=== PATIENT | female | born 1935 | race Caucasian/White ===

== ENCOUNTER 2016-07-17 13:40 | Outpatient (RCR) | payer MEDICARE, BC ==
--- OUTSIDE RECORDS SUMMARY | 2016-05-28 14:05 | XMS REPORT | Continuity of Care Document ---
Author Author [facility] Organization [facility] Address Unknown Phone Unavailable Support Name Relationship Address Phone HIRAL WOLF MD Caregiver [facility] [address] [place] [address] JENNIFER PITTMAN FACP CCDS FACC Caregiver [address] [place] [address] DIXON HAMILTON Next Of Kin [address] [place] [address] Insurance Providers Payer Name Policy Number Subscriber Name Relationship [employer] Medicare [id number] Christa Hyatt 20 Self / Same As Patient Blue Cross [facility] Supp [id number] Christa Hyatt Self / Same As Patient Advance Directives Directive Response Recorded Date/Time Advance Directives Yes 06/01/14 7:29am Health Care Power of Front Office Help Y giulia-Dixon 06/01/14 7:29am Organ Donor No 06/01/14 7:29am Resuscitation Status Full Code 06/01/14 7:29am Problems No known problems or medical conditions. Medications Medication Dose Route Sig Days/Qty Instructions Order Date Discontinued Date Status Atenolol 100 Mg PO EVENING take 2 (50mg) tabs at hs 12/08/08 Active Atenolol 12/08/08 07/26/09 Discontinued Triamterene/HCTZ 1 Cap PO DAILY 12/08/08 Active Citalopram Hydrobromide 20 Mg PO DAILY NAME BRAND ONLY 12/08/08 Discontinued Fenofibrate 145 Mg PO DAILY 12/08/08 Active Ezetimibe 10 Mg PO DAILY EVERY AM 12/08/08 Active Aspirin 81 Mg PO DAILY 12/08/08 Active Diazepam (Valium) 5 Mg PO THREE TIMES A DAY PRN 12/08/08 Active Oxycodone Hcl/Acetaminophen 1 - 2 Tab PO EVERY 4HRS PRN 40 Qty PAIN CONTROL 12/08/08 Active Calcium Carbonate/Vitamin D3 500 Mg PO DAILY 12/08/08 08/13/12 Discontinued Multivitamins 1 Cap PO DAILY 12/08/08 08/13/12 Discontinued Atenolol 50 Mg PO DAILY 07/26/09 Active Metformin HCl (Glucophage) 500 Mg PO TWICE A DAY 06/29/10 Active Nitrofurantoin Macrocrystals 1 Cap PO TWICE A DAY Clcr <60 mL/minute: Contraindicated 05/28/11 09/27/11 Discontinued Citalopram Hydrobromide 20 Mg PO DAILY 01/22/12 Active Omeprazole 20 Mg PO DAILY 08/04/12 Active Nitrofurantoin Macrocrystals 1 Each PO BEDTIME 08/05/12 08/22/12 Discontinued Acetaminophen 650 Mg PO EVERY 6 HOURS PRN 08/22/12 06/01/14 Discontinued Multivitamins W-Minerals 1 Each PO DAILY 08/22/12 02/11/14 Discontinued Senna 2 Ea PO TWICE A DAY PRN 08/22/12 02/11/14 Discontinued Trospium Chloride 20 Mg PO EVERY 12 HOURS GIVE 1 HOUR BEFORE MEAL OR ON EMPTY STOMACH 08/22/12 02/12/14 Discontinued Nitrofurantoin Macrocrystals 100 Mg PO TWICE A DAY 08/22/12 Discontinued Trimethoprim 100 Mg PO BEDTIME 02/12/14 06/01/14 Discontinued [Urelle] 1 Tab PO FOUR TIMES DAILY 02/12/14 06/01/14 Discontinued Ascorbic Acid 1,000 Mg PO TWICE A DAY 06/01/14 Active Social History Social History Problem Response Recorded Date/Time Alcohol Use Denies Use 08/15/2012 10:30am Recreational Drug Use No 08/15/2012 10:30am Recent Foreign Travel No 08/15/2012 10:30am Recent Infectious Disease Exposure No 08/15/2012 10:30am Hospitalization with Isolation Denies 08/22/2012 8:28pm Sexually Transmitted Disease No 08/15/2012 10:30am HIV/AIDS No 08/15/2012 10:30am Smoking Status Former Smoker 06/01/2014 7:29am Query Response Start Date Stop Date Smoking Status Former Smoker 06/01/1966 Hospital Discharge Instructions No hospital discharge instructions. Plan of Care No plan of care. Functional Status No functional status results. Allergies, Adverse Reactions, Alerts Allergen Type Severity Reaction Status Last Updated IV Dye, Iodine Containing Contrast Allergy Mild Active 12/03/08 Penicillins ([id number]) Allergy Mild Active 12/03/08 Cephalosporins ([id number]) Allergy Mild Active 12/03/08 Shellfish *RETIRED-12/14/11 Allergy Mild Active 12/03/08 lisinopril ([id number]) Allergy Mild Active 12/03/08 Nifedipine Allergy Mild Active 12/03/08 morphine Allergy Mild Active 12/03/08 Codeine Allergy Mild Active 12/03/08 propoxyphene ([id number]) Allergy Unknown Active 12/08/08 acetaminophen Allergy Unknown Active 12/08/08 glucagon ([id number]) Allergy Mild Active 12/03/08 furosemide ([id number]) Allergy Unknown Active 12/08/08 Sulindac Allergy Unknown Active 12/08/08 sulfamethoxazole ([id number]) Allergy Mild Active 12/03/08 Clarithromycin Allergy Mild Active 12/03/08 metoprolol ([id number]) Allergy Mild Active 12/03/08 paroxetine ([id number]) Allergy Mild Active 12/03/08 diltiazem ([id number]) Allergy Mild Active 12/03/08 sertraline ([id number]) Allergy Severe CANNOT BREATHE Active 12/08/08 Meperidine Allergy Unknown Active 12/08/08 atorvastatin ([id number]) Allergy Mild Active 12/03/08 latex Allergy Unknown Active 12/08/08 LIPATOR Allergy Unknown Active 12/08/08 TAPE Allergy Unknown CAN USE PAPER TAPE Active 12/08/08 Immunizations Name Given Type Date of Pneumonia Vaccine 01/22/09 Historical Date of Influenza Vaccine 02/08/14 Historical Hepatitis A No Historical Hepatitis B No Historical Tetanus Booster (TDap) More than 5yrs Historical Vital Signs Acute Vital Signs Vital Response Date/Time Temperature (Fahrenheit) 96.9 degrees F (97.6 - 99.5) Temperature (Calculated Celsius) 36.45956 degrees C (36.4 - 37.5) Temperature Source Tympanic Pulse Rate (adult) 64 bpm (60 - 90) Respiratory Rate 18 bpm (12 - 24) O2 Sat by Pulse Oximetry 91 % (88 - 100) Blood Pressure 128/73 mm Hg Height (Feet) 5 feet Height (Inches) 3.00 inches Height (Calculated Centimeters) 160.442847 cm Weight (Pounds) 202 pounds Weight (Calculated Grams) 63005.660 gm Weight (Calculated Kilograms) 91.881778 kilograms Calculated BMI 35.78 Results Laboratory Results Test Name Result Units Flags Reference Collection Date/Time Result Date/ Time Comments White Blood Count 8.4 10^3/uL 4.3-11.0 05/04/2014 12:20pm 05/04/2014 12 :29pm Red Blood Count 4.77 10^6/uL 4.35-5.85 05/04/2014 12:20pm 05/04/2014 12 :29pm Hemoglobin 14.1 G/DL 11.5-16.0 05/04/2014 12:20pm 05/04/2014 12:29pm Hematocrit 44 % 35-52 05/04/2014 12:20pm 05/04/2014 12:29pm Mean Corpuscular Volume 93 FL 80-99 05/04/2014 12:20pm 05/04/2014 12: 29pm Mean Corpuscular Hemoglobin 30 PG 25-34 05/04/2014 12:20pm 05/04/2014 12:29pm Mean Corpuscular Hemoglobin Concent 32 G/DL 32-36 05/04/2014 12:20pm 12:29pm Red Cell Distribution Width 14.0 % 10.0-14.5 05/04/2014 12:20pm 2014 12:29pm Platelet Count 281 10^3/uL 130-400 05/04/2014 12:20pm 05/04/2014 12: 29pm Mean Platelet Volume 10.1 FL 7.4-10.4 05/04/2014 12:20pm 05/04/2014 12: 29pm Sodium Level 140 MMOL/L 135-145 05/04/2014 12:20pm 05/04/2014 1:00pm Potassium Level 4.6 MMOL/L 3.6-5.0 05/04/2014 12:20pm 05/04/2014 1: 00pm Chloride Level 102 MMOL/L 98-107 05/04/2014 12:20pm 05/04/2014 1:00pm Carbon Dioxide Level 27 MMOL/L 21-32 05/04/2014 12:20pm 05/04/2014 1: 00pm Blood Urea Nitrogen 28 MG/DL H 7-18 05/04/2014 12:20pm 05/04/2014 1:00pm Creatinine 0.94 MG/DL 0.60-1.30 05/04/2014 12:20pm 05/04/2014 1:00pm BUN/Creatinine Ratio 30 05/04/2014 12:20pm 05/04/2014 1:00pm Estimat Glomerular Filtration Rate 58 05/04/2014 12:20pm 2014 1:00pm GFR INTERPRETIVE DATA UNITS FOR ESTIMATED GFR (eGFR): mL/min/1.73 M2 REFERENCE RANGE FOR ESTIMATED GFR (eGFR) eGFR NORMAL eGFR >60 MODERATELY DECREASED eGFR 30-59 SEVERLY DECREASED eGFR 15-29 KIDNEY FAILURE <15 (OR DIALYSIS) Glucose Level 120 MG/DL H 70-105 05/04/2014 12:20pm 05/04/2014 1:00pm Calcium Level 10.1 MG/DL 8.5-10.1 05/04/2014 12:20pm 05/04/2014 1:00pm White Blood Count 6.7 10^3/uL 4.3-11.0 06/01/2014 7:50am 06/01/2014 7: 55am Red Blood Count 4.42 10^6/uL 4.35-5.85 06/01/2014 7:50am 06/01/2014 7: 55am Hemoglobin 13.1 G/DL 11.5-16.0 06/01/2014 7:50am 06/01/2014 7:55am Hematocrit 41 % 35-52 06/01/2014 7:50am 06/01/2014 7:55am Mean Corpuscular Volume 93 FL 80-99 06/01/2014 7:50am 06/01/2014 7: 55am Mean Corpuscular Hemoglobin 30 PG 25-34 06/01/2014 7:50am 06/01/2014 7: 55am Mean Corpuscular Hemoglobin Concent 32 G/DL 32-36 06/01/2014 7:50am 05/2014 7:55am Red Cell Distribution Width 14.2 % 10.0-14.5 06/01/2014 7:50am 2014 7:55am Platelet Count 250 10^3/uL 130-400 06/01/2014 7:50am 06/01/2014 7:55am Mean Platelet Volume 10.1 FL 7.4-10.4 06/01/2014 7:50am 06/01/2014 7: 55am Neutrophils (%) (Auto) 69 % 42-75 06/01/2014 7:50am 06/01/2014 7:55am Lymphocytes (%) (Auto) 16 % 12-44 06/01/2014 7:50am 06/01/2014 7:55am Monocytes (%) (Auto) 9 % 0-12 06/01/2014 7:50am 06/01/2014 7:55am Eosinophils (%) (Auto) 6 % 0-10 06/01/2014 7:50am 06/01/2014 7:55am Basophils (%) (Auto) 1 % 0-10 06/01/2014 7:50am 06/01/2014 7:55am Neutrophils # (Auto) 4.6 X 10^3 1.8-7.8 06/01/2014 7:50am 06/01/2014 7: 55am Lymphocytes # (Auto) 1.1 X 10^3 1.0-4.0 06/01/2014 7:50am 06/01/2014 7: 55am Monocytes # (Auto) 0.6 X 10^3 0.0-1.0 06/01/2014 7:50am 06/01/2014 7: 55am Eosinophils # (Auto) 0.4 10^3/uL H 0.0-0.3 06/01/2014 7:50am 06/01/2014 7 :55am Basophils # (Auto) 0.1 10^3/uL 0.0-0.1 06/01/2014 7:50am 06/01/2014 7: 55am Prothrombin Time 12.7 SEC 12.2-14.7 06/01/2014 7:50am 06/01/2014 8: 05am INR Comment 1.0 0.8-1.4 06/01/2014 7:50am 06/01/2014 8:05am INTERPRETIVE DATA SUGGESTED THERAPEUTIC RANGE FOR INR'S: VENOUS THROMBOSIS, PULMONARY EMBOLISM, OR PREVENTION OF SYSTEMIC EMBOLISM (EG. IN ATRIAL FIBRILLATION): 2.0 - 3.0 MECHANICAL PROSTHETIC HEART VALVES: 2.5 - 3.5* *NOTE: INR'S UP TO 4.5 MAY BE NECESSARY IN SELECTED GROUPS OF HIGH RISK PATIENTS. [employer] CONSENSUS CONFERENCE ON ANTITHROMBOTIC THERAPY (2000). Activated Partial Thromboplast Time 32 SEC 24-35 06/01/2014 7:50am 05/2014 8:05am Sodium Level 140 MMOL/L 135-145 06/01/2014 7:50am 06/01/2014 8:22am Potassium Level 4.2 MMOL/L 3.6-5.0 06/01/2014 7:50am 06/01/2014 8:22am Chloride Level 104 MMOL/L 98-107 06/01/2014 7:50am 06/01/2014 8:22am Carbon Dioxide Level 25 MMOL/L 21-32 06/01/2014 7:50am 06/01/2014 8: 22am Blood Urea Nitrogen 25 MG/DL H 7-18 06/01/2014 7:50am 06/01/2014 8:22am Creatinine 1.00 MG/DL 0.60-1.30 06/01/2014 7:50am 06/01/2014 8:22am BUN/Creatinine Ratio 25 06/01/2014 7:50am 06/01/2014 8:22am Estimat Glomerular Filtration Rate 54 06/01/2014 7:50am 06/01/2014 8:22am GFR INTERPRETIVE DATA UNITS FOR ESTIMATED GFR (eGFR): mL/min/1.73 M2 REFERENCE RANGE FOR ESTIMATED GFR (eGFR) eGFR NORMAL eGFR >60 MODERATELY DECREASED eGFR 30-59 SEVERLY DECREASED eGFR 15-29 KIDNEY FAILURE <15 (OR DIALYSIS) Glucose Level 107 MG/DL H 70-105 06/01/2014 7:50am 06/01/2014 8:22am Calcium Level 10.1 MG/DL 8.5-10.1 06/01/2014 7:50am 06/01/2014 8:22am Total Bilirubin 0.4 MG/DL 0.1-1.0 06/01/2014 7:50am 06/01/2014 8:22am Alkaline Phosphatase 42 U/L 40-136 06/01/2014 7:50am 06/01/2014 8:22am Aspartate Amino Transf (AST/SGOT) 17 U/L 5-34 06/01/2014 7:50am 2014 8:22am Alanine Aminotransferase (ALT/SGPT) 13 U/L 0-55 06/01/2014 7:50am 06/01 8:22am Total Protein 6.8 G/DL 6.4-8.2 06/01/2014 7:50am 06/01/2014 8:22am Albumin 3.8 G/DL 3.2-4.5 06/01/2014 7:50am 06/01/2014 8:22am Triglycerides Level 175 MG/DL H <150 06/01/2014 7:50am 06/01/2014 8:22am Cholesterol Level 215 MG/DL H < 200 06/01/2014 7:50am 06/01/2014 8:22am HDL Cholesterol 49 MG/DL 40-60 06/01/2014 7:50am 06/01/2014 8:22am LDL Cholesterol Direct 140 MG/DL H 1-129 06/01/2014 7:50am 06/01/2014 8: 22am VLDL Cholesterol 35 MG/DL 5-40 06/01/2014 7:50am 06/01/2014 8:22am Procedures Procedure Status Date Provider(s) Color Doppler echocardiography completed 05/13/14 JENNIFER PITTMAN MD [facility] CCDS Tracing only of electrocardiogram completed 06/01/14 JENNIFER PITTMAN MD [facility] FAC CCDS Encounters Encounter Location Date/Time Departed [facility] Day [facility] 06/01/14 7:11am Registered Clinic [facility] 05/18/14 7:18am Registered Clinic [facility] 05/13/14 8:50am Registered Clinic [facility] 05/11/14 8:45am Registered Clinic [facility] 05/11/14 7:52am Registered Clinic [facility] 05/04/14 12:06pm
[~2016-07-17 13:40] MED LIST: AC325T PO; ASCO100083 PO; ASP81TEC PO; ATEN-156 PO; ATEN100T88; ATEN50TA PO; CALC1TAB29 PO; CTLP20T PO; DEXL60CA PO; DIAZ5TAB3 PO; EZET10TA5 PO; FENO145T2 PO; METH1TAB PO; METO-351 PO; MTF500T PO; MULT-608 PO; MULT1TAB12 PO; NITR-33 PO; NITR-65 PO; NITR100C3 PO; NYST15CR TP; OMEP-10 PO; OMEP20TA33 PO; OXYC-12 PO; OXYC-197 PO; SENN1TAB76 PO; TERBIN250T PO; TRIA1CAP PO; TRIM100T7 PO; TROSP20C PO; URELLE PO
== END 2016-07-30 14:29 | disposition home or self-care (01) ==
PROVIDERS: ATTEND Family Medicine
DX: R26.9 Unspecified abnormalities of gait and mobility (principal); Z91.81 History of falling; R53.1 Weakness

== ENCOUNTER → 2016-07-19 | Outpatient (CLI) | payer MEDICARE, BC ==
[~2016-07-19] MED LIST changes: +CATHETER FLUSH 10 ML SYR IV PRN; +IOHEXOL 350 MG/ML 100 ML (OMNIPAQUE 350) VIAL IV ONE; +NS 100 ML (IVPB) BAG IV ONE
[2016-07-19 07:20] LABS: CREATININE SERUM 0.96 MG/DL (0.60-1.30)
--- NOTE | 2016-07-19 10:11 | Diagnostic Imaging Report ---
PROCEDURE: CT abdomen and pelvis with and without contrast. TECHNIQUE: Precontrast acquisitions were acquired through the abdomen and pelvis. Multiple contiguous axial images were obtained through the abdomen and pelvis after the administration of intravenous contrast. INDICATION: Chronic cystitis. 100 mL of Omnipaque 350 is administered intravenously. FINDINGS: The unenhanced phase demonstrates no definite urinary tract stones. Portions of the bladder and distal aspect of the ureter on both sides are obscured by beam hardening artifacts from bilateral hip replacement. The kidneys have symmetric enhancement and contrast excretion. No hydronephrosis. Multiple cysts are seen in the kidneys up to 2.5 cm exophytic from the lower pole of the left kidney. The lung bases demonstrate minimal atelectasis. The liver, the spleen, the pancreas, and the adrenal glands appear unremarkable. Cholecystectomy clips are seen. There are additional surgical clips around the liver and stomach. There is also evidence of mesh repair of right subcostal ventral hernia. Also near the anterior abdominal wall at the level of the umbilicus, there is a 2.6 x 1.3 cm hyperdense lobulated lesion possibly related to a mesh or calcified hematoma. There is suggestion of prior hysterectomy. There is diverticulosis. No diverticulitis. There is moderate amount of fecal material in the colon. No bowel obstruction. No significant free fluid or fluid collection in the abdomen or pelvis. The abdominal aorta is normal in caliber. No para-aortic significantly enlarged lymph node is seen. The osseous structures demonstrate advanced degenerative changes in the lower lumbar spine and SI joints. Bilateral hip replacement is seen. IMPRESSION: 1. Diverticulosis. No diverticulitis. 2. Portions of the urinary bladder and distal ureters are obscured by artifacts from bilateral hip replacements. No definitive urinary tract stone is seen. No hydronephrosis. Dictated by: Dictated on workstation # [id number]
== END ==
LOC: RAD 06:52
PROVIDERS: ATTEND Urology
DX: N30.21 Other chronic cystitis with hematuria (principal)
CPT/HCPCS: 36415; 74178; 82565; 84520

== ENCOUNTER → 2016-11-06 | Outpatient (CLI) | payer MEDICARE ==
[~2016-11-06] MED LIST changes: -IOHEXOL 350 MG/ML 100 ML (OMNIPAQUE 350) VIAL IV ONE; -NS 100 ML (IVPB) BAG IV ONE; +REGADENOSON 0.4 MG/5 ML SYR (LEXISCAN) IV ONE
[2016-11-06 13:35] VITALS: BP 156/76
[2016-11-06 13:39] VITALS: BP 150/61
[2016-11-06 13:42] VITALS: BP 164/62
--- NOTE | 2016-11-07 07:12 | STRESS TEST ---
DATE OF SERVICE: 11/06/2016 PROCEDURE: Resting and post regadenoson technetium-99M tetrofosmin SPECT CT imaging. ORDERING PHYSICIAN: Hannah Swift MD PRIMARY CARE PHYSICIAN: Dr. Bhakta. CLINICAL DIAGNOSIS: Chest discomfort. Baseline images were carried out after injection of 10.18 mCi of technetium-99M tetrofosmin. This was followed by 0.4 mg regadenoson and 29.2 mCi of technetium-99M tetrofosmin for stress imaging. The electrocardiogram showed sinus rhythm at baseline and it did not change significantly with the regadenoson infusion. She had mild chest discomfort following regadenoson infusion, which resolved in a few minutes. Review of images at rest and following stress does not indicate any significant perfusion defects consistent with any significant myocardial ischemia or infarction. Gated images show normal global left ventricular systolic function with normal regional wall motion. Left ventricular ejection fraction is calculated to be 83%. Left ventricular end diastolic volume is 25 mL. TID is absent (1). CONCLUSIONS: 1. No evidence of any significant myocardial ischemia or infarction on this study. 2. Normal regional wall motion. 3. Normal to hyperdynamic left ventricular systolic function with a calculated ejection fraction of 83%. Job ID: [id number] DocumentID: [id number] Dictated Date: 11/06/2016 15:33:59 Public Services Librarian Date: 11/07/2016 04:48:43 Dictated By: HANNAH SWIFT MD, MA, FACP, FACC,
== END ==
LOC: CARD 12:23
PROVIDERS: ATTEND Internal Medicine Cardiovascular Disease
DX: I25.10 Atherosclerotic heart disease of native coronary artery without angina pectoris (principal); I65.23 Occlusion and stenosis of bilateral carotid arteries; E11.9 Type 2 diabetes mellitus without complications; R07.89 Other chest pain; R06.09 Other forms of dyspnea
CPT/HCPCS: 78452; 93017

== ENCOUNTER → 2016-11-16 | Outpatient (CLI) | payer MEDICARE ==
[~2016-11-16] MED LIST changes: -CATHETER FLUSH 10 ML SYR IV PRN; +CYCL5TAB PO; +NITR100C10; -REGADENOSON 0.4 MG/5 ML SYR (LEXISCAN) IV ONE; +TRAM-42 PO
== END ==
LOC: CARD 13:17
PROVIDERS: ATTEND Internal Medicine Cardiovascular Disease
DX: I25.10 Atherosclerotic heart disease of native coronary artery without angina pectoris (principal); I65.23 Occlusion and stenosis of bilateral carotid arteries; E11.9 Type 2 diabetes mellitus without complications; R07.89 Other chest pain; R06.09 Other forms of dyspnea
CPT/HCPCS: 93306

== ENCOUNTER → 2016-12-11 | Outpatient (CLI) | payer MEDICARE ==
[~2016-12-11] MED LIST changes: -CYCL5TAB PO; -NITR100C10; -TRAM-42 PO
== END ==
LOC: RAD 12:43
PROVIDERS: ATTEND Obstetrics & Gynecology
DX: Z12.31 Encounter for screening mammogram for malignant neoplasm of breast (principal)
CPT/HCPCS: 77067

== ENCOUNTER 2017-02-27 18:48 | Emergency (ER) | payer MEDICARE ==
[~2017-02-27] VITALS: Ht 160 cm; Wt 83.9 kg
[2017-02-27] MEDS ORDERED: NITR100C10 (18:54)
[2017-02-27] MEDS ORDERED: TETANUS,DIPTH,PERTUSS P/F (BOOSTRIX) 0.5 ML VIAL IM ONE (19:00)
--- NOTE | 2017-02-27 19:11 | ED Fall/Injury ---
General Chief Complaint: Trauma-Non Activation Stated Complaint: FALL Nursing Triage Note: fall Source: patient, EMS History of Present Illness Time seen by provider: 18:48 Initial Comments PT ARRIVES VIA EMS -NO IMMOBILIZATION PT STATES SHE WAS IN THE KITCHEN AND TRIPPED ON A RUG AND FELL FORWARD, ENDING UP IN THE LIVING ROOM. HITTING FACE AND CHEST AND KNEES ON THE FLOOR NO LOSS OF CONSCIOUSNESS C/O PAIN TO FACE, MOUTH, TEETH C/O PAIN TO MID CHEST C/O BILATERAL KNEES NO VISION CHANGES NO PARESTHESIAS OR MOTOR DEFICITS NO NECK OR BACK PAIN NO DIZZINESS NO NAUSEA/VOMITING NO HEADACHE Location Injury Occurred: home PCP: DR. WOLF Allergies and Home Medications Allergies Coded Allergies: sertraline (Verified Allergy, Severe, CANNOT BREATHE, 12/08/08) Cephalosporins (Unverified Allergy, Mild, 12/03/08) Iodinated Contrast Media - IV Dye (Unverified Allergy, Mild, 12/03/08) Penicillins (Unverified Allergy, Mild, 12/03/08) Shellfish (Unverified Allergy, Mild, 12/03/08) atorvastatin (Unverified Allergy, Mild, 12/03/08) clarithromycin (Unverified Allergy, Mild, 12/03/08) codeine (Unverified Allergy, Mild, PT HAS RECEIVED HYDROMORPHONE IN THE PAST, 02/07/16) diltiazem (Unverified Allergy, Mild, 12/03/08) glucagon (Unverified Allergy, Mild, 12/03/08) lisinopril (Unverified Allergy, Mild, 12/03/08) metoprolol (Unverified Allergy, Mild, 12/03/08) morphine (Unverified Allergy, Mild, PT HAS RECEIVED HYDROMORPHONE IN THE PAST, 02/07/16) nifedipine (Unverified Allergy, Mild, 12/03/08) paroxetine (Unverified Allergy, Mild, 12/03/08) sulfamethoxazole (Unverified Allergy, Mild, 12/03/08) acetaminophen (Verified Allergy, Unknown, 12/08/08) furosemide (Unverified Allergy, Unknown, 12/08/08) latex (Verified Allergy, Unknown, 12/08/08) meperidine (Verified Allergy, Unknown, PATIENT HAS RECEIVED FENTANYL IN THE PAST, 02/07/16) propoxyphene (Verified Allergy, Unknown, 12/08/08) sulindac (Verified Allergy, Unknown, 12/08/08) Uncoded Allergies: TAPE (Allergy, Unknown, CAN USE PAPER TAPE, 12/08/08) Home Medications Aspirin 81 Mg Tabec, 81 MG PO DAILY, (Reported) Citalopram Hydrobromide 20 Mg Tablet, 20 MG PO BID, (Reported) Cyclobenzaprine HCl 5 Mg Tablet, 5 MG PO Q8H, #15 Prescribed by: ROSA FLORES on 02/27/173 Diazepam 5 Mg Tablet, 5 MG PO TID PRN, (Reported) PANIC ATTACKS/ANXIETY DISORDER Ezetimibe 10 Mg Tablet, 10 MG PO DAILY, (Reported) EVERY AM Fenofibrate,Micronized 145 Mg Tablet, 145 MG PO DAILY, (Reported) NAME BRAND ONLY Metformin Hcl 500 Mg Tablet, 500 MG PO BID, (Reported) Methenamine Hippurate 1 Gm Tablet, 1 GM PO BID, (Reported) Metoprolol Succinate 25 Mg Tab.er.24h, 25 MG PO BID, (Reported) Nitrofurantoin Monohyd/M-Cryst 100 Mg Capsule, 100 MG PO BID, (Reported) started 01/30/16 for 10 days Nitrofurantoin Monohyd/M-Cryst 100 Mg Capsule, (Reported) Omeprazole Magnesium 20 Mg Tablet.dr, 20 MG PO BID, (Reported) Tramadol HCl 50 Mg Tablet, 50 MG PO Q4H, #20 Prescribed by: ROSA FLORES on 02/27/172142 Triamterene/Hctz 1 Each Capsule, 1 CAP PO DAILY, (Reported) NAME BRAND ONLY Constitutional: no symptoms reported Eyes: No Symptoms Reported Ears, Nose, Mouth, Throat: see HPI Respiratory: no symptoms reported Cardiovascular: see HPI, chest pain Gastrointestinal: other (LOWER ABDOMINAL PAIN FROM UTI) Genitourinary: dysuria, pain, other (DX WITH UTI YESTERDAY AT DR. WOLF'S OFFICE. ON MACROBID. HAS CHRONIC UTI'S AND SEES SPECIALIST IN [place] FOR THEM) Musculoskeletal: see HPI, other (BILATERAL KNEES AND CHEST ) Skin: other (LACERATION ABOVE RIGHT UPPER LIP) Psychiatric/Neurological: No Symptoms Reported, Denies Headache, Denies Numbness, Denies Paresthesia, Denies Tingling, Denies Weakness Past Mlhhfhd-Tulamx-Sahafh Hx Patient Social History Alcohol Use: Denies Use Recreational Drug Use: No Smoking Status: Former Smoker Former Smoker, Quit: Jan 30, 1966 2nd Hand Smoke Exposure: No Recent Foreign Travel: No Contact w/Someone Who Travel: No Recent Infectious Disease Expo: No Recent Hopitalizations: No Immunizations Up To Date Tetanus Booster (TDap): More than 5yrs PED Vaccines UTD: No Date of Pneumonia Vaccine: Jan 22, 2009 Date of Influenza Vaccine: Feb 01, 2016 Seasonal Allergies Seasonal Allergies: Yes Surgeries History of Surgeries: Yes (BILATERAL KNEE REPLACEMENTS; BILATERAL HIP REPLACEMENTS) Surgeries: Gallbladder, Joint Replacement, Orthopedic Respiratory History of Respiratory Disorde: No Cardiovascular History of Cardiac Disorders: Yes Cardiac Disorders: Heart Murmur, Hypertension, Valvular Heart Disease Neurological History of Neurological Disord: Yes Neurological Disorders: Concussion, Headaches /Migraines 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 System : No Hx 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 Disorders: Yes Sexually Transmitted Disease: No HIV/AIDS: No Female 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 Disorders: 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 Genitourinary History of Genitourinary Disor: Yes Genitourinary Disorders: UTI-Chronic Gastrointestinal History of Gastrointestinal Di: Yes Gastrointestinal Disorders: Gastroesophageal Reflux, Ulcer Musculoskeletal History of Musculoskeletal Dis: Yes Musculoskeletal Disorders: Arthritis, Chronic Back Pain Endocrine History of Endocrine Disorders: Yes Endocrine Disorders: Diabetes, Non-Insulin dep HEENT History of HEENT Disorders: No Loss of Vision: Bilateral Hearing Impairment: Denies Cancer History of Cancer: No Cancer: Skin Psychosocial History of Psychiatric Problem: Yes Behavioral Health Disorders: Anxiety, PTSD, Depression Integumentary History of Skin or Integumenta: No Blood Transfusions History of Blood Disorders: No Adverse Reaction to a Blood Tr: No Family Medical History Significant Family History: Heart Disease, Cancer, Diabetes Family Medial History: Arthritis G8 BROTHER G8 SISTER Cardiovascular disease 19 MOTHER Completed stroke G8 BROTHER G8 SISTER Congenital disease Dementia G8 SISTER Diabetes mellitus G8 BROTHER Hypertension 19 FATHER 19 MOTHER G8 BROTHER G8 SISTER Respiratory disorder G8 SISTER Physical Exam Vital Signs Vital Sign - Last 12Hours 02/27/17 18:55 Temp 98.9 Pulse 75 Resp 16 B/P (MAP) 177/78 Pulse Ox 97 O2 Delivery Room Air Capillary Refill : Less Than 3 Seconds General Appearance: WD/WN, no apparent distress, other (WEARING VERY LARGE AMOUNTS OF JEWELRY--MULTIPLE NECKLACES, EARRINGS, BRACELETS, RINGS, ANKLE BRACELET) HEENT: PERRL/EOMI, other (LACERATION ABOVE RIGHT UPPER LIP. RIGHT UPPPER LIP WITH MODERATE SWELLING; TEETH SORE TO PERCUSSION BUT NOT LOOSE AND NO OBVIOUS DENTAL INJURY. HAS BRUISING TO BONY PROTRUBERANCE TO RIGHT UPPER GUM. HAS SYMMETRICAL BONY PROTRUBERANCE ON THE LEFT, BUT NO INJURY NOTED TO THAT SIDE. NO THROUGH AND THROUGH LIP LACERATION) Neck: non-tender Cardiovascular: regular rate, rhythm, systolic murmur (2/6) Respiratory: normal breath sounds, no respiratory distress, no accessory muscle use, other (MODERATE MID CHEST TENDERNESS) Peripheral Pulses: 1+ Dorsalis Pedis (R), 1+ Left Dors-Pedis (L), 1+ Radial Pulses (R), 1+ Radial Pulses (L) Gastrointestinal: normal bowel sounds, non tender, soft Back: no CVA tenderness Extremities: no calf tenderness, normal capillary refill, pedal edema (1-2+ EDEMA VS BODY HABITUS; BILATERAL KNEE TENDERNESS, NO SWELLING. MINOR ABRASION TO RIGHT KNEE. FULL ROM OF BOTH KNEES. 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, no motor/sensory deficits, alert, normal mood/affect, oriented x 3 Skin: normal color, warm/dry, other (LACERATION NOTED ABOVE) [place] Coma Score Best Eye Response: (4) Open Spontaneously Best Verbal Response: (5) Oriented Best Motor Response: (6) Obeys Commands Tootie Total: 15 Laceration Repair : Other Wound Location ABOVE RIGHT UPPER LIP Wound Length (cm): 1.5 Wound's Depth, Shape: flap (C-SHAPED) Wound Explored: clean Betadine Prep?: No (BETASEPT AND SALINE) Progress/Results/Core Measures Results/Orders Lab Results Laboratory Tests Test 02/27/17 19:10 02/27/17 20:20 Range/Units White Blood Count 7.6 4.3-11.0 10^3/uL Red Blood Count 4.19 L 4.35-5.85 10^6/uL Hemoglobin 12.3 11.5-16.0 G/DL Hematocrit 38 35-52 % Mean Corpuscular Volume 91 80-99 FL Mean Corpuscular Hemoglobin 29 25-34 PG Mean Corpuscular Hemoglobin Concent 33 32-36 G/DL Red Cell Distribution Width 14.6 H 10.0-14.5 % Platelet Count 258 130-400 10^3/uL Mean Platelet Volume 9.9 7.4-10.4 FL Neutrophils (%) (Auto) 71 42-75 % Lymphocytes (%) (Auto) 14 12-44 % Monocytes (%) (Auto) 10 0-12 % Eosinophils (%) (Auto) 4 0-10 % Basophils (%) (Auto) 1 0-10 % Neutrophils # (Auto) 5.4 1.8-7.8 X 10^3 Lymphocytes # (Auto) 1.1 1.0-4.0 X 10^3 Monocytes # (Auto) 0.8 0.0-1.0 X 10^3 Eosinophils # (Auto) 0.3 0.0-0.3 10^3/uL Basophils # (Auto) 0.0 0.0-0.1 10^3/uL Sodium Level 139 135-145 MMOL/L Potassium Level 4.3 3.6-5.0 MMOL/L Chloride Level 103 98-107 MMOL/L Carbon Dioxide Level 24 21-32 MMOL/L Anion Gap 12 5-14 MMOL/L Blood Urea Nitrogen 21 H 7-18 MG/DL Creatinine 0.91 0.60-1.30 MG/DL Estimat Glomerular Filtration Rate 60 BUN/Creatinine Ratio 23 Glucose Level 145 H 70-105 MG/DL Calcium Level 10.0 8.5-10.1 MG/DL Total Bilirubin 0.3 0.1-1.0 MG/DL Aspartate Amino Transf (AST/SGOT) 18 5-34 U/L Alanine Aminotransferase (ALT/SGPT) 14 0-55 U/L Alkaline Phosphatase 54 40-136 U/L Troponin I < 0.30 <0.30 NG/ML Total Protein 7.4 6.4-8.2 GM/DL Albumin 3.7 3.2-4.5 GM/DL Prothrombin Time 13.1 12.2-14.7 SEC INR Comment 1.0 0.8-1.4 Activated Partial Thromboplast Time 27 24-35 SEC My Orders Orders - ROSA FLORES DO Dipht,Jonathan(Acell),Tet Adult (Boostrix (02/27/17 19:00) Saline Lock/Iv-Start (02/27/17 18:59) Ekg Tracing (02/27/17 18:59) Monitor-Rhythm Ecg Trace Only (02/27/17 18:59) Ct Head/Face/Cervical Wo (02/27/17 18:59) Ct Thoracic/Lumbar Spine Wo (02/27/17 18:59) Cbc With Automated Diff (02/27/17 18:59) Comprehensive Metabolic Panel (02/27/17 18:59) Protime With Inr (02/27/17 18:59) Partial Thromboplastin Time (02/27/17 18:59) Troponin I (02/27/17 18:59) Chest 1 View, Ap/Pa Only (02/27/17 18:59) Knee, Left, 3 Views (02/27/17 18:59) Knee, Right, 3 Views (02/27/17 18:59) Pelvis (02/27/17 18:59) Cervical Collar (02/27/17 19:06) Ct Chest Wo (02/27/17 18:59) Medications Given in ED Current Medications Medications Dose Ordered Sig/Gilberto Route Start Time Stop Time Status Last Admin Dose Admin Diphtheria/ Tetanus/Acell Pertussis 0.5 ml ONCE ONCE IM 02/27/17 19:00 02/27/17 19:02 DC 02/27/17 19:16 0.5 ML Vital Signs/I&O Vital Sign - Last 12Hours 02/27/17 02/27/17 18:55 21:52 Temp 98.9 98.1 Pulse 75 71 Resp 16 16 B/P (MAP) 177/78 Pulse Ox 97 98 O2 Delivery Room Air Room Air Blood Pressure Mean: 111 Progress Note : Progress Note PT PLACED IN CERVICAL COLLAR ON ARRIVAL AND JEWELRY REMOVED AND GIVEN TO GRAND DAUGHTER ECG Initial ECG Impression Time: 19:11 Initial ECG Rate: 69 Initial ECG Impression: Normal Initial ECG Comparisson: No Previous ECG Available Diagnostic Imaging Comments CXR--NO ACUTE PROCESS, PER RADIOLOGIST REPORT @ 2047 PELVIS XRAY--NO ACUTE PROCESS, PENDING RADIOLOGIST REVIEW--NO REPORT AT TIME OF DISMISSAL LEFT KNEE XRAYS--NO ACUTE PROCESS, PER RADIOLOGIST REPORT @ 2047 RIGHT KNEE XRAYS--NO ACUTE PROCESS, PENDING RADIOLOGIST REVIEW--NO REPORT AT TIME OF DISMISSAL CT THORACIC AND LUMBAR SPINE--DEGENERATIVE CHANGES, NO ACUTE PROCESS, PER RADIOLOGIST REPORT @ 2047 CT HEAD/MAXILLOFACIALS / CERVICAL SPINE--NO ACUTE PROCESS, PER RADIOLOGIST REPORT @ 2137 CT CHEST--NO ACUTE PROCESS, ASVD, THYROMEGALY, PER RADIOLOGIST REPORT @ 2105 Reviewed: Reviewed by Me Departure Impression Impression: Primary Impression: Status post fall Additional Impressions: Facial contusion Facial laceration Cervical strain BILATERAL KNEE CONTUSIONS Chest wall contusion Kgldqyjlod-zrpvirstr-zyvcxxp (DPT) vaccination administered at current visit Minor head injury without loss of consciousness Disposition: HOME, SELF-CARE Condition: Stable Departure-Patient Inst. Referrals: HIRAL WOLF MD (PCP/Family) Primary Care Physician Patient Instructions: CHEST CONTUSION, Cervical Muscle Strain (DC), Contusion ( DC), Diphtheria and Tetanus Toxoids, and Acellular Pertussis Vaccine, Laceration Repair With Glue (DC), Minor Head Injury (DC) Add. Discharge Instructions: ICE TO SORE AREAS AT 20 MINUTE INTERVALS LEAVE SKIN GLUE ALONE--WILL FALL OFF ON IT'S OWN IN A FEW DAYS FOLLOW UP WITH DR. WOLF IN 1 WEEK IF NO BETTER All discharge instructions reviewed with patient and/or family. Voiced understanding. Scripts Tramadol HCl (Ultram) 50 Mg Tablet 50 MG PO Q4H, #20 TAB Prov: ROSA FLORES DO 02/27/17 Cyclobenzaprine HCl (Cyclobenzaprine HCl) 5 Mg Tablet 5 MG PO Q8H for Muscle Cramps, #15 TAB Prov: ROSA FLORES DO 02/27/17 ROSA FLORES DO Feb 27, 2017 19:11
[2017-02-27 19:19] LABS: BASOPHILS % (AUTO) 1 % (0-10); EOSINOPHILS # (AUTO) 0.3 10^3/uL (0.0-0.3); EOSINOPHILS % (AUTO) 4 % (0-10); LYMPHOCYTES # (AUTO) 1.1 X 10^3 (1.0-4.0); LYMPHOCYTES % (AUTO) 14 % (12-44); MEAN CORPUSCULAR HEMOGLOBIN 29 PG (25-34); MEAN CORPUSCULAR HGB CONC 33 G/DL (32-36); MEAN CORPUSCULAR VOLUME 91 FL (80-99); MEAN PLATELET VOLUME 9.9 FL (7.4-10.4); MONOCYTES # (AUTO) 0.8 X 10^3 (0.0-1.0); MONOCYTES % (AUTO) 10 % (0-12); NEUTROPHILS # (AUTO) 5.4 X 10^3 (1.8-7.8); NEUTROPHILS % (AUTO) 71 % (42-75); PLATELET COUNT 258 10^3/uL (130-400); RED BLOOD COUNT 4.19 10^6/uL (4.35-5.85); RED CELL DISTRIBUTION WIDTH 14.6 % (10.0-14.5); WHITE BLOOD COUNT 7.6 10^3/uL (4.3-11.0)
[2017-02-27 19:41] LABS: ALANINE AMINOTRANSFERASE 14 U/L (0-55); ALBUMIN 3.7 GM/DL (3.2-4.5); ANION GAP 12 MMOL/L (5-14); ASPARTATE AMINO TRANSFERASE 18 U/L (5-34); BILIRUBIN,TOTAL 0.3 MG/DL (0.1-1.0); BLOOD UREA NITROGEN 21 MG/DL (7-18); BUN/CREATININE RATIO 23; CARBON DIOXIDE 24 MMOL/L (21-32); CHLORIDE 103 MMOL/L (98-107); CREATININE SERUM 0.91 MG/DL (0.60-1.30); GFR ESTIMATED 60; GLUCOSE 145 MG/DL (70-105); POTASSIUM 4.3 MMOL/L (3.6-5.0); SODIUM 139 MMOL/L (135-145); TOTAL PROTEIN 7.4 GM/DL (6.4-8.2)
[2017-02-27 19:47] LABS: TROPONIN I < 0.30 NG/ML (<0.30)
--- NOTE | 2017-02-27 20:19 | Diagnostic Imaging Report ---
INDICATION: Chest injury from a fall Portable chest 8:22 PM Heart and mediastinum are normal. Lungs are clear. There are no effusions or pneumothoraces. IMPRESSION: Negative chest Dictated by: Dictated on workstation # [id number]
--- NOTE | 2017-02-27 20:20 | Diagnostic Imaging Report ---
INDICATION: Left knee injury from a fall. EXAMINATION: Three views of the left knee were obtained. FINDINGS: Postop changes from joint arthroplasty. The prosthesis appears to be well seated. Alignment is normal. There is no evidence of loosening or fracture. IMPRESSION: Unremarkable postoperative left knee. Dictated by: Dictated on workstation # [id number]
[2017-02-27 20:40] LABS: PROTHROMBIN TIME PATIENT 13.1 SEC (12.2-14.7)
--- NOTE | 2017-02-27 20:46 | Diagnostic Imaging Report ---
INDICATION: Fall. Trauma. COMPARISON: None TECHNIQUE: Routine noncontrast CT of the thoracic and lumbar spine was performed. Coronal and sagittal reformats were also performed and reviewed. FINDINGS: CT thoracic spine: Static alignment of the thoracic spine is maintained. There is no significant anteroretrolisthesis. There is no evidence of jumped facets. Vertebral body heights are maintained. There is no evidence of acute fracture. No bony fragments are seen within the spinal canal. There are multilevel degenerative changes consisting of intervertebral disc height loss with anterior and posterior disc osteophyte complex formations and multilevel facet arthropathy. Included portions of the lungs are obscured secondary to motion artifact, but show no gross acute abnormalities. Note is also made of calcified aortic and coronary atherosclerosis. CT lumbar spine: Static alignment of the lumbar spine is maintained as well. There is no significant anteroretrolisthesis. There is no evidence of jumped facets. Vertebral body heights are maintained. There is no evidence of acute fracture. No bony fragments are seen within the spinal canal. There are moderate multilevel degenerative changes consisting of intervertebral disc height loss with anterior and posterior disc osteophyte complex formations, as well as multilevel facet arthropathy. Pre-and paravertebral soft tissue structures are unremarkable. Moderate calcified aortic and arterial atherosclerosis is noted. IMPRESSION: 1. No CT evidence of acute fracture or dislocation of the thoracic or lumbar spine. Dictated by: Dictated on workstation # [id number]
--- NOTE | 2017-02-27 21:01 | Diagnostic Imaging Report ---
PROCEDURE: CT chest without contrast. TECHNIQUE: Multiple contiguous axial images were obtained through the chest without the use of intravenous contrast. INDICATION: Fall. Chest pain. Shoulder pain. COMPARISON: None FINDINGS: The cardiomediastinal structures show mild cardiomegaly. There is advanced calcified aortic and coronary atherosclerosis. There is no large pericardial effusion. Single borderline prominent AP window lymph node measures 8 mm in shortest axis dimension. Otherwise, no abnormal mediastinal, hilar, nor axillary adenopathy is seen on either side. Note is made of thyromegaly. Lung windows show mild bibasilar dependent atelectasis. There is no effusion or pneumothorax on either side. No pulmonary parenchymal masses are identified. Bony structures show no acute abnormalities. Included portions of the upper abdomen are unremarkable as well. IMPRESSION: 1. No acute cardiopulmonary process. 2. Advanced diffuse calcified aortic and coronary atherosclerosis. 3. Thyromegaly. Dictated by: Dictated on workstation # [id number]
--- NOTE | 2017-02-27 21:25 | Diagnostic Imaging Report ---
PROCEDURE: CT head, face, and cervical spine without contrast. TECHNIQUE: Multiple contiguous axial images were obtained through the head, neck, and facial bones without the use of intravenous contrast. Sagittal and coronal reformations through the cervical spine and facial bones were also performed. INDICATION: Fall. Trauma to the face. COMPARISON: 11/18/2014 FINDINGS: CT head: The ventricles and cortical sulci are diffusely prominent, compatible with age-related volume loss. There are confluent areas of abnormal, low attenuation in the periventricular white matter. This is consistent with chronic small vessel ischemic changes. There is no midline shift or mass-effect. No acute intra-axial hemorrhage is seen. There are no abnormal areas of increased or decreased density to suggest acute hemorrhage or edema. No extra-axial masses or collections are present. The bony calvarium is intact. CT facial bones: There is no CT evidence of acute fracture or dislocation of the facial bones. The zygomatic arches are intact, bilaterally. Medial and lateral pterygoid plates are intact as well. There is no fracture or dislocation of the mandible. There is no fracture of the alveolar ridge of the maxilla. Paranasal sinuses show minimal mucosal thickening of the bilateral maxillary sinuses. No abnormal air-fluid levels are seen. There is no fracture of the paranasal sinuses. Nasal bones are intact, bilaterally. There is moderate leftward deviation of the anterior nasal bony septum. This, however, is felt to be on a congenital or developmental basis. Otherwise, the bony nasal septum is intact as well. There is no orbital fracture. The globes are symmetric. Periorbital soft tissue structures are unremarkable. CT cervical spine: Static alignment of the cervical spine is maintained. There is no significant anteroretrolisthesis. There is no evidence of jumped facets. Vertebral body heights are maintained. There is no evidence of acute fracture. No bony fragments are seen within the spinal canal. There are advanced multilevel degenerative changes consisting of intervertebral disc height loss with large anterior and posterior disc osteophyte complex formations. These changes appear greatest at the C4-C5 through C6-C7 levels. Evaluation of the surrounding soft tissue structures demonstrates thyromegaly, left greater than right. Note is made of calcified carotid atherosclerosis. IMPRESSION: 1. No acute intracranial abnormality. No CT evidence of mass, acute infarct or intracranial hemorrhage. 2. Chronic small vessel ischemic changes in deep white matter. 3. No CT evidence of acute fracture or dislocation of the facial bones. 4. No CT evidence of acute fracture or dislocation of the cervical spine. 5. Advanced degenerative changes of the cervical spine. 6. Thyromegaly. Correlation with dedicated thyroid sonogram is recommended and could be performed on a nonemergent basis. Dictated by: Dictated on workstation # [id number]
[2017-02-27] MEDS ORDERED: TRAM-42 PO (21:43)
[2017-02-27] MEDS ORDERED: CYCL5TAB PO (21:43)
[2017-02-27 21:52] VITALS: BP 162/99
--- NOTE | 2017-02-28 00:33 | Diagnostic Imaging Report ---
INDICATION: Fall. COMPARISON: None FINDINGS: Single frontal radiographic view of the pelvis was obtained and demonstrates postsurgical changes of previous bilateral total hip replacements. Femoral and acetabular components appear well-seated on this single frontal view. Components also appear well aligned on this single view. No acute osseous abnormalities of the pelvis are identified. There is no evidence of acute fracture. SI joints and pubic symphysis are within normal limits. No unexpected radiopaque foreign bodies are seen. IMPRESSION: 1. No radiographic evidence of acute fracture or dislocation of the pelvis. 2. Postsurgical changes of previous bilateral hip replacements. Dictated by: Dictated on workstation # [id number]
--- NOTE | 2017-02-28 06:56 | Diagnostic Imaging Report ---
INDICATION: Right knee injury from a fall 3 views of the right knee show postop changes from joint arthroplasty. There is no fracture or dislocation. IMPRESSION: Postop changes right knee. No evidence of fracture or loosening of the prosthesis. Dictated by: Dictated on workstation # [id number]
== END 2017-02-27 21:51 | disposition home or self-care (01) ==
LOC: EDUNIT# 18:48 → ER 18:49
DX: S09.90XA Unspecified injury of head, initial encounter (principal); S01.511A Laceration without foreign body of lip, initial encounter; S13.4XXA Sprain of ligaments of cervical spine, initial encounter; S80.01XA Contusion of right knee, initial encounter; S20.219A Contusion of unspecified front wall of thorax, initial encounter; G43.909 Migraine, unspecified, not intractable, without status migrainosus; K21.9 Gastro-esophageal reflux disease without esophagitis; I10 Essential (primary) hypertension; M19.90 Unspecified osteoarthritis, unspecified site; E11.9 Type 2 diabetes mellitus without complications; F41.9 Anxiety disorder, unspecified; F32.9 Major depressive disorder, single episode, unspecified; F43.10 Post-traumatic stress disorder, unspecified; Z82.49 Family history of ischemic heart disease and other diseases of the circulatory system; Z23 Encounter for immunization; Z87.440 Personal history of urinary (tract) infections; Z87.19 Personal history of other diseases of the digestive system; Z79.82 Long term (current) use of aspirin; Z79.84 Long term (current) use of oral hypoglycemic drugs; Z87.891 Personal history of nicotine dependence; Z96.653 Presence of artificial knee joint, bilateral; Z96.643 Presence of artificial hip joint, bilateral; W01.198A Fall on same level from slipping, tripping and stumbling with subsequent striking against other object, initial encounter; Y92.000 Kitchen of unspecified non-institutional (private) residence as the place of occurrence of the external cause
CPT/HCPCS: 12011; 36415; 70450; 70486; 71010; 71250; 72125; 72128; 72131; 72170; 73562; 80053; 84484; 85025; 85610; 85730; 90715; 93005; 93041

== ENCOUNTER → 2017-03-14 | Outpatient (CLI) | payer MEDICARE ==
[~2017-03-14] VITALS: Ht 160 cm; Wt 83.9 kg
[~2017-03-14] MED LIST changes: +ASPI-999 PO; +CITA40TA19 PO; +CYCL5TAB PO; +MECL-106 PO; +NF-SOLIF5T PO; +NITR100C10; +TRAM-42 PO
== END ==
LOC: PREOP 05:50
PROVIDERS: ATTEND Surgery
DX: Z01.818 Encounter for other preprocedural examination (principal); R13.10 Dysphagia, unspecified

== ENCOUNTER → 2017-03-15 | Outpatient (CLI) | payer MEDICARE ==
--- NOTE | 2017-03-15 10:01 | Diagnostic Imaging Report ---
PROCEDURE: US Thyroid. TECHNIQUE: Multiple real-time grayscale images were obtained of the thyroid in various projections. INDICATION: Intermittent hoarseness and fatigue. FINDINGS: The right thyroid lobe is 4.7 x 2.1 x 2 cm. The left lobe is 5.2 x 2.5 x 2.2 cm. There are multiple thyroid nodules seen up to 2.1 x 1.2 x 1.4 cm in the inferior aspect of the right lobe and up to 2.3 x 1.2 x 2.2 cm in the upper aspect of the left lobe. Smaller other nodules in the inferior aspect of left lobe are seen. IMPRESSION: Multiple bilateral thyroid nodules, likely related to goiter. Dictated by: Dictated on workstation # [id number]
== END ==
LOC: RAD 07:48
PROVIDERS: ATTEND Surgery
DX: E04.2 Nontoxic multinodular goiter (principal); R53.83 Other fatigue; R49.0 Dysphonia
CPT/HCPCS: 76536

== ENCOUNTER → 2017-03-28 | Outpatient (CLI) | payer MEDICARE ==
[~2017-03-28] VITALS: Ht 160 cm; Wt 83.9 kg
[~2017-03-28] MED LIST changes: +LIDOCAINE 1% INJ 50 ML (XYLOCAINE) VIAL ONE
[2017-03-28 12:40] VITALS: BP 122/71
[2017-03-28 13:11] VITALS: BP 121/70
[2017-03-28] MEDS: LIDOCAINE 1% INJ 50 ML (XYLOCAINE) VIAL IJ ONE (13:12)
--- NOTE | 2017-03-28 16:51 | Diagnostic Imaging Report ---
EXAMINATION: US-guided core biopsy-thyroid. INDICATION: Right thyroid nodule. Current history and physical and other medical records are reviewed prior to the procedure. CONSENT: Informed consent was obtained from the patient. The risks, benefits, potential complications and alternatives were reviewed and all questions answered to the patient's satisfaction. The patient's vital signs, cardiac rhythm, and pulse oximetry with observed throughout the procedure by qualified nursing personnel. Sedation/medications: none. FINDINGS: Right thyroid nodule. PROCEDURE: After maximal sterile barrier technique preparation and draping, 1% lidocaine was utilized for local anesthesia. With the patient in supine position, and via anterior approach, a 19-gauge guide needle is introduced into the right thyroid nodule under live ultrasound guidance. After confirming adequate positioning with saved ultrasound images, multiple 20 gauge core biopsy specimens were obtained. The patient tolerated the procedure well with no immediate complications. IMPRESSION: Successful US-guided core biopsy of right thyroid nodule. Dictated by: Dictated on workstation # [id number]
--- NOTE | 2017-03-28 16:56 | Diagnostic Imaging Report ---
EXAMINATION: US-guided core biopsy-thyroid. INDICATION: Left thyroid nodule. Current history and physical and other medical records are reviewed prior to the procedure. CONSENT: Informed consent was obtained from the patient. The risks, benefits, potential complications and alternatives were reviewed and all questions answered to the patient's satisfaction. The patient's vital signs, cardiac rhythm, and pulse oximetry with observed throughout the procedure by qualified nursing personnel. Sedation/medications: none. FINDINGS: Left thyroid nodule. PROCEDURE: After maximal sterile barrier technique preparation and draping, 1% lidocaine was utilized for local anesthesia. With the patient in supine position, and via anterior approach, a 19-gauge guide needle is introduced into the left thyroid nodule under live ultrasound guidance. After confirming adequate positioning with saved ultrasound images, multiple 20 gauge core biopsy specimens were obtained. The patient tolerated the procedure well with no immediate complications. IMPRESSION: Successful US-guided core biopsy of left thyroid nodule. Dictated by: Dictated on workstation # [id number]
== END ==
LOC: RAD 12:26
PROVIDERS: ATTEND Surgery
DX: E04.1 Nontoxic single thyroid nodule (principal)
CPT/HCPCS: 76942

== ENCOUNTER 2017-04-09 05:39 | Outpatient (CLI) | payer MEDICARE ==
[~2017-04-09] VITALS: Ht 156.2 cm; Wt 83.9 kg
[~2017-04-09 05:39] MED LIST changes: -LIDOCAINE 1% INJ 50 ML (XYLOCAINE) VIAL ONE
[2017-04-09] MEDS ORDERED: ASCO-262 PO (15:00)
[2017-04-09] MEDS ORDERED: METF500T4 PO (15:00)
[2017-04-09] MEDS ORDERED: CALC-901 PO (15:00)
[2017-04-09] MEDS ORDERED: METO-333 PO (15:13)
[2017-04-09] MEDS ORDERED: METH1TAB21 PO (15:13)
[2017-04-09] MEDS ORDERED: OMEP20CA12 PO (15:13)
== END 2017-04-09 15:14 ==
LOC: PREOP 05:39
PROVIDERS: ATTEND Surgery
DX: Z01.818 Encounter for other preprocedural examination (principal); E04.1 Nontoxic single thyroid nodule

== ENCOUNTER 2017-04-12 08:42 | Day surgery (SDC) | payer MEDICARE ==
[~2017-04-12] VITALS: Ht 156.2 cm; Wt 83.9 kg
[2017-04-12] VITALS (13 sets, daily range): BP systolic 129–175; BP diastolic 50–95
[~2017-04-12 08:42] MED LIST changes: +ASCO-262 PO; +CALC-901 PO; +METF500T4 PO; +METH1TAB21 PO; +METO-333 PO; +OMEP20CA12 PO
[2017-04-12] MEDS ORDERED: VANCOMYCIN INJECTION 1,000 MG in NS (IVPB) 250 ML IV ONE (09:00)
[2017-04-12 09:13] LABS: BASOPHILS # (AUTO) 0.1 10^3/uL (0.0-0.1); BASOPHILS % (AUTO) 1 % (0-10); EOSINOPHILS # (AUTO) 0.4 10^3/uL (0.0-0.3); EOSINOPHILS % (AUTO) 5 % (0-10); HEMATOCRIT 40 % (35-52); LYMPHOCYTES % (AUTO) 11 % (12-44); MEAN CORPUSCULAR HEMOGLOBIN 30 PG (25-34); MEAN CORPUSCULAR HGB CONC 32 G/DL (32-36); MEAN CORPUSCULAR VOLUME 93 FL (80-99); MEAN PLATELET VOLUME 9.8 FL (7.4-10.4); MONOCYTES # (AUTO) 0.7 X 10^3 (0.0-1.0); MONOCYTES % (AUTO) 8 % (0-12); NEUTROPHILS # (AUTO) 6.3 X 10^3 (1.8-7.8); NEUTROPHILS % (AUTO) 75 % (42-75); PLATELET COUNT 295 10^3/uL (130-400); RED BLOOD COUNT 4.35 10^6/uL (4.35-5.85); RED CELL DISTRIBUTION WIDTH 14.6 % (10.0-14.5); WHITE BLOOD COUNT 8.4 10^3/uL (4.3-11.0)
[2017-04-12] MEDS ORDERED: LACTATED RINGERS 1,000 ML IV PRN (09:22)
[2017-04-12] MEDS ORDERED: MIDAZOLAM 2 MG/2 ML (VERSED) VIAL IV ONE (09:30)
[2017-04-12 09:33] LABS: CALCIUM 10.5 MG/DL (8.5-10.1); CREATININE SERUM 1.26 MG/DL (0.60-1.30); POTASSIUM 4.2 MMOL/L (3.6-5.0)
--- NOTE | 2017-04-12 10:16 | Progress Note-Pre Operative ---
Pre-Operative Progress Note H&P Reviewed The H&P was reviewed, patient examined and no changes noted. Date Seen by Provider: Apr 03, 2017 Time Seen by Provider: 14:20 Date H&P Reviewed: Apr 12, 2017 Time H&P Reviewed: 10:16 Pre-Operative Diagnosis: Multinodular goiter ARNEL ALANIS MD Apr 12, 2017 10:16 am
[2017-04-12] MEDS ORDERED: THROMBIN SPRAY KIT 5,000 UNIT VIAL ONE (10:25)
[2017-04-12] MEDS ORDERED: BUP/EPI 0.5% 1:200,000 (MARCAINE) 10ML VIAL IJ ONE (10:25)
[2017-04-12] MEDS ORDERED: BUPIVACAINE 0.25% 30 ML (SENSORCAINE) VIAL ONE (10:26)
[2017-04-12] MEDS ORDERED: fentaNYL INJECTION 100 MCG/2 ML AMP ONE (10:30)
[2017-04-12] MEDS ORDERED: LIDOCAINE PF 2% 5 ML (XYLOCAINE) VIAL ONE (10:30)
[2017-04-12] MEDS ORDERED: proPOfol 200 MG/20 ML (DIPRIVAN) VIAL IV ONE (10:30)
[2017-04-12] MEDS ORDERED: SEVOFLURANE (ULTANE) 15 ML INHAL SOLN ONE ×9 (10:30→13:34)
[2017-04-12] MEDS ORDERED: MIDAZOLAM 2 MG/2 ML (VERSED) VIAL ONE (10:31)
[2017-04-12] MEDS ORDERED: SUCCINYLCHOLINE INJ 100 MG/5 ML SYR ONE (10:31)
[2017-04-12] MEDS ORDERED: fentaNYL INJECTION 100 MCG/2 ML AMP IVP PRN (10:45)
[2017-04-12] MEDS ORDERED: ONDANSETRON 4 MG/2 ML (SDV) Z0FRAN IVP PRN ×2 (10:45→13:30)
--- NOTE | 2017-04-12 13:26 | Operative Report ---
Operative Report Date of Procedure/Surgery Apr 12, 2017 Surgeon (s) ARNEL ALANIS MD Geology Teacher (s): Moshe Eddy (Med Student) Post-Operative Diagnosis Same Procedure Performed Total thyroidectomy Intraoperative nerve monitoring Description of Procedure Anesthesia Type: General Estimated blood loss (mL): 100 mL Specimen(s) collected/removed both lobes of thyroid Description of the Procedure Indication for procedure: This lady presented with a symptomatica, large multinodular goiter. Needle biopsy was indicative of follicular changes. She was offered total thyroidectomy in anticipation of symptom relief. Intraoperative monitoring of the recurrent laryngeal nerve was also scheduled. With regard to the operative procedure, expected recovery, complications of postoperative hematoma, hypocalcemia etc. were discussed with her. informed consent was obtained. Description of the procedure: She was placed supine on the operative table and general anesthesia induced using an endotracheal tube. Due to allergic to penicillins and cephalosporins, a gram of vancomycin was administered intravenously as prophylaxis against wound infection sequential compression devices were placed around her legs, to minimize the risk of venous thrombosis. Her neck and upper chest were prepared and draped in the usual manner. Pre- emptive analgesia was established using 0.5 percent Marcaine. A 4.5 cm transverse incision was made along the skin crease of the neck and platysma incised transversely. Flaps were raised superiorly to the level of the thyroid cartilage and inferiorly to the sternal notch. I began the dissection on the left side. The lobe was retracted medially, displaying a distinct middle thyroid vein. It was controlled using the Harmonic scalpel. Superior thyroid artery was then controlled between 0 silk sutures, reinforced with and ligated clip. Both parathyroid glands were identified and preserved, along with their blood supply. Branches of the inferior thyroid artery were controlled using likely clips. Recurrent laryngeal nerve was identified by visual inspection and no stimulation technique, being protected throughout. The isthmus was then divided using Harmonic scalpel and the left lobe sent separately for histologic examination. A similar dissection was performed on the right side. Both parathyroids were preserved, along with their blood supply. Recurrent laryngeal nerve was found in its conventional position and protected by constant visual inspection and intermittent nerve stimulation technique. We had the DRIVER MEDIC conduct Valsalva maneuver, looking for any venous bleeding. There wasn't any. Gelfoam, soaked in thrombin solution was placed along the tracheo- esophageal, to optimize hemostasis. Neck was then flexed, in preparation for closure. Cervical fascia was approximated using 3-0 Vicryl and platysma using the same material. Skin was closed using 4-0 Vicryl, in a subcuticular fashion. She tolerated the procedure well, was extubated in the operating room and taken to the recovery room in a stable condition. Findings of the Procedure Se op report Allergies and Home Medications Allergies Coded Allergies: sertraline (Verified Allergy, Severe, CANNOT BREATHE, 03/14/17) Cephalosporins (Unverified Allergy, Mild, 03/14/17) Iodinated Contrast- Oral and IV Dye (Unverified Allergy, Mild, 03/14/17) Penicillins (Unverified Allergy, Mild, 03/14/17) Shellfish (Unverified Allergy, Mild, 03/14/17) atorvastatin (Unverified Allergy, Mild, 03/14/17) clarithromycin (Unverified Allergy, Mild, 03/14/17) codeine (Unverified Allergy, Mild, PT HAS RECEIVED HYDROMORPHONE IN THE PAST, 03/14/17) diltiazem (Unverified Allergy, Mild, 03/14/17) glucagon (Unverified Allergy, Mild, 03/14/17) lisinopril (Unverified Allergy, Mild, 03/14/17) metoprolol (Unverified Allergy, Mild, 03/14/17) morphine (Unverified Allergy, Mild, PT HAS RECEIVED HYDROMORPHONE IN THE PAST, 03/14/17) nifedipine (Unverified Allergy, Mild, 03/14/17) paroxetine (Unverified Allergy, Mild, 03/14/17) sulfamethoxazole (Unverified Allergy, Mild, 03/14/17) acetaminophen (Verified Allergy, Unknown, 03/14/17) furosemide (Unverified Allergy, Unknown, 03/14/17) latex (Verified Allergy, Unknown, 03/14/17) meperidine (Verified Allergy, Unknown, PATIENT HAS RECEIVED FENTANYL IN THE PAST, 03/14/17) propoxyphene (Verified Allergy, Unknown, 03/14/17) sulindac (Verified Allergy, Unknown, 03/14/17) Uncoded Allergies: TAPE (Allergy, Unknown, CAN USE PAPER TAPE, 12/08/08) Home Medications Ascorbate Calcium 500 Mg Tablet, 500 MG PO BID, (Reported) Aspirin 81 Mg Tab.chew, 81 MG PO DAILY, (Reported) Calcium Carbonate/Vitamin D3 1 Each Tablet, 2 TAB PO Q8H, (Reported) Citalopram Hydrobromide 40 Mg Tablet, 20 MG PO BID, (Reported) TAKE 1/2 OF 40MG TAB Ezetimibe 10 Mg Tablet, 10 MG PO DAILY, (Reported) Fenofibrate Nanocrystallized 145 Mg Tablet, 145 MG PO DAILY, (Reported) Metformin HCl 500 Mg Tablet, 500 MG PO BID, (Reported) Methenamine Hippurate 1 Gm Tablet, 1 GM PO BID, (Reported) Metoprolol Tartrate 25 Mg Tablet, 25 MG PO BID, (Reported) Omeprazole 20 Mg Capsule.dr, 20 MG PO BID, (Reported) Triamterene/Hydrochlorothiazid 1 Each Capsule, 1 EACH PO DAILY, (Reported) ARNEL ALANIS MD Apr 12, 2017 1:26 pm
[2017-04-12] MEDS ORDERED: TRAM50TA2 PO (13:27)
[2017-04-12] MEDS ORDERED: LEVO100T7 PO (13:28)
--- NOTE | 2017-04-12 13:29 | Discharge Inst-Simple/Standard ---
Discharge Inst-Standard Discharge Medications New, Converted or Re-Newed RX: RX on Chart Patient Instructions/Follow Up Plan of Care/Instructions/FU: Dressings off in a.m. Follow-up in 4 weeks Activity as Tolerated: Yes Discharge Diet: ADA Diet ARNEL ALANIS MD Apr 12, 2017 1:29 pm
[2017-04-12] MEDS ORDERED: PATIENT MAY USE OWN MEDS, ALL MC SCH (15:15)
[2017-04-12] MEDS ORDERED: PANTOPRAZOLE 20 MG TABLET (PROTONIX) PO SCH (16:00)
[2017-04-12] MEDS: fentaNYL INJECTION 100 MCG/2 ML AMP IVP PRN ×3 (16:36→20:57)
[2017-04-12] MEDS: LACTATED RINGERS 1,000 ML IV SCH ×2 (18:53→23:37)
[2017-04-12] MEDS: meTOprolol TARTRATE 25 MG (LOPRESSOR) TABLET PO SCH (20:57)
[2017-04-12] MEDS: eZETimibe 10 MG (ZETIA) TABLET PO SCH (20:58)
[2017-04-13] VITALS: BP 156/67
[2017-04-13] MEDS: fentaNYL INJECTION 100 MCG/2 ML AMP IVP PRN ×3 (00:31→12:50)
[2017-04-13 04:00] VITALS: BP 131/62
[2017-04-13] MEDS: LACTATED RINGERS 1,000 ML IV SCH ×2 (04:55→16:52)
[2017-04-13] MEDS ORDERED: LEVOTHYROXINE 100 MCG (LEVOTHROID) TAB PO NR (06:00)
[2017-04-13 06:04] LABS: CALCIUM 8.6 MG/DL (8.5-10.1); CREATININE SERUM 0.9 MG/DL (0.60-1.30); POTASSIUM 4.1 MMOL/L (3.6-5.0)
[2017-04-13] MEDS: OMEPRAZOLE 20 MG (PriLOSEC) CAP NON-FORMULARY PO SCH ×2 (07:00→16:50)
[2017-04-13 08:20] VITALS: BP 145/63
[2017-04-13] MEDS: meTOprolol TARTRATE 25 MG (LOPRESSOR) TABLET PO SCH ×2 (09:02→20:25)
[2017-04-13] MEDS: FENOFIBRATE 145 MG PO SCH (09:02)
--- NOTE | 2017-04-13 12:07 | Progress Note-Standard ---
Standard Progress Note Progress Notes/Assess & Plan Date Seen by Provider: Apr 13, 2017 Time Seen by Provider: 10:55 Progress/Assessment & Plan uneventful postoperative night. Vital signs stable. Calcium within normal limits. Slight huskiness of voice, poor appetite.Apprehensive about eating. Would benefit from another day of hospitalization. Final Diagnosis multinodular goiter ARNEL ALANIS MD Apr 13, 2017 12:07 pm
[2017-04-13 12:40] VITALS: BP 143/63
[2017-04-13 16:00] VITALS: BP 179/88
[2017-04-13 20:00] VITALS: BP 139/64
[2017-04-13] MEDS: eZETimibe 10 MG (ZETIA) TABLET PO SCH (20:25)
[2017-04-13] MEDS: oxyCODONE/APAP 5/325MG (PERCOCET 5) TABLET PO PRN (21:21)
[2017-04-14] VITALS: BP 129/60
[2017-04-14 04:15] VITALS: BP 144/64
[2017-04-14] MEDS: OMEPRAZOLE 20 MG (PriLOSEC) CAP NON-FORMULARY PO SCH (06:26)
[2017-04-14] MEDS: LACTATED RINGERS 1,000 ML IV SCH (06:54)
[2017-04-14 08:30] VITALS: BP 158/72
[2017-04-14] MEDS: meTOprolol TARTRATE 25 MG (LOPRESSOR) TABLET PO SCH (09:16)
[2017-04-14] MEDS: FENOFIBRATE 145 MG PO SCH (09:16)
[2017-04-14] MEDS: oxyCODONE/APAP 5/325MG (PERCOCET 5) TABLET PO PRN ×2 (09:17→13:53)
[2017-04-14] MEDS ORDERED: OXYC-197 PO (10:44)
--- NOTE | 2017-04-14 11:28 | Progress Note-Standard ---
Standard Progress Note Progress Notes/Assess & Plan Date Seen by Provider: Apr 14, 2017 Time Seen by Provider: 10:30 Progress/Assessment & Plan uneventful postoperative night. Vital signs stable. Calcium within normal limits. Slight huskiness of voice, poor appetite.Apprehensive about eating. Would benefit from another day of hospitalization. huskiness of voice resolved. Tolerating diet and could be discharged home. Final Diagnosis multinodular goiter, postoperative status. ARNEL ALANIS MD Apr 14, 2017 11:28 am
[2017-04-14] MEDS ORDERED: LEVOTHYROXINE 100 MCG (LEVOTHROID) TAB ONE (13:42)
[2017-04-14] MEDS ORDERED: LEVOTHYROXINE 100 MCG (LEVOTHROID) TAB PO NR (13:44)
[2017-04-14 15:09] VITALS: BP 144/64
[2017-04-14 16:13] VITALS: BP 144/64
== END 2017-04-14 16:16 | disposition home or self-care (01) ==
LOC: SDC 08:42 → ICU 14:30 → 4TH 19:45 → SDC 04-14 16:16
PROVIDERS: ATTEND Surgery
DX: E04.2 Nontoxic multinodular goiter (principal); E11.9 Type 2 diabetes mellitus without complications; I25.10 Atherosclerotic heart disease of native coronary artery without angina pectoris; I10 Essential (primary) hypertension; E78.5 Hyperlipidemia, unspecified; I73.9 Peripheral vascular disease, unspecified; E66.9 Obesity, unspecified; Z68.34 Body mass index [BMI] 34.0-34.9, adult; Z79.84 Long term (current) use of oral hypoglycemic drugs; Z79.82 Long term (current) use of aspirin; Z79.899 Other long term (current) drug therapy
CPT/HCPCS: 36415; 80048; 82962; 84550; 85025; 85652; 87081

== ENCOUNTER 2017-07-17 11:45 | Outpatient (CLI) | payer MEDICARE ==
[~2017-07-17] VITALS: Ht 156.2 cm; Wt 83.9 kg
[~2017-07-17 11:45] MED LIST changes: +LEVO100T7 PO; +LEVO112T55 PO; -METF500T4 PO; +METF500T5 PO; +TRAM50TA2 PO
[2017-07-22] MEDS ORDERED: NITR100C PO (11:49)
== END 2017-07-17 12:23 ==
LOC: PREOP 11:45
PROVIDERS: ATTEND Surgery
DX: Z01.818 Encounter for other preprocedural examination (principal); K25.9 Gastric ulcer, unspecified as acute or chronic, without hemorrhage or perforation

== ENCOUNTER → 2017-10-09 | Outpatient (CLI) | payer MEDICARE, OTHER ==
[~2017-10-09] MED LIST changes: +NITR100C PO
--- NOTE | 2017-10-09 11:21 | Diagnostic Imaging Report ---
PROCEDURE: MR imaging of the brain without contrast. TECHNIQUE: Multiplanar, multisequence MR imaging of the brain was performed without contrast. INDICATION: Memory loss. COMPARISON: Correlation is made with prior MRI of the brain from 05/19/2013. FINDINGS: No diffusion restriction is identified to suggest acute ischemia. Normal expected flow-voids within the carotid siphons are seen. Periventricular and subcortical white matter changes are again noted, similar to prior exam and most consistent with chronic microvascular ischemia. There is some frontal lobe atrophy bilaterally, similar to prior study. Ventricular size is stable. No midline shift is identified. No acute intra-axial or extra-axial hemorrhage is detected. Corpus callosum is unremarkable. The sella and parasellar structures are unremarkable. IMPRESSION: Stable chronic changes when compared with prior MRI from 05/19/2013. There are changes of chronic microvascular ischemia and frontal lobe atrophy. No acute intracranial process is detected. Dictated by: Dictated on workstation # [id number]
== END ==
LOC: RAD 09:25
PROVIDERS: ATTEND Family Medicine
DX: G31.9 Degenerative disease of nervous system, unspecified (principal); I67.82 Cerebral ischemia
CPT/HCPCS: 70551

== ENCOUNTER → 2017-11-08 | Outpatient (CLI) | payer MEDICARE, OTHER ==
[2017-11-08 17:44] LABS: BASOPHILS # (AUTO) 0.1 10^3/uL (0.0-0.1); BASOPHILS % (AUTO) 1 % (0-10); EOSINOPHILS # (AUTO) 0.2 10^3/uL (0.0-0.3); EOSINOPHILS % (AUTO) 3 % (0-10); HEMATOCRIT 41 % (35-52); HEMOGLOBIN 12.9 G/DL (11.5-16.0); LYMPHOCYTES # (AUTO) 1.1 X 10^3 (1.0-4.0); LYMPHOCYTES % (AUTO) 14 % (12-44); MEAN CORPUSCULAR HEMOGLOBIN 30 PG (25-34); MEAN CORPUSCULAR HGB CONC 32 G/DL (32-36); MEAN CORPUSCULAR VOLUME 93 FL (80-99); MEAN PLATELET VOLUME 9.7 FL (7.4-10.4); MONOCYTES # (AUTO) 0.6 X 10^3 (0.0-1.0); MONOCYTES % (AUTO) 8 % (0-12); NEUTROPHILS # (AUTO) 5.7 X 10^3 (1.8-7.8); NEUTROPHILS % (AUTO) 74 % (42-75); PLATELET COUNT 316 10^3/uL (130-400); RED BLOOD COUNT 4.37 10^6/uL (4.35-5.85); RED CELL DISTRIBUTION WIDTH 14.3 % (10.0-14.5); WHITE BLOOD COUNT 7.7 10^3/uL (4.3-11.0)
[2017-11-08 18:01] LABS: ALBUMIN 4.1 GM/DL (3.2-4.5); BILIRUBIN,TOTAL 0.4 MG/DL (0.1-1.0); CALCIUM 9.9 MG/DL (8.5-10.1); CREATININE SERUM 1.48 MG/DL (0.60-1.30); POTASSIUM 4.3 MMOL/L (3.6-5.0); TOTAL PROTEIN 7.7 GM/DL (6.4-8.2)
--- NOTE | 2017-11-08 18:35 | Diagnostic Imaging Report ---
INDICATION: Fall with right shoulder pain. AP, oblique and transscapular views of the right shoulder are obtained. COMPARISON: Comparison is made to study of 02/27/2017. FINDINGS: There has been increasing marginal spurring about the acromioclavicular and glenohumeral joints however no fracture is identified. There is no evidence of dislocation. No abnormal lytic or sclerotic focus is identified. IMPRESSION: Worsening degenerative change and spurring about the right shoulder girdle without acute osseous abnormality detected. Dictated by: Dictated on workstation # [id number]
== END ==
LOC: LAB 17:16
PROVIDERS: ATTEND Nurse Practitioner Family
DX: E55.9 Vitamin D deficiency, unspecified (principal); R30.0 Dysuria; R53.83 Other fatigue; M25.511 Pain in right shoulder
CPT/HCPCS: 36415; 73030; 80053; 82306; 85025; 87077; 87088; 87186

== ENCOUNTER → 2017-12-14 | Outpatient (CLI) | payer MEDICARE, OTHER ==
[~2017-12-14] MED LIST changes: +METF-397 PO; -METF500T5 PO; -OXYC-197 PO; +OXYC1TAB87 PO
--- NOTE | 2017-12-14 14:26 | Diagnostic Imaging Report ---
PROCEDURE: MRI right joint upper extremity without contrast. TECHNIQUE: Multiplanar, multisequence MR imaging of the right shoulder was performed without contrast. COMPARISON: Right shoulder radiographs of 11/08/2017 INDICATION: Right shoulder pain. FINDINGS: Rotator cuff: There is an oblique tear in the anterior aspect of the supraspinatus which has both a bursal surface component posteriorly and articular surface component anteriorly which therefore would make a full-thickness. However, there is no substantial retraction due to the obliquity of the tear. This area of tearing is associated with a globular focus of mineralization within the tendon indicative of calcific tendinitis. Low-grade partial-thickness interstitial tearing of the infraspinatus. The subscapularis and teres minor remain intact. No muscle atrophy. Glenoid labrum: By non-arthrogram imaging, the glenoid labrum appears intact. No para-labral cyst. Long head of biceps: Long head of biceps is normally positioned within the bicipital groove. The intracapsular segment is intact. Bones and cartilage: Humeral head is normal in morphology without fracture or focal osseous lesion. No glenohumeral chondromalacia. Moderate hypertrophic degenerative change of the acromioclavicular joint. Soft tissues: No glenohumeral joint effusion. No MRI findings to suggest adhesive capsulitis. Small amount of fluid is present in the subacromial and subdeltoid bursa indicative of bursitis. IMPRESSION: 1. Full-thickness tear in the anterior aspect of the supraspinatus without tendon retraction. This is associated with mineralized osseous within the tendon indicative of calcific tendinitis. 2. Low-grade partial-thickness interstitial tear of the infraspinatus. 3. No rotator cuff muscle atrophy. 4. Long head of biceps is intact. Dictated by: Dictated on workstation # [id number]
== END ==
LOC: RAD 08:34
PROVIDERS: ATTEND Orthopaedic Surgery
DX: M75.111 Incomplete rotator cuff tear or rupture of right shoulder, not specified as traumatic (principal)
CPT/HCPCS: 73221

== ENCOUNTER → 2018-01-09 | Outpatient (CLI) | payer MEDICARE, OTHER ==
--- NOTE | 2018-01-09 17:55 | Diagnostic Imaging Report ---
Digital mammogram bilateral screening with 3-D tomosynthesis. This study was compared to the prior exams of 12/11/2016, 10/28/2015, and 10/26/2014. At this time, there are no complaints regarding the breast itself. The patient did fall and has pain along the right chest. The current study was also evaluated with a Computer Aided Detection (CAD) system. FINDINGS: There are scattered fibroglandular densities in both breasts which could obscure a lesion. Overall, there does not appear to have been any significant change when compared to the prior exam. No primary or secondary sign of malignancy is noted. 3D tomographic images fail to show any sign of malignancy. IMPRESSION: There is no radiographic evidence for malignancy. ACR BI-RADS Category 1: Negative. Result letter will be mailed to the patient. Note: At least 10% of breast cancer is not imaged by mammography. Dictated by: Dictated on workstation # [id number]
== END ==
LOC: RAD 13:35
PROVIDERS: ATTEND Obstetrics & Gynecology
DX: Z12.31 Encounter for screening mammogram for malignant neoplasm of breast (principal)
CPT/HCPCS: 77067

== ENCOUNTER → 2018-01-13 | Outpatient (CLI) | payer MEDICARE, OTHER ==
--- NOTE | 2018-01-13 12:13 | Diagnostic Imaging Report ---
PROCEDURE: US Renal Bilateral. TECHNIQUE: Multiple Real-time grayscale images were obtained over the kidneys in various projections bilaterally. INDICATION: Chronic kidney disease, stage III. FINDINGS: The right kidney measures 10.7 x 6.0 x 4.3 cm and the left 10.7 x 6.7 x 5.4 cm. There is a cyst in the lower pole of the left kidney of approximately 4 cm in diameter. No calculus or hydronephrosis is seen. No solid renal mass is detected. There does appear to be some cortical thinning bilaterally. The bladder is mostly decompressed but no significant abnormality is detected. IMPRESSION: Cortical thinning bilaterally with a 4 cm left renal cyst. No other significant abnormality is detected. Dictated by: Dictated on workstation # [id number]
== END ==
LOC: RAD 08:54
PROVIDERS: ATTEND Internal Medicine Nephrology
DX: N18.3 Chronic kidney disease, stage 3 (moderate) (principal); N28.1 Cyst of kidney, acquired
CPT/HCPCS: 76770

== ENCOUNTER → 2018-02-21 | Outpatient (CLI) | payer MEDICARE, OTHER | LOC: LAB 14:01 | PROVIDERS: ATTEND Nurse Practitioner Family | DX: N39.0 Urinary tract infection, site not specified (principal) | CPT/HCPCS: 87077; 87088; 87186 ==

== ENCOUNTER 2018-05-14 11:50 | Outpatient (CLI) | payer MEDICARE, OTHER ==
[~2018-05-14] VITALS: Ht 156.2 cm; Wt 84.4 kg
[2018-05-14 12:00] VITALS: BP 124/67
[2018-05-14] MEDS ORDERED: NITR25CA4 PO (12:23)
[2018-05-14] MEDS ORDERED: LEVO125T6 PO (12:23)
[2018-05-14] MEDS ORDERED: CEFU500T63 PO (12:23)
[2018-05-14] MEDS ORDERED: LOSA50TA63 PO (12:23)
[2018-05-14] MEDS ORDERED: MAGN250T13 PO (12:23)
[2018-05-14] MEDS ORDERED: CHOL100045 PO (12:23)
[2018-05-14] MEDS ORDERED: BACI1TAB3 PO (12:47)
== END 2018-05-14 12:45 | disposition home or self-care (01) ==
LOC: PREOP 11:50
PROVIDERS: ATTEND Orthopaedic Surgery
DX: Z01.818 Encounter for other preprocedural examination (principal)
CPT/HCPCS: 87081

== ENCOUNTER 2018-05-21 09:08 | Day surgery (SDC) | payer MEDICARE, OTHER ==
--- NOTE | 2018-05-12 08:43 | HISTORY AND PHYSICAL ---
DATE OF SERVICE: ADMISSION HISTORY AND PHYSICAL DATE OF ADMISSION: 05/21/2018. This will be for an outpatient surgery admission and date service will be on 05/21/2018 for right rotator cuff repair. HISTORY OF PRESENT ILLNESS: The patient is an 82-year-old right hand dominant female, who complains of right shoulder pain and weakness. She underwent an MRI, which revealed a full thickness rotator cuff tear. She has been treated with home exercise program as well as injections with only temporary relief of her symptoms and due to continued functional disability, the patient has elected to proceed with surgical intervention. REVIEW OF SYSTEMS: No chest pain and no shortness of breath. No dysuria. PAST MEDICAL HISTORY: Back pain, diabetes mellitus, fatigue, reflux, hypertension, osteoarthritis, dysuria, hypothyroidism, anxiety disorder and depression. PAST SURGICAL HISTORY: Carpal tunnel, cataract, knee arthroscopy, total hip arthroplasty, bilateral total knee arthroplasty, tonsillectomy, cholecystectomy, skin cancer excision, herniorrhaphy, hysterectomy and laparoscopic Doug. SOCIAL HISTORY: The patient smokes one pack of cigarettes a week. Denies alcohol use. FAMILY HISTORY: Significant for hyperlipidemia, depression and ischemic heart disease. PRIMARY CARE PROVIDER: Dr. Bhakta. MEDICATIONS: Aspirin, metformin, Celexa, Zetia, hiprex, Lasix, metoprolol, levothyroxine, vitamin D, diazepam, omeprazole, biotin, Percocet, Valium and amlodipine. ALLERGIES: PENICILLIN, CEPHALOSPORINS, IV DYE, GLUCAGON, LOPRESSOR, PRINIVIL, , CARDIZEM, CLINORIL, BIAXIN, CODEINE, MORPHINE, LASIX, LIPITOR, PAXIL, ZOLOFT, DEMEROL TAPE, BENZOCAINE, LATEX AND SHELLFISH. PHYSICAL EXAMINATION: GENERAL: The patient is a well-developed, well-nourished, in no acute distress. HEENT: Normocephalic and atraumatic. Pupils are equal, round and reactive to light. Oropharynx is clear. NECK: Supple. No lymphadenopathy. LUNGS: Clear to auscultation bilaterally. HEART: Regular rate and rhythm. ABDOMEN: Soft, nontender and nondistended. EXTREMITIES: Right shoulder demonstrates active forward elevation of 170 degrees, external rotation of 70 degrees, internal rotation to mid lumbar spine. She has weakness and pain with resisted abduction and external rotation. She has a positive drop arm. IMPRESSION: Right rotator cuff tear. PLAN: Right shoulder arthroscopy with acromioplasty and open rotator cuff repair. The risks, benefits, options, ramifications and recovery have been discussed at length with the patient. She understands and wishes to proceed. Job ID: [id number] DocumentID: [id number] Dictated Date: 05/12/2018 08:09:43 Senior Geotechnical Engineer Date: 05/12/2018 08:42:46 Dictated By: CHANEL COTTO MD
[~2018-05-21] VITALS: Ht 156.2 cm; Wt 84.4 kg
[~2018-05-21 09:08] MED LIST changes: +BACI1TAB3 PO; +CEFU500T63 PO; +CHOL100045 PO; +LEVO125T6 PO; +LOSA50TA63 PO; +MAGN250T13 PO; +NITR25CA4 PO
[2018-05-21] MEDS ORDERED: BUPIVACAINE 0.25% 30 ML (SENSORCAINE) VIAL ONE (09:13)
[2018-05-21] MEDS ORDERED: CLINDAMYCIN 600 MG/50 ML IVPB 50 ML IV ONE ×2 (09:27→09:45)
[2018-05-21] MEDS ORDERED: FAMOTIDINE 20MG/2ML IV (PEPCID) ONE (09:27)
[2018-05-21 09:30] VITALS: BP 170/58
[2018-05-21] MEDS ORDERED: oxyCODONE/APAP 5/325MG (PERCOCET 5) TABLET PO PRN (09:30)
[2018-05-21] MEDS ORDERED: FAMOTIDINE 20MG/2ML IV (PEPCID) IV ONE (09:30)
[2018-05-21] MEDS ORDERED: LACTATED RINGERS 1,000 ML IV PRN (09:37)
[2018-05-21] MEDS ORDERED: ROPIVACAINE 5MG/ML 30ML VIAL ONE (09:43)
[2018-05-21] MEDS ORDERED: fentaNYL INJECTION 100 MCG/2 ML AMP ONE (09:43)
[2018-05-21] MEDS ORDERED: MIDAZOLAM 2 MG/2 ML (VERSED) VIAL ONE (09:43)
--- NOTE | 2018-05-21 10:40 | Progress Note-Pre Operative ---
Pre-Operative Progress Note H&P Reviewed The H&P was reviewed, patient examined and no changes noted. Date Seen by Provider: May 21, 2018 Time Seen by Provider: 10:39 Date H&P Reviewed: May 21, 2018 Time H&P Reviewed: 10:39 Pre-Operative Diagnosis: right SLAP and rotator cuff tears CHANEL COTTO MD May 21, 2018 10:40
--- NOTE | 2018-05-21 10:41 | Progress Note-Post Operative ---
Post-Operative Progess Note Surgeon (s)/Musical Engineer (s) Surgeon CHANEL COTTO MD Musical Engineer: Tyson Louis Pre-Operative Diagnosis right SLAP and rotator cuff tears Post-Operative Diagnosis right rotator cuff tear Procedure & Operative Findings Date of Procedure 05/21/18 Procedure Performed/Findings right shoulder arthroscopic acromioplasty and open rotator cuff repair Anesthesia Type GETA plus interscalene Estimated Blood Loss Estimated blood loss (mL): minimal Specimens/Packing Specimens Removed none Packing: none CHANEL COTTO MD May 21, 2018 10:41
[2018-05-21] MEDS ORDERED: LIDOCAINE PF 2% 5 ML (XYLOCAINE) VIAL ONE (11:17)
[2018-05-21] MEDS ORDERED: ONDANSETRON 4 MG/2 ML (SDV) Z0FRAN ONE (11:17)
[2018-05-21] MEDS ORDERED: proPOfol 200 MG/20 ML (DIPRIVAN) VIAL IV ONE (11:17)
[2018-05-21] MEDS ORDERED: SEVOFLURANE (ULTANE) 15 ML INHAL SOLN ONE ×5 (11:17→11:56)
[2018-05-21] MEDS ORDERED: ROCURONIUM 10 MG/ML 5 ML SYRINGE IV ONE (11:17)
[2018-05-21] MEDS ORDERED: DEXAMETHASONE 10 MG/ML (DECADRON) 1 ML VIAL ONE (11:17)
[2018-05-21] MEDS ORDERED: GLYCOPYRROLATE 0.2 MG/ML (ROBINUL) 2 ML VIAL ONE ×2 (11:19→11:26)
[2018-05-21] MEDS ORDERED: NEOSTIGMINE 1 MG/ML 5 ML SYRINGE ONE ×2 (11:26)
[2018-05-21] MEDS ORDERED: ONDANSETRON 4 MG/2 ML (SDV) Z0FRAN IVP PRN (12:00)
[2018-05-21] MEDS ORDERED: fentaNYL INJECTION 100 MCG/2 ML AMP IVP ONE (12:00)
[2018-05-21] MEDS ORDERED: OXYC-471 PO (12:27)
[2018-05-21 12:45] VITALS: BP 145/63
[2018-05-21 13:15] VITALS: BP 152/66
[2018-05-21 13:45] VITALS: BP 146/65
[2018-05-21 13:55] VITALS: BP 146/65
--- NOTE | 2018-05-21 14:54 | OPERATIVE REPORT ---
DATE OF SERVICE: 05/21/2018 PREOPERATIVE DIAGNOSIS: Right rotator cuff tear. POSTOPERATIVE DIAGNOSIS: Right rotator cuff tear. PROCEDURES: 1. Right shoulder arthroscopic acromioplasty. 2. Right shoulder open rotator cuff repair. SURGEON: Tacos Cotto MD. SENIOR CORE JAVA DEVELOPER: Tyson Louis, who assisted throughout the procedure and aided with positioning and retraction and closed the incisions. ANESTHESIA: General endotracheal plus interscalene nerve block. ESTIMATED BLOOD LOSS: Minimal. DRAINS: None. COMPLICATIONS: None. POSTOPERATIVE PLAN: Sling and passive range of motion for 4 weeks. The patient was transferred to the recovery room awake and stable condition. STATEMENT OF MEDICAL NECESSITY: The patient is an 82-year-old right hand dominant female with right shoulder pain and weakness. An MRI revealed a small full-thickness supraspinatus tear. She was treated with home exercise program as well as injections, but had continued functional instability and because of this, we elected to proceed with surgical intervention. Examination under anesthesia revealed forward elevation of 170 degrees, external rotation of 90 degrees and internal rotation of 70 degrees. ARTHROSCOPIC FINDINGS: The biceps anchor was intact. There was no labral pathology noted. No significant glenoid or humeral head articular wear. The supraspinatus demonstrated a 1 x 1 cm full thickness tear with no significant retraction. The subacromial space demonstrated moderate bursitis with sloping of the anterior and lateral acromion. PROCEDURE: After risks and benefits of the procedure were discussed and questions were answered, an informed consent was signed and placed on chart, the operative site was confirmed and prepped and initialed by the surgeon. The patient was transferred to the operating room and after adequate levels of regional plus general endotracheal anesthetic were obtained, a timeout was called confirming the operative site. The right shoulder and upper extremity prepped and draped in the usual sterile fashion. Shoulder was injected with 20 mL of fluid and a standard posterior portal was placed. A diagnostic arthroscopy was carefully carried out with the above findings noted. A spinal needle was inserted in the interval between the biceps, subscapularis and the glenoid and the labrum was carefully probed. The scope was then redirected into the subacromial space and a lateral portal was created. A bursectomy was performed and the acromion was planed to a flat type 1 acromion. The lateral portal was then extended. The deltoid was split in line with its fibers leaving it attached to the acromion for later reapproximation. The rotator cuff edge was freshened sharply and a single corkscrew anchor was placed. A modified Cj - Rodney repair was obtained with excellent repair obtained. No undue tension was noted with the arm at the side. The wound was copiously irrigated. The deltoid was repaired in a [id number] fashion using a #2 FiberWire. The wound was further irrigated. A 2-0 Vicryl was used to reapproximate the subcutaneous tissue and the skin was closed with 4-0 nylon running alternating horizontal mattress fashion. The portal sites were closed with 4-0 nylon in a simple interrupted fashion. The portal sites were infiltrated with plain Marcaine. A soft dressing was applied and sling and the patient was transported to the recovery room awake and in stable condition. Job ID: [id number] DocumentID: [id number] Dictated Date: 05/21/2018 11:39:54 Line Out Man Date: 05/21/2018 14:53:42 Dictated By: TACOS COTTO MD
== END 2018-05-21 14:05 | disposition home or self-care (01) ==
LOC: SDC 09:08
PROVIDERS: ATTEND Orthopaedic Surgery
DX: M75.101 Unspecified rotator cuff tear or rupture of right shoulder, not specified as traumatic (principal); E11.9 Type 2 diabetes mellitus without complications; K21.9 Gastro-esophageal reflux disease without esophagitis; I10 Essential (primary) hypertension; M19.91 Primary osteoarthritis, unspecified site; E03.9 Hypothyroidism, unspecified; F41.9 Anxiety disorder, unspecified; F32.9 Major depressive disorder, single episode, unspecified; F17.210 Nicotine dependence, cigarettes, uncomplicated; Z79.82 Long term (current) use of aspirin; Z79.4 Long term (current) use of insulin; Z79.899 Other long term (current) drug therapy; Z88.0 Allergy status to penicillin; Z88.1 Allergy status to other antibiotic agents; Z88.8 Allergy status to other drugs, medicaments and biological substances; F43.10 Post-traumatic stress disorder, unspecified; M06.9 Rheumatoid arthritis, unspecified; Z96.653 Presence of artificial knee joint, bilateral; Z96.643 Presence of artificial hip joint, bilateral
CPT/HCPCS: 82962

== ENCOUNTER → 2018-07-11 | Outpatient (CLI) | payer MEDICARE, OTHER ==
[~2018-07-11] MED LIST changes: +OXYC-471 PO
== END ==
LOC: CARD 09:02
PROVIDERS: ATTEND Internal Medicine Cardiovascular Disease
DX: R07.9 Chest pain, unspecified (principal); R47.81 Slurred speech; I77.9 Disorder of arteries and arterioles, unspecified; I25.10 Atherosclerotic heart disease of native coronary artery without angina pectoris; I10 Essential (primary) hypertension; I73.9 Peripheral vascular disease, unspecified; E78.5 Hyperlipidemia, unspecified
CPT/HCPCS: 93225; 93226

== ENCOUNTER 2018-08-19 12:50 | Outpatient (RCR) | payer MEDICARE, OTHER | END 2018-08-21 | disposition home or self-care (01) | PROVIDERS: ATTEND Orthopaedic Surgery | DX: Z47.89 Encounter for other orthopedic aftercare (principal); M25.511 Pain in right shoulder; I10 Essential (primary) hypertension; E11.9 Type 2 diabetes mellitus without complications; M06.9 Rheumatoid arthritis, unspecified; F32.9 Major depressive disorder, single episode, unspecified; M81.0 Age-related osteoporosis without current pathological fracture ==

== ENCOUNTER 2018-09-12 18:15 | Emergency (ER) | payer MEDICARE, OTHER ==
[~2018-09-12] VITALS: Ht 160 cm; Wt 83.9 kg
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
--- NOTE | 2018-09-12 18:54 | NUR ---
pt informed of anticipated wait times for labs/radiology
[2018-09-12] MEDS ORDERED: NS IV 1000 ML 1,000 ML IV ONE (18:55)
[2018-09-12] MEDS ORDERED: ONDANSETRON 4 MG/2 ML (SDV) Z0FRAN IVP ONE (19:00)
[2018-09-12 19:07] LABS: BILIRUBIN,URINE NEGATIVE (NEGATIVE); COLOR,URINE YELLOW; GLUCOSE, URINE (UA) NEGATIVE (NEGATIVE); KETONES,URINE NEGATIVE (NEGATIVE); LEUKOCYTE ESTERASE ,URINE 3+ (NEGATIVE); NITRITE,URINE POSITIVE (NEGATIVE); PH,URINE 5 (5-9); PROTEIN,URINE 1+ (NEGATIVE); UROBILINOGEN,URINE NORMAL (NORMAL)
[2018-09-12 19:09] LABS: BASOPHILS % (AUTO) 1 % (0-10); EOSINOPHILS # (AUTO) 0.3 10^3/uL (0.0-0.3); EOSINOPHILS % (AUTO) 3 % (0-10); HEMATOCRIT 38 % (35-52); HEMOGLOBIN 11.8 G/DL (11.5-16.0); LYMPHOCYTES # (AUTO) 1.3 X 10^3 (1.0-4.0); LYMPHOCYTES % (AUTO) 16 % (12-44); MEAN CORPUSCULAR HEMOGLOBIN 30 PG (25-34); MEAN CORPUSCULAR HGB CONC 31 G/DL (32-36); MEAN CORPUSCULAR VOLUME 96 FL (80-99); MEAN PLATELET VOLUME 9.9 FL (7.4-10.4); MONOCYTES # (AUTO) 0.6 X 10^3 (0.0-1.0); MONOCYTES % (AUTO) 8 % (0-12); NEUTROPHILS # (AUTO) 5.5 X 10^3 (1.8-7.8); NEUTROPHILS % (AUTO) 72 % (42-75); PLATELET COUNT 292 10^3/uL (130-400); RED CELL DISTRIBUTION WIDTH 14.4 % (10.0-14.5); WHITE BLOOD COUNT 7.7 10^3/uL (4.3-11.0)
[2018-09-12 19:18] LABS: CLARITY,URINE CLOUDY
[2018-09-12 19:19] LABS: BACTERIA,URINE LARGE /HPF; WBC,URINE 50-100 /HPF
[2018-09-12 19:24] LABS: CALCIUM 9.1 MG/DL (8.5-10.1); CREATININE SERUM 1.2 MG/DL (0.60-1.30); MAGNESIUM 1.3 MG/DL (1.8-2.4); POTASSIUM 4.1 MMOL/L (3.6-5.0)
[2018-09-12 19:25] LABS: ALBUMIN 3.8 GM/DL (3.2-4.5); BILIRUBIN,TOTAL 0.3 MG/DL (0.1-1.0); TOTAL PROTEIN 6.9 GM/DL (6.4-8.2)
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
[2018-09-12] MEDS ORDERED: NITR-65 PO (19:49)
[2018-09-12] MEDS ORDERED: ONDA4TAB11 PO (19:49)
[2018-09-12 19:58] VITALS: BP 148/64
[2018-09-12] MEDS ORDERED: MAGNESIUM OXIDE (MAG-OX)400 MG TAB PO ONE (20:00)
== END 2018-09-12 20:00 | disposition home or self-care (01) ==
LOC: EDUNIT# 18:15 → ER 18:17
DX: K52.9 Noninfective gastroenteritis and colitis, unspecified (principal); N39.0 Urinary tract infection, site not specified; E83.42 Hypomagnesemia; I10 Essential (primary) hypertension; G43.909 Migraine, unspecified, not intractable, without status migrainosus; K21.9 Gastro-esophageal reflux disease without esophagitis; E03.9 Hypothyroidism, unspecified; E11.9 Type 2 diabetes mellitus without complications; F41.9 Anxiety disorder, unspecified; F32.9 Major depressive disorder, single episode, unspecified; F43.10 Post-traumatic stress disorder, unspecified; Z87.19 Personal history of other diseases of the digestive system; Z87.440 Personal history of urinary (tract) infections; Z88.0 Allergy status to penicillin; Z88.2 Allergy status to sulfonamides; Z82.49 Family history of ischemic heart disease and other diseases of the circulatory system; Z88.5 Allergy status to narcotic agent; Z88.6 Allergy status to analgesic agent; Z88.1 Allergy status to other antibiotic agents; Z91.048 Other nonmedicinal substance allergy status; Z91.041 Radiographic dye allergy status; Z79.82 Long term (current) use of aspirin; Z79.84 Long term (current) use of oral hypoglycemic drugs; Z87.891 Personal history of nicotine dependence; Z96.653 Presence of artificial knee joint, bilateral; Z96.643 Presence of artificial hip joint, bilateral; Z85.828 Personal history of other malignant neoplasm of skin; Z98.890 Other specified postprocedural states; Z90.710 Acquired absence of both cervix and uterus; Z90.89 Acquired absence of other organs
CPT/HCPCS: 36415; 71046; 71250; 74176; 80053; 81000; 82150; 83690; 83735; 85025; 87077; 87088; 87186

== ENCOUNTER 2018-10-17 15:00 | Inpatient (IN) | payer MEDICARE, OTHER ==
[~2018-10-17] VITALS: Ht 160 cm; Wt 84.1 kg
[~2018-10-17 15:00] MED LIST changes: +ONDA4TAB11 PO
[2018-10-17 15:38] LABS: BILIRUBIN,URINE NEGATIVE (NEGATIVE); CLARITY,URINE SLIGHTLY CLOUDY; COLOR,URINE YELLOW; GLUCOSE, URINE (UA) NEGATIVE (NEGATIVE); KETONES,URINE NEGATIVE (NEGATIVE); LEUKOCYTE ESTERASE ,URINE 3+ (NEGATIVE); NITRITE,URINE POSITIVE (NEGATIVE); PH,URINE 5 (5-9); PROTEIN,URINE 2+ (NEGATIVE); UROBILINOGEN,URINE NORMAL (NORMAL)
--- NOTE | 2018-10-17 15:45 | ED GU-Female ---
General Chief Complaint: - Urinary Stated Complaint: DX WITH UTI/TOLD TO COME TO ER Nursing Triage Note: Pt sent to ED by Dr. Bhakta. Pt has an antibiotic resistant UTI. Pt c/o nausea, headache, and bilateral kidney pain. Pt reports symptoms began approximately one month ago. Pt reports taking cipro for 13 days. Nursing Sepsis Screen: No Definite Risk Source: patient Exam Limitations: no limitations History of Present Illness Date Seen by Provider: Oct 17, 2018 Time Seen by Provider: 15:42 Initial Comments To ER by private vehicle with reports of UTI. Patient was diagnosed with UTI, culture results done by [facility] on 10/14/18 shows Escherichia coli ESBL positive greater than 100,000 colonies per milliliter. She's been on Cipro for 2 weeks without improvement. Sensitivities showed ertapenem only. She was referred to the hospital to be admitted for IV antibiotics. She follows with Dr. Jasen Johnson from [facility] for renal disease, she is not on dialysis. She does report some flank pain bilaterally, headache, nausea. She also reports about one week of slurred speech off and on and headache. Timing/Duration: constant Severity/Quality: moderate Location: suprapubic Radiation: generalized flank Activities at Onset: none Prior Genitourinary Problems: none Associated Symptoms: dysuria Allergies and Home Medications Allergies Coded Allergies: sertraline (Verified Allergy, Severe, CANNOT BREATHE, 03/14/17) Cephalosporins (Unverified Allergy, Mild, 03/14/17) Iodinated Contrast- Oral and IV Dye (Unverified Allergy, Mild, 03/14/17) Penicillins (Unverified Allergy, Mild, 03/14/17) Shellfish (Unverified Allergy, Mild, 03/14/17) atorvastatin (Unverified Allergy, Mild, 03/14/17) clarithromycin (Unverified Allergy, Mild, 03/14/17) codeine (Unverified Allergy, Mild, PT HAS RECEIVED HYDROMORPHONE IN THE PAST, 03/14/17) diltiazem (Unverified Allergy, Mild, 03/14/17) glucagon (Unverified Allergy, Mild, 03/14/17) lisinopril (Unverified Allergy, Mild, 03/14/17) morphine (Unverified Allergy, Mild, PT HAS RECEIVED HYDROMORPHONE IN THE PAST, 03/14/17) nifedipine (Unverified Allergy, Mild, 03/14/17) paroxetine (Unverified Allergy, Mild, 03/14/17) sulfamethoxazole (Unverified Allergy, Mild, 03/14/17) acetaminophen (Verified Allergy, Unknown, 03/14/17) benzocaine (Verified Allergy, Unknown, methemoglobinemia, 05/14/18) furosemide (Unverified Allergy, Unknown, 03/14/17) latex (Verified Allergy, Unknown, 03/14/17) meperidine (Verified Allergy, Unknown, PATIENT HAS RECEIVED FENTANYL IN THE PAST, 03/14/17) propoxyphene (Verified Allergy, Unknown, 03/14/17) sulindac (Verified Allergy, Unknown, 03/14/17) tramadol (Verified Allergy, Unknown, 04/12/17) Uncoded Allergies: TAPE (Allergy, Unknown, CAN USE PAPER TAPE, 12/08/08) Home Medications Aspirin 81 Mg Tab.chew, 81 MG PO DAILY, (Reported) Bacillus Coagulans 1 Each Tab.chew, 1 EACH PO DAILY, (Reported) Cholecalciferol (Vitamin D3) 1,000 Unit Tablet, 1,000 UNIT PO DAILY, (Reported) Citalopram Hydrobromide 40 Mg Tablet, 20 MG PO BID, (Reported) TAKE 1/2 OF 40MG TAB Ezetimibe 10 Mg Tablet, 10 MG PO DAILY, (Reported) Fenofibrate Nanocrystallized 145 Mg Tablet, 145 MG PO DAILY, (Reported) Levothyroxine Sodium 125 Mcg Tablet, 125 MCG PO DAILY, (Reported) Magnesium Oxide 250 Mg Tablet, 250 MG PO BID, (Reported) Metformin HCl 500 Mg Tablet, 500 MG PO BID, (Reported) Metoprolol Tartrate 25 Mg Tablet, 37.5 MG PO BID, (Reported) take 1 1/2 of 25mg tab Nitrofurantoin Monohyd/M-Cryst 100 Mg Capsule, 100 MG PO BID Prescribed by: ROSA FLORES on 09/12/181948 Omeprazole 20 Mg Capsule.dr, 20 MG PO DAILY, (Reported) Ondansetron 4 Mg Tab.rapdis, 4 MG PO Q4H Prescribed by: ROSA FLORES on 09/12/181948 Oxycodone HCl/Acetaminophen 1 Each Tablet, 1 EACH PO Q4H PRN for PAIN-MODERATE Prescribed by: FAYE WILLIAM on 05/21/18 1227 Triamterene/Hydrochlorothiazid 1 Each Capsule, 1 EACH PO DAILY, (Reported) Patient Home Medication List Home Medication List Reviewed: Yes Review of Systems Review of Systems Constitutional: see HPI; No chills, No fever EENTM: see HPI Respiratory: no symptoms reported; No cough, No dyspnea on exertion Cardiovascular: no symptoms reported Genitourinary: no symptoms reported Musculoskeletal: no symptoms reported Skin: no symptoms reported Psychiatric/Neurological: No Symptoms Reported Endocrine: No Symptoms Reported Hematologic/Lymphatic: No Symptoms Reported Past [id number] Hx Patient Social History Alcohol Use: Past History Recreational Drug Use: No Smoking Status: Former Smoker Type Used: Cigarettes Former Smoker, Quit: Jan 30, 1966 2nd Hand Smoke Exposure: No Recent Foreign Travel: No Contact w/Someone Who Travel: No Recent Infectious Disease Expo: No Recent Hopitalizations: No Immunizations Up To Date Tetanus Booster (TDap): More than 5yrs PED Vaccines UTD: No Date of Pneumonia Vaccine: Jan 22, 2009 Date of Influenza Vaccine: Jan 31, 2018 Seasonal Allergies Seasonal Allergies: Yes Past Medical History Surgeries: Yes Bladder Surgery, Gallbladder, Hysterectomy, Joint Replacement, Oophorectomy, Orthopedic, Thyroidectomy, Tonsillectomy Respiratory: No Currently Using CPAP: No Currently Using BIPAP: No Cardiac: Yes ("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) Heart Murmur, Hypertension, Valvular Heart Disease Neurological: Yes Concussion, Headaches /Migraines 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 Disorders: No Female 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 Disorders: Denies 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, 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 Sexually Transmitted Disease: No HIV/AIDS: No Genitourinary: Yes UTI-Chronic Gastrointestinal: Yes Gastroesophageal Reflux, Diverticulosis, Hiatal Hernia, Ulcer Musculoskeletal: Yes Arthritis, Chronic Back Pain Endocrine: Yes (THYROID NODULES-S/P THYROIDECTOMY) Hypothyroidsim, Diabetes, Non-Insulin dep HEENT: No Loss of Vision: Bilateral Hearing Impairment: Denies Cancer: Yes Skin Did You Recieve Any Treatments: Yes What Type of Treatment Did You: Surgical Intervention Psychosocial: Yes Anxiety, PTSD, Depression Integumentary: Yes (SKIN CANCERS) Blood Disorders: No Adverse Reaction/Blood Tranf: No Family Medical History Arthritis G8 BROTHER G8 SISTER Cardiovascular disease 19 MOTHER Completed stroke G8 BROTHER G8 SISTER Congenital disease Dementia G8 SISTER Diabetes mellitus G8 BROTHER Hypertension 19 FATHER 19 MOTHER G8 BROTHER G8 SISTER Respiratory disorder G8 SISTER Heart Disease, Cancer, Diabetes Physical Exam Vital Signs Vital Signs - First Documented 10/17/18 15:18 Temp 97.5 Pulse 67 Resp 14 B/P (MAP) 174/78 (110) Pulse Ox 98 O2 Delivery Room Air Capillary Refill : Less Than 3 Seconds Height, Weight, BMI Height: 5'3.00" Weight: 182lbs. 0.0oz. 82.148019we; 34.6 BMI Method:Stated General Appearance: WD/WN, no apparent distress HEENT: PERRL/EOMI, normal ENT inspection Neck: non-tender, full range of motion Respiratory: no respiratory distress, no accessory muscle use Gastrointestinal: normal bowel sounds, non tender, soft Back: CVA tenderness (R), CVA tenderness (L) Extremities: normal range of motion, non-tender Neurologic/Psychiatric: alert, normal mood/affect, oriented x 3, other (by a history of slurred speech per her own account, there is none currently. She moves all extremities) Skin: normal color, warm/dry Focused Exam Lactate Level 10/17/18 16:11: Lactic Acid Level 1.66 Lactic Acid Level Laboratory Tests Test 10/17/18 16:11 Lactic Acid Level 1.66 MMOL/L (0.50-2.00) Progress/Results/Core Measures Suspected Sepsis Recent Fever Within 48 Hours: No Infection Criteria Present: None New/Unexplained Altered Menta: No Sepsis Screen: No Definite Risk SIRS Temperature:97.5 Pulse: 67 Respiratory Rate: 14 Laboratory Tests 10/17/18 15:57: White Blood Count 8.2 Blood Pressure 174 /78 Mean: 110 10/17/18 16:11: Lactic Acid Level 1.66 Laboratory Tests 10/17/18 15:57: Creatinine 1.72H, Platelet Count 330, Total Bilirubin 0.4 Results/Orders Lab Results Laboratory Tests Test 10/17/18 15:20 10/17/18 15:57 10/17/18 16:11 Range/Units Urine Color YELLOW Urine Clarity SLIGHTLY CLOUDY Urine pH 5 5-9 Urine Specific [place] 1.020 1.016-1.022 Urine Protein 2+ H NEGATIVE Urine Glucose (UA) NEGATIVE NEGATIVE Urine Ketones NEGATIVE NEGATIVE Urine Nitrite POSITIVE H NEGATIVE Urine Bilirubin NEGATIVE NEGATIVE Urine Urobilinogen NORMAL NORMAL MG/DL Urine Leukocyte Esterase 3+ H NEGATIVE Urine RBC (Auto) NEGATIVE NEGATIVE Urine RBC NONE /HPF Urine WBC 50-100 H /HPF Urine Squamous Epithelial Cells 10-25 H /HPF Urine Crystals NONE /LPF Urine Bacteria LARGE H /HPF Urine Casts NONE /LPF Urine Mucus NEGATIVE /LPF Urine Culture Indicated YES White Blood Count 8.2 4.3-11.0 10^3/uL Red Blood Count 4.46 4.35-5.85 10^6/uL Hemoglobin 12.9 11.5-16.0 G/DL Hematocrit 41 35-52 % Mean Corpuscular Volume 93 80-99 FL Mean Corpuscular Hemoglobin 29 25-34 PG Mean Corpuscular Hemoglobin Concent 31 L 32-36 G/DL Red Cell Distribution Width 14.7 H 10.0-14.5 % Platelet Count 330 130-400 10^3/uL Mean Platelet Volume 9.6 7.4-10.4 FL Neutrophils (%) (Auto) 80 H 42-75 % Lymphocytes (%) (Auto) 8 L 12-44 % Monocytes (%) (Auto) 8 0-12 % Eosinophils (%) (Auto) 4 0-10 % Basophils (%) (Auto) 1 0-10 % Neutrophils # (Auto) 6.6 1.8-7.8 X 10^3 Lymphocytes # (Auto) 0.7 L 1.0-4.0 X 10^3 Monocytes # (Auto) 0.7 0.0-1.0 X 10^3 Eosinophils # (Auto) 0.3 0.0-0.3 10^3/uL Basophils # (Auto) 0.0 0.0-0.1 10^3/uL Sodium Level 140 135-145 MMOL/L Potassium Level 3.8 3.6-5.0 MMOL/L Chloride Level 106 98-107 MMOL/L Carbon Dioxide Level 24 21-32 MMOL/L Anion Gap 10 5-14 MMOL/L Blood Urea Nitrogen 34 H 7-18 MG/DL Creatinine 1.72 H 0.60-1.30 MG/DL Estimat Glomerular Filtration Rate 29 BUN/Creatinine Ratio 20 Glucose Level 125 H 70-105 MG/DL Calcium Level 9.5 8.5-10.1 MG/DL Corrected Calcium 9.4 8.5-10.1 MG/DL Total Bilirubin 0.4 0.1-1.0 MG/DL Aspartate Amino Transf (AST/SGOT) 22 5-34 U/L Alanine Aminotransferase (ALT/SGPT) 14 0-55 U/L Alkaline Phosphatase 51 40-136 U/L Total Protein 7.7 6.4-8.2 GM/DL Albumin 4.1 3.2-4.5 GM/DL Lactic Acid Level 1.66 0.50-2.00 MMOL/L My Orders Orders - SHAQUILLE NORRIS CLEANING ATTENDANT Cbc With Automated Diff (10/17/18 15:08) Comprehensive Metabolic Panel (10/17/18 15:08) Ua Culture If Indicated (10/17/18 15:08) Ed Iv/Invasive Line Start (10/17/18 15:08) Blood Culture (10/17/18 15:08) Lactic Acid Analyzer (10/17/18 15:08) Urine Culture (10/17/18 15:20) Ct Head Wo (10/17/18 15:49) Ertapenem (Non-Formulary) (Invanz (Non-F (10/17/18 16:00) Medications Given in ED Current Medications Medications Dose Ordered Sig/Gilberto Route Start Time Stop Time Status Last Admin Dose Admin Ertapenem 1000 mg/ Sodium Chloride 50 ml @ 100 mls/hr ONCE ONCE IV 10/17/18 16:00 10/17/18 16:29 DC 10/17/18 16:48 100 MLS/HR Vital Signs/I&O 10/17/18 15:18 Temp 97.5 Pulse 67 Resp 14 B/P (MAP) 174/78 (110) Pulse Ox 98 O2 Delivery Room Air Capillary Refill : Less Than 3 Seconds Blood Pressure Mean: 110 Departure Communication (Admissions) Time/Spoke to Admitting Phy: 16:[address] Campos, we will admit the patient on ertapenem. Impression Primary Impression: Drug (multiple) resistant infection Additional Impression: UTI (urinary tract infection) Qualified Codes: N30.00 - Acute cystitis without hematuria Disposition: ADMITTED INPATIENT Condition: Stable Admissions Decision to Admit Reason: Admit from ER (General) Decision to Admit/Date: Oct 17, 2018 Time/Decision to Admit Time: 16:36 Departure-Patient Inst. Referrals: HIRAL BHAKTA MD (PCP/Family) Primary Care Physician SHAQUILLE NORRIS APRN Oct 17, 2018 15:45
[2018-10-17 15:46] LABS: BACTERIA,URINE LARGE /HPF; WBC,URINE 50-100 /HPF
[2018-10-17] MEDS ORDERED: ERTAPENEM (NON-FORMULARY) 1,000 MG in NS (IVPB) 50 ML IV ONE (16:00)
[2018-10-17 16:03] LABS: BASOPHILS % (AUTO) 1 % (0-10); EOSINOPHILS # (AUTO) 0.3 10^3/uL (0.0-0.3); EOSINOPHILS % (AUTO) 4 % (0-10); HEMATOCRIT 41 % (35-52); HEMOGLOBIN 12.9 G/DL (11.5-16.0); LYMPHOCYTES # (AUTO) 0.7 X 10^3 (1.0-4.0); LYMPHOCYTES % (AUTO) 8 % (12-44); MEAN CORPUSCULAR HEMOGLOBIN 29 PG (25-34); MEAN CORPUSCULAR HGB CONC 31 G/DL (32-36); MEAN CORPUSCULAR VOLUME 93 FL (80-99); MEAN PLATELET VOLUME 9.6 FL (7.4-10.4); MONOCYTES # (AUTO) 0.7 X 10^3 (0.0-1.0); MONOCYTES % (AUTO) 8 % (0-12); NEUTROPHILS # (AUTO) 6.6 X 10^3 (1.8-7.8); NEUTROPHILS % (AUTO) 80 % (42-75); PLATELET COUNT 330 10^3/uL (130-400); RED CELL DISTRIBUTION WIDTH 14.7 % (10.0-14.5); WHITE BLOOD COUNT 8.2 10^3/uL (4.3-11.0)
[2018-10-17 16:25] LABS: ALBUMIN 4.1 GM/DL (3.2-4.5); BILIRUBIN,TOTAL 0.4 MG/DL (0.1-1.0); CALCIUM 9.5 MG/DL (8.5-10.1); CREATININE SERUM 1.72 MG/DL (0.60-1.30); POTASSIUM 3.8 MMOL/L (3.6-5.0); TOTAL PROTEIN 7.7 GM/DL (6.4-8.2)
--- NOTE | 2018-10-17 16:50 | Diagnostic Imaging Report ---
PROCEDURE: CT head without contrast. TECHNIQUE: Multiple contiguous axial images were obtained through the brain without the use of intravenous contrast. Auto Exposure Controls were utilized during the CT exam to meet ALARA standards for radiation dose reduction. INDICATION: Headaches. COMPARISON: None. FINDINGS: No intracranial hemorrhage, mass effect, hydrocephalus, or extra-axial fluid collections. No CT evidence of a territorial infarction. The paranasal sinuses and mastoids are clear. Osseous structures are intact. IMPRESSION: No acute intracranial CT findings. Dictated by: Dictated on workstation # [id number]
--- NOTE | 2018-10-17 17:18 | NUR ---
REPORT GIVEN TO HAYLEY ON 4TH FLOOR
--- NOTE | 2018-10-17 17:25 | NUR ---
JOHN AHN admitted to room 407-1, with an admitting diagnosis of UTI, on 10/17/18 from ER via WHEELCHAIR, accompanied by STAFF AND DAUGHTER.JOHN AHN introduced to surroundings, call light, bed controls, phone, TV, temperature control, lights, meal times, smoking policy, visitor policy, side rail policy, bathrooms and showers. Patient Rights given to patient in the handbook. JOHN AHN verbalizes understanding that [facility] is not responsible for the loss or damage to any personal effects or valuables that are kept in the patients posession during their hospitalization. JOHN AHN verbalizes understanding of Interdisciplinary Patient Education. Patient and/or family were informed about the Rapid Response Team and its purpose.
[2018-10-17 17:32] VITALS: BP 183/79
[2018-10-17] MEDS ORDERED: HYDR100T27 PO (18:10)
[2018-10-17] MEDS ORDERED: KETO15CR2 TP (18:10)
[2018-10-17] MEDS ORDERED: MEMA5TAB16 PO (18:10)
[2018-10-17] MEDS ORDERED: GLIP5TAB13 PO (18:10)
[2018-10-17] MEDS ORDERED: DIAZ5TAB3 PO (18:10)
[2018-10-17] MEDS ORDERED: ONDANSETRON 4 MG/2 ML (SDV) Z0FRAN IV PRN (18:45)
[2018-10-17] MEDS: LACTATED RINGERS 1,000 ML IV SCH (18:55)
[2018-10-17] MEDS ORDERED: CATHETER FLUSH 10 ML SYR IV PRN (19:00)
[2018-10-17 20:30] VITALS: BP 138/64
[2018-10-17] MEDS ORDERED: ONDANSETRON 4 MG (ZOFRAN) ORAL DISSOLVE TAB PO SCH (20:30)
[2018-10-17] MEDS ORDERED: oxyCODONE/APAP 5/325MG (PERCOCET 5) TABLET PO PRN (20:30)
--- OUTSIDE RECORDS SUMMARY | 2018-10-17 21:07 | XMS REPORT | Continuity of Care Document ---
Author Organization Unknown Address Unknown Allergies Active Description Code Type Severity Reaction Onset Reported/Identified Relationship to Patient Clinical Status Yes codeine [id number] Drug Allergy Mild N/A 12/03/2008 Yes Iodinated Contrast Media - IV Dye [id number] Drug Allergy Mild N/A 12/03/2008 Yes Iodinated Contrast Media - Oral and [id number] Drug Allergy Mild N/A 12/03/2008 Yes morphine [id number] Drug Allergy Mild N/A 12/03/2008 Yes LIPATOR LIPATOR Unknown N/A 12/08/2008 Yes meperidine [id number] Drug Allergy Unknown N/A 12/08/2008 Yes TAPE TAPE Unknown CAN USE PAPER T 12/08/2008 Yes sertraline [id number] Drug Allergy Severe CANNOT BREATHE 03/14/2017 Yes atorvastatin [id number] Drug Allergy Mild N/A 03/14/2017 Yes Cephalosporins [id number] Drug Allergy Mild N/A 03/14/2017 Yes clarithromycin [id number] Drug Allergy Mild N/A 03/14/2017 Yes codeine [id number] Drug Allergy Mild PT HAS RECEIVED 03/14/2017 Yes diltiazem [id number] Drug Allergy Mild N/A 03/14/2017 Yes glucagon [id number] Drug Allergy Mild N/A 03/14/2017 Yes Iodinated Contrast- Oral and IV Dye [id number] Drug Allergy Mild N/A 03/14/2017 Yes lisinopril [id number] Drug Allergy Mild N/A 03/14/2017 Yes metoprolol [id number] Drug Allergy Mild N/A 03/14/2017 Yes morphine [id number] Drug Allergy Mild PT HAS RECEIVED 03/14/2017 Yes nifedipine [id number] Drug Allergy Mild N/A 03/14/2017 Yes paroxetine [id number] Drug Allergy Mild N/A 03/14/2017 Yes Penicillins [id number] Drug Allergy Mild N/A 03/14/2017 Yes Shellfish [id number] Drug Allergy Mild N/A 03/14/2017 Yes sulfamethoxazole [id number] Drug Allergy Mild N/A 03/14/2017 Yes acetaminophen [id number] Drug Allergy Unknown N/A 03/14/2017 Yes furosemide [id number] Drug Allergy Unknown N/A 03/14/2017 Yes latex [id number] Drug Allergy Unknown N/A 03/14/2017 Yes meperidine [id number] Drug Allergy Unknown PATIENT HAS REC 03/14/2017 Yes propoxyphene [id number] Drug Allergy Unknown N/A 03/14/2017 Yes sulindac [id number] Drug Allergy Unknown N/A 03/14/2017 Yes tramadol [id number] Drug Allergy Unknown N/A 04/12/2017 Yes benzocaine [id number] Drug Allergy Unknown methemoglobinem 05/14/2018 Medications There is no data. 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 06/29/2010 Ot 793.99 OT NOSP (ABN) FINDINGS RADIOLOGICAL O 06/29/2010 Ot V43.64 HIP JOINT REPLACEMENT STATUS 06/29/2010 Ot V43.65 KNEE JOINT REPLACEMENT STATUS 06/29/2010 Ot V45.77 ACQRD ABSENCE OF GENITAL ORGANS 06/29/2010 Ot V45.89 POSTSURGICAL STATES NEC 06/29/2010 Ot V58.66 LONG-TERM (CURRENT) USE OF ASPIRIN 06/29/2010 Ot V58.69 OT MED,LT,CURRENT USE 12/14/2011 Ot 924.8 MULTIPLE CONTUSIONS NEC 12/14/2011 Ot E000.8 OTHER EXTERNAL CAUSE STATUS 12/14/2011 Ot E001.0 ACTIVITIES INVOLVING WALKING, MARCHING A 12/14/2011 Ot E849.0 ACCIDENT IN HOME 12/14/2011 Ot E885.9 FALL FROM SLIPPING, TRIPPING, OR STUMBLI 01/23/2012 Ot 250.00 DIAB YESSICA WO COMPL, TYPE II OR UNSPEC TY 01/23/2012 Ot 311 DEPRESSIVE DISORDER NEC 01/23/2012 Ot 401.9 HYPERTENSION NOS 01/23/2012 Ot 531.90 STOMACH ULCER NOS 01/23/2012 Ot V58.69 OT MED,LT,CURRENT USE 03/11/2012 Ot 789.01 ABDOMINAL PAIN, RIGHT UPPER QUADRANT 03/11/2012 Ot V57.1 PHYSICAL THERAPY NEC 08/04/2012 ANNABELLE GASPAR, ARNEL M Ot 531.90 STOMACH ULCER NOS 08/15/2012 CHANEL COTTO MD P Ot 250.00 DIAB YESSICA WO COMPL, TYPE II OR UNSPEC TY 08/15/2012 CHANEL COTTO MD P Ot 300.00 ANXIETY STATE NOS 08/15/2012 CHANEL COTTO MD P Ot 311 DEPRESSIVE DISORDER NEC 08/15/2012 CHANEL COTTO MD P Ot 401.9 HYPERTENSION NOS 08/15/2012 CHANEL COTTO MD P Ot 530.81 ESOPHAGEAL REFLUX 08/15/2012 CHANEL COTTO MD P Ot 715.36 LOC OSTEOARTH NOS-L/LEG 08/22/2012 TELLY GASPAR LUIS CARLOS E Ot 041.49 OTHER AND UNSPECIFIED ESCHERICHIA COLI [ 08/22/2012 TELLY GASPAR LUIS CARLOS E Ot 250.00 DIAB YESSICA WO COMPL, TYPE II OR UNSPEC TY 08/22/2012 TELLY GASPAR LUIS CARLOS E Ot 273.8 DIS PLAS PROTEIN MET NEC 08/22/2012 TELLY GASPAR LUIS CARLOS E Ot 276.8 HYPOPOTASSEMIA 08/22/2012 LUIS CARLOS VARNER MD E Ot 285.9 ANEMIA NOS 08/22/2012 TELLY GASPAR LUIS CARLOS E Ot 300.00 ANXIETY STATE NOS 08/22/2012 TELLY GASPAR LUIS CARLOS E Ot 311 DEPRESSIVE DISORDER NEC 08/22/2012 TELLY GASPAR LUIS CARLOS E Ot 338.29 OTHER CHRONIC PAIN 08/22/2012 TELLY GASPAR LUIS CARLOS E Ot 401.9 HYPERTENSION NOS 08/22/2012 TELLY GASPAR LUIS CARLOS E Ot 596.51 HYPERTONICITY OF BLADDER 08/22/2012 LUIS CARLOS VARNER MD E Ot 599.0 URIN TRACT INFECTION NOS 08/22/2012 LUIS CARLOS VARNER MD E Ot 625.6 FEM STRESS INCONTINENCE 08/22/2012 LUIS CARLOS VARNER MD E Ot 724.5 BACKACHE NOS 08/22/2012 TELLY GASPAR LUIS CARLOS E Ot V43.65 KNEE JOINT REPLACEMENT STATUS 08/22/2012 LUIS CARLOS VARNER MD E Ot V54.81 AFTERCARE FOLLOWING JOINT REPLACEMENT 08/22/2012 LUIS CARLOS VARNER MD E Ot V57.1 PHYSICAL THERAPY NEC 08/22/2012 LUIS CARLOS VARNER MD E Ot V57.21 ENCOUNTER FOR OCCUPATIONAL THERAPY 10/31/2012 CHANEL COTTO MD Ot V43.65 KNEE JOINT REPLACEMENT STATUS 10/31/2012 YADIEL GASPAR, CHANEL Ramos Ot V54.81 AFTERCARE FOLLOWING JOINT REPLACEMENT 10/31/2012 CHANEL COTTO MD Ot V57.1 PHYSICAL THERAPY NEC 02/18/2013 HIRAL WOLF MD Ot 041.3 KLEBSIELLA PNEUMONIAE 02/18/2013 LUCIANO GASPAR, HIRAL Brunner Ot 599.0 URIN TRACT INFECTION NOS 03/12/2013 SADIQ CHO WILDLIFE REFUGE SPECIALIST Ot 599.0 URIN TRACT INFECTION NOS 03/12/2013 SADIQ CHO WILDLIFE REFUGE SPECIALIST Ot V58.81 FIT/ADJ VASCULAR CATHETER 02/15/2014 ANNABELLE GASPAR, ARNEL Salinas Ot 250.00 DIAB YESSICA WO COMPL, TYPE II OR UNSPEC TY 02/15/2014 ANNABELLE GASPAR, ARNEL [place] Ot 562.10 DIVERTICULOSIS COLON (W/O MENT OF HEMORR 02/15/2014 ANNABELLE GASPAR, ARNEL [place]inas Ot 706.2 SEBACEOUS CYST 02/15/2014 ANNABELLE GASPAR, ARNEL Salinas Ot 787.91 DIARRHEA 03/09/2014 ANNABELLE GASPAR, ARNEL Salinas Ot 562.11 03/09/2014 ANNABELLE GASPAR, ARNEL [place] Ot 706.2 03/09/2014 ANNABELLE GASPAR, ARNEL [place] Ot 787.91 03/09/2014 ANNABELLE GASPAR, ARNEL [place] Ot 791.9 03/09/2014 ANNABELLE GASPAR, ARNEL Salinas Ot V72.63 03/09/2014 ANNABELLE GASPAR, ARNEL [place] Ot V74.8 05/05/2014 BIMAL BROWN MD Ot 595.2 05/10/2014 BIMAL BROWN MD Ot 595.2 05/13/2014 YADIEL GASPAR, CHANEL Ramos Ot 733.96 05/13/2014 CHANEL COTTO MD Ot V43.64 05/13/2014 Ot 250.00 05/13/2014 Ot 401.9 05/13/2014 Ot 715.36 05/13/2014 Ot 719.06 05/13/2014 Ot V43.64 05/13/2014 Ot V58.66 05/13/2014 Ot V58.69 05/13/2014 Ot V72.83 05/13/2014 Ot V74.8 05/13/2014 Ot 788.63 05/13/2014 Ot 789.00 05/13/2014 Ot 791.9 05/13/2014 Ot 433.10 05/13/2014 Ot 709.2 05/13/2014 Ot V43.65 05/13/2014 Ot V72.63 05/13/2014 Ot V74.8 05/13/2014 Ot 599.82 05/13/2014 Ot 788.30 05/13/2014 Ot V72.63 05/13/2014 Ot V72.81 05/13/2014 Ot V72.83 05/13/2014 Ot 596.51 05/13/2014 Ot 599.0 05/13/2014 Ot 599.82 05/13/2014 Ot 706.2 05/13/2014 Ot 788.30 05/13/2014 Ot V58.66 05/13/2014 Ot V58.69 05/13/2014 Ot 780.79 05/13/2014 Ot 786.09 05/13/2014 Ot 786.59 05/13/2014 Ot 396.3 05/13/2014 Ot 397.0 05/13/2014 Ot 780.79 05/13/2014 Ot 786.09 05/13/2014 Ot 786.59 05/13/2014 Ot V72.84 05/13/2014 ANNABELLE GASPAR, ARNEL [place]inas Ot V72.84 05/13/2014 YADIEL GASPAR, CHANEL Ramos Ot 715.36 05/13/2014 YADIEL GASPAR, CHANEL Ramos Ot V72.63 05/13/2014 YADIEL GASPAR, CHANEL Ramos Ot V72.83 05/13/2014 SADIQ CHOP Ot V58.81 05/13/2014 Ot 041.3 05/13/2014 Ot 599.0 05/13/2014 Ot 599.0 05/13/2014 Ot V58.81 05/13/2014 AMINTA FRANCISCO MEASURER Ot 389.16 05/13/2014 AMINTA FRANCISCO MEASURER Ot 389.9 05/13/2014 FRIEDA BARTLETT Ot V76.12 05/13/2014 ANNABELLE GASPAR, ARNEL Salinas Ot 562.11 05/13/2014 ANNABELLE GASPAR, ARNEL [place] Ot 706.2 05/13/2014 ANNABELLE GASPAR, ARNEL Salinas Ot 787.91 05/13/2014 ANNABELLE GASPAR, ARNEL [place] Ot 791.9 05/13/2014 ANNABELLE GASPAR, ARNEL [place] Ot V72.63 05/13/2014 ANNABELLE GASPAR, ARNEL [place] Ot V74.8 05/13/2014 STEPHANIE GASPAR, BIMAL Kulkarni Ot 595.2 05/13/2014 STEPHANIE GASPAR, BIMAL Kulkarni Ot 595.2 05/13/2014 YADIEL GASPAR, CHANEL Ramos Ot 733.96 05/13/2014 YADIEL GASPAR, CHANEL Ramos Ot V43.64 06/01/2014 Ot 250.00 DIAB YESSICA WO COMPL, TYPE II OR UNSPEC TY 06/01/2014 Ot 272.4 HYPERLIPIDEMIA NEC/NOS 06/01/2014 Ot 278.00 OBESITY, NOS 06/01/2014 Ot 401.9 HYPERTENSION NOS 06/01/2014 Ot 414.01 CORONARY ATHEROSCLEROSIS OF [place] CORON 06/01/2014 Ot 414.4 CORONARY ATHEROSCLEROSIS DUE TO [place]CIF[place] 06/01/2014 Ot 530.81 ESOPHAGEAL REFLUX 06/01/2014 Ot 786.09 RESPIRATORY ABNORM NEC 06/01/2014 Ot 786.59 CHEST PAIN NEC 06/01/2014 Ot V58.69 OTH MED,LT,CURRENT USE 06/01/2014 Ot V85.35 BODY MASS INDEX 35.0-35.9, ADULT 06/22/2014 Ot 788.63 06/22/2014 Ot 789.00 06/22/2014 Ot 791.9 06/22/2014 Ot 433.10 06/22/2014 Ot 709.2 06/22/2014 Ot V43.65 06/22/2014 Ot V72.63 06/22/2014 Ot V74.8 06/22/2014 Ot 599.82 06/22/2014 Ot 788.30 06/22/2014 Ot V72.63 06/22/2014 Ot V72.81 06/22/2014 Ot V72.83 06/22/2014 Ot 596.51 06/22/2014 Ot 599.0 06/22/2014 Ot 599.82 06/22/2014 Ot 706.2 06/22/2014 Ot 788.30 06/22/2014 Ot V58.66 06/22/2014 Ot V58.69 06/22/2014 Ot 780.79 06/22/2014 Ot 786.09 06/22/2014 Ot 786.59 06/22/2014 Ot 396.3 06/22/2014 Ot 397.0 06/22/2014 Ot 780.79 06/22/2014 Ot 786.09 06/22/2014 Ot 786.59 06/22/2014 Ot V72.84 06/22/2014 ANNABELLE GASPAR, ARNEL M Ot V72.84 06/22/2014 YADIEL GASPAR, CHANEL P Ot 715.36 06/22/2014 YADIEL GASPAR, CHANEL P Ot V72.63 06/22/2014 YADIEL GASPAR, CHANEL P Ot V72.83 06/22/2014 SADIQ CHO WILDLIFE REFUGE SPECIALIST Ot V58.81 06/22/2014 Ot 041.3 06/22/2014 Ot 599.0 06/22/2014 Ot 599.0 06/22/2014 Ot V58.81 06/22/2014 AMINTA FRANCISCO MEASURER Ot 389.16 06/22/2014 AMINTA FRANCISCO MEASURER Ot 389.9 06/22/2014 FRIEDA BARTLETT WILDLIFE REFUGE SPECIALIST Ot V76.12 06/22/2014 ANNABELLE GASPAR, ARNEL [place] Ot 562.11 06/22/2014 ANNABELLE GASPAR, ARNEL M Ot 706.2 06/22/2014 ANNABELLE GASPAR, ARNEL M Ot 787.91 06/22/2014 ANNABELLE GASPAR, ARNEL [place] Ot 791.9 06/22/2014 ANNABELLE GASPAR, ARNEL M Ot V72.63 06/22/2014 ANNABELLE GASPAR, ARNEL M Ot V74.8 06/22/2014 STEPHANIE GASPAR, BIMAL Kulkarni Ot 595.2 06/22/2014 ZAIN GASPAR FACC, ALI FACP CCDS Ot 250.00 06/22/2014 ZAIN GASPAR FACC, ALI FACP CCDS Ot 272.4 06/22/2014 ZAIN GASPAR FACC, ALI FACP CCDS Ot 401.9 06/22/2014 ZAIN GASPAR FACC, ALI FACP CCDS Ot 414.00 06/22/2014 ZAIN GASPAR FACC, ALI FACP CCDS Ot 447.9 06/22/2014 ZAIN GASPAR FACC, ALI FACP CCDS Ot 786.09 06/22/2014 ZAIN GASPAR FACC, ALI FACP CCDS Ot 786.50 06/22/2014 ZAIN GASPAR FACC, ALI FACP CCDS Ot 250.00 06/22/2014 ZAIN GASPAR FACC, ALI FACP CCDS Ot 272.4 06/22/2014 ZAIN GASPAR FACC, ALI FACP CCDS Ot 278.00 06/22/2014 ZAIN GASPAR FACC, ALI FACP CCDS Ot 401.9 06/22/2014 ZAIN GASPAR FACC, ALI FACP CCDS Ot 414.00 06/22/2014 ZAIN GASPAR FACC, ALI FACP CCDS Ot 447.9 06/22/2014 ZAIN GASPAR FAC, ALI FACP CCDS Ot 530.81 06/22/2014 ZAIN GASPAR FAC, ALI FACP CCDS Ot 715.90 06/22/2014 ZAIN GASPAR FAC, ALI FACP CCDS Ot 782.3 06/22/2014 ZAIN GASPAR FAC, ALI FACP CCDS Ot 786.09 06/22/2014 ZAIN GASPAR FACC, ALI FACP CCDS Ot 786.50 06/22/2014 STEPHANIE GASPAR, BIMAL Kulkarni Ot 595.2 06/22/2014 YADIEL GASPAR, CHANEL P Ot 733.96 06/22/2014 YADIEL GASPAR, CHANEL P Ot V43.64 06/28/2014 YADIEL GASPAR, CHANEL P Ot 729.5 06/28/2014 YADIEL GASPAR, CHANEL P Ot 780.79 06/28/2014 YADIEL GASPAR, CHANEL P Ot V57.1 06/29/2014 YADIEL GASPAR, CHANEL P Ot 733.96 06/29/2014 YADIEL GASPAR, CHANEL P Ot V43.64 07/08/2014 YADIEL GASPAR, CHANEL P Ot 729.5 07/08/2014 YADIEL GASPAR, CHANEL P Ot 780.79 07/08/2014 YADIEL GASPAR, CHANEL P Ot V57.1 08/20/2014 YADIEL GASPAR, CHANEL P Ot 729.5 08/20/2014 YADIEL GASPAR, CHANEL P Ot 780.79 08/20/2014 YADIEL GASPAR, CHANEL P Ot V57.1 08/28/2014 STEPHANIE GASPAR, BIMAL Kulkarni Ot 595.2 09/17/2014 YADIEL GASPAR, CHANEL P Ot 729.5 PAIN IN LIMB 09/17/2014 YADIEL GASPAR, CHANEL P Ot 780.79 OTH MALAISE FATIGUE 09/17/2014 YADIEL GASPAR, CHANEL Ramos Ot V57.1 PHYSICAL THERAPY NEC 11/17/2014 ROSITA RIVERA DO Ot 611.71 11/18/2014 Ot 041.3 11/18/2014 Ot 599.0 11/18/2014 Ot 599.0 11/18/2014 Ot V58.81 11/18/2014 ALEXI RAMOS MD Ot 850.9 CONCUSSION NOS 11/18/2014 ALEXI RAMOS MD Ot 959.01 HEAD INJURY, NOS 11/18/2014 ALEXI RAMOS MD Ot E000.8 OTHER EXTERNAL CAUSE STATUS 11/18/2014 ALEXI RAMOS MD Ot E849.0 ACCIDENT IN HOME 11/18/2014 ALEXI RAMOS MD Ot E888.1 FALL STRIKING OBJECT NEC 10/27/2015 ANNABELLE GASPAR, ARNEL Salinas Ot Z01.818 ENCOUNTER FOR OTHER PREPROCEDURAL EXAMIN 10/28/2015 Ot 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 10/28/2015 Ot 788.30 UNSPECIFIED URINARY INCONTINENCE 10/28/2015 Ot V72.63 PRE-PROCEDURAL LABORATORY EXAMINATION 10/28/2015 Ot V72.81 [id number] CARDIOVASCULAR 10/28/2015 Ot V72.83 EXAM PRE-OPERATIVE NEC 10/28/2015 Ot 596.51 HYPERTONICITY OF BLADDER 10/28/2015 Ot 599.0 URIN TRACT INFECTION NOS 10/28/2015 Ot 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 10/28/2015 Ot 706.2 SEBACEOUS CYST 10/28/2015 Ot 788.30 UNSPECIFIED URINARY INCONTINENCE 10/28/2015 Ot V58.66 LONG-TERM (CURRENT) USE OF ASPIRIN 10/28/2015 Ot V58.69 OTH MED,LT,CURRENT USE 10/28/2015 Ot 780.79 OTH MALAISE FATIGUE 10/28/2015 Ot 786.09 RESPIRATORY ABNORM NEC 10/28/2015 Ot 786.59 CHEST PAIN NEC 10/28/2015 Ot 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 10/28/2015 Ot 397.0 TRICUSPID VALVE DISEASE 10/28/2015 Ot 780.79 OTH MALAISE FATIGUE 10/28/2015 Ot 786.09 RESPIRATORY ABNORM NEC 10/28/2015 Ot 786.59 CHEST PAIN NEC 10/28/2015 Ot V72.84 EXAM PRE-OPERATIVE NOS 10/28/2015 ANNABELLE GASPAR, ARNEL Salinas Ot V72.84 EXAM PRE-OPERATIVE NOS 10/28/2015 YADIEL GASPAR, CHANEL Ramos Ot 715.36 LOC OSTEOARTH NOS-L/LEG 10/28/2015 CHANEL COTTO MD Ot V72.63 PRE-PROCEDURAL LABORATORY EXAMINATION 10/28/2015 YADIEL GASPAR, CHANEL Ramos Ot V72.83 EXAM PRE-OPERATIVE NEC 10/28/2015 SADIQ CHO WILDLIFE REFUGE SPECIALIST Ot V58.81 FIT/ADJ VASCULAR CATHETER 10/28/2015 Ot 041.3 KLEBSIELLA PNEUMONIAE 10/28/2015 Ot 599.0 URIN TRACT INFECTION NOS 10/28/2015 Ot 599.0 URIN TRACT INFECTION NOS 10/28/2015 Ot V58.81 FIT/ADJ VASCULAR CATHETER 10/28/2015 AMINTA FRANCISCO MEASURER Ot 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, ASYMMETRICAL 10/28/2015 AMINTA FRANCISCO MEASURER Ot 389.9 HEARING LOSS NOS 10/28/2015 FRIEDA BARTLETT WILDLIFE REFUGE SPECIALIST Ot V76.12 OTH SCREEN MAMMO-MALIGN NEOPLASM OF [place] 10/28/2015 ANNABELLE GASPAR, ARNEL Salinas Ot 562.11 DIVERTICULITIS COLON (W/O MENT OF HEMORR 10/28/2015 ANNABELLE GASPAR, ARNEL Salinas Ot 706.2 SEBACEOUS CYST 10/28/2015 ARNEL ALANIS MD Ot 787.91 DIARRHEA 10/28/2015 ARNEL ALANIS MD Ot 791.9 ABN URINE FINDINGS NEC 10/28/2015 ANNABELLE GASPAR, ARNEL Salinas Ot V72.63 PRE-PROCEDURAL LABORATORY EXAMINATION 10/28/2015 ANNABELLE GASPAR, ARNEL Salinas Ot V74.8 SCREEN-BACTERIAL DIS NEC 10/28/2015 BIMAL BROWN MD Ot 595.2 CHRONIC CYSTITIS NEC 10/28/2015 ZAIN GASPAR FACC, ALI FACP CCDS Ot 250.00 DIAB YESSICA WO COMPL, TYPE II OR UNSPEC TY 10/28/2015 ZAIN GASPAR FACC, ALI FACP CCDS Ot 272.4 HYPERLIPIDEMIA NEC/NOS 10/28/2015 ZAIN GASPAR FACC, ALI FACP CCDS Ot 401.9 HYPERTENSION NOS 10/28/2015 ZAIN GASPAR FACC, ALI FACP CCDS Ot 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 TYPE VESSEL, NATIV 10/28/2015 ZAIN GASPAR FACC, ALI FACP CCDS Ot 447.9 ARTERIAL DISEASE NOS 10/28/2015 ZAIN GASPAR FACC, ALI FACP CCDS Ot 786.09 RESPIRATORY ABNORM NEC 10/28/2015 ZAIN GASPAR FACC, ALI FACP CCDS Ot 786.50 CHEST PAIN NOS 10/28/2015 ZAIN GASPAR FACC, ALI FACP CCDS Ot 250.00 DIAB YESSICA WO COMPL, TYPE II OR UNSPEC TY 10/28/2015 ZAIN GASPAR FACC, ALI FACP CCDS Ot 272.4 HYPERLIPIDEMIA NEC/NOS 10/28/2015 ZAIN GASPAR FACC, ALI FACP CCDS Ot 278.00 OBESITY, NOS 10/28/2015 ZAIN GASPAR FACC, ALI FACP CCDS Ot 401.9 HYPERTENSION NOS 10/28/2015 ZAIN GASPAR FACC, ALI FACP CCDS Ot 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 TYPE VESSEL, NATIV 10/28/2015 ZAIN GASPAR FACStephen, ALI FACP CCDS Ot 447.9 ARTERIAL DISEASE NOS 10/28/2015 ZAIN GASPAR FACC, ALI FACP CCDS Ot 530.81 ESOPHAGEAL REFLUX 10/28/2015 ZAIN SCHULERC, ALI FACP CCDS Ot 715.90 OSTEOARTHROS NOS-UNSPEC 10/28/2015 ZAIN GASPAR FACC, ALI FACP CCDS Ot 782.3 EDEMA 10/28/2015 ZAIN GASPAR FACC, ALI FACP CCDS Ot 786.09 RESPIRATORY ABNORM NEC 10/28/2015 ZAIN SCHULERC, ALI FACP CCDS Ot 786.50 CHEST PAIN NOS 10/28/2015 BIMAL BROWN MD Ot 595.2 CHRONIC CYSTITIS NEC 10/28/2015 CHANEL COTTO MD Ot 733.96 STRESS FRACTURE OF FEMORAL NECK 10/28/2015 CHANEL COTTO MD Ot V43.64 HIP JOINT REPLACEMENT STATUS 10/28/2015 ROSITA RIVERA DO Ot 611.71 MASTODYNIA 10/28/2015 ROSITA IRVERA DO Ot Z12.31 ENCNTR SCREEN MAMMOGRAM FOR MALIGNANT NE 10/28/2015 ANNABELLE GASPAR, ARNEL Salinas Ot Z01.818 ENCOUNTER FOR OTHER PREPROCEDURAL EXAMIN 10/28/2015 ROSITA RIVERA DO Ot Z12.31 ENCNTR SCREEN MAMMOGRAM FOR MALIGNANT NE 10/31/2015 RIVERA DO ROSITA Stephen Ot Z12.31 ENCNTR SCREEN MAMMOGRAM FOR MALIGNANT NE 10/31/2015 RIVERA DO, ROSITA C Ot Z12.31 ENCNTR SCREEN MAMMOGRAM FOR MALIGNANT NE 10/31/2015 RIVERA DO, ROSITA C Ot Z12.31 ENCNTR SCREEN MAMMOGRAM FOR MALIGNANT NE 10/31/2015 ANNABELLE GASPAR, ARNEL Salinas Ot K20.9 ESOPHAGITIS, UNSPECIFIED 10/31/2015 ANNABELLE GASPAR, ARNEL Salinas Ot K25.9 GASTRIC ULCER, UNSP ACUTE OR CHRONIC, 11/18/2015 RIVERA DO ROSITA C Ot Z12.31 ENCNTR SCREEN MAMMOGRAM FOR MALIGNANT NE 01/31/2016 Ot 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 01/31/2016 Ot 788.30 UNSPECIFIED URINARY INCONTINENCE 01/31/2016 Ot V72.63 PRE-PROCEDURAL LABORATORY EXAMINATION 01/31/2016 Ot V72.81 [id number]-CVR-OFCBKPACR CARDIOVASCULAR 01/31/2016 Ot V72.83 EXAM PRE-OPERATIVE NEC 01/31/2016 Ot 596.51 HYPERTONICITY OF BLADDER 01/31/2016 Ot 599.0 URIN TRACT INFECTION NOS 01/31/2016 Ot 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 01/31/2016 Ot 706.2 SEBACEOUS CYST 01/31/2016 Ot 788.30 UNSPECIFIED URINARY INCONTINENCE 01/31/2016 Ot V58.66 LONG-TERM (CURRENT) USE OF ASPIRIN 01/31/2016 Ot V58.69 OTH MED,LT,CURRENT USE 01/31/2016 Ot 780.79 OTH MALAISE FATIGUE 01/31/2016 Ot 786.09 RESPIRATORY ABNORM NEC 01/31/2016 Ot 786.59 CHEST PAIN NEC 01/31/2016 Ot 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 01/31/2016 Ot 397.0 TRICUSPID VALVE DISEASE 01/31/2016 Ot 780.79 OTH MALAISE FATIGUE 01/31/2016 Ot 786.09 RESPIRATORY ABNORM NEC 01/31/2016 Ot 786.59 CHEST PAIN NEC 01/31/2016 Ot V72.84 EXAM PRE-OPERATIVE NOS 01/31/2016 ANNABELLE GASPAR, ARNEL Salinas Ot V72.84 EXAM PRE-OPERATIVE NOS 01/31/2016 YADIEL GASPAR, CHANEL P Ot 715.36 LOC OSTEOARTH NOS-L/LEG 01/31/2016 YADIEL GASPAR, CHANEL Ramos Ot V72.63 PRE-PROCEDURAL LABORATORY EXAMINATION 01/31/2016 YADIEL GASPAR, CHANEL Ramos Ot V72.83 EXAM PRE-OPERATIVE NEC 01/31/2016 MARQUIS SADIQ Brad WILDLIFE REFUGE SPECIALIST Ot V58.81 FIT/ADJ VASCULAR CATHETER 01/31/2016 Ot 041.3 KLEBSIELLA PNEUMONIAE 01/31/2016 Ot 599.0 URIN TRACT INFECTION NOS 01/31/2016 Ot 599.0 URIN TRACT INFECTION NOS 01/31/2016 Ot V58.81 FIT/ADJ VASCULAR CATHETER 01/31/2016 AMINTA FRANCISCO MEASURER Ot 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, ASYMMETRICAL 01/31/2016 AMINTA FRANCISCO MEASURER Ot 389.9 HEARING LOSS NOS 01/31/2016 DHRUV FRIEDA W WILDLIFE REFUGE SPECIALIST Ot V76.12 OTH SCREEN MAMMO-MALIGN NEOPLASM OF [place] 01/31/2016 ANNABELLE GASPAR, ARNEL Salinas Ot 562.11 DIVERTICULITIS COLON (W/O MENT OF HEMORR 01/31/2016 ANNABELLE GASPAR, ARNEL Salinas Ot 706.2 SEBACEOUS CYST 01/31/2016 ANNABELLE GASPAR, ARNEL Salinas Ot 787.91 DIARRHEA 01/31/2016 ANNABELLE GASPAR, ARNEL Salinas Ot 791.9 ABN URINE FINDINGS NEC 01/31/2016 ANNABELLE GASPAR, ARNEL [place] Ot V72.63 PRE-PROCEDURAL LABORATORY EXAMINATION 01/31/2016 ANNABELLE GASPAR, ARNEL [place] Ot V74.8 SCREEN-BACTERIAL DIS NEC 01/31/2016 BIMAL BROWN MD Ot 595.2 CHRONIC CYSTITIS NEC 01/31/2016 ZAIN GASPAR FACC, ALI FACP CCDS Ot 250.00 DIAB YESSICA WO COMPL, TYPE II OR UNSPEC TY 01/31/2016 ZAIN GASPAR FACC, ALI FACP CCDS Ot 272.4 HYPERLIPIDEMIA NEC/NOS 01/31/2016 ZAIN GASPAR FACC, ALI FACP CCDS Ot 401.9 HYPERTENSION NOS 01/31/2016 ZAIN GASPAR FACC, ALI FACP CCDS Ot 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 TYPE VESSEL, NATIV 01/31/2016 ZAIN GASPAR FACC, JENNIFER FACP CCDS Ot 447.9 ARTERIAL DISEASE NOS 01/31/2016 ZAIN GASPAR FACC, ALI FACP CCDS Ot 786.09 RESPIRATORY ABNORM NEC 01/31/2016 ZAIN GASPAR FACC, ALI FACP CCDS Ot 786.50 CHEST PAIN NOS 01/31/2016 ZAIN SCHULERC, ALI FACP CCDS Ot 250.00 DIAB YESSICA WO COMPL, TYPE II OR UNSPEC TY 01/31/2016 ZAIN SCHULERC, ALI FACP CCDS Ot 272.4 HYPERLIPIDEMIA NEC/NOS 01/31/2016 ZAIN GASPAR FACC, ALI FACP CCDS Ot 278.00 OBESITY, NOS 01/31/2016 ZAIN GASPAR FACC, ALI FACP CCDS Ot 401.9 HYPERTENSION NOS 01/31/2016 ZAIN SCHULERC, ALI FACP CCDS Ot 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 TYPE VESSEL, NATIV 01/31/2016 ZAIN GASPAR FACC, ALI FACP CCDS Ot 447.9 ARTERIAL DISEASE NOS 01/31/2016 ZAIN SCHULERC, ALI FACP CCDS Ot 530.81 ESOPHAGEAL REFLUX 01/31/2016 ZAIN SCHULERC, ALI FACP CCDS Ot 715.90 OSTEOARTHROS NOS-UNSPEC 01/31/2016 ZAIN SCHULER, ALI FACP CCDS Ot 782.3 EDEMA 01/31/2016 ZAIN SCHULER, ALI FACP CCDS Ot 786.09 RESPIRATORY ABNORM NEC 01/31/2016 ZAIN SCHULER, ALI FACP CCDS Ot 786.50 CHEST PAIN NOS 01/31/2016 BIMAL BROWN MD Ot 595.2 CHRONIC CYSTITIS NEC 01/31/2016 YADIEL GASPAR, CHANEL [place] Ot 733.96 STRESS FRACTURE OF FEMORAL NECK 01/31/2016 YADIEL GASPAR, CHANEL [place] Ot V43.64 HIP JOINT REPLACEMENT STATUS 01/31/2016 ROSITA RIVERA DO Ot 611.71 MASTODYNIA 01/31/2016 ROSITA RIVERA DO Ot Z12.31 ENCNTR SCREEN MAMMOGRAM FOR MALIGNANT NE 01/31/2016 ROSITA RIVERA DO Ot N81.9 FEMALE GENITAL PROLAPSE, UNSPECIFIED 01/31/2016 ROSITA RIVERA DO Ot Z01.812 ENCOUNTER FOR PREPROCEDURAL LABORATORY E 01/31/2016 ROSITA RIVERA DO Ot Z11.2 ENCOUNTER FOR SCREENING FOR OTHER BACTER 02/01/2016 ROSITA RIVERA DO Ot N81.9 FEMALE GENITAL PROLAPSE, UNSPECIFIED 02/01/2016 ROSITA RIVERA DO Ot Z01.812 ENCOUNTER FOR PREPROCEDURAL LABORATORY E 02/01/2016 ROSITA RIVERA DO Ot Z11.2 ENCOUNTER FOR SCREENING FOR OTHER BACTER 02/07/2016 Ot 041.3 KLEBSIELLA PNEUMONIAE 02/07/2016 Ot 599.0 URIN TRACT INFECTION NOS 02/07/2016 Ot 599.0 URIN TRACT INFECTION NOS 02/07/2016 Ot V58.81 FIT/ADJ VASCULAR CATHETER 02/08/2016 ROSITA RIVERA DO Ot D25.1 INTRAMURAL LEIOMYOMA OF UTERUS 02/08/2016 ROSITA RIVERA DO Ot E11.9 TYPE 2 DIABETES MELLITUS WITHOUT COMPLIC 02/08/2016 ROSITA RIVERA DO Ot N28.9 DISORDER OF KIDNEY AND URETER, UNSPECIFI 02/08/2016 ROSITA RIVERA DO Ot N39.3 STRESS INCONTINENCE (FEMALE) (MALE) 02/08/2016 ROSITA RIVERA DO Ot N80.0 ENDOMETRIOSIS OF UTERUS 02/08/2016 ROSITA RIVERA DO Ot N81.2 INCOMPLETE UTEROVAGINAL PROLAPSE 02/08/2016 ROSITA RIVERA DO Ot N83.8 OTH NONINFLAMMATORY DISORD OF OVARY, FAL 02/08/2016 ROSITA RIVERA DO Ot 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 02/08/2016 ROSITA RIVERA DO Ot Z79.84 DELICATESSEN CLERK (CURRENT) USE OF ORAL HYPOGLYC 02/09/2016 ROSITA RIVERA DO Ot D25.1 INTRAMURAL LEIOMYOMA OF UTERUS 02/09/2016 ROSITA RIVERA DO Ot E11.9 TYPE 2 DIABETES MELLITUS WITHOUT COMPLIC 02/09/2016 ROSITA RIVERA DO Ot N28.9 DISORDER OF KIDNEY AND URETER, UNSPECIFI 02/09/2016 ROSITA RIVERA DO Ot N39.3 STRESS INCONTINENCE (FEMALE) (MALE) 02/09/2016 ROSITA RIVERA DO Ot N80.0 ENDOMETRIOSIS OF UTERUS 02/09/2016 NICOLE MOELLER ROSITA C Ot N81.2 INCOMPLETE UTEROVAGINAL PROLAPSE 02/09/2016 ROSITA RIVERA DO Ot N83.8 OTH NONINFLAMMATORY DISORD OF OVARY, FAL 02/09/2016 RIVERA DO, ROSITA C Ot 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 02/09/2016 RIVERA DO, ROSITA C Ot Z79.84 DELICATESSEN CLERK (CURRENT) USE OF ORAL HYPOGLYC 02/10/2016 RIVERA DO, ROSITA C Ot D25.1 INTRAMURAL LEIOMYOMA OF UTERUS 02/10/2016 RIVERA DO, ROSITA C Ot E11.9 TYPE 2 DIABETES MELLITUS WITHOUT COMPLIC 02/10/2016 RIVERA DO, ROSITA C Ot N28.9 DISORDER OF KIDNEY AND URETER, UNSPECIFI 02/10/2016 RIVERA DO, ROSITA C Ot N39.3 STRESS INCONTINENCE (FEMALE) (MALE) 02/10/2016 RIVERA DO, ROSITA C Ot N80.0 ENDOMETRIOSIS OF UTERUS 02/10/2016 RIVERA DO, ROSITA C Ot N81.2 INCOMPLETE UTEROVAGINAL PROLAPSE 02/10/2016 RIVERA DO, ROSITA C Ot N83.8 OTH NONINFLAMMATORY DISORD OF OVARY, FAL 02/10/2016 RIVERA DO, ROSITA C Ot 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 02/10/2016 RIVERA DO, ROSITA C Ot Z79.84 DELICATESSEN CLERK (CURRENT) USE OF ORAL HYPOGLYC 02/13/2016 RIVERA DO, ROSITA C Ot D25.1 INTRAMURAL LEIOMYOMA OF UTERUS 02/13/2016 RIVERA DO, ROSITA C Ot E11.9 TYPE 2 DIABETES MELLITUS WITHOUT COMPLIC 02/13/2016 RIVERA DO, ROSITA C Ot N28.9 DISORDER OF KIDNEY AND URETER, UNSPECIFI 02/13/2016 RIVERA DO, ROSITA C Ot N39.3 STRESS INCONTINENCE (FEMALE) (MALE) 02/13/2016 RIVERA DO, ROSITA C Ot N80.0 ENDOMETRIOSIS OF UTERUS 02/13/2016 RIVERA DO, ROSITA C Ot N81.2 INCOMPLETE UTEROVAGINAL PROLAPSE 02/13/2016 RIVERA DO, ROSITA C Ot N83.8 OTH NONINFLAMMATORY DISORD OF OVARY, FAL 02/13/2016 RIVERA DO, ROSITA C Ot 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 02/13/2016 RIVERA DO, ROSITA C Ot Z79.84 LONG-TERM (CURRENT) USE OF ORAL HYPOGLYC 06/26/2016 LUCIANO GASPAR, HIRAL Brunner Ot R26.9 UNSPECIFIED ABNORMALITIES OF GAIT AND MO 06/26/2016 HIRAL WOLF MD Ot R53.1 WEAKNESS 06/26/2016 HIRAL WOLF MD Ot Z91.81 HISTORY OF FALLING 07/04/2016 HIRAL WOLF MD Ot R26.9 UNSPECIFIED ABNORMALITIES OF GAIT AND MO 07/04/2016 HIRAL WOLF MD Ot R53.1 WEAKNESS 07/04/2016 HIRAL WOLF MD Ot Z91.81 HISTORY OF FALLING 07/20/2016 BIMAL BROWN MD Ot 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 07/30/2016 HIRAL WOLF MD Ot R26.9 UNSPECIFIED ABNORMALITIES OF GAIT AND MO 07/30/2016 HIRAL WOLF MD Ot R53.1 WEAKNESS 07/30/2016 HIRAL WOLF MD Ot Z91.81 HISTORY OF FALLING 08/08/2016 BIMAL BROWN MD Ot 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 11/05/2016 Ot 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 11/05/2016 Ot 788.30 UNSPECIFIED URINARY INCONTINENCE 11/05/2016 Ot V72.63 PRE-PROCEDURAL LABORATORY EXAMINATION 11/05/2016 Ot V72.81 [id number] CARDIOVASCULAR 11/05/2016 Ot V72.83 EXAM PRE-OPERATIVE NEC 11/05/2016 Ot 596.51 HYPERTONICITY OF BLADDER 11/05/2016 Ot 599.0 URIN TRACT INFECTION NOS 11/05/2016 Ot 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 11/05/2016 Ot 706.2 SEBACEOUS CYST 11/05/2016 Ot 788.30 UNSPECIFIED URINARY INCONTINENCE 11/05/2016 Ot V58.66 LONG-TERM (CURRENT) USE OF ASPIRIN 11/05/2016 Ot V58.69 OTH MED,LT,CURRENT USE 11/05/2016 Ot 780.79 OTH MALAISE FATIGUE 11/05/2016 Ot 786.09 RESPIRATORY ABNORM NEC 11/05/2016 Ot 786.59 CHEST PAIN NEC 11/05/2016 Ot 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 11/05/2016 Ot 397.0 TRICUSPID VALVE DISEASE 11/05/2016 Ot 780.79 OTH MALAISE FATIGUE 11/05/2016 Ot 786.09 RESPIRATORY ABNORM NEC 11/05/2016 Ot 786.59 CHEST PAIN NEC 11/05/2016 Ot V72.84 EXAM PRE-OPERATIVE NOS 11/05/2016 ANNABELLE GASPAR, ARNEL Salinas Ot V72.84 EXAM PRE-OPERATIVE NOS 11/05/2016 YADIEL GASPAR, CHANEL Ramos Ot 715.36 LOC OSTEOARTH NOS-L/LEG 11/05/2016 YADIEL GASPAR, CHANEL Ramos Ot V72.63 PRE-PROCEDURAL LABORATORY EXAMINATION 11/05/2016 YADIEL GASPAR, CHANEL Ramos Ot V72.83 EXAM PRE-OPERATIVE NEC 11/05/2016 SADIQ CHO WILDLIFE REFUGE SPECIALIST Ot V58.81 FIT/ADJ VASCULAR CATHETER 11/05/2016 Ot 041.3 KLEBSIELLA PNEUMONIAE 11/05/2016 Ot 599.0 URIN TRACT INFECTION NOS 11/05/2016 Ot 599.0 URIN TRACT INFECTION NOS 11/05/2016 Ot V58.81 FIT/ADJ VASCULAR CATHETER 11/05/2016 AMINTA FRANCISCO MEASURER Ot 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, ASYMMETRICAL 11/05/2016 AMINTA FRANCISCO MEASURER Ot 389.9 HEARING LOSS NOS 11/05/2016 FRIEDA BARTLETT [employer]DLIFE REFUGE SPECIALIST Ot V76.12 OTH SCREEN MAMMO-MALIGN NEOPLASM OF [place] 11/05/2016 ANNABELLE GASPAR, ARNEL Salinas Ot 562.11 DIVERTICULITIS COLON (W/O MENT OF HEMORR 11/05/2016 ANNABELLE GASPAR, ARNEL Salinas Ot 706.2 SEBACEOUS CYST 11/05/2016 ANNABELLE GASPAR, ARNEL Salinas Ot 787.91 DIARRHEA 11/05/2016 ANNABELLE GASPAR, ARNEL Salinas Ot 791.9 ABN URINE FINDINGS NEC 11/05/2016 ANNABELLE GASPAR, ARNEL Salinas Ot V72.63 PRE-PROCEDURAL LABORATORY EXAMINATION 11/05/2016 ANNABELLE GASPAR, ARNEL Salinas Ot V74.8 SCREEN-BACTERIAL DIS NEC 11/05/2016 BIMAL BROWN MD Ot 595.2 CHRONIC CYSTITIS NEC 11/05/2016 ZAIN GASPAR FACC, ALI FACP CCDS Ot 250.00 DIAB YESSICA WO COMPL, TYPE II OR UNSPEC TY 11/05/2016 ZAIN GASPAR FACC, ALI FACP CCDS Ot 272.4 HYPERLIPIDEMIA NEC/NOS 11/05/2016 ZAIN GASPAR FACC, ALI FACP CCDS Ot 401.9 HYPERTENSION NOS 11/05/2016 ZAIN GASPAR FACC, ALI FACP CCDS Ot 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 TYPE VESSEL, NATIV 11/05/2016 ZAIN GASPAR FACC, ALI FACP CCDS Ot 447.9 ARTERIAL DISEASE NOS 11/05/2016 ZAIN GASPAR FACC, ALI FACP CCDS Ot 786.09 RESPIRATORY ABNORM NEC 11/05/2016 ZAIN GASPAR FACC, ALI FACP CCDS Ot 786.50 CHEST PAIN NOS 11/05/2016 ZAIN GASPAR FACC, ALI FACP CCDS Ot 250.00 DIAB YESSICA WO COMPL, TYPE II OR UNSPEC TY 11/05/2016 ZAIN SCHULERC, ALI FACP CCDS Ot 272.4 HYPERLIPIDEMIA NEC/NOS 11/05/2016 ZAIN GASPAR FACC, ALI FACP CCDS Ot 278.00 OBESITY, NOS 11/05/2016 ZAIN GASPAR FACC, ALI FACP CCDS Ot 401.9 HYPERTENSION NOS 11/05/2016 ZAIN GASPAR FACC, ALI FACP CCDS Ot 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 TYPE VESSEL, NATIV 11/05/2016 ZAIN GASPAR FACC, ALI FACP CCDS Ot 447.9 ARTERIAL DISEASE NOS 11/05/2016 ZAIN GASPAR FACC, ALI FACP CCDS Ot 530.81 ESOPHAGEAL REFLUX 11/05/2016 ZAIN GASPAR FACC, ALI FACP CCDS Ot 715.90 OSTEOARTHROS NOS-UNSPEC 11/05/2016 ZAIN GASPAR FACC, ALI FACP CCDS Ot 782.3 EDEMA 11/05/2016 ZAIN GASPAR FACC, ALI FACP CCDS Ot 786.09 RESPIRATORY ABNORM NEC 11/05/2016 ZAIN GASPAR FACC, ALI FACP CCDS Ot 786.50 CHEST PAIN NOS 11/05/2016 BIMAL BROWN MD Ot 595.2 CHRONIC CYSTITIS NEC 11/05/2016 CHANEL COTTO MD Ot 733.96 STRESS FRACTURE OF FEMORAL NECK 11/05/2016 CHANEL COTTO MD Ot V43.64 HIP JOINT REPLACEMENT STATUS 11/05/2016 ROSITA RIVERA DO Ot 611.71 MASTODYNIA 11/05/2016 ROSITA RIVERA DO Ot Z12.31 ENCNTR SCREEN MAMMOGRAM FOR MALIGNANT NE 11/05/2016 BIMAL BROWN MD Ot 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 11/19/2016 ZAIN GASPAR FACC, ALI FACP CCDS Ot E11.9 TYPE 2 DIABETES MELLITUS WITHOUT COMPLIC 11/19/2016 ZAIN SCHULERC, ALI FACP CCDS Ot I25.10 ATHSCL HEART DISEASE OF [place] CORONARY 11/19/2016 ZAIN GASPAR FACC, ALI FACP CCDS Ot I65.23 OCCLUSION AND STENOSIS OF BILATERAL GBARIEL 11/19/2016 ZAIN GASPAR FACC, ALI FACP CCDS Ot R06.09 OTHER FORMS OF DYSPNEA 11/19/2016 ZAIN GASPAR FACC, ALI FACP CCDS Ot R07.89 OTHER CHEST PAIN 11/28/2016 ZAIN GASPAR FACC, ALI FACP CCDS Ot E11.9 TYPE 2 DIABETES MELLITUS WITHOUT COMPLIC 11/28/2016 ZAIN GASPAR FACC, ALI FACP CCDS Ot I25.10 ATHSCL HEART DISEASE OF [place] CORONARY 11/28/2016 ZAIN GASPAR FACC, ALI FACP CCDS Ot I65.23 OCCLUSION AND STENOSIS OF BILATERAL GABRIEL 11/28/2016 ZAIN SCHULERC, ALI FACP CCDS Ot R06.09 OTHER FORMS OF DYSPNEA 11/28/2016 ZAIN GASPAR FACC, ALI FACP CCDS Ot R07.89 OTHER CHEST PAIN 2016 [facility]PAR [facility], ALI FACP CCDS Ot E11.9 TYPE 2 DIABETES MELLITUS WITHOUT COMPLIC 2016 ZAIN GASPAR FACC, ALI FACP CCDS Ot I25.10 ATHSCL HEART DISEASE OF [place] CORONARY 2016 ZAIN SCHULERC, ALI FACP CCDS Ot I65.23 OCCLUSION AND STENOSIS OF BILATERAL GABRIEL 2016 ZAIN GASPAR FACC, ALI FACP CCDS Ot R06.09 OTHER FORMS OF DYSPNEA 2016 ZAIN SCHULERC, ALI FACP CCDS Ot R07.89 OTHER CHEST PAIN 12/12/[address] [facility], ALI FACP CCDS Ot E11.9 TYPE 2 DIABETES MELLITUS WITHOUT COMPLIC 12/12/2016 ZAIN SCHULERC, ALI FACP CCDS Ot I25.10 ATHSCL HEART DISEASE OF [place] CORONARY 12/12/2016 ZAIN GASPAR FACC, ALI FACP CCDS Ot I65.23 OCCLUSION AND STENOSIS OF BILATERAL GABRIEL 12/12/2016 ZAIN GASPAR FACC, ALI FACP CCDS Ot R06.09 OTHER FORMS OF DYSPNEA 12/12/2016 ZAIN GAPSAR FACC, ALI FACP CCDS Ot R07.89 OTHER CHEST PAIN 12/12/2016 ROSITA RIVERA DO Ot Z12.31 ENCNTR SCREEN MAMMOGRAM FOR MALIGNANT NE 12/19/2016 ZAIN GASPAR FACC, JENNIFER SCHULERP CCDS Ot E11.9 TYPE 2 DIABETES MELLITUS WITHOUT COMPLIC 12/19/2016 ZAIN GASPAR FACC, JENNIFER FACP CCDS Ot I25.10 ATHSCL HEART DISEASE OF [place] CORONARY 12/19/2016 ZAIN GASPAR FACC, JENNIFER [facility] CCDS Ot I65.23 OCCLUSION AND STENOSIS OF BILATERAL GABRIEL 12/19/2016 ZAIN GASPAR FACC, JENNIFER [facility] CCDS Ot R06.09 OTHER FORMS OF DYSPNEA 12/19/2016 ZAIN GASPAR FACC, JENNIFER [facility] CCDS Ot R07.89 OTHER CHEST PAIN 01/01/2017 ROSITA RIVERA DO Ot Z12.31 ENCNTR SCREEN MAMMOGRAM FOR MALIGNANT NE 02/27/2017 ROSA FLORES DO Ot E11.9 TYPE 2 DIABETES MELLITUS WITHOUT COMPLIC 02/27/2017 ROSA FLORES DO Ot F32.9 MAJOR DEPRESSIVE DISORDER, SINGLE EPISOD 02/27/2017 ROSA FLORES DO Ot F41.9 ANXIETY DISORDER, UNSPECIFIED 02/27/2017 ROSA FLORES DO Ot F43.10 POST-TRAUMATIC STRESS DISORDER, UNSPECIF 02/27/2017 ROSA FLORES DO Ot G43.909 MIGRAINE, UNSP, NOT INTRACTABLE, WITHOUT 02/27/2017 ROSA FLORES DO Ot I10 ESSENTIAL (PRIMARY) HYPERTENSION 02/27/2017 ROSA FLORES DO Ot K21.9 GASTRO-ESOPHAGEAL REFLUX DISEASE WITHOUT 02/27/2017 ROSA FLORES DO Ot M19.90 UNSPECIFIED OSTEOARTHRITIS, UNSPECIFIED 02/27/2017 ROSA FLORES DO Ot R51 HEADACHE 02/27/2017 ROSA FLORES DO Ot S01.511A LACERATION WITHOUT FOREIGN BODY OF LIP, 02/27/2017 ROSA FLORES DO Ot S09.90XA UNSPECIFIED INJURY OF HEAD, INITIAL ENCO 02/27/2017 ROSA FLORES DO Ot S13.4XXA SPRAIN OF LIGAMENTS OF CERVICAL SPINE, I 02/27/2017 ROSA FLORES DO Ot S20.219A CONTUSION OF UNSPECIFIED FRONT WALL OF T 02/27/2017 ROSA FLORES DO Ot S80.01XA CONTUSION OF RIGHT KNEE, INITIAL ENCOUNT 02/27/2017 ROAS FLORES DO Ot W01.198A FALL SAME LEV FROM SLIP/TRIP W STRIKE AG 02/27/2017 ROSA FLORES DO Ot Y92.000 [facility] OF [facility] NON-INSTIT[facility] (PRIVATE) R 02/27/2017 ROSA FLORES DO Ot Z23 ENCOUNTER FOR IMMUNIZATION 02/27/2017 ROSA FLORES DO Ot Z79.82 DELICATESSEN CLERK (CURRENT) USE OF ASPIRIN 02/27/2017 ROSA FLORES DO Ot Z79.84 DELICATESSEN CLERK (CURRENT) USE OF ORAL HYPOGLYC 02/27/2017 ROSA FLORES DO, Ot Z82.49 FAMILY HX OF ISCHEM HEART DIS AND OTH DI 02/27/2017 ROSA FLORES DO, Ot Z87.19 PERSONAL HISTORY OF OTHER DISEASES OF TH 02/27/2017 ROSA FLORES DO Ot Z87.440 PERSONAL HISTORY OF URINARY (TRACT) INFE 02/27/2017 ROSA FLORES DO Ot Z87.891 PERSONAL HISTORY OF NICOTINE DEPENDENCE 02/27/2017 ROSA FLORES DO Ot Z96.643 PRESENCE OF ARTIFICIAL HIP JOINT, BILATE 02/27/2017 ROSA FLORES DO Ot Z96.653 PRESENCE OF ARTIFICIAL KNEE JOINT, BILAT 03/01/2017 ROSA FLORES DO Ot E11.9 TYPE 2 DIABETES MELLITUS WITHOUT COMPLIC 03/01/2017 ROSA FLORES DO Ot F32.9 MAJOR DEPRESSIVE DISORDER, SINGLE EPISOD 03/01/2017 ROSA FLORES DO Ot F41.9 ANXIETY DISORDER, UNSPECIFIED 03/01/2017 ROSA FLORES DO Ot F43.10 POST-TRAUMATIC STRESS DISORDER, UNSPECIF 03/01/2017 ROSA FLORES DO Ot G43.909 MIGRAINE, UNSP, NOT INTRACTABLE, WITHOUT 03/01/2017 ROSA FLORES DO Ot I10 ESSENTIAL (PRIMARY) HYPERTENSION 03/01/2017 ROSA FLORES DO Ot K21.9 GASTRO-ESOPHAGEAL REFLUX DISEASE WITHOUT 03/01/2017 ROSA FLORES DO Ot M19.90 UNSPECIFIED OSTEOARTHRITIS, UNSPECIFIED 03/01/2017 ROSA FLORES DO Ot R51 HEADACHE 03/01/2017 MARK MOELLER ROSA Ritchie Higinio S01.511A LACERATION WITHOUT FOREIGN BODY OF LIP, 03/01/2017 MARK MOELLER ROSA Erma Sylvester S09.90XA UNSPECIFIED INJURY OF HEAD, INITIAL ENCO 03/01/2017 MARK MOELLERANNA MARIEA Erma Ot S13.4XXA SPRAIN OF LIGAMENTS OF CERVICAL SPINE, I 03/01/2017 ROSA FLORES DO, Ot S20.219A CONTUSION OF UNSPECIFIED FRONT WALL OF T 03/01/2017 MARK ANNA MARIEA Erma Ot S80.01XA CONTUSION OF RIGHT KNEE, INITIAL ENCOUNT 03/01/2017 MAKR MOELLERANNA MARIEA Erma Ot W01.198A FALL SAME LEV FROM SLIP/TRIP W STRIKE AG 03/01/2017 MARK ANNA MARIEA Erma Ot Y92.000 KITCHEN [facility] NON-INSTIT[facility] (PRIVATE) R 03/01/2017 MARK ROSA Ot Z23 ENCOUNTER FOR IMMUNIZATION 03/01/2017 ROSA FLORES DO Ot Z79.82 LONG-TERM (CURRENT) USE OF ASPIRIN 03/01/2017 ROSA FLORES DO Ot Z79.84 LONG-TERM (CURRENT) USE OF ORAL HYPOGLYC 03/01/2017 MARK ROSA Ot Z82.49 FAMILY HX OF ISCHEM HEART DIS AND OTH DI 03/01/2017 MARK ROSA Ot Z87.19 PERSONAL HISTORY OF OTHER DISEASES OF 03/01/2017 MARK MOELLERANNA MARIEA Erma Sylvester Z87.440 PERSONAL HISTORY OF URINARY (TRACT) INFE 03/01/2017 ROSA FLORES DO Ot Z87.891 PERSONAL HISTORY OF NICOTINE DEPENDENCE 03/01/2017 ROSA FLORES DO Ot Z96.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 PRESENCE OF ARTIFICIAL HIP JOINT, BILATE 03/01/2017 MARK ROSA Ot Z96.653 PRESENCE OF ARTIFICIAL KNEE JOINT, BILAT 03/14/2017 Ot 041.3 KLEBSIELLA PNEUMONIAE 03/14/2017 Ot 599.0 URIN TRACT INFECTION NOS 03/14/2017 Ot 599.0 URIN TRACT INFECTION NOS 03/14/2017 Ot V58.81 FIT/ADJ VASCULAR CATHETER 03/18/2017 ANNABELLE GASPAR, ARNEL Salinas Ot E04.2 NONTOXIC MULTINODULAR GOITER 03/18/2017 ANNABELLE GASPAR, ARNEL Salinas Ot R49.0 DYSPHONIA 03/18/2017 ANNABELLE GASPAR, ARNEL Salinas Ot R53.83 OTHER FATIGUE 03/21/2017 ANNABELLE GASPAR, ARNEL Salinas Ot E04.2 NONTOXIC MULTINODULAR GOITER 03/21/2017 ANNABELLE GASPAR, ARNEL Salinas Ot R49.0 DYSPHONIA 03/21/2017 ANNABELLE GASPAR, ARNEL Salinas Ot R53.83 OTHER FATIGUE 04/09/2017 ANNABELLE GASPAR, ARNEL Salinas Ot E04.1 NONTOXIC SINGLE THYROID NODULE 04/09/2017 ANNABELLE GASPAR, ARNEL Salinas Ot Z01.818 ENCOUNTER FOR OTHER PREPROCEDURAL EXAMIN 04/10/2017 ANNABELLE GASPAR, ARNEL Salinas Ot E04.1 NONTOXIC SINGLE THYROID NODULE 04/10/2017 ANNABELLE GASPAR, ARNEL Salinas Ot Z01.818 ENCOUNTER FOR OTHER PREPROCEDURAL EXAMIN 04/12/2017 ANNABELLE GASPAR, ARNEL Salinas Ot E04.2 NONTOXIC MULTINODULAR GOITER 04/12/2017 ANNABELLE GASPAR, ARNEL Salinas Ot R49.0 DYSPHONIA 04/12/2017 ANNABELLE GASPAR, ARNEL Salinas Ot R53.83 OTHER FATIGUE 04/12/2017 Ot 041.3 KLEBSIELLA PNEUMONIAE 04/12/2017 Ot 599.0 URIN TRACT INFECTION NOS 04/12/2017 Ot 599.0 URIN TRACT INFECTION NOS 04/12/2017 Ot V58.81 FIT/ADJ VASCULAR CATHETER 04/12/2017 Ot 041.3 KLEBSIELLA PNEUMONIAE 04/12/2017 Ot 599.0 URIN TRACT INFECTION NOS 04/12/2017 Ot 599.0 URIN TRACT INFECTION NOS 04/12/2017 Ot V58.81 FIT/ADJ VASCULAR CATHETER 04/12/2017 Ot 041.3 KLEBSIELLA PNEUMONIAE 04/12/2017 Ot 599.0 URIN TRACT INFECTION NOS 04/12/2017 Ot 599.0 URIN TRACT INFECTION NOS 04/12/2017 Ot V58.81 FIT/ADJ VASCULAR CATHETER 04/14/2017 ANNABELLE GASPAR, ARNEL Salinas Ot E04.2 NONTOXIC MULTINODULAR GOITER 04/14/2017 ANNABELLE GASPAR, ARNEL Salinas Ot E11.9 TYPE 2 DIABETES MELLITUS WITHOUT COMPLIC 04/14/2017 ANNABELLE GASPAR, ARNEL Salinas Ot E66.9 OBESITY, UNSPECIFIED 04/14/2017 ARNEL ALANIS MD Ot E78.5 HYPERLIPIDEMIA, UNSPECIFIED 04/14/2017 ARNEL ALANIS MD Ot I10 ESSENTIAL (PRIMARY) HYPERTENSION 04/14/2017 ARNEL ALANIS MD Ot I25.10 ATHSCL HEART DISEASE OF [place] CORONARY 04/14/2017 ARNEL ALANIS MD Ot I73.9 PERIPHERAL VASCULAR DISEASE, UNSPECIFIED 04/14/2017 ARNEL ALANIS MD Ot Z68.34 BODY MASS INDEX (BMI) 34.0-34.9, ADULT 04/14/2017 ARNEL ALANIS MD Ot Z79.82 DELICATESSEN CLERK (CURRENT) USE OF ASPIRIN 04/14/2017 ARNEL ALANIS MD Ot Z79.84 DELICATESSEN CLERK (CURRENT) USE OF ORAL HYPOGLYC 04/14/2017 ARNEL ALANIS MD Ot Z79.899 OTHER DELICATESSEN CLERK (CURRENT) DRUG THERAPY 04/15/2017 ARNEL ALANIS MD Ot E04.1 NONTOXIC SINGLE THYROID NODULE 04/15/2017 ARNEL ALANIS MD Ot Z01.818 ENCOUNTER FOR OTHER PREPROCEDURAL EXAMIN 04/16/2017 ARNEL ALANIS MD Ot E04.2 NONTOXIC MULTINODULAR GOITER 04/16/2017 ARNEL ALANIS MD Ot E11.9 TYPE 2 DIABETES MELLITUS WITHOUT COMPLIC 04/16/2017 ARNEL ALANIS MD Ot E66.9 OBESITY, UNSPECIFIED 04/16/2017 ARNEL ALANIS MD Ot E78.5 HYPERLIPIDEMIA, UNSPECIFIED 04/16/2017 ARNEL ALANIS MD Ot I10 ESSENTIAL (PRIMARY) HYPERTENSION 04/16/2017 ARNEL ALANIS MD Ot I25.10 ATHSCL HEART DISEASE OF [place] CORONARY 04/16/2017 ARNEL ALANIS MD Ot I73.9 PERIPHERAL VASCULAR DISEASE, UNSPECIFIED 04/16/2017 ARNEL ALANIS MD Ot Z68.34 BODY MASS INDEX (BMI) 34.0-34.9, ADULT 04/16/2017 ARNEL ALANIS MD Ot Z79.82 DELICATESSEN CLERK (CURRENT) USE OF ASPIRIN 04/16/2017 ARNEL ALANIS MD Ot Z79.84 DELICATESSEN CLERK (CURRENT) USE OF ORAL HYPOGLYC 04/16/2017 ARNEL ALANIS MD Ot Z79.899 OTHER DELICATESSEN CLERK (CURRENT) DRUG THERAPY 04/18/2017 ANNABELLE GASPAR, ARNEL Salinas Ot E04.1 NONTOXIC SINGLE THYROID NODULE 05/27/2017 Ot V72.84 EXAM PRE-OPERATIVE NOS 05/27/2017 ANNABELLE GASPAR, ARNEL Salinas Ot V72.84 EXAM PRE-OPERATIVE NOS 05/27/2017 YADIEL GASPAR, CHANEL Ramos Ot 715.36 LOC OSTEOARTH NOS-L/LEG 05/27/2017 YADIEL GASPAR, CHANEL Ramos Ot V72.63 PRE-PROCEDURAL LABORATORY EXAMINATION 05/27/2017 YADIEL GASPAR, CHANEL Ramos Ot V72.83 EXAM PRE-OPERATIVE NEC 05/27/2017 SADIQ CHO WILDLIFE REFUGE SPECIALIST Ot V58.81 FIT/ADJ VASCULAR CATHETER 05/27/2017 Ot 041.3 KLEBSIELLA PNEUMONIAE 05/27/2017 Ot 599.0 URIN TRACT INFECTION NOS 05/27/2017 Ot 599.0 URIN TRACT INFECTION NOS 05/27/2017 Ot V58.81 FIT/ADJ VASCULAR CATHETER 05/27/2017 AMINTA FRANCISCO MEASURER Ot 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, ASYMMETRICAL 05/27/2017 AMINTA FRANCISCO MEASURER Ot 389.9 HEARING LOSS NOS 05/27/2017 FRIEDA BARTLETT WILDLIFE REFUGE SPECIALIST Ot V76.12 OTH SCREEN MAMMO-MALIGN NEOPLASM OF [place] 05/27/2017 ANNABELLE GASPAR, ARNEL Salinas Ot 562.11 DIVERTICULITIS COLON (W/O MENT OF HEMORR 05/27/2017 ANNABELLE GASPAR, ARNEL Salinas Ot 706.2 SEBACEOUS CYST 05/27/2017 ANNABELLE GASPAR, ARNEL Salinas Ot 787.91 DIARRHEA 05/27/2017 ANNABELLE GASPAR, ARNEL Salinas Ot 791.9 ABN URINE FINDINGS NEC 05/27/2017 ANNABELLE GASPAR, ARNEL Salinas Ot V72.63 PRE-PROCEDURAL LABORATORY EXAMINATION 05/27/2017 ANNABELLE GASPAR, ARNEL Salinas Ot V74.8 SCREEN-BACTERIAL DIS NEC 05/27/2017 BIMAL BROWN MD Ot 595.2 CHRONIC CYSTITIS NEC 05/27/2017 ZAIN GASPAR FACC, ALI FACP CCDS Ot 250.00 DIAB YESSICA WO COMPL, TYPE II OR UNSPEC TY 05/27/2017 ZAIN GASPAR FACC, ALI FACP CCDS Ot 272.4 HYPERLIPIDEMIA NEC/NOS 05/27/2017 ZAIN GASPAR FACC, ALI FACP CCDS Ot 401.9 HYPERTENSION NOS 05/27/2017 ZAIN GASPAR FACC, ALI FACP CCDS Ot 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 TYPE VESSEL, NATIV 05/27/2017 ZAIN GASPAR FACC, ALI FACP CCDS Ot 447.9 ARTERIAL DISEASE NOS 05/27/2017 ZAIN GASPAR FACC, ALI FACP CCDS Ot 786.09 RESPIRATORY ABNORM NEC 05/27/2017 ZAIN GASPAR FACC, ALI FACP CCDS Ot 786.50 CHEST PAIN NOS 05/27/2017 ZAIN GASPAR FACC, ALI FACP CCDS Ot 250.00 DIAB YESSICA WO COMPL, TYPE II OR UNSPEC TY 05/27/2017 ZAIN GASPAR FACC, ALI FACP CCDS Ot 272.4 HYPERLIPIDEMIA NEC/NOS 05/27/2017 ZAIN GASPAR FACC, ALI FACP CCDS Ot 278.00 OBESITY, NOS 05/27/2017 ZAIN GASPAR FACC, ALI FACP CCDS Ot 401.9 HYPERTENSION NOS 05/27/2017 ZAIN GASPAR FACC, ALI FACP CCDS Ot 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 TYPE VESSEL, NATIV 05/27/2017 ZAIN GASPAR FACC, ALI FACP CCDS Ot 447.9 ARTERIAL DISEASE NOS 05/27/2017 ZAIN GASPAR FACC, ALI FACP CCDS Ot 530.81 ESOPHAGEAL REFLUX 05/27/2017 ZAIN GASPAR FACC, ALI FACP CCDS Ot 715.90 OSTEOARTHROS NOS-UNSPEC 05/27/2017 ZAIN GASPAR FACC, ALI FACP CCDS Ot 782.3 EDEMA 05/27/2017 ZAIN GASPAR FACC, ALI FACP CCDS Ot 786.09 RESPIRATORY ABNORM NEC 05/27/2017 ZAIN GASPAR FACC, ALI FACP CCDS Ot 786.50 CHEST PAIN NOS 05/27/2017 BIMAL BROWN MD Ot 595.2 CHRONIC CYSTITIS NEC 05/27/2017 CHANEL COTTO MD Ot 733.96 STRESS FRACTURE OF FEMORAL NECK 05/27/2017 CHANEL COTTO MD Ot V43.64 HIP JOINT REPLACEMENT STATUS 05/27/2017 ROSITA RIVERA DO Ot 611.71 MASTODYNIA 05/27/2017 ROSITA RIVERA DO Ot Z12.31 ENCNTR SCREEN MAMMOGRAM FOR MALIGNANT NE 05/27/2017 BIMAL BROWN MD Ot 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 05/27/2017 ZAIN GASPAR FACC, ALI FACP CCDS Ot E11.9 TYPE 2 DIABETES MELLITUS WITHOUT COMPLIC 05/27/2017 ZAIN MD FACC, ALI FACP CCDS Ot I25.10 ATHSCL HEART DISEASE OF [place] CORONARY 05/27/2017 ZAIN GASPAR FACC, ALI FACP CCDS Ot I65.23 OCCLUSION AND STENOSIS OF BILATERAL GABRIEL 05/27/2017 ZAIN GASPAR FACC, ALI FACP CCDS Ot R06.09 OTHER FORMS OF DYSPNEA 05/27/2017 ZAIN GASPAR FACC, ALI FACP CCDS Ot R07.89 OTHER CHEST PAIN 05/27/2017 ZAIN GASPAR FACC, ALI FACP CCDS Ot E11.9 TYPE 2 DIABETES MELLITUS WITHOUT COMPLIC 05/27/2017 ZAIN MD FACC, ALI FACP CCDS Ot I25.10 ATHSCL HEART DISEASE OF [place] CORONARY 05/27/2017 ZAIN GASPAR FACC, ALI FACP CCDS Ot I65.23 OCCLUSION AND STENOSIS OF BILATERAL GABRIEL 05/27/2017 ZAIN GASPAR FACC, ALI FACP CCDS Ot R06.09 OTHER FORMS OF DYSPNEA 05/27/2017 ZAIN GASPAR FACC, ALI FACP CCDS Ot R07.89 OTHER CHEST PAIN 05/27/2017 ROSITA RIVERA DO Ot Z12.31 ENCNTR SCREEN MAMMOGRAM FOR MALIGNANT NE 05/27/2017 ARNEL ALANIS MD Ot E04.2 NONTOXIC MULTINODULAR GOITER 05/27/2017 ARNEL ALANIS MD Ot R49.0 DYSPHONIA 05/27/2017 ARNEL ALANIS MD Ot R53.83 OTHER FATIGUE 05/27/2017 ARNEL ALANIS MD Ot R13.10 DYSPHAGIA, UNSPECIFIED 05/27/2017 ARNEL ALANIS MD Ot Z01.818 ENCOUNTER FOR OTHER PREPROCEDURAL EXAMIN 05/27/2017 ARNEL ALANIS MD Ot E04.1 NONTOXIC SINGLE THYROID NODULE 07/17/2017 ARNEL ALANIS MD Ot K25.9 GASTRIC ULCER, UNSP ACUTE OR CHRONIC, 07/17/2017 ARNEL ALANIS MD Ot Z01.818 ENCOUNTER FOR OTHER PREPROCEDURAL EXAMIN 07/18/2017 ALANIS MD, ARNEL M Ot K25.9 GASTRIC ULCER, UNSP ACUTE OR CHRONIC, 07/18/2017 ANNABELLE GASPAR, ARNEL [place] Ot Z01.818 ENCOUNTER FOR OTHER PREPROCEDURAL EXAMIN 07/23/2017 ANNABELLE GASPAR, ARNEL [place] Ot D74.9 METHEMOGLOBINEMIA, UNSPECIFIED 07/23/2017 ANNABELLE GASPAR, ARNEL [place] Ot E11.9 TYPE 2 DIABETES MELLITUS WITHOUT COMPLIC 07/23/2017 ARNEL ALANIS MD Ot E78.5 HYPERLIPIDEMIA, UNSPECIFIED 07/23/2017 ANNABELLE GASPAR, ARNEL [place] Ot F32.9 MAJOR DEPRESSIVE DISORDER, SINGLE EPISOD 07/23/2017 ANNABELLE GASPAR, ARNEL [place] Ot F41.9 ANXIETY DISORDER, UNSPECIFIED 07/23/2017 ARNEL ALANIS MD Ot F43.10 POST-TRAUMATIC STRESS DISORDER, UNSPECIF 07/23/2017 ANNABELLE GASPAR, ARNEL [place] Ot G43.909 MIGRAINE, UNSP, NOT INTRACTABLE, WITHOUT 07/23/2017 ARNEL ALANIS MD Ot I10 ESSENTIAL (PRIMARY) HYPERTENSION 07/23/2017 ARNEL ALANIS MD Ot I25.10 ATHSCL HEART DISEASE OF [place] CORONARY 07/23/2017 ARNEL ALANIS MD Ot K21.9 GASTRO-ESOPHAGEAL REFLUX DISEASE WITHOUT 07/23/2017 ARNEL ALANIS MD Ot K22.2 ESOPHAGEAL OBSTRUCTION 07/23/2017 ARNEL ALANIS MD Ot N39.0 URINARY TRACT INFECTION, SITE NOT SPECIF 07/23/2017 ARNEL ALANIS MD Ot Z79.82 DELICATESSEN CLERK (CURRENT) USE OF ASPIRIN 07/23/2017 ARNEL ALANIS MD Ot Z79.84 LONG-TERM (CURRENT) USE OF ORAL HYPOGLYC 07/23/2017 ARNEL ALANIS MD Ot Z79.899 OTHER DELICATESSEN CLERK (CURRENT) DRUG THERAPY 07/23/2017 ARNEL ALANIS MD Ot Z85.828 PERSONAL HISTORY OF OTHER MALIGNANT NEOP 07/23/2017 ARNEL ALANIS MD, Ot Z87.891 PERSONAL HISTORY OF NICOTINE DEPENDENCE 10/09/2017 ARNEL ALANIS MD Ot V72.84 EXAM PRE-OPERATIVE NOS 10/09/2017 CHANEL COTTO MD Ot 715.36 LOC OSTEOARTH NOS-L/LEG 10/09/2017 CHANEL COTTO MD, Ot V72.63 PRE-PROCEDURAL LABORATORY EXAMINATION 10/09/2017 YADIEL GASPAR, CHANEL Ramos Ot V72.83 EXAM PRE-OPERATIVE NEC 10/09/2017 SADIQ CHO WILDLIFE REFUGE SPECIALIST Ot V58.81 FIT/ADJ VASCULAR CATHETER 10/09/2017 Ot 041.3 KLEBSIELLA PNEUMONIAE 10/09/2017 Ot 599.0 URIN TRACT INFECTION NOS 10/09/2017 Ot 599.0 URIN TRACT INFECTION NOS 10/09/2017 Ot V58.81 FIT/ADJ VASCULAR CATHETER 10/09/2017 MARYAM AMINTA J MEASURER Ot 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, ASYMMETRICAL 10/09/2017 MARYAM AMINTA J MEASURER Ot 389.9 HEARING LOSS NOS 10/09/2017 FRIEDA BARTLETT WILDLIFE REFUGE SPECIALIST Ot V76.12 OTH SCREEN MAMMO-MALIGN NEOPLASM OF [place] 10/09/2017 ANNABELLE GASPAR, ARNEL [place] Ot 562.11 DIVERTICULITIS COLON (W/O MENT OF HEMORR 10/09/2017 ANNABELLE GASPAR, ARNEL M Ot 706.2 SEBACEOUS CYST 10/09/2017 ANNABELLE GASPAR, ARNEL [place] Ot 787.91 DIARRHEA 10/09/2017 ANNABELLE GASPAR, ARNEL M Ot 791.9 ABN URINE FINDINGS NEC 10/09/2017 ANNABELLE GASPAR, ARNEL [place] Ot V72.63 PRE-PROCEDURAL LABORATORY EXAMINATION 10/09/2017 ANNABELLE GASPAR, ARNEL M Ot V74.8 SCREEN-BACTERIAL DIS NEC 10/09/2017 BIMAL BROWN MD Ot 595.2 CHRONIC CYSTITIS NEC 10/09/2017 ZAIN GASPAR FACC, ALI FACP CCDS Ot 250.00 DIAB YESSICA WO COMPL, TYPE II OR UNSPEC TY 10/09/2017 ZAIN GASPAR FACC, ALI FACP CCDS Ot 272.4 HYPERLIPIDEMIA NEC/NOS 10/09/2017 ZAIN GASPAR FACC, ALI FACP CCDS Ot 401.9 HYPERTENSION NOS 10/09/2017 ZAIN GASPAR FACC, ALI FACP CCDS Ot 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 TYPE VESSEL, NATIV 10/09/2017 ZAIN GASPAR FACC, ALI FACP CCDS Ot 447.9 ARTERIAL DISEASE NOS 10/09/2017 ZAIN GASPAR FACC, ALI FACP CCDS Ot 786.09 RESPIRATORY ABNORM NEC 10/09/2017 ZAIN GASPAR FACC, ALI FACP CCDS Ot 786.50 CHEST PAIN NOS 10/09/2017 ZAIN SCHULERC, ALI FACP CCDS Ot 250.00 DIAB YESSICA WO COMPL, TYPE II OR UNSPEC TY 10/09/2017 ZAIN GASPAR FACC, ALI FACP CCDS Ot 272.4 HYPERLIPIDEMIA NEC/NOS 10/09/2017 ZAIN GASPAR FACC, ALI FACP CCDS Ot 278.00 OBESITY, NOS 10/09/2017 ZAIN SCHULERC, ALI FACP CCDS Ot 401.9 HYPERTENSION NOS 10/09/2017 ZAIN GASPAR FACC, ALI FACP CCDS Ot 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 TYPE VESSEL, NATIV 10/09/2017 ZAIN GASPAR FACC, ALI FACP CCDS Ot 447.9 ARTERIAL DISEASE NOS 10/09/2017 ZAIN GASPAR FACC, ALI FACP CCDS Ot 530.81 ESOPHAGEAL REFLUX 10/09/2017 ZAIN GASPAR FACC, ALI FACP CCDS Ot 715.90 OSTEOARTHROS NOS-UNSPEC 10/09/2017 ZAIN GASPAR FACC, ALI FACP CCDS Ot 782.3 EDEMA 10/09/2017 ZAIN GASPAR FACC, ALI FACP CCDS Ot 786.09 RESPIRATORY ABNORM NEC 10/09/2017 ZAIN GASPAR FACC, ALI FACP CCDS Ot 786.50 CHEST PAIN NOS 10/09/2017 BIMAL BROWN MD Ot 595.2 CHRONIC CYSTITIS NEC 10/09/2017 CHANEL COTTO MD Ot 733.96 STRESS FRACTURE OF FEMORAL NECK 10/09/2017 CHANEL COTTO MD Ot V43.64 HIP JOINT REPLACEMENT STATUS 10/09/2017 ROSITA RIVERA DO Ot 611.71 MASTODYNIA 10/09/2017 ROSITA RIVERA DO Ot Z12.31 ENCNTR SCREEN MAMMOGRAM FOR MALIGNANT NE 10/09/2017 BIMAL BROWN MD Ot 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 10/09/2017 ZAIN GASPAR FACC, ALI FACP CCDS Ot E11.9 TYPE 2 DIABETES MELLITUS WITHOUT COMPLIC 10/09/2017 ZAIN GASPAR FACC, ALI FACP CCDS Ot I25.10 ATHSCL HEART DISEASE OF [place] CORONARY 10/09/2017 ZAIN GASPAR FACC, ALI FACP CCDS Ot I65.23 OCCLUSION AND STENOSIS OF BILATERAL [place]ABRI[place] 10/09/2017 ZAIN GASPAR FACC, ALI FACP CCDS Ot R06.09 OTHER FORMS OF DYSPNEA 10/09/2017 ZAIN GASPAR FAC, ALI FACP CCDS Ot R07.89 OTHER CHEST PAIN 10/09/2017 ZAIN GASPAR FAC, ALI FACP CCDS Ot E11.9 TYPE 2 DIABETES MELLITUS WITHOUT COMPLIC 10/09/2017 ZAIN GASPAR FAC, ALI FACP CCDS Ot I25.10 ATHSCL HEART DISEASE OF [place] CORONARY 10/09/2017 ZAIN GASPAR FAC, ALI FACP CCDS Ot I65.23 OCCLUSION AND STENOSIS OF BILATERAL [place] 10/09/2017 ZAIN GASPAR FAC, ALI FACP CCDS Ot R06.09 OTHER FORMS OF DYSPNEA 10/09/2017 ZAIN SCHULER, ALI FACP CCDS Ot R07.89 OTHER CHEST PAIN 10/09/2017 ROSITA RIVERA DO Ot Z12.31 ENCNTR SCREEN MAMMOGRAM FOR MALIGNANT NE 10/09/2017 ANNABELLE GASPAR, ARNEL [place] Ot E04.2 NONTOXIC MULTINODULAR GOITER 10/09/2017 ANNABELLE GASPAR, ARNEL [place] Ot R49.0 DYSPHONIA 10/09/2017 ARNEL ALANIS MD Ot R53.83 OTHER FATIGUE 10/09/2017 ANNABELLE GASPAR, ARNEL [place] Ot R13.10 DYSPHAGIA, UNSPECIFIED 10/09/2017 ANNABELLE GASPAR, ARNEL [place] Ot Z01.818 ENCOUNTER FOR OTHER PREPROCEDURAL EXAMIN 10/09/2017 ANNABELLE GASPAR, ARNEL [place] Ot E04.1 NONTOXIC SINGLE THYROID NODULE 10/10/2017 HIRAL WOLF MD Ot G31.9 DEGENERATIVE DISEASE OF NERVOUS SYSTEM, 10/10/2017 HIRAL WOLF MD Ot I67.82 CEREBRAL ISCHEMIA 10/10/2017 HIRAL WOLF MD Ot G31.9 DEGENERATIVE DISEASE OF NERVOUS SYSTEM, 10/10/2017 HIRAL WOLF MD Ot I67.82 CEREBRAL ISCHEMIA 10/15/2017 HIRAL WOLF MD Ot G31.9 DEGENERATIVE DISEASE OF NERVOUS SYSTEM, 10/15/2017 HIRAL WOLF MD Ot I67.82 CEREBRAL ISCHEMIA 10/29/2017 HIRAL WOLF MD Ot G31.9 DEGENERATIVE DISEASE OF NERVOUS SYSTEM, 10/29/2017 HIRAL WOLF MD Ot I67.82 CEREBRAL ISCHEMIA 12/16/2017 CHANEL COTTO MD Ot M75.111 INCOMPLETE ROTATR-CUFF TEAR/RUPTR OF R S 12/19/2017 Ot E55.9 VITAMIN D DEFICIENCY, UNSPECIFIED 12/19/2017 Ot M25.511 PAIN IN RIGHT SHOULDER 12/19/2017 Ot R30.0 DYSURIA 12/19/2017 Ot R53.83 OTHER FATIGUE 01/03/2018 CHANEL COTTO MD Ot M75.111 INCOMPLETE ROTATR-CUFF TEAR/RUPTR OF R S 01/10/2018 ROSITA RIVERA DO Ot Z12.31 ENCNTR SCREEN MAMMOGRAM FOR MALIGNANT NE 01/16/2018 Ot E55.9 VITAMIN D DEFICIENCY, UNSPECIFIED 01/16/2018 Ot M25.511 PAIN IN RIGHT SHOULDER 01/16/2018 Ot R30.0 DYSURIA 01/16/2018 Ot R53.83 OTHER FATIGUE 01/24/2018 CHANEL COTTO MD Ot M75.111 INCOMPLETE ROTATR-CUFF TEAR/RUPTR OF R S 01/29/2018 ROSITA RIVERA DO Ot Z12.31 ENCNTR SCREEN MAMMOGRAM FOR MALIGNANT NE 02/04/2018 LIANG GASPAR, MARCELO Horowitz Ot N18.3 CHRONIC KIDNEY DISEASE, STAGE 3 (MODERAT 02/04/2018 LIANG GASPAR, MARCELO Horowitz Ot N28.1 CYST OF KIDNEY, ACQUIRED 02/25/2018 SADIQ CHO Ot N39.0 URINARY TRACT INFECTION, SITE NOT SPECIF 03/17/2018 SADIQ CHO Ot N39.0 URINARY TRACT INFECTION, SITE NOT SPECIF 05/14/2018 Ot 041.3 KLEBSIELLA PNEUMONIAE 05/14/2018 Ot 599.0 URIN TRACT INFECTION NOS 05/14/2018 Ot 599.0 URIN TRACT INFECTION NOS 05/14/2018 Ot V58.81 FIT/ADJ VASCULAR CATHETER 05/15/2018 CHANEL COTTO MD Ot Z01.818 ENCOUNTER FOR OTHER PREPROCEDURAL EXAMIN 05/21/2018 CHANEL COTTO MD Ot E03.9 HYPOTHYROIDISM, UNSPECIFIED 05/21/2018 CHANEL COTTO MD Ot E11.9 TYPE 2 DIABETES MELLITUS WITHOUT COMPLIC 05/21/2018 CHANEL COTTO MD Ot F17.210 NICOTINE DEPENDENCE, CIGARETTES, UNCOMPL 05/21/2018 CHANEL COTTO MD, Ot F32.9 MAJOR DEPRESSIVE DISORDER, SINGLE EPISOD 05/21/2018 CHANEL COTTO MD, Ot F41.9 ANXIETY DISORDER, UNSPECIFIED 05/21/2018 CHANEL COTTO MD, Ot F43.10 POST-TRAUMATIC STRESS DISORDER, UNSPECIF 05/21/2018 CHANEL COTTO MD, Ot I10 ESSENTIAL (PRIMARY) HYPERTENSION 05/21/2018 CHANEL COTTO MD, Ot K21.9 GASTRO-ESOPHAGEAL REFLUX DISEASE WITHOUT 05/21/2018 CHANEL COTTO MD, Ot M06.9 RHEUMATOID ARTHRITIS, UNSPECIFIED 05/21/2018 CHANEL COTTO MD, Ot M19.91 PRIMARY OSTEOARTHRITIS, UNSPECIFIED SITE 05/21/2018 CHANEL COTTO MD, Ot M75.101 UNSP ROTATR-CUFF TEAR/RUPTR OF RIGHT ANNA 05/21/2018 CHANEL COTTO MD Ot Z79.4 DELICATESSEN CLERK (CURRENT) USE OF INSULIN 05/21/2018 CHANEL COTTO MD, Ot Z79.82 LONG-TERM (CURRENT) USE OF ASPIRIN 05/21/2018 CHANEL COTTO MD, Ot Z79.899 OTHER DELICATESSEN CLERK (CURRENT) DRUG THERAPY 05/21/2018 CHANEL COTTO MD, Ot Z88.0 ALLERGY STATUS TO PENICILLIN 05/21/2018 CHANEL COTTO MD Ot Z88.1 ALLERGY STATUS TO OTHER ANTIBIOTIC AGENT 05/21/2018 CHANEL COTTO MD Ot Z88.8 ALLERGY STATUS TO OTH DRUG/MEDS/BIOL SUB 05/21/2018 CHANEL COTTO MD Ot Z96.643 PRESENCE OF ARTIFICIAL HIP JOINT, BILATE 05/21/2018 CHANEL COTTO MD Ot Z96.653 PRESENCE OF ARTIFICIAL KNEE JOINT, BILAT 05/22/2018 CHANEL COTTO MD Ot E03.9 HYPOTHYROIDISM, UNSPECIFIED 05/22/2018 CHANEL COTTO MD Ot E11.9 TYPE 2 DIABETES MELLITUS WITHOUT COMPLIC 05/22/2018 CHANEL COTTO MD Ot F17.210 NICOTINE DEPENDENCE, CIGARETTES, UNCOMPL 05/22/2018 CHANEL COTTO MD, Ot F32.9 MAJOR DEPRESSIVE DISORDER, SINGLE EPISOD 05/22/2018 CHANEL COTTO MD, Ot F41.9 ANXIETY DISORDER, UNSPECIFIED 05/22/2018 CHANEL COTTO MD, Ot F43.10 POST-TRAUMATIC STRESS DISORDER, UNSPECIF 05/22/2018 CHANEL COTTO MD, Ot I10 ESSENTIAL (PRIMARY) HYPERTENSION 05/22/2018 CHANEL COTTO MD, Ot K21.9 GASTRO-ESOPHAGEAL REFLUX DISEASE WITHOUT 05/22/2018 CHANEL COTTO MD, Ot M06.9 RHEUMATOID ARTHRITIS, UNSPECIFIED 05/22/2018 CHANEL COTTO MD, Ot M19.91 PRIMARY OSTEOARTHRITIS, UNSPECIFIED SITE 05/22/2018 CHANEL COTTO MD, Ot M75.101 UNSP ROTATR-CUFF TEAR/RUPTR OF RIGHT ANNA 05/22/2018 CHANEL COTTO MD, Ot Z79.4 LONG-TERM (CURRENT) USE OF INSULIN 05/22/2018 CHANEL COTTO MD, Ot Z79.82 DELICATESSEN CLERK (CURRENT) USE OF ASPIRIN 05/22/2018 CHANEL COTTO MD, Ot Z79.899 OTHER DELICATESSEN CLERK (CURRENT) DRUG THERAPY 05/22/2018 CHANEL COTTO MD, Ot Z88.0 ALLERGY STATUS TO PENICILLIN 05/22/2018 CHANEL COTTO MD, Ot Z88.1 ALLERGY STATUS TO OTHER ANTIBIOTIC AGENT 05/22/2018 CHANEL COTTO MD, Ot Z88.8 ALLERGY STATUS TO OTH DRUG/MEDS/BIOL SUB 05/22/2018 CHANEL COTTO MD Ot Z96.643 PRESENCE OF ARTIFICIAL HIP JOINT, BILATE 05/22/2018 CHANEL COTTO MD, Ot Z96.653 PRESENCE OF ARTIFICIAL KNEE JOINT, BILAT 05/23/2018 CHANEL COTTO MD Ot E03.9 HYPOTHYROIDISM, UNSPECIFIED 05/23/2018 CHANEL COTTO MD, Ot E11.9 TYPE 2 DIABETES MELLITUS WITHOUT COMPLIC 05/23/2018 CHANEL COTTO MD, Ot F17.210 NICOTINE DEPENDENCE, CIGARETTES, UNCOMPL 05/23/2018 CHANEL COTTO MD, Ot F32.9 MAJOR DEPRESSIVE DISORDER, SINGLE EPISOD 05/23/2018 CHANEL COTTO MD, Ot F41.9 ANXIETY DISORDER, UNSPECIFIED 05/23/2018 CHANEL COTTO MD, Ot F43.10 POST-TRAUMATIC STRESS DISORDER, UNSPECIF 05/23/2018 ZAFUTA MD, CHANEL P Ot I10 ESSENTIAL (PRIMARY) HYPERTENSION 05/23/2018 CHANEL COTTO MD, Ot K21.9 GASTRO-ESOPHAGEAL REFLUX DISEASE WITHOUT 05/23/2018 CHANEL COTTO MD, Ot M06.9 RHEUMATOID ARTHRITIS, UNSPECIFIED 05/23/2018 CHANEL COTTO MD, Ot M19.91 PRIMARY OSTEOARTHRITIS, UNSPECIFIED SITE 05/23/2018 CHANEL COTTO MD, Ot M75.101 UNSP ROTATR-CUFF TEAR/RUPTR OF RIGHT ANNA 05/23/2018 CHANEL COTTO MD, Ot Z79.4 DELICATESSEN CLERK (CURRENT) USE OF INSULIN 05/23/2018 CHANEL COTTO MD, Ot Z79.82 DELICATESSEN CLERK (CURRENT) USE OF ASPIRIN 05/23/2018 CHANEL COTTO MD, Ot Z79.899 OTHER LONG-TERM (CURRENT) DRUG THERAPY 05/23/2018 CHANEL COTTO MD, Ot Z88.0 ALLERGY STATUS TO PENICILLIN 05/23/2018 CHANEL COTTO MD, Ot Z88.1 ALLERGY STATUS TO OTHER ANTIBIOTIC AGENT 05/23/2018 CHANEL COTTO MD, Ot Z88.8 ALLERGY STATUS TO OTH DRUG/MEDS/BIOL SUB 05/23/2018 CHANEL COTTO MD, Ot Z96.643 PRESENCE OF ARTIFICIAL HIP JOINT, BILATE 05/23/2018 CHANEL COTTO MD, Ot Z96.653 PRESENCE OF ARTIFICIAL KNEE JOINT, BILAT 05/28/2018 CHANEL COTTO MD, Ot E11.9 TYPE 2 DIABETES MELLITUS WITHOUT COMPLIC 05/28/2018 CHANEL COTTO MD, Ot F32.9 MAJOR DEPRESSIVE DISORDER, SINGLE EPISOD 05/28/2018 CHANEL COTTO MD Ot I10 ESSENTIAL (PRIMARY) HYPERTENSION 05/28/2018 CHANEL COTTO MD, Ot M06.9 RHEUMATOID ARTHRITIS, UNSPECIFIED 05/28/2018 CHANEL COTTO MD, Ot M25.511 PAIN IN RIGHT SHOULDER 05/28/2018 CHANEL COTTO MD, Ot M81.0 AGE-RELATED OSTEOPOROSIS W/O CURRENT PAT 05/28/2018 CHANEL COTTO MD, Ot Z47.89 ENCOUNTER FOR OTHER ORTHOPEDIC AFTERCARE 06/12/2018 CHANEL COTTO MD, Ot E11.9 TYPE 2 DIABETES MELLITUS WITHOUT COMPLIC 06/12/2018 ZAFUTA MD, CHANEL P Ot F32.9 MAJOR DEPRESSIVE DISORDER, SINGLE EPISOD 06/12/2018 CHANEL COTTO MD Ot I10 ESSENTIAL (PRIMARY) HYPERTENSION 06/12/2018 CHANEL COTTO MD Ot M06.9 RHEUMATOID ARTHRITIS, UNSPECIFIED 06/12/2018 CHANEL COTTO MD Ot M25.511 PAIN IN RIGHT SHOULDER 06/12/2018 CHANEL COTTO MD Ot M81.0 AGE-RELATED OSTEOPOROSIS W/O CURRENT PAT 06/12/2018 CHANEL COTTO MD Ot Z47.89 ENCOUNTER FOR OTHER ORTHOPEDIC AFTERCARE 06/20/2018 CHANEL COTTO MD Ot E11.9 TYPE 2 DIABETES MELLITUS WITHOUT COMPLIC 06/20/2018 CHANEL COTTO MD Ot F32.9 MAJOR DEPRESSIVE DISORDER, SINGLE EPISOD 06/20/2018 CHANEL COTTO MD Ot I10 ESSENTIAL (PRIMARY) HYPERTENSION 06/20/2018 CHANEL COTTO MD Ot M06.9 RHEUMATOID ARTHRITIS, UNSPECIFIED 06/20/2018 CHANEL COTTO MD Ot M25.511 PAIN IN RIGHT SHOULDER 06/20/2018 CHANEL COTTO MD Ot M81.0 AGE-RELATED OSTEOPOROSIS W/O CURRENT PAT 06/20/2018 CHANEL COTTO MD Ot Z47.89 ENCOUNTER FOR OTHER ORTHOPEDIC AFTERCARE 07/10/2018 ZAIN GASPAR FACC, JENNIFER FACP CCDS Ot R07.89 OTHER CHEST PAIN 07/14/2018 ZAIN GASPAR FACC, JENNIFER FACP CCDS Ot E78.5 HYPERLIPIDEMIA, UNSPECIFIED 07/14/2018 ZAIN GASPAR FACC, JENNIFER FACP CCDS Ot I10 ESSENTIAL (PRIMARY) HYPERTENSION 07/14/2018 ZAIN GASPAR FACC, JENNIFER FACP CCDS Ot I25.10 ATHSCL HEART DISEASE OF [place] CORONARY 07/14/2018 ZAIN GASPAR FACC, ALI FACP CCDS Ot I73.9 PERIPHERAL VASCULAR DISEASE, UNSPECIFIED 07/14/2018 ZAIN GASPAR FACC, JENNIFER FACP CCDS Ot I77.9 DISORDER OF ARTERIES AND ARTERIOLES, UNS 07/14/2018 ZAIN GASPAR FACC, JENNIFER FACP CCDS Ot R07.9 CHEST PAIN, UNSPECIFIED 07/14/2018 ZAIN GASPAR FACC, JENNIFER FACP CCDS Ot R47.81 SLURRED SPEECH 07/31/2018 ZAIN GASPAR FACC, ALI FACP CCDS Ot E78.5 HYPERLIPIDEMIA, UNSPECIFIED 07/31/[address] [facility], ALI FACP CCDS Ot I10 ESSENTIAL (PRIMARY) HYPERTENSION 07/31/[address] [facility], ALI FACP CCDS Ot I25.10 ATHSCL HEART DISEASE OF [place] CORONARY 07/31/[address] [facility], ALI FACP CCDS Ot I73.9 PERIPHERAL VASCULAR DISEASE, UNSPECIFIED 07/31/[address] [facility], ALI FACP CCDS Ot I77.9 DISORDER OF ARTERIES AND ARTERIOLES, UNS 07/31/[address] [facility], ALI FACP CCDS Ot R07.9 CHEST PAIN, UNSPECIFIED 07/31/[address] [facility], ALI FACP CCDS Ot R47.81 SLURRED SPEECH 08/21/2018 CHANEL COTTO MD Ot E11.9 TYPE 2 DIABETES MELLITUS WITHOUT COMPLIC 08/21/2018 CHANEL COTTO MD Ot F32.9 MAJOR DEPRESSIVE DISORDER, SINGLE EPISOD 08/21/2018 CHANEL COTTO MD Ot I10 ESSENTIAL (PRIMARY) HYPERTENSION 08/21/2018 CHANEL COTTO MD Ot M06.9 RHEUMATOID ARTHRITIS, UNSPECIFIED 08/21/2018 CHANEL COTTO MD Ot M25.511 PAIN IN RIGHT SHOULDER 08/21/2018 CHANEL COTTO MD Ot M81.0 AGE-RELATED OSTEOPOROSIS W/O CURRENT PAT 08/21/2018 CHANEL COTTO MD Ot Z47.89 ENCOUNTER FOR OTHER ORTHOPEDIC AFTERCARE 08/22/2018 CHANEL COTTO MD Ot E11.9 TYPE 2 DIABETES MELLITUS WITHOUT COMPLIC 08/22/2018 CHANEL COTTO MD Ot F32.9 MAJOR DEPRESSIVE DISORDER, SINGLE EPISOD 08/22/2018 CHANEL COTTO MD Ot I10 ESSENTIAL (PRIMARY) HYPERTENSION 08/22/2018 CHANEL COTTO MD Ot M06.9 RHEUMATOID ARTHRITIS, UNSPECIFIED 08/22/2018 CHANEL COTTO MD Ot M25.511 PAIN IN RIGHT SHOULDER 08/22/2018 CHANEL COTTO MD Ot M81.0 AGE-RELATED OSTEOPOROSIS W/O CURRENT PAT 08/22/2018 CHANEL COTTO MD Ot Z47.89 ENCOUNTER FOR OTHER ORTHOPEDIC AFTERCARE 09/12/2018 ROSA FLORES DO Ot E03.9 HYPOTHYROIDISM, UNSPECIFIED 09/12/2018 MARK ROSA MOELLER Ot E11.9 TYPE 2 DIABETES MELLITUS WITHOUT COMPLIC 09/12/2018 MARK ROSA MOELLER Ot E83.42 HYPOMAGNESEMIA 09/12/2018 MARK ROSA MOELLER Ot F32.9 MAJOR DEPRESSIVE DISORDER, SINGLE EPISOD 09/12/2018 MARK ROSA MOELLER Ot F41.9 ANXIETY DISORDER, UNSPECIFIED 09/12/2018 MARK ROSA MOELLER Ot F43.10 POST-TRAUMATIC STRESS DISORDER, UNSPECIF 09/12/2018 MARK ROSA MOELLER Ot G43.909 MIGRAINE, UNSP, NOT INTRACTABLE, WITHOUT 09/12/2018 MARK ANNA MARIE MOELLERA Erma Ot I10 ESSENTIAL (PRIMARY) HYPERTENSION 09/12/2018 MCCARLEY ROSA MOELLER Ot K21.9 GASTRO-ESOPHAGEAL REFLUX DISEASE WITHOUT 09/12/2018 MARK ROSA MOELLER Ot K52.9 NONINFECTIVE GASTROENTERITIS AND COLITIS 09/12/2018 MARK ROSA MOELLER Ot N39.0 URINARY TRACT INFECTION, SITE NOT SPECIF 09/12/2018 MARK ROSA MOELLER Ot R11.2 NAUSEA WITH VOMITING, UNSPECIFIED 09/12/2018 MARK ROSA MOELLER Ot Z79.82 LONG-TERM (CURRENT) USE OF ASPIRIN 09/12/2018 MARK ROSA MOELLER Ot Z79.84 DELICATESSEN CLERK (CURRENT) USE OF ORAL HYPOGLYC 09/12/2018 MARK ROSA MOELLER Ot Z82.49 FAMILY HX OF ISCHEM HEART DIS AND OTH DI 09/12/2018 ROSA FLORES DO Ot Z85.828 PERSONAL HISTORY OF OTHER MALIGNANT NEOP 09/12/2018 MARK ROSA MOELLER Ot Z87.19 PERSONAL HISTORY OF OTHER DISEASES OF TH 09/12/2018 ROSA FLORES DO Ot Z87.440 PERSONAL HISTORY OF URINARY (TRACT) INFE 09/12/2018 ROSA FLORES DO Ot Z87.891 PERSONAL HISTORY OF NICOTINE DEPENDENCE 09/12/2018 MARK ROSA MOELLER Ot Z88.0 ALLERGY STATUS TO PENICILLIN 09/12/2018 ROSA FLORES DO Ot Z88.1 ALLERGY STATUS TO OTHER ANTIBIOTIC AGENT 09/12/2018 MARK ROSA MOELLER Ot Z88.2 ALLERGY STATUS TO SULFONAMIDES STATUS 09/12/2018 MARK ROSA Erma Ot Z88.5 ALLERGY STATUS TO NARCOTIC AGENT STATUS 09/12/2018 MARK ROSA MOELLER Ot Z88.6 ALLERGY STATUS TO ANALGESIC AGENT STATUS 09/12/2018 MARK ROSA MOELLER Ot Z90.710 ACQUIRED ABSENCE OF BOTH CERVIX AND UTER 09/12/2018 MARK ROSA MOELLER Ot Z90.89 ACQUIRED ABSENCE OF OTHER ORGANS 09/12/2018 MARK ROSA MOELLER Ot Z91.041 RADIOGRAPHIC DYE ALLERGY STATUS 09/12/2018 MARK ROSA MOELLER Ot Z91.048 OTHER NONMEDICINAL SUBSTANCE ALLERGY STA 09/12/2018 MARK ROSA MOELLER Ot Z96.643 PRESENCE OF ARTIFICIAL HIP JOINT, BILATE 09/12/2018 MARK ROSA MOELLER Ot Z96.653 PRESENCE OF ARTIFICIAL KNEE JOINT, BILAT 09/12/2018 MARK ROSA MOELLER Ot Z98.890 OTHER SPECIFIED POSTPROCEDURAL STATES 09/15/2018 ROSA FLORES DO Ot E03.9 HYPOTHYROIDISM, UNSPECIFIED 09/15/2018 MARK ROSA MOELLER Ot E11.9 TYPE 2 DIABETES MELLITUS WITHOUT COMPLIC 09/15/2018 ROSA FLORES DO Ot E83.42 HYPOMAGNESEMIA 09/15/2018 MARK ROSA MOELLER Ot F32.9 MAJOR DEPRESSIVE DISORDER, SINGLE EPISOD 09/15/2018 MARK ROSA MOELLER Ot F41.9 ANXIETY DISORDER, UNSPECIFIED 09/15/2018 MARK ROSA MOELLER Ot F43.10 POST-TRAUMATIC STRESS DISORDER, UNSPECIF 09/15/2018 MARK ROSA MOELLER Ot G43.909 MIGRAINE, UNSP, NOT INTRACTABLE, WITHOUT 09/15/2018 MARK MOELLER ROSA K Ot I10 ESSENTIAL (PRIMARY) HYPERTENSION 09/15/2018 MARK ANNA MARIE MOELLERA Erma Ot K21.9 GASTRO-ESOPHAGEAL REFLUX DISEASE WITHOUT 09/15/2018 MARK ANNA MARIE MOELLERA Erma Ot K52.9 NONINFECTIVE GASTROENTERITIS AND COLITIS 09/15/2018 MARK ANNA MARIE MOELLERA Erma Ot N39.0 URINARY TRACT INFECTION, SITE NOT SPECIF 09/15/2018 ROSA FLORES DO Ot R11.2 NAUSEA WITH VOMITING, UNSPECIFIED 09/15/2018 MARK ROSA MOELLER Ot Z79.82 LONG-TERM (CURRENT) USE OF ASPIRIN 09/15/2018 MARK ROSA MOELLER Ot Z79.84 DELICATESSEN CLERK (CURRENT) USE OF ORAL HYPOGLYC 09/15/2018 MARK ROSA MOELLER Ot Z82.49 FAMILY HX OF ISCHEM HEART DIS AND OTH DI 09/15/2018 ROSA FLORES DO Ot Z85.828 PERSONAL HISTORY OF OTHER MALIGNANT NEOP 09/15/2018 MARK ROSA MOELLER Ot Z87.19 PERSONAL HISTORY OF OTHER DISEASES OF TH 09/15/2018 MARK ROSA MOELLER Ot Z87.440 PERSONAL HISTORY OF URINARY (TRACT) INFE 09/15/2018 MARK ROSA MOELLER Ot Z87.891 PERSONAL HISTORY OF NICOTINE DEPENDENCE 09/15/2018 MARK ROSA MOELLER Ot Z88.0 ALLERGY STATUS TO PENICILLIN 09/15/2018 MARK ROSA MOELLER Ot Z88.1 ALLERGY STATUS TO OTHER ANTIBIOTIC AGENT 09/15/2018 MARK ROSA MOELLER Ot Z88.2 ALLERGY STATUS TO SULFONAMIDES STATUS 09/15/2018 MARK ROSA MOELLER Ot Z88.5 ALLERGY STATUS TO NARCOTIC AGENT STATUS 09/15/2018 MARK ROSA MOELLER Ot Z88.6 ALLERGY STATUS TO ANALGESIC AGENT STATUS 09/15/2018 MARK ROSA MOELLER Ot Z90.710 ACQUIRED ABSENCE OF BOTH CERVIX AND UTER 09/15/2018 MARK ROSA MOELLER Ot Z90.89 ACQUIRED ABSENCE OF OTHER ORGANS 09/15/2018 ROSA FLORES DO Ot Z91.041 RADIOGRAPHIC DYE ALLERGY STATUS 09/15/2018 MARK ROSA MOELLER Ot Z91.048 OTHER NONMEDICINAL SUBSTANCE ALLERGY STA 09/15/2018 MARK ROSA MOELLER Ot Z96.643 PRESENCE OF ARTIFICIAL HIP JOINT, BILATE 09/15/2018 ROSA FLORES DO Ot Z96.653 PRESENCE OF ARTIFICIAL KNEE JOINT, BILAT 09/15/2018 MARK ROSA MOELLER Ot Z98.890 OTHER SPECIFIED POSTPROCEDURAL STATES Procedures Code Description Performed By Performed On 81.54 TOTAL KNEE REPLACEMENT 08/13/2012 Results Test Result Range Complete blood count (CBC) with automated white blood cell (WBC) differential - 01/31/16 10:20 Blood leukocytes automated count (number/volume) 7.4 10*3/uL 4.3-11.0 Blood erythrocytes automated count (number/volume) 4.59 10*6/uL 4.35-5.85 Venous blood hemoglobin measurement (mass/volume) 13.5 g/dL 11.5-16.0 Blood hematocrit (volume fraction) 43 % 35-52 Automated erythrocyte mean corpuscular volume 93 [foz_us] 80-99 Automated erythrocyte mean corpuscular hemoglobin (mass per erythrocyte) 29 pg 25-34 Automated erythrocyte mean corpuscular hemoglobin concentration measurement (mass/volume) 32 g/dL 32-36 Automated erythrocyte distribution width ratio 14.6 % 10.0- 14.5 Automated blood platelet count (count/volume) 277 10*3/uL 130-400 Automated blood platelet mean volume measurement 10.2 [foz_us] 7.4-10.4 Automated blood neutrophils/100 leukocytes 74 % 42-75 Automated blood lymphocytes/100 leukocytes 14 % 12-44 Blood monocytes/100 leukocytes 8 % 0-12 Automated blood eosinophils/100 leukocytes 4 % 0-10 Automated blood basophils/100 leukocytes 1 % 0-10 Blood neutrophils automated count (number/volume) 5.4 10*3 1.8-7.8 Blood lymphocytes automated count (number/volume) 1.0 10*3 1.0-4.0 Blood monocytes automated count (number/volume) 0.6 10*3 0.0- 1.0 Automated eosinophil count 0.3 10*3/uL 0.0-0.3 Automated blood basophil count (count/volume) 0.1 10*3/uL 0.0-0.1 Whole blood basic metabolic panel - 01/31/16 10:20 Serum or plasma sodium measurement (moles/volume) 141 mmol/L 135-145 Serum or plasma potassium measurement (moles/volume) 4.0 mmol/L 3.6-5.0 Serum or plasma chloride measurement (moles/volume) 102 mmol/L 98-107 Carbon dioxide 25 mmol/L 21-32 Serum or plasma anion gap determination (moles/volume) 14 mmol/L 5-14 Serum or plasma urea nitrogen measurement (mass/volume) 25 mg/dL 7-18 Serum or plasma creatinine measurement (mass/volume) 1.07 mg/dL 0.60-1.30 Serum or plasma urea nitrogen/creatinine mass ratio 23 NRG Serum or plasma creatinine measurement with calculation of estimated glomerular filtration rate 50 NRG Serum or plasma glucose measurement (mass/volume) 128 mg/dL 70-105 Serum or plasma calcium measurement (mass/volume) 10.2 mg/dL 8.5-10.1 Blood type T Indirect antibody screen panel - 01/31/16 10:20 ABO+Rh group OP NRG Blood group antibody screen NEGATIVE NRG Methicillin resistant Staphylococcus aureus (MRSA) screening culture - 01/31/16 10:20 Methicillin resistant Staphylococcus aureus (MRSA) screening culture NEG NRG Capillary blood glucose measurement by glucometer (mass/volume) - 02/07/16 06:28 Capillary blood glucose measurement by glucometer (mass/volume) 181 mg/dL 70-110 Blood type T Indirect antibody screen panel - 02/07/16 06:30 ABO+Rh group OP NRG Transfusion band number [id number] NRG Blood group antibody screen NEGATIVE NRG Capillary blood glucose measurement by glucometer (mass/volume) - 02/07/16 12:00 Capillary blood glucose measurement by glucometer (mass/volume) 128 mg/dL 70-110 Capillary blood glucose measurement by glucometer (mass/volume) - 02/07/16 14:59 Capillary blood glucose measurement by glucometer (mass/volume) 132 mg/dL 70-110 Capillary blood glucose measurement by glucometer (mass/volume) - 02/07/16 20:58 Capillary blood glucose measurement by glucometer (mass/volume) 145 mg/dL 70-110 Blood CBC with ordered manual differential panel - 02/08/16 06:27 Blood leukocytes automated count (number/volume) 10.8 10*3/uL 4.3-11.0 Blood erythrocytes automated count (number/volume) 3.59 10*6/uL 4.35-5.85 Venous blood hemoglobin measurement (mass/volume) 10.7 g/dL 11.5-16.0 Blood hematocrit (volume fraction) 34 % 35-52 Automated erythrocyte mean corpuscular volume 95 [foz_us] 80-99 Automated erythrocyte mean corpuscular hemoglobin (mass per erythrocyte) 30 pg 25-34 Automated erythrocyte mean corpuscular hemoglobin concentration measurement (mass/volume) 31 g/dL 32-36 Automated erythrocyte distribution width ratio 14.9 % 10.0- 14.5 Automated blood platelet count (count/volume) 203 10*3/uL 130-400 Automated blood platelet mean volume measurement 9.4 [foz_us] 7.4-10.4 Automated blood neutrophils/100 leukocytes 87 % 42-75 Automated blood lymphocytes/100 leukocytes 4 % 12-44 Blood monocytes/100 leukocytes 5 % NRG Automated blood eosinophils/100 leukocytes 3 % 0-10 Automated blood basophils/100 leukocytes 0 % 0-10 Blood neutrophils automated count (number/volume) 9.4 10*3 1.8-7.8 Blood lymphocytes automated count (number/volume) 0.5 10*3 1.0-4.0 Blood monocytes automated count (number/volume) 0.6 10*3 0.0- 1.0 Automated eosinophil count 0.3 10*3/uL 0.0-0.3 Automated blood basophil count (count/volume) 0.0 10*3/uL 0.0-0.1 Manual blood segmented neutrophils/100 leukocytes 74 % NRG Blood band neutrophils/100 leukocytes 17 % NRG Manual blood lymphocytes/100 leukocytes 2 % NRG Manual eosinophils/100 leukocytes in nose 2 % NRG Manual blood basophils/100 leukocytes 0 % NRG Blood anisocytosis detection by light microscopy SLIGHT NRG Capillary blood glucose measurement by glucometer (mass/volume) - 02/08/16 11:38 Capillary blood glucose measurement by glucometer (mass/volume) 115 mg/dL 70-110 [id number] - 07/19/16 06:59 Serum or plasma urea nitrogen measurement (mass/volume) 20 mg/dL 7-18 Serum or plasma creatinine measurement (mass/volume) 0.96 mg/dL 0.60-1.30 Serum or plasma urea nitrogen/creatinine mass ratio 21 NRG Serum or plasma creatinine measurement with calculation of estimated glomerular filtration rate 56 NRG Complete blood count (CBC) with automated white blood cell (WBC) differential - 02/27/17 19:10 Blood leukocytes automated count (number/volume) 7.6 10*3/uL 4.3-11.0 Blood erythrocytes automated count (number/volume) 4.19 10*6/uL 4.35-5.85 Venous blood hemoglobin measurement (mass/volume) 12.3 g/dL 11.5-16.0 Blood hematocrit (volume fraction) 38 % 35-52 Automated erythrocyte mean corpuscular volume 91 [foz_us] 80-99 Automated erythrocyte mean corpuscular hemoglobin (mass per erythrocyte) 29 pg 25-34 Automated erythrocyte mean corpuscular hemoglobin concentration measurement (mass/volume) 33 g/dL 32-36 Automated erythrocyte distribution width ratio 14.6 % 10.0- 14.5 Automated blood platelet count (count/volume) 258 10*3/uL 130-400 Automated blood platelet mean volume measurement 9.9 [foz_us] 7.4-10.4 Automated blood neutrophils/100 leukocytes 71 % 42-75 Automated blood lymphocytes/100 leukocytes 14 % 12-44 Blood monocytes/100 leukocytes 10 % 0-12 Automated blood eosinophils/100 leukocytes 4 % 0-10 Automated blood basophils/100 leukocytes 1 % 0-10 Blood neutrophils automated count (number/volume) 5.4 10*3 1.8-7.8 Blood lymphocytes automated count (number/volume) 1.1 10*3 1.0-4.0 Blood monocytes automated count (number/volume) 0.8 10*3 0.0- 1.0 Automated eosinophil count 0.3 10*3/uL 0.0-0.3 Automated blood basophil count (count/volume) 0.0 10*3/uL 0.0-0.1 Comprehensive metabolic panel - 02/27/17 19:10 Serum or plasma sodium measurement (moles/volume) 139 mmol/L 135-145 Serum or plasma potassium measurement (moles/volume) 4.3 mmol/L 3.6-5.0 Serum or plasma chloride measurement (moles/volume) 103 mmol/L 98-107 Carbon dioxide 24 mmol/L 21-32 Serum or plasma anion gap determination (moles/volume) 12 mmol/L 5-14 Serum or plasma urea nitrogen measurement (mass/volume) 21 mg/dL 7-18 Serum or plasma creatinine measurement (mass/volume) 0.91 mg/dL 0.60-1.30 Serum or plasma urea nitrogen/creatinine mass ratio 23 NRG Serum or plasma creatinine measurement with calculation of estimated glomerular filtration rate 60 NRG Serum or plasma glucose measurement (mass/volume) 145 mg/dL 70-105 Serum or plasma calcium measurement (mass/volume) 10.0 mg/dL 8.5-10.1 Serum or plasma total bilirubin measurement (mass/volume) 0.3 mg/dL 0.1-1.0 Serum or plasma alkaline phosphatase measurement (enzymatic activity/volume) 54 U/L 40-136 Serum or plasma aspartate aminotransferase measurement (enzymatic activity/volume) 18 U/L 5-34 Serum or plasma alanine aminotransferase measurement (enzymatic activity/volume) 14 U/L 0-55 Serum or plasma protein measurement (mass/volume) 7.4 g/dL 6.4-8.2 Serum or plasma albumin measurement (mass/volume) 3.7 g/dL 3.2-4.5 Serum or plasma troponin i.cardiac measurement (mass/volume) - 02/27/17 19:10 Serum or plasma troponin i.cardiac measurement (mass/volume) < ng/mL <0.30 PT panel in platelet poor plasma by coagulation assay - 02/27/17 20:20 Prothrombin time (PT) in platelet poor plasma by coagulation assay 13.1 s 12.2-14.7 INR in platelet poor plasma or blood by coagulation assay 1.0 0.8-1.4 Activated partial thromboplastin time (aPTT) in platelet poor plasma bycoagulation assay - 02/27/17 20:20 Activated partial thromboplastin time (aPTT) in platelet poor plasma bycoagulation assay 27 s 24-35 Complete blood count (CBC) with automated white blood cell (WBC) differential - 04/12/17 09:00 Blood leukocytes automated count (number/volume) 8.4 10*3/uL 4.3-11.0 Blood erythrocytes automated count (number/volume) 4.35 10*6/uL 4.35-5.85 Venous blood hemoglobin measurement (mass/volume) 13.0 g/dL 11.5-16.0 Blood hematocrit (volume fraction) 40 % 35-52 Automated erythrocyte mean corpuscular volume 93 [foz_us] 80-99 Automated erythrocyte mean corpuscular hemoglobin (mass per erythrocyte) 30 pg 25-34 Automated erythrocyte mean corpuscular hemoglobin concentration measurement (mass/volume) 32 g/dL 32-36 Automated erythrocyte distribution width ratio 14.6 % 10.0- 14.5 Automated blood platelet count (count/volume) 295 10*3/uL 130-400 Automated blood platelet mean volume measurement 9.8 [foz_us] 7.4-10.4 Automated blood neutrophils/100 leukocytes 75 % 42-75 Automated blood lymphocytes/100 leukocytes 11 % 12-44 Blood monocytes/100 leukocytes 8 % 0-12 Automated blood eosinophils/100 leukocytes 5 % 0-10 Automated blood basophils/100 leukocytes 1 % 0-10 Blood neutrophils automated count (number/volume) 6.3 10*3 1.8-7.8 Blood lymphocytes automated count (number/volume) 1.0 10*3 1.0-4.0 Blood monocytes automated count (number/volume) 0.7 10*3 0.0- 1.0 Automated eosinophil count 0.4 10*3/uL 0.0-0.3 Automated blood basophil count (count/volume) 0.1 10*3/uL 0.0-0.1 Whole blood basic metabolic panel - 04/12/17 09:00 Serum or plasma sodium measurement (moles/volume) 143 mmol/L 135-145 Serum or plasma potassium measurement (moles/volume) 4.2 mmol/L 3.6-5.0 Serum or plasma chloride measurement (moles/volume) 102 mmol/L 98-107 Carbon dioxide 27 mmol/L 21-32 Serum or plasma anion gap determination (moles/volume) 14 mmol/L 5-14 Serum or plasma urea nitrogen measurement (mass/volume) 27 mg/dL 7-18 Serum or plasma creatinine measurement (mass/volume) 1.26 mg/dL 0.60-1.30 Serum or plasma urea nitrogen/creatinine mass ratio 21 NRG Serum or plasma creatinine measurement with calculation of estimated glomerular filtration rate 41 NRG Serum or plasma glucose measurement (mass/volume) 131 mg/dL 70-105 Serum or plasma calcium measurement (mass/volume) 10.5 mg/dL 8.5-10.1 Serum or plasma uric acid measurement (mass/volume) - 04/12/17 09:00 Serum or plasma uric acid measurement (mass/volume) 5.7 mg/dL 2.6-7.2 Erythrocyte sedimentation rate by westergren method - 04/12/17 09:00 Erythrocyte sedimentation rate by westergren method 31 mm 0-30 Methicillin resistant Staphylococcus aureus (MRSA) screening culture - 04/12/17 09:10 Methicillin resistant Staphylococcus aureus (MRSA) screening culture NEG NR Capillary blood glucose measurement by glucometer (mass/volume) - 04/12/17 09:12 Capillary blood glucose measurement by glucometer (mass/volume) 122 mg/dL 70-110 Whole blood basic metabolic panel - 04/13/17 05:00 Serum or plasma sodium measurement (moles/volume) 141 mmol/L 135-145 Serum or plasma potassium measurement (moles/volume) 4.1 mmol/L 3.6-5.0 Serum or plasma chloride measurement (moles/volume) 103 mmol/L 98-107 Carbon dioxide 27 mmol/L 21-32 Serum or plasma anion gap determination (moles/volume) 11 mmol/L 5-14 Serum or plasma urea nitrogen measurement (mass/volume) 21 mg/dL 7-18 Serum or plasma creatinine measurement (mass/volume) 0.90 mg/dL 0.60-1.30 Serum or plasma urea nitrogen/creatinine mass ratio 23 NRG Serum or plasma creatinine measurement with calculation of estimated glomerular filtration rate 60 NRG Serum or plasma glucose measurement (mass/volume) 116 mg/dL 70-105 Serum or plasma calcium measurement (mass/volume) 8.6 mg/dL 8.5-10.1 Complete urinalysis with reflex to culture - 07/22/17 19:25 Urine color determination BLUE NRG Urine clarity determination SLIGHTLY CLOUDY NRG Urine pH measurement by test strip 7 5-9 Specific gravity of urine by test strip 1.015 1.016-1.022 Urine protein assay by test strip, semi-quantitative 4+ NEGATIVE Urine glucose detection by automated test strip NEGATIVE NEGATIVE Erythrocytes detection in urine sediment by light microscopy 3+ NEGATIVE Urine ketones detection by automated test strip NEGATIVE NEGATIVE Urine nitrite detection by test strip NEGATIVE NEGATIVE Urine total bilirubin detection by test strip NEGATIVE NEGATIVE Urine urobilinogen measurement by automated test strip (mass/volume) 1 mg/dL NORMAL Urine leukocyte esterase detection by dipstick 1+ NEGATIVE Automated urine sediment erythrocyte count by microscopy (number/high power field) [HPF] NRG Automated urine sediment leukocyte count by microscopy (number/high power field) [HPF] NRG Bacteria detection in urine sediment by light microscopy FEW NRG Squamous epithelial cells detection in urine sediment by light microscopy 25-50 NRG Crystals detection in urine sediment by light microscopy NONE NRG Casts detection in urine sediment by light microscopy NONE NRG Mucus detection in urine sediment by light microscopy SMALL NRG Complete urinalysis with reflex to culture YES NRG Bacterial urine culture - 07/22/17 19:25 Bacterial urine culture [id number] NRG COLONY COUNT <10,000 NRG FTX;REPORTABLE SENSITIVITY REPORTED AT 0733, 4-25-18 NR URINE CULTURE RESULTS PLUS NRG Bacterial susceptibility panel - 07/22/17 19:25 Gentamicin susceptibility test by minimum inhibitory concentration <= NRG Trimethoprim/sulfamethoxazole susceptibility test by minimum inhibitoryconcentration R NRG Ampicillin susceptibility test by minimum inhibitory concentration <= NRG Tobramycin susceptibility test by minimum inhibitory concentration <= NRG Cefazolin susceptibility test by minimum inhibitory concentration <= NRG Ceftriaxone susceptibility test by minimum inhibitory concentration <= NRG Ampicillin/sulbactam susceptibility test by minimum inhibitory concentration <= NRG Piperacillin/tazobactam susceptibility test by minimum inhibitory concentration S NRG Ciprofloxacin susceptibility test by minimum inhibitory concentration 2 NRG Meropenem susceptibility test by minimum inhibitory concentration 0.5 NRG Nitrofurantoin susceptibility test by minimum inhibitory concentration 128 NRG Aztreonam susceptibility test by minimum inhibitory concentration <= NRG Complete blood count (CBC) with automated white blood cell (WBC) differential - 11/08/17 17:37 Blood leukocytes automated count (number/volume) 7.7 10*3/uL 4.3-11.0 Blood erythrocytes automated count (number/volume) 4.37 10*6/uL 4.35-5.85 Venous blood hemoglobin measurement (mass/volume) 12.9 g/dL 11.5-16.0 Blood hematocrit (volume fraction) 41 % 35-52 Automated erythrocyte mean corpuscular volume 93 [foz_us] 80-99 Automated erythrocyte mean corpuscular hemoglobin (mass per erythrocyte) 30 pg 25-34 Automated erythrocyte mean corpuscular hemoglobin concentration measurement (mass/volume) 32 g/dL 32-36 Automated erythrocyte distribution width ratio 14.3 % 10.0- 14.5 Automated blood platelet count (count/volume) 316 10*3/uL 130-400 Automated blood platelet mean volume measurement 9.7 [foz_us] 7.4-10.4 Automated blood neutrophils/100 leukocytes 74 % 42-75 Automated blood lymphocytes/100 leukocytes 14 % 12-44 Blood monocytes/100 leukocytes 8 % 0-12 Automated blood eosinophils/100 leukocytes 3 % 0-10 Automated blood basophils/100 leukocytes 1 % 0-10 Blood neutrophils automated count (number/volume) 5.7 10*3 1.8-7.8 Blood lymphocytes automated count (number/volume) 1.1 10*3 1.0-4.0 Blood monocytes automated count (number/volume) 0.6 10*3 0.0- 1.0 Automated eosinophil count 0.2 10*3/uL 0.0-0.3 Automated blood basophil count (count/volume) 0.1 10*3/uL 0.0-0.1 Comprehensive metabolic panel - 11/08/17 17:37 Serum or plasma sodium measurement (moles/volume) 139 mmol/L 135-145 Serum or plasma potassium measurement (moles/volume) 4.3 mmol/L 3.6-5.0 Serum or plasma chloride measurement (moles/volume) 101 mmol/L 98-107 Carbon dioxide 27 mmol/L 21-32 Serum or plasma anion gap determination (moles/volume) 11 mmol/L 5-14 Serum or plasma urea nitrogen measurement (mass/volume) 30 mg/dL 7-18 Serum or plasma creatinine measurement (mass/volume) 1.48 mg/dL 0.60-1.30 Serum or plasma urea nitrogen/creatinine mass ratio 20 NRG Serum or plasma creatinine measurement with calculation of estimated glomerular filtration rate 34 NRG Serum or plasma glucose measurement (mass/volume) 93 mg/dL 70-105 Serum or plasma calcium measurement (mass/volume) 9.9 mg/dL 8.5-10.1 Serum or plasma total bilirubin measurement (mass/volume) 0.4 mg/dL 0.1-1.0 Serum or plasma alkaline phosphatase measurement (enzymatic activity/volume) 42 U/L 40-136 Serum or plasma aspartate aminotransferase measurement (enzymatic activity/volume) 18 U/L 5-34 Serum or plasma alanine aminotransferase measurement (enzymatic activity/volume) 13 U/L 0-55 Serum or plasma protein measurement (mass/volume) 7.7 g/dL 6.4-8.2 Serum or plasma albumin measurement (mass/volume) 4.1 g/dL 3.2-4.5 CALCIUM CORRECTED 9.8 mg/dL 8.5-10.1 Bacterial urine culture - 02/21/18 14:04 Bacterial urine culture [id number] NRG COLONY COUNT >100,000/ML NRG FTX;REPORTABLE ID REPORTED 02/22/18 12:05 NRG FREE TEXT ENTRY 2 RML SENT SENSITIVITY REPORT 02/23 13:05 NRG FREE TEXT ENTRY 3 RML REPORTED ESBL POSITIVE 02/23 13:55 NR RML Sensitivity Panel - 02/21/18 14:04 Gentamicin susceptibility test by minimum inhibitory concentration > NRG Trimethoprim/sulfamethoxazole susceptibility test by minimum inhibitoryconcentration > NRG Levofloxacin susceptibility test by minimum inhibitory concentration > NRG Ampicillin susceptibility test by minimum inhibitory concentration > NRG Cefazolin susceptibility test by minimum inhibitory concentration > NRG Ceftriaxone susceptibility test by minimum inhibitory concentration > NRG Ciprofloxacin susceptibility test by minimum inhibitory concentration > NRG Meropenem susceptibility test by minimum inhibitory concentration <= NRG Nitrofurantoin susceptibility test by minimum inhibitory concentration <= NRG Amoxicillin and clavulanate potassium susc LUPE R NRG Methicillin resistant Staphylococcus aureus (MRSA) screening culture - 05/14/18 12:50 Methicillin resistant Staphylococcus aureus (MRSA) screening culture NEG NRG Capillary blood glucose measurement by glucometer (mass/volume) - 05/21/18 09:24 Capillary blood glucose measurement by glucometer (mass/volume) 110 mg/dL 70-110 Complete blood count (CBC) with automated white blood cell (WBC) differential - 09/12/18 18:54 Blood leukocytes automated count (number/volume) 7.7 10*3/uL 4.3-11.0 Blood erythrocytes automated count (number/volume) 3.95 10*6/uL 4.35-5.85 Venous blood hemoglobin measurement (mass/volume) 11.8 g/dL 11.5-16.0 Blood hematocrit (volume fraction) 38 % 35-52 Automated erythrocyte mean corpuscular volume 96 [foz_us] 80-99 Automated erythrocyte mean corpuscular hemoglobin (mass per erythrocyte) 30 pg 25-34 Automated erythrocyte mean corpuscular hemoglobin concentration measurement (mass/volume) 31 g/dL 32-36 Automated erythrocyte distribution width ratio 14.4 % 10.0- 14.5 Automated blood platelet count (count/volume) 292 10*3/uL 130-400 Automated blood platelet mean volume measurement 9.9 [foz_us] 7.4-10.4 Automated blood neutrophils/100 leukocytes 72 % 42-75 Automated blood lymphocytes/100 leukocytes 16 % 12-44 Blood monocytes/100 leukocytes 8 % 0-12 Automated blood eosinophils/100 leukocytes 3 % 0-10 Automated blood basophils/100 leukocytes 1 % 0-10 Blood neutrophils automated count (number/volume) 5.5 10*3 1.8-7.8 Blood lymphocytes automated count (number/volume) 1.3 10*3 1.0-4.0 Blood monocytes automated count (number/volume) 0.6 10*3 0.0- 1.0 Automated eosinophil count 0.3 10*3/uL 0.0-0.3 Automated blood basophil count (count/volume) 0.0 10*3/uL 0.0-0.1 Complete urinalysis with reflex to culture - 09/12/18 18:54 Urine color determination YELLOW NRG Urine clarity determination CLOUDY NRG Urine pH measurement by test strip 5 5-9 Specific gravity of urine by test strip 1.015 1.016-1.022 Urine protein assay by test strip, semi-quantitative 1+ NEGATIVE Urine glucose detection by automated test strip NEGATIVE NEGATIVE Erythrocytes detection in urine sediment by light microscopy 1+ NEGATIVE Urine ketones detection by automated test strip NEGATIVE NEGATIVE Urine nitrite detection by test strip POSITIVE NEGATIVE Urine total bilirubin detection by test strip NEGATIVE NEGATIVE Urine urobilinogen measurement by automated test strip (mass/volume) NORMAL NORMAL Urine leukocyte esterase detection by dipstick 3+ NEGATIVE Automated urine sediment erythrocyte count by microscopy (number/high power field) NONE NRG Automated urine sediment leukocyte count by microscopy (number/high power field) [HPF] NRG Bacteria detection in urine sediment by light microscopy LARGE NRG Squamous epithelial cells detection in urine sediment by light microscopy 10-25 NRG Crystals detection in urine sediment by light microscopy NONE NRG Casts detection in urine sediment by light microscopy NONE NRG Mucus detection in urine sediment by light microscopy NEGATIVE NRG Complete urinalysis with reflex to culture YES NR Comprehensive metabolic panel - 09/12/18 18:54 Serum or plasma sodium measurement (moles/volume) 141 mmol/L 135-145 Serum or plasma potassium measurement (moles/volume) 4.1 mmol/L 3.6-5.0 Serum or plasma chloride measurement (moles/volume) 105 mmol/L 98-107 Carbon dioxide 26 mmol/L 21-32 Serum or plasma anion gap determination (moles/volume) 10 mmol/L 5-14 Serum or plasma urea nitrogen measurement (mass/volume) 28 mg/dL 7-18 Serum or plasma creatinine measurement (mass/volume) 1.20 mg/dL 0.60-1.30 Serum or plasma urea nitrogen/creatinine mass ratio 23 NRG Serum or plasma creatinine measurement with calculation of estimated glomerular filtration rate 43 NRG Serum or plasma glucose measurement (mass/volume) 135 mg/dL 70-105 Serum or plasma calcium measurement (mass/volume) 9.1 mg/dL 8.5-10.1 Serum or plasma total bilirubin measurement (mass/volume) 0.3 mg/dL 0.1-1.0 Serum or plasma alkaline phosphatase measurement (enzymatic activity/volume) 45 U/L 40-136 Serum or plasma aspartate aminotransferase measurement (enzymatic activity/volume) 18 U/L 5-34 Serum or plasma alanine aminotransferase measurement (enzymatic activity/volume) 11 U/L 0-55 Serum or plasma protein measurement (mass/volume) 6.9 g/dL 6.4-8.2 Serum or plasma albumin measurement (mass/volume) 3.8 g/dL 3.2-4.5 CALCIUM CORRECTED 9.3 mg/dL 8.5-10.1 Magnesium - 09/12/18 18:54 Magnesium 1.3 mg/dL 1.8-2.4 Serum or plasma amylase measurement (enzymatic activity/volume) - 09/12/18 18:54 Serum or plasma amylase measurement (enzymatic activity/volume) 39 U/L 25-125 Lipase - 09/12/18 18:54 Lipase 32 U/L 8-78 Bacterial urine culture - 09/12/18 18:54 Bacterial urine culture [id number] NRG COLONY COUNT >100,000/ML NRG FTX;REPORTABLE SUSCEPTIBILITY REPORTED 09/14/18 11:05 NRG FREE TEXT ENTRY 2 ID REPORTED 09/14/18 06:05 NRG Dirithromycin susceptibility test by disk diffusion - 09/12/18 18:54 Gentamicin susceptibility test by minimum inhibitory concentration <= NRG Trimethoprim/sulfamethoxazole susceptibility test by minimum inhibitoryconcentration S NRG Levofloxacin susceptibility test by minimum inhibitory concentration <= NRG Ampicillin susceptibility test by minimum inhibitory concentration > NRG Cefazolin susceptibility test by minimum inhibitory concentration > NRG Ceftriaxone susceptibility test by minimum inhibitory concentration <= NRG Ciprofloxacin susceptibility test by minimum inhibitory concentration <= NRG Meropenem susceptibility test by minimum inhibitory concentration <= NRG Nitrofurantoin susceptibility test by minimum inhibitory concentration > NRG Amoxicillin and clavulanate potassium susc LUPE > NRG Complete urinalysis with reflex to culture - 10/17/18 15:20 Urine color determination YELLOW NRG Urine clarity determination SLIGHTLY CLOUDY NRG Urine pH measurement by test strip 5 5-9 Specific gravity of urine by test strip 1.020 1.016-1.022 Urine protein assay by test strip, semi-quantitative 2+ NEGATIVE Urine glucose detection by automated test strip NEGATIVE NEGATIVE Erythrocytes detection in urine sediment by light microscopy NEGATIVE NEGATIVE Urine ketones detection by automated test strip NEGATIVE NEGATIVE Urine nitrite detection by test strip POSITIVE NEGATIVE Urine total bilirubin detection by test strip NEGATIVE NEGATIVE Urine urobilinogen measurement by automated test strip (mass/volume) NORMAL NORMAL Urine leukocyte esterase detection by dipstick 3+ NEGATIVE Automated urine sediment erythrocyte count by microscopy (number/high power field) NONE NRG Automated urine sediment leukocyte count by microscopy (number/high power field) [HPF] NRG Bacteria detection in urine sediment by light microscopy LARGE NRG Squamous epithelial cells detection in urine sediment by light microscopy 10-25 NRG Crystals detection in urine sediment by light microscopy NONE NRG Casts detection in urine sediment by light microscopy NONE NRG Mucus detection in urine sediment by light microscopy NEGATIVE NRG Complete urinalysis with reflex to culture YES NRG Complete blood count (CBC) with automated white blood cell (WBC) differential - 10/17/18 15:57 Blood leukocytes automated count (number/volume) 8.2 10*3/uL 4.3-11.0 Blood erythrocytes automated count (number/volume) 4.46 10*6/uL 4.35-5.85 Venous blood hemoglobin measurement (mass/volume) 12.9 g/dL 11.5-16.0 Blood hematocrit (volume fraction) 41 % 35-52 Automated erythrocyte mean corpuscular volume 93 [foz_us] 80-99 Automated erythrocyte mean corpuscular hemoglobin (mass per erythrocyte) 29 pg 25-34 Automated erythrocyte mean corpuscular hemoglobin concentration measurement (mass/volume) 31 g/dL 32-36 Automated erythrocyte distribution width ratio 14.7 % 10.0- 14.5 Automated blood platelet count (count/volume) 330 10*3/uL 130-400 Automated blood platelet mean volume measurement 9.6 [foz_us] 7.4-10.4 Automated blood neutrophils/100 leukocytes 80 % 42-75 Automated blood lymphocytes/100 leukocytes 8 % 12-44 Blood monocytes/100 leukocytes 8 % 0-12 Automated blood eosinophils/100 leukocytes 4 % 0-10 Automated blood basophils/100 leukocytes 1 % 0-10 Blood neutrophils automated count (number/volume) 6.6 10*3 1.8-7.8 Blood lymphocytes automated count (number/volume) 0.7 10*3 1.0-4.0 Blood monocytes automated count (number/volume) 0.7 10*3 0.0- 1.0 Automated eosinophil count 0.3 10*3/uL 0.0-0.3 Automated blood basophil count (count/volume) 0.0 10*3/uL 0.0-0.1 Comprehensive metabolic panel - 10/17/18 15:57 Serum or plasma sodium measurement (moles/volume) 140 mmol/L 135-145 Serum or plasma potassium measurement (moles/volume) 3.8 mmol/L 3.6-5.0 Serum or plasma chloride measurement (moles/volume) 106 mmol/L 98-107 Carbon dioxide 24 mmol/L 21-32 Serum or plasma anion gap determination (moles/volume) 10 mmol/L 5-14 Serum or plasma urea nitrogen measurement (mass/volume) 34 mg/dL 7-18 Serum or plasma creatinine measurement (mass/volume) 1.72 mg/dL 0.60-1.30 Serum or plasma urea nitrogen/creatinine mass ratio 20 NRG Serum or plasma creatinine measurement with calculation of estimated glomerular filtration rate 29 NRG Serum or plasma glucose measurement (mass/volume) 125 mg/dL 70-105 Serum or plasma calcium measurement (mass/volume) 9.5 mg/dL 8.5-10.1 Serum or plasma total bilirubin measurement (mass/volume) 0.4 mg/dL 0.1-1.0 Serum or plasma alkaline phosphatase measurement (enzymatic activity/volume) 51 U/L 40-136 Serum or plasma aspartate aminotransferase measurement (enzymatic activity/volume) 22 U/L 5-34 Serum or plasma alanine aminotransferase measurement (enzymatic activity/volume) 14 U/L 0-55 Serum or plasma protein measurement (mass/volume) 7.7 g/dL 6.4-8.2 Serum or plasma albumin measurement (mass/volume) 4.1 g/dL 3.2-4.5 CALCIUM CORRECTED 9.4 mg/dL 8.5-10.1 Blood lactic acid measurement (moles/volume) - 10/17/18 16:11 Blood lactic acid measurement (moles/volume) 1.66 mmol/L 0.50- 2.00 Encounters ACCT No. Visit Date/Time Discharge Status Pt. Type Provider Facility Loc./Unit Complaint [id number] 03/16/2014 15:06:04 03/16/2014 23:59:59 CLS Outpatient Rachel Gutierrez [id number] 12/17/2013 14:16:41 12/17/2013 23:59:59 CLS Outpatient Rachel Gutierrez [id number] 09/12/2018 18:17:00 09/12/2018 20:00:00 DIS Emergency MARK MOELLER ROSA Ritchie [facility] ER EXPOSURE TO MOLD, N/V/D, BURNING SENSATIONS [id number] 08/22/2018 00:10:00 08/22/2018 23:59:59 CLS Preadmit CHANEL COTTO MD [facility] REHAB PARTIAL RTC TEAR R SHOULDER S/P SCOPE [id number] 08/19/2018 12:50:00 08/21/2018 00:01:00 DIS Outpatient CHANEL COTTO MD [facility] REHAB PARTIAL RTC TEAR R SHOULDER S/P SCOPE [id number] 07/11/2018 09:02:00 07/11/2018 23:59:59 CLS Outpatient ZAIN GASPAR FACCJENNIFER FACP CCDS [facility] CARD CHEST DISCOMFORT,SLURRING OF SPEECH [id number] 05/21/2018 09:08:00 05/21/2018 14:05:00 DIS Outpatient CHANEL COTTO MD [facility] SDC TORN RIGHT ROTATOR CUFF [id number] 05/14/2018 11:50:00 05/14/2018 12:45:00 DIS Outpatient CHANEL COTTO MD [facility] PREOP TORN RIGHT SHOULDER ROTATOR CUFF [id number] 02/21/2018 14:01:00 02/21/2018 23:59:59 CLS Outpatient SADIQ CHO [facility] LAB UTI [id number] 01/13/2018 08:54:00 01/13/2018 23:59:59 CLS Outpatient MARCELO TAVERA MD [facility] RAD CHRONIC KIDNEY DISEASE [id number] 01/09/2018 13:35:00 01/09/2018 23:59:59 CLS Outpatient ROSITA RIVERA DO [facility] RAD SCREENING [id number] 12/14/2017 08:34:00 12/14/2017 23:59:59 CLS Outpatient CHANEL COTTO MD [facility] RAD M75.111 ROTATOR CUFF TEAR PTL RT [id number] 10/09/2017 09:25:00 10/09/2017 23:59:59 CLS Outpatient HIRAL WOLF MD [facility] RAD MEMORY LOSS [id number] 09/30/2017 15:45:00 09/30/2017 23:59:59 CLS Preadmit ROSITA RIVERA DO [facility] RAD SCREENING MAMMOGRAM FOR BREAST CANCER [id number] 07/22/2017 10:12:00 07/23/2017 13:45:00 DIS Outpatient ARNEL ALANIS MD [facility] ENDO GASTRIC ULCERS [id number] 07/17/2017 11:45:00 07/17/2017 12:23:00 DIS Outpatient ARNEL ALANIS MD [facility] PREOP EGD [id number] 04/12/2017 08:42:00 04/14/2017 16:16:00 DIS Outpatient ARNEL ALANIS MD [facility] SDC THYROID NODULES [id number] 04/09/2017 05:39:00 04/09/2017 15:14:00 DIS Outpatient ARNEL ALANIS MD [facility] PREOP THYROID NODULES [id number] 03/28/2017 12:26:00 03/28/2017 23:59:59 CLS Outpatient ARNEL ALANIS MD [facility] RAD THYROID NODULES [id number] 03/15/2017 07:48:00 03/15/2017 23:59:59 CLS Outpatient ARNEL ALANIS MD [facility] RAD INTERMITTENT HOARSENESS, FATIGUE [id number] 03/14/2017 05:50:00 03/14/2017 23:59:59 CLS Outpatient ARNEL ALANIS MD [facility] PREOP EGD [id number] 02/27/2017 18:49:00 02/27/2017 21:51:00 DIS Emergency ROSA FLORES DO [facility] [facility] ER FALL [id number] 12/11/2016 12:43:00 12/11/2016 23:59:59 CLS Outpatient ROSITA RIVERA DO [facility] RAD Z12.31 [id number] 11/16/2016 13:17:00 11/16/2016 23:59:59 CLS Outpatient ZAIN GASPAR FACC, ALI FACP CCDS [facility] CARD CHEST DISCOMFORT R07.89 [id number] 11/06/2016 12:23:00 11/06/2016 23:59:59 CLS Outpatient ZAIN GASPAR FACC, ALI FACP CCDS [facility] CARD CHEST DISCOMFORT R07.89 [id number] 07/17/2016 13:40:00 07/30/2016 14:29:00 DIS Outpatient HIRAL WOLF MD [facility] REHAB GAIT ABNORMALITY; WEAKNESS; FALLING [id number] 07/19/2016 06:52:00 07/19/2016 23:59:59 CLS Outpatient BIMAL BROWN MD [facility] RAD CHRONIC CYSTITIS W/ HEMATURIA [id number] 02/07/2016 06:10:00 02/08/2016 15:15:00 DIS Outpatient ROSITA RIVERA DO [facility] GENITAL PROLAPSE [id number] 01/31/2016 09:09:00 01/31/2016 10:30:00 DIS Outpatient ROSITA RIVERA DO [facility] PREOP GENITAL PROLAPSE [id number] 10/31/2015 09:58:00 10/31/2015 12:30:00 DIS Outpatient ARNEL ALANIS MD [facility] ULCERS [id number] 10/28/2015 10:05:00 10/28/2015 23:59:59 CLS Outpatient ROSITA RIVERA DO [facility] RAD SCREENING [id number] 10/27/2015 05:56:00 10/27/2015 11:51:00 DIS Outpatient ARNEL ALANIS MD [facility] PREOP ULCERS [id number] 11/18/2014 09:10:00 11/18/2014 12:03:00 DIS Emergency ALEXI RAMOS MD [facility] ER FALL/MULTIPLE INJURIES [id number] 10/26/2014 14:04:00 10/26/2014 23:59:59 CLS Outpatient ROSITA RIVERA DO [facility] RAD SCREENING [id number] 09/10/2014 13:29:00 09/17/2014 14:34:00 DIS Outpatient CHANEL COTTO MD [facility] REHAB L5 WEAKNESS/PAIN [id number] 05/18/2014 07:18:00 05/18/2014 23:59:59 CLS Outpatient ZAIN GASPAR FACC, ALI FACP CCDS [facility] CARD HTN HLP,CP [id number] 05/13/2014 08:50:00 05/13/2014 23:59:59 CLS Outpatient ZAIN GASPAR FACC, ALI FACP CCDS [facility] CARD CAD,HLP,HTN,CP [id number] 05/11/2014 08:45:00 05/11/2014 23:59:59 CLS Outpatient CHANEL COTTO MD [facility] RAD L HIP TO MID THIGH STRESS FRACTORS [id number] 05/11/2014 07:52:00 05/11/2014 23:59:59 CLS Outpatient BIMAL BROWN MD [facility] RAD CHRONIC CYSTITIS [id number] 05/04/2014 12:06:00 05/04/2014 23:59:59 CLS Outpatient BIMAL BROWN MD [facility] RAD CHRONIC CYSTITIS [id number] 02/15/2014 09:08:00 02/15/2014 13:20:00 DIS Outpatient ARNEL ALANIS MD [facility] SDC DIARRHEA;DIVERTICULOSIS; CYST RIGHT ARM [id number] 02/11/2014 13:08:00 02/11/2014 23:59:59 CLS Outpatient ARNEL ALANIS MD [facility] PREOP DIARRHEA; DIVERTICULOSIS; CYST RIGHT ARM [id number] 07/06/2013 08:59:00 07/06/2013 23:59:59 CLS Outpatient FRIEDA BARTLETT WILDLIFE REFUGE SPECIALIST [facility] RAD SCREENING [id number] 05/19/2013 13:34:00 05/19/2013 23:59:59 CLS Outpatient MARYAMAMINTA CORONADO MEASURER [facility] RAD HEARING LOSS [id number] 04/22/2013 08:45:00 04/22/2013 23:59:59 CLS Outpatient MARYAM, AMINTA Cruzito MEASURER [facility] RAD ASYMMETRICAL HEARING LOSS [id number] 12/29/2012 15:00:00 03/12/2013 00:01:00 DIS Outpatient SADIQ CHO WILDLIFE REFUGE SPECIALIST [facility] UTI [id number] 11/30/2012 06:06:00 02/18/2013 00:01:00 DIS Outpatient HIRAL WOLF MD [facility] SURG RCR KLEBSIELLA UTI [id number] 01/05/2013 16:19:00 01/05/2013 23:59:59 CLS Outpatient SADIQ CHO WILDLIFE REFUGE SPECIALIST [facility] D/C PICC LINE [id number] 10/07/2012 11:41:00 10/31/2012 17:00:00 DIS Outpatient CHANEL COTTO MD [facility] REHAB S/P L TKA [id number] 08/15/2012 11:03:00 08/22/2012 16:45:00 DIS Inpatient LUIS CARLOS VARNER MD [facility] IRF OSTEOARTHRITIS LEFT KNEE [id number] 08/13/2012 08:46:00 08/15/2012 09:30:00 DIS Inpatient CHANEL COTTO MD [facility] SURGICAL OSTEOARTHRITIS LEFT KNEE [id number] 08/05/2012 10:04:00 08/05/2012 23:59:59 CLS Outpatient CHANEL COTTO MD [facility] PREOP OSTEOARTHRITIS LEFT KNEE [id number] 08/04/2012 07:14:00 08/04/2012 10:20:00 DIS Outpatient ARNEL ALANIS MD [facility] SDC ULCERS [id number] 07/30/2012 07:23:00 07/30/2012 23:59:59 CLS Outpatient ARNEL ALANIS MD [facility] PREOP ULCERS [id number] 10/17/2018 16:39:00 ACT Inpatient KEVIN BERNABE DO [facility] 4TH UTI WITH MULTIDRUG RESISTANT ORGANISM [id number] 11/08/2017 17:45:00 Document Registration [id number] 06/01/2014 07:11:00 Document Registration [id number] 05/13/2014 08:50:00 Document Registration [id number] 05/13/2014 08:50:00 Document Registration [id number] 05/13/2014 08:50:00 Document Registration [id number] 03/13/2013 00:00:00 Document Registration [id number] 02/19/2013 00:00:00 Document Registration [id number] 03/04/2012 13:49:00 Document Registration [id number] 01/23/2012 13:01:00 Document Registration [id number] 01/22/2012 07:38:00 Document Registration [id number] 12/14/2011 10:31:00 Document Registration [id number] 09/27/2011 07:59:00 Document Registration [id number] 09/21/2011 12:20:00 Document Registration [id number] 05/30/2011 06:00:00 Document Registration [id number] 05/28/2011 12:22:00 Document Registration [id number] 06/29/2010 07:39:00 Document Registration [id number] 07/26/2009 10:01:00 Document Registration [id number] 07/15/2009 13:59:00 Document Registration [id number] 01/04/2009 12:05:00 Document Registration [id number] 12/03/2008 08:10:00 Document Registration
[2018-10-17] MEDS: meTOprolol TARTRATE 25 MG (LOPRESSOR) TABLET PO SCH (21:30)
[2018-10-17] MEDS ORDERED: ONDANSETRON 4 MG (ZOFRAN) ORAL DISSOLVE TAB PO PRN (21:30)
[2018-10-18] VITALS (8 sets, daily range): BP systolic 113–145; BP diastolic 52–79
[2018-10-18] MEDS: MEROPENEM 500 MG/SWFI 10 ML IV PUSH IV SCH ×8 (00:20→23:56)
[2018-10-18] MEDS: LACTATED RINGERS 1,000 ML IV SCH ×2 (05:11→16:02)
[2018-10-18 06:39] LABS: CREATININE SERUM 1.53 MG/DL (0.60-1.30); POTASSIUM 3.8 MMOL/L (3.6-5.0)
[2018-10-18] MEDS: eZETimibe 10 MG (ZETIA) TABLET PO SCH (08:48)
[2018-10-18] MEDS: ASPIRIN 81 MG CHEW (CHILDREN'S ASA) PO SCH (08:48)
[2018-10-18] MEDS: meTOprolol TARTRATE 25 MG (LOPRESSOR) TABLET PO SCH ×2 (08:48→21:10)
[2018-10-18] MEDS: LEVOTHYROXINE 125 MCG (LEVOTHROID) TABLET PO SCH (08:48)
--- NOTE | 2018-10-18 10:55 | History & Physical-Hospitalist ---
History of Present Illness HPI/Chief Complaint Pt is n 82yoCF with a PMH of HTN, DMII, CKD who presented to the ER with a CC of multidrug resistant UTI. She states she has had UTIs off and on since she had a shoulder surgery in May. She was treated for 2 weeks with Cipro by her PCP Dr Bhakta repeat UTI and cultures were drawn by her Water Filtration Technician Dr Elizabeth amor ich revealed ESBL with sensitivities only to ertapenem. She was admitted for IV abx. Source: patient Date Seen 10/18/18 Time Seen by a Provider: 10:47 Attending Physician Fouzia Campos DO PCP Petra Bhakta MD Referring Physician Date of Admission Oct 17, 2018 at 16:39 Home Medications & Allergies Home Medications Reviewed patient Home Medication Reconciliation performed by pharmacy medication reconciliations vehicle operator technician and/or nursing. Patients Allergies have been reviewed. Allergies Allergies Coded Allergies sertraline (Verified Allergy, Severe, CANNOT BREATHE, 03/14/17) Cephalosporins (Unverified Allergy, Mild, 03/14/17) Iodinated Contrast- Oral and IV Dye (Unverified Allergy, Mild, 03/14/17) Penicillins (Unverified Allergy, Mild, 03/14/17) Shellfish (Unverified Allergy, Mild, 03/14/17) atorvastatin (Unverified Allergy, Mild, 03/14/17) clarithromycin (Unverified Allergy, Mild, 03/14/17) codeine (Unverified Allergy, Mild, PT HAS RECEIVED HYDROMORPHONE IN THE PAST, 03/14/17) diltiazem (Unverified Allergy, Mild, 03/14/17) glucagon (Unverified Allergy, Mild, 03/14/17) lisinopril (Unverified Allergy, Mild, 03/14/17) morphine (Unverified Allergy, Mild, PT HAS RECEIVED HYDROMORPHONE IN THE PAST, 03/14/17) nifedipine (Unverified Allergy, Mild, 03/14/17) paroxetine (Unverified Allergy, Mild, 03/14/17) sulfamethoxazole (Unverified Allergy, Mild, 03/14/17) acetaminophen (Verified Allergy, Unknown, 03/14/17) benzocaine (Verified Allergy, Unknown, methemoglobinemia, 05/14/18) furosemide (Unverified Allergy, Unknown, 03/14/17) latex (Verified Allergy, Unknown, 03/14/17) meperidine (Verified Allergy, Unknown, PATIENT HAS RECEIVED FENTANYL IN THE PAST, 03/14/17) propoxyphene (Verified Allergy, Unknown, 03/14/17) sulindac (Verified Allergy, Unknown, 03/14/17) tramadol (Verified Allergy, Unknown, 04/12/17) Uncoded Allergies TAPE ( Allergy, Unknown, CAN USE PAPER TAPE, 12/08/08) Past Lwnclsn-Xylven-Maijjj Hx Past Med/Social Hx: Reviewed Nursing Past Med/Soc Hx Patient Social History Alcohol Use: Past History Recreational Drug Use: No Smoking Status: Former Smoker Former Smoker, Quit: Jan 30, 1966 Type Used: Cigarettes 2nd Hand Smoke Exposure: No Recent Foreign Travel: No Contact w/other who traveled: No Recent Hopitalizations: No Recent Infectious Disease Expo: No Immunizations Up To Date Tetanus Booster (TDap): More than 5yrs Pediatric: No Date of Pneumonia Vaccine: Jan 22, 2014 Date of Influenza Vaccine: Jan 31, 2018 Seasonal Allergies Seasonal Allergies: Yes Past Medical History Surgeries: Bladder Surgery, Gallbladder, Hysterectomy, Joint Replacement, O ophorectomy, Orthopedic, Thyroidectomy, Tonsillectomy Currently Using CPAP: No Currently Using BIPAP: No Cardiac: Heart Murmur, Hypertension, Valvular Heart Disease Neurological: Concussion, Headaches /Migraines 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: No Sexually Transmitted Disease: No HIV/AIDS: No Female 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 Disorders: Denies Hysterectomy, Menopausal Genitourinary: UTI-Chronic Gastrointestinal: Gastroesophageal Reflux, Diverticulosis, Hiatal Hernia, Ulcer Musculoskeletal: Arthritis, Chronic Back Pain Endocrine: Hypothyroidsim, Diabetes, Non-Insulin dep Loss of Vision: Bilateral Hearing Impairment: Denies Cancer: Skin Did You Recieve Any Treatments: Yes What Type of Treatment Did You: Surgical Intervention Psychosocial: Anxiety, PTSD, Depression History of Blood Disorders: No Adverse Reaction to Blood Lagunas: No Family History Arthritis G8 BROTHER G8 SISTER Cardiovascular disease 19 MOTHER Completed stroke G8 BROTHER G8 SISTER Congenital disease Dementia G8 SISTER Diabetes mellitus G8 BROTHER Hypertension 19 FATHER 19 MOTHER G8 BROTHER G8 SISTER Respiratory disorder G8 SISTER Heart Disease, Cancer, Diabetes Review of Systems Constitutional: No fever; malaise, weakness EENTM: no symptoms reported Respiratory: no symptoms reported Cardiovascular: no symptoms reported Gastrointestinal: no symptoms reported, see HPI Genitourinary: see HPI; No discharge; frequency; No hematuria; other (odor) Musculoskeletal: no symptoms reported Skin: no symptoms reported Psychiatric/Neurological: No Symptoms Reported Physical Exam Physical Exam Vital Signs Vital Signs - First Documented 10/17/18 15:18 Temp 97.5 Pulse 67 Resp 14 B/P (MAP) 174/78 (110) Pulse Ox 98 O2 Delivery Room Air Capillary Refill : Less Than 3 Seconds Height, Weight, BMI Height: 5'3.00" Weight: 185lbs. 5.0oz. 84.792845ht; 32.8 BMI Method:Stated General Appearance: No Apparent Distress, WD/WN, Obese HEENT: Moist Mucous Membranes; No Scleral Icterus (L), No Scleral Icterus (R) Respiratory: Lungs Clear, No Respiratory Distress Cardiovascular: Regular Rate, Rhythm, Systolic Murmur Gastrointestinal: Normal Bowel Sounds, Non Tender, Soft Extremity: Normal Capillary Refill, No Calf Tenderness, No Pedal Edema Neurologic/Psychiatric: Alert, Oriented x3, Normal Mood/Affect Skin: Normal Color, Warm/Dry Results Results/Procedures Labs Laboratory Tests 10/17/18 15:57 10/18/18 05:24 Patient resulted labs reviewed. Imaging: Reviewed Imaging Report Assessment/Plan Admission Diagnosis Multi Drug Resistant Abx Admission Status: Inpatient Order (span 2 midnights) Reason for Inpatient Admission: multi aurora resistant, needs IV ertapenem Assessment and Plan assessment Multidrug resistant UTI Chronic kidney disease oay-kqphits-uzwseunej diabetes Hypertension hypothyroidism Plan: IV ertapenem per outside facilities cultures Repeat UA and cure pending Will attempt to get sensitives to fosfomycin to see if it can be used as outpatient Resume home meds as able SSI Diagnosis/Problems Diagnosis/Problems (1) CKD (chronic kidney disease) Qualifiers: Chronic kidney disease stage: stage 3 (moderate) Qualified Codes: N18.3 - Chronic kidney disease, stage 3 (moderate) (2) Essential (primary) hypertension (3) HLD (hyperlipidemia) (4) Hypothyroidism (5) Non-insulin dependent type 2 diabetes mellitus (6) Drug (multiple) resistant infection Status: Acute (7) UTI (urinary tract infection) Status: Acute Qualifiers: Urinary tract infection type: acute cystitis Hematuria presence: without hematuria Qualified Codes: N30.00 - Acute cystitis without hematuria Clinical Quality Measures DVT/VTE Risk/Contraindication: Risk Factor Score Per Nursin RFS Level Per Nursing on Admit: 4+=Very High ELROY CARLSON MD Oct 18, 2018 10:55
[2018-10-18] MEDS ORDERED: BENZONATATE 100 MG (TESSALON) CAPSULE PO PRN (11:00)
[2018-10-18] MEDS ORDERED: ONDANSETRON 4 MG/2 ML (SDV) Z0FRAN IV PRN (11:00)
[2018-10-18] MEDS ORDERED: ACETAMINOPHEN 500 MG TAB (TYLENOL) PO PRN ×2 (11:00→11:45)
[2018-10-18] MEDS ORDERED: DIAZEPAM 2 MG (VALIUM) TAB PO PRN (11:00)
[2018-10-18] MEDS ORDERED: MILK OF MAGNESIA 400 MG/5 ML 30 ML UDC PO PRN (11:00)
[2018-10-18] MEDS ORDERED: ANTACID SUSP 30 ML UDC (MYLANTA) PO PRN (11:00)
[2018-10-18] MEDS ORDERED: DIAZEPAM 5 MG (VALIUM) TABLET PO PRN (11:30)
[2018-10-18] MEDS: inSUlin ASPART (NovoLOG) 1 UNIT/0.01 ML (CHARGE PER UNIT) SC SCH ×3 (12:24→21:11)
--- NOTE | 2018-10-18 14:15 | NUR ---
REPORT GIVEN TO JACKIE FIELDS.
--- NOTE | 2018-10-18 14:20 | NUR ---
RECEIVED REPORT FROM HAYLEY, PATIENT ALERT, FAMILY AT BEDSIDE, IV SITE WITHOUT REDNESS OR SWELLING, DENIES PAIN OR SOB, CALL LIGHT WITHIN REACH
[2018-10-18] MEDS: MELATONIN 3 MG TABLET PO PRN (21:12)
[2018-10-19] MEDS: LACTATED RINGERS 1,000 ML IV SCH (02:49)
[2018-10-19 04:00] VITALS: BP 145/55
[2018-10-19] MEDS: inSUlin ASPART (NovoLOG) 1 UNIT/0.01 ML (CHARGE PER UNIT) SC SCH ×4 (06:00→21:25)
[2018-10-19 08:00] VITALS: BP 150/66
[2018-10-19] MEDS: eZETimibe 10 MG (ZETIA) TABLET PO SCH (08:29)
[2018-10-19] MEDS: MEROPENEM 500 MG/SWFI 10 ML IV PUSH IV SCH ×4 (08:29→16:31)
[2018-10-19] MEDS: meTOprolol TARTRATE 25 MG (LOPRESSOR) TABLET PO SCH ×2 (08:29→21:36)
[2018-10-19] MEDS: LEVOTHYROXINE 125 MCG (LEVOTHROID) TABLET PO SCH (08:29)
[2018-10-19] MEDS: ASPIRIN 81 MG CHEW (CHILDREN'S ASA) PO SCH (08:30)
--- NOTE | 2018-10-19 10:52 | Progress Note - Hospitalist ---
Subjective HPI/CC On Admission Date Seen by Provider: Oct 19, 2018 Time Seen by Provider: 09:15 Pt is n 82yoCF with a PMH of HTN, DMII, CKD who presented to the ER with a CC of multidrug resistant UTI. She states she has had UTIs off and on since she had a shoulder surgery in May. She was treated for 2 weeks with Cipro by her PCP Dr Bhakta repeat UTI and cultures were drawn by her Scientific Database Curator Dr Johnson which revealed ESBL with sensitivities only to ertapenem. She was admitted for IV abx. Subjective/Events-last exam Pt reports doing well. Only concern is about some of her medications not being restarted, specifically her DM meds as her BS was 186 yesterday. Focused Exam Lactate Level 10/17/18 16:11: Lactic Acid Level 1.66 Objective Exam Vital Signs Vital Signs Date Time Temp Pulse Resp B/P (MAP) Pulse Ox O2 Delivery O2 Flow Rate FiO2 10/19/18 08:00 94 Room Air 10/19/18 04:00 97.9 53 18 145/55 (85) Capillary Refill : Less Than 3 Seconds General Appearance: No Apparent Distress, WD/WN, Obese Respiratory: Lungs Clear, No Respiratory Distress Cardiovascular: Regular Rate, Rhythm, Systolic Murmur Gastrointestinal: Normal Bowel Sounds, Non Tender, Soft Neurologic/Psychiatric: Alert, Oriented x3, Normal Mood/Affect Results/Procedures Lab Patient resulted labs reviewed. Imaging: Reviewed Imaging Report Assessment/Plan Assessment and Plan Assess & Plan/Chief Complaint assessment Multidrug resistant UTI Chronic kidney disease vge-ovceskg-jakdpjswa diabetes Hypertension hypothyroidism Plan: IV ertapenem per outside facilities cultures Repeat UA and culture pending Will attempt to get sensitives to fosfomycin to see if it can be used as outpatient discussed with granddaughter and family could transport for once daily abx if needed SSI- hold home glipizide due to fasting blood sugars of 102 resume if trend continues up creative services producer consult for possible outpatient abx Diagnosis/Problems Diagnosis/Problems (1) CKD (chronic kidney disease) Qualifiers: Chronic kidney disease stage: stage 3 (moderate) Qualified Codes: N18.3 - Chronic kidney disease, stage 3 (moderate) (2) Essential (primary) hypertension (3) HLD (hyperlipidemia) (4) Hypothyroidism (5) Non-insulin dependent type 2 diabetes mellitus (6) Drug (multiple) resistant infection Status: Acute (7) UTI (urinary tract infection) Status: Acute Qualifiers: Urinary tract infection type: acute cystitis Hematuria presence: without hematuria Qualified Codes: N30.00 - Acute cystitis without hematuria Clinical Quality Measures DVT/VTE Risk/Contraindication: Risk Factor Score Per Nursin RFS Level Per Nursing on Admit: 4+=Very High ELROY CARLSON MD Oct 19, 2018 10:52
[2018-10-19] MEDS ORDERED: MEMANTINE 5 MG (NAMENDA) TABLET PO NR (11:00)
[2018-10-19 12:00] VITALS: BP 149/57
[2018-10-19 15:48] VITALS: BP 165/69
[2018-10-19] MEDS: MAGNESIUM OXIDE (MAG-OX)400 MG TAB PO SCH (16:31)
[2018-10-19 20:01] VITALS: BP 150/69
[2018-10-19] MEDS ORDERED: NON-FORMULARY MEDICATION 1 EA EA (Magnesium Oxide (Magnesium) 250 MG) PO SCH (21:00)
[2018-10-19] MEDS ORDERED: CITALOPRAM HYDROBROMIDE 20 MG PO SCH (21:00)
[2018-10-19] MEDS: MELATONIN 3 MG TABLET PO PRN (21:34)
[2018-10-19] MEDS: FENOFIBRATE 134 MG (LOFIBRA) CAPSULE PO SCH (21:34)
[2018-10-19] MEDS: MEMANTINE 5 MG (NAMENDA) TABLET PO SCH (21:35)
[2018-10-20 00:19] VITALS: BP 138/57
[2018-10-20] MEDS: MEROPENEM 500 MG/SWFI 10 ML IV PUSH IV SCH ×6 (00:58→16:55)
[2018-10-20 03:09] VITALS: BP 129/80
[2018-10-20] MEDS: inSUlin ASPART (NovoLOG) 1 UNIT/0.01 ML (CHARGE PER UNIT) SC SCH ×4 (06:00→19:55)
[2018-10-20] MEDS: MAGNESIUM OXIDE (MAG-OX)400 MG TAB PO SCH (06:26)
[2018-10-20 08:00] VITALS: BP 183/69
--- NOTE | 2018-10-20 08:36 | Progress Note ---
Subjective Date Seen by a Provider: Oct 20, 2018 Time Seen by a Provider: 08:30 Subjective/Events-last exam PT REPORTS THAT SHE IS FEELING BETTER TODAY - SHE DENIES CHEST PAIN OR SHORTNESS OF BREATH. HER FAMILY IS REQUESTING THAT SHE BE MOBILIZED IN HER ROOM MORE TO PREVENT DECLINE IN STRENGTH. PT'S FAMILY IS ALSO INTERESTED IN LOOKING INTO SWING-BED. Review of Systems General: Fatigue HEENT: No Head Aches Pulmonary: No Dyspnea, No Cough Cardiovascular: No: Chest Pain, Palpitations Gastrointestinal: No: Nausea, Abdominal Pain Genitourinary: No Dysuria; Frequency Neurological: Weakness; No: Confusion Focused Exam Lactate Level 10/17/18 16:11: Lactic Acid Level 1.66 Objective Exam Last Set of Vital Signs Vital Signs Date Time Temp Pulse Resp B/P (MAP) Pulse Ox O2 Delivery O2 Flow Rate FiO2 10/20/18 03:09 98.4 56 18 129/80 (96) 93 Room Air Capillary Refill : Less Than 3 Seconds I&O Intake and Output 10/19/18 23:59 Intake Total 2402 ml Output Total 500 ml Balance 1902 ml Intake Oral 1742 ml IV Total 660 ml Output Urine Total 500 ml # Voids 5 # Bowel Movements 1 General: Alert, Oriented X3, Cooperative, No Acute Distress HEENT: Atraumatic, PERRLA Neck: Supple Lungs: Clear to Auscultation, Normal Air Movement Heart: Regular Rate Abdomen: Normal Bowel Sounds, Soft, No Tenderness Extremities: No Clubbing, No Cyanosis Skin: No Rashes Neuro: Cranial Nerves 3-12 NL Psych/Mental Status: Mental Status NL, Mood NL Results Lab Laboratory Tests 10/19/18 10:49: Glucometer 157H 10/19/18 15:51: Glucometer 113H 10/19/18 21:00: Glucometer 121H 10/20/18 00:22: Glucometer 100 10/20/18 05:48: Glucometer 101 Microbiology 10/17/18 Blood Culture - Preliminary, Resulted No growth 10/17/18 Urine Culture - Preliminary, Resulted Escherichia coli Assessment/Plan Assessment/Plan Assess & Plan/Chief Complaint Multidrug resistant UTI Chronic kidney disease gmp-qbvuktp-xcnhicecx diabetes Hypertension hypothyroidism IV ertapenem started initially on admission - due to cultures from her termite exterminator helper - we changed to iv meropenem Repeat culture pending. - after discussing with the patient and her family - the burden of transport for three times daily antibiotics is too great and therefore we will look into swing bed for continued iv antibiotics. SSI- hold home glipizide due to fasting blood sugars of 102 resume if trend continues up Clinical Quality Measures DVT/VTE Risk/Contraindication: Risk Factor Score Per Nursin RFS Level Per Nursing on Admit: 4+=Very High HIRAL WOLF MD Oct 20, 2018 08:36
[2018-10-20] MEDS: LACTOBACILLUS ACIDOPHILUS (PROBIOTIC) CAPSULE PO SCH (08:49)
[2018-10-20] MEDS: ASPIRIN 81 MG CHEW (CHILDREN'S ASA) PO SCH (08:49)
[2018-10-20] MEDS: eZETimibe 10 MG (ZETIA) TABLET PO SCH (08:49)
[2018-10-20] MEDS: MEMANTINE 5 MG (NAMENDA) TABLET PO SCH ×2 (08:49→20:13)
[2018-10-20] MEDS: meTOprolol TARTRATE 25 MG (LOPRESSOR) TABLET PO SCH ×2 (08:49→20:13)
[2018-10-20] MEDS: LEVOTHYROXINE 125 MCG (LEVOTHROID) TABLET PO SCH (08:49)
[2018-10-20] MEDS ORDERED: METF-397 PO (08:54)
[2018-10-20] MEDS ORDERED: NON-FORMULARY MEDICATION 1 EA EA (Fenofibrate Nanocrystallized (Tricor) 145 MG) PO SCH (09:00)
[2018-10-20] MEDS ORDERED: BACILLUS COAGULANS PO SCH (09:00)
[2018-10-20 12:00] VITALS: BP 160/61
--- NOTE | 2018-10-20 12:35 | NUR ---
Pt is Jainism and demonstrates dynamic aishwarya in God. States she is not afraid of , and looks forward to seeing her parents, , and sisters in heaven. She shared that one of her sisters two years ago in her arms, and described it as "the most beautiful experience I have ever had." That same year, her brother was diagnosed with Bladder Cancer. Her brother is 10 years younger than she, and is much like a son to her. They talk on the phone daily, and provide mutual encouragement and support. The pt's 20 years ago, after which time she moved from [place] to [place]. Her had been building an apartment for them in [place] prior to his nearby their daughter. The pt reflected on these experiences and welcomed chaplains prayers.
[2018-10-20] MEDS ORDERED: MEMA5TAB16 PO (12:45)
[2018-10-20] MEDS ORDERED: GLIP5TAB13 PO (12:46)
[2018-10-20] MEDS ORDERED: NITR25CA4 PO (12:54)
[2018-10-20] MEDS ORDERED: ERGO50006 PO (13:12)
[2018-10-20] MEDS ORDERED: CIPR250T3 PO (13:12)
[2018-10-20] MEDS ORDERED: OMEP40CA36 PO (13:29)
[2018-10-20] MEDS ORDERED: LEVO125T6 PO (13:29)
[2018-10-20] MEDS ORDERED: CHOL10007 PO (13:29)
--- NOTE | 2018-10-20 13:33 | NUR ---
SPOKE WITH PT (SHE ALSO HAD A HOME MED LIST). WELL GOING THRU THE EXT MED HISTORY TO COMPLETE THE MED REC. LEVOTHYROXINE 125MCG- 1 T DAILY, EXCEPT SATURDAY AND SATURDAY WHEN THE PATIENT TAKES ONLY 1/2 TAB. CELEXA 40MG- 1/2 TABLET BID VALIUM 5MG- ONLY USES PRN, PT STATES SHE CAN GO WEEKS WITHOUT TAKING ANY OTC MEDS: MAGNESIUM 250MG- 1 D VITAMIN D3 1,000- 1 D ASPIRIN 81MG- 1 D Addendum: 10/20/18 at 1446 by RANDI LU presetter operator CLARIFIED WITH PATIENT ABOUT THE CITALOPRAM AND TRIAMTERENE /HCTZ. 02-16-2018 CITALOPRAM 40MG #90/90DS- PT STATES SHE SOMETIMES FORGETS TO TAKE TO 2ND DOSE AND THEN HAS EXTRAS.\ TRIAMTERENE /HCTZ - THE EXTERNAL MED HISTORY SHOWS DIRECTIONS OF THREE TIMES PER WEEK, HOWEVER AFTER THE PATIENT WENT TO HER KIDNEY SPECIALIST THEY WANTED HER TO TAKE IT ONCE D
--- NOTE | 2018-10-20 15:20 | NUR ---
REPORT GIVEN TO JACKIE ROQUE. SHE WILL ASSUME CARE OF THE PATIENT AT THIS TIME.
[2018-10-20 16:46] VITALS: BP 176/79
[2018-10-20] MEDS ORDERED: NYSTATIN ORAL SUSP 5 ML UDC PO SCH (18:00)
[2018-10-20 19:44] VITALS: BP 162/73
[2018-10-20] MEDS: MELATONIN 3 MG TABLET PO PRN (20:13)
[2018-10-20] MEDS: FENOFIBRATE 134 MG (LOFIBRA) CAPSULE PO SCH (20:13)
[2018-10-21] VITALS (7 sets, daily range): BP systolic 126–182; BP diastolic 58–76
[2018-10-21] MEDS: MEROPENEM 500 MG/SWFI 10 ML IV PUSH IV SCH ×8 (01:02→23:34)
[2018-10-21] MEDS: inSUlin ASPART (NovoLOG) 1 UNIT/0.01 ML (CHARGE PER UNIT) SC SCH ×4 (05:49→20:40)
[2018-10-21] MEDS ORDERED: LEVOTHYROXINE 125 MCG (LEVOTHROID) TABLET PO SCH (06:30)
[2018-10-21] MEDS: MAGNESIUM OXIDE (MAG-OX)400 MG TAB PO SCH (06:35)
--- NOTE | 2018-10-21 08:34 | Progress Note ---
Subjective Date Seen by a Provider: Oct 21, 2018 Time Seen by a Provider: 08:40 Subjective/Events-last exam pt reports that she is doing well - she has apparently been having a hard time with iv's and staff is wondering about a mid-line. pt denies abdominal pain, dizziness she is concerned about her hand swelling. Review of Systems General: Fatigue HEENT: No Head Aches Pulmonary: No Cough Cardiovascular: Edema; No: Chest Pain Gastrointestinal: No: Nausea, Abdominal Pain Genitourinary: Frequency Neurological: No: Confusion Objective Exam Last Set of Vital Signs Vital Signs Date Time Temp Pulse Resp B/P (MAP) Pulse Ox O2 Delivery O2 Flow Rate FiO2 10/21/18 08:21 97.0 71 22 155/74 (101) 97 Room Air Capillary Refill : Less Than 3 Seconds I&O Intake and Output 10/21/18 00:00 Intake Total 2290 ml Balance 2290 ml Intake Oral 2260 ml IV Total 30 ml # Voids 6 # Bowel Movements 1 General: Alert, Oriented X3, Cooperative, No Acute Distress HEENT: Atraumatic, PERRLA Neck: Supple Lungs: Clear to Auscultation Heart: Regular Rate Abdomen: Normal Bowel Sounds, Soft Extremities: No Clubbing Skin: No Rashes Neuro: Normal Speech, Cranial Nerves 3-12 NL Psych/Mental Status: Mental Status NL, Mood NL Results Lab Laboratory Tests 10/20/18 11:03: Glucometer 120H 10/20/18 16:41: Glucometer 116H 10/20/18 19:38: Glucometer 124H 10/21/18 05:43: Glucometer 103 Microbiology 10/17/18 Blood Culture - Preliminary, Resulted No growth 10/17/18 Urine Culture - Preliminary, Resulted Escherichia coli Assessment/Plan Assessment/Plan Assess & Plan/Chief Complaint Multidrug resistant UTI Chronic kidney disease dks-pdaojqs-hiklwnnla diabetes Hypertension hypothyroidism IV ertapenem started initially on admission - due to cultures from her boxing machine operator - we changed to iv meropenem Repeat culture still pending. - after discussing with the patient and her family - the burden of transport for three times daily antibiotics is too great and therefore we will plan on swing bed for continued iv antibiotics. SSI- hold home glipizide due to fasting blood sugars of 102 resume if trend continues up Hypertension - resume home medications - bp high today. Hypothyroid - resume home regimen Edema of hands - elevate hands while in bed. Clinical Quality Measures DVT/VTE Risk/Contraindication: Risk Factor Score Per Nursin RFS Level Per Nursing on Admit: 4+=Very High HIRAL WOLF MD Oct 21, 2018 08:34
[2018-10-21] MEDS: LACTOBACILLUS ACIDOPHILUS (PROBIOTIC) CAPSULE PO SCH (08:48)
[2018-10-21] MEDS: eZETimibe 10 MG (ZETIA) TABLET PO SCH (08:49)
[2018-10-21] MEDS: hydrALAZINE (APRESOLINE) 25 MG TAB PO SCH ×2 (08:49→20:40)
[2018-10-21] MEDS: ASPIRIN 81 MG CHEW (CHILDREN'S ASA) PO SCH (08:49)
[2018-10-21] MEDS: MEMANTINE 5 MG (NAMENDA) TABLET PO SCH ×2 (08:49→20:38)
[2018-10-21] MEDS: meTOprolol TARTRATE 25 MG (LOPRESSOR) TABLET PO SCH ×2 (08:53→20:39)
--- NOTE | 2018-10-21 12:08 | NUR ---
Swing Bed Note: Qualifies for swing bed for continued need for IV abx (Resistant UTI) et anticipated need for short term PT et OT. reports that the patient is unable to travel back et forth for needed IV abx every 8 hours d/t weakness et frailty. Anticipate admission to swing bed on 10/22 in the a.m. Thank you for this referral!
--- NOTE | 2018-10-21 15:00 | NUR ---
Important Message from Medicare presented, reviewed, signed and charted. Patient voiced no intention to appeal and deny any needs or further questions at this time.
[2018-10-21] MEDS: NYSTATIN ORAL SUSP 5 ML UDC PO SCH ×2 (17:53→23:35)
[2018-10-21] MEDS: FENOFIBRATE 134 MG (LOFIBRA) CAPSULE PO SCH (20:38)
[2018-10-21] MEDS: MELATONIN 3 MG TABLET PO PRN (20:49)
[2018-10-22] VITALS: BP 157/55
[2018-10-22 04:00] VITALS: BP 139/66
--- NOTE | 2018-10-22 04:14 | NUR ---
THIS RN IS PRECEPTING ZACHARIAH WARD RN & AGREES WITH HIS DOCUMENTED ASSESSMENTS DURING THE DURATION OF OUR SHIFT ()
[2018-10-22] MEDS: NYSTATIN ORAL SUSP 5 ML UDC PO SCH (05:54)
[2018-10-22] MEDS: MAGNESIUM OXIDE (MAG-OX)400 MG TAB PO SCH (05:54)
[2018-10-22] MEDS: inSUlin ASPART (NovoLOG) 1 UNIT/0.01 ML (CHARGE PER UNIT) SC SCH (05:55)
[2018-10-22 06:16] LABS: HEMOGLOBIN 10.3 G/DL (11.5-16.0); RED CELL DISTRIBUTION WIDTH 14.9 % (10.0-14.5); WHITE BLOOD COUNT 4.9 10^3/uL (4.3-11.0)
[2018-10-22] MEDS ORDERED: LEVOTHYROXINE 125 MCG (LEVOTHROID) TABLET PO SCH (06:30)
[2018-10-22 07:04] LABS: BILIRUBIN,TOTAL 0.3 MG/DL (0.1-1.0); CALCIUM 9.1 MG/DL (8.5-10.1); CREATININE SERUM 1.18 MG/DL (0.60-1.30); POTASSIUM 4.2 MMOL/L (3.6-5.0); TOTAL PROTEIN 5.8 GM/DL (6.4-8.2)
[2018-10-22 08:00] VITALS: BP 143/51
[2018-10-22] MEDS: LACTOBACILLUS ACIDOPHILUS (PROBIOTIC) CAPSULE PO SCH (08:10)
[2018-10-22] MEDS: ASPIRIN 81 MG CHEW (CHILDREN'S ASA) PO SCH (08:10)
[2018-10-22] MEDS: eZETimibe 10 MG (ZETIA) TABLET PO SCH (08:10)
[2018-10-22] MEDS: MEROPENEM 500 MG/SWFI 10 ML IV PUSH IV SCH ×2 (08:10)
[2018-10-22] MEDS: MEMANTINE 5 MG (NAMENDA) TABLET PO SCH (08:11)
[2018-10-22] MEDS: meTOprolol TARTRATE 25 MG (LOPRESSOR) TABLET PO SCH (08:11)
[2018-10-22] MEDS: hydrALAZINE (APRESOLINE) 25 MG TAB PO SCH (08:12)
--- NOTE | 2018-10-22 08:33 | Discharge Summary ---
Diagnosis/Chief Complaint Date of Admission Oct 17, 2018 at 16:39 Date of Discharge Discharge Date: Oct 22, 2018 Discharge Time: 08:40 Admission Diagnosis Admission Diagnosis Multidrug resistant UTI Chronic kidney disease xcc-wkebgnj-dajywedug diabetes Hypertension hypothyroidism Discharge Diagnosis Multidrug resistant UTI - ESBL Ecoli Chronic kidney disease [id number] diabetes Hypertension hypothyroidism CKD stage 3 edema Reason Hospital Visit Pt is an 82 y /o female who is known to [facility] and was admitted for a multi-drug resistant infection in her urine - rx for ertamenem initially based on their culture - she was admitted by Dr. Pastor as it was the weekend. Discharge Summary Discharge Physical Examination Allergies: Coded Allergies: sertraline (Verified Allergy, Severe, CANNOT BREATHE, 03/14/17) Cephalosporins (Unverified Allergy, Mild, 03/14/17) Iodinated Contrast- Oral and IV Dye (Unverified Allergy, Mild, 03/14/17) Penicillins (Unverified Allergy, Mild, 03/14/17) Shellfish (Unverified Allergy, Mild, 03/14/17) atorvastatin (Unverified Allergy, Mild, 03/14/17) clarithromycin (Unverified Allergy, Mild, 03/14/17) codeine (Unverified Allergy, Mild, PT HAS RECEIVED HYDROMORPHONE IN THE PAST, 03/14/17) diltiazem (Unverified Allergy, Mild, 03/14/17) glucagon (Unverified Allergy, Mild, 03/14/17) lisinopril (Unverified Allergy, Mild, 03/14/17) morphine (Unverified Allergy, Mild, PT HAS RECEIVED HYDROMORPHONE IN THE PAST, 03/14/17) nifedipine (Unverified Allergy, Mild, 03/14/17) paroxetine (Unverified Allergy, Mild, 03/14/17) sulfamethoxazole (Unverified Allergy, Mild, 03/14/17) acetaminophen (Verified Allergy, Unknown, 03/14/17) benzocaine (Verified Allergy, Unknown, methemoglobinemia, 05/14/18) furosemide (Unverified Allergy, Unknown, 03/14/17) latex (Verified Allergy, Unknown, 03/14/17) meperidine (Verified Allergy, Unknown, PATIENT HAS RECEIVED FENTANYL IN THE PAST, 03/14/17) propoxyphene (Verified Allergy, Unknown, 03/14/17) sulindac (Verified Allergy, Unknown, 03/14/17) tramadol (Verified Allergy, Unknown, 04/12/17) Uncoded Allergies: TAPE (Allergy, Unknown, CAN USE PAPER TAPE, 12/08/08) Vitals & I&Os Vital Signs Date Time Temp Pulse Resp B/P (MAP) Pulse Ox O2 Delivery O2 Flow Rate FiO2 10/22/18 08:00 Room Air 10/22/18 08:00 98.6 54 18 143/51 (81) 92 General Appearance: Alert, Oriented X3, Cooperative, No Acute Distress HEENT: Atraumatic, PERRLA, Mucous Memb Moist/[place] Respiratory: Clear to Auscultation, Normal Air Movement Cardiovascular: Regular Rate Abdominal: Normal Bowel Sounds, Soft, No Tenderness Extremities: No Clubbing, Other (edema bilateral lower legs and hands) Skin: No Rashes, No Breakdown Neuro: Cranial Nerves 3-12 NL Psych/Mental Status: Mental Status NL, Mood NL Hospital Course Was the Problem List Reviewed?: Yes Multidrug resistant UTI Chronic kidney disease siw-hxoguaa-obdxukayp diabetes Hypertension hypothyroidism edema of hands IV ertapenem started initially on admission - 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 SSI- hold home glipizide due to fasting blood sugars of 102 resume if trend continues up Hypertension - resume home medications - Hypothyroid - resume home regimen Edema of hands - elevate hands while in bed. swing bed status today Pending Labs Discharge Condition at discharge improving Instructions to patient/family Please see electronic discharge instructions given to patient. Discharge Medications Reviewed and agree with Discharge Medication list on patient's Discharge Instruction sheet Clinical Quality Measures DVT/VTE Risk/Contraindication: Risk Factor Score Per Nursin RFS Level Per Nursing on Admit: 4+=Very High HIRAL WOLF MD Oct 22, 2018 08:33
== END 2018-10-22 09:11 | disposition swing bed (61) | DRG 690 ==
LOC: EDUNIT# 15:00 → ER 15:02 → 4TH 16:39
PROVIDERS: ADMIT Internal Medicine; ATTEND Family Medicine
DX: N30.00 Acute cystitis without hematuria (principal); B96.20 Unspecified Escherichia coli [E. coli] as the cause of diseases classified elsewhere; I12.9 Hypertensive chronic kidney disease with stage 1 through stage 4 chronic kidney disease, or unspecified chronic kidney disease; N18.3 Chronic kidney disease, stage 3 (moderate); I38 Endocarditis, valve unspecified; E11.9 Type 2 diabetes mellitus without complications; E03.9 Hypothyroidism, unspecified; E78.5 Hyperlipidemia, unspecified; Z16.24 Resistance to multiple antibiotics; K21.9 Gastro-esophageal reflux disease without esophagitis; K57.90 Diverticulosis of intestine, part unspecified, without perforation or abscess without bleeding; K44.9 Diaphragmatic hernia without obstruction or gangrene; M19.91 Primary osteoarthritis, unspecified site; R60.0 Localized edema; F41.9 Anxiety disorder, unspecified; F43.10 Post-traumatic stress disorder, unspecified; F32.9 Major depressive disorder, single episode, unspecified; G43.909 Migraine, unspecified, not intractable, without status migrainosus; R01.1 Cardiac murmur, unspecified; Z87.891 Personal history of nicotine dependence; Z88.0 Allergy status to penicillin; Z88.1 Allergy status to other antibiotic agents; Z88.5 Allergy status to narcotic agent; Z91.040 Latex allergy status; Z16.12 Extended spectrum beta lactamase (ESBL) resistance; Z96.60 Presence of unspecified orthopedic joint implant; Z85.828 Personal history of other malignant neoplasm of skin
CPT/HCPCS: 36415; 70450; 76937; 80048; 80053; 81000; 82962; 83605; 85025; 85027; 87040; 87077; 87088; 87181; 87184; 87186; 96374

== ENCOUNTER 2018-10-22 09:37 | Inpatient (IN) | payer MEDICARE, OTHER ==
[~2018-10-22] VITALS: Ht 160 cm; Wt 86.4 kg
[~2018-10-22 09:37] MED LIST changes: +CHOL10007 PO; +CIPR250T3 PO; +ERGO50006 PO; +GLIP5TAB13 PO; +HYDR100T27 PO; +KETO15CR2 TP; +MEMA5TAB16 PO; -OMEP20CA12 PO; +OMEP20CA13 PO; +OMEP40CA36 PO
[2018-10-22] MEDS ORDERED: oxyCODONE/APAP 5/325MG (PERCOCET 5) TABLET PO PRN (09:45)
[2018-10-22] MEDS ORDERED: ANTACID SUSP 30 ML UDC (MYLANTA) PO PRN (09:45)
[2018-10-22] MEDS ORDERED: DIAZEPAM 5 MG (VALIUM) TABLET PO PRN (09:45)
[2018-10-22] MEDS ORDERED: MILK OF MAGNESIA 400 MG/5 ML 30 ML UDC PO PRN (09:45)
[2018-10-22] MEDS ORDERED: ONDANSETRON 4 MG/2 ML (SDV) Z0FRAN IV PRN (09:45)
[2018-10-22] MEDS ORDERED: CATHETER FLUSH 10 ML SYR IV PRN (09:45)
[2018-10-22] MEDS ORDERED: BENZONATATE 100 MG (TESSALON) CAPSULE PO PRN (09:45)
[2018-10-22] MEDS ORDERED: ACETAMINOPHEN 500 MG TAB (TYLENOL) PO PRN (09:45)
[2018-10-22] MEDS ORDERED: ONDANSETRON 4 MG (ZOFRAN) ORAL DISSOLVE TAB PO PRN (09:45)
--- NOTE | 2018-10-22 10:20 | NUR ---
Admission Drug Regimen Review: Date: 10/22/18 Time: 1020 Review Completed, No Issues found
--- OUTSIDE RECORDS SUMMARY | 2018-10-22 10:30 | XMS REPORT | Continuity of Care Document ---
Author Organization Unknown Address Unknown Allergies Active Description Code Type Severity Reaction Onset Reported/Identified Relationship to Patient Clinical Status Yes codeine [id number] Drug Allergy Mild N/A 12/03/2008 Yes Iodinated Contrast Media - IV Dye [id number] Drug Allergy Mild N/A 12/03/2008 Yes Iodinated Contrast Media - Oral and [id number] Drug Allergy Mild N/A 12/03/2008 Yes morphine [id number] Drug Allergy Mild N/A 12/03/2008 Yes LIPATOR LIPATOR Unknown N/A 12/08/2008 Yes meperidine [id number] Drug Allergy Unknown N/A 12/08/2008 Yes TAPE TAPE Unknown CAN USE PAPER T 12/08/2008 Yes sertraline [id number] Drug Allergy Severe CANNOT BREATHE 03/14/2017 Yes atorvastatin [id number] Drug Allergy Mild N/A 03/14/2017 Yes Cephalosporins [id number] Drug Allergy Mild N/A 03/14/2017 Yes clarithromycin [id number] Drug Allergy Mild N/A 03/14/2017 Yes codeine [id number] Drug Allergy Mild PT HAS RECEIVED 03/14/2017 Yes diltiazem [id number] Drug Allergy Mild N/A 03/14/2017 Yes glucagon [id number] Drug Allergy Mild N/A 03/14/2017 Yes Iodinated Contrast- Oral and IV Dye [id number] Drug Allergy Mild N/A 03/14/2017 Yes lisinopril [id number] Drug Allergy Mild N/A 03/14/2017 Yes metoprolol [id number] Drug Allergy Mild N/A 03/14/2017 Yes morphine [id number] Drug Allergy Mild PT HAS RECEIVED 03/14/2017 Yes nifedipine [id number] Drug Allergy Mild N/A 03/14/2017 Yes paroxetine [id number] Drug Allergy Mild N/A 03/14/2017 Yes Penicillins [id number] Drug Allergy Mild N/A 03/14/2017 Yes Shellfish [id number] Drug Allergy Mild N/A 03/14/2017 Yes sulfamethoxazole [id number] Drug Allergy Mild N/A 03/14/2017 Yes acetaminophen [id number] Drug Allergy Unknown N/A 03/14/2017 Yes furosemide [id number] Drug Allergy Unknown N/A 03/14/2017 Yes latex [id number] Drug Allergy Unknown N/A 03/14/2017 Yes meperidine [id number] Drug Allergy Unknown PATIENT HAS REC 03/14/2017 Yes propoxyphene [id number] Drug Allergy Unknown N/A 03/14/2017 Yes sulindac [id number] Drug Allergy Unknown N/A 03/14/2017 Yes tramadol [id number] Drug Allergy Unknown N/A 04/12/2017 Yes benzocaine [id number] Drug Allergy Unknown methemoglobinem 05/14/2018 Medications There is no data. 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 06/29/2010 Ot 793.99 [...] URIN TRACT INFECTION NOS 03/12/2013 SADIQ CHO STRUCTURAL STEEL ENGINEER Ot 599.0 URIN TRACT INFECTION NOS 03/12/2013 SADIQ CHO STRUCTURAL STEEL ENGINEER Ot V58.81 FIT/ADJ VASCULAR CATHETER 02/15/2014 ANNABELLE [...] 599.0 05/13/2014 Ot V58.81 05/13/2014 AMINTA FRANCISCO METER READER CHIEF Ot 389.16 05/13/2014 AMINTA FRANCISCO METER READER CHIEF Ot 389.9 05/13/2014 FRIEDA BARTLETT Ot V76.12 [...] NOS 06/01/2014 Ot 414.01 CORONARY ATHEROSCLEROSIS OF [place] CORON 06/01/2014 Ot 414.4 CORONARY ATHEROSCLEROSIS DUE [...] CHANEL P Ot V72.83 06/22/2014 SADIQ CHO STRUCTURAL STEEL ENGINEER Ot V58.81 06/22/2014 Ot 041.3 06/22/2014 Ot 599.0 06/22/2014 Ot 599.0 06/22/2014 Ot V58.81 06/22/2014 AMINTA FRANCISCO METER READER CHIEF Ot 389.16 06/22/2014 AMINTA FRANCISCO METER READER CHIEF Ot 389.9 06/22/2014 FRIEDA BARTLETT STRUCTURAL STEEL ENGINEER Ot V76.12 06/22/2014 ANNABELLE GASPAR, ARNEL Sal[place] [...] V72.63 PRE-PROCEDURAL LABORATORY EXAMINATION 10/28/2015 Ot V72.81 [id number] CARDIOVASCULAR 10/28/2015 Ot V72.83 EXAM PRE-OPERATIVE NEC [...] V72.84 EXAM PRE-OPERATIVE NOS 10/28/2015 YADIEL GASPAR, HCANEL Ramos Ot 715.36 LOC OSTEOARTH NOS-L/LEG 10/28/2015 CHANEL COTTO MD Ot V72.63 PRE-PROCEDURAL LABORATORY EXAMINATION 10/28/2015 YADIEL GASPAR, CHANEL Ramos Ot V72.83 EXAM PRE-OPERATIVE NEC 10/28/2015 SADIQ CHO STRUCTURAL STEEL ENGINEER Ot V58.81 FIT/ADJ VASCULAR CATHETER 10/28/2015 Ot 041.3 KLEBSIELLA PNEUMONIAE 10/28/2015 Ot 599.0 URIN TRACT INFECTION NOS 10/28/2015 Ot 599.0 URIN TRACT INFECTION NOS 10/28/2015 Ot V58.81 FIT/ADJ VASCULAR CATHETER 10/28/2015 AMINTA FRANCISCO METER READER CHIEF Ot 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, ASYMMETRICAL 10/28/2015 AMINTA FRANCISCO METER READER CHIEF Ot 389.9 HEARING LOSS NOS 10/28/2015 FRIEDA BARTLETT STRUCTURAL STEEL ENGINEER Ot V76.12 OTH SCREEN MAMMO-MALIGN NEOPLASM OF [...] FACC, ALI FACP CCDS Ot 250.00 DIAB YESSIAC WO COMPL, TYPE II OR UNSPEC TY [...] RIVERA DO Ot 611.71 MASTODYNIA 10/28/2015 ROSITA RIVERA DO Ot Z12.31 ENCNTR [...] V72.63 PRE-PROCEDURAL LABORATORY EXAMINATION 01/31/2016 Ot V72.81 [id number] CARDIOVASCULAR 01/31/2016 Ot V72.83 EXAM PRE-OPERATIVE NEC [...] EXAM PRE-OPERATIVE NEC 01/31/2016 MARQUIS SADIQ Brad STRUCTURAL STEEL ENGINEER Ot V58.81 FIT/ADJ VASCULAR CATHETER 01/31/2016 Ot 041.3 KLEBSIELLA PNEUMONIAE 01/31/2016 Ot 599.0 URIN TRACT INFECTION NOS 01/31/2016 Ot 599.0 URIN TRACT INFECTION NOS 01/31/2016 Ot V58.81 FIT/ADJ VASCULAR CATHETER 01/31/2016 AMINTA FRANCISCO METER READER CHIEF Ot 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, ASYMMETRICAL 01/31/2016 AMINTA FRANCISCO METER READER CHIEF Ot 389.9 HEARING LOSS NOS 01/31/2016 DHRUV FRIEDA W STRUCTURAL STEEL ENGINEER Ot V76.12 OTH SCREEN MAMMO-MALIGN NEOPLASM OF [...] UTERI 02/08/2016 ROSITA RIVERA DO Ot Z79.84 BOARD MEMBER (CURRENT) USE OF ORAL HYPOGLYC 02/09/2016 ROSITA [...] 02/09/2016 RIVERA DO, ROSITA C Ot Z79.84 BOARD MEMBER (CURRENT) USE OF ORAL HYPOGLYC 02/10/2016 RIVERA [...] 02/10/2016 RIVERA DO, ROSITA C Ot Z79.84 BOARD MEMBER (CURRENT) USE OF ORAL HYPOGLYC 02/13/2016 RIVERA [...] 02/13/2016 RIVERA DO, ROSITA C Ot Z79.84 SNF (CURRENT) USE OF ORAL HYPOGLYC 06/26/2016 LUCIANO [...] V72.63 PRE-PROCEDURAL LABORATORY EXAMINATION 11/05/2016 Ot V72.81 [id number] CARDIOVASCULAR 11/05/2016 Ot V72.83 EXAM PRE-OPERATIVE NEC [...] V72.83 EXAM PRE-OPERATIVE NEC 11/05/2016 SADIQ CHO STRUCTURAL STEEL ENGINEER Ot V58.81 FIT/ADJ VASCULAR CATHETER 11/05/2016 Ot 041.3 KLEBSIELLA PNEUMONIAE 11/05/2016 Ot 599.0 URIN TRACT INFECTION NOS 11/05/2016 Ot 599.0 URIN TRACT INFECTION NOS 11/05/2016 Ot V58.81 FIT/ADJ VASCULAR CATHETER 11/05/2016 AMINTA FRANCISCO METER READER CHIEF Ot 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, ASYMMETRICAL 11/05/2016 AMINTA FRANCISCO METER READER CHIEF Ot 389.9 HEARING LOSS NOS 11/05/2016 FRIEDA BARTLETT STRUCTURAL STEEL ENGINEER Ot V76.12 OTH SCREEN MAMMO-MALIGN NEOPLASM OF [...] CCDS Ot I25.10 ATHSCL HEART DISEASE OF [place] CORONARY 11/19/2016 ZAIN GASPAR FACC, ALI FACP CCDS Ot I65.23 OCCLUSION AND STENOSIS OF BILATERAL [place] 11/19/2016 ZAIN GASPAR FACC, ALI FACP CCDS Ot R06.09 OTHER FORMS OF DYSPNEA 11/19/2016 ZAIN GASPAR FACC, ALI FACP CCDS Ot R07.89 OTHER CHEST PAIN 11/28/2016 ZAIN GASPAR FACC, ALI FACP CCDS Ot E11.9 TYPE 2 DIABETES MELLITUS WITHOUT COMPLIC 11/28/2016 ZAIN GASPAR FACC, ALI FACP CCDS Ot I25.10 ATHSCL HEART DISEASE OF [place] CORONARY 11/28/2016 ZAIN GASPAR FACC, ALI FACP CCDS Ot I65.23 OCCLUSION AND STENOSIS OF BILATERAL [place] 11/28/2016 ZAIN SCHULERC, ALI FACP CCDS Ot R06.09 OTHER FORMS OF DYSPNEA 11/28/2016 ZAIN GASPAR FACC, ALI FACP CCDS Ot R07.89 OTHER CHEST PAIN 2016 [facility], ALI FACP CCDS Ot E11.9 TYPE 2 DIABETES MELLITUS WITHOUT COMPLIC 2016 ZAIN GASPAR FACC, ALI FACP CCDS Ot I25.10 ATHSCL HEART DISEASE OF [place] CORONARY 2016 ZAIN SCHULERC, ALI FACP CCDS Ot I65.23 OCCLUSION AND STENOSIS OF BILATERAL [place] 2016 ZAIN GASPAR FACC, ALI FACP CCDS Ot R06.09 OTHER FORMS OF DYSPNEA 2016 ZAIN SCHULERC, ALI FACP CCDS Ot R07.89 OTHER CHEST PAIN 12/12/2016 ZAIN GASPRA [facility], ALI FACP CCDS Ot E11.9 TYPE 2 DIABETES MELLITUS WITHOUT COMPLIC 12/12/2016 ZAIN SCHULERC, ALI FACP CCDS Ot I25.10 ATHSCL HEART DISEASE OF [place] CORONARY 12/12/2016 ZAIN GASPAR FACC, ALI FACP CCDS Ot I65.23 OCCLUSION AND STENOSIS OF BILATERAL [place] 12/12/2016 ZAIN GASPAR FACC, ALI FACP CCDS Ot R06.09 OTHER FORMS OF DYSPNEA 12/12/2016 ZAIN GASPAR FACC, ALI FACP CCDS Ot R07.89 OTHER CHEST PAIN 12/12/2016 ROSITA RIVERA DO Ot Z12.31 ENCNTR SCREEN MAMMOGRAM FOR MALIGNANT NE 12/19/2016 ZAIN GASPAR FACC, JENNIFER SCHULERP CCDS Ot E11.9 TYPE 2 DIABETES MELLITUS WITHOUT COMPLIC 12/19/2016 ZAIN GASPAR FACC, JENNIFER FACP CCDS Ot I25.10 ATHSCL HEART DISEASE OF [place] CORONARY 12/19/2016 ZAIN GASPAR FACC, JENNIFER [facility] CCDS Ot I65.23 OCCLUSION AND STENOSIS OF BILATERAL [place] 12/19/2016 ZAIN GASPAR FACC, JENNIFER [facility] CCDS Ot R06.09 OTHER FORMS OF DYSPNEA 12/19/2016 ZAIN GASPAR FACC, JENNIFER [facility] CCDS Ot R07.89 OTHER CHEST PAIN [...] CONTUSION OF RIGHT KNEE, INITIAL ENCOUNT 02/27/2017 ROSA FLORES DO Ot W01.198A FALL SAME LEV FROM SLIP/TRIP W STRIKE AG 02/27/2017 ROSA FLORES DO Ot Y92.000 KITCHEN OF [facility] NON-INSTITUT (PRIVATE) R 02/27/2017 ROSA FLORES DO Ot Z23 ENCOUNTER FOR IMMUNIZATION 02/27/2017 ROSA FLORES DO Ot Z79.82 BOARD MEMBER (CURRENT) USE OF ASPIRIN 02/27/2017 ROSA FLORES DO Ot Z79.84 BOARD MEMBER (CURRENT) USE OF ORAL HYPOGLYC 02/27/2017 ROSA [...] CONTUSION OF RIGHT KNEE, INITIAL ENCOUNT 03/01/2017 MARK MOELLERANNA MARIEA Erma Ot W01.198A FALL SAME LEV FROM SLIP/TRIP W STRIKE AG 03/01/2017 MARK ANNA MARIEA Erma Ot Y92.000 KITCHEN OF [facility] NON-INSTITUT (PRIVATE) R 03/01/2017 MARK ROSA Ot Z23 ENCOUNTER FOR IMMUNIZATION 03/01/2017 ROSA FLORES DO Ot Z79.82 SNF (CURRENT) USE OF ASPIRIN 03/01/2017 ROSA FLORES DO Ot Z79.84 SNF (CURRENT) USE OF ORAL HYPOGLYC 03/01/2017 MARK [...] MD Ot I25.10 ATHSCL HEART DISEASE OF [place] CORONARY 04/14/2017 ARNEL ALANIS MD Ot I73.9 PERIPHERAL VASCULAR DISEASE, UNSPECIFIED 04/14/2017 ARNEL ALANIS MD Ot Z68.34 BODY MASS INDEX (BMI) 34.0-34.9, ADULT 04/14/2017 ARNEL ALANIS MD Ot Z79.82 BOARD MEMBER (CURRENT) USE OF ASPIRIN 04/14/2017 ARNEL ALANIS MD Ot Z79.84 BOARD MEMBER (CURRENT) USE OF ORAL HYPOGLYC 04/14/2017 ARNEL ALANIS MD Ot Z79.899 OTHER BOARD MEMBER (CURRENT) DRUG THERAPY 04/15/2017 ARNEL ALANIS MD [...] MD Ot I25.10 ATHSCL HEART DISEASE OF [place] CORONARY 04/16/2017 ARNEL ALANIS MD Ot I73.9 PERIPHERAL VASCULAR DISEASE, UNSPECIFIED 04/16/2017 ARNEL ALANIS MD Ot Z68.34 BODY MASS INDEX (BMI) 34.0-34.9, ADULT 04/16/2017 ARNEL ALANIS MD Ot Z79.82 BOARD MEMBER (CURRENT) USE OF ASPIRIN 04/16/2017 ARNEL ALANIS MD Ot Z79.84 BOARD MEMBER (CURRENT) USE OF ORAL HYPOGLYC 04/16/2017 ARNEL ALANIS MD Ot Z79.899 OTHER BOARD MEMBER (CURRENT) DRUG THERAPY 04/18/2017 ANNABELLE GASPAR, ARNEL [place] Ot E04.1 NONTOXIC SINGLE THYROID NODULE 05/27/2017 Ot V72.84 EXAM PRE-OPERATIVE NOS 05/27/2017 ANNABELLE GASPAR, ARNEL [place] Ot V72.84 EXAM PRE-OPERATIVE NOS 05/27/2017 YADIEL GASPAR, CHANEL Ramos Ot 715.36 LOC OSTEOARTH NOS-L/LEG 05/27/2017 YADIEL GASPAR, CHANEL Ramos Ot V72.63 PRE-PROCEDURAL LABORATORY EXAMINATION 05/27/2017 YADIEL GASPAR, CHANEL Ramos Ot V72.83 EXAM PRE-OPERATIVE NEC 05/27/2017 SADIQ CHO STRUCTURAL STEEL ENGINEER Ot V58.81 FIT/ADJ VASCULAR CATHETER 05/27/2017 Ot 041.3 KLEBSIELLA PNEUMONIAE 05/27/2017 Ot 599.0 URIN TRACT INFECTION NOS 05/27/2017 Ot 599.0 URIN TRACT INFECTION NOS 05/27/2017 Ot V58.81 FIT/ADJ VASCULAR CATHETER 05/27/2017 AMINTA FRANCISCO METER READER CHIEF Ot 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, ASYMMETRICAL 05/27/2017 AMINTA FRANCISCO METER READER CHIEF Ot 389.9 HEARING LOSS NOS 05/27/2017 FRIEDA BARTLETT STRUCTURAL STEEL ENGINEER Ot V76.12 OTH SCREEN MAMMO-MALIGN NEOPLASM OF [place] 05/27/2017 ANNABELLE GASPAR, ARNEL [place] Ot 562.11 DIVERTICULITIS COLON (W/O MENT OF HEMORR 05/27/2017 ANNABELLE GASPAR, ARNEL [place] Ot 706.2 SEBACEOUS CYST 05/27/2017 ANNABELLE GASPAR, ARNEL [place] Ot 787.91 DIARRHEA 05/27/2017 ANNABELLE GASPAR, ARNEL [place] Ot 791.9 ABN URINE FINDINGS NEC 05/27/2017 ANNABELLE GASPAR, ARNEL [place] Ot V72.63 PRE-PROCEDURAL LABORATORY EXAMINATION 05/27/2017 ANNABELLE GAPSAR, ARNEL [place] Ot V74.8 SCREEN-BACTERIAL DIS NEC [...] CCDS Ot 401.9 HYPERTENSION NOS 05/27/2017 ZAIN GAPSAR FACC, ALI FACP CCDS Ot 414.00 CORON [...] CCDS Ot I25.10 ATHSCL HEART DISEASE OF [place] CORONARY 05/27/2017 ZAIN GASPAR FACC, ALI FACP [...] CCDS Ot I25.10 ATHSCL HEART DISEASE OF [place] CORONARY 05/27/2017 ZAIN GASPAR FACC, ALI FACP CCDS Ot I65.23 OCCLUSION AND STENOSIS OF BILATERAL [place] 05/27/2017 ZAIN GASPAR FACC, ALI FACP CCDS Ot R06.09 OTHER FORMS OF DYSPNEA 05/27/2017 ZAIN GASPAR FACC, ALI FACP CCDS Ot R07.89 OTHER CHEST PAIN 05/27/2017 ROSITA RIVERA DO Ot Z12.31 ENCNTR SCREEN MAMMOGRAM FOR MALIGNANT NE 05/27/2017 RANEL ALANIS MD Ot E04.2 NONTOXIC MULTINODULAR GOITER 05/27/2017 ARNEL ALANIS MD Ot R49.0 DYSPHONIA 05/27/2017 ARNEL ALANIS MD Ot R53.83 OTHER FATIGUE 05/27/2017 ARNEL ALANIS MD Ot R13.10 DYSPHAGIA, UNSPECIFIED 05/27/2017 ARENL ALANIS MD Ot Z01.818 ENCOUNTER FOR OTHER [...] POST-TRAUMATIC STRESS DISORDER, UNSPECIF 07/23/2017 ANNABELLE GASPAR, ARENL [place] Ot G43.909 MIGRAINE, UNSP, NOT INTRACTABLE, WITHOUT 07/23/2017 ARNEL ALANIS MD Ot I10 ESSENTIAL (PRIMARY) HYPERTENSION 07/23/2017 ARNEL ALANIS MD Ot I25.10 ATHSCL HEART DISEASE OF [place] CORONARY 07/23/2017 ARNEL ALANIS MD Ot K21.9 GASTRO-ESOPHAGEAL REFLUX DISEASE WITHOUT 07/23/2017 ARNEL ALANIS MD Ot K22.2 ESOPHAGEAL OBSTRUCTION 07/23/2017 ARNEL ALANIS MD Ot N39.0 URINARY TRACT INFECTION, SITE NOT SPECIF 07/23/2017 ARNEL ALANIS MD Ot Z79.82 BOARD MEMBER (CURRENT) USE OF ASPIRIN 07/23/2017 ARNEL ALANIS MD Ot Z79.84 SNF (CURRENT) USE OF ORAL HYPOGLYC 07/23/2017 ARNEL ALANIS MD Ot Z79.899 OTHER BOARD MEMBER (CURRENT) DRUG THERAPY 07/23/2017 ARNEL ALANIS MD [...] V72.83 EXAM PRE-OPERATIVE NEC 10/09/2017 SADIQ CHO STRUCTURAL STEEL ENGINEER Ot V58.81 FIT/ADJ VASCULAR CATHETER 10/09/2017 Ot 041.3 KLEBSIELLA PNEUMONIAE 10/09/2017 Ot 599.0 URIN TRACT INFECTION NOS 10/09/2017 Ot 599.0 URIN TRACT INFECTION NOS 10/09/2017 Ot V58.81 FIT/ADJ VASCULAR CATHETER 10/09/2017 MARYAM AMINTA J METER READER CHIEF Ot 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, ASYMMETRICAL 10/09/2017 MARYAM AMINTA J METER READER CHIEF Ot 389.9 HEARING LOSS NOS 10/09/2017 FRIEDA BARTLETT STRUCTURAL STEEL ENGINEER Ot V76.12 OTH SCREEN MAMMO-MALIGN NEOPLASM OF [place] 10/09/2017 ANNABELLE GASPAR, ARNLE [place] Ot 562.11 DIVERTICULITIS COLON (W/O MENT [...] CCDS Ot I25.10 ATHSCL HEART DISEASE OF [place] CORONARY 10/09/2017 AZIN GASPAR FACC, ALI FACP CCDS Ot I65.23 [...] CCDS Ot I25.10 ATHSCL HEART DISEASE OF [place] CORONARY 10/09/2017 ZAIN GASPAR FAC, ALI FACP [...] DEGENERATIVE DISEASE OF NERVOUS SYSTEM, 10/10/2017 HIRAL WOFL MD Ot I67.82 CEREBRAL ISCHEMIA 10/15/2017 HIRAL [...] ANNA 05/21/2018 CHANEL COTTO MD Ot Z79.4 BOARD MEMBER (CURRENT) USE OF INSULIN 05/21/2018 CHANEL COTTO MD, Ot Z79.82 SNF (CURRENT) USE OF ASPIRIN 05/21/2018 CHANEL COTTO MD, Ot Z79.899 OTHER BOARD MEMBER (CURRENT) DRUG THERAPY 05/21/2018 CHANEL COTTO MD, [...] ANNA 05/22/2018 CHANEL COTTO MD, Ot Z79.4 SNF (CURRENT) USE OF INSULIN 05/22/2018 CHANEL COTTO MD, Ot Z79.82 BOARD MEMBER (CURRENT) USE OF ASPIRIN 05/22/2018 CHANEL COTTO MD, Ot Z79.899 OTHER BOARD MEMBER (CURRENT) DRUG THERAPY 05/22/2018 CHANEL COTTO MD, [...] ANNA 05/23/2018 CHANEL COTTO MD, Ot Z79.4 BOARD MEMBER (CURRENT) USE OF INSULIN 05/23/2018 CHANEL COTTO MD, Ot Z79.82 BOARD MEMBER (CURRENT) USE OF ASPIRIN 05/23/2018 CHANEL COTTO MD, Ot Z79.899 OTHER SNF (CURRENT) DRUG THERAPY 05/23/2018 CHANEL COTTO MD, [...] CCDS Ot I25.10 ATHSCL HEART DISEASE OF [place] CORONARY 07/14/2018 ZAIN GASPAR FACC, ALI FACP [...] Ot E78.5 HYPERLIPIDEMIA, UNSPECIFIED 07/31/2018 ZAIN GASPAR [facility], ALI FACP CCDS Ot I10 ESSENTIAL (PRIMARY) HYPERTENSION 07/31/2018 ZAIN GASPAR [facility], ALI FACP CCDS Ot I25.10 ATHSCL HEART DISEASE OF [place] CORONARY 07/31/2018 ZAIN GASPAR [facility], ALI FACP CCDS Ot I73.9 PERIPHERAL VASCULAR DISEASE, UNSPECIFIED 07/31/2018 ZAIN GASPAR [facility], ALI FACP CCDS Ot I77.9 DISORDER OF ARTERIES AND ARTERIOLES, UNS 07/31/2018 ZAIN GASPAR [facility], ALI FACP CCDS Ot R07.9 CHEST PAIN, UNSPECIFIED 07/31/2018 ZAIN GASPAR [facility], ALI FACP CCDS Ot R47.81 SLURRED SPEECH [...] Erma Ot I10 ESSENTIAL (PRIMARY) HYPERTENSION 09/12/2018 LA BARGE ROSA MOELLER Ot K21.9 GASTRO-ESOPHAGEAL REFLUX DISEASE WITHOUT 09/12/2018 MARK ROSA MOELLER Ot K52.9 NONINFECTIVE GASTROENTERITIS AND COLITIS 09/12/2018 MARK ROSA MOELLER Ot N39.0 URINARY TRACT INFECTION, SITE NOT SPECIF 09/12/2018 MARK ROSA MOELLER Ot R11.2 NAUSEA WITH VOMITING, UNSPECIFIED 09/12/2018 MARK ROSA MOELLER Ot Z79.82 SNF (CURRENT) USE OF ASPIRIN 09/12/2018 MARK ROSA MOELLER Ot Z79.84 BOARD MEMBER (CURRENT) USE OF ORAL HYPOGLYC 09/12/2018 MARK ROSA MOELLER Ot Z82.49 FAMILY HX OF ISCHEM HEART DIS AND OTH DI 09/12/2018 ROAS FLORES DO Ot Z85.828 PERSONAL HISTORY OF [...] UNSPECIFIED 09/15/2018 MARK ROSA MOELLER Ot Z79.82 SNF (CURRENT) USE OF ASPIRIN 09/15/2018 MARK ROSA MOELLER Ot Z79.84 BOARD MEMBER (CURRENT) USE OF ORAL HYPOGLYC 09/15/2018 MARK [...] ABO+Rh group OP NRG Transfusion band number [id number] NRG Blood group antibody screen NEGATIVE NRG [...] measurement by glucometer (mass/volume) 115 mg/dL 70-110 [id number] - 07/19/16 06:59 Serum or plasma urea [...] culture - 07/22/17 19:25 Bacterial urine culture [id number] NRG COLONY COUNT <10,000 NRG FTX;REPORTABLE SENSITIVITY [...] culture - 02/21/18 14:04 Bacterial urine culture [id number] NRG COLONY COUNT >100,000/ML NRG FTX;REPORTABLE ID [...] culture - 09/12/18 18:54 Bacterial urine culture [id number] NRG COLONY COUNT >100,000/ML NRG FTX;REPORTABLE SUSCEPTIBILITY [...] culture YES NRG Bacterial urine culture - 10/17/18 15:20 Bacterial urine culture [id number] NRG COLONY COUNT >100,000/ML NRG FTX;REPORTABLE SUSCEPTIBILITY REPORTED 10/20/18 11:50 NRG FREE TEXT ENTRY 2 E TEST REPORTED 10/21/18 9:30 NRG FREE TEXT ENTRY 3 ID REPORTED 10/19/18 16:05 NRG Dirithromycin susceptibility test by disk diffusion - 10/17/18 15:20 Gentamicin susceptibility test by minimum inhibitory concentration [...] Nitrofurantoin susceptibility test by minimum inhibitory concentration 64 NRG Amoxicillin and clavulanate potassium susc LUPE R NRG Complete blood count (CBC) with automated [...] g/dL 3.2-4.5 CALCIUM CORRECTED 9.4 mg/dL 8.5-10.1 Bacterial blood culture - 10/17/18 16:01 Bacterial blood culture NG NRG Blood lactic acid measurement (moles/volume) - 10/17/18 16:11 Blood lactic acid measurement (moles/volume) 1.66 mmol/L 0.50- 2.00 Bacterial blood culture - 10/17/18 16:24 Bacterial blood culture NG NRG Capillary blood glucose measurement by glucometer (mass/volume) - 10/17/18 21:01 Capillary blood glucose measurement by glucometer (mass/volume) 103 mg/dL 70-110 Capillary blood glucose measurement by glucometer (mass/volume) - 10/18/18 05:08 Capillary blood glucose measurement by glucometer (mass/volume) 90 mg/dL 70-110 Whole blood basic metabolic panel - 10/18/18 05:24 Serum or plasma sodium measurement (moles/volume) 140 mmol/L 135-145 Serum or plasma potassium measurement (moles/volume) 3.8 mmol/L 3.6-5.0 Serum or plasma chloride measurement (moles/volume) 106 mmol/L 98-107 Carbon dioxide 21 mmol/L 21-32 Serum or plasma anion gap determination (moles/volume) 13 mmol/L 5-14 Serum or plasma urea nitrogen measurement (mass/volume) 33 mg/dL 7-18 Serum or plasma creatinine measurement (mass/volume) 1.53 mg/dL 0.60-1.30 Serum or plasma urea nitrogen/creatinine mass ratio 22 NRG Serum or plasma creatinine measurement with calculation of estimated glomerular filtration rate 33 NRG Serum or plasma glucose measurement (mass/volume) 84 mg/dL 70-105 Serum or plasma calcium measurement (mass/volume) 9.0 mg/dL 8.5-10.1 Capillary blood glucose measurement by glucometer (mass/volume) - 10/18/18 11:45 Capillary blood glucose measurement by glucometer (mass/volume) 143 mg/dL 70-110 Capillary blood glucose measurement by glucometer (mass/volume) - 10/18/18 16:05 Capillary blood glucose measurement by glucometer (mass/volume) 138 mg/dL 70-110 Capillary blood glucose measurement by glucometer (mass/volume) - 10/18/18 21:01 Capillary blood glucose measurement by glucometer (mass/volume) 186 mg/dL 70-110 Capillary blood glucose measurement by glucometer (mass/volume) - 10/18/18 23:39 Capillary blood glucose measurement by glucometer (mass/volume) 91 mg/dL 70-110 Capillary blood glucose measurement by glucometer (mass/volume) - 10/19/18 05:41 Capillary blood glucose measurement by glucometer (mass/volume) 102 mg/dL 70-110 Capillary blood glucose measurement by glucometer (mass/volume) - 10/19/18 10:49 Capillary blood glucose measurement by glucometer (mass/volume) 157 mg/dL 70-110 Capillary blood glucose measurement by glucometer (mass/volume) - 10/19/18 15:51 Capillary blood glucose measurement by glucometer (mass/volume) 113 mg/dL 70-110 Capillary blood glucose measurement by glucometer (mass/volume) - 10/19/18 21:00 Capillary blood glucose measurement by glucometer (mass/volume) 121 mg/dL 70-110 Capillary blood glucose measurement by glucometer (mass/volume) - 10/20/18 00:22 Capillary blood glucose measurement by glucometer (mass/volume) 100 mg/dL 70-110 Capillary blood glucose measurement by glucometer (mass/volume) - 10/20/18 05:48 Capillary blood glucose measurement by glucometer (mass/volume) 101 mg/dL 70-110 Capillary blood glucose measurement by glucometer (mass/volume) - 10/20/18 11:03 Capillary blood glucose measurement by glucometer (mass/volume) 120 mg/dL 70-110 Capillary blood glucose measurement by glucometer (mass/volume) - 10/20/18 16:41 Capillary blood glucose measurement by glucometer (mass/volume) 116 mg/dL 70-110 Capillary blood glucose measurement by glucometer (mass/volume) - 10/20/18 19:38 Capillary blood glucose measurement by glucometer (mass/volume) 124 mg/dL 70-110 Capillary blood glucose measurement by glucometer (mass/volume) - 10/21/18 05:43 Capillary blood glucose measurement by glucometer (mass/volume) 103 mg/dL 70-110 Capillary blood glucose measurement by glucometer (mass/volume) - 10/21/18 12:14 Capillary blood glucose measurement by glucometer (mass/volume) 146 mg/dL 70-110 Capillary blood glucose measurement by glucometer (mass/volume) - 10/21/18 15:44 Capillary blood glucose measurement by glucometer (mass/volume) 156 mg/dL 70-110 Capillary blood glucose measurement by glucometer (mass/volume) - 10/21/18 20:26 Capillary blood glucose measurement by glucometer (mass/volume) 160 mg/dL 70-110 Capillary blood glucose measurement by glucometer (mass/volume) - 10/22/18 05:42 Capillary blood glucose measurement by glucometer (mass/volume) 106 mg/dL 70-110 Automated blood complete blood count (hemogram) panel - 10/22/18 06:05 Blood leukocytes automated count (number/volume) 4.9 10*3/uL 4.3-11.0 Blood erythrocytes automated count (number/volume) 3.61 10*6/uL 4.35-5.85 Venous blood hemoglobin measurement (mass/volume) 10.3 g/dL 11.5-16.0 Blood hematocrit (volume fraction) 34 % 35-52 Automated erythrocyte mean corpuscular volume 93 [foz_us] 80-99 Automated erythrocyte mean corpuscular hemoglobin (mass per erythrocyte) 29 pg 25-34 Automated erythrocyte mean corpuscular hemoglobin concentration measurement (mass/volume) 31 g/dL 32-36 Automated erythrocyte distribution width ratio 14.9 % 10.0- 14.5 Automated blood platelet count (count/volume) 234 10*3/uL 130-400 Automated blood platelet mean volume measurement 10.0 [foz_us] 7.4-10.4 Comprehensive metabolic panel - 10/22/18 06:05 Serum or plasma sodium measurement (moles/volume) 140 mmol/L 135-145 Serum or plasma potassium measurement (moles/volume) 4.2 mmol/L 3.6-5.0 Serum or plasma chloride measurement (moles/volume) 106 mmol/L 98-107 Carbon dioxide 23 mmol/L 21-32 Serum or plasma anion gap determination (moles/volume) 11 mmol/L 5-14 Serum or plasma urea nitrogen measurement (mass/volume) 28 mg/dL 7-18 Serum or plasma creatinine measurement (mass/volume) 1.18 mg/dL 0.60-1.30 Serum or plasma urea nitrogen/creatinine mass ratio 24 NRG Serum or plasma creatinine measurement with calculation of estimated glomerular filtration rate 44 NRG Serum or plasma glucose measurement (mass/volume) 105 mg/dL 70-105 Serum or plasma calcium measurement (mass/volume) 9.1 mg/dL 8.5-10.1 Serum or plasma total bilirubin measurement (mass/volume) 0.3 mg/dL 0.1-1.0 Serum or plasma alkaline phosphatase measurement (enzymatic activity/volume) 44 U/L 40-136 Serum or plasma aspartate aminotransferase measurement (enzymatic activity/volume) 33 U/L 5-34 Serum or plasma alanine aminotransferase measurement (enzymatic activity/volume) 18 U/L 0-55 Serum or plasma protein measurement (mass/volume) 5.8 g/dL 6.4-8.2 Serum or plasma albumin measurement (mass/volume) 3.0 g/dL 3.2-4.5 CALCIUM CORRECTED 9.9 mg/dL 8.5-10.1 Encounters ACCT No. Visit Date/Time Discharge Status Pt. Type Provider Facility Loc./Unit Complaint [id number] 03/16/2014 15:06:04 03/16/2014 23:59:59 CLS Outpatient Rachel Gutierrez [id number] 12/17/2013 14:16:41 12/17/2013 23:59:59 CLS Outpatient Rachel Gutierrez [id number] 09/12/2018 18:17:00 09/12/2018 20:00:00 DIS Emergency ROSA FLORES DO [facility] ER EXPOSURE TO MOLD, N/V/D, BURNING SENSATIONS [id number] 08/22/2018 00:10:00 08/22/2018 23:59:59 CLS Preadmit YADIEL GASPAR, CHANEL Ramos [facility] REHAB PARTIAL RTC TEAR R SHOULDER S/P SCOPE [id number] 08/19/2018 12:50:00 08/21/2018 00:01:00 DIS Outpatient CHANEL COTTO MD [facility] REHAB PARTIAL RTC TEAR R SHOULDER S/P SCOPE [id number] 07/11/2018 09:02:00 07/11/2018 23:59:59 CLS Outpatient ZAIN GASPAR FACC, JENNIFER NIÑO CCDS [facility] CARD CHEST DISCOMFORT,SLURRING OF SPEECH [id number] 05/21/2018 09:08:00 05/21/2018 14:05:00 DIS Outpatient CHANEL COTTO MD [facility] SDC TORN RIGHT ROTATOR CUFF [id number] 05/14/2018 11:50:00 05/14/2018 12:45:00 DIS Outpatient CHANEL COTTO MD [facility] PREOP TORN RIGHT SHOULDER ROTATOR CUFF [id number] 02/21/2018 14:01:00 02/21/2018 23:59:59 CLS Outpatient SADIQ CHO [facility] LAB UTI [id number] 01/13/2018 08:54:00 01/13/2018 23:59:59 CLS Outpatient MARCELO TAVERA MD [facility] RAD CHRONIC KIDNEY DISEASE [id number] 01/09/2018 13:35:00 01/09/2018 23:59:59 CLS Outpatient ROSITA RIVERA DO [facility] RAD SCREENING [id number] 12/14/2017 08:34:00 12/14/2017 23:59:59 CLS Outpatient CHANEL COTTO MD [facility] RAD M75.111 ROTATOR CUFF TEAR PTL RT [id number] 10/09/2017 09:25:00 10/09/2017 23:59:59 CLS Outpatient HIRAL WOLF MD [facility] RAD MEMORY LOSS [id number] 09/30/2017 15:45:00 09/30/2017 23:59:59 CLS Preadmit ROSITA RIVERA DO [facility] RAD SCREENING MAMMOGRAM FOR BREAST CANCER [id number] 07/22/2017 10:12:00 07/23/2017 13:45:00 DIS Outpatient ARNEL ALANIS MD [facility] ENDO GASTRIC ULCERS [id number] 07/17/2017 11:45:00 07/17/2017 12:23:00 DIS Outpatient ARNEL ALANIS MD [facility] PREOP EGD [id number] 04/12/2017 08:42:00 04/14/2017 16:16:00 DIS Outpatient ARNEL ALANIS MD [facility] SDC THYROID NODULES [id number] 04/09/2017 05:39:00 04/09/2017 15:14:00 DIS Outpatient ARNEL ALANIS MD [facility] PREOP THYROID NODULES [id number] 03/28/2017 12:26:00 03/28/2017 23:59:59 CLS Outpatient ARNEL ALANIS MD [facility] RAD THYROID NODULES [id number] 03/15/2017 07:48:00 03/15/2017 23:59:59 CLS Outpatient ARNEL ALANIS MD [facility] RAD INTERMITTENT HOARSENESS, FATIGUE [id number] 03/14/2017 05:50:00 03/14/2017 23:59:59 CLS Outpatient ARNEL ALANIS MD [facility] PREOP EGD [id number] 02/27/2017 18:49:00 02/27/2017 21:51:00 DIS Emergency ROSA FLORES DO [facility] ER FALL [id number] 12/11/2016 12:43:00 12/11/2016 23:59:59 CLS Outpatient ROSITA RIVERA DO [facility] RAD Z12.31 [id number] 11/16/2016 13:17:00 11/16/2016 23:59:59 CLS Outpatient JENNIFER PITTMAN MD, FACC, FACP CCDS [facility] CARD CHEST DISCOMFORT R07.89 [id number] 11/06/2016 12:23:00 11/06/2016 23:59:59 CLS Outpatient JENNIFER PITTMAN MD, FACC, FACP CCDS [facility] CARD CHEST DISCOMFORT R07.89 [id number] 07/17/2016 13:40:00 07/30/2016 14:29:00 DIS Outpatient HIRAL WOLF MD [facility] REHAB GAIT ABNORMALITY; WEAKNESS; FALLING [id number] 07/19/2016 06:52:00 07/19/2016 23:59:59 CLS Outpatient IBMAL BROWN MD [facility] RAD CHRONIC CYSTITIS W/ HEMATURIA [id number] 02/07/2016 06:10:00 02/08/2016 15:15:00 DIS Outpatient ROSITA RIVERA DO [facility] GENITAL PROLAPSE [id number] 01/31/2016 09:09:00 01/31/2016 10:30:00 DIS Outpatient ROSITA RIVERA DO [facility] PREOP GENITAL PROLAPSE [id number] 10/31/2015 09:58:00 10/31/2015 12:30:00 DIS [facility] [id number] 10/28/2015 10:05:00 10/28/2015 23:59:59 CLS Outpatient ROSITA RIVERA DO [facility] RAD SCREENING [id number] 10/27/2015 05:56:00 10/27/2015 11:51:00 DIS Outpatient ARNEL ALANIS MD [facility] PREOP ULCERS [id number] 11/18/2014 09:10:00 11/18/2014 12:03:00 DIS Emergency ALEXI RAMOS MD [facility] ER FALL/MULTIPLE INJURIES [id number] 10/26/2014 14:04:00 10/26/2014 23:59:59 CLS Outpatient ROSITA RIVERA DO [facility] RAD SCREENING [id number] 09/10/2014 13:29:00 09/17/2014 14:34:00 DIS Outpatient CHANEL COTTO MD [facility] REHAB L5 WEAKNESS/PAIN [id number] 05/18/2014 07:18:00 05/18/2014 23:59:59 CLS Outpatient ZAIN GASPAR FACStephen, JENNIFER SCHULERP CCDS [facility] CARD HTN HLP,CP [id number] 05/13/2014 08:50:00 05/13/2014 23:59:59 CLS Outpatient ZAIN GASPAR FACStephen, ALI GANGAP CCDS [facility] CARD CAD,HLP,HTN,CP [id number] 05/11/2014 08:45:00 05/11/2014 23:59:59 CLS Outpatient CHANEL COTTO MD [facility] RAD L HIP TO MID THIGH STRESS FRACTORS [id number] 05/11/2014 07:52:00 05/11/2014 23:59:59 CLS Outpatient BIMAL BROWN MD [facility] RAD CHRONIC CYSTITIS [id number] 05/04/2014 12:06:00 05/04/2014 23:59:59 CLS Outpatient BIMAL BROWN MD [facility] RAD CHRONIC CYSTITIS [id number] 02/15/2014 09:08:00 02/15/2014 13:20:00 DIS Outpatient ARNEL ALANIS MD [facility] SDC DIARRHEA;DIVERTICULOSIS; CYST RIGHT ARM [id number] 02/11/2014 13:08:00 02/11/2014 23:59:59 CLS Outpatient ARNEL ALANIS MD [facility] PREOP DIARRHEA; DIVERTICULOSIS; CYST RIGHT ARM [id number] 07/06/2013 08:59:00 07/06/2013 23:59:59 CLS Outpatient FRIEDA BARTLETT [employer] STE[employer] ENGINEER [facility] RAD SCREENING [id number] 05/19/2013 13:34:00 05/19/2013 23:59:59 CLS Outpatient AMINTA FRANCISCO METER READER CHIEF [facility] RAD HEARING LOSS [id number] 04/22/2013 08:45:00 04/22/2013 23:59:59 CLS Outpatient AMINTA FRANCISCO METER READER CHIEF [facility] RAD ASYMMETRICAL HEARING LOSS [id number] 12/29/2012 15:00:00 03/12/2013 00:01:00 DIS Outpatient SADIQ CHO [employer]URAL STEEL ENGINEER [facility] UTI [id number] 11/30/2012 06:06:00 02/18/2013 00:01:00 DIS Outpatient HIRAL WOLF MD [facility] SURG RCR KLEBSIELLA UTI [id number] 01/05/2013 16:19:00 01/05/2013 23:59:59 CLS Outpatient SADIQ CHO [employer]URAL STEEL ENGINEER [facility] D/C PICC LINE [id number] 10/07/2012 11:41:00 10/31/2012 17:00:00 DIS Outpatient CHANEL COTTO MD [facility] REHAB S/P L TKA [id number] 08/15/2012 11:03:00 08/22/2012 16:45:00 DIS Inpatient LUIS CARLOS VARNER MD [facility] IRF OSTEOARTHRITIS LEFT KNEE [id number] 08/13/2012 08:46:00 08/15/2012 09:30:00 DIS Inpatient CHANEL COTTO MD [facility] SURGICAL OSTEOARTHRITIS LEFT KNEE [id number] 08/05/2012 10:04:00 08/05/2012 23:59:59 CLS Outpatient CHANEL COTTO MD [facility] PREOP OSTEOARTHRITIS LEFT KNEE [id number] 08/04/2012 07:14:00 08/04/2012 10:20:00 DIS [facility] [id number] 07/30/2012 07:23:00 07/30/2012 23:59:59 CLS Outpatient ARNEL ALANIS MD [facility] PREOP ULCERS [id number] 10/17/2018 16:39:00 ACT Inpatient ELROY CARLSON MD [facility] 4TH UTI WITH MULTIDRUG RESISTANT ORGANISM [id number] 11/08/2017 17:45:00 Document Registration [id number] 06/01/2014 07:11:00 Document Registration [id number] 05/13/2014 08:50:00 Document Registration [id number] 05/13/2014 08:50:00 Document Registration [id number] 05/13/2014 08:50:00 Document Registration [id number] 03/13/2013 00:00:00 Document Registration [id number] 02/19/2013 00:00:00 Document Registration [id number] 03/04/2012 13:49:00 Document Registration [id number] 01/23/2012 13:01:00 Document Registration [id number] 01/22/2012 07:38:00 Document Registration [id number] 12/14/2011 10:31:00 Document Registration [id number] 09/27/2011 07:59:00 Document Registration [id number] 09/21/2011 12:20:00 Document Registration [id number] 05/30/2011 06:00:00 Document Registration [id number] 05/28/2011 12:22:00 Document Registration [id number] 06/29/2010 07:39:00 Document Registration [id number] 07/26/2009 10:01:00 Document Registration [id number] 07/15/2009 13:59:00 Document Registration [id number] 01/04/2009 12:05:00 Document Registration [id number] 12/03/2008 08:10:00 Document Registration
[2018-10-22] MEDS: inSUlin ASPART (NovoLOG) 1 UNIT/0.01 ML (CHARGE PER UNIT) SC SCH ×3 (11:08→21:05)
--- NOTE | 2018-10-22 11:15 | NUR ---
JOHN AHN admitted to swing bed status to room 407-1, with an admitting diagnosis of SWB , on 10/22/18 from acute inpatient status. Therapy to evaluate patient for activity needs. JOHN AHN and/or family introduced to surroundings, call light, bed controls, phone, TV, temperature control, lights, meal times, smoking policy, visitor policy, side rail policy, bathrooms, and showers. Patient rights given to patient in the handbook.. JOHN AHN and/or family member verbalized understanding that [facility] is not responsible for the loss or damage to any personal effects or valuables that are kept in the patients possession during their hospitalization. The following care plans were discussed with JOHN AHN: Discharge Planning, medications, pain management, and dehydration. JOHN AHN and/or family verbalizes understanding of the Interdisciplinary Patient Education. Patient and/or family were informed about the Rapid Response Team and its purpose. Call light with in reach and patient demonstrates understanding of how to use. JOHN AHN reports no further needs at this time.
[2018-10-22] MEDS: NYSTATIN ORAL SUSP 5 ML UDC PO SCH ×2 (13:14→17:59)
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
--- NOTE | 2018-10-22 16:27 | Occupational Therapy Eval ---
OT Evaluation-General/PLF Medical Diagnosis Admission Date Oct 22, 2018 at 09:37 Medical Diagnosis: UTI Onset Date: Oct 17, 2018 Therapy Diagnosis Therapy Diagnosis: Weakness Height/Weight Height (Feet): 5 Height (Inches): 3.00 Weight (Pounds): 185 Weight (Ounces): 5.0 Precautions Precautions/Isolations: Contact Isolation Weight Bear Status Weight Bearing Restriction: Weight Bearing/Tolerated Referral Physician: Petra Bhakta MD Referral Reason: Activity Tolerance, Self Care, Evaluation/Treatment, Strengthening/ROM Medical History Pertinent Medical History: DM Additional Medical History Chronic kidney disease, CKD, chronic UTIs, right shoulder surgery in May. Reviewed History: Yes Social History Home: Multilevel Current Living Status: Children Entry Into Home: Stairs With Railing Pt. lives in basement of daughters home. 12 steps. ADL-Prior Level of Function Therapy Code Descriptions/Definitions Functional [place] Measure: 0=Not Assessed/NA 4=Minimal Assistance 1=Total Assistance 5=Supervision or Setup 2=Maximal Assistance 6=Modified [place] 3=Moderate Assistance 7=Complete [place] Therapy Quality Codes: 6 Independent with activity with or without an assistive device 5 Patient requires set up or clean up by helper. Patient completes activity by themselves 4 Supervision or touching assist (CGA). [place] provide cues , steadying assist 3 The helper provides less than half the effort to complete the activity 2 The helper provides more than half the effort to complete the activity 1 Dependent. The helper does all the effort to complete an activity 7 Patient refused to complete or attempt activity 9 The patient did not perform the activity before the current illness or injury 88 Not attempted due to Medical conditions or safety concerns Functional Abilities and Goals: Independent: Patient completed the activities by him/herself, with or without an assistive device, with no assistance from a helper. Needed Some Help: Patient needed partial assistance from another person to complete activities. Dependent: A helper completed the activities for the patient. Unknown: Not Applicable: ADL PLOF Comments Pt. was independent with daily skills, but does report that she was having multiple falls. Self Care: Independent Functional Cognition: Independent DME/Equipment: Bath Chair, Shower DME/Equipment Comments Pt. has rolling walker and front wheeled walker. Only uses rolling walker and only if she is going long distances. Drive Self: Yes (Has not driven in 5 months.) OT Current Status Subjective No pain reported. Appearance Pt. in bed. Alert and oriented. Mental Status/Objective Patient Orientation: Person, Place, Time, Situation Current Hand Dominance: Left Upper Extremity ROM Pt. demonstrates AROM in bilateral shoulders to approximately 90 degrees. States that she had surgery in right shoulder in May., and that it hasn't fully gained strength. Upper Extremity Strength right- 3/5 shoulder 3+/5 elbow and wrist Left- 3/5shoulder 3/5 elbow and wrist. Edema: Pt. has edema in bilateral UE. ADL-Treatment Lower Body Dressing (FIM): 2 (Pt. states that she uses AE to don LE clothing at home. Does not have this here. OT will bring this in for her.) Lower Body Dressing (QC): 2 On/Off Footwear (QC): 2 Transfers (B, C, W/C) (FIM): 5 (SBA supine-sit and sit-stand.) Other Treatments Pt. reports that her main concern is her weakness in upper thigh region, (quads). States that she is weak in both legs here and does not know why. She states that sometimes she has difficulty getting out of bed at home. OT educates her on OT goals, which will include working on UE strength and standing balance for ADL tasks. Pt. verbalizes understanding. Education OT Patient Education: Correct positioning, Modified ADL techniques, Progress toward Goal/Update tx plan, Purpose of tx/functional activities, Reviewed precautions, Rehab process, Transfer techniques Teaching Recipient: Patient Teaching Methods: Demonstration, Discussion Response to Teaching: Verbalize Understanding, Return Demonstration OT Short Term Goals Short Term Goals 1=Demonstrate adherence to instructed precautions during ADL tasks. 2=Patient will verbalize/demonstrate understanding of assistive devices/ modifications for ADL. 3=Patient will improve strength/tolerance for activity to enable patient to perform ADL's. OT Prison Goals Roll Weigher Goals Time Frame: Nov 05, 2018 Eating (FIM): 6 Eating (QC): 6 Groomin Oral Hygiene (QC): 6 Bathing(FIM): 5 Shower/Bathe Self (QC): 5 Upper Body Dressing(FIM): 6 Upper Body Dressing (QC): 6 Lower Body Dressing(FIM): 6 (With AE) Lower Body Dressing (QC): 6 On/Off Footwear (QC): 6 Toileting(FIM): 6 Toileting Hygiene (QC): 6 Transfers (B,C,W/C) (FIM): 6 Toilet/Commode Transfer(FIM): 6 Toilet/Commode Transfer (QC): 6 Shower Transfer(FIM): 5 Additional Goals: 1-Demonstrate ADL Tasks, 2-Verbalize Understanding, 3- ImproveStrength/Neelima 1=Demonstrate adherence to instructed precautions during ADL tasks. 2=Patient will verbalize/demonstrate understanding of assistive devices/modifications for ADL. 3=Patient will improve strength/tolerance for activity to enable patient to perform ADL's. OT Education/Plan Problem List/Assessment Assessment: Decreased Activ Tolerance, Impaired I ADL's, Impaired Self-Care Skills Discharge Recommendations Plan/Recommendations: Continue POC Therapy D/C Recommendations: Home w/ Family Support Equpiment Recommendations-D/C: Hip Kit Treatment Plan/Plan of Care Treatment,Training & Education: Yes Patient would benefit from OT for education, treatment and training to promote independence in ADL's, mobility, safety and/or upper extremity function for ADL's. Plan of Care: ADL Retraining, Functional Mobility, UE Funct Exercise/Act Treatment Duration: Nov 05, 2018 Frequency: 5 times per week Estimated Hrs Per Day: .25 hour per day Agreement: Yes Rehab Potential: Good Time/GCodes Start Time: 15:30 Stop Time: 15:55 Total Time Billed (hr/min): 25 Billed Treatment Time 1, EVL x 10minutes, FA x 15minutes DORIS DENNIS OT Oct 22, 2018 16:27
[2018-10-22] MEDS: MEROPENEM 500 MG in WATER (STERILE) FOR INJECTION 10 ML IV SCH (16:50)
[2018-10-22 18:59] VITALS: BP 182/76
[2018-10-22 20:50] VITALS: BP 174/76
[2018-10-22] MEDS: meTOprolol TARTRATE 25 MG (LOPRESSOR) TABLET PO SCH (21:03)
[2018-10-22] MEDS: FENOFIBRATE 134 MG (LOFIBRA) CAPSULE PO SCH (21:04)
[2018-10-22] MEDS: MEMANTINE 5 MG (NAMENDA) TABLET PO SCH (21:05)
[2018-10-22] MEDS: MELATONIN 3 MG TABLET PO PRN (21:05)
[2018-10-22] MEDS: hydrALAZINE (APRESOLINE) 25 MG TAB PO SCH (21:05)
[2018-10-23] MEDS: MEROPENEM 500 MG in WATER (STERILE) FOR INJECTION 10 ML IV SCH ×4 (00:16→23:59)
[2018-10-23] MEDS: NYSTATIN ORAL SUSP 5 ML UDC PO SCH ×5 (00:16→23:59)
[2018-10-23 05:30] VITALS: BP 156/67
[2018-10-23] MEDS: inSUlin ASPART (NovoLOG) 1 UNIT/0.01 ML (CHARGE PER UNIT) SC SCH ×4 (06:00→20:41)
[2018-10-23] MEDS: MAGNESIUM OXIDE (MAG-OX)400 MG TAB PO SCH (06:35)
[2018-10-23] MEDS: LEVOTHYROXINE 125 MCG (LEVOTHROID) TABLET PO SCH (06:37)
[2018-10-23 06:52] LABS: MEAN PLATELET VOLUME 9.8 FL (7.4-10.4); RED CELL DISTRIBUTION WIDTH 14.7 % (10.0-14.5); WHITE BLOOD COUNT 4.1 10^3/uL (4.3-11.0)
[2018-10-23 07:10] LABS: ALBUMIN 2.9 GM/DL (3.2-4.5); BILIRUBIN,TOTAL 0.3 MG/DL (0.1-1.0); CALCIUM 8.9 MG/DL (8.5-10.1); CREATININE SERUM 1.07 MG/DL (0.60-1.30); POTASSIUM 4.2 MMOL/L (3.6-5.0); TOTAL PROTEIN 5.4 GM/DL (6.4-8.2)
[2018-10-23 07:43] VITALS: BP 172/80
--- NOTE | 2018-10-23 08:45 | Progress Note ---
Subjective Date Seen by a Provider: Oct 23, 2018 Time Seen by a Provider: 08:45 Subjective/Events-last exam pt reports that she is feeling good today - she states that she still has swelling in her hands -but it has improved with elevation of her extremities. she denies abdominal pain, nausea, dizziness, chest pain. Review of Systems General: No Malaise, No Appetite HEENT: No Head Aches, No Dysphasia, No Sore Throat Pulmonary: No Dyspnea, No Cough Cardiovascular: No: Chest Pain, Palpitations Gastrointestinal: No: Nausea, Abdominal Pain Genitourinary: Frequency Neurological: Weakness; No: Confusion Objective Exam Last Set of Vital Signs Vital Signs Date Time Temp Pulse Resp B/P (MAP) Pulse Ox O2 Delivery O2 Flow Rate FiO2 10/23/18 07:43 98.6 57 24 172/80 (110) 96 Room Air Capillary Refill : I&O Intake and Output 10/23/18 00:00 Intake Total 1040 ml Balance 1040 ml Intake Oral 1040 ml # Voids 5 # Bowel Movements 2 Daily Weight Change No General: Alert, Oriented X3, Cooperative, No Acute Distress HEENT: Atraumatic, PERRLA Neck: Supple Lungs: Clear to Auscultation, Normal Air Movement Heart: Regular Rate Abdomen: Normal Bowel Sounds, Soft Extremities: Other (edema of hands and ankles) Skin: No Rashes Neuro: Cranial Nerves 3-12 NL Psych/Mental Status: Mental Status NL, Mood NL Results Lab Laboratory Tests 10/22/18 10:54: Glucometer 158H 10/22/18 16:19: Glucometer 106 10/22/18 20:46: Glucometer 189H 10/23/18 05:23: Glucometer 98 10/23/18 06:45: White Blood Count 4.1L, Red Blood Count 3.46L, Hemoglobin 10.0L, Hematocrit 33L, Mean Corpuscular Volume 94, Mean Corpuscular Hemoglobin 29, Mean Corpuscular Hemoglobin Concent 31L, Red Cell Distribution Width 14.7H, Platelet Count 230, Mean Platelet Volume 9.8, Sodium Level 141, Potassium Level 4.2, Chloride Level 107, Carbon Dioxide Level 25, Anion Gap 9, Blood Urea Nitrogen 25H, Creatinine 1.07, Estimat Glomerular Filtration Rate 49, BUN/Creatinine Ratio 23, Glucose Level 97, Calcium Level 8.9, Corrected Calcium 9.8, Total Bilirubin 0.3, Aspartate Amino Transf (AST/SGOT) 32, Alanine Aminotransferase (ALT/SGPT) 22, Alkaline Phosphatase 42, Total Protein 5.4L, Albumin 2.9L Assessment/Plan Assessment/Plan Assess & Plan/Chief Complaint Multidrug resistant UTI Chronic kidney disease [id number] diabetes Hypertension hypothyroidism edema of hands IV ertapenem started initially on admission - 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 DM - continue to monitor glucose levels. Hypertension - resume home medications - Hypothyroid - resume home regimen Edema of hands - elevate hands while in bed. continue with physical therapy and occupational therapy. Clinical Quality Measures DVT/VTE Risk/Contraindication: Risk Factor Score Per Nursin HIRAL WOLF MD Oct 23, 2018 08:45
--- NOTE | 2018-10-23 08:50 | NUR ---
BP 172/80. 37.5MG METOPROLOL AND 100MG HYDRALAZINE GIVEN WITH MORNING MEDS
[2018-10-23] MEDS: MEMANTINE 5 MG (NAMENDA) TABLET PO SCH ×2 (08:52→20:41)
[2018-10-23] MEDS: eZETimibe 10 MG (ZETIA) TABLET PO SCH (08:52)
[2018-10-23] MEDS: LACTOBACILLUS ACIDOPHILUS (PROBIOTIC) CAPSULE PO SCH (08:52)
[2018-10-23] MEDS: hydrALAZINE (APRESOLINE) 25 MG TAB PO SCH ×2 (08:52→20:39)
[2018-10-23] MEDS: meTOprolol TARTRATE 25 MG (LOPRESSOR) TABLET PO SCH ×2 (08:53→20:40)
[2018-10-23] MEDS: ASPIRIN 81 MG CHEW (CHILDREN'S ASA) PO SCH (08:53)
--- NOTE | 2018-10-23 08:58 | Physical Therapy Daily Note ---
PT Daily Note-Current Subjective Pt. agrees to Rx, states she feels much better. Pain Location: No Pain Reported Mental Status Patient Orientation: Normal For Age Transfers Therapy Code Descriptions/Definitions Functional [place] Measure: 0=Not Assessed/NA 4=Minimal Assistance 1=Total Assistance 5=Supervision or Setup 2=Maximal Assistance 6=Modified [place] 3=Moderate Assistance 7=Complete [place] Therapy Quality Codes: 6 Independent with activity with or without an assistive device 5 Patient requires set up or clean up by helper. Patient completes activity by themselves 4 Supervision or touching assist (CGA). [place] provide cues , steadying assist 3 The helper provides less than half the effort to complete the activity 2 The helper provides more than half the effort to complete the activity 1 Dependent. The helper does all the effort to complete an activity 7 Patient refused to complete or attempt activity 9 The patient did not perform the activity before the current illness or injury 88 Not attempted due to Medical conditions or safety concerns Transfers (B, C, W/C) (FIM): 6 in out bed chair and on off toilet SBA Weight Bearing Right Lower Extremity: Right Full Weight Bearing Left Lower Extremity: Left Full Weight Bearing Gait Training Distance (FIM): 8=660-13 ft Gait Assistive Device: FWW 125ft, 50 ft FWW CGA no LOB, several turns, No fatigue, good safety noted Exercises Supine Ex: Bridging, Ankle pumps, Quad Set, Rolling, Heel Slides, Short Arc Quads, Scooting, Straight leg raise, Hip abd/add Supine Reps: 15 Assessment Current Status: Good Progress PT Lead Teller Goals Long-Term Goals PT Lead Teller Goals Time Frame: Oct 29, 2018 Transfers (B,C,W/C) (FIM): 6 Gait (FIM): 6 Distance: 150' Gait Level of Assist: 6 Gait Assistive Device: FWW Stairs (FIM): 5 # of Steps: 12 Stairs Level Of Assist: 5 PT Plan Treatment/Plan Treatment Plan: Continue Plan of Care Treatment Plan: Bed Mobility, Education, Functional Activity Neelima, Functional Strength, Gait, Safety, Therapeutic Exercise, Transfers Treatment Duration: Oct 29, 2018 Frequency: 6 times per week Estimated Hrs Per Day: .25 hour per day Patient and/or Family Agrees t: Yes Safety Risks/Education Patient Education: Gait Training, Transfer Techniques, Correct Positioning, Disease Process, Safety Issues Teaching Recipient: Patient Teaching Methods: Demonstration, Discussion Response to Teaching: Verbalize Understanding, Return Demonstration, Reinforcement Needed Time/GCodes Time In: 810 Time Out: 835 Total Billed Treatment Time: 25 Total Billed Treatment 1,Ex10m,GT15m G Codes Necessary: MISHA Soto STEVEDORE HOLD Oct 23, 2018 08:58
[2018-10-23] MEDS ORDERED: LEVOTHYROXINE 125 MCG (LEVOTHROID) TABLET PO SCH (09:45)
--- NOTE | 2018-10-23 10:57 | Occupational Ther Daily Note ---
OT Current Status-Daily Note Subjective No pain reported. Appearance Pt. up in chair. Agrees to work with therapy. Mental Status/Objective Patient Orientation: Person, Place, Time, Situation Therapy Code Descriptions/Definitions Functional [place] Measure: 0=Not Assessed/NA 4=Minimal Assistance 1=Total Assistance 5=Supervision or Setup 2=Maximal Assistance 6=Modified [place] 3=Moderate Assistance 7=Complete [place] ADL-Treatment Therapy Code Descriptions/Definitions Functional [place] Measure: 0=Not Assessed/NA 4=Minimal Assistance 1=Total Assistance 5=Supervision or Setup 2=Maximal Assistance 6=Modified [place] 3=Moderate Assistance 7=Complete [place] Therapy Quality Codes: 6 Independent with activity with or without an assistive device 5 Patient requires set up or clean up by helper. Patient completes activity by themselves 4 Supervision or touching assist (CGA). [place] provide cues , steadying assist 3 The helper provides less than half the effort to complete the activity 2 The helper provides more than half the effort to complete the activity 1 Dependent. The helper does all the effort to complete an activity 7 Patient refused to complete or attempt activity 9 The patient did not perform the activity before the current illness or injury 88 Not attempted due to Medical conditions or safety concerns Lower Body Dressing (FIM): 6 (Pt. issued ADL equipment to use in hospital, as she has it at home. Pt. completed doffing/donning slipper socks with AE with no difficulty.) Lower Body Dressing (QC): 6 On/Off Footwear (QC): 6 Pt. also issued red therapy sponge and red theraband. Pt. verbalizes knowledge of UE exercises from previous surgery and therapy. Pt. is educated to complete red sponge exercises x 15 reps x 3 times per day. This will assist with hand strength and with hand swelling. Pt. demonstrates understanding of UE exercises with red theraband, as she was completing these from rotator cuff surgery in May. OT also explains other exercises that will assist with shoulder ROM in right shoulder, such as crawling hand up wall, and across table, then then leaning forward while seated. Pt. verbalizes that she was doing these as well and will continue to do so. OT offers to assist pt. to bathroom before leaving room. Pt. declines. No other needs at this time. Education OT Patient Education: Exercise program, Modified ADL techniques, Progress toward Goal/Update tx plan, Purpose of tx/functional activities, Reviewed precautions, Rehab process, Transfer techniques, Use of adapted equipment Teaching Recipient: Patient Teaching Methods: Demonstration, Discussion Response to Teaching: Verbalize Understanding, Return Demonstration OT Short Term Goals Short Term Goals 1=Demonstrate adherence to instructed precautions during ADL tasks. 2=Patient will verbalize/demonstrate understanding of assistive devices/modifications for ADL. 3=Patient will improve strength/tolerance for activity to enable patient to perform ADL's. OT Chrome Worker Goals Mcfp Goals Time Frame: Nov 05, 2018 Eating (FIM): 6 Eating (QC): 6 Groomin Oral Hygiene (QC): 6 Bathing(FIM): 5 Shower/Bathe Self (QC): 5 Upper Body Dressing(FIM): 6 Upper Body Dressing (QC): 6 Lower Body Dressing(FIM): 6 (With AE) Lower Body Dressing (QC): 6 On/Off Footwear (QC): 6 Toileting(FIM): 6 Toileting Hygiene (QC): 6 Transfers (B,C,W/C) (FIM): 6 Toilet/Commode Transfer(FIM): 6 Toilet/Commode Transfer (QC): 6 Shower Transfer(FIM): 5 Additional Goals: 1-Demonstrate ADL Tasks, 2-Verbalize Understanding, 3- ImproveStrength/Neelima 1=Demonstrate adherence to instructed precautions during ADL tasks. 2=Patient will verbalize/demonstrate understanding of assistive devices/modifications for ADL. 3=Patient will improve strength/tolerance for activity to enable patient to perform ADL's. OT Education/Plan Problem List/Assessment Assessment: Decreased Activ Tolerance Discharge Recommendations Plan/Recommendations: Continue POC Therapy D/C Recommendations: Home w/ Family Support Treatment Plan/Plan of Care Treatment,Training & Education: Yes Patient would benefit from OT for education, treatment and training to promote independence in ADL's, mobility, safety and/or upper extremity function for ADL's. Plan of Care: ADL Retraining, Functional Mobility, UE Funct Exercise/Act Treatment Duration: Nov 05, 2018 Frequency: 5 times per week Estimated Hrs Per Day: .25 hour per day Agreement: Yes Rehab Potential: Good Time/GCodes Start Time: 09:45 Stop Time: 10:00 Total Time Billed (hr/min): 15 Billed Treatment Time 1, ADL DORIS DENNIS OT Oct 23, 2018 10:57
--- NOTE | 2018-10-23 14:15 | NUR ---
Pastoral care visit.
[2018-10-23 18:29] VITALS: BP 150/70
[2018-10-23] MEDS: FENOFIBRATE 134 MG (LOFIBRA) CAPSULE PO SCH (20:40)
[2018-10-23] MEDS: MELATONIN 3 MG TABLET PO PRN (20:40)
[2018-10-23 20:41] VITALS: BP 170/66
[2018-10-24 05:59] VITALS: BP 144/69
[2018-10-24] MEDS: inSUlin ASPART (NovoLOG) 1 UNIT/0.01 ML (CHARGE PER UNIT) SC SCH ×4 (06:36→21:23)
[2018-10-24] MEDS: NYSTATIN ORAL SUSP 5 ML UDC PO SCH ×3 (06:37→17:47)
[2018-10-24] MEDS: LEVOTHYROXINE 125 MCG (LEVOTHROID) TABLET PO SCH (06:37)
[2018-10-24] MEDS: MAGNESIUM OXIDE (MAG-OX)400 MG TAB PO SCH (06:37)
[2018-10-24] MEDS: LACTOBACILLUS ACIDOPHILUS (PROBIOTIC) CAPSULE PO SCH (08:38)
[2018-10-24] MEDS: MEMANTINE 5 MG (NAMENDA) TABLET PO SCH ×2 (08:38→21:22)
[2018-10-24] MEDS: meTOprolol TARTRATE 25 MG (LOPRESSOR) TABLET PO SCH ×2 (08:38→21:23)
[2018-10-24] MEDS: ASPIRIN 81 MG CHEW (CHILDREN'S ASA) PO SCH (08:38)
[2018-10-24] MEDS: eZETimibe 10 MG (ZETIA) TABLET PO SCH (08:38)
[2018-10-24] MEDS: MEROPENEM 500 MG in WATER (STERILE) FOR INJECTION 10 ML IV SCH ×2 (08:38→16:19)
[2018-10-24] MEDS: hydrALAZINE (APRESOLINE) 25 MG TAB PO SCH ×2 (08:51→21:23)
--- NOTE | 2018-10-24 10:20 | Progress Note ---
Subjective Date Seen by a Provider: Oct 24, 2018 Time Seen by a Provider: 10:20 Subjective/Events-last exam PT REPORTS THAT SHE IS FEELING GOOD TODAY -BUT IS SHORT OF BREATH AFTER WORKING WITH THERAPY AND WALKING IN THE [place] WITH NURSING STAFF. SHE STATES THAT SHE DOES NOT HAVE ANY CHEST PAIN, NO NAUSEA, NO ABDOMINAL PAIN, NO DIARRHEA. SHE CONTINUES TO HAVE SOME SWELLING IN HER HANDS, BUT IT IS WORSE IN HER ANKLES. Review of Systems General: Fatigue HEENT: No Head Aches Pulmonary: Dyspnea; No Cough Cardiovascular: Edema (HANDS AND ANKLES); No: Chest Pain, Palpitations Gastrointestinal: No: Nausea, Abdominal Pain Genitourinary: No Dysuria; Frequency Neurological: Weakness; No: Confusion Objective Exam Last Set of Vital Signs Vital Signs Date Time Temp Pulse Resp B/P (MAP) Pulse Ox O2 Delivery O2 Flow Rate FiO2 10/24/18 05:59 97.8 55 18 144/69 (94) 93 Room Air Capillary Refill : I&O Intake and Output 10/24/18 00:00 Intake Total 1364 ml Balance 1364 ml Intake Oral 1354 ml IV Total 10 ml # Voids 8 General: Alert, Oriented X3, Cooperative, No Acute Distress HEENT: Atraumatic, PERRLA Neck: Supple Lungs: Clear to Auscultation Heart: Regular Rate Abdomen: Normal Bowel Sounds, Soft, No Tenderness Extremities: No Clubbing, Other (EDEMA BILATERAL LOWER EXTREMITIES) Skin: No Rashes Neuro: Cranial Nerves 3-12 NL Psych/Mental Status: Mental Status NL, Mood NL Results Lab Laboratory Tests 10/23/18 11:17: Glucometer 114H 10/23/18 16:33: Glucometer 133H 10/23/18 20:11: Glucometer 160H 10/24/18 06:03: Glucometer 91 Assessment/Plan Assessment/Plan Assess & Plan/Chief Complaint Multidrug resistant UTI Chronic kidney disease hjx-[id number] diabetes Hypertension hypothyroidism edema of hands ESBL Ecoli on culture at this facility - pt on meropenem three times daily. - after discussing with the patient and her family - the burden of transport for three times daily antibiotics is too great and therefore we will plan on swing bed for continued iv antibiotics. DM - continue to monitor glucose levels. pt on ssi Hypertension - resumed home medications Hypothyroid - resume home regimen Edema of hands - elevate hands while in bed. - rx for iv lasix x 4 days at 10 mg lasix - low doses due to pt not tolerating higher levels of lasix per her report. continue with physical therapy and occupational therapy. Clinical Quality Measures DVT/VTE Risk/Contraindication: Risk Factor Score Per Nursin HIRAL WOLF MD Oct 24, 2018 10:20
[2018-10-24] MEDS ORDERED: FUROSEMIDE 40 MG/4 ML INJ (LASIX) IVP NR (12:00)
--- NOTE | 2018-10-24 14:39 | Occupational Ther Daily Note ---
OT Current Status-Daily Note Subjective Pt sitting in chair, agrees to therapy. Mental Status/Objective Therapy Code Descriptions/Definitions Functional [place] Measure: 0=Not Assessed/NA 4=Minimal Assistance 1=Total Assistance 5=Supervision or Setup 2=Maximal Assistance 6=Modified [place] 3=Moderate Assistance 7=Complete [place] ADL-Treatment Pt sit to stand with modified independence. Gait to restroom with FWW. Pt transferred to toilet with modified independence. Pt able to complete toileting hygiene and clothing management with modified independence. Stood at sink to wash hands with modified independence. Pt returned to chair with FWW. Pt completed hand er physician exercises with pink therapy foam to increase strength. Pt also demonstrated knowledge of UE exercises. Pt sitting in chair with needs met after session. Therapy Code Descriptions/Definitions Functional [place] Measure: 0=Not Assessed/NA 4=Minimal Assistance 1=Total Assistance 5=Supervision or Setup 2=Maximal Assistance 6=Modified [place] 3=Moderate Assistance 7=Complete [place] Therapy Quality Codes: 6 Independent with activity with or without an assistive device 5 Patient requires set up or clean up by helper. Patient completes activity by themselves 4 Supervision or touching assist (CGA). [place] provide cues , steadying assist 3 The helper provides less than half the effort to complete the activity 2 The helper provides more than half the effort to complete the activity 1 Dependent. The helper does all the effort to complete an activity 7 Patient refused to complete or attempt activity 9 The patient did not perform the activity before the current illness or injury 88 Not attempted due to Medical conditions or safety concerns Toileting (FIM): 6 Toileting Hygiene (QC): 6 Toilet/Commode Transfer (FIM): 6 Toilet Transfer (QC): 6 OT Short Term Goals Short Term Goals 1=Demonstrate adherence to instructed precautions during ADL tasks. 2=Patient will verbalize/demonstrate understanding of assistive devices/modifications for ADL. 3=Patient will improve strength/tolerance for activity to enable patient to perform ADL's. OT Mcfp Goals Mcfp Goals Time Frame: Nov 05, 2018 Eating (FIM): 6 Eating (QC): 6 Groomin Oral Hygiene (QC): 6 Bathing(FIM): 5 Shower/Bathe Self (QC): 5 Upper Body Dressing(FIM): 6 Upper Body Dressing (QC): 6 Lower Body Dressing(FIM): 6 (With AE) Lower Body Dressing (QC): 6 On/Off Footwear (QC): 6 Toileting(FIM): 6 Toileting Hygiene (QC): 6 Transfers (B,C,W/C) (FIM): 6 Toilet/Commode Transfer(FIM): 6 Toilet/Commode Transfer (QC): 6 Shower Transfer(FIM): 5 Additional Goals: 1-Demonstrate ADL Tasks, 2-Verbalize Understanding, 3- ImproveStrength/Neelima 1=Demonstrate adherence to instructed precautions during ADL tasks. 2=Patient will verbalize/demonstrate understanding of assistive devices/modifications for ADL. 3=Patient will improve strength/tolerance for activity to enable patient to perform ADL's. OT Education/Plan Discharge Recommendations Plan/Recommendations: Continue POC Treatment Plan/Plan of Care Patient would benefit from OT for education, treatment and training to promote independence in ADL's, mobility, safety and/or upper extremity function for ADL's. Plan of Care: ADL Retraining, Functional Mobility, UE Funct Exercise/Act Treatment Duration: Nov 05, 2018 Frequency: 5 times per week Estimated Hrs Per Day: .25 hour per day Agreement: Yes Rehab Potential: Good Time/GCodes Start Time: 13:33 Stop Time: 13:49 Total Time Billed (hr/min): 16 Billed Treatment Time 1 visit, ADL(16minutes) JESUS LADD OT Oct 24, 2018 14:39
--- NOTE | 2018-10-24 15:53 | Physical Therapy Daily Note ---
PT Daily Note-Current Subjective Pt. agrees to Rx. States she has been approved to be [place] for [place] Pain Location: No Pain Reported Mental Status Patient Orientation: Normal For Age Transfers Therapy Code Descriptions/Definitions Functional [place] Measure: 0=Not Assessed/NA 4=Minimal Assistance 1=Total Assistance 5=Supervision or Setup 2=Maximal Assistance 6=Modified [place] 3=Moderate Assistance 7=Complete [place] Therapy Quality Codes: 6 Independent with activity with or without an assistive device 5 Patient requires set up or clean up by helper. Patient completes activity by themselves 4 Supervision or touching assist (CGA). [place] provide cues , steadying assist 3 The helper provides less than half the effort to complete the activity 2 The helper provides more than half the effort to complete the activity 1 Dependent. The helper does all the effort to complete an activity 7 Patient refused to complete or attempt activity 9 The patient did not perform the activity before the current illness or injury 88 Not attempted due to Medical conditions or safety concerns all TRFs Mod I Weight Bearing Right Lower Extremity: Right Full Weight Bearing Left Lower Extremity: Left Full Weight Bearing Gait Training Gait Assistive Device: FWW 25,150x2 FWW SBA, no LOB, some fatigue reported Exercises Seated Therapy Exercises: Ankle pumps, Sit to stand, Long arc quads, Hip flexion, Hip abd/add Seated Reps: 12 Assessment Current Status: Good Progress PT [facility] Goals Carriage [facility]ger Goals PT Carriage Dogger Goals Time Frame: Oct 29, 2018 Transfers (B,C,W/C) (FIM): 6 Gait (FIM): 6 Distance: 150' Gait Level of Assist: 6 Gait Assistive Device: FWW Stairs (FIM): 5 # of Steps: 12 Stairs Level Of Assist: 5 PT Plan Treatment/Plan Treatment Plan: Continue Plan of Care Treatment Plan: Bed Mobility, Education, Functional Activity Neelima, Functional Strength, Gait, Safety, Therapeutic Exercise, Transfers Treatment Duration: Oct 29, 2018 Frequency: 6 times per week Estimated Hrs Per Day: .25 hour per day Patient and/or Family Agrees t: Yes Safety Risks/Education Patient Education: Gait Training, Transfer Techniques, Correct Positioning, Disease Process, Safety Issues Teaching Recipient: Patient Teaching Methods: Demonstration, Discussion Response to Teaching: Verbalize Understanding, Return Demonstration, Reinforcement Needed Time/GCodes Time In: 1440 Time Out: 1505 Total Billed Treatment Time: 25 Total Billed Treatment 1,Gt15m,Ex10m G Codes Necessary: No MISHA GARCIA ELECTRONIC RESOURCES LIBRARIAN Oct 24, 2018 15:53
[2018-10-24 18:00] VITALS: BP 187/74
[2018-10-24] MEDS: MELATONIN 3 MG TABLET PO PRN (21:22)
[2018-10-24] MEDS: FENOFIBRATE 134 MG (LOFIBRA) CAPSULE PO SCH (21:23)
[2018-10-25] MEDS: MEROPENEM 500 MG in WATER (STERILE) FOR INJECTION 10 ML IV SCH ×4 (01:09→23:27)
[2018-10-25] MEDS: NYSTATIN ORAL SUSP 5 ML UDC PO SCH ×5 (01:09→23:26)
[2018-10-25] MEDS: inSUlin ASPART (NovoLOG) 1 UNIT/0.01 ML (CHARGE PER UNIT) SC SCH ×4 (05:14→21:05)
[2018-10-25] MEDS: LEVOTHYROXINE 125 MCG (LEVOTHROID) TABLET PO SCH (05:52)
[2018-10-25] MEDS: MAGNESIUM OXIDE (MAG-OX)400 MG TAB PO SCH (05:53)
[2018-10-25 06:30] LABS: HEMOGLOBIN 10.2 G/DL (11.5-16.0); MEAN PLATELET VOLUME 9.8 FL (7.4-10.4); RED CELL DISTRIBUTION WIDTH 14.7 % (10.0-14.5); WHITE BLOOD COUNT 4.6 10^3/uL (4.3-11.0)
[2018-10-25 06:34] VITALS: BP 168/76
[2018-10-25 06:54] LABS: CALCIUM 8.9 MG/DL (8.5-10.1); CREATININE SERUM 1.11 MG/DL (0.60-1.30)
[2018-10-25] MEDS: FUROSEMIDE 40 MG/4 ML INJ (LASIX) IVP SCH (09:33)
[2018-10-25] MEDS: MEMANTINE 5 MG (NAMENDA) TABLET PO SCH ×2 (09:34→21:05)
[2018-10-25] MEDS: eZETimibe 10 MG (ZETIA) TABLET PO SCH (09:34)
[2018-10-25] MEDS: hydrALAZINE (APRESOLINE) 25 MG TAB PO SCH ×2 (09:34→21:07)
[2018-10-25] MEDS: LACTOBACILLUS ACIDOPHILUS (PROBIOTIC) CAPSULE PO SCH (09:34)
[2018-10-25] MEDS: ASPIRIN 81 MG CHEW (CHILDREN'S ASA) PO SCH (09:34)
[2018-10-25] MEDS: meTOprolol TARTRATE 25 MG (LOPRESSOR) TABLET PO SCH ×2 (09:34→21:05)
--- NOTE | 2018-10-25 12:21 | Physical Therapy Daily Note ---
PT Daily Note-Current Subjective Pt is agreeable to treatment. Mental Status Patient Orientation: Person, Place, Time, Situation Transfers Therapy Code Descriptions/Definitions Functional [place] Measure: 0=Not Assessed/NA 4=Minimal Assistance 1=Total Assistance 5=Supervision or Setup 2=Maximal Assistance 6=Modified [place] 3=Moderate Assistance 7=Complete [place] Therapy Quality Codes: 6 Independent with activity with or without an assistive device 5 Patient requires set up or clean up by helper. Patient completes activity by themselves 4 Supervision or touching assist (CGA). [place] provide cues , steadying assist 3 The helper provides less than half the effort to complete the activity 2 The helper provides more than half the effort to complete the activity 1 Dependent. The helper does all the effort to complete an activity 7 Patient refused to complete or attempt activity 9 The patient did not perform the activity before the current illness or injury 88 Not attempted due to Medical conditions or safety concerns Transfers (B, C, W/C) (FIM): 5 Scootin Rollin Roll Left to Right (QC): 5 Supine to/from Sit: 5 Sit to/from Stand: 5 Sit to Lying (QC): 5 Sit to Stand (QC): 5 Weight Bearing Right Lower Extremity: Right Full Weight Bearing Left Lower Extremity: Left Full Weight Bearing Gait Training Does the Patient Walk?: Yes Gait (FIM): 6 Distance (FIM): 3=150 ft Distance: 450ft Walk 10 feet (QC): 6 Walk 50 ft with 2 Turns(QC): 6 Walk 150 ft (QC): 6 Gait Level of Assist: 6 Gait Persons Needed: 1 Gait Assistive Device: FWW Wheelchair Training Does the Pt Use a Wheelchair?: No Exercises Supine Ex: LE Protocol Supine Reps: 20 Assessment Current Status: Excellent Progress Good activity tolerance and safe ambulation. PT [facility] Goals Director Of Catering Goals PT [facility] Goals Time Frame: Oct 29, 2018 Transfers (B,C,W/C) (FIM): 6 Sit to Lying (QC): 6 Lying-Sitting on Side/Bed(QC): 6 Sit to Stand (QC): 6 Rollin Roll Left to Right (QC): 6 Chair/Dyh-ac-Zarav Xfer(QC): 6 Gait (FIM): 6 Distance: 150' Walk 10 feet (QC): 6 Walk 50ft with 2 Turns (QC): 6 Walk 150 ft (QC): 6 Gait Level of Assist: 6 Gait Assistive Device: FWW Stairs (FIM): 5 # of Steps: 12 1 Step (curb) (QC): 4 4 Steps (QC): 4 12 Steps (QC): 4 Stairs Level Of Assist: 5 PT Plan Treatment/Plan Treatment Plan: Continue Plan of Care Treatment Plan: Bed Mobility, Education, Functional Activity Neelima, Functional Strength, Gait, Safety, Therapeutic Exercise, Transfers Treatment Duration: Oct 29, 2018 Frequency: 6 times per week Estimated Hrs Per Day: .25 hour per day Patient and/or Family Agrees t: Yes Time/GCodes Time In: 0820 Time Out: 0845 Total Billed Treatment Time: 25 Total Billed Treatment 1, gt x2 25 JORDYN GILES PT Oct 25, 2018 12:21
[2018-10-25 18:09] VITALS: BP 134/68
[2018-10-25] MEDS: FENOFIBRATE 134 MG (LOFIBRA) CAPSULE PO SCH (21:05)
[2018-10-25] MEDS: MELATONIN 3 MG TABLET PO PRN (21:10)
[2018-10-26 05:31] VITALS: BP 150/65
[2018-10-26] MEDS: inSUlin ASPART (NovoLOG) 1 UNIT/0.01 ML (CHARGE PER UNIT) SC SCH ×4 (06:07→21:41)
[2018-10-26] MEDS: LEVOTHYROXINE 125 MCG (LEVOTHROID) TABLET PO SCH (06:07)
[2018-10-26] MEDS: MAGNESIUM OXIDE (MAG-OX)400 MG TAB PO SCH (06:07)
[2018-10-26] MEDS: NYSTATIN ORAL SUSP 5 ML UDC PO SCH ×4 (06:08→23:33)
[2018-10-26] MEDS: LACTOBACILLUS ACIDOPHILUS (PROBIOTIC) CAPSULE PO SCH (09:22)
[2018-10-26] MEDS: eZETimibe 10 MG (ZETIA) TABLET PO SCH (09:22)
[2018-10-26] MEDS: MEROPENEM 500 MG in WATER (STERILE) FOR INJECTION 10 ML IV SCH ×3 (09:22→23:33)
[2018-10-26] MEDS: FUROSEMIDE 40 MG/4 ML INJ (LASIX) IVP SCH (09:22)
[2018-10-26] MEDS: meTOprolol TARTRATE 25 MG (LOPRESSOR) TABLET PO SCH ×2 (09:22→21:40)
[2018-10-26] MEDS: ASPIRIN 81 MG CHEW (CHILDREN'S ASA) PO SCH (09:23)
[2018-10-26] MEDS: MEMANTINE 5 MG (NAMENDA) TABLET PO SCH ×2 (09:23→21:40)
[2018-10-26] MEDS: hydrALAZINE (APRESOLINE) 25 MG TAB PO SCH ×2 (09:23→21:40)
[2018-10-26 17:30] VITALS: BP 183/68
[2018-10-26] MEDS: FENOFIBRATE 134 MG (LOFIBRA) CAPSULE PO SCH (21:40)
[2018-10-27] MEDS: MELATONIN 3 MG TABLET PO PRN ×2 (01:31→21:50)
[2018-10-27 05:22] LABS: HEMOGLOBIN 9.9 G/DL (11.5-16.0); MEAN PLATELET VOLUME 10.1 FL (7.4-10.4); RED CELL DISTRIBUTION WIDTH 14.6 % (10.0-14.5); WHITE BLOOD COUNT 5.1 10^3/uL (4.3-11.0)
[2018-10-27 05:39] LABS: CALCIUM 8.5 MG/DL (8.5-10.1); CREATININE SERUM 1.15 MG/DL (0.60-1.30); POTASSIUM 4.1 MMOL/L (3.6-5.0)
[2018-10-27 05:50] VITALS: BP 150/66
[2018-10-27] MEDS: LEVOTHYROXINE 125 MCG (LEVOTHROID) TABLET PO SCH (05:50)
[2018-10-27] MEDS: inSUlin ASPART (NovoLOG) 1 UNIT/0.01 ML (CHARGE PER UNIT) SC SCH ×4 (05:50→21:20)
[2018-10-27] MEDS: NYSTATIN ORAL SUSP 5 ML UDC PO SCH ×3 (05:50→17:40)
[2018-10-27] MEDS: MAGNESIUM OXIDE (MAG-OX)400 MG TAB PO SCH (05:51)
--- NOTE | 2018-10-27 08:25 | Progress Note ---
Subjective Date Seen by a Provider: Oct 27, 2018 Time Seen by a Provider: 08:25 Subjective/Events-last exam PT REPORTS THAT SHE IS FEELING BETTER - SHE NOTES THAT SHE STILL HAS SOME SWELLING IN HER HANDS, LEGS, SHE STATES THAT SHE CONTINUES TO HAVE FREQUENT URINATION. SHE DENIES CHEST PAIN, SHORTNESS OF BREATH, ABDOMINAL PAIN, DIZZINESS. Review of Systems General: Fatigue HEENT: No Head Aches Pulmonary: No Cough Cardiovascular: No: Chest Pain, Palpitations Gastrointestinal: No: Nausea, Abdominal Pain, Diarrhea Genitourinary: No Dysuria; Frequency Neurological: No: Weakness, Confusion Objective Exam Last Set of Vital Signs Vital Signs Date Time Temp Pulse Resp B/P (MAP) Pulse Ox O2 Delivery O2 Flow Rate FiO2 10/27/18 05:50 97.8 54 18 150/66 (94) 94 Room Air Capillary Refill : I&O Intake and Output 10/27/18 00:00 Intake Total 1940 ml Balance 1940 ml Intake Oral 1940 ml # Voids 8 # Bowel Movements 2 General: Alert, Oriented X3, Cooperative, No Acute Distress HEENT: Atraumatic, PERRLA, Mucous Memb Moist/[place] Neck: Supple Lungs: Clear to Auscultation, Normal Air Movement Heart: Regular Rate Abdomen: Normal Bowel Sounds, Soft, No Tenderness Extremities: No Clubbing, No Cyanosis, Other (2+ PITTING BILATERAL LOWER EXTREMITIES) Skin: No Rashes Neuro: Cranial Nerves 3-12 NL Psych/Mental Status: Mental Status NL, Mood NL Results Lab Laboratory Tests 10/26/18 11:15: Glucometer 113H 10/26/18 16:32: Glucometer 216H 10/26/18 20:48: Glucometer 96 10/27/18 04:33: White Blood Count 5.1, Red Blood Count 3.37L, Hemoglobin 9.9L, Hematocrit 32L, Mean Corpuscular Volume 95, Mean Corpuscular Hemoglobin 29, Mean Corpuscular Hemoglobin Concent 31L, Red Cell Distribution Width 14.6H, Platelet Count 245, Mean Platelet Volume 10.1, Sodium Level 141, Potassium Level 4.1, Chloride Level 106, Carbon Dioxide Level 24, Anion Gap 11, Blood Urea Nitrogen 29H, Creatinine 1.15, Estimat Glomerular Filtration Rate 45, BUN/Creatinine Ratio 25, Glucose Level 90, Calcium Level 8.5 Assessment/Plan Assessment/Plan Assess & Plan/Chief Complaint Multidrug resistant UTI Chronic kidney disease vvv-imsjanf-gckiddodg diabetes Hypertension hypothyroidism edema of hands and lower legs ESBL Ecoli on culture at this facility - pt on meropenem three times daily. - pt was placed on swing bed for iv antibiotics - planning on the pt to be discharged on Saturday. DM - continue to monitor glucose levels. pt on ssi Hypertension - resumed home medications Hypothyroid - resume home regimen Edema of hands and lower legs - continue with iv lasix. continue with physical therapy and occupational therapy. Clinical Quality Measures DVT/VTE Risk/Contraindication: Risk Factor Score Per Nursin HIRAL WOLF MD Oct 27, 2018 08:25
[2018-10-27] MEDS: FUROSEMIDE 40 MG/4 ML INJ (LASIX) IVP SCH (08:56)
[2018-10-27] MEDS: MEROPENEM 500 MG in WATER (STERILE) FOR INJECTION 10 ML IV SCH ×2 (08:56→17:40)
[2018-10-27] MEDS: LACTOBACILLUS ACIDOPHILUS (PROBIOTIC) CAPSULE PO SCH (08:56)
[2018-10-27] MEDS: hydrALAZINE (APRESOLINE) 25 MG TAB PO SCH ×2 (08:57→21:51)
[2018-10-27] MEDS: ASPIRIN 81 MG CHEW (CHILDREN'S ASA) PO SCH (08:57)
[2018-10-27] MEDS: eZETimibe 10 MG (ZETIA) TABLET PO SCH (08:57)
[2018-10-27] MEDS: meTOprolol TARTRATE 25 MG (LOPRESSOR) TABLET PO SCH ×2 (08:57→21:56)
[2018-10-27] MEDS: MEMANTINE 5 MG (NAMENDA) TABLET PO SCH ×2 (08:57→21:50)
--- NOTE | 2018-10-27 13:21 | Physical Therapy Daily Note ---
PT Daily Note-Current Subjective Pt denies pain. Pt reports she is improving, agreeable to treatment. Pt notes she is retaining fluid in her legs and hands. Mental Status Patient Orientation: Person, Place, Situation Transfers Therapy Code Descriptions/Definitions Functional [place] Measure: 0=Not Assessed/NA 4=Minimal Assistance 1=Total Assistance 5=Supervision or Setup 2=Maximal Assistance 6=Modified [place] 3=Moderate Assistance 7=Complete [place] Therapy Quality Codes: 6 Independent with activity with or without an assistive device 5 Patient requires set up or clean up by helper. Patient completes activity by themselves 4 Supervision or touching assist (CGA). [place] provide cues , steadying assist 3 The helper provides less than half the effort to complete the activity 2 The helper provides more than half the effort to complete the activity 1 Dependent. The helper does all the effort to complete an activity 7 Patient refused to complete or attempt activity 9 The patient did not perform the activity before the current illness or injury 88 Not attempted due to Medical conditions or safety concerns Weight Bearing Right Lower Extremity: Right Full Weight Bearing Left Lower Extremity: Left Full Weight Bearing Treatments Transfers mod (I) all levels. Pt performed seated LAQ, hip flexion, heel raise x 15-20 each. AAROM (R) UE flexion x 20 reps. Pt amb with FWW x 300ft, CGA and steady speed. Pt sitting in recliner with breakfast and call light post therapy session. Assessment Current Status: Good Progress Pt mando well. Mod (I) with mobility. Good endurance with gait training. Pt in chair with call light and all needs met post therapy session. PT [facility] Goals [facility] Goals PT [facility] Goals Time Frame: Oct 29, 2018 Transfers (B,C,W/C) (FIM): 6 Gait (FIM): 6 Distance: 150' Gait Level of Assist: 6 Gait Assistive Device: FWW Stairs (FIM): 5 # of Steps: 12 Stairs Level Of Assist: 5 PT Plan Treatment/Plan Treatment Plan: Continue Plan of Care Treatment Plan: Bed Mobility, Education, Functional Activity Neelima, Functional Strength, Gait, Safety, Therapeutic Exercise, Transfers Treatment Duration: Oct 29, 2018 Frequency: 6 times per week Estimated Hrs Per Day: .25 hour per day Patient and/or Family Agrees t: Yes Time/GCodes Time In: 910 Time Out: 935 Total Billed Treatment Time: 25 Total Billed Treatment 1, ther ex 10min, gait 15min JHOANA,KIM CPTA Oct 27, 2018 13:21
--- NOTE | 2018-10-27 15:26 | Occupational Ther Daily Note ---
OT Current Status-Daily Note Subjective No pain reported. Appearance Pt. up in chair. Agrees to work with OT. Mental Status/Objective Patient Orientation: Person, Place, Time, Situation Therapy Code Descriptions/Definitions Functional [place] Measure: 0=Not Assessed/NA 4=Minimal Assistance 1=Total Assistance 5=Supervision or Setup 2=Maximal Assistance 6=Modified [place] 3=Moderate Assistance 7=Complete [place] ADL-Treatment Therapy Code Descriptions/Definitions Functional [place] Measure: 0=Not Assessed/NA 4=Minimal Assistance 1=Total Assistance 5=Supervision or Setup 2=Maximal Assistance 6=Modified [place] 3=Moderate Assistance 7=Complete [place] Therapy Quality Codes: 6 Independent with activity with or without an assistive device 5 Patient requires set up or clean up by helper. Patient completes activity by themselves 4 Supervision or touching assist (CGA). [place] provide cues , steadying assist 3 The helper provides less than half the effort to complete the activity 2 The helper provides more than half the effort to complete the activity 1 Dependent. The helper does all the effort to complete an activity 7 Patient refused to complete or attempt activity 9 The patient did not perform the activity before the current illness or injury 88 Not attempted due to Medical conditions or safety concerns Transfers (B, C, W/C) (FIM): 7 Toilet/Commode Transfer (FIM): 7 Toilet Transfer (QC): 6 Other Treatment Pt. up in chair. Pt. is fully dressed and has bathed herself. Pt. states that she takes herself to bathroom. Pt. is completing red theraband exercises on her own in room. States that she is using AE that OT provided last week for LE dressing. Pt. states that she is doing well. OT observed pt. ambulate to bathroom and toilet with independence. Transferred back to chair and OT applied SCDs on LE. All needs met. Education OT Patient Education: Correct positioning, Modified ADL techniques, Progress toward Goal/Update tx plan, Purpose of tx/functional activities, Reviewed precautions, Rehab process, Transfer techniques Teaching Recipient: Patient Teaching Methods: Demonstration, Discussion Response to Teaching: Verbalize Understanding, Return Demonstration OT Short Term Goals Short Term Goals 1=Demonstrate adherence to instructed precautions during ADL tasks. 2=Patient will verbalize/demonstrate understanding of assistive devices/modifications for ADL. 3=Patient will improve strength/tolerance for activity to enable patient to perform ADL's. OT [facility] Goals [facility] Goals Time Frame: Nov 05, 2018 Eating (FIM): 6 Eating (QC): 6 Groomin Oral Hygiene (QC): 6 Bathing(FIM): 5 Shower/Bathe Self (QC): 5 Upper Body Dressing(FIM): 6 Upper Body Dressing (QC): 6 Lower Body Dressing(FIM): 6 (With AE) Lower Body Dressing (QC): 6 On/Off Footwear (QC): 6 Toileting(FIM): 6 Toileting Hygiene (QC): 6 Transfers (B,C,W/C) (FIM): 6 Toilet/Commode Transfer(FIM): 6 Toilet/Commode Transfer (QC): 6 Shower Transfer(FIM): 5 Additional Goals: 1-Demonstrate ADL Tasks, 2-Verbalize Understanding, 3- ImproveStrength/Neelima 1=Demonstrate adherence to instructed precautions during ADL tasks. 2=Patient will verbalize/demonstrate understanding of assistive devices/modifications for ADL. 3=Patient will improve strength/tolerance for activity to enable patient to perform ADL's. OT Education/Plan Discharge Recommendations Plan/Recommendations: Follow-up Planned Therapy D/C Recommendations: Home w/ Family Support Treatment Plan/Plan of Care Treatment,Training & Education: Yes Patient would benefit from OT for education, treatment and training to promote independence in ADL's, mobility, safety and/or upper extremity function for ADL's. Plan of Care: ADL Retraining, Functional Mobility, UE Funct Exercise/Act Treatment Duration: Nov 05, 2018 Frequency: 5 times per week Estimated Hrs Per Day: .25 hour per day Agreement: Yes Rehab Potential: Good Time/GCodes Start Time: 14:20 Stop Time: 14:35 Total Time Billed (hr/min): 15 Billed Treatment Time 1, ADL DORIS DENNIS OT Oct 27, 2018 15:26
[2018-10-27 17:33] VITALS: BP 169/60
[2018-10-27] MEDS: FENOFIBRATE 134 MG (LOFIBRA) CAPSULE PO SCH (21:50)
[2018-10-28] MEDS: NYSTATIN ORAL SUSP 5 ML UDC PO SCH ×4 (00:32→17:42)
[2018-10-28] MEDS: MEROPENEM 500 MG in WATER (STERILE) FOR INJECTION 10 ML IV SCH ×4 (00:32→23:58)
[2018-10-28] MEDS: inSUlin ASPART (NovoLOG) 1 UNIT/0.01 ML (CHARGE PER UNIT) SC SCH ×4 (05:23→21:26)
[2018-10-28 05:33] VITALS: BP 137/70
[2018-10-28] MEDS: LEVOTHYROXINE 125 MCG (LEVOTHROID) TABLET PO SCH (06:16)
[2018-10-28] MEDS: MAGNESIUM OXIDE (MAG-OX)400 MG TAB PO SCH (06:17)
--- NOTE | 2018-10-28 08:34 | Progress Note ---
Subjective Date Seen by a Provider: Oct 28, 2018 Time Seen by a Provider: 08:34 Subjective/Events-last exam PT REPORTS THAT SHE IS FEELING BETTER TODAY - SHE REPORTS THAT SHE SLEPT MUCH BETTER LAST NIGHT. SHE REPORTS THAT SHE DOES NOT HAVE ANY ABDOMINAL PAIN, NAUSEA, CHEST PAIN. SHE DOES REPORT THAT HER LEGS REMAIN SWOLLEN, HER HANDS ARE A LITTLE BIT BETTER. SHE REPORTS THAT SHE URINATED QUITE FREQUENTLY YESTERDAY EVENING. Review of Systems General: No Fatigue, No Malaise HEENT: No Head Aches Pulmonary: No Dyspnea, No Cough Cardiovascular: Edema; No: Chest Pain, Palpitations Gastrointestinal: No: Nausea, Abdominal Pain Genitourinary: No Dysuria; Frequency Neurological: No: Weakness, Confusion Objective Exam Last Set of Vital Signs Vital Signs Date Time Temp Pulse Resp B/P (MAP) Pulse Ox O2 Delivery O2 Flow Rate FiO2 10/28/18 05:33 97.9 52 18 137/70 (92) 96 Room Air Capillary Refill : I&O Intake and Output 10/28/18 00:00 Intake Total 1100 ml Balance 1100 ml Intake Oral 1100 ml # Voids 9 # Bowel Movements 2 General: Alert, Oriented X3, Cooperative, No Acute Distress HEENT: Atraumatic, PERRLA Neck: Supple Lungs: Clear to Auscultation Heart: Regular Rate Abdomen: Normal Bowel Sounds, Soft, No Tenderness Extremities: No Clubbing, Other (+ edema bilateral lower legs - improved on hands) Skin: No Rashes, No Breakdown Neuro: Cranial Nerves 3-12 NL Psych/Mental Status: Mental Status NL, Mood NL Results Lab Laboratory Tests 10/27/18 10:56: Glucometer 162H 10/27/18 15:50: Glucometer 87 10/27/18 20:56: Glucometer 165H 10/28/18 05:20: Glucometer 92 Assessment/Plan Assessment/Plan Assess & Plan/Chief Complaint Multidrug resistant UTI Chronic kidney disease tui-weilpvf-ouiaozvwj diabetes Hypertension hypothyroidism edema of hands and legs ESBL Ecoli on culture at this facility - pt on meropenem three times daily. - pt was placed on swing bed for iv antibiotics - planning on the pt to be discharged on Saturday. DM - continue to monitor glucose levels. pt on ssi Hypertension - resumed home medications Hypothyroid - resume home regimen Edema of hands and lower legs - continue with iv lasix. - increase dose to 20mg AM and give an extra 20mg dose this afternoon. continue with physical therapy and occupational therapy. Clinical Quality Measures DVT/VTE Risk/Contraindication: Risk Factor Score Per Nursin HIRAL WOLF MD Oct 28, 2018 08:34
[2018-10-28] MEDS ORDERED: KCL 20 MEQ TAB (K-DUR) PO ONE (08:45)
[2018-10-28] MEDS: LACTOBACILLUS ACIDOPHILUS (PROBIOTIC) CAPSULE PO SCH (08:58)
[2018-10-28] MEDS: meTOprolol TARTRATE 25 MG (LOPRESSOR) TABLET PO SCH ×2 (08:58→21:09)
[2018-10-28] MEDS: MEMANTINE 5 MG (NAMENDA) TABLET PO SCH ×2 (08:58→21:09)
[2018-10-28] MEDS: ASPIRIN 81 MG CHEW (CHILDREN'S ASA) PO SCH (08:58)
[2018-10-28] MEDS: hydrALAZINE (APRESOLINE) 25 MG TAB PO SCH ×2 (08:59→21:10)
[2018-10-28] MEDS: eZETimibe 10 MG (ZETIA) TABLET PO SCH (08:59)
[2018-10-28] MEDS: FUROSEMIDE 40 MG/4 ML INJ (LASIX) IVP SCH (09:04)
--- NOTE | 2018-10-28 10:01 | Physical Therapy Daily Note ---
PT Daily Note-Current Subjective Patient is very cheerful with family present. Agrees to PT. Pain Numeric Pain Scale: 0-No Pain Location: No Pain Reported Mental Status Patient Orientation: Normal For Age Transfers Therapy Code Descriptions/Definitions Functional [place] Measure: 0=Not Assessed/NA 4=Minimal Assistance 1=Total Assistance 5=Supervision or Setup 2=Maximal Assistance 6=Modified [place] 3=Moderate Assistance 7=Complete [place] Therapy Quality Codes: 6 Independent with activity with or without an assistive device 5 Patient requires set up or clean up by helper. Patient completes activity by themselves 4 Supervision or touching assist (CGA). [place] provide cues , steadying assist 3 The helper provides less than half the effort to complete the activity 2 The helper provides more than half the effort to complete the activity 1 Dependent. The helper does all the effort to complete an activity 7 Patient refused to complete or attempt activity 9 The patient did not perform the activity before the current illness or injury 88 Not attempted due to Medical conditions or safety concerns Transfers (B, C, W/C) (FIM): 7 Scootin Rollin Roll Left to Right (QC): 6 Supine to/from Sit: 7 Sit to/from Stand: 7 Sit to Lying (QC): 6 Sit to Stand (QC): 6 Chair/Gfc-ha-Kotwn Xfer(QC): 6 Bed to/from Chair: 6 Weight Bearing Right Lower Extremity: Right Full Weight Bearing Left Lower Extremity: Left Full Weight Bearing Gait Training Does the Patient Walk?: Yes Gait (FIM): 6 Distance (FIM): 3=150 ft Distance: 500' Walk 10 feet (QC): 6 Walk 50 ft with 2 Turns(QC): 6 Walk 150 ft (QC): 6 Gait Level of Assist: 6 Gait Assistive Device: FWW slow, steady reciprocal pattern Exercises Seated Therapy Exercises: Ankle pumps, Long arc quads, Hip flexion Seated Reps: 15 (3 sets) Assessment Patient tolerated treatment well and is up in recliner with needs met. Plan dismissal this week to home with family support. PT Pharmaceutical Sales Goals Pharmaceutical Sales Goals PT Pharmaceutical Sales Goals Time Frame: Oct 29, 2018 Transfers (B,C,W/C) (FIM): 6 Sit to Lying (QC): 6 Lying-Sitting on Side/Bed(QC): 6 Sit to Stand (QC): 6 Rollin Roll Left to Right (QC): 6 Chair/Rqn-lf-Glvka Xfer(QC): 6 Gait (FIM): 6 Distance: 150' Walk 10 feet (QC): 6 Walk 50ft with 2 Turns (QC): 6 Walk 150 ft (QC): 6 Gait Level of Assist: 6 Gait Assistive Device: FWW Stairs (FIM): 5 # of Steps: 12 1 Step (curb) (QC): 4 4 Steps (QC): 4 12 Steps (QC): 4 Stairs Level Of Assist: 5 PT Plan Treatment/Plan Treatment Plan: Continue Plan of Care Treatment Plan: Bed Mobility, Education, Functional Activity Neelima, Functional Strength, Gait, Safety, Therapeutic Exercise, Transfers Treatment Duration: Oct 29, 2018 Frequency: 6 times per week Estimated Hrs Per Day: .25 hour per day Patient and/or Family Agrees t: Yes Time/GCodes Time In: 830 Time Out: 853 Total Billed Treatment Time: 23 Total Billed Treatment 1 visit EX 8 min FA 15 min MARICARMEN EPSTEIN PT Oct 28, 2018 10:00
--- NOTE | 2018-10-28 14:29 | Occ Therapy Progress Note ---
Therapy Progress Note OT spoke with pt. this date. Pt. up in chair with all needs met. OT spoke with pt. regarding further goals. Pt. states that she has been showering self after set up, and is toileting herself independently and is getting up on her own. PT confirmed that pt. is up ad gerri. Pt. reports that she is ambulating and is doing her theraband and therapy sponge exercises independently. Pt. is utilized AE that OT gave last week and is able to dress self with Mod I. OT offers to continue with strengthening tasks with pt., such as taking her to rehab gym. Pt. declines this and states, "I am doing well, and will do these on my own." OT talks with pt. about any concerns she might have, such as doing laundry independently at discharge. Pt. declines practicing this with OT, even with prompting. Pt. states that she is gaining strength, and since she can get up on her own now, she has no further OT needs. OT offered to practice stairs with her as well, so that pt. has no apprehension at discharge. Pt. assures OT that she does not, and that she has no further need to practice IADL skills. All needs met up in room. If pt. has any further questions or concerns, please request OT to come back. This therapist would be happy to do so. 1, visit [phone] No charge Discharge pt. DORIS DENNIS OT Oct 28, 2018 14:29
--- NOTE | 2018-10-28 14:32 | Therapy Team Discharge Summary ---
Therapy Discharge Summary Discharge Recommendations Date of Discharge 10-28-18 from OT services Therapy D/C Recommendations: Home w/ Family Support Occupational Therapy Pt. has been seen by occupational therapy to increase overall independence and work toward safe transfer to home. At this time, pt. is up ad gerri in room, is showering self, and is toileting self. Pt. is ambulating on her own for endurance and is fully independent with HEP and AE that she has been educated with. Pt. reports having no further OT needs at this time. All needs have been met in room. No Skilled OT Needs ID'd PT Contract Processor Goals Long-Term Goals PT Contract Processor Goals Time Frame: Oct 29, 2018 Transfers (B,C,W/C) (FIM): 6 Sit to Lying (QC): 6 Lying-Sitting on Side/Bed(QC): 6 Sit to Stand (QC): 6 Rollin Chair/Gad-og-Rcmnf Xfer(QC): 6 Gait (FIM): 6 Distance: 150' Walk 50ft with 2 Turns (QC): 6 Walk 150 ft (QC): 6 Gait Level of Assist: 6 Gait Assistive Device: FWW Stairs (FIM): 5 # of Steps: 12 Stairs Level Of Assist: 5 OT Long-Term Goals Long-Term Goals Time Frame: Nov 05, 2018 Eating (FIM): 6 (met) Eating (QC): 6 (met) Groomin (met) Oral Hygiene (QC): 6 (met) Bathing(FIM): 5 (met per pt.) Upper Body Dressing(FIM): 6 (met) Lower Body Dressing(FIM): 6 (With AE-met) Toileting(FIM): 6 (met) Toileting Hygiene (QC): 6 (met) Transfers (B,C,W/C) (FIM): 6 (met) Toilet/Commode Transfer(FIM): 6 (met) Toilet/Commode Transfer (QC): 6 (met) Shower Transfer(FIM): 5 (met) Additional Goals: 1-Demonstrate ADL Tasks, 2-Verbalize Understanding, 3- ImproveStrength/Neelima 1=Demonstrate adherence to instructed precautions during ADL tasks. 2=Patient will verbalize/demonstrate understanding of assistive devices/modifications for ADL. 3=Patient will improve strength/tolerance for activity to enable patient to perform ADL's. DORIS DENNIS OT Oct 28, 2018 14:32
[2018-10-28] MEDS ORDERED: FUROSEMIDE 40 MG/4 ML INJ (LASIX) IVP NR (16:00)
[2018-10-28 18:02] VITALS: BP 166/63
[2018-10-28] MEDS: FENOFIBRATE 134 MG (LOFIBRA) CAPSULE PO SCH (21:09)
[2018-10-28] MEDS: MELATONIN 3 MG TABLET PO PRN (21:10)
[2018-10-29] MEDS: NYSTATIN ORAL SUSP 5 ML UDC PO SCH ×4 (00:32→17:47)
[2018-10-29] MEDS: inSUlin ASPART (NovoLOG) 1 UNIT/0.01 ML (CHARGE PER UNIT) SC SCH ×4 (05:31→20:44)
[2018-10-29] MEDS: LEVOTHYROXINE 125 MCG (LEVOTHROID) TABLET PO SCH (05:48)
[2018-10-29] MEDS: MAGNESIUM OXIDE (MAG-OX)400 MG TAB PO SCH (05:48)
[2018-10-29 06:00] VITALS: BP 170/74
[2018-10-29 06:10] LABS: HEMOGLOBIN 10.1 G/DL (11.5-16.0); RED CELL DISTRIBUTION WIDTH 14.8 % (10.0-14.5); WHITE BLOOD COUNT 4.9 10^3/uL (4.3-11.0)
[2018-10-29 06:24] LABS: CALCIUM 8.9 MG/DL (8.5-10.1); CREATININE SERUM 1.31 MG/DL (0.60-1.30)
[2018-10-29] MEDS: LACTOBACILLUS ACIDOPHILUS (PROBIOTIC) CAPSULE PO SCH (08:13)
[2018-10-29] MEDS: FUROSEMIDE 40 MG/4 ML INJ (LASIX) IVP SCH (08:13)
[2018-10-29] MEDS: eZETimibe 10 MG (ZETIA) TABLET PO SCH (08:13)
[2018-10-29] MEDS: MEROPENEM 500 MG in WATER (STERILE) FOR INJECTION 10 ML IV SCH ×2 (08:15→15:10)
[2018-10-29] MEDS: hydrALAZINE (APRESOLINE) 25 MG TAB PO SCH ×2 (08:15→20:44)
[2018-10-29] MEDS: MEMANTINE 5 MG (NAMENDA) TABLET PO SCH ×2 (08:15→20:43)
[2018-10-29] MEDS: meTOprolol TARTRATE 25 MG (LOPRESSOR) TABLET PO SCH ×2 (08:16→20:43)
[2018-10-29] MEDS: ASPIRIN 81 MG CHEW (CHILDREN'S ASA) PO SCH (08:16)
--- NOTE | 2018-10-29 10:26 | Physical Therapy Daily Note ---
PT Daily Note-Current Subjective Pt. up and about ad gerri in her room upon entering, no safety issues noted. Uses FWW safely. States she plans to DC to home on Saturday., Pain Location: No Pain Reported Mental Status Patient Orientation: Normal For Age Transfers Therapy Code Descriptions/Definitions Functional [place] Measure: 0=Not Assessed/NA 4=Minimal Assistance 1=Total Assistance 5=Supervision or Setup 2=Maximal Assistance 6=Modified [place] 3=Moderate Assistance 7=Complete [place] Therapy Quality Codes: 6 Independent with activity with or without an assistive device 5 Patient requires set up or clean up by helper. Patient completes activity by themselves 4 Supervision or touching assist (CGA). Raymond provide cues , steadying assist 3 The helper provides less than half the effort to complete the activity 2 The helper provides more than half the effort to complete the activity 1 Dependent. The helper does all the effort to complete an activity 7 Patient refused to complete or attempt activity 9 The patient did not perform the activity before the current illness or injury 88 Not attempted due to Medical conditions or safety concerns all TRFs mod I Weight Bearing Right Lower Extremity: Right Full Weight Bearing Left Lower Extremity: Left Full Weight Bearing Gait Training Gait Assistive Device: FWW 350ft, 120 ft SBA FWW, turns, retro and side ways no LOB Exercises Seated Therapy Exercises: Ankle pumps, Sit to stand, Long arc quads, Hip flexion Seated Reps: 10 Assessment Current Status: Good Progress up ad gerri, safety noted PT Fdc Goals Visual Merchandising Assistant Goals PT Fdc Goals Time Frame: Oct 29, 2018 Transfers (B,C,W/C) (FIM): 6 Gait (FIM): 6 Distance: 150' Gait Level of Assist: 6 Gait Assistive Device: FWW Stairs (FIM): 5 # of Steps: 12 Stairs Level Of Assist: 5 PT Plan Treatment/Plan Treatment Plan: Continue Plan of Care Treatment Plan: Bed Mobility, Education, Functional Activity Neelima, Functional Strength, Gait, Safety, Therapeutic Exercise, Transfers Treatment Duration: Oct 29, 2018 Frequency: 6 times per week Estimated Hrs Per Day: .25 hour per day Patient and/or Family Agrees t: Yes Safety Risks/Education Patient Education: Gait Training, Transfer Techniques, Correct Positioning, Disease Process, Safety Issues Teaching Recipient: Patient Teaching Methods: Demonstration, Discussion Response to Teaching: Verbalize Understanding, Return Demonstration, Reinforcement Needed Time/GCodes Time In: 840 Time Out: 855 Total Billed Treatment Time: 15 Total Billed Treatment 1,GT15m G Codes Necessary: MISHA Soto [employer] SALES REPRESENTATIVE Oct 29, 2018 10:25
--- NOTE | 2018-10-29 14:41 | NUR ---
referral from pt's granddaughter Katelynn: pt's son had just informed the pt that her grandson by marriage, Gio, of cancer. Engaged in active listening as she shared that her granddaughter him just over a year ago, knowing full well his cancer and prognosis. The pt then shared about the of her father when he was 30 years old and she was 14: He had survived the sinking of his navy ship in WWII, and afterwards by drowning in a local river after falling out of his boat. The pt helped raise her younger brother after that time, and they remain spiritual and emotionally close as she is like a mother to him and they share the same aishwarya. The pt thanked me for visiting stating "you came just when I needed you. You really helped me."
--- NOTE | 2018-10-29 16:21 | Progress Note ---
Subjective Date Seen by a Provider: Oct 29, 2018 Time Seen by a Provider: 16:21 Objective Exam Last Set of Vital Signs Vital Signs Date Time Temp Pulse Resp B/P (MAP) Pulse Ox O2 Delivery O2 Flow Rate FiO2 10/29/18 06:00 98.4 56 20 170/74 (106) 94 Room Air Capillary Refill : I&O Intake and Output 10/29/18 00:00 Intake Total 720 ml Output Total 0 ml Balance 720 ml Intake Oral 720 ml Output Urine Total 0 ml # Voids 10 Results Lab Laboratory Tests 10/28/18 20:31: Glucometer 99 10/29/18 05:19: White Blood Count 4.9, Red Blood Count 3.49L, Hemoglobin 10.1L, Hematocrit 33L, Mean Corpuscular Volume 94, Mean Corpuscular Hemoglobin 29, Mean Corpuscular Hemoglobin Concent 31L, Red Cell Distribution Width 14.8H, Platelet Count 265, Mean Platelet Volume 10.0, Sodium Level 144, Potassium Level 4.0, Chloride Level 105, Carbon Dioxide Level 27, Anion Gap 12, Blood Urea Nitrogen 31H, Creatinine 1.31H, Estimat Glomerular Filtration Rate 39, BUN/Creatinine Ratio 24, Glucose Level 89, Calcium Level 8.9 10/29/18 05:28: Glucometer 87 10/29/18 11:11: Glucometer 113H 10/29/18 15:40: Glucometer 103 Assessment/Plan Assessment/Plan Assess & Plan/Chief Complaint Multidrug resistant UTI Chronic kidney disease ljb-bqgnzdq-wnwxnbzyn diabetes Hypertension hypothyroidism edema of hands and legs ESBL Ecoli on culture at this facility - pt on meropenem three times daily. - pt was placed on swing bed for iv antibiotics - planning on the pt to be discharged on Saturday. DM - continue to monitor glucose levels. pt on ssi Hypertension - resumed home medications Hypothyroid - resume home regimen Edema of hands and lower legs - continue with iv lasix. - increase dose to 20mg AM and give an extra 20mg dose this afternoon. continue with physical therapy and occupational therapy. Clinical Quality Measures DVT/VTE Risk/Contraindication: Risk Factor Score Per Nursin HIRAL WOLF MD Oct 29, 2018 16:21
[2018-10-29 18:00] VITALS: BP 136/61
[2018-10-29] MEDS: FENOFIBRATE 134 MG (LOFIBRA) CAPSULE PO SCH (20:43)
[2018-10-29] MEDS: MELATONIN 3 MG TABLET PO PRN (20:47)
[2018-10-30] MEDS: NYSTATIN ORAL SUSP 5 ML UDC PO SCH ×5 (00:38→23:23)
[2018-10-30] MEDS: MEROPENEM 500 MG in WATER (STERILE) FOR INJECTION 10 ML IV SCH ×4 (00:38→23:24)
[2018-10-30 05:45] VITALS: BP 145/69
[2018-10-30] MEDS: inSUlin ASPART (NovoLOG) 1 UNIT/0.01 ML (CHARGE PER UNIT) SC SCH ×4 (05:49→21:16)
[2018-10-30] MEDS: MAGNESIUM OXIDE (MAG-OX)400 MG TAB PO SCH (06:22)
[2018-10-30] MEDS: LEVOTHYROXINE 125 MCG (LEVOTHROID) TABLET PO SCH (06:22)
[2018-10-30] MEDS: eZETimibe 10 MG (ZETIA) TABLET PO SCH (07:58)
[2018-10-30] MEDS: FUROSEMIDE 40 MG/4 ML INJ (LASIX) IVP SCH (07:58)
[2018-10-30] MEDS: ASPIRIN 81 MG CHEW (CHILDREN'S ASA) PO SCH (07:59)
[2018-10-30] MEDS: MEMANTINE 5 MG (NAMENDA) TABLET PO SCH ×2 (08:01→21:15)
[2018-10-30] MEDS: LACTOBACILLUS ACIDOPHILUS (PROBIOTIC) CAPSULE PO SCH (08:02)
[2018-10-30] MEDS: meTOprolol TARTRATE 25 MG (LOPRESSOR) TABLET PO SCH ×2 (08:03→21:16)
[2018-10-30] MEDS: hydrALAZINE (APRESOLINE) 25 MG TAB PO SCH ×2 (08:03→21:15)
--- NOTE | 2018-10-30 09:26 | Progress Note ---
Subjective Date Seen by a Provider: Oct 30, 2018 Time Seen by a Provider: 09:10 Objective Exam Last Set of Vital Signs Vital Signs Date Time Temp Pulse Resp B/P (MAP) Pulse Ox O2 Delivery O2 Flow Rate FiO2 10/30/18 05:45 98.3 55 24 145/69 (94) 93 Room Air Capillary Refill : I&O Intake and Output 10/30/18 00:00 Intake Total 1924 ml Balance 1924 ml Intake Oral 1924 ml # Voids 11 # Bowel Movements 2 Results Lab Laboratory Tests 10/29/18 11:11: Glucometer 113H 10/29/18 15:40: Glucometer 103 10/29/18 20:42: Glucometer 130H 10/30/18 05:34: Glucometer 99 Assessment/Plan Assessment/Plan Assess & Plan/Chief Complaint Multidrug resistant UTI Chronic kidney disease bug-ctldfth-jyrurokga diabetes Hypertension hypothyroidism edema of hands and legs Dyspnea ESBL Ecoli on culture at this facility - pt on meropenem three times daily. - pt was placed on swing bed for iv antibiotics - planning on the pt to be discharged on Saturday. DM - continue to monitor glucose levels. pt on ssi Hypertension - resumed home medications Hypothyroid - resume home regimen Edema of hands and lower legs - improved with lasix - continue current dosing regimen. Dyspnea on exertion - check ambulatory oxygen today. continue with physical therapy and occupational therapy. Clinical Quality Measures DVT/VTE Risk/Contraindication: Risk Factor Score Per Nursin HIRAL WOLF MD Oct 30, 2018 09:26
--- NOTE | 2018-10-30 10:57 | Physical Therapy Daily Note ---
PT Daily Note-Current Subjective Patient is in bed and agrees to PT. No c/o. Pain Numeric Pain Scale: 0-No Pain Location: No Pain Reported Mental Status Patient Orientation: Normal For Age Transfers Therapy Code Descriptions/Definitions Functional [place] Measure: 0=Not Assessed/NA 4=Minimal Assistance 1=Total Assistance 5=Supervision or Setup 2=Maximal Assistance 6=Modified [place] 3=Moderate Assistance 7=Complete [place] Therapy Quality Codes: 6 Independent with activity with or without an assistive device 5 Patient requires set up or clean up by helper. Patient completes activity by themselves 4 Supervision or touching assist (CGA). [place] provide cues , steadying assist 3 The helper provides less than half the effort to complete the activity 2 The helper provides more than half the effort to complete the activity 1 Dependent. The helper does all the effort to complete an activity 7 Patient refused to complete or attempt activity 9 The patient did not perform the activity before the current illness or injury 88 Not attempted due to Medical conditions or safety concerns Transfers (B, C, W/C) (FIM): 7 Scootin Rollin Roll Left to Right (QC): 6 Supine to/from Sit: 7 Sit to/from Stand: 7 Sit to Lying (QC): 6 Sit to Stand (QC): 6 Weight Bearing Right Lower Extremity: Right Full Weight Bearing Left Lower Extremity: Left Full Weight Bearing Gait Training Does the Patient Walk?: Yes Gait (FIM): 6 Distance (FIM): 3=150 ft Distance: 350' x 2 Walk 10 feet (QC): 6 Walk 50 ft with 2 Turns(QC): 6 Walk 150 ft (QC): 6 Gait Level of Assist: 6 Gait Assistive Device: FWW steady, functional gait sequence Stair Training Stair Training: Handrails/: 2 handrails Stairs (FIM): 6 #of Steps: 16 1 Step (curb) (QC): 6 4 Steps (QC): 6 12 Steps (QC): 6 Stairs: Pattern: Step to Level of Assist: 6 Assessment Patient is currently modified independent PLOF with all gross motor skills and will dismiss to home with family this week. PT Custodial Goals Installation Superintendent Goals PT Custodial Goals Time Frame: Oct 31, 2018 Transfers (B,C,W/C) (FIM): 6 (met 10/30/18) Sit to Lying (QC): 6 (met 10/30/18) Lying-Sitting on Side/Bed(QC): 6 (met 10/30/18) Sit to Stand (QC): 6 (met 10/30/18) Rollin (met 10/30/18) Roll Left to Right (QC): 6 (met 10/30/18) Chair/Fkw-yy-Fmmql Xfer(QC): 6 (met 10/30/18) Gait (FIM): 6 (met 10/30/18) Distance: 150' Walk 10 feet (QC): 6 (met 10/30/18) Walk 50ft with 2 Turns (QC): 6 (met 10/30/18) Walk 150 ft (QC): 6 (met 10/30/18) Gait Level of Assist: 6 (met 10/30/18) Gait Assistive Device: FWW Stairs (FIM): 5 (met 10/30/18) # of Steps: 12 (met 10/30/18) 1 Step (curb) (QC): 4 (met 10/30/18) 4 Steps (QC): 4 (met 10/30/18) 12 Steps (QC): 4 (met 10/30/18) Stairs Level Of Assist: 5 (met 10/30/18) PT Plan Treatment/Plan Treatment Plan: Continue Plan of Care Treatment Plan: Bed Mobility, Education, Functional Activity Neelima, Functional Strength, Gait, Safety, Therapeutic Exercise, Transfers Treatment Duration: Oct 31, 2018 Frequency: 6 times per week Estimated Hrs Per Day: .25 hour per day Patient and/or Family Agrees t: Yes Time/GCodes Time In: 944 Time Out: 1000 Total Billed Treatment Time: 16 Total Billed Treatment 1 visit FA 16 min MARICARMEN EPSTEIN PT Oct 30, 2018 10:57
--- NOTE | 2018-10-30 11:15 | NUR ---
Notice of Medicare Non-Coverage presented, reviewed, signed and placed in patient chart. Patient voiced no intention to appeal and deny any needs or further questions at this time.
--- NOTE | 2018-10-30 12:33 | NUR ---
Follow up visit: pt said she expects to discharge from the hospital tomorrow, and is feeling encouraged about her improvement. She said she knows the bacteria is her bladder is not anticipated to clear. Her brother and sisters have history of bladder related illness. She shared she has been reminiscing more with her brother about their childhood, and is preparing to meet many of her loved ones in [facility].
[2018-10-30 18:14] VITALS: BP 170/68
[2018-10-30] MEDS: MELATONIN 3 MG TABLET PO PRN (21:15)
[2018-10-30] MEDS: FENOFIBRATE 134 MG (LOFIBRA) CAPSULE PO SCH (21:15)
[2018-10-31 05:57] VITALS: BP 170/71
[2018-10-31] MEDS: LEVOTHYROXINE 125 MCG (LEVOTHROID) TABLET PO SCH (06:08)
[2018-10-31] MEDS: MAGNESIUM OXIDE (MAG-OX)400 MG TAB PO SCH (06:08)
[2018-10-31] MEDS: inSUlin ASPART (NovoLOG) 1 UNIT/0.01 ML (CHARGE PER UNIT) SC SCH ×2 (06:08→11:30)
[2018-10-31] MEDS: NYSTATIN ORAL SUSP 5 ML UDC PO SCH ×2 (06:08→13:35)
[2018-10-31] MEDS: MEROPENEM 500 MG in WATER (STERILE) FOR INJECTION 10 ML IV SCH (08:15)
[2018-10-31] MEDS: MEMANTINE 5 MG (NAMENDA) TABLET PO SCH (08:16)
[2018-10-31] MEDS: ASPIRIN 81 MG CHEW (CHILDREN'S ASA) PO SCH (08:16)
[2018-10-31] MEDS: LACTOBACILLUS ACIDOPHILUS (PROBIOTIC) CAPSULE PO SCH (08:16)
[2018-10-31] MEDS: FUROSEMIDE 40 MG/4 ML INJ (LASIX) IVP SCH (08:16)
[2018-10-31] MEDS: meTOprolol TARTRATE 25 MG (LOPRESSOR) TABLET PO SCH (08:16)
[2018-10-31] MEDS: eZETimibe 10 MG (ZETIA) TABLET PO SCH (08:16)
[2018-10-31] MEDS: hydrALAZINE (APRESOLINE) 25 MG TAB PO SCH (08:17)
--- NOTE | 2018-10-31 08:49 | Therapy Team Discharge Summary ---
Therapy Discharge Summary Discharge Recommendations Date of Discharge Therapy D/C Recommendations: Home w/ Family Support Physical Therapy Patient seen by skilled PT to address functional strength and mobility to improve LOF to return safely to home with family. Patient progressed with treatment plan and attained all functional goals and is modified independent to independent with gross motor skills. Patient performed stairs without difficulty and is safe to return to home with family. Occupational Therapy No Skilled OT Needs ID'd PT [facility] Goals Jacquard Loom Fixer Goals PT [facility] Goals Time Frame: Oct 31, 2018 Transfers (B,C,W/C) (FIM): 6 (met 10/30/18) Sit to Lying (QC): 6 (met 10/30/18) Lying-Sitting on Side/Bed(QC): 6 (met 10/30/18) Sit to Stand (QC): 6 (met 10/30/18) Rollin (met 10/30/18) Chair/Gza-vj-Pnkpi Xfer(QC): 6 (met 10/30/18) Gait (FIM): 6 (met 10/30/18) Distance: 150' Walk 50ft with 2 Turns (QC): 6 (met 10/30/18) Walk 150 ft (QC): 6 (met 10/30/18) Gait Level of Assist: 6 (met 10/30/18) Gait Assistive Device: FWW Stairs (FIM): 5 (met 10/30/18) # of Steps: 12 (met 10/30/18) Stairs Level Of Assist: 5 (met 10/30/18) OT [facility]ci Goals Fci Goals Time Frame: Nov 05, 2018 Eating (FIM): 6 (met) Eating (QC): 6 (met) Groomin (met) Oral Hygiene (QC): 6 (met) Bathing(FIM): 5 (met per pt.) Upper Body Dressing(FIM): 6 (met) Lower Body Dressing(FIM): 6 (With AE-met) Toileting(FIM): 6 (met) Toileting Hygiene (QC): 6 (met) Transfers (B,C,W/C) (FIM): 6 (met) Toilet/Commode Transfer(FIM): 6 (met) Toilet/Commode Transfer (QC): 6 (met) Shower Transfer(FIM): 5 (met) Additional Goals: 1-Demonstrate ADL Tasks, 2-Verbalize Understanding, 3- ImproveStrength/Neelima 1=Demonstrate adherence to instructed precautions during ADL tasks. 2=Patient will verbalize/demonstrate understanding of assistive devices/modifications for ADL. 3=Patient will improve strength/tolerance for activity to enable patient to perform ADL's. MARICARMEN EPSTEIN PT Oct 31, 2018 08:49
--- NOTE | 2018-10-31 09:17 | Discharge Summary ---
Diagnosis/Chief Complaint Date of Admission Oct 22, 2018 at 09:37 Date of Discharge Discharge Summary Discharge Physical Examination Allergies: Coded Allergies: sertraline (Verified Allergy, Severe, CANNOT BREATHE, 03/14/17) Cephalosporins (Unverified Allergy, Mild, 03/14/17) Iodinated Contrast- Oral and IV Dye (Unverified Allergy, Mild, 03/14/17) Penicillins (Unverified Allergy, Mild, 03/14/17) Shellfish (Unverified Allergy, Mild, 03/14/17) atorvastatin (Unverified Allergy, Mild, 03/14/17) clarithromycin (Unverified Allergy, Mild, 03/14/17) codeine (Unverified Allergy, Mild, PT HAS RECEIVED HYDROMORPHONE IN THE PAST, 03/14/17) diltiazem (Unverified Allergy, Mild, 03/14/17) glucagon (Unverified Allergy, Mild, 03/14/17) lisinopril (Unverified Allergy, Mild, 03/14/17) morphine (Unverified Allergy, Mild, PT HAS RECEIVED HYDROMORPHONE IN THE PAST, 03/14/17) nifedipine (Unverified Allergy, Mild, 03/14/17) paroxetine (Unverified Allergy, Mild, 03/14/17) sulfamethoxazole (Unverified Allergy, Mild, 03/14/17) acetaminophen (Verified Allergy, Unknown, 03/14/17) benzocaine (Verified Allergy, Unknown, methemoglobinemia, 05/14/18) latex (Verified Allergy, Unknown, 03/14/17) meperidine (Verified Allergy, Unknown, PATIENT HAS RECEIVED FENTANYL IN THE PAST, 03/14/17) propoxyphene (Verified Allergy, Unknown, 03/14/17) sulindac (Verified Allergy, Unknown, 03/14/17) tramadol (Verified Allergy, Unknown, 04/12/17) Uncoded Allergies: TAPE (Allergy, Unknown, CAN USE PAPER TAPE, 12/08/08) Vitals & I&Os Vital Signs Date Time Temp Pulse Resp B/P (MAP) Pulse Ox O2 Delivery O2 Flow Rate FiO2 10/31/18 08:45 Room Air 10/31/18 05:57 98.3 57 20 170/71 (104) 95 Hospital Course Pending Labs Laboratory Tests 10/31/18 05:42: Glucometer 90 Discharge Instructions to patient/family Please see electronic discharge instructions given to patient. Discharge Medications Reviewed and agree with Discharge Medication list on patient's Discharge Instruction sheet Clinical Quality Measures DVT/VTE Risk/Contraindication: Risk Factor Score Per Nursin HIRAL WOLF MD Oct 31, 2018 09:17
--- NOTE | 2018-10-31 09:24 | Discharge Inst-Complex ---
[facility] Rec & Follow Up Appt. Continued Medications: Aspirin (Aspirin) 81 Mg Tab.chew 81 MG PO DAILY, TAB Cholecalciferol (Vitamin D3) (Vitamin D3) 1,000 Unit Capsule 1000 UNIT PO DAILY, CAP Citalopram Hydrobromide (Celexa) 40 Mg Tablet 20 MG PO BID, TAB TAKE 1/2 OF 40MG TAB Diazepam (Diazepam) 5 Mg Tablet 5 MG PO Q8H for 30 Days, #120 TAB Ergocalciferol (Vitamin D2) (Vitamin D2) 50,000 Unit Capsule 18284 UNIT PO weekly Ezetimibe (Zetia) 10 Mg Tablet 10 MG PO DAILY, TAB Fenofibrate Nanocrystallized (Tricor) 145 Mg Tablet 145 MG PO DAILY, TAB Glipizide (Glipizide) 5 Mg Tablet 2.5 MG PO BID, TAB TAKES 1/2 OF A 5MG TAB TWICE DAILY Hydralazine HCl (Hydralazine HCl) 100 Mg Tablet 100 MG PO BID for 30 Days, #60 TAB Ketoconazole (Ketoconazole) 15 Gm Cream..g. 1 GM TP BID for 30 Days, #1 TUBE Levothyroxine Sodium (Levothyroxine Sodium) 125 Mcg Tablet 125 MCG PO SuMoWeFrSa, TAB Levothyroxine Sodium (Levothyroxine Sodium) 125 Mcg Tablet 62.5 MCG PO TuTh, TAB Magnesium Oxide (Magnesium) 250 Mg Tablet 250 MG PO DAILY, TAB Memantine HCl (Memantine HCl) 5 Mg Tablet 5 MG PO BID, TAB Metoprolol Tartrate (Metoprolol Tartrate) 25 Mg Tablet 37.5 MG PO BID, TAB take 1 1/2 of 25mg tab Nitrofurantoin Macrocrystal (Nitrofurantoin) 25 Mg Capsule 25 MG PO DAILY, CAP Omeprazole (Omeprazole) 40 Mg Capsule.dr 40 MG PO DAILY, CAP Ondansetron (Ondansetron Odt) 4 Mg Tab.rapdis 4 MG PO Q4H for Nausea/Vomiting, #10 TAB Triamterene/Hydrochlorothiazid (Dyazide 37.5-25 Capsule) 1 Each Capsule 1 EACH PO DAILY, CAP Discontinued Medications: Ciprofloxacin HCl (Ciprofloxacin HCl) 250 Mg Tablet 250 MG PO BID picked up a 7 day supply on 10-14-2018 Oxycodone HCl/Acetaminophen (Oxycodone-Acetaminophen 5-325) 1 Each Tablet 1 EACH PO Q4H PRN for PAIN-MODERATE MDD 6, #40 TAB Prescription: Transmitted to Pharmacy Activity, Diet and PDI Resume Normal Activity: Yes Discharge Diet: Regular Diet Diet for 24 Hours: No Alcohol, No [facility] [employer] Drink 6-8 Glasses of Fluid/Day: Yes Driving Instructions: You May Drive Return to The Hospital For: chest pain, shortness of breath, abdominal pain, urinary tract infection symptoms, or any concern for lifethreatening illness or injury Symptoms to Reoprt to : Appetite Changes, Fever Over 101 Degrees F, Pain/Pressure in Chest, Lightheadedness, Diarrhea(Persistant), Nausea/Vomiting For Problems or Questions: Contact Your Physician Infection Signs and Symptoms: Temperature Above 101 F HIRAL WOLF MD Oct 31, 2018 09:24
--- NOTE | 2018-10-31 10:51 | NUR ---
Patient has not been on O2 today and her O2 sat was 93% at rest; patient stood up and was 94% and walked and never did drop below 90% Addendum: 10/31/18 at 1053 by JOSE JIMENEZ RT Patient did get SOA and have to sit down for approximately 2 mins but did not drop in O2
[2018-10-31 14:02] VITALS: BP 170/71
== END 2018-10-31 14:02 | disposition home or self-care (01) | DRG 690 ==
LOC: 4TH 09:37
PROVIDERS: ADMIT Family Medicine; ATTEND Family Medicine
DX: N30.00 Acute cystitis without hematuria (principal); R53.83 Other fatigue; R26.2 Difficulty in walking, not elsewhere classified; I12.9 Hypertensive chronic kidney disease with stage 1 through stage 4 chronic kidney disease, or unspecified chronic kidney disease; N18.9 Chronic kidney disease, unspecified; E03.9 Hypothyroidism, unspecified; K21.9 Gastro-esophageal reflux disease without esophagitis; E11.9 Type 2 diabetes mellitus without complications; M54.9 Dorsalgia, unspecified; M19.91 Primary osteoarthritis, unspecified site; K57.90 Diverticulosis of intestine, part unspecified, without perforation or abscess without bleeding; K44.9 Diaphragmatic hernia without obstruction or gangrene; G43.909 Migraine, unspecified, not intractable, without status migrainosus; F41.9 Anxiety disorder, unspecified; F32.9 Major depressive disorder, single episode, unspecified; F43.10 Post-traumatic stress disorder, unspecified; Z87.11 Personal history of peptic ulcer disease; B96.20 Unspecified Escherichia coli [E. coli] as the cause of diseases classified elsewhere; Z16.12 Extended spectrum beta lactamase (ESBL) resistance; R60.0 Localized edema
CPT/HCPCS: 36415; 80048; 80053; 82962; 85027; 94761

== ENCOUNTER → 2018-12-05 | Outpatient (CLI) | payer MEDICARE, OTHER ==
--- NOTE | 2018-12-05 16:17 | Diagnostic Imaging Report ---
PROCEDURE: CT abdomen and pelvis without contrast. TECHNIQUE: Multiple contiguous axial images were obtained through the abdomen and pelvis without the use of intravenous contrast. Auto Exposure Controls were utilized during the CT exam to meet ALARA standards for radiation dose reduction. INDICATION: Urinary tract infections. COMPARISON: 09/12/2018 FINDINGS: The visualized lung bases are clear. Mitral valve annular calcifications. Extensive calcifications within the coronary arteries. The unenhanced liver and spleen are unremarkable. Postsurgical changes of prior anterior abdominal wall hernia repair are noted. The adrenal glands are unremarkable. The pancreas is unremarkable. Punctate nonobstructing calculus within the inferior pole of the right kidney. Otherwise, the right kidney and right ureter are unremarkable. Left renal cysts are again identified, including hyperdense cyst arising from the inferior pole of the left kidney. The left kidney and left ureter are otherwise unremarkable. Extensive vascular calcifications within the abdominal aorta and its branch vessels without aneurysmal dilatation of abdominal aorta. Dense calcification is noted within the retroumbilical region, stable from prior examination. This may relate to prior hernia repair. The urinary bladder is not well-seen secondary to spray artifact from bilateral total hip arthroplasties. Mild colonic diverticulosis without CT evidence of diverticulitis. No bowel obstruction or pneumatosis. No significant adenopathy, free air, or free fluid within the abdomen or pelvis. Bilateral total hip arthroplasties. Scattered osseous degenerative changes. No acute osseous abnormality. IMPRESSION: 1. Punctate nonobstructing right renal calculus. 2. Urinary bladder is not well-seen secondary to spray artifact from bilateral total hip arthroplasties. 3. Left renal cysts, including hyperdense left renal cyst. 4. Additional postsurgical and chronic findings as above. Dictated by: Dictated on workstation # [id number]
== END ==
LOC: RAD 15:21
PROVIDERS: ATTEND Urology
DX: N20.0 Calculus of kidney (principal); N28.1 Cyst of kidney, acquired; I05.9 Rheumatic mitral valve disease, unspecified; I25.10 Atherosclerotic heart disease of native coronary artery without angina pectoris; K57.30 Diverticulosis of large intestine without perforation or abscess without bleeding; M89.8X9 Other specified disorders of bone, unspecified site; Z98.890 Other specified postprocedural states; Z96.643 Presence of artificial hip joint, bilateral
CPT/HCPCS: 74176

== ENCOUNTER 2019-02-22 13:27 | Emergency (ER) | payer MEDICARE, OTHER ==
[~2019-02-22] VITALS: Ht 158 cm; Wt 85.3 kg
--- NOTE | 2019-02-22 15:02 | Diagnostic Imaging Report ---
PROCEDURE: CT head and CT cervical spine without contrast. TECHNIQUE: Multiple contiguous axial images were obtained through the brain and cervical spine without the use of intravenous contrast. Sagittal and coronal reformations through the cervical spine were then performed. Auto Exposure Controls were utilized during the CT exam to meet ALARA standards for radiation dose reduction. INDICATION: Fall. Neck pain. Right shoulder pain. Comparison is made with prior CT head 10/17/2018. FINDINGS: Noncontrast CT of the head demonstrates age-related global volume loss. There are background microvascular changes in the white matter. There are no CT findings of acute hemorrhage or of an extra-axial collection. There is no mass effect or shift. There is no hydrocephalus. There is no territorial loss of white-white differentiation. Posterior fossa demonstrates no acute process. There are atherosclerotic calcifications within the vessels of the skull base. The mastoids are clear. There is no fluid level in the paranasal sinuses. Orbital contents unremarkable. There is no calvarial abnormality. Cervical spine demonstrates multilevel cervical degenerative disc disease and facet arthropathy. There is a minimal degenerative anterolisthesis of C7 on T1. Craniocervical junction relationships are maintained. There are normal relationships of the lateral masses of C1 and C2. Facets are normally aligned. There is fusion of the C2-C3 facets. There is no facet joint or disc space widening. The vertebral body heights are maintained. There is no acute cervical spine fracture. Most advanced endplate changes are at C5-C6 and C6-C7. There are disc osteophyte complexes at each level where there appears to be hfdz-te-ujeeocgy narrowing of the central canal. There is multilevel uncovertebral spurring and facet arthropathy resulting in multiple levels of moderate to advanced foraminal stenosis including on the right at C4-C5 and bilaterally at C5-C6 and C6-C7. The lung apices are clear. There are operative changes of previous thyroidectomy. There are advanced left-sided carotid calcifications. IMPRESSION: 1. Age-related global volume loss and background microvascular changes without CT evidence of an acute intracranial abnormality. 2. Multilevel cervical degenerative disc disease and facet arthropathy without CT findings of traumatic malalignment or acute cervical spine fracture. 3. No high-grade central canal stenosis. Multiple levels of moderate to advanced foraminal stenosis as detailed above. Dictated by: Dictated on workstation # [id number]
--- NOTE | 2019-02-22 15:07 | Diagnostic Imaging Report ---
INDICATIONS: Left tibia-fibula injury. COMPARISON: None. FINDINGS: Four views of the left tibia-fibula demonstrate intact knee arthroplasty. There is no obvious fracture or dislocation. The ankle mortise is intact. Atherosclerotic disease is present. There is no foreign body. IMPRESSION: No obvious fracture or dislocation. Dictated by: Dictated on workstation # [id number]
--- NOTE | 2019-02-22 15:09 | Diagnostic Imaging Report ---
INDICATION: Right knee injury. COMPARISON: None. FINDINGS: Three views of the right knee demonstrate intact right knee arthroplasty. There is no fracture or dislocation. No loosening or joint effusion. Atherosclerosis is present. IMPRESSION: Stable right knee arthroplasty. No fracture. Dictated by: Dictated on workstation # [id number]
--- NOTE | 2019-02-22 15:11 | Diagnostic Imaging Report ---
INDICATION: Left wrist injury, pain. COMPARISON: None. FINDINGS: Three views of the left wrist demonstrate age-appropriate degenerative joint disease. There is no bony erosion, fracture or dislocation. No foreign body seen. Atherosclerosis is noted. IMPRESSION: No acute fracture or dislocation. Dictated by: Dictated on workstation # [id number]
--- NOTE | 2019-02-22 15:12 | Diagnostic Imaging Report ---
INDICATION: Fall. FINDINGS: There are background arthritic changes present within the hand and wrist most advanced at the triscaphe joint and throughout the thumb. There are more mild arthritic changes within the interphalangeal joints. There are vascular calcifications. There are no findings of malalignment, joint dislocation or acute fracture. IMPRESSION: 1. 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 Dictated by: Dictated on workstation # [id number]
--- NOTE | 2019-02-22 15:17 | Diagnostic Imaging Report ---
PROCEDURE: CT chest, abdomen, and pelvis without contrast. TECHNIQUE: Multiple contiguous axial images were obtained through the chest, abdomen, and pelvis without the use of intravenous contrast. Auto Exposure Controls were utilized during the CT exam to meet ALARA standards for radiation dose reduction. INDICATION: Fall, chest, abdominal and pelvic pain, trauma. COMPARISON: None. CT CHEST: The heart is enlarged with central vascular congestion. Extensive coronary artery disease. There is no pneumothorax, effusion or hemothorax. No pericardial effusion is identified. Osseous structures appear intact. Thoracic spine and sternum are well aligned. There is no obvious rib fracture. IMPRESSION: 1. No acute trauma within the chest. 2. Cardiac enlargement with central vascular congestion and coronary artery disease. CT ABDOMEN AND PELVIS: The gallbladder is surgically absent. The solid organs appear grossly unremarkable. There is no hemoperitoneum or free air. Diverticulosis seen involving descending and sigmoid colon without diverticulitis. There is no bowel obstruction. Distal ureters and urinary bladder are normal. Advanced atherosclerotic disease is seen throughout the majority of the abdominal aorta and visceral branch vessels. Bilateral hip prostheses are present. There is no periprosthetic fracture visualized on this series. The lumbar spine is well aligned. SI joints are symmetric. IMPRESSION: 1. Advanced atherosclerotic disease without aneurysm. 2. No solid organ or bowel injury identified. 3. Diverticulosis of the sigmoid colon and descending colon without diverticulitis. 4. No fracture. Dictated by: Dictated on workstation # [id number]
[2019-02-22 16:25] LABS: BILIRUBIN,URINE NEGATIVE (NEGATIVE); CLARITY,URINE SL CLOUDY; COLOR,URINE YELLOW; GLUCOSE, URINE (UA) NEGATIVE (NEGATIVE); KETONES,URINE NEGATIVE (NEGATIVE); LEUKOCYTE ESTERASE ,URINE NEGATIVE (NEGATIVE); NITRITE,URINE POSITIVE (NEGATIVE); PROTEIN,URINE NEGATIVE (NEGATIVE)
[2019-02-22 16:35] LABS: BACTERIA,URINE LARGE /HPF
[2019-02-22] MEDS ORDERED: CIPR250T3 PO (17:05)
--- NOTE | 2019-02-22 17:05 | ED Fall/Injury ---
General Chief Complaint: Trauma-Non Activation Stated Complaint: FALL/L WRIST SWELLING/PAIN ALL OVER Nursing Triage Note: LEFT WRIST, LEFT ANKLE, RIGHT SHOULDER, RIGHT THUMB, RIGHT SIDE RIB PAIN Source: patient Exam Limitations: no limitations History of Present Illness Date Seen by Provider: Feb 22, 2019 Time Seen by Provider: 14:10 Initial Comments This 83-year-old woman presents to the emergency room accompanied by her daughter with complaints of pain and injury and multiple areas after tripping on a step. She has a step up to the bathroom in her living quarters at her daughter's house. She got hung up on the step and fell over. In doing so she grabbed onto a metal shelving unit that then fell on top of her. She complains of pain in multiple areas including along the right anterior costal margin, right upper quadrant of the abdomen, right shoulder, right hand, left wrist, posterior neck, and head. She has swelling and ecchymosis to the left wrist. There are no other obvious external injuries. She also complains of pelvic discomfort and dysuria which she believes might be related to UTI. Allergies and Home Medications Allergies Coded Allergies: sertraline (Verified Allergy, Severe, CANNOT BREATHE, 03/14/17) Cephalosporins (Unverified Allergy, Mild, 03/14/17) Iodinated Contrast- Oral and IV Dye (Unverified Allergy, Mild, 03/14/17) Penicillins (Unverified Allergy, Mild, 03/14/17) Shellfish (Unverified Allergy, Mild, 03/14/17) atorvastatin (Unverified Allergy, Mild, 03/14/17) clarithromycin (Unverified Allergy, Mild, 03/14/17) codeine (Unverified Allergy, Mild, PT HAS RECEIVED HYDROMORPHONE IN THE PAST, 03/14/17) diltiazem (Unverified Allergy, Mild, 03/14/17) glucagon (Unverified Allergy, Mild, 03/14/17) lisinopril (Unverified Allergy, Mild, 03/14/17) morphine (Unverified Allergy, Mild, PT HAS RECEIVED HYDROMORPHONE IN THE PAST, 03/14/17) nifedipine (Unverified Allergy, Mild, 03/14/17) paroxetine (Unverified Allergy, Mild, 03/14/17) sulfamethoxazole (Unverified Allergy, Mild, 03/14/17) acetaminophen (Verified Allergy, Unknown, 03/14/17) benzocaine (Verified Allergy, Unknown, methemoglobinemia, 05/14/18) latex (Verified Allergy, Unknown, 03/14/17) meperidine (Verified Allergy, Unknown, PATIENT HAS RECEIVED FENTANYL IN THE PAST, 03/14/17) propoxyphene (Verified Allergy, Unknown, 03/14/17) sulindac (Verified Allergy, Unknown, 03/14/17) tramadol (Verified Allergy, Unknown, 04/12/17) Uncoded Allergies: TAPE (Allergy, Unknown, CAN USE PAPER TAPE, 12/08/08) Home Medications Aspirin 81 Mg Tab.chew, 81 MG PO DAILY, (Reported) Cholecalciferol (Vitamin D3) 1,000 Unit Capsule, 1,000 UNIT PO DAILY, (Reported) Ciprofloxacin HCl 250 Mg Tablet, 250 MG PO BID Prescribed by: MARCO ANTONIO RICH on 02/22/19 170 Citalopram Hydrobromide 40 Mg Tablet, 20 MG PO BID, (Reported) TAKE 1/2 OF 40MG TAB Diazepam 5 Mg Tablet, 5 MG PO Q8H Prescribed by: SHIMON THOMPSON on 10/17/181809 Ergocalciferol (Vitamin D2) 50,000 Unit Capsule, 50,000 UNIT PO weekly, (Reported) Ezetimibe 10 Mg Tablet, 10 MG PO DAILY, (Reported) Fenofibrate Nanocrystallized 145 Mg Tablet, 145 MG PO DAILY, (Reported) Glipizide 5 Mg Tablet, 2.5 MG PO BID, (Reported) TAKES 1/2 OF A 5MG TAB TWICE DAILY Hydralazine HCl 100 Mg Tablet, 100 MG PO BID Prescribed by: SHIMON THOMPSON on 10/17/181809 Ketoconazole 15 Gm Cream..g., 1 GM TP BID Prescribed by: SHIMON THOMPSON on 10/17/181809 Levothyroxine Sodium 125 Mcg Tablet, 125 MCG PO SuMoWeFrSa, (Reported) Levothyroxine Sodium 125 Mcg Tablet, 62.5 MCG PO TuTh, (Reported) Magnesium Oxide 250 Mg Tablet, 250 MG PO DAILY, (Reported) Memantine HCl 5 Mg Tablet, 5 MG PO BID, (Reported) Metoprolol Tartrate 25 Mg Tablet, 37.5 MG PO BID, (Reported) take 1 1/2 of 25mg tab Nitrofurantoin Macrocrystal 25 Mg Capsule, 25 MG PO DAILY, (Reported) Omeprazole 40 Mg Capsule.dr, 40 MG PO DAILY, (Reported) Ondansetron 4 Mg Tab.rapdis, 4 MG PO Q4H Prescribed by: ROSA FLORES on 09/12/181948 Triamterene/Hydrochlorothiazid 1 Each Capsule, 1 EACH PO DAILY, (Reported) Patient Home Medication List Home Medication List Reviewed: Yes Review of Systems Review of Systems Constitutional: no symptoms reported Eyes: No Symptoms Reported Ears, Nose, Mouth, Throat: no symptoms reported Respiratory: no symptoms reported Cardiovascular: no symptoms reported Gastrointestinal: no symptoms reported Genitourinary: see HPI : No Musculoskeletal: see HPI Skin: see HPI Psychiatric/Neurological: See HPI Past Sthwqki-Vjgxdp-Imnfxc Hx Past Med/Social Hx: Reviewed Nursing Past Med/Soc Hx Patient Social History Alcohol Use: Denies Use Recreational Drug Use: No Smoking Status: Former Smoker Type Used: Cigarettes Former Smoker, Quit: Jan 30, 1966 2nd Hand Smoke Exposure: No Recent Foreign Travel: No Contact w/Someone Who Travel: No Recent Infectious Disease Expo: No Recent Hopitalizations: No Physical Abuse: No Sexual Abuse: No Mistreated: No Fear: No Immunizations Up To Date Tetanus Booster (TDap): More than 5yrs PED Vaccines UTD: No Date of Pneumonia Vaccine: Jan 22, 2014 Date of Influenza Vaccine: Jan 31, 2018 Seasonal Allergies Seasonal Allergies: Yes Past Medical History Surgeries: Yes Bladder Surgery, Gallbladder, Hysterectomy, Joint Replacement, Oophorectomy, Orthopedic, Thyroidectomy, Tonsillectomy Respiratory: No Currently Using CPAP: No Currently Using BIPAP: No Cardiac: Yes ("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) Heart Murmur, Hypertension, Valvular Heart Disease Neurological: Yes Concussion, Headaches /Migraines 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 Disorders: No Female 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 Disorders: Denies 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, Menopausal Sexually Transmitted Disease: No HIV/AIDS: No Genitourinary: Yes UTI-Chronic Gastrointestinal: Yes Gastroesophageal Reflux, Diverticulosis, Hiatal Hernia, Ulcer Musculoskeletal: Yes Arthritis, Chronic Back Pain Endocrine: Yes (THYROID NODULES-S/P THYROIDECTOMY) Hypothyroidsim, Diabetes, Non-Insulin dep HEENT: No Loss of Vision: Bilateral Hearing Impairment: Denies Cancer: Yes Skin Did You Recieve Any Treatments: Yes What Type of Treatment Did You: Surgical Intervention Psychosocial: Yes Anxiety, PTSD, Depression Integumentary: Yes (SKIN CANCERS) Blood Disorders: No Adverse Reaction/Blood Tranf: No Family Medical History Arthritis G8 BROTHER G8 SISTER Cardiovascular disease 19 MOTHER Completed stroke G8 BROTHER G8 SISTER Congenital disease Dementia G8 SISTER Diabetes mellitus G8 BROTHER Hypertension 19 FATHER 19 MOTHER G8 BROTHER G8 SISTER Respiratory disorder G8 SISTER Heart Disease, Cancer, Diabetes Physical Exam Vital Signs Vital Signs - First Documented 02/22/19 02/22/19 13:33 17:10 Temp 36.7 Pulse 56 Resp 17 B/P (MAP) 187/82 (117) Pulse Ox 98 O2 Delivery Room Air Capillary Refill : Less Than 3 Seconds Height, Weight, BMI Height: 5'3.00" Weight: 190lbs. 8.3oz. 86.026188vf; 34.00 BMI Method:Stated General Appearance: WD/WN, no apparent distress HEENT: PERRL/EOMI, normal ENT inspection Neck: normal inspection, tender midline Cardiovascular: regular rate, rhythm, no edema, no murmur Respiratory: lungs clear, normal breath sounds, no respiratory distress, no accessory muscle use Gastrointestinal: normal bowel sounds, soft, tenderness (Right upper quadrant) Back: normal inspection Extremities: other (Tenderness over the thenar portion of the right hand. Swelling and ecchymosis over the lateral left wrist. Tenderness over the right knee. Tenderness in the mid left lower leg. Tenderness over the proximal right shoulder and distal clavicle) Neurologic/Psychiatric: branch examiner II-XII nml as tested, no motor/sensory deficits, alert, normal mood/affect, oriented x 3 Skin: warm/dry, ecchymosis Letcher Coma Score Best Eye Response: (4) Open Spontaneously Best Verbal Response: (5) Oriented Best Motor Response: (6) Obeys Commands Letcher Total: 15 Progress/Results/Core Measures Results/Orders Lab Results Laboratory Tests Test 02/22/19 16:19 Range/Units Urine Color YELLOW Urine Clarity SL CLOUDY Urine pH 6.0 5-9 Urine Specific [place] 1.020 1.016-1.022 Urine Protein NEGATIVE NEGATIVE Urine Glucose (UA) NEGATIVE NEGATIVE Urine Ketones NEGATIVE NEGATIVE Urine Nitrite POSITIVE NEGATIVE Urine Bilirubin NEGATIVE NEGATIVE Urine Urobilinogen 0.2 < = 1.0 MG/DL Urine Leukocyte Esterase NEGATIVE NEGATIVE Urine RBC (Auto) NEGATIVE NEGATIVE Urine RBC NONE /HPF Urine WBC 5-10 H /HPF Urine Squamous Epithelial Cells 2-5 /HPF Urine Crystals NONE /LPF Urine Bacteria LARGE H /HPF Urine Casts NONE /LPF Urine Mucus NEGATIVE /LPF Urine Culture Indicated YES My Orders Orders - MARCO ANTONIO CANTOR MD Ct Head/Cervical Spine Wo (02/22/19 14:20) Ct Chest/Abdomen/Pelvis Wo (02/22/19 14:20) Wrist, Left, 3 Views Or More (02/22/19 14:20) Hand, Right, 3 Views (02/22/19 14:20) Tibia/Fibula, Left, 2 Views (02/22/19 14:20) Knee, Right, 3 Views (02/22/19 14:20) Ua Culture If Indicated (02/22/19 16:18) Urine Culture (02/22/19 16:19) Vital Signs/I&O 02/22/19 02/22/19 02/22/19 13:33 14:13 17:10 Temp 36.7 36.7 Pulse 56 56 86 Resp 17 17 20 B/P (MAP) 187/82 (117) 187/82 (117) 176/71 Pulse Ox 98 O2 Delivery Room Air Room Air Blood Pressure Mean: 117 POS Progress Progress Note : Progress Note Patient was found to have posterior neck tenderness on exam. C-collar was placed. CT imaging of the head, neck, chest, abdomen, and pelvis was obtained. No acute injuries were identified. Urinary tract infection was identified by urinalysis. She is being treated with Cipro. Diagnostic Imaging Diagonstic Imaging: CT Plain Films/CT/US/NM/MRI: chest, abdomen, pelvis Comments CT chest, abdomen, and pelvis viewed by me and report reviewed. Discussed with radiologist. See report below: NAME: JOHN AHN [facility] REC#: [id number] PT STATUS: REG ER : 1935 PHYSICIAN: MARCO ANTONIO CANTOR MD ADMIT DATE: 02/22/19/ER Signed Date of Exam:02/22/19 CT CHEST/ABDOMEN/PELVIS WO PROCEDURE: CT chest, abdomen, and pelvis without contrast. TECHNIQUE: Multiple contiguous axial images were obtained through the chest, abdomen, and pelvis without the use of intravenous contrast. Auto Exposure Controls were utilized during the CT exam to meet ALARA standards for radiation dose reduction. INDICATION: Fall, chest, abdominal and pelvic pain, trauma. COMPARISON: None. CT CHEST: The heart is enlarged with central vascular congestion. Extensive coronary artery disease. There is no pneumothorax, effusion or hemothorax. No pericardial effusion is identified. Osseous structures appear intact. Thoracic spine and sternum are well aligned. There is no obvious rib fracture. IMPRESSION: 1. No acute trauma within the chest. 2. Cardiac enlargement with central vascular congestion and coronary artery disease. CT ABDOMEN AND PELVIS: The gallbladder is surgically absent. The solid organs appear grossly unremarkable. There is no hemoperitoneum or free air. Diverticulosis seen involving descending and sigmoid colon without diverticulitis. There is no bowel obstruction. Distal ureters and urinary bladder are normal. Advanced atherosclerotic disease is seen throughout the majority of the abdominal aorta and visceral branch vessels. Bilateral hip prostheses are present. There is no periprosthetic fracture visualized on this series. The lumbar spine is well aligned. SI joints are symmetric. IMPRESSION: 1. Advanced atherosclerotic disease without aneurysm. 2. No solid organ or bowel injury identified. 3. Diverticulosis of the sigmoid colon and descending colon without diverticulitis. 4. No fracture. Dictated by: Dictated on workstation # [id number] Dict: 02/22/19 1505 Trans: 02/22/19 1535 [id number] Interpreted by: BEATRICE BIRD Electronically signed by: BEATRICE BIRD 02/22/19 1535 Reviewed: Reviewed by Me, Discussed w/Radiologist Diagonstic Imaging: CT Plain Films/CT/US/NM/MRI: c-spine, head Comments NAME: JOHN AHN MED REC#: [id number] PT STATUS: REG ER : 1935 PHYSICIAN: MARCO ANTONIO CANTOR MD ADMIT DATE: 02/22/19/ER Signed Date of Exam:02/22/19 CT HEAD/CERVICAL SPINE WO PROCEDURE: CT head and CT cervical spine without contrast. TECHNIQUE: Multiple contiguous axial images were obtained through the brain and cervical spine without the use of intravenous contrast. Sagittal and coronal reformations through the cervical spine were then performed. Auto Exposure Controls were utilized during the CT exam to meet ALARA standards for radiation dose reduction. INDICATION: Fall. Neck pain. Right shoulder pain. Comparison is made with prior CT head 10/17/2018. FINDINGS: Noncontrast CT of the head demonstrates age-related global volume loss. There are background microvascular changes in the white matter. There are no CT findings of acute hemorrhage or of an extra-axial collection. There is no mass effect or shift. There is no hydrocephalus. There is no territorial loss of white-white differentiation. Posterior fossa demonstrates no acute process. There are atherosclerotic calcifications within the vessels of the skull base. The mastoids are clear. There is no fluid level in the paranasal sinuses. Orbital contents unremarkable. There is no calvarial abnormality. Cervical spine demonstrates multilevel cervical degenerative disc disease and facet arthropathy. There is a minimal degenerative anterolisthesis of C7 on T1. Craniocervical junction relationships are maintained. There are normal relationships of the lateral masses of C1 and C2. Facets are normally aligned. There is fusion of the C2-C3 facets. There is no facet joint or disc space widening. The vertebral body heights are maintained. There is no acute cervical spine fracture. Most advanced endplate changes are at C5-C6 and C6-C7. There are disc osteophyte complexes at each level where there appears to be oxud-he-ivowfaoc narrowing of the central canal. There is multilevel uncovertebral spurring and facet arthropathy resulting in multiple levels of moderate to advanced foraminal stenosis including on the right at C4-C5 and bilaterally at C5-C6 and C6-C7. The lung apices are clear. There are operative changes of previous thyroidectomy. There are advanced left-sided carotid calcifications. IMPRESSION: 1. Age-related global volume loss and background microvascular changes without CT evidence of an acute intracranial abnormality. 2. Multilevel cervical degenerative disc disease and facet arthropathy without CT findings of traumatic malalignment or acute cervical spine fracture. 3. No high-grade central canal stenosis. Multiple levels of moderate to advanced foraminal stenosis as detailed above. Dictated by: Dictated on workstation # [id number] Dict: 02/22/19 1446 Trans: 02/22/19 1657 [id number] Interpreted by: RISHI MATTHEWS MD Electronically signed by: RISHI MATTHEWS MD 02/22/191656 Reviewed: Reviewed by Me Diagonstic Imaging: Xray Plain Films/CT/US/NM/MRI: hand Comments NAME: JOHN AHN [facility] REC#: [id number] PT STATUS: REG ER : 1935 PHYSICIAN: MARCO ANTONIO CANTOR MD ADMIT DATE: 02/22/19/ER Signed Date of Exam:02/22/19 HAND, RIGHT, 3 VIEWS INDICATION: Fall. FINDINGS: There are background arthritic changes present within the hand and wrist most advanced at the triscaphe joint and throughout the thumb. There are more mild arthritic changes within the interphalangeal joints. There are vascular calcifications. There are no findings of malalignment, joint dislocation or acute fracture. IMPRESSION: 1. 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 Dictated by: Dictated on workstation # [id number] Dict: 02/22/19 1504 Trans: 02/22/19 1656 [id number] Interpreted by: RISHI MATTHEWS MD Electronically signed by: RISHI MATTHEWS MD 02/22/191656 Reviewed: Reviewed by Me Diagonstic Imaging: Xray Plain Films/CT/US/NM/MRI: knee Comments NAME: JOHN AHN [facility] REC#: [id number] PT STATUS: REG ER : 1935 PHYSICIAN: MARCO ANTONIO CANTOR MD ADMIT DATE: 02/22/19/ER Signed Date of Exam:02/22/19 KNEE, RIGHT, 3 VIEWS INDICATION: Right knee injury. COMPARISON: None. FINDINGS: Three views of the right knee demonstrate intact right knee arthroplasty. There is no fracture or dislocation. No loosening or joint effusion. Atherosclerosis is present. IMPRESSION: Stable right knee arthroplasty. No fracture. Dictated by: Dictated on workstation # [id number] Dict: 02/22/19 1503 Trans: 02/22/19 1535 [id number] Interpreted by: BEATRICE BIRD Electronically signed by: BEATRICE BIRD 02/22/19 1535 Reviewed: Reviewed by Me Diagonstic Imaging: Xray Plain Films/CT/US/NM/MRI: leg Comments NAME: JOHN AHN [facility] REC#: [id number] PT STATUS: REG ER : 1935 PHYSICIAN: MARCO ANTONIO CANTOR MD ADMIT DATE: 02/22/19/ER Signed Date of Exam:02/22/19 TIBIA/FIBULA, LEFT, 2 VIEWS INDICATIONS: Left tibia-fibula injury. COMPARISON: None. FINDINGS: Four views of the left tibia-fibula demonstrate intact knee arthroplasty. There is no obvious fracture or dislocation. The ankle mortise is intact. Atherosclerotic disease is present. There is no foreign body. IMPRESSION: No obvious fracture or dislocation. Dictated by: Dictated on workstation # [id number] Dict: 02/22/19 1503 Trans: 02/22/19 1535 [id number] Interpreted by: BEATRICE BIRD Electronically signed by: BEATRICE BIRD 02/22/19 1535 Reviewed: Reviewed by Me Diagonstic Imaging: Xray Plain Films/CT/US/NM/MRI: other (Left wrist) Comments NAME: JOHN AHN [facility] REC#: [id number] PT STATUS: REG ER : 1935 PHYSICIAN: MARCO ANTONIO CANTOR MD ADMIT DATE: 02/22/19/ER Signed Date of Exam:02/22/19 WRIST, LEFT, 3 VIEWS OR MORE INDICATION: Left wrist injury, pain. COMPARISON: None. FINDINGS: Three views of the left wrist demonstrate age-appropriate degenerative joint disease. There is no bony erosion, fracture or dislocation. No foreign body seen. Atherosclerosis is noted. IMPRESSION: No acute fracture or dislocation. Dictated by: Dictated on workstation # [id number] Dict: 02/22/19 1504 Trans: 02/22/19 1535 [id number] Interpreted by: BEATRICE BIRD Electronically signed by: BEATRICE BIRD 02/22/19 1535 Reviewed: Reviewed by Me Departure Impression Primary Impression: Fall on same level from tripping as cause of accidental injury Additional Impressions: Urinary tract infection Qualified Codes: N39.0 - Urinary tract infection, site not specified Multiple contusions Disposition: HOME, SELF-CARE Condition: Stable Departure-Patient Inst. Decision time for Depature: 17:02 Referrals: HIRAL BHAKTA MD (PCP/Family) Primary Care Physician Patient Instructions: Contusion (DC), Urinary Tract Infections in Adults Add. Discharge Instructions: Drink plenty of clear liquids. Complete your antibiotic as prescribed. Contact Dr. Bhakta's office on Saturday or Saturday to review urine culture results. You may use your Percocet as previously prescribed for pain. A half dose may be used if you don't need as much pain control. Return to care if you have worsening symptoms or are not improving as expected over the next several days. Icing in 20 minute intervals may also help with pain and swelling. All discharge instructions reviewed with patient and/or family. Voiced understanding. Scripts Ciprofloxacin HCl (Ciprofloxacin HCl) 250 Mg Tablet 250 MG PO BID, #14 TAB Prov: MARCO ANTONIO CANTOR MD 02/22/19 Copy Copies To 1: HIRAL BHAKTA MD, JOSHUA T MD Feb 22, 2019 17:05 POS
[2019-02-22 17:10] VITALS: BP 176/71
== END 2019-02-22 17:10 | disposition home or self-care (01) ==
LOC: EDUNIT# 13:27 → ER 13:28
DX: S60.212A Contusion of left wrist, initial encounter (principal); N39.0 Urinary tract infection, site not specified; I10 Essential (primary) hypertension; E11.9 Type 2 diabetes mellitus without complications; F41.9 Anxiety disorder, unspecified; G43.909 Migraine, unspecified, not intractable, without status migrainosus; F43.10 Post-traumatic stress disorder, unspecified; F32.9 Major depressive disorder, single episode, unspecified; K21.9 Gastro-esophageal reflux disease without esophagitis; E03.9 Hypothyroidism, unspecified; Z85.828 Personal history of other malignant neoplasm of skin; Z87.820 Personal history of traumatic brain injury; Z87.440 Personal history of urinary (tract) infections; Z88.0 Allergy status to penicillin; Z88.5 Allergy status to narcotic agent; Z88.1 Allergy status to other antibiotic agents; Z88.2 Allergy status to sulfonamides; Z91.040 Latex allergy status; Z88.6 Allergy status to analgesic agent; Z79.82 Long term (current) use of aspirin; Z87.891 Personal history of nicotine dependence; Z90.710 Acquired absence of both cervix and uterus; Z90.89 Acquired absence of other organs; Z82.49 Family history of ischemic heart disease and other diseases of the circulatory system; W01.0XXA Fall on same level from slipping, tripping and stumbling without subsequent striking against object, initial encounter
CPT/HCPCS: 70450; 71250; 72125; 73110; 73130; 73562; 73590; 74176; 81000; 87077; 87088; 87186

== ENCOUNTER 2019-10-13 11:25 | Outpatient (CLI) | payer MEDICARE, OTHER ==
[~2019-10-13] VITALS: Ht 157.5 cm; Wt 94.8 kg
[~2019-10-13 11:25] MED LIST changes: +ACET325T38 PO; +AMLO10TA7 PO; +AMLO5TAB4 PO; +ASPI-983 PO; +CETI10TA21 PO; +CHOL10002 PO; +CHOL4PAC2 PO; +CITA20TA9 PO; +CLON0.2T PO; +CLOP75TA28 PO; +DIAZ5TAB49 PO; +DOXA2TAB PO; +DOXA4TAB2 PO; +EZET10TA17 PO; +FENO145T26 PO; +FLUT16SP22 NSEACH; +ISM60TCR PO; +LACT1CAP62 PO; +MAGN250T35 PO; -MECL-106 PO; +MECL-149 PO; -MEMA5TAB16 PO; +MEMA5TAB43 PO; +MTP100TCR PO; +NITR0.4T39 SL; -OMEP20CA13 PO; +OMEP20CA18 PO; +OMEP40CA27 PO; -OMEP40CA36 PO; +PANT40TA3 PO; +PHEN-640 PO; +PHEN-826 PO; +POLY238P32 PO; +PRAV10TA PO; +SODI30SP2 NSEACH; -TRAM50TA2 PO; +TRIM100T PO; +TRM50T PO
[2019-10-13 12:30] VITALS: BP 149/63
== END 2019-10-13 12:30 | disposition home or self-care (01) ==
LOC: SDC 11:25
PROVIDERS: ATTEND Family Medicine
DX: N39.0 Urinary tract infection, site not specified (principal)
CPT/HCPCS: 76937

== ENCOUNTER → 2019-12-02 | Outpatient (CLI) | payer MEDICARE, OTHER, MEDICAID ==
--- NOTE | 2019-12-02 14:59 | Diagnostic Imaging Report ---
INDICATION: Fall. Pain. Injury. COMPARISON: None. FINDINGS: Three radiographic views of the left foot were obtained. There is a very subtle irregular angulated appearance to the base of the 2nd proximal phalanx. This is only well visualized on the oblique view and is concerning for a fracture. The joint spaces are maintained. Note is made of severe soft tissue swelling of the left foot. Advanced calcified atherosclerosis is also present. IMPRESSION: Findings concerning for a subtle nondisplaced acute fracture of the 2nd proximal phalanx. Correlation with CT or MR may be of benefit for further evaluation. Dictated by: Dictated on workstation # [id number]
== END ==
LOC: RAD 12:29
PROVIDERS: ATTEND Family Medicine
DX: S99.922A Unspecified injury of left foot, initial encounter (principal); W19.XXXA Unspecified fall, initial encounter
CPT/HCPCS: 73630

== ENCOUNTER → 2020-01-07 | Outpatient (CLI) | payer MEDICARE, OTHER, MEDICAID ==
[~2020-01-07] MED LIST changes: +ASPI-1238 PO; -ASPI-983 PO; +BARIUM for suspension 96% w/w (Vanilla Silq Medium Density) PO ONE; +BARIUM for suspension 98% w/w (Vanilla Silq High Density) PO ONE; -CETI10TA21 PO; +CETI10TA49 PO; -PANT40TA3 PO; +PANT40TA52 PO
--- NOTE | 2020-01-07 12:59 | Diagnostic Imaging Report ---
INDICATION: Food getting stuck at the level of the mid sternum. The patient ingested effervescent crystals as well as thin and thick barium and imaging of the esophagus was performed in multiple obliquities. 1 minute and 4 seconds of fluoroscopic time was utilized. Preliminary radiograph over the chest is unremarkable. Postingestion images demonstrate the esophagus to have a smooth contour. No mass or stricture is identified. Barium passes freely into the stomach. No gastroesophageal reflux was demonstrated. No significant hiatal hernia is seen. Images of the stomach are unremarkable. IMPRESSION: Essentially unremarkable esophagram. Dictated by: Dictated on workstation # [id number]
== END ==
LOC: RAD 10:00
PROVIDERS: ATTEND Surgery
DX: R13.10 Dysphagia, unspecified (principal)
CPT/HCPCS: 74220

== ENCOUNTER 2020-02-17 12:20 | Outpatient (RCR) | payer MEDICARE, OTHER, MEDICAID ==
[~2020-02-17] VITALS: Ht 157 cm; Wt 79.5 kg
[~2020-02-17 12:20] MED LIST changes: +ALPH1TAB8 PO; +AMLO-250 PO; +AMLO-251 PO; -AMLO10TA7 PO; -BARIUM for suspension 96% w/w (Vanilla Silq Medium Density) PO ONE; -BARIUM for suspension 98% w/w (Vanilla Silq High Density) PO ONE; +CLN.2T PO; -CLON0.2T PO; +DEXT1DRO7 OP; +FURO20TA4 PO; +HYPR10GE4 OP; +OMEP-401 PO
== END 2020-02-17 12:26 | disposition home or self-care (01) ==
LOC: PREOP 12:20
PROVIDERS: ATTEND Surgery
DX: Z01.812 Encounter for preprocedural laboratory examination (principal); R13.10 Dysphagia, unspecified

== ENCOUNTER 2020-02-23 06:53 | Day surgery (SDC) | payer MEDICARE, OTHER, MEDICAID ==
[~2020-02-23] VITALS: Ht 157 cm; Wt 78.0 kg
[2020-02-23] MEDS ORDERED: LACTATED RINGERS 1,000 ML IV ONE (06:57)
[2020-02-23] MEDS ORDERED: LACTATED RINGERS 1,000 ML IV STA (07:04)
[2020-02-23] MEDS ORDERED: proPOfol 200 MG/20 ML (DIPRIVAN) VIAL IV ONE (07:15)
[2020-02-23 07:17] VITALS: BP 210/71
[2020-02-23 08:20] VITALS: BP 205/88
[2020-02-23 08:25] VITALS: BP 198/86
[2020-02-23 08:30] VITALS: BP_SYST 200; BP_SYST 225; BP_DIAS 81; BP_DIAS 86
[2020-02-23] MEDS ORDERED: PANT40TA2 PO (08:45)
[2020-02-23] MEDS ORDERED: SUCR1TAB36 PO (08:45)
--- NOTE | 2020-02-23 08:46 | Discharge Inst-Simple/Standard ---
Discharge Inst-Standard Discharge Medications New, Converted or Re-Newed RX: Transmitted to Pharmacy Patient Instructions/Follow Up Plan of Care/Instructions/FU: 3 weeks Henna Activity as Tolerated: Yes Discharge Diet: Regular Diet MARYSE UGARTE DO Feb 23, 2020 08:46
--- NOTE | 2020-02-23 08:47 | Progress Note-Post Operative ---
Post-Operative Progess Note Surgeon (s)/Outreach Consultant (s) Surgeon MARYSE UGARTE DO Outreach Consultant: na Pre-Operative Diagnosis dysphagia Post-Operative Diagnosis gastritis Procedure & Operative Findings Date of Procedure 02/23/20 Procedure Performed/Findings egd c biopsies Anesthesia Type per telecommunications support Estimated Blood Loss Estimated blood loss (mL): na Specimens/Packing Specimens Removed antrum, ge MARYSE UGARTE DO Feb 23, 2020 08:47
[2020-02-23 09:00] VITALS: BP 196/74
[2020-02-23 09:25] VITALS: BP 196/74
--- NOTE | 2020-02-23 09:58 | OPERATIVE REPORT ---
DATE OF SERVICE: 02/23/2020 PREOPERATIVE DIAGNOSIS: Dysphagia. POSTOPERATIVE DIAGNOSIS: Gastritis. PROCEDURE: EGD with biopsies. ANESTHESIA: Per CONSULTING NURSE. SURGEON: Maryse Aguillon DO ESTIMATED BLOOD LOSS: None. COMPLICATIONS: None. SPECIMENS: Antrum and GE junction. INDICATIONS: The patient is an 84-year-old female with difficulty swallowing. She understands risks and benefits of procedure and wished to proceed with procedure. She has had previous barium swallow, which demonstrated no acute abnormality. Scope was inserted in mouth, down the esophagus, stomach and into the duodenum without difficulty. There were no polyps, masses or ulcerations within the duodenum. Scope was slowly retracted back into the stomach with erythematous changes consistent with some slight gastritis. Biopsy was obtained. No other pathology. Small polyp in the body of the stomach, benign in appearance. Scope was retroflexed noting no other pathology. Scope was returned to its normal position, slowly withdrawn to distal esophagus where there were no polyps, masses or ulcerations, no erythematous changes. Biopsy of the GE junction was obtained. No stricture identified. Scope was then slowly retracted back to completely remove noting no other pathology. The patient tolerated procedure well without any complications. She was taken to recovery room in stable condition. RECOMMENDATIONS: The patient will be started on Carafate 1 gram four times a day. Change omeprazole to Protonix 40 mg daily. The patient will follow up in the office in approximately 3 weeks to discuss and see how her symptoms are doing at that time. Any issues before that will be seen at that time. Job ID: [id number] DocumentID: [id number] Dictated Date: 02/23/2020 08:49:23 S[place]der Date: 02/23/2020 09:56:39 Dictated By: MARYSE AGUILLON DO
--- NOTE | 2020-02-23 14:51 | Anesthesia-General Post-Op ---
MAC Patient Condition Mental Status/LOC: Same as Preop Cardiovascular: Satisfactory Nausea/Vomiting: Absent Respiratory: Satisfactory Pain: Controlled Complications: Absent Post Op Complications Complications None Follow Up Care/Instructions Patient Instructions None needed. Anesthesiology Discharge Order Discharge Order Patient is doing well, no complaints, stable vital signs, no apparent adverse anesthesia problems. No complications reported per nursing. ALEXIS FRASER CRNA Feb 23, 2020 14:51
== END 2020-02-23 09:25 | disposition home or self-care (01) ==
LOC: ENDO 06:53
PROVIDERS: ATTEND Surgery
DX: K29.50 Unspecified chronic gastritis without bleeding (principal); K21.00 Gastro-esophageal reflux disease with esophagitis, without bleeding; I10 Essential (primary) hypertension; J44.9 Chronic obstructive pulmonary disease, unspecified; F32.9 Major depressive disorder, single episode, unspecified; F41.9 Anxiety disorder, unspecified; E11.9 Type 2 diabetes mellitus without complications; E03.9 Hypothyroidism, unspecified; I25.10 Atherosclerotic heart disease of native coronary artery without angina pectoris; F43.10 Post-traumatic stress disorder, unspecified; K21.9 Gastro-esophageal reflux disease without esophagitis; K44.9 Diaphragmatic hernia without obstruction or gangrene; N39.0 Urinary tract infection, site not specified; K43.2 Incisional hernia without obstruction or gangrene; E66.9 Obesity, unspecified; Z68.31 Body mass index [BMI] 31.0-31.9, adult; Z79.82 Long term (current) use of aspirin; Z91.040 Latex allergy status; Z88.0 Allergy status to penicillin; Z88.5 Allergy status to narcotic agent; Z91.048 Other nonmedicinal substance allergy status; Z91.041 Radiographic dye allergy status; Z88.1 Allergy status to other antibiotic agents; Z88.8 Allergy status to other drugs, medicaments and biological substances; Z85.828 Personal history of other malignant neoplasm of skin
CPT/HCPCS: 88305; 88342

== ENCOUNTER 2020-03-14 12:05 | Inpatient (IN) | payer MEDICARE, OTHER, MEDICAID ==
[~2020-03-14] VITALS: Ht 157.5 cm; Wt 86.3 kg
[~2020-03-14 12:05] MED LIST changes: -DEXT1DRO7 OP; +DEXT1DRO7 OU; -HYPR10GE4 OP; +HYPR10GE4 OU; +PANT40TA2 PO; +SUCR1TAB36 PO
--- NOTE | 2020-03-14 12:33 | ED Cough/URI ---
General Chief Complaint: Respiratory Problems Stated Complaint: SOA Nursing Triage Note: TO ED PER EMS FROM [facility] PER EMS HAS FELT SOA FOR A WHILE. WAS TO HAVE VITURAL APOINTMENT WITH HER DR TODAY,BUT WANTS TO COME TO HOSPITAL. Rachel MORGAN IN ROOM WITH WILL DO COVID SWAB AND START IV Sepsis Screen: No Definite Risk Source: patient Exam Limitations: no limitations History of Present Illness Date Seen by Provider: Mar 14, 2020 Time Seen by Provider: 12:31 Initial Comments To ER by EMS from [facility] with reports of shortness of breath. She has been short of breath for 1 year but today it seemed worse. She does feel anxious. No cough. She is swabbed for Covid several times a week and have all been negative. She reports diffuse pain all over secondary to an "bad body" but she does not want anything for it. She rates the pain all over a 10 out of 10. Timing/Duration: constant Severity/Quality: no cough Prior Episodes/Possible Cause: no prior episodes Associated Symptoms: shortness of breath Allergies and Home Medications Allergies Coded Allergies: sertraline (Verified Allergy, Severe, CANNOT BREATHE, 03/14/17) Cephalosporins (Unverified Allergy, Mild, 03/14/17) Iodinated Contrast Media (Unverified Allergy, Mild, 03/14/17) Penicillins (Unverified Allergy, Mild, 03/14/17) Shellfish (Unverified Allergy, Mild, 03/14/17) atorvastatin (Unverified Allergy, Mild, 03/14/17) clarithromycin (Unverified Allergy, Mild, 03/14/17) codeine (Unverified Allergy, Mild, PT HAS RECEIVED HYDROMORPHONE IN THE PAST, 03/14/17) diltiazem (Unverified Allergy, Mild, 03/14/17) glucagon (Unverified Allergy, Mild, 03/14/17) lisinopril (Unverified Allergy, Mild, 03/14/17) morphine (Unverified Allergy, Mild, PT HAS RECEIVED HYDROMORPHONE IN THE PAST, 03/14/17) nifedipine (Unverified Allergy, Mild, 03/14/17) paroxetine (Unverified Allergy, Mild, 03/14/17) sulfamethoxazole (Unverified Allergy, Mild, 03/14/17) acetaminophen (Verified Allergy, Unknown, 03/14/17) benzocaine (Verified Allergy, Unknown, methemoglobinemia, 05/14/18) latex (Verified Allergy, Unknown, 03/14/17) meperidine (Verified Allergy, Unknown, PATIENT HAS RECEIVED FENTANYL IN THE PAST, 03/14/17) metoprolol (Verified Allergy, Unknown, 02/17/20) propoxyphene (Verified Allergy, Unknown, 03/14/17) sulindac (Verified Allergy, Unknown, 03/14/17) tramadol (Verified Allergy, Unknown, 04/12/17) Uncoded Allergies: TAPE (Allergy, Unknown, CAN USE PAPER TAPE, 12/08/08) Home Medications Crtcg-R-Vywntmiykhedf 150 Unit Tablet, 150 UNIT PO TID, (Reported) Amlodipine Besylate 5 Mg Tablet, 5 MG PO BID, (Reported) Cholecalciferol (Vitamin D3) 25 Mcg Tablet, 25 MCG PO DAILY, (Reported) Citalopram Hydrobromide 20 Mg Tablet, 20 MG PO BID, (Reported) Clopidogrel Bisulfate 75 Mg Tablet, 75 MG PO DAILY Prescribed by: BENJI LESLIE on 09/21/19 1602 Dextran 70/Hypromellose 1 Each Droperette, 1 EACH OP TID, (Reported) Doxazosin Mesylate 2 Mg Tablet, 2 MG PO BID Prescribed by: BENJI LESLIE on 09/22/19 0846 Ezetimibe 10 Mg Tablet, 10 MG PO DAILY, (Reported) Fenofibrate Nanocrystallized 145 Mg Tablet, 145 MG PO DAILY, (Reported) Furosemide 20 Mg Tablet, 20 MG PO MoWeFr, (Reported) Glipizide 5 Mg Tablet, 5 MG PO BID, (Reported) Hypromellose 10 Gm Gel..gram., 10 GM OP HS, (Reported) Isosorbide Mononitrate 60 Mg Tab, 60 MG PO DAILY Prescribed by: BENJI LESLIE on 09/21/19 160 Lactobacillus Acidophilus 1 Each Capsule, 1 EACH PO DAILY, (Reported) Levothyroxine Sodium 125 Mcg Tablet, 125 MCG PO DAILY, (Reported) Magnesium Oxide 250 Mg Tablet, 250 MG PO DAILY, (Reported) Metoprolol Succinate 100 Mg Tab.er.24h, 100 MG PO DAILY Prescribed by: BENJI LESLIE on 09/21/19 160 Pantoprazole Sodium 40 Mg Tablet.dr, 40 MG PO DAILY Prescribed by: MARYSE UGARTE on 02/23/20 0845 Pravastatin Sodium 10 Mg Tablet, 10 MG PO Q48H Prescribed by: BENJI LESLIE on 09/22/19 0846 Sucralfate 1 Gm Tablet, 1 GM PO QID Make into a slurry with a very small amount of water. Prescribed by: MRAYSE UGARTE on 02/23/20 0845 Trimethoprim 100 Mg Tablet, 100 MG PO HS, (Reported) Patient Home Medication List Home Medication List Reviewed: Yes Review of Systems Review of Systems Constitutional: see HPI; No chills, No fever EENTM: see HPI Respiratory: see HPI; No cough; dyspnea on exertion, short of breath Cardiovascular: No chest pain Genitourinary: no symptoms reported Musculoskeletal: no symptoms reported Skin: no symptoms reported Psychiatric/Neurological: No Symptoms Reported Past Xfpjysa-Kuegio-Eckjle Hx Patient Social History Type Used: Cigarettes Former Smoker, Quit: Jan 30, 1966 2nd Hand Smoke Exposure: Yes Recent Foreign Travel: No Contact w/Someone Who Travel: No Recent Infectious Disease Expo: No Recent Hopitalizations: No Immunizations Up To Date Tetanus Booster (TDap): More than 5yrs PED Vaccines UTD: No Date of Pneumonia Vaccine: Jan 22, 2019 Date of Influenza Vaccine: Jan 04, 2020 Seasonal Allergies Seasonal Allergies: Yes Past Medical History Surgeries: Yes (BILAT TKR, BILAT THR, SHOULDER, LAP CYNTHIA, SEVERAL HERNIA) Bladder Surgery, Gallbladder, Hysterectomy, Joint Replacement, Oophorectomy, Orthopedic, Thyroidectomy, Tonsillectomy Respiratory: Yes (O2 2L NC) COPD Currently Using CPAP: No Currently Using BIPAP: No Cardiac: Yes ("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) Heart Murmur, High Cholesterol, Hypertension, Valvular Heart Disease Neurological: Yes (VASCULAR DEMENTIA) Concussion, Headaches /Migraines 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 Disorders: No Female 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 Disorders: 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, 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 Sexually Transmitted Disease: No HIV/AIDS: No Genitourinary: Yes UTI-Chronic Gastrointestinal: Yes Gastroesophageal Reflux, Diverticulosis, Hiatal Hernia, Ulcer Musculoskeletal: Yes (BULGING DISC) Arthritis, Chronic Back Pain Endocrine: Yes (THYROID NODULES-S/P THYROIDECTOMY) Hypothyroidsim, Diabetes, Non-Insulin dep HEENT: Yes (GLASSES) Loss of Vision: Denies Hearing Impairment: Hard of Hearing Cancer: Yes Skin Did You Recieve Any Treatments: Yes What Type of Treatment Did You: Surgical Intervention Psychosocial: Yes Anxiety, PTSD, Depression Integumentary: Yes (SKIN CANCERS) Blood Disorders: No Adverse Reaction/Blood Tranf: No (HAS HAD BLOOD WITH NO REACTION) Family Medical History Arthritis G8 BROTHER G8 SISTER Cardiovascular disease 19 MOTHER Completed stroke G8 BROTHER G8 SISTER Congenital disease Dementia G8 SISTER Diabetes mellitus G8 BROTHER Hypertension 19 FATHER 19 MOTHER G8 BROTHER G8 SISTER Respiratory disorder G8 SISTER Heart Disease, Cancer, Diabetes Physical Exam Vital Signs - First Documented 03/14/20 12:10 Temp 35.0 Pulse 63 Resp 18 Pulse Ox 94 O2 Delivery Room Air Capillary Refill : Less Than 3 Seconds Height: 5'3.00" Weight: 190lbs. 8.3oz. 86.079947pw; 33.00 BMI Method:Stated General Appearance: WD/WN, no apparent distress, other (No distress alert and oriented oxygen saturation 93% on 2 L which is her baseline.) Eyes: Bilateral Eye Normal Inspection, Bilateral Eye PERRL, Bilateral Eye EOMI HEENT: PERRL/EOMI, normal ENT inspection Neck: non-tender, full range of motion Respiratory: normal breath sounds, no respiratory distress, no accessory muscle use Cardiovascular: regular rate, rhythm Gastrointestinal: normal bowel sounds, soft Extremities: normal range of motion, non-tender, other (1+ pedal edema bilateral lower extremities) Neurologic/Psychiatric: alert, normal mood/affect, oriented x 3 Skin: normal color, warm/dry Progress/Results/Core Measures Suspected Sepsis Recent Fever Within 48 Hours: No Infection Criteria Present: None New/Unexplained Altered Menta: No Sepsis Screen: No Definite Risk SIRS Temperature: Pulse: 63 Respiratory Rate: 18 Laboratory Tests 03/14/20 12:21: White Blood Count 7.3 Blood Pressure / Mean: Laboratory Tests 03/14/20 12:21: Creatinine 2.86H, INR Comment 1.1, Platelet Count 235, Total Bilirubin 0.4 Results/Orders Lab Results Laboratory Tests Test 03/14/20 12:21 Range/Units White Blood Count 7.3 4.3-11.0 10^3/uL Red Blood Count 3.49 L 3.80-5.11 10^6/uL Hemoglobin 10.3 L 11.5-16.0 g/dL Hematocrit 34 L 35-52 % Mean Corpuscular Volume 97 80-99 fL Mean Corpuscular Hemoglobin 30 25-34 pg Mean Corpuscular Hemoglobin Concent 30 L 32-36 g/dL Red Cell Distribution Width 16.5 H 10.0-14.5 % Platelet Count 235 130-400 10^3/uL Mean Platelet Volume 9.5 9.0-12.2 fL Immature Granulocyte % (Auto) 0 % Neutrophils (%) (Auto) 92 H 42-75 % Lymphocytes (%) (Auto) 4 L 12-44 % Monocytes (%) (Auto) 3 0-12 % Eosinophils (%) (Auto) 1 0-10 % Basophils (%) (Auto) 0 0-10 % Neutrophils # (Auto) 6.7 1.8-7.8 10^3/uL Lymphocytes # (Auto) 0.3 L 1.0-4.0 10^3/uL Monocytes # (Auto) 0.2 0.0-1.0 10^3/uL Eosinophils # (Auto) 0.1 0.0-0.3 10^3/uL Basophils # (Auto) 0.0 0.0-0.1 10^3/uL Immature Granulocyte # (Auto) 0.0 0.0-0.1 10^3/uL Neutrophils % (Manual) 91 % Lymphocytes % (Manual) 3 % Monocytes % (Manual) 5 % Eosinophils % (Manual) 1 % Basophils % (Manual) 0 % Band Neutrophils 0 % Anisocytosis SLIGHT Elliptocytes SLIGHT Prothrombin Time 15.0 H 12.2-14.7 SEC INR Comment 1.1 0.8-1.4 D-Dimer 0.57 H 0.00-0.49 UG/ML Sodium Level 143 135-145 MMOL/L Potassium Level 4.3 3.6-5.0 MMOL/L Chloride Level 107 98-107 MMOL/L Carbon Dioxide Level 23 21-32 MMOL/L Anion Gap 13 5-14 MMOL/L Blood Urea Nitrogen 63 H 7-18 MG/DL Creatinine 2.86 H 0.60-1.30 MG/DL Estimat Glomerular Filtration Rate 16 BUN/Creatinine Ratio 22 Glucose Level 184 H 70-105 MG/DL Calcium Level 9.0 8.5-10.1 MG/DL Corrected Calcium 9.4 8.5-10.1 MG/DL Total Bilirubin 0.4 0.1-1.0 MG/DL Aspartate Amino Transf (AST/SGOT) 27 5-34 U/L Alanine Aminotransferase (ALT/SGPT) 15 0-55 U/L Alkaline Phosphatase 36 L 40-136 U/L Troponin I < 0.028 <0.028 NG/ML B-Type Natriuretic Peptide 1129.4 H <100.0 PG/ML Total Protein 6.8 6.4-8.2 GM/DL Albumin 3.5 3.2-4.5 GM/DL Coronavirus 2019 ([facility]) Negative Negative My Orders Orders - SHAQUILLE NORRIS APRN Cbc With Automated Diff (03/14/20 12:29) Comprehensive Metabolic Panel (03/14/20 12:29) Protime With Inr (03/14/20 12:29) BNP (03/14/20 12:29) Troponin I (03/14/20 12:29) Ekg Tracing (03/14/20 12:29) Covid 19 Inhouse Test (03/14/20 12:29) Chest 1 View, Ap/Pa Only (03/14/20 12:29) Fibrin Degradation Products (03/14/20 12:29) Manual Differential (03/14/20 12:21) Procalcitonin (Pct) (03/14/20 14:07) Furosemide Injection (Lasix Injection) (03/14/20 14:45) Vital Signs/I&O 03/14/20 12:10 Temp 35.0 Pulse 63 Resp 18 B/P (MAP) Pulse Ox 94 O2 Delivery Room Air Capillary Refill : Less Than 3 Seconds Departure Communication (Admissions) Time/Spoke to Admitting Phy: 14:[address] Bhakta and Dr. Gambino, will admit, increase her Lasix from 20 mg every other day to 40 mg IV daily Impression Primary Impression: CHF exacerbation Disposition: ADMITTED INPATIENT Condition: Stable Admissions Decision to Admit Reason: Admit from ER (General) Decision to Admit/Date: Mar 14, 2020 Time/Decision to Admit Time: 14:25 Departure-Patient Inst. Referrals: HIRAL BHAKTA MD (PCP/Family) Primary Care Physician SHAQUILLE NORRIS APRN Mar 14, 2020 12:33
--- NOTE | 2020-03-14 12:35 | NUR ---
COVID SWAB BY Rachel ONRRIS APRN
[2020-03-14 12:38] LABS: BASOPHILS % (AUTO) 0 % (0-10); EOSINOPHILS # (AUTO) 0.1 10^3/uL (0.0-0.3); EOSINOPHILS % (AUTO) 1 % (0-10); HEMATOCRIT 34 % (35-52); HEMOGLOBIN 10.3 g/dL (11.5-16.0); LYMPHOCYTES # (AUTO) 0.3 10^3/uL (1.0-4.0); LYMPHOCYTES % (AUTO) 4 % (12-44); MEAN CORPUSCULAR HEMOGLOBIN 30 pg (25-34); MEAN CORPUSCULAR HGB CONC 30 g/dL (32-36); MEAN CORPUSCULAR VOLUME 97 fL (80-99); MEAN PLATELET VOLUME 9.5 fL (9.0-12.2); MONOCYTES # (AUTO) 0.2 10^3/uL (0.0-1.0); MONOCYTES % (AUTO) 3 % (0-12); NEUTROPHILS # (AUTO) 6.7 10^3/uL (1.8-7.8); NEUTROPHILS % (AUTO) 92 % (42-75); PLATELET COUNT 235 10^3/uL (130-400); WHITE BLOOD COUNT 7.3 10^3/uL (4.3-11.0)
[2020-03-14 12:39] LABS: ALBUMIN 3.5 GM/DL (3.2-4.5); CHLORIDE 107 MMOL/L (98-107); POTASSIUM 4.3 MMOL/L (3.6-5.0); SODIUM 143 MMOL/L (135-145)
[2020-03-14 12:42] LABS: GLUCOSE 184 MG/DL (70-105); TOTAL PROTEIN 6.8 GM/DL (6.4-8.2)
[2020-03-14 12:43] LABS: CARBON DIOXIDE 23 MMOL/L (21-32)
[2020-03-14 12:44] LABS: BILIRUBIN,TOTAL 0.4 MG/DL (0.1-1.0)
[2020-03-14 12:45] LABS: ALKALINE PHOSPHATASE 36 U/L (40-136)
[2020-03-14 12:46] LABS: CREATININE SERUM 2.86 MG/DL (0.60-1.30); FIBRIN DEGRADATION PRODUCTS 0.57 UG/ML (0.00-0.49); GFR ESTIMATED 16; INR 1.1 (0.8-1.4)
[2020-03-14 12:47] LABS: BUN/CREATININE RATIO 22
[2020-03-14 12:48] LABS: ALANINE AMINOTRANSFERASE 15 U/L (0-55)
[2020-03-14 13:15] LABS: ANISOCYTOSIS SLIGHT; BAND NEUTROPHILS 0 %; BASOPHILS % (MANUAL) 0 %; ELLIPT/OVALOCYTES SLIGHT; EOSINOPHILS % (MANUAL) 1 %; LYMPHOCYTES % (MANUAL) 3 %; MONOCYTES % (MANUAL) 5 %; NEUTROPHILS % (MANUAL) 91 %
--- NOTE | 2020-03-14 14:14 | Diagnostic Imaging Report ---
INDICATION: Dyspnea. COMPARISON: Comparison is made to prior examination of 01/07/2020. FINDINGS: There is cardiomegaly. There are bilateral perihilar infiltrates, left greater than right. There is no pleural effusion or pneumothorax. Mediastinum is unremarkable. IMPRESSION: Bilateral perihilar infiltrates suspect for pneumonia, although underlying congestive failure cannot be excluded. Recommend clinical correlation. Dictated by: Dictated on workstation # [id number]
[2020-03-14] MEDS ORDERED: FUROSEMIDE 40 MG/4 ML INJ (LASIX) IVP ONE (14:45)
--- NOTE | 2020-03-14 14:53 | NUR ---
[facility] MED SHEET PLACED ON ADMIT CHART
[2020-03-14] MEDS ORDERED: oxyCODONE/APAP 5/325MG (PERCOCET 5) TABLET PO ONE (15:00)
[2020-03-14] MEDS ORDERED: CATHETER FLUSH 10 ML SYR IV PRN (16:30)
[2020-03-14 16:34] VITALS: BP 160/73
[2020-03-14 16:45] VITALS: BP 160/73
[2020-03-14] MEDS ORDERED: RT-ALBUTEROL/IPRATROPIUM 3 ML (DUONEB) VIAL INH PRN (17:00)
--- NOTE | 2020-03-14 17:55 | Consultation-Cardiology ---
HPI-Cardiology Cardiology Consultation Date of Consultation 03/14/20 Date of Admission Time Seen by Provider: 17:50 Indication: Shortness of breath HPI 84 years old lady admitted with increasing shortness of breath and peripheral edema, denied any chest pain, no palpitation. No syncope or near syncopal episode. Has generalized body ache, reporting multiple falls Home Medications & Allergies Allergies: Coded Allergies: sertraline (Verified Allergy, Severe, CANNOT BREATHE, 03/14/17) Cephalosporins (Unverified Allergy, Mild, 03/14/17) Iodinated Contrast Media (Unverified Allergy, Mild, 03/14/17) Penicillins (Unverified Allergy, Mild, 03/14/17) Shellfish (Unverified Allergy, Mild, 03/14/17) atorvastatin (Unverified Allergy, Mild, 03/14/17) clarithromycin (Unverified Allergy, Mild, 03/14/17) codeine (Unverified Allergy, Mild, PT HAS RECEIVED HYDROMORPHONE IN THE PAST, 03/14/17) diltiazem (Unverified Allergy, Mild, 03/14/17) glucagon (Unverified Allergy, Mild, 03/14/17) lisinopril (Unverified Allergy, Mild, 03/14/17) morphine (Unverified Allergy, Mild, PT HAS RECEIVED HYDROMORPHONE IN THE PAST, 03/14/17) nifedipine (Unverified Allergy, Mild, 03/14/17) paroxetine (Unverified Allergy, Mild, 03/14/17) sulfamethoxazole (Unverified Allergy, Mild, 03/14/17) acetaminophen (Verified Allergy, Unknown, 03/14/17) benzocaine (Verified Allergy, Unknown, methemoglobinemia, 05/14/18) latex (Verified Allergy, Unknown, 03/14/17) meperidine (Verified Allergy, Unknown, PATIENT HAS RECEIVED FENTANYL IN THE PAST, 03/14/17) metoprolol (Verified Allergy, Unknown, 02/17/20) propoxyphene (Verified Allergy, Unknown, 03/14/17) sulindac (Verified Allergy, Unknown, 03/14/17) tramadol (Verified Allergy, Unknown, 04/12/17) Uncoded Allergies: TAPE (Allergy, Unknown, CAN USE PAPER TAPE, 12/08/08) Home Medication List Reviewed: Yes [id number]-Dyzcwe-Lmuwug Hx Patient Social History Marital Status: Alcohol Use: Denies Use Recreational Drug Use: No Smoking Status: Never a Smoker Former smoker/When Quit: Jun 01, 1966 Type Used: Cigarettes 2nd Hand Smoke Exposure: Yes Recent Foreign Travel: No Recent Infectious Disease Expo: No Recent Hopitalizations: No Immunizations Up To Date Tetanus Booster (TDap): More than 5yrs Date of Pneumonia Vaccine: Jan 22, 2019 Date of Influenza Vaccine: Jan 04, 2020 Past Medical History Discussed below Family Medical History Significant Family History: Heart Disease, Cancer, Diabetes Family History: Arthritis G8 BROTHER G8 SISTER Cardiovascular disease 19 MOTHER Completed stroke G8 BROTHER G8 SISTER Congenital disease Dementia G8 SISTER Diabetes mellitus G8 BROTHER Hypertension 19 FATHER 19 MOTHER G8 BROTHER G8 SISTER Respiratory disorder G8 SISTER Review of Systems-General Review of Systems Constitutional: see HPI; No chills, No fever EENTM: see HPI Respiratory: see HPI; No cough; dyspnea on exertion, short of breath Cardiovascular: No chest pain; edema Genitourinary: no symptoms reported Musculoskeletal: no symptoms reported Skin: no symptoms reported Psychiatric/Neurological: No Symptoms Reported Reviewed Test Results Reviewed Test Results Lab Laboratory Tests Test 03/14/20 12:21 Range/Units White Blood Count 7.3 4.3-11.0 10^3/uL Red Blood Count 3.49 L 3.80-5.11 10^6/uL Hemoglobin 10.3 L 11.5-16.0 g/dL Hematocrit 34 L 35-52 % Mean Corpuscular Volume 97 80-99 fL Mean Corpuscular Hemoglobin 30 25-34 pg Mean Corpuscular Hemoglobin Concent 30 L 32-36 g/dL Red Cell Distribution Width 16.5 H 10.0-14.5 % Platelet Count 235 130-400 10^3/uL Mean Platelet Volume 9.5 9.0-12.2 fL Immature Granulocyte % (Auto) 0 % Neutrophils (%) (Auto) 92 H 42-75 % Lymphocytes (%) (Auto) 4 L 12-44 % Monocytes (%) (Auto) 3 0-12 % Eosinophils (%) (Auto) 1 0-10 % Basophils (%) (Auto) 0 0-10 % Neutrophils # (Auto) 6.7 1.8-7.8 10^3/uL Lymphocytes # (Auto) 0.3 L 1.0-4.0 10^3/uL Monocytes # (Auto) 0.2 0.0-1.0 10^3/uL Eosinophils # (Auto) 0.1 0.0-0.3 10^3/uL Basophils # (Auto) 0.0 0.0-0.1 10^3/uL Immature Granulocyte # (Auto) 0.0 0.0-0.1 10^3/uL Neutrophils % (Manual) 91 % Lymphocytes % (Manual) 3 % Monocytes % (Manual) 5 % Eosinophils % (Manual) 1 % Basophils % (Manual) 0 % Band Neutrophils 0 % Anisocytosis SLIGHT Elliptocytes SLIGHT Prothrombin Time 15.0 H 12.2-14.7 SEC INR Comment 1.1 0.8-1.4 D-Dimer 0.57 H 0.00-0.49 UG/ML Sodium Level 143 135-145 MMOL/L Potassium Level 4.3 3.6-5.0 MMOL/L Chloride Level 107 98-107 MMOL/L Carbon Dioxide Level 23 21-32 MMOL/L Anion Gap 13 5-14 MMOL/L Blood Urea Nitrogen 63 H 7-18 MG/DL Creatinine 2.86 H 0.60-1.30 MG/DL Estimat Glomerular Filtration Rate 16 BUN/Creatinine Ratio 22 Glucose Level 184 H 70-105 MG/DL Calcium Level 9.0 8.5-10.1 MG/DL Corrected Calcium 9.4 8.5-10.1 MG/DL Total Bilirubin 0.4 0.1-1.0 MG/DL Aspartate Amino Transf (AST/SGOT) 27 5-34 U/L Alanine Aminotransferase (ALT/SGPT) 15 0-55 U/L Alkaline Phosphatase 36 L 40-136 U/L Troponin I < 0.028 <0.028 NG/ML B-Type Natriuretic Peptide 1129.4 H <100.0 PG/ML Total Protein 6.8 6.4-8.2 GM/DL Albumin 3.5 3.2-4.5 GM/DL Procalcitonin 0.06 <0.10 NG/ML Coronavirus 2019 ([facility]) Negative Negative Physical Exam Physical Exam Vital Signs Vital Signs - First Documented 03/14/20 03/14/20 03/14/20 12:10 15:30 16:45 Temp 35.0 Pulse 63 Resp 18 B/P (MAP) 143/69 Pulse Ox 94 O2 Delivery Room Air O2 Flow Rate 2.00 FiO2 2 Capillary Refill : Less Than 3 Seconds Height, Weight, BMI Height: 5'3.00" Weight: 190lbs. 8.3oz. 86.002619gj; 35.03 BMI Method:Stated General Appearance: No Apparent Distress, WD/WN Eyes: Bilateral Eye Normal Inspection, Bilateral Eye PERRL, Bilateral Eye EOMI HEENT: PERRL/EOMI, TMs Normal, Normal ENT Inspection, Pharynx Normal, Moist Mucous Membranes Neck: Full Range of Motion, Normal Inspection, Non Tender, Supple, Carotid Bruit Respiratory: Chest Non Tender, Normal Breath Sounds, No Accessory Muscle Use, N o Respiratory Distress Cardiovascular: Regular Rate, Rhythm, No Edema, No Gallop, No JVD, No Murmur, Normal Peripheral Pulses Gastrointestinal: Normal Bowel Sounds, No Organomegaly, No Pulsatile Mass, Non Tender, Soft Back: Normal Inspection, No CVA Tenderness, No Vertebral Tenderness Extremity: Normal Capillary Refill, Normal Inspection, Normal Range of Motion, Non Tender, No Calf Tenderness, Pedal Edema Neurologic/Psychiatric: Alert, Oriented x3, No Motor/Sensory Deficits, Normal Mood/Affect Skin: Normal Color, Warm/Dry Lymphatic: No Adenopathy A/P-Cardiology Admission Diagnosis Congestive heart failure, acute on chronic left ventricular diastolic dysfunction nonischemic cardiomyopathy Coronary artery disease Hypertension Hyperlipidemia Assessment/Plan Congestive heart failure, acute left ventricular diastolic dysfunction, last workup showed normal left ventricular systolic function with normal ejection fraction. Had elevated BNP. I will reevaluate 2-D echo Acute on chronic renal insufficiency, chronic kidney disease stage III with diabetic nephropathy. Responding slowly to diuretic, cautious diuresis while monitoring renal function Hypertension, difficult to control. On multiple medication restart home medication monitor blood pressure Coronary artery disease, had a cardiac catheterization done in August [address] Swift showing diffuse moderate coronary artery disease involving all her coronary system with 50 percent stenosis nonobstructive disease. Anemia, monitor H&H Diabetes mellitus, followed and managed by primary care physician History of recurrent UTI with multidrug resistance Degenerative joint disease History of intolerance to statin with intolerant to angiotensin receptor neeru Peripheral arterial disease bilateral peripheral angiography done with Dr. Monahan showing significant obstructive disease Mild bilateral carotid stenosis Chronic pedal edema with history of chronic venous insufficiency History of urinary incontinence Clinical Quality Measures DVT/VTE Risk/Contraindication: Risk Factor Score Per Nursin RFS Level Per Nursing on Admit: 4+=Very High KATHERYN DIANA MD Mar 14, 2020 17:55
[2020-03-14 19:41] VITALS: BP 162/70
[2020-03-14] MEDS: CATHETER FLUSH 10 ML SYR IV SCH (20:16)
[2020-03-14] MEDS: RT-ALBUTEROL/IPRATROPIUM 3 ML (DUONEB) VIAL INH SCH (21:07)
--- NOTE | 2020-03-14 21:23 | NUR ---
pt requesting nausea & pain medication-this rn called Dr. Bhakta reviewed pt home dosing per custodial paper work-orders received, repeated back, dr. Mays agreed. Addendum: 03/14/20 at 2127 by THU HICKS RN Dr. Bhakta agreed to orders received. pt requesting nausea & pain medication-this rn called Dr. Bhakta reviewed pt home dosing per custodial paper work-orders received, repeated back, Dr. Bhakta agreed.
[2020-03-14] MEDS ORDERED: ONDANSETRON 4 MG (ZOFRAN) ORAL DISSOLVE TAB PO PRN (21:30)
[2020-03-14] MEDS: GABAPENTIN 300 MG (NEURONTIN) CAP PO SCH (21:43)
--- NOTE | 2020-03-14 21:45 | NUR ---
pt denies being allergic to acetaminophen, pt states it was Darvocet not the acetaminophen. pt reports that she has taken Tylenol many times without any difficulties.
[2020-03-14] MEDS: oxyCODONE/APAP 10/325MG (PERCOCET 10) TABLET PO PRN (21:48)
[2020-03-14 23:59] VITALS: BP 131/61
[2020-03-15] MEDS: RT-ALBUTEROL/IPRATROPIUM 3 ML (DUONEB) VIAL INH SCH ×4 (03:19→19:10)
[2020-03-15 03:37] VITALS: BP 151/64
[2020-03-15 05:40] LABS: BASOPHILS % (AUTO) 0 % (0-10); EOSINOPHILS # (AUTO) 0.2 10^3/uL (0.0-0.3); EOSINOPHILS % (AUTO) 3 % (0-10); HEMATOCRIT 30 % (35-52); HEMOGLOBIN 8.9 g/dL (11.5-16.0); LYMPHOCYTES # (AUTO) 0.4 10^3/uL (1.0-4.0); LYMPHOCYTES % (AUTO) 5 % (12-44); MEAN CORPUSCULAR HEMOGLOBIN 29 pg (25-34); MEAN CORPUSCULAR HGB CONC 30 g/dL (32-36); MEAN CORPUSCULAR VOLUME 99 fL (80-99); MEAN PLATELET VOLUME 9.6 fL (9.0-12.2); MONOCYTES # (AUTO) 0.6 10^3/uL (0.0-1.0); MONOCYTES % (AUTO) 7 % (0-12); NEUTROPHILS % (AUTO) 84 % (42-75); PLATELET COUNT 223 10^3/uL (130-400); WHITE BLOOD COUNT 8.4 10^3/uL (4.3-11.0)
[2020-03-15 05:52] LABS: ALBUMIN 3.1 GM/DL (3.2-4.5)
[2020-03-15 05:53] LABS: POTASSIUM 3.8 MMOL/L (3.6-5.0)
[2020-03-15 05:54] LABS: CALCIUM 8.5 MG/DL (8.5-10.1)
[2020-03-15] MEDS ORDERED: DEXTROSE 50% 50 ML (IMS) SYR ONE (05:55)
[2020-03-15 05:57] LABS: BILIRUBIN,TOTAL 0.5 MG/DL (0.1-1.0)
[2020-03-15 05:59] LABS: CREATININE SERUM 2.65 MG/DL (0.60-1.30)
[2020-03-15] MEDS: CATHETER FLUSH 10 ML SYR IV SCH ×3 (06:04→21:11)
[2020-03-15] MEDS: KCL 20 MEQ TAB (K-DUR) PO SCH (06:13)
[2020-03-15] MEDS: FUROSEMIDE 40 MG/4 ML INJ (LASIX) IV SCH (06:13)
[2020-03-15 08:00] VITALS: BP 158/71
--- NOTE | 2020-03-15 08:06 | Cardiology Progress Note ---
Subjective Date Seen by Provider: Mar 15, 2020 Time Seen by Provider: 08:04 Subjective/Events-last exam Patient in bed, continues to complain of dyspnea. Denies any chest pain. Patient is complaining of diarrhea, generalized weakness and multiple falling orthostatic dizziness. Review of Systems General: No Chills, No Night Sweats; Fatigue, Malaise; No Appetite, No Other HEENT: No Head Aches, No Visual Changes, No Eye Pain, No Ear Pain, No Dysphasia, No Sinus Congestion, No Post Nasal Drip, No Sore Throat, No Other Pulmonary: Dyspnea; No Cough, No Pleuritic Chest Pain, No Other Cardiovascular: No: Chest Pain, Palpitations, Orthopnea, Paroxysmal Noc. Dyspnea, Edema, Lt Headedness, Other Gastrointestinal: Diarrhea Objective-Cardiology Exam Last Set of Vital Signs Vital Signs 03/14/20 16:45 FiO2 2 Capillary Refill : Less Than 3 Seconds I&O Intake and Output 03/15/20 00:00 Intake Total 490 ml Output Total 675 ml Balance -185 ml Intake Oral 490 ml Output Urine Total 675 ml # Bowel Movements 1 Daily Weight Change No No General: Alert, Oriented X3, Cooperative HEENT: Atraumatic, PERRLA Neck: Supple, No JVD, No Thyromegaly Lungs: Other (bilat rhonchi) Heart: Regular Rate, Normal S1, Normal S2, No Murmurs Abdomen: Normal Bowel Sounds, Soft, No Tenderness Extremities: Other (+1 edema BLE) Skin: No Rashes, No Significant Lesion Neuro: Normal Speech, Cranial Nerves 3-12 NL Psych/Mental Status: Mental Status NL, Mood NL Results Lab Laboratory Tests 03/14/20 12:21 03/15/20 05:09 A/P-Cardiology Admission Diagnosis Congestive heart failure, acute on chronic left ventricular diastolic dysfunction nonischemic cardiomyopathy Coronary artery disease Hypertension Hyperlipidemia Assessment/Plan Congestive heart failure, acute left ventricular diastolic dysfunction, last workup showed normal left ventricular systolic function with normal ejection fraction. started on low-dose diuretics, continue to monitor cautiously. Orthostatic dizziness, generalized weakness, patient is having severe diarrhea and worsening anemia. Might not tolerate aggressive diuresis at this point. Diarrhea, reporting dark stool, questionable GI bleed, evaluate stool for occult blood and workup in progress, managed by primary care team Acute on chronic renal insufficiency, chronic kidney disease stage III with diabetic nephropathy. Responding slowly to diuretic, cautious diuresis while monitoring renal function Hypertension, difficult to control. Intolerant to multiple medications, monitor blood pressure at this time. Having orthostatic dizziness and weakness. Coronary artery disease, had a cardiac catheterization done in August [address] Swift showing diffuse moderate coronary artery disease involving all her coronary system with 50 percent stenosis nonobstructive disease. Anemia, monitor H&H Diabetes mellitus, followed and managed by primary care physician, had an episode of severe hypoglycemia earlier today. History of recurrent UTI with multidrug resistance Degenerative joint disease History of intolerance to statin with intolerant to angiotensin receptor neeru Peripheral arterial disease bilateral peripheral angiography done with Dr. Monahan showing significant obstructive disease Mild bilateral carotid stenosis, continue to monitor as outpatient. Chronic pedal edema with history of chronic venous insufficiency History of urinary incontinence Patient was seen and evaluated with Ethel, examination performed, management plan was discussed, agree with the current scribed note, I made few changes to the note using Italic font Patient is complaining of weakness and orthostatic dizziness in addition to diarrhea Evaluate stool occult blood, continue cautious diuresis with monitoring her blood pressure and renal function Possible endoscopy. Clinical Quality Measures DVT/VTE Risk/Contraindication: Risk Factor Score Per Nursin RFS Level Per Nursing on Admit: 4+=Very High ETHEL MORALES Mar 15, 2020 08:06 KATHERYN DIANA MD Mar 15, 2020 10:28
[2020-03-15] MEDS: GABAPENTIN 300 MG (NEURONTIN) CAP PO SCH ×3 (08:15→21:11)
--- NOTE | 2020-03-15 08:28 | History & Physical ---
ELLYN VILLALOBOS MED STUDENT 03/15/20 0828: History of Present Illness History of Present Illness Reason for visit/HPI Christa Hyatt is an 84 YO female who came to the ER yesterday for worsening SOB and LE swelling. Pt states these symptoms are chronic but were worse yesterday. CXR in the ER showed bilateral perihilar infiltrates. Today, she notes that her leg swelling is a little improved from yesterday. Also notes black diarrhea 3 times yesterday and once today. States she had an EGD by Dr. Ugarte a few weeks ago and has a follow up appointment scheduled in a few days. Has a history of GERD and ulcers. Also having nausea and dry heaving, but is drinking coffee on exam. Has had shingles rash on her left upper back that is improving. Creatinine today is 2.65, improved from yesterday's 2.86. BNP is 1129.4. Hgb down to 8.9 today from 10.3 yesterday. Date of Admission Mar 14, 2020 at 14:27 Date Seen by a Provider: Mar 15, 2020 Time Seen by a Provider: 08:10 I consulted on this patient on 03/15/20 08:23 Attending Physician Hiral Bhakta MD Admitting Physician Hiral Bhakta MD Consult Allergies and Home Medications Allergies Coded Allergies: sertraline (Verified Allergy, Severe, CANNOT BREATHE, 03/14/17) Cephalosporins (Unverified Allergy, Mild, 03/14/17) Iodinated Contrast Media (Unverified Allergy, Mild, 03/14/17) Penicillins (Unverified Allergy, Mild, 03/14/17) Shellfish (Unverified Allergy, Mild, 03/14/17) atorvastatin (Unverified Allergy, Mild, 03/14/17) clarithromycin (Unverified Allergy, Mild, 03/14/17) codeine (Unverified Allergy, Mild, PT HAS RECEIVED HYDROMORPHONE IN THE PAST, 03/14/17) diltiazem (Unverified Allergy, Mild, 03/14/17) glucagon (Unverified Allergy, Mild, 03/14/17) lisinopril (Unverified Allergy, Mild, 03/14/17) morphine (Unverified Allergy, Mild, PT HAS RECEIVED HYDROMORPHONE IN THE PAST, 03/14/17) nifedipine (Unverified Allergy, Mild, 03/14/17) paroxetine (Unverified Allergy, Mild, 03/14/17) sulfamethoxazole (Unverified Allergy, Mild, 03/14/17) acetaminophen (Verified Allergy, Unknown, 03/14/17) benzocaine (Verified Allergy, Unknown, methemoglobinemia, 05/14/18) latex (Verified Allergy, Unknown, 03/14/17) meperidine (Verified Allergy, Unknown, PATIENT HAS RECEIVED FENTANYL IN THE PAST, 03/14/17) metoprolol (Verified Allergy, Unknown, 02/17/20) propoxyphene (Verified Allergy, Unknown, 03/14/17) sulindac (Verified Allergy, Unknown, 03/14/17) tramadol (Verified Allergy, Unknown, 04/12/17) Uncoded Allergies: TAPE (Allergy, Unknown, CAN USE PAPER TAPE, 12/08/08) Home Medications Acetaminophen 325 Mg Capsule, 650 MG PO Q4H PRN for PAIN-MILD (1-4), (Reported) Qsobe-X-Omslofmiczuwj 150 Unit Tablet, 150 UNIT PO TID, (Reported) Amlodipine Besylate 10 Mg Tablet, 10 MG PO HS, (Reported) Aspirin 81 Mg Tab.chew, 81 MG PO DAILY, (Reported) Calcium Carbonate 200 Mg Tab.chew, 400 MG PO Q4H PRN for UPSET STOMACH, (Reported) Calcium Carbonate 200 Mg Tab.chew, 200 MG PO BIDAC, (Reported) Cetirizine HCl 10 Mg Tablet, 10 MG PO DAILY PRN for ALLERGY SYMPTOMS, (Reported) Cholecalciferol (Vitamin D3) 125 Mcg Tablet, 125 MCG PO DAILY, (Reported) Cholestyramine/Aspartame 4 Gm Powd.pack, 4 GM PO DAILY PRN for DIARRHEA, (Reported) MIX WITH 4OZ OF LIQUID Citalopram Hydrobromide 20 Mg Tablet, 20 MG PO BID, (Reported) Clopidogrel Bisulfate 75 Mg Tablet, 75 MG PO DAILY, (Reported) Dextran 70/Hypromellose 1 Each Droperette, 1 DROP OU TID, (Reported) Diclofenac Sodium 100 Gm Gel..gram., 1 APPLIC TOP QID PRN for PAIN-BREAKTHROUGH, (Reported) APPLY TO AFFECTED JOINTS/TISSUE Doxazosin Mesylate 2 Mg Tablet, 2 MG PO BID, (Reported) Ezetimibe 10 Mg Tablet, 10 MG PO DAILY, (Reported) Fenofibrate Nanocrystallized 145 Mg Tablet, 145 MG PO DAILY, (Reported) Ferrous Sulfate 325 Mg Tablet, 325 MG PO DAILY, (Reported) Fluorouracil 40 Gm Cr, 1 APPLIC TP BID PRN for SKIN CANCER, (Reported) APPLY TO AFFECTED SKIN ON FACE FOR 10 DAYS NEEDED Fluticasone Propionate 9.9 Ml Emin[place].susp, 1 SPRAY NSEACH DAILY PRN for ALLERGY SYMPTOMS, (Reported) Furosemide 20 Mg Tablet, 20 MG PO SAT,,SAT, (Reported) Gabapentin 300 Mg Capsule, 300 MG PO TID, (Reported) Glipizide 5 Mg Tablet, 2.5 MG PO BID, (Reported) TAKES OF A 5MG TAB Hypromellose 10 Gm Gel..gram., 1 DROPS OU HS, (Reported) Isosorbide Mononitrate 60 Mg Tab, 60 MG PO DAILY, (Reported) Lactobacillus Acidophilus 1 Each Capsule, 1 EACH PO DAILY, (Reported) Levothyroxine Sodium 125 Mcg Tablet, 125 MCG PO DAILY, (Reported) Magnesium Oxide 250 Mg Tablet, 250 MG PO DAILY, (Reported) Meclizine HCl 25 Mg Tablet, 25 MG PO DAILY PRN for DIZZINESS, (Reported) Metoprolol Succinate 100 Mg Tab.er.24h, 100 MG PO DAILY, (Reported) FOR SBP <100 OR PULSE <55 Nitroglycerin 0.4 Mg Tab.subl, 0.4 MG SL UD PRN for CHEST PAIN (ANGINA), (Reported) Nystatin 15 Gm Cream..g., 1 APPLIC TOP QID PRN for YEAST, (Reported) APPLY UNDER THE BREAST/CODY AREA Ondansetron HCl 4 Mg Tablet, 4 MG PO TID PRN for NAUSEA/VOMITING-1ST LINE, (Reported) Oxycodone HCl/Acetaminophen 1 Each Tablet, 1-2 EA PO Q4H PRN for PAIN-MODERATE (5-7), (Reported) Pantoprazole Sodium 40 Mg Tablet.dr, 40 MG PO DAILY, (Reported) Phenazopyridine HCl 100 Mg Tablet, 100-200 MG PO TID PRN for BLADDER PAIN, (Reported) Polyethylene Glycol 3350 17 Gm Powd.pack, 17 GM PO DAILY PRN for CONSTIPATION- 1ST LINE, (Reported) Pravastatin Sodium 10 Mg Tablet, 10 MG PO Q48H, (Reported) TAKES AT 2000 Sodium Chloride 30 Ml Emin[place], 1 SPRAY NSEACH BID PRN for CONGESTION, (Reported) Sucralfate 1 Gm Tablet, 1 GM PO QID, (Reported) MAKE INTO A SLURRY WITH A SMALL AMOUNT OF WATER Trimethoprim 100 Mg Tablet, 100 MG PO HS, (Reported) Past Crbkivp-Pktbvq-Pzuksp Hx Patient Social History Marrital Status: Alcohol Use: Denies Use Recreational Drug Use: No Smoking Status: Never a Smoker Former Smoker, Quit: Jan 30, 1966 Type Used: Cigarettes 2nd Hand Smoke Exposure: Yes Recent Foreign Travel: No Contact w/other who traveled: No Recent Hopitalizations: No Recent Infectious Disease Expo: No Immunizations Up To Date Tetanus Booster (TDap): More than 5yrs Pediatric: No Date of Pneumonia Vaccine: Jan 22, 2019 Date of Influenza Vaccine: Jan 04, 2020 Seasonal Allergies Seasonal Allergies: Yes Surgeries Yes (BILAT TKR, BILAT THR, SHOULDER, LAP CYNTHIA, SEVERAL HERNIA) Bladder Surgery, Gallbladder, Hysterectomy, Joint Replacement, Oophorectomy, Orthopedic, Thyroidectomy, Tonsillectomy Respiratory Yes (O2 2L NC) Currently Using CPAP: No Currently Using BIPAP: No Cardiovascular Yes ("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) Heart Murmur, High Cholesterol, Hypertension, Valvular Heart Disease Neurological Yes (VASCULAR DEMENTIA) Concussion, Headaches /Migraines 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 System Hx 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 Disorders: No Sexually Transmitted Disease: No HIV/AIDS: No Female 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 Disorders: Denies 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: Hysterectomy, Menopausal Genitourinary Yes UTI-Chronic Gastrointestinal Yes Gastroesophageal Reflux, Diverticulosis, Hiatal Hernia, Ulcer Musculoskeletal Yes (BULGING DISC) Arthritis, Chronic Back Pain Endocrine History of Endocrine Disorders: Yes (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, Diabetes, Non-Insulin dep HEENT History of HEENT Disorders: Yes (GLASSES) Loss of Vision: Denies Hearing Impairment: Hard of Hearing Cancer Yes Skin Did You Recieve Any Treatments: Yes Type of Treatment: Surgical Intervention Psychosocial History of Psychiatric Problem: Yes Behavioral Health Disorders: Anxiety, PTSD, Depression Integumentary History of Skin or Integumenta: Yes (SKIN CANCERS) Blood Transfusions History of Blood Disorders: No Adverse Reaction to a Blood Tr: No (HAS HAD BLOOD WITH NO REACTION) Family Medical History Significant Family History: Heart Disease, Cancer, Diabetes Family Hx: Arthritis G8 BROTHER G8 SISTER Cardiovascular disease 19 MOTHER Completed stroke G8 BROTHER G8 SISTER Congenital disease Dementia G8 SISTER Diabetes mellitus G8 BROTHER Hypertension 19 FATHER 19 MOTHER G8 BROTHER G8 SISTER Respiratory disorder G8 SISTER Review of Systems Constitutional: No chills, No fever EENTM: No vision loss, No dental problems Respiratory: No cough; short of breath Cardiovascular: No chest pain; edema Gastrointestinal: diarrhea, nausea Genitourinary: No dysuria, No frequency Musculoskeletal: No back pain, No joint pain Skin: No change in hair/nails; rash Psychiatric/Neurological: Denies Headache, Denies Numbness All Other Systems Reviewed Negative Unless Noted: Yes (Negative excepted noted.) Physical Exam Vital Signs Vital Signs - First Documented 03/14/20 03/14/20 03/14/20 12:10 15:30 16:45 Temp 35.0 Pulse 63 Resp 18 B/P (MAP) 143/69 Pulse Ox 94 O2 Delivery Room Air O2 Flow Rate 2.00 FiO2 2 Capillary Refill : Less Than 3 Seconds Height, Weight, BMI Height: 5'3.00" Weight: 190lbs. 8.3oz. [id number]; 35.03 BMI Method:Stated General Appearance: No Apparent Distress, WD/WN Eyes: Bilateral Eye Normal Inspection, Bilateral Eye EOMI HEENT: PERRL/EOMI, Normal ENT Inspection Neck: Normal Inspection, Supple Respiratory: No Accessory Muscle Use, No Respiratory Distress, Crackles (bilateral bases) Cardiovascular: Regular Rate, Rhythm, Systolic Murmur Gastrointestinal: Soft, Tenderness (epigastric and LLQ) Rectal: Deferred Back: Other (dry, erythematous rash to left upper back) Extremity: No Calf Tenderness, Other (bilateral LE edema) Neurologic/Psychiatric: Alert, Oriented x3, No Motor/Sensory Deficits, Normal Mood/Affect Skin: Normal Color, Warm/Dry Lymphatic: No Adenopathy Assessment/Plan Assessment and Plan CHF exacerbation melena chronic kidney disease anemia shingles CHF exacerbation -Lasix 40 mg, supplement potassium -consult Dr. Gambino, plans to do 2D echo today melena -consult Dr. Ugarte -guaiac test stool chronic kidney disease -monitor creatinine -caution with Lasix dosing anemia -monitor labs shingles -pain control as needed Admission Diagnosis Admission Status: Inpatient Order (span 2 midnights) Clinical Quality Measures DVT/VTE Risk/Contraindication: Risk Factor Score Per Nursin RFS Level Per Nursing on Admit: 4+=Very High HIRAL BHAKTA MD 03/16/20 0920: History of Present Illness History of Present Illness Reason for visit/HPI CHRISTA IS AN 84 Y/O FEMALE WHO IS WELL KNOWN TO ME FROM CLINIC. SHE PRESENTED TO THE EMERGENCY DEPARTMENT WITH SEVERE SHORTNESS OF BREATH, BILATERAL INFILTRATES CONSISTENT WITH HEART FAILURE. SHE C/O OF DIARRHEA THAT IS BLACK IN COLOR AND NAUSEA WITH DRY HEAVING. SHE IS ALSO IN RENAL FAILURE. Date of Admission 03/14/2020 Attending Physician HIRAL BHAKTA MD Admitting Physician HIRAL BHAKTA MD Consult CARDIOLOGY Allergies and Home Medications Allergies Coded Allergies: sertraline (Verified Allergy, Severe, CANNOT BREATHE, 03/14/17) Cephalosporins (Unverified Allergy, Mild, 03/14/17) Iodinated Contrast Media (Unverified Allergy, Mild, 03/14/17) Penicillins (Unverified Allergy, Mild, 03/14/17) Shellfish (Unverified Allergy, Mild, 03/14/17) atorvastatin (Unverified Allergy, Mild, 03/14/17) clarithromycin (Unverified Allergy, Mild, 03/14/17) codeine (Unverified Allergy, Mild, PT HAS RECEIVED HYDROMORPHONE IN THE PAST, 03/14/17) diltiazem (Unverified Allergy, Mild, 03/14/17) glucagon (Unverified Allergy, Mild, 03/14/17) lisinopril (Unverified Allergy, Mild, 03/14/17) morphine (Unverified Allergy, Mild, PT HAS RECEIVED HYDROMORPHONE IN THE PAST, 03/14/17) nifedipine (Unverified Allergy, Mild, 03/14/17) paroxetine (Unverified Allergy, Mild, 03/14/17) sulfamethoxazole (Unverified Allergy, Mild, 03/14/17) acetaminophen (Verified Allergy, Unknown, 03/14/17) benzocaine (Verified Allergy, Unknown, methemoglobinemia, 05/14/18) latex (Verified Allergy, Unknown, 03/14/17) meperidine (Verified Allergy, Unknown, PATIENT HAS RECEIVED FENTANYL IN THE PAST, 03/14/17) metoprolol (Verified Allergy, Unknown, 02/17/20) propoxyphene (Verified Allergy, Unknown, 03/14/17) sulindac (Verified Allergy, Unknown, 03/14/17) tramadol (Verified Allergy, Unknown, 04/12/17) Uncoded Allergies: TAPE (Allergy, Unknown, CAN USE PAPER TAPE, 12/08/08) Home Medications Acetaminophen 325 Mg Capsule, 650 MG PO Q4H PRN for PAIN-MILD (1-4), (Reported) Uirnq-F-Skfndkpxkqstk 150 Unit Tablet, 150 UNIT PO TID, (Reported) Amlodipine Besylate 10 Mg Tablet, 10 MG PO HS, (Reported) Aspirin 81 Mg Tab.chew, 81 MG PO DAILY, (Reported) Calcium Carbonate 200 Mg Tab.chew, 400 MG PO Q4H PRN for UPSET STOMACH, (Reported) Calcium Carbonate 200 Mg Tab.chew, 200 MG PO BIDAC, (Reported) Cetirizine HCl 10 Mg Tablet, 10 MG PO DAILY PRN for ALLERGY SYMPTOMS, (Reported) Cholecalciferol (Vitamin D3) 125 Mcg Tablet, 125 MCG PO DAILY, (Reported) Cholestyramine/Aspartame 4 Gm Powd.pack, 4 GM PO DAILY PRN for DIARRHEA, (Reported) MIX WITH 4OZ OF LIQUID Citalopram Hydrobromide 20 Mg Tablet, 20 MG PO BID, (Reported) Clopidogrel Bisulfate 75 Mg Tablet, 75 MG PO DAILY, (Reported) Dextran 70/Hypromellose 1 Each Droperette, 1 DROP OU TID, (Reported) Diclofenac Sodium 100 Gm Gel..gram., 1 APPLIC TOP QID PRN for PAIN-BREAKTHROUGH, (Reported) APPLY TO AFFECTED JOINTS/TISSUE Doxazosin Mesylate 2 Mg Tablet, 2 MG PO BID, (Reported) Ezetimibe 10 Mg Tablet, 10 MG PO DAILY, (Reported) Fenofibrate Nanocrystallized 145 Mg Tablet, 145 MG PO DAILY, (Reported) Ferrous Sulfate 325 Mg Tablet, 325 MG PO DAILY, (Reported) Fluorouracil 40 Gm Cr, 1 APPLIC TP BID PRN for SKIN CANCER, (Reported) APPLY TO AFFECTED SKIN ON FACE FOR 10 DAYS NEEDED Fluticasone Propionate 9.9 Ml Eminence.susp, 1 SPRAY NSEACH DAILY PRN for ALLERGY SYMPTOMS, (Reported) Furosemide 20 Mg Tablet, 20 MG PO SAT,,SAT, (Reported) Gabapentin 300 Mg Capsule, 300 MG PO TID, (Reported) Glipizide 5 Mg Tablet, 2.5 MG PO BID, (Reported) TAKES OF A 5MG TAB Hypromellose 10 Gm Gel..gram., 1 DROPS OU HS, (Reported) Isosorbide Mononitrate 60 Mg Tab, 60 MG PO DAILY, (Reported) Lactobacillus Acidophilus 1 Each Capsule, 1 EACH PO DAILY, (Reported) Levothyroxine Sodium 125 Mcg Tablet, 125 MCG PO DAILY, (Reported) Magnesium Oxide 250 Mg Tablet, 250 MG PO DAILY, (Reported) Meclizine HCl 25 Mg Tablet, 25 MG PO DAILY PRN for DIZZINESS, (Reported) Metoprolol Succinate 100 Mg Tab.er.24h, 100 MG PO DAILY, (Reported) FOR SBP <100 OR PULSE <55 Nitroglycerin 0.4 Mg Tab.subl, 0.4 MG SL UD PRN for CHEST PAIN (ANGINA), (Reported) Nystatin 15 Gm Cream..g., 1 APPLIC TOP QID PRN for YEAST, (Reported) APPLY UNDER THE BREAST/CODY AREA Ondansetron HCl 4 Mg Tablet, 4 MG PO TID PRN for NAUSEA/VOMITING-1ST LINE, (Reported) Oxycodone HCl/Acetaminophen 1 Each Tablet, 1-2 EA PO Q4H PRN for PAIN-MODERATE (5-7), (Reported) Pantoprazole Sodium 40 Mg Tablet.dr, 40 MG PO DAILY, (Reported) Phenazopyridine HCl 100 Mg Tablet, 100-200 MG PO TID PRN for BLADDER PAIN, (Reported) Polyethylene Glycol 3350 17 Gm Powd.pack, 17 GM PO DAILY PRN for CONSTIPATION- 1ST LINE, (Reported) Pravastatin Sodium 10 Mg Tablet, 10 MG PO Q48H, (Reported) TAKES AT 2000 Sodium Chloride 30 Ml Emin[place], 1 SPRAY NSEACH BID PRN for CONGESTION, (Reported) Sucralfate 1 Gm Tablet, 1 GM PO QID, (Reported) MAKE INTO A SLURRY WITH A SMALL AMOUNT OF WATER Trimethoprim 100 Mg Tablet, 100 MG PO HS, (Reported) Patient Home Medication List Home Medication List Reviewed: Yes Past Ykvztux-Dsyztx-Mzlfen Hx Patient Social History Marrital Status: Number of Children: 2 Number of living children: 2 Living Status: LIVES [facility] Alcohol Use: Denies Use Smoking Status: Former Smoker 2nd Hand Smoke Exposure: No Physical Abuse Screen: No Sexual Abuse: No Recent Foreign Travel: No Contact w/other who traveled: No Recent Hopitalizations: No Recent Infectious Disease Expo: No Surgeries Yes Abdominal, Gallbladder Respiratory No Currently Using CPAP: No Currently Using BIPAP: No Cardiovascular Yes Coronary Artery Disease, High Cholesterol, Hypertension Neurological No 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 System : No Hx 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 Disorders: No Sexually Transmitted Disease: No HIV/AIDS: No 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: Menopausal Genitourinary Yes UTI-Chronic Gastrointestinal Yes Gastroesophageal Reflux, Gastrointestinal Bleed, Chronic Diarrhea Musculoskeletal Yes Arthritis HEENT Loss of Vision: Denies Hearing Impairment: Denies Cancer No Psychosocial History of Psychiatric Problem: Yes Behavioral Health Disorders: Anxiety, Depression Integumentary History of Skin or Integumenta: No Blood Transfusions History of Blood Disorders: No Adverse Reaction to a Blood Tr: No Reviewed Nursing Assessment Reviewed/Agree w Nursing PMH: Yes Family Medical History Significant Family History: Heart Disease, Diabetes, Hypertension Family Hx: Arthritis G8 BROTHER G8 SISTER Cardiovascular disease 19 MOTHER Completed stroke G8 BROTHER G8 SISTER Congenital disease Dementia G8 SISTER Diabetes mellitus G8 BROTHER Hypertension 19 FATHER 19 MOTHER G8 BROTHER G8 SISTER Respiratory disorder G8 SISTER Review of Systems Constitutional: No chills; weakness EENTM: hearing loss; No throat pain Respiratory: No cough; dyspnea on exertion, short of breath Cardiovascular: No chest pain; edema, Hx of Intervention Gastrointestinal: diarrhea, nausea, vomiting Genitourinary: frequency Musculoskeletal: No back pain, No joint pain Skin: No change in hair/nails Psychiatric/Neurological: Denies Headache, Denies Numbness; Weakness All Other Systems Reviewed Negative Unless Noted: Yes (Negative excepted noted.) Physical Exam General Appearance: WD/WN, Mild Distress (SITTING ON TOILET, WEAK AND SHAKING) HEENT: PERRL/EOMI, Normal ENT Inspection Neck: Normal Inspection, Supple Respiratory: Chest Non Tender, No Accessory Muscle Use, No Respiratory Distress, Crackles (bilateral bases), Decreased Breath Sounds (IN BASES) Cardiovascular: Regular Rate, Rhythm, Systolic Murmur Gastrointestinal: Normal Bowel Sounds, Soft, Tenderness (epigastric and LLQ) Rectal: Deferred Extremity: Normal Capillary Refill, Normal Inspection, Normal Range of Motion, Non Tender, No Calf Tenderness, No Pedal Edema Neurologic/Psychiatric: Alert, Oriented x3, No Motor/Sensory Deficits, Normal 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 ANEMIA - CHECK LABS IN AM, MONITOR GI TRACK - CHECK GUIAC - CONSULT SURGERY FOR POSSIBLE UPPER GI BLEED GERD - - CONTINUE WITH PROTONIX AND CARAFATE - CONSULT DR. UGARTE CHRONIC UTI - RESUME TRIMETHOPRIM. CKD - ACUTE ON CHRONIC LASIX FOR HEART FAILURE, MONITOR SERIAL LABS. SHINGLES - CONTINUE WITH GABAPENTIN AND CONTINUE WITH TOPICAL THERAPY DVT PROPHYLAXIS WITH SCD'S CANNOT USE LOVENOX FOR CONCERN OF GI BLEED Admission Diagnosis ACUTE ON CHRONIC CONGESTIVE HEART FAILURE HYPERTENSION ANEMIA GERD CHRONIC UTI CKD SHINGLES Admission Status: Inpatient Order (span 2 midnights) Reason for Inpatient Admission: ADMISSION FOR ACUTE CHF AND ACUTE RENAL FAILURE - ADMIT TO HOSPITAL FOR AT LEAST 72 HOURS. Supervisory-Addendum Brief Verification & Attestation Participated in pt care: history, MDM, physical Personally performed: exam, history, MDM, supervision of care Care discussed with: Medical Student Procedures: n/a Results interpretation: Verified all documentation SEE MY DOCUMENTATION - AGREE WITH MED STUDENT NOTE ELLYN VILLALOBOS MED STUDENT Mar 15, 2020 08:28 HIRAL BHAKTA MD Mar 16, 2020 09:20
[2020-03-15] MEDS ORDERED: GABA300C PO (10:07)
[2020-03-15] MEDS ORDERED: DOXA2TAB2 PO (10:07)
[2020-03-15] MEDS ORDERED: AMLO-251 PO (10:07)
[2020-03-15] MEDS ORDERED: FLUT9.9S NSEACH (10:07)
[2020-03-15] MEDS ORDERED: CLOP75TA69 PO (10:07)
[2020-03-15] MEDS ORDERED: CETI10TA17 PO (10:07)
[2020-03-15] MEDS ORDERED: [UNRECOGNIZED DRUG - OTHER] TP (10:07)
[2020-03-15] MEDS ORDERED: NYST15CR TOP (10:07)
[2020-03-15] MEDS ORDERED: CALC500T47 PO (10:07)
[2020-03-15] MEDS ORDERED: SUCR1TAB PO (10:07)
[2020-03-15] MEDS ORDERED: CHOL500044 PO (10:07)
[2020-03-15] MEDS ORDERED: MECL-149 PO (10:07)
[2020-03-15] MEDS ORDERED: DICL100G31 TOP (10:07)
[2020-03-15] MEDS ORDERED: ONDA-105 PO (10:07)
[2020-03-15] MEDS ORDERED: FERR325T24 PO (10:07)
[2020-03-15] MEDS ORDERED: SODI30SP2 NSEACH (10:07)
[2020-03-15] MEDS ORDERED: ACET325C7 PO (10:07)
[2020-03-15] MEDS ORDERED: MTP100TCR PO (10:07)
[2020-03-15] MEDS ORDERED: ISM60TCR PO (10:07)
[2020-03-15] MEDS ORDERED: PHEN-826 PO (10:07)
[2020-03-15] MEDS ORDERED: OXYC-556 PO (10:07)
[2020-03-15] MEDS ORDERED: ASPI-999 PO (10:07)
[2020-03-15] MEDS ORDERED: PANT40TA52 PO (10:07)
[2020-03-15] MEDS ORDERED: PRAV10TA PO (10:07)
[2020-03-15] MEDS ORDERED: POLY17PO6 PO (10:07)
[2020-03-15] MEDS ORDERED: CALC500T7 PO (10:07)
[2020-03-15] MEDS ORDERED: CHOL4PAC3 PO (10:07)
[2020-03-15] MEDS ORDERED: NITR0.4T42 SL (10:07)
[2020-03-15] MEDS ORDERED: FURO-125 PO (10:14)
--- NOTE | 2020-03-15 10:15 | NUR ---
MED REC WAS ENTERED USING THE PHYSICIANS ORDER FROM [facility] I DID CALL THE FACILITY TO CLARIFY DIRECTIONS ON FUROSEMIDE SINCE THE ORDERS SAY "3X WEEKLY". I WAS TOLD BY CARSON AT THE FACILITY THAT TAKES FUROSEMIDE ON ,SAT
--- NOTE | 2020-03-15 11:58 | Consultation - Surgery ---
RUDIMARIELY MED STUDENT 03/15/20 1158: History of Present Illness History of Present Illness Patient Consulted On(jose/time) 03/15/20 11:49 Date Seen by Provider: Mar 15, 2020 Time Seen by Provider: 11:10 Reason for Visit: Shortness of breath History of Present Illness Pt is a 84yo female being consulted for GI bleed starting 2 days ago, presenting to the ER yesterday with increased SOB and LE edema, which she has chronically but has gotten worse over the past 2 days. She also has been having black, loose stools per nursing. She has been feeling nauseated without vomiting, but says that she does dry-heave. Last BM was earlier today. Complains of intermittent abd pain from hernias that she has to the L and R abd. Denies chest pain and vomiting. She has not been able to eat for the past 2 days and last ate yesterday morning, but has been tolerating fluids. Allergies and Home Medications Allergies Coded Allergies: sertraline (Verified Allergy, Severe, CANNOT BREATHE, 03/14/17) Cephalosporins (Unverified Allergy, Mild, 03/14/17) Iodinated Contrast Media (Unverified Allergy, Mild, 03/14/17) Penicillins (Unverified Allergy, Mild, 03/14/17) Shellfish (Unverified Allergy, Mild, 03/14/17) atorvastatin (Unverified Allergy, Mild, 03/14/17) clarithromycin (Unverified Allergy, Mild, 03/14/17) codeine (Unverified Allergy, Mild, PT HAS RECEIVED HYDROMORPHONE IN THE PAST, 03/14/17) diltiazem (Unverified Allergy, Mild, 03/14/17) glucagon (Unverified Allergy, Mild, 03/14/17) lisinopril (Unverified Allergy, Mild, 03/14/17) morphine (Unverified Allergy, Mild, PT HAS RECEIVED HYDROMORPHONE IN THE PAST, 03/14/17) nifedipine (Unverified Allergy, Mild, 03/14/17) paroxetine (Unverified Allergy, Mild, 03/14/17) sulfamethoxazole (Unverified Allergy, Mild, 03/14/17) acetaminophen (Verified Allergy, Unknown, 03/14/17) benzocaine (Verified Allergy, Unknown, methemoglobinemia, 05/14/18) latex (Verified Allergy, Unknown, 03/14/17) meperidine (Verified Allergy, Unknown, PATIENT HAS RECEIVED FENTANYL IN THE PAST, 03/14/17) metoprolol (Verified Allergy, Unknown, 02/17/20) propoxyphene (Verified Allergy, Unknown, 03/14/17) sulindac (Verified Allergy, Unknown, 03/14/17) tramadol (Verified Allergy, Unknown, 04/12/17) Uncoded Allergies: TAPE (Allergy, Unknown, CAN USE PAPER TAPE, 12/08/08) Home Medications Acetaminophen 325 Mg Capsule, 650 MG PO Q4H PRN for PAIN-MILD (1-4), (Reported) Ecual-P-Fircfkeevvmyf 150 Unit Tablet, 150 UNIT PO TID, (Reported) Amlodipine Besylate 10 Mg Tablet, 10 MG PO HS, (Reported) Aspirin 81 Mg Tab.chew, 81 MG PO DAILY, (Reported) Calcium Carbonate 200 Mg Tab.chew, 400 MG PO Q4H PRN for UPSET STOMACH, (Reported) Calcium Carbonate 200 Mg Tab.chew, 200 MG PO BIDAC, (Reported) Cetirizine HCl 10 Mg Tablet, 10 MG PO DAILY PRN for ALLERGY SYMPTOMS, (Reported) Cholecalciferol (Vitamin D3) 125 Mcg Tablet, 125 MCG PO DAILY, (Reported) Cholestyramine/Aspartame 4 Gm Powd.pack, 4 GM PO DAILY PRN for DIARRHEA, (Reported) MIX WITH 4OZ OF LIQUID Citalopram Hydrobromide 20 Mg Tablet, 20 MG PO BID, (Reported) Clopidogrel Bisulfate 75 Mg Tablet, 75 MG PO DAILY, (Reported) Dextran 70/Hypromellose 1 Each Droperette, 1 DROP OU TID, (Reported) Diclofenac Sodium 100 Gm Gel..gram., 1 APPLIC TOP QID PRN for PAIN-BREAKTHROUGH, (Reported) APPLY TO AFFECTED JOINTS/TISSUE Doxazosin Mesylate 2 Mg Tablet, 2 MG PO BID, (Reported) Ezetimibe 10 Mg Tablet, 10 MG PO DAILY, (Reported) Fenofibrate Nanocrystallized 145 Mg Tablet, 145 MG PO DAILY, (Reported) Ferrous Sulfate 325 Mg Tablet, 325 MG PO DAILY, (Reported) Fluorouracil 40 Gm Cr, 1 APPLIC TP BID PRN for SKIN CANCER, (Reported) APPLY TO AFFECTED SKIN ON FACE FOR 10 DAYS NEEDED Fluticasone Propionate 9.9 Ml Hoffman.susp, 1 SPRAY NSEACH DAILY PRN for ALLERGY SYMPTOMS, (Reported) Furosemide 20 Mg Tablet, 20 MG PO SAT,,SAT, (Reported) Gabapentin 300 Mg Capsule, 300 MG PO TID, (Reported) Glipizide 5 Mg Tablet, 2.5 MG PO BID, (Reported) TAKES OF A 5MG TAB Hypromellose 10 Gm Gel..gram., 1 DROPS OU HS, (Reported) Isosorbide Mononitrate 60 Mg Tab, 60 MG PO DAILY, (Reported) Lactobacillus Acidophilus 1 Each Capsule, 1 EACH PO DAILY, (Reported) Levothyroxine Sodium 125 Mcg Tablet, 125 MCG PO DAILY, (Reported) Magnesium Oxide 250 Mg Tablet, 250 MG PO DAILY, (Reported) Meclizine HCl 25 Mg Tablet, 25 MG PO DAILY PRN for DIZZINESS, (Reported) Metoprolol Succinate 100 Mg Tab.er.24h, 100 MG PO DAILY, (Reported) FOR SBP <100 OR PULSE <55 Nitroglycerin 0.4 Mg Tab.subl, 0.4 MG SL UD PRN for CHEST PAIN (ANGINA), (Reported) Nystatin 15 Gm Cream..g., 1 APPLIC TOP QID PRN for YEAST, (Reported) APPLY UNDER THE BREAST/CODY AREA Ondansetron HCl 4 Mg Tablet, 4 MG PO TID PRN for NAUSEA/VOMITING-1ST LINE, (Reported) Oxycodone HCl/Acetaminophen 1 Each Tablet, 1-2 EA PO Q4H PRN for PAIN-MODERATE (5-7), (Reported) Pantoprazole Sodium 40 Mg Tablet.dr, 40 MG PO DAILY, (Reported) Phenazopyridine HCl 100 Mg Tablet, 100-200 MG PO TID PRN for BLADDER PAIN, (Reported) Polyethylene Glycol 3350 17 Gm Powd.pack, 17 GM PO DAILY PRN for CONSTIPATION- 1ST LINE, (Reported) Pravastatin Sodium 10 Mg Tablet, 10 MG PO Q48H, (Reported) TAKES AT 2000 Sodium Chloride 30 Ml Hoffman, 1 SPRAY NSEACH BID PRN for CONGESTION, (Reported) Sucralfate 1 Gm Tablet, 1 GM PO QID, (Reported) MAKE INTO A SLURRY WITH A SMALL AMOUNT OF WATER Trimethoprim 100 Mg Tablet, 100 MG PO HS, (Reported) Patient Home Medication List Home Medication List Reviewed: Yes Past Awxdmas-Bdsryf-Jakpiy Hx Patient Social History Alcohol Use: Denies Use Recreational Drug Use: No Smoking Status: Never a Smoker Former Smoker, Quit: Jan 30, 1966 Type Used: Cigarettes 2nd Hand Smoke Exposure: Yes Recent Foreign Travel: No Contact w/Someone Who Travel: No Recent Infectious Disease Expo: No Recent Hopitalizations: No Immunizations Up To Date Tetanus Booster (TDap): More than 5yrs PED Vaccines UTD: No Date of Pneumonia Vaccine: Jan 22, 2019 Date of Influenza Vaccine: Jan 04, 2020 Seasonal Allergies Seasonal Allergies: Yes Surgeries History of Surgeries: Yes (BILAT TKR, BILAT THR, SHOULDER, LAP CYNTHIA, SEVERAL HERNIA) Surgeries: Bladder Surgery, Gallbladder, Hysterectomy, Joint Replacement, Oophorectomy, Orthopedic, Thyroidectomy, Tonsillectomy Respiratory History of Respiratory Disorde: Yes (O2 2L NC) Respiratory Disorders: COPD Cardiovascular History of Cardiac Disorders: Yes ("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) Cardiac Disorders: Heart Murmur, High Cholesterol, Hypertension, Valvular Heart Disease Neurological History of Neurological Disord: Yes (VASCULAR DEMENTIA) Neurological Disorders: Concussion, Headaches /Migraines 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 System Hx 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 Disorders: No Sexually Transmitted Disease: No HIV/AIDS: No Female 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 Disorders: Denies [employer]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, 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 Genitourinary History of Genitourinary Disor: Yes Genitourinary Disorders: UTI-Chronic Gastrointestinal History of Gastrointestinal Di: Yes Gastrointestinal Disorders: Gastroesophageal Reflux, Diverticulosis, Hiatal Hernia, Ulcer Musculoskeletal History of Musculoskeletal Dis: Yes (BULGING DISC) Musculoskeletal Disorders: Arthritis, Chronic Back Pain Endocrine History of Endocrine Disorders: Yes (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, Diabetes, Non-Insulin dep HEENT History of HEENT Disorders: Yes (GLASSES) Loss of Vision: Denies Hearing Impairment: Hard of Hearing Cancer History of Cancer: Yes Cancer: Skin Psychosocial History of Psychiatric Problem: Yes Behavioral Health Disorders: Anxiety, PTSD, Depression Integumentary History of Skin or Integumenta: Yes (SKIN CANCERS) Blood Transfusions History of Blood Disorders: No Adverse Reaction to a Blood Tr: No (HAS HAD BLOOD WITH NO REACTION) Family Medical History Significant Family History: Heart Disease, Cancer, Diabetes Family Medial History: Arthritis G8 BROTHER G8 SISTER Cardiovascular disease 19 MOTHER Completed stroke G8 BROTHER G8 SISTER Congenital disease Dementia G8 SISTER Diabetes mellitus G8 BROTHER Hypertension 19 FATHER 19 MOTHER G8 BROTHER G8 SISTER Respiratory disorder G8 SISTER Review of Systems-General Constitutional: dizziness, weakness EENTM: no symptoms reported Respiratory: orthopnea, short of breath Cardiovascular: edema (moderate edema to BLE) Gastrointestinal: see HPI Genitourinary: other (farnsworth in place, denies dysuria) Musculoskeletal: no symptoms reported Skin: no symptoms reported Psychiatric/Neurological: Other (she says that she has hallucinations when she closes her eyes eg. sees people) Physical Exam-General Problems Physical Exam Vital Signs Vital Signs - First Documented 03/14/20 03/14/20 03/14/20 12:10 15:30 16:45 Temp 35.0 Pulse 63 Resp 18 B/P (MAP) 143/69 Pulse Ox 94 O2 Delivery Room Air O2 Flow Rate 2.00 FiO2 2 Capillary Refill : Less Than 3 Seconds General Appearance: WD/WN, no apparent distress, obese HEENT: PERRL/EOMI Neck: non-tender, full range of motion, supple, normal inspection Respiratory: chest non-tender, lungs clear, no respiratory distress, no accessory muscle use, decreased breath sounds Cardiovascular: normal peripheral pulses, regular rate, rhythm, no gallop, no JVD, systolic murmur, other (moderate edema to BLE) Gastrointestinal: soft, tenderness (mild tenderness to L and R abd where she has reducible hernias) Rectal: deferred Back: normal inspection, no CVA tenderness, no vertebral tenderness Extremities: normal range of motion, normal inspection, pedal edema (Bila teral), swelling (BLE) Neurologic/Psychiatric: no motor/sensory deficits, alert, normal mood/affect, oriented x 3 Skin: normal color, warm/dry Lymphatic: no adenopathy Data Review Labs Laboratory Tests 03/14/20 12:21: White Blood Count 7.3, Red Blood Count 3.49L, Hemoglobin 10.3L, Hematocrit 34L, Mean Corpuscular Volume 97, Mean Corpuscular Hemoglobin 30, Mean Corpuscular Hemoglobin Concent 30L, Red Cell Distribution Width 16.5H, Platelet Count 235, Mean Platelet Volume 9.5, Immature Granulocyte % (Auto) 0, Neutrophils (%) (Auto) 92H, Lymphocytes (%) (Auto) 4L, Monocytes (%) (Auto) 3, Eosinophils (%) (Auto) 1, Basophils (%) (Auto) 0, Neutrophils # (Auto) 6.7, Lymphocytes # (Auto) 0.3L, Monocytes # (Auto) 0.2, Eosinophils # (Auto) 0.1, Basophils # (Auto) 0.0, Immature Granulocyte # (Auto) 0.0, Neutrophils % (Manual) 91, Lymphocytes % (Manual) 3, Monocytes % (Manual) 5, Eosinophils % (Manual) 1, Basophils % (Manual) 0, Band Neutrophils 0, Anisocytosis SLIGHT, Elliptocytes SLIGHT, Prothrombin Time 15.0H, INR Comment 1.1, D-Dimer 0.57H, Sodium Level 143, Potassium Level 4.3, Chloride Level 107, Carbon Dioxide Level 23, Anion Gap 13, Blood Urea Nitrogen 63H, Creatinine 2.86H, Estimat Glomerular Filtration Rate 16, BUN/Creatinine Ratio 22, Glucose Level 184H, Calcium Level 9.0, Corrected Calcium 9.4, Total Bilirubin 0.4, Aspartate Amino Transf (AST/SGOT) 27, Alanine Aminotransferase (ALT/SGPT) 15, Alkaline Phosphatase 36L, Troponin I < 0.028, B- Type Natriuretic Peptide 1129.4H, Total Protein 6.8, Albumin 3.5, Procalcitonin 0.06, Coronavirus 2019 ([facility]) Negative 03/15/20 05:09: White Blood Count 8.4, Red Blood Count 3.03L, Hemoglobin 8.9L, Hematocrit 30L, Mean Corpuscular Volume 99, Mean Corpuscular Hemoglobin 29, Mean Corpuscular Hemoglobin Concent 30L, Red Cell Distribution Width 16.9H, Platelet Count 223, Mean Platelet Volume 9.6, Immature Granulocyte % (Auto) 1, Neutrophils (%) (Auto) 84H, Lymphocytes (%) (Auto) 5L, Monocytes (%) (Auto) 7, Eosinophils (%) (Auto) 3, Basophils (%) (Auto) 0, Neutrophils # (Auto) 7.0, Lymphocytes # (Auto) 0.4L, Monocytes # (Auto) 0.6, Eosinophils # (Auto) 0.2, Basophils # (Auto) 0.0, Immature Granulocyte # (Auto) 0.1, Sodium Level 138, Potassium Level 3.8, Chloride Level 106, Carbon Dioxide Level 24, Anion Gap 8, Blood Urea Nitrogen 64H, Creatinine 2.65H, Estimat Glomerular Filtration Rate 17, BUN/Creatinine Ratio 24, Glucose Level 38*L, Calcium Level 8.5, Corrected Calcium 9.2, Total Bilirubin 0.5, Aspartate Amino Transf (AST/SGOT) 26, Alanine Aminotransferase (ALT/SGPT) 11, Alkaline Phosphatase 36L, Total Protein 6.0L, Albumin 3.1L 03/15/20 06:26: Glucometer 131H 03/15/20 11:46: Glucometer 58*L Assessment/Plan Assessment/Plan Assessment/Plan CHF exacerbation Acute on chronic renal failure HTN CAD Anemia - down to 8.9 from 10.3 yesterday Diabetes Recurrent UTI's DJD PAD Carotid artery stenosis Incontinence GERD/ulcers Shingles EGD on 02/23/20 showed acute and chronic gastritis, negative for H pylori. GE junction showed mild reflux esophagitis without metaplastic change. Pt had a bowel movement this morning that was loose and black, but FOBT was not obtained; awaiting results of FOBT to determine further w/u Continue to monitor labs, VS Continue PPI Clinical Quality Measures DVT/VTE Risk/Contraindication: Risk Factor Score Per Nursin RFS Level Per Nursing on Admit: 4+=Very High MARYSE UGARTE DO 03/15/20 1800: History of Present Illness History of Present Illness History of Present Illness Consult requested by Dr. Bhakta for GI bleed. Patient is an 84-year-old female who states she has been having increased shortness of breath and lower extremity edema. Patient states that this is worsened over the last 2 days. Nothing is really made her breathing better any activity has made a little bit worse. Patient states she has been having black stools for approximately 2 days. Nothing seems to make it better nothing seems to make it worse. She thinks she is taking her medication for her stomach. She is having some stomach discomfort in the epigastric area but this is what her typical pain is for. Patient states that she recently was started on iron approximately [address] Johnson. She had a recent EGD which biopsies demonstrated active gastritis and reflux esophagitis. Allergies and Home Medications Allergies Coded Allergies: sertraline (Verified Allergy, Severe, CANNOT BREATHE, 03/14/17) Cephalosporins (Unverified Allergy, Mild, 03/14/17) Iodinated Contrast Media (Unverified Allergy, Mild, 03/14/17) Penicillins (Unverified Allergy, Mild, 03/14/17) Shellfish (Unverified Allergy, Mild, 03/14/17) atorvastatin (Unverified Allergy, Mild, 03/14/17) clarithromycin (Unverified Allergy, Mild, 03/14/17) codeine (Unverified Allergy, Mild, PT HAS RECEIVED HYDROMORPHONE IN THE PAST, 03/14/17) diltiazem (Unverified Allergy, Mild, 03/14/17) glucagon (Unverified Allergy, Mild, 03/14/17) lisinopril (Unverified Allergy, Mild, 03/14/17) morphine (Unverified Allergy, Mild, PT HAS RECEIVED HYDROMORPHONE IN THE PAST, 03/14/17) nifedipine (Unverified Allergy, Mild, 03/14/17) paroxetine (Unverified Allergy, Mild, 03/14/17) sulfamethoxazole (Unverified Allergy, Mild, 03/14/17) acetaminophen (Verified Allergy, Unknown, 03/14/17) benzocaine (Verified Allergy, Unknown, methemoglobinemia, 05/14/18) latex (Verified Allergy, Unknown, 03/14/17) meperidine (Verified Allergy, Unknown, PATIENT HAS RECEIVED FENTANYL IN THE PAST, 03/14/17) metoprolol (Verified Allergy, Unknown, 02/17/20) propoxyphene (Verified Allergy, Unknown, 03/14/17) sulindac (Verified Allergy, Unknown, 03/14/17) tramadol (Verified Allergy, Unknown, 04/12/17) Uncoded Allergies: TAPE (Allergy, Unknown, CAN USE PAPER TAPE, 12/08/08) Home Medications Acetaminophen 325 Mg Capsule, 650 MG PO Q4H PRN for PAIN-MILD (1-4), (Reported) Bjiac-E-Jjglqyrzspkrq 150 Unit Tablet, 150 UNIT PO TID, (Reported) Amlodipine Besylate 10 Mg Tablet, 10 MG PO HS, (Reported) Aspirin 81 Mg Tab.chew, 81 MG PO DAILY, (Reported) Calcium Carbonate 200 Mg Tab.chew, 400 MG PO Q4H PRN for UPSET STOMACH, (Reported) Calcium Carbonate 200 Mg Tab.chew, 200 MG PO BIDAC, (Reported) Cetirizine HCl 10 Mg Tablet, 10 MG PO DAILY PRN for ALLERGY SYMPTOMS, (Reported) Cholecalciferol (Vitamin D3) 125 Mcg Tablet, 125 MCG PO DAILY, (Reported) Cholestyramine/Aspartame 4 Gm Powd.pack, 4 GM PO DAILY PRN for DIARRHEA, (Reported) MIX WITH 4OZ OF LIQUID Citalopram Hydrobromide 20 Mg Tablet, 20 MG PO BID, (Reported) Clopidogrel Bisulfate 75 Mg Tablet, 75 MG PO DAILY, (Reported) Dextran 70/Hypromellose 1 Each Droperette, 1 DROP OU TID, (Reported) Diclofenac Sodium 100 Gm Gel..gram., 1 APPLIC TOP QID PRN for PAIN-BREAKTHROUGH, (Reported) APPLY TO AFFECTED JOINTS/TISSUE Doxazosin Mesylate 2 Mg Tablet, 2 MG PO BID, (Reported) Ezetimibe 10 Mg Tablet, 10 MG PO DAILY, (Reported) Fenofibrate Nanocrystallized 145 Mg Tablet, 145 MG PO DAILY, (Reported) Ferrous Sulfate 325 Mg Tablet, 325 MG PO DAILY, (Reported) Fluorouracil 40 Gm Cr, 1 APPLIC TP BID PRN for SKIN CANCER, (Reported) APPLY TO AFFECTED SKIN ON FACE FOR 10 DAYS NEEDED Fluticasone Propionate 9.9 Ml Hoffman.susp, 1 SPRAY NSEACH DAILY PRN for ALLERGY SYMPTOMS, (Reported) Furosemide 20 Mg Tablet, 20 MG PO SAT,,SAT, (Reported) Gabapentin 300 Mg Capsule, 300 MG PO TID, (Reported) Glipizide 5 Mg Tablet, 2.5 MG PO BID, (Reported) TAKES OF A 5MG TAB Hypromellose 10 Gm Gel..gram., 1 DROPS OU HS, (Reported) Isosorbide Mononitrate 60 Mg Tab, 60 MG PO DAILY, (Reported) Lactobacillus Acidophilus 1 Each Capsule, 1 EACH PO DAILY, (Reported) Levothyroxine Sodium 125 Mcg Tablet, 125 MCG PO DAILY, (Reported) Magnesium Oxide 250 Mg Tablet, 250 MG PO DAILY, (Reported) Meclizine HCl 25 Mg Tablet, 25 MG PO DAILY PRN for DIZZINESS, (Reported) Metoprolol Succinate 100 Mg Tab.er.24h, 100 MG PO DAILY, (Reported) FOR SBP <100 OR PULSE <55 Nitroglycerin 0.4 Mg Tab.subl, 0.4 MG SL UD PRN for CHEST PAIN (ANGINA), (Reported) Nystatin 15 Gm Cream..g., 1 APPLIC TOP QID PRN for YEAST, (Reported) APPLY UNDER THE BREAST/CODY AREA Ondansetron HCl 4 Mg Tablet, 4 MG PO TID PRN for NAUSEA/VOMITING-1ST LINE, (Reported) Oxycodone HCl/Acetaminophen 1 Each Tablet, 1-2 EA PO Q4H PRN for PAIN-MODERATE (5-7), (Reported) Pantoprazole Sodium 40 Mg Tablet.dr, 40 MG PO DAILY, (Reported) Phenazopyridine HCl 100 Mg Tablet, 100-200 MG PO TID PRN for BLADDER PAIN, (Reported) Polyethylene Glycol 3350 17 Gm Powd.pack, 17 GM PO DAILY PRN for CONSTIPATION- 1ST LINE, (Reported) Pravastatin Sodium 10 Mg Tablet, 10 MG PO Q48H, (Reported) TAKES AT 2000 Sodium Chloride 30 Ml Hoffman, 1 SPRAY NSEACH BID PRN for CONGESTION, (Reported) Sucralfate 1 Gm Tablet, 1 GM PO QID, (Reported) MAKE INTO A SLURRY WITH A SMALL AMOUNT OF WATER Trimethoprim 100 Mg Tablet, 100 MG PO HS, (Reported) Patient Home Medication List Home Medication List Reviewed: Yes Past Xkqehrb-Zutcvk-Epwbfz Hx Reviewed Nursing Assessment Reviewed/Agree w Nursing PMH: Yes Family Medical History Significant Family History: No Pertinent Family Hx, Heart Disease, Diabetes Family Medial History: Arthritis G8 BROTHER G8 SISTER Cardiovascular disease 19 MOTHER Completed stroke G8 BROTHER G8 SISTER Congenital disease Dementia G8 SISTER Diabetes mellitus G8 BROTHER Hypertension 19 FATHER 19 MOTHER G8 BROTHER G8 SISTER Respiratory disorder G8 SISTER Review of Systems-General Constitutional: dizziness, weakness EENTM: No blurred vision, No double vision Respiratory: orthopnea, short of breath Cardiovascular: No chest pain; edema (moderate edema to BLE) Gastrointestinal: abdominal pain, nausea Genitourinary: No discharge; other (farnsworth in place, denies dysuria) Musculoskeletal: No gout, No joint pain Skin: rash (upper back) Psychiatric/Neurological: Other (she says that she has hallucinations when she closes her eyes eg. sees people) All Other Systems Reviewed Negative Unless Noted: Yes (Negative excepted noted.) Physical Exam-General Problems Physical Exam General Appearance: WD/WN, no apparent distress HEENT: PERRL/EOMI Neck: non-tender, supple, normal inspection Respiratory: chest non-tender, no respiratory distress, no accessory muscle use Cardiovascular: regular rate, rhythm, no JVD, other (moderate edema to BLE) Gastrointestinal: soft, tenderness (mild tenderness to L and R abd where she has reducible hernias) Rectal: deferred Back: normal inspection (except shingles appearing rash upper back), no CVA tenderness Extremities: normal range of motion, normal inspection Neurologic/Psychiatric: no motor/sensory deficits, alert, normal mood/affect, oriented x 3 Skin: normal color, warm/dry Lymphatic: no adenopathy Assessment/Plan Assessment/Plan Assessment/Plan CHF exacerbation Acute on chronic renal failure HTN CAD Anemia - down to 8.9 from 10.3 yesterday started IRON earlier in week Diabetes Recurrent UTI's DJD PAD Carotid artery stenosis Incontinence GERD/ulcers Shingles EGD on 02/23/20 showed acute and chronic gastritis, negative for H pylori. GE junction showed mild reflux esophagitis without metaplasia. Pt had a bowel movement this morning that was loose and black, did recently start iron as well which could be cause Continue to monitor labs transfuse prn prbc Continue PPI/carafate Supervisory-Addendum Brief Verification & Attestation Participated in pt care: history, MDM, physical Personally performed: exam, history, MDM, supervision of care Care discussed with: Medical Student Procedures: n/a Results interpretation: Verified all documentation Verification and Attestation of Medical Student E/M Service A medical student performed and documented this service in my presence. I reviewed and verified all information documented by the medical student and made modifications to such information, when appropriate. I personally performed the physical exam and medical decision making. Maryse Ugarte, Mar 15, 2020,18:05 MARIELY GRIJALVA MED STUDENT Mar 15, 2020 11:58 MARYSE UGARTE DO Mar 15, 2020 18:00
[2020-03-15 12:00] VITALS: BP 159/69
--- NOTE | 2020-03-15 12:10 | NUR ---
Bedside glucose 58. Patient denies any symptoms of hypoglycemia at this time. Patient given soda and crackers with peanut butter. Tolerated well. Will continue to monitor.
--- NOTE | 2020-03-15 14:01 | NUR ---
RD ASSESSMENT PMHx: CHF; CKD(III); HTN; CAD; DM; PT INTERACTION: Pt was awake and pleasant during nutrition assessment. Pt states current appetite is not good, and she just has days where she doesn't want to eat. Note avg PO intake 25% x3meal, per chart review. Pt states following a regular diet at home, and has some issues with swallowing food. Pt states recent issues with nausea, vomiting, and diarrhea. Note last BM was 03/15, and pt not currently on bowel regimen per chart review. Pt states recent wt changes as "going up and down." Note recent 25# wt gain x3w, per chart review. Pt states current DM management is good at home. Note unable to determine recent HbA1c, per chart review. ABNORMAL NUTRITION-RELATED LAB VALUES LOW: glu 38; alkphos 36; Pro 6.0; alb 3.1; HIGH: BUN 64; cr 2.65; Est. kcal needs: 1197-2788 kcal | 15-18 kcal/kg Est. Pro needs: 71-89 g Pro | 0.8-1.0 g Pro/kg PES STATEMENT: Inadequate oral intake (NI-2.1) related to loss of appetite, nausea, vomiting, and diarrhea, as evidenced by pt interview, and avg PO intake 25% x3meal. INTERVENTION: Continue with current diet order of CHO 75g/m 0snack diet, with modifier of 2g Na restriction. Add Glucerna (vary) to meals TID, for increased kcal intake. Provides 220 kcal and 10 g Pro per serving. Offered diet education on DM management, but pt declined. Will attempt to offer again prior to discharge. Will continue to follow and reassess as pt needs, intake, and status change. Dipika BRAY, MS RD LD [phone] cell
[2020-03-15 16:00] VITALS: BP 132/57
[2020-03-15] MEDS: SUCRALFATE 1 GM (CARAFATE) TAB PO SCH ×2 (17:49→21:11)
[2020-03-15 20:00] VITALS: BP 147/73
[2020-03-15] MEDS: PANTOPRAZOLE 40 MG (PROTONIX) TAB PO SCH (21:11)
[2020-03-16] VITALS (7 sets, daily range): BP systolic 152–189; BP diastolic 62–81
[2020-03-16] MEDS: RT-ALBUTEROL/IPRATROPIUM 3 ML (DUONEB) VIAL INH SCH ×4 (03:24→20:13)
[2020-03-16] MEDS: FUROSEMIDE 40 MG/4 ML INJ (LASIX) IV SCH (05:56)
[2020-03-16] MEDS: KCL 20 MEQ TAB (K-DUR) PO SCH (05:56)
[2020-03-16] MEDS: CATHETER FLUSH 10 ML SYR IV SCH ×3 (05:57→22:15)
--- NOTE | 2020-03-16 07:32 | Progress Note - Surgery ---
MARIELY GRIJALVA MED STUDENT 03/16/20 0732: Subjective Date Seen by a Provider: Mar 16, 2020 Time Seen by a Provider: 06:25 Subjective/Events-last exam Pt seen and examined. Resting in bed, NAD. She says that she woke up in the middle of the night with chest pain in the epigastric area, and continues to have residual sensation of something being stuck retrosternally. Currently says that the pain has improved to 1/10. She had "multiple" loose BM's yesterday which she said was black in color. Review of Systems General: No Chills HEENT: No Head Aches Pulmonary: No Dyspnea Cardiovascular: Chest Pain Gastrointestinal: Abdominal Pain (tenderness to R and L abd hernias and epigastric); No: Nausea, Vomiting Genitourinary: No Dysuria Neurological: No: Weakness Objective Exam Vital Signs Date Time Temp Pulse Resp B/P (MAP) Pulse Ox O2 Delivery O2 Flow Rate FiO2 03/16/20 04:38 36.4 77 18 152/77 (102) 96 Nasal Cannula 3.00 03/16/20 03:24 96 Nasal Cannula 2.00 03/16/20 01:00 115 03/16/20 00:32 37.0 78 18 156/62 (93) 91 Nasal Cannula 3.00 03/15/20 20:22 74 03/15/20 20:00 37.4 73 18 147/73 (97) 96 Nasal Cannula 3.00 03/15/20 20:00 Nasal Cannula 2.00 03/15/20 19:10 96 Nasal Cannula 3.00 03/15/20 19:00 80 03/15/20 16:00 37.6 85 18 132/57 (82) 94 Nasal Cannula 3.00 03/15/20 15:51 90 Nasal Cannula 3.00 03/15/20 12:29 72 03/15/20 12:00 37.2 75 20 159/69 (99) 90 Nasal Cannula 3.00 03/15/20 11:08 92 Nasal Cannula 3.00 03/15/20 08:00 36.7 67 16 158/71 (100) 92 Nasal Cannula 3.00 03/15/20 08:00 Nasal Cannula 2.00 I & O 03/16/20 07:00 Intake Total 1820 ml Output Total 1425 ml Balance 395 ml Capillary Refill : Less Than 3 Seconds General Appearance: No Apparent Distress, WD/WN, Chronically ill, Obese HEENT: PERRL/EOMI Neck: Normal Inspection, Non Tender, Supple Respiratory: Lungs Clear, Normal Breath Sounds, No Accessory Muscle Use, No Respiratory Distress Cardiovascular: Regular Rate, Rhythm, No JVD, Normal Peripheral Pulses, Systolic Murmur Gastrointestinal: normal bowel sounds, soft, tenderness (mild tenderness to L and R abd where she has reducible hernias, and epigastric) Extremity: Normal Inspection, No Calf Tenderness, Other (bilateral LE edema) Neurologic/Psychiatric: Alert, Oriented x3, No Motor/Sensory Deficits, Normal Mood/Affect Skin: Normal Color, Warm/Dry Lymphatic: No Adenopathy Results Lab Laboratory Tests 03/15/20 11:46: Glucometer 58*L 03/15/20 17:09: Glucometer 81 03/15/20 18:20: Stool Occult Blood Immunoassay POSITIVEH 03/15/20 20:32: Glucometer 113H 03/16/20 05:25: Glucometer 96 Assessment/Plan Assessment/Plan Assessment/Plan CHF exacerbation Acute on chronic renal failure HTN CAD Anemia - Hgb 8.9 yesterday, no results from today Diabetes Recurrent UTI's DJD PAD Carotid artery stenosis Incontinence GERD/ulcers Shingles EGD on 02/23/20 showed acute and chronic gastritis, negative for H pylori. GE junction showed mild reflux esophagitis without metaplasia. Pt had a bowel movement this morning that was loose and black, Occult blood test resulted positive Consider upper/lower endoscopy to determine if active bleeding Continue to monitor labs transfuse prn prbc Continue PPI/carafate Clinical Quality Measures DVT/VTE Risk/Contraindication: Risk Factor Score Per Nursin RFS Level Per Nursing on Admit: 4+=Very High MARYSE AGUILLON DO 03/16/20 1256: Subjective Subjective/Events-last exam Pain in epigastric area better. Patient hgb stable. Feels sensation in throat of reflux. Multiple stools yesterday. Denies n/v fever sweats chills shortness of breath or chest pain at this time. Objective Exam General Appearance: No Apparent Distress, Chronically ill HEENT: PERRL/EOMI, Normal ENT Inspection Neck: Normal Inspection, Non Tender, Supple Respiratory: Chest Non Tender, No Accessory Muscle Use, No Respiratory Distress Cardiovascular: Regular Rate, Rhythm, No JVD Gastrointestinal: normal bowel sounds, soft, tenderness ( hernias incisional reducible) Extremity: Normal Inspection, No Calf Tenderness Neurologic/Psychiatric: Alert, Oriented x3, No Motor/Sensory Deficits, Normal Mood/Affect Skin: Normal Color, Warm/Dry Lymphatic: No Adenopathy Assessment/Plan Assessment/Plan Assessment/Plan CHF exacerbation Acute on chronic renal failure HTN CAD Anemia - Hgb 8.9 yesterday today increased Diabetes Recurrent UTI's DJD PAD Carotid artery stenosis Incontinence Gastrtitis GERD/ulcers Shingles EGD on 02/23/20 showed acute and chronic gastritis, negative for H pylori. GE junction showed mild reflux esophagitis without metaplasia. Pt had a bowel movement this morning that was loose and black, Occult blood test resulted positive Continue to monitor labs transfuse prn prbc Continue PPI/carafate If had significant change in hgb would consider repeating endoscopy not needed at this time. Supervisory-Addendum Brief Verification & Attestation Participated in pt care: history, MDM, physical Personally performed: exam, history, MDM, supervision of care Care discussed with: Medical Student Procedures: n/a Results interpretation: Verified all documentation Verification and Attestation of Medical Student E/M Service A medical student performed and documented this service in my presence. I reviewed and verified all information documented by the medical student and made modifications to such information, when appropriate. I personally performed the physical exam and medical decision making. Maryse Aguillon, Mar 16, 2020,13:09 MARIELY GRIJALVA MED STUDENT Mar 16, 2020 07:32 MARYSE AGUILLON DO Mar 16, 2020 12:56
--- NOTE | 2020-03-16 07:59 | Progress Note ---
Subjective Subjective Date Seen by Provider: Mar 16, 2020 Time Seen by Provider: 07:45 Pt states her breathing feels slightly improved today, but still had black diarrhea yesterday, no BM's yet today. Also noticed some bright red blood in her stool, says she has a history of hemorrhoids. Heme occult was positive yes terday. Having back pain where her shingles is because she is laying on it, but feels that overall it is improving. Also complains of her food getting stuck in her throat, particularly the toast and sausage that she got for breakfast. States this is chronic for her, but worse today. Dr. Ugarte saw pt yesterday and started her on Protonix and Carafate. His EGD on 02/22 showed reflux esophagitis and chronic gastritis. Review of Systems General: No Chills HEENT: No Head Aches Pulmonary: No Cough Cardiovascular: Chest Pain Gastrointestinal: Abdominal Pain (tenderness to R and L abd hernias and epigastric); No: Nausea, Vomiting Genitourinary: No Dysuria Neurological: No: Confusion All Other Systems Reviewed All Other Systems Reviewed: Yes (Negative excepted noted.) Objective Exam Vital Signs Vital Signs - First Documented 03/14/20 03/14/20 03/14/20 12:10 15:30 16:45 Temp 35.0 Pulse 63 Resp 18 B/P (MAP) 143/69 Pulse Ox 94 O2 Delivery Room Air O2 Flow Rate 2.00 FiO2 2 Capillary Refill : Less Than 3 Seconds General Appearance: No Apparent Distress, WD/WN, Obese Eyes: Bilateral Eye Normal Inspection, Bilateral Eye PERRL, Bilateral Eye EOMI HEENT: PERRL/EOMI Neck: Normal Inspection, Supple Respiratory: Chest Non Tender, No Accessory Muscle Use, No Respiratory Distress, Crackles (bilateral bases, unchanged from yesterday) Cardiovascular: Regular Rate, Rhythm, Normal Peripheral Pulses, Systolic Murmur Gastrointestinal: Soft, Tenderness (diffuse) Rectal: Deferred Back: Other (dry, erythematous rash to left upper back) Extremity: No Calf Tenderness, Other (bilateral LE edema, appears unchanged from yesterday) Neurologic/Psychiatric: Alert, Oriented x3, No Motor/Sensory Deficits, Normal Mood/Affect Skin: Normal Color, Warm/Dry Lymphatic: No Adenopathy Results Lab Laboratory Tests 03/15/20 11:46: Glucometer 58*L 03/15/20 17:09: Glucometer 81 03/15/20 18:20: Stool Occult Blood Immunoassay POSITIVEH 03/15/20 20:32: Glucometer 113H 03/16/20 05:25: Glucometer 96 Assessment/Plan Assessment/Plan Admission Dx CHF exacerbation melena chronic kidney disease anemia shingles dysphagia CHF exacerbation -Lasix 40 mg, supplement potassium -consult Dr. Maki duenas -Dr. Ugarte consulted, he started Protonix and Carafate -guaiac positive chronic kidney disease -monitor creatinine -caution with Lasix dosing anemia -monitor labs shingles -pain control as needed dysphagia -speech therapy consult Admission Dx CHF exacerbation melena chronic kidney disease anemia shingles CHF exacerbation -Lasix 40 mg, supplement potassium -consult Dr. Gambino, plans to do 2D echo today melena -consult Dr. Ugarte -guaiac test stool chronic kidney disease -monitor creatinine -caution with Lasix dosing anemia -monitor labs shingles -pain control as needed Clinical Quality Measures Admission Status Admission Dx CHF exacerbation melena chronic kidney disease anemia shingles CHF exacerbation -Lasix 40 mg, supplement potassium -consult Dr. Gambino, plans to do 2D echo today melena -consult Dr. Ugarte -sheriaiac test stool chronic kidney disease -monitor creatinine -caution with Lasix dosing anemia -monitor labs shingles -pain control as needed DVT/VTE Risk/Contraindication: Risk Factor Score Per Nursin RFS Level Per Nursing on Admit: 4+=Very High Supervisory-Addendum Brief Verification & Attestation Participated in pt care: history, MDM, physical Personally performed: exam, history, MDM, supervision of care Care discussed with: Medical Student Procedures: n/a Results interpretation: Verified all documentation ACUTE ON CHRONIC CONGESTIVE HEART FAILURE HYPERTENSION ANEMIA GERD CHRONIC UTI CKD SHINGLES CONGESTIVE HEART FAILURE - CONTINUE WITH IV LASIX, 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 ANEMIA - CHECK LABS IN AM, MONITOR GI TRACK - CHECK GUIAC - CONSULT SURGERY FOR POSSIBLE UPPER GI BLEED GERD - - CONTINUE WITH PROTONIX AND CARAFATE - CONSULT DR. UGARTE CHRONIC UTI - RESUMED TRIMETHOPRIM. CKD - ACUTE ON CHRONIC LASIX FOR HEART FAILURE, MONITOR SERIAL LABS. SHINGLES - STOP GABAPENTIN DUE TO SYMPTOMS OF TREMORS. CXR REPORTS INFILTRATES, BUT WHITE COUNT IS NORMAL AND PT DOES NOT HAVE ANY SYMPTOMS OF PNEUMONIA - WITH HER MULTIPLE DRUG ALLERGIES, I WILL NOT START HER ON AN ANTIBIOTIC UNTIL OR UNLESS SHE STARTS TO HAVE WORSENING SYMPTOMS. DVT PROPHYLAXIS WITH SCD'S CANNOT USE LOVENOX FOR CONCERN OF GI BLEED ELLYN VILLALOBOS MED STUDENT Mar 16, 2020 07:59 HIRAL WOLF MD Mar 16, 2020 20:36
[2020-03-16] MEDS ORDERED: MECLIZINE 25 MG (ANTIVERT) TAB PO PRN (08:30)
[2020-03-16] MEDS ORDERED: NITROGLYCERIN 0.4 MG SL TABS BTL 25'S SL PRN (08:30)
[2020-03-16 08:51] LABS: HEMOGLOBIN 9.6 g/dL (11.5-16.0); MEAN PLATELET VOLUME 9.3 fL (9.0-12.2); WHITE BLOOD COUNT 5.6 10^3/uL (4.3-11.0)
[2020-03-16 09:09] LABS: CALCIUM 8.3 MG/DL (8.5-10.1); CREATININE SERUM 2.01 MG/DL (0.60-1.30); POTASSIUM 3.4 MMOL/L (3.6-5.0)
[2020-03-16] MEDS ORDERED: ACETAMINOPHEN 325 MG TABLET PO PRN (09:15)
[2020-03-16] MEDS: SUCRALFATE 1 GM (CARAFATE) TAB PO SCH ×4 (09:26→20:49)
[2020-03-16] MEDS: PANTOPRAZOLE 40 MG (PROTONIX) TAB PO SCH ×2 (09:26→20:48)
[2020-03-16] MEDS: meTOproloL SUCCINATE 50 MG (TOPROL XL) TAB PO SCH (09:26)
[2020-03-16] MEDS: LEVOTHYROXINE 125 MCG (LEVOTHROID) TABLET PO SCH (09:27)
[2020-03-16] MEDS: doxAzosin 2 MG (CARDURA) TAB PO SCH ×2 (09:28→22:15)
[2020-03-16] MEDS: ALPHA D GALACTOSIDASE 150 UNIT PO SCH ×3 (09:29→21:00)
--- NOTE | 2020-03-16 10:03 | NUR ---
Clarified with Dr. Bhakta that pt is to be in contact isolation not airborne due to ESBL in urine. Order revised.
--- NOTE | 2020-03-16 10:17 | Cardiology Progress Note ---
Subjective Date Seen by Provider: Mar 16, 2020 Time Seen by Provider: 10:12 Subjective/Events-last exam Patient sitting up in bed, complaining of some dysphagia. Denies any chest pain or dyspnea. Review of Systems General: No Chills, No Night Sweats; Fatigue, Malaise; No Appetite, No Other HEENT: No Head Aches, No Visual Changes, No Eye Pain, No Ear Pain, No Dysphas ia, No Sinus Congestion, No Post Nasal Drip, No Sore Throat, No Other Pulmonary: Dyspnea; No Cough, No Pleuritic Chest Pain, No Other Cardiovascular: No: Chest Pain, Palpitations, Orthopnea, Paroxysmal Noc. Dyspnea, Edema, Lt Headedness, Other Objective-Cardiology Exam Last Set of Vital Signs Vital Signs 03/14/20 03/16/20 03/16/20 16:45 08:00 08:50 Temp 37.5 Pulse 92 Resp 20 B/P (MAP) 163/70 (101) Pulse Ox 93 O2 Delivery Nasal Cannula O2 Flow Rate 2.00 FiO2 2 Capillary Refill : Less Than 3 Seconds I&O Intake and Output 03/15/20 23:59 Intake Total 1670 ml Output Total 1400 ml Balance 270 ml Intake Oral 1670 ml Output Urine Total 1400 ml # Bowel Movements 7 General: Alert, Oriented X3, Cooperative HEENT: Atraumatic, PERRLA Neck: Supple, No JVD, No Thyromegaly Lungs: Other (bilat rhonchi) Heart: Regular Rate, Normal S1, Normal S2, Other (systolic murmur) Abdomen: Normal Bowel Sounds, Soft, No Tenderness Extremities: Other (+1 edema BLE) Skin: No Rashes, No Significant Lesion Neuro: Normal Speech, Cranial Nerves 3-12 NL Psych/Mental Status: Mental Status NL, Mood NL Results Lab Laboratory Tests 03/16/20 08:41 A/P-Cardiology Admission Diagnosis Congestive heart failure, acute on chronic left ventricular diastolic dysfunction nonischemic cardiomyopathy Coronary artery disease Hypertension Hyperlipidemia Assessment/Plan Congestive heart failure, acute left ventricular diastolic dysfunction, last echo showed normal left ventricular systolic function EF 55-65 percent, grade 2 diastolic dysfunction, left atrial dilatation. To moderate aortic stenosis, valve area 1.2-1.6 cm, started on low-dose diuretics, continue to monitor closely Orthostatic dizziness, generalized weakness, patient is having severe diarrhea a nd worsening anemia. Might not tolerate aggressive diuresis at this point. Continue to monitor. Diarrhea, reporting dark stool, questionable GI bleed, stool for occult blood p ositive. Underwent EGD last month showing gastritis and esophagitis. On Carafate and Protonix, I will evaluate C. difficile Acute on chronic renal insufficiency, chronic kidney disease stage III with diabetic nephropathy. Responding slowly to diuretic, cautious diuresis while monitoring renal function Hypertension, difficult to control. Intolerant to multiple medications, conitnue to monitor blood pressure at this time. Patient has been having orthostatic hypotension and dizziness. Coronary artery disease, had a cardiac catheterization done in August [address] Swift showing diffuse moderate coronary artery disease involving all her coronary system with 50 percent stenosis nonobstructive disease. Anemia, monitor H&H Diabetes mellitus, followed and managed by primary care physician History of recurrent UTI with multidrug resistance Degenerative joint disease History of intolerance to statin with intolerant to angiotensin receptor neeru Peripheral arterial disease bilateral peripheral angiography done with Dr. Monahan showing significant obstructive disease Mild bilateral carotid stenosis, continue to monitor as outpatient. Chronic pedal edema with history of chronic venous insufficiency History of urinary incontinence Patient was seen and evaluated with Ethel, examination performed, management plan was discussed, agree with the current scribed note, I made few changes to the note using Italic font Patient was seen and evaluated, still having diarrhea, having orthostatic dizziness and generalized fatigue and loss of energy Echocardiogram showed normal left ventricular function, mild to moderate aortic stenosis Started on low-dose diuretics. Monitor tolerance and response Clinical Quality Measures DVT/VTE Risk/Contraindication: Risk Factor Score Per Nursin RFS Level Per Nursing on Admit: 4+=Very High ETHEL MORALES Mar 16, 2020 10:17 KATHERYN DIANA MD Mar 16, 2020 12:59
--- NOTE | 2020-03-16 13:58 | ST Dysphagia Evaluation ---
Speech Evaluation-General Medical Diagnosis CHF Exacerbation Onset Date: Mar 14, 2020 Therapy Diagnosis Therapy Diagnosis: Oropharyngeal Dysphagia Precautions Precautions: Aspiration Referral Referring Physician: Dr. Bhakta Medical History Pertinent Medical History: DM Reviewed History: Yes Social History Home: Assisted Living Current Living Status: Speech PLF/Current-Dysphagia Prior Level of Function Patient lives in an [facility] where she receives assistance with her needs as needed. Subjective Patient was compliant with the Bedside Dysphagia Evaluation. Oral Motor Skills Denture Type: Full- Upper & Lower Current Food Consistancy: Regular, Thin Liquids Ability to Follow Directions: Good Oral Expression Ability: No Impairment Voice Voice Phonatory-Based Quality: Breathy, Tremor Voice Pitch: Normal Voice Loudness: Mildly Soft/Quiet Face Facial Symmetry: Symmetrical Oral-Facial Assessment Oral-Facial Dentition: Normal Lingual Protrusion: Normal Lingual ROM: Normal Lingual Strength: Normal Pharynx Velopharyngeal Move.: Normal Volitional Dry Swallow: Yes Dysphagia Evaluation Consistencies Presented: Thin Liquid, Mechanical Soft, Pureed Patient c/o food stuck in the esophageal area, no regular presentation Oral phase is within normal range of function for all consistencies presented, Pharyngeal phase is within normal range of function for presented consistencies. Dietary Recommendations: Mechanical Soft Liquid Recommendations: Thin Swallowing Precautions: Alternate Liquids/Solids, Double Swallow, Liquids from Straw, Small Bites and Sips, Sitting Upright 90 Degrees, Sitting 90 Degrees 30 Post Intake Dysphagia Evaluation Summary Patient is a pleasant 84 y/o female who was admitted to the hospital due to exacerbation of CHF. She was referred for a BDE by Dr. Bhakta. Patient c/o food/liquid getting stuck in the esophageal area. Patient has had an EGD completed by Dr. Aguillon with diagnosis of reflux esophagitis and chronic gastritis. Patient was presented thin liquids at 1/2 tsp x3 and small sips via straw x2 without oral or pharyngeal phases affected. She was also given 1/2 tsp of puree and mechanical soft with c/o "it stuck" while rubbing the esophageal area. She was able to take a couple of more sips to try to clear. She stated she felt like it was backing up with each swallow. Patient is recommended for a downgrade to Dysphagia II diet with thin liquids. This information was provided to her nurse, Hermann and written on the white board in the patient's room. Patient will receive skilled ST services for dysphagia therapy. Barriers to Learning None identified Speech Short Term Goals Short Term Goals Short Term Goals 1) Patient will tolerate least restrictive diet level without s/s of aspiration at 90% or greater. 2) Patient will utilize compensatory strategies as trained at 90% or greater with minimal cues. Speech [employer] Goals Retirement Goals Patient will maintain adequate nutrition/hydration via safe effective swallow. Speech-Plan Patient/Family Goals Patient/Family Goals: Patient plans on returning to her [facility] with diet modifications for safest oral intake. Treatment Plan Speech Therapy Treatment Plan: Continue Plan of Care Treatment Duration: Mar 21, 2020 Frequency: 3 times per week Estimated Hrs Per Day: .25 hour per day Rehab Potential: Fair Barriers to Learning: None identified Pt/Family Agrees to Plan: Yes Safety Risks/Education Teaching Recipient: Patient Teaching Methods: Demonstration, Discussion Response to Teaching: Verbalize Understanding, Return Demonstration Education Topics Provided: Safety of oral intake, diet level Discharge Recommendations Assisted Living Time Speech Therapy Time In: 00:45 Speech Therapy Time Out: 09:05 Total Billed Time: 20 Billed Treatment Time 1, ADDISEVS, DYST AUBREY Kam Mar 16, 2020 13:57
[2020-03-16] MEDS: ARTIFICAL TEARS 0.4 ML UNIT DOSE (REFRESH PLUS) OU SCH ×3 (14:45→21:00)
--- NOTE | 2020-03-16 16:09 | Diagnostic Imaging Report ---
INDICATION: Cough PA and lateral chest There are bilateral perihilar infiltrates. These appear similar to 03/14/2020. There are no effusions. IMPRESSION: Bilateral perihilar infiltrates stable over the past 2 days. Dictated by: Dictated on workstation # [id number]
--- NOTE | 2020-03-16 16:11 | NUR ---
CM/SS: [facility] WILL NEED TO REASSESS PT TO DETERMINE SHE WILL BE ABLE TO RETURN TO THE [facility] LEVEL OF CARE. This worker will follow up to ensure pt is assessed, prior to returning to facility.
[2020-03-16] MEDS: oxyCODONE/APAP 10/325MG (PERCOCET 10) TABLET PO PRN (18:59)
[2020-03-16] MEDS ORDERED: ISOSORBIDE MONONITRATE 30 MG (IMDUR) TAB PO ONE ×2 (20:45→21:02)
[2020-03-16] MEDS: amLODIPine 5 MG (NORVASC) TAB PO SCH (20:48)
[2020-03-16] MEDS: TRIMETHOPRIM 100 MG TAB (PROLOPRIM) PO SCH (20:48)
[2020-03-16] MEDS ORDERED: MELATONIN 10 MG TABLET ONE (22:24)
[2020-03-16] MEDS: MELATONIN 10 MG TABLET PO SCH (22:32)
[2020-03-17] VITALS (7 sets, daily range): BP systolic 134–167; BP diastolic 66–74
[2020-03-17] MEDS: RT-ALBUTEROL/IPRATROPIUM 3 ML (DUONEB) VIAL INH SCH ×2 (03:11→10:35)
[2020-03-17] MEDS: SUCRALFATE 1 GM (CARAFATE) TAB PO SCH ×4 (06:44→20:10)
[2020-03-17] MEDS: KCL 20 MEQ TAB (K-DUR) PO SCH (06:45)
[2020-03-17] MEDS: LEVOTHYROXINE 125 MCG (LEVOTHROID) TABLET PO SCH (06:45)
[2020-03-17] MEDS: FUROSEMIDE 40 MG/4 ML INJ (LASIX) IV SCH (06:45)
[2020-03-17] MEDS: CATHETER FLUSH 10 ML SYR IV SCH ×3 (06:45→20:12)
[2020-03-17] MEDS: DICLOFENAC 1% GEL 100 GM (VOLTAREN) TUBE TOP PRN ×2 (06:46→09:39)
[2020-03-17 06:48] LABS: HEMOGLOBIN 8.5 g/dL (11.5-16.0); MEAN PLATELET VOLUME 10.6 fL (9.0-12.2); WHITE BLOOD COUNT 6.3 10^3/uL (4.3-11.0)
[2020-03-17 07:15] LABS: ALBUMIN 2.9 GM/DL (3.2-4.5); BILIRUBIN,TOTAL 0.7 MG/DL (0.1-1.0); CALCIUM 8.2 MG/DL (8.5-10.1); CREATININE SERUM 1.71 MG/DL (0.60-1.30); POTASSIUM 3.4 MMOL/L (3.6-5.0); TOTAL PROTEIN 5.9 GM/DL (6.4-8.2)
--- NOTE | 2020-03-17 07:22 | Progress Note - Surgery ---
MARIELY GRIJALVA MED STUDENT 03/17/20 0722: Subjective Date Seen by a Provider: Mar 17, 2020 Time Seen by a Provider: 06:30 Subjective/Events-last exam Pt seen and examined. Pt was resting in bed, NAD. She complains of 10/10 pain to her upper back due to shingles and was offered some options for repositioning to take pressure off of the affected area. Continues to have sensation of something caught in her throat eg. from drinking water, but denies N/V. She says that she had more loose-black BM's yesterday and none today. She says that she had anothe r episode of chest pain early this morning that woke her up but has resolved since. Review of Systems General: No Chills HEENT: No Head Aches Pulmonary: No Dyspnea Cardiovascular: Chest Pain (intermittently complains of chest pain in the mornings); No: Palpitations Gastrointestinal: Abdominal Pain (epigastric, R and L ); No: Nausea, Vomiting Genitourinary: No Dysuria (farnsworth in place) Musculoskeletal: back pain (shingles to upper back) Objective Exam Vital Signs Date Time Temp Pulse Resp B/P (MAP) Pulse Ox O2 Delivery O2 Flow Rate FiO2 03/17/20 04:07 36.5 69 18 146/67 (93) 94 Nasal Cannula 4.00 03/17/20 03:11 90 Nasal Cannula 2.00 03/17/20 01:00 60 03/17/20 00:15 36.4 65 20 134/66 (88) 94 Nasal Cannula 4.00 03/16/20 20:30 92 Nasal Cannula 1.00 03/16/20 20:13 88 Nasal Cannula 1.00 03/16/20 20:00 36.9 73 18 165/67 (99) 93 Nasal Cannula 1.00 03/16/20 19:00 74 03/16/20 16:00 36.7 75 18 177/77 (110) 94 Nasal Cannula 2.00 03/16/20 15:37 90 Nasal Cannula 2.00 03/16/20 13:44 37.2 76 20 189/81 (117) 94 Nasal Cannula 3.00 03/16/20 12:43 75 03/16/20 12:00 37.2 76 20 189/81 (117) 94 Nasal Cannula 3.00 03/16/20 08:50 93 Nasal Cannula 2.00 03/16/20 08:35 93 Nasal Cannula 2.00 03/16/20 08:00 92 20 163/70 (101) 95 Nasal Cannula 3.00 03/16/20 08:00 37.5 I & O 03/17/20 07:00 Intake Total 2000 ml Output Total 2250 ml Balance -250 ml Capillary Refill : Less Than 3 Seconds General Appearance: No Apparent Distress, WD/WN, Obese HEENT: PERRL/EOMI Neck: Full Range of Motion, Normal Inspection, Non Tender, Supple Respiratory: Chest Non Tender, No Accessory Muscle Use, No Respiratory Distress, Crackles (bilateral bases, unchanged from yesterday) Cardiovascular: Regular Rate, Rhythm, No JVD, Normal Peripheral Pulses, Systolic Murmur Gastrointestinal: normal bowel sounds, soft, tenderness (mild tenderness to epigatric area, R and L abd incisional hernias, reducible) Extremity: No Calf Tenderness, Swelling (moderate edema to BLE) Neurologic/Psychiatric: Alert, Oriented x3, No Motor/Sensory Deficits, Normal Mood/Affect Skin: Normal Color, Warm/Dry Lymphatic: No Adenopathy Results Lab Laboratory Tests 03/16/20 08:41: White Blood Count 5.6, Red Blood Count 3.21L, Hemoglobin 9.6L, Hematocrit 31L, Mean Corpuscular Volume 96, Mean Corpuscular Hemoglobin 30, Mean Corpuscular Hemoglobin Concent 31L, Red Cell Distribution Width 17.1H, Platelet Count 197, Mean Platelet Volume 9.3, Sodium Level 140, Potassium Level 3.4L, Chloride Level 104, Carbon Dioxide Level 26, Anion Gap 10, Blood Urea Nitrogen 50H, Creatinine 2.01H, Estimat Glomerular Filtration Rate 24, BUN/Creatinine Ratio 25, Glucose Level 159H, Calcium Level 8.3L, Iron Level 18L, Total Iron Binding Capacity 339H , Unsaturated Iron Binding Capacity 321, Transferrin % Saturation 5L, Ferritin 117.7 03/16/20 11:10: Glucometer 135H 03/16/20 15:49: Glucometer 166H 03/16/20 20:12: Glucometer 161H 03/17/20 05:22: White Blood Count 6.3, Red Blood Count 2.89L, Hemoglobin 8.5L, Hematocrit 27L, Mean Corpuscular Volume 95, Mean Corpuscular Hemoglobin 29, Mean Corpuscular Hemoglobin Concent 31L, Red Cell Distribution Width 17.2H, Platelet Count 213, Mean Platelet Volume 10.6, Sodium Level 144, Potassium Level 3.4L, Chloride Level 106, Carbon Dioxide Level 29, Anion Gap 9, Blood Urea Nitrogen 43H, Creat inine 1.71H, Estimat Glomerular Filtration Rate 29, BUN/Creatinine Ratio 25, Glucose Level 115H, Calcium Level 8.2L, Corrected Calcium 9.1, Total Bilirubin 0.7, Aspartate Amino Transf (AST/SGOT) 24, Alanine Aminotransferase (ALT/SGPT) 15, Alkaline Phosphatase 34L, Total Protein 5.9L, Albumin 2.9L 03/17/20 06:20: Glucometer 126H Microbiology 03/16/20 C. difficile GDH Antigen & Toxins - Final, Complete Assessment/Plan Assessment/Plan Assessment/Plan CHF exacerbation Acute on chronic renal failure HTN CAD Anemia - Hgb 8.5, decreased from yesterday(9.6) Diabetes Recurrent UTI's DJD PAD Carotid artery stenosis Incontinence Gastrtitis GERD/ulcers Shingles EGD on 02/23/20 showed acute and chronic gastritis, negative for H pylori. GE junction showed mild reflux esophagitis without metaplasia. Pt had multiple BM's yesterday that were loose-black, Occult blood test resulted positive Continue to monitor labs transfuse prn prbc Continue PPI/carafate; If significant change in hgb, would consider repeating endoscopy, not needed at this time. Clinical Quality Measures DVT/VTE Risk/Contraindication: Risk Factor Score Per Nursin RFS Level Per Nursing on Admit: 4+=Very High MARYSE AGUILLON DO 03/17/202057: Subjective Subjective/Events-last exam Patient still with pain in the back area from the shingles. Patient states that she is having some difficulty with swallowing still. She is not having nausea or vomiting. She is not having any abdominal pain at this time. Hemoglobin 8.5. Denies fever sweats chills shortness of breath or chest pain. Objective Exam General Appearance: No Apparent Distress, Obese HEENT: PERRL/EOMI Neck: Normal Inspection, Non Tender, Supple Respiratory: Chest Non Tender, No Accessory Muscle Use, No Respiratory Distress Cardiovascular: Regular Rate, Rhythm, No JVD Gastrointestinal: normal bowel sounds, soft, tenderness (mild tenderness to epigatric area, R and L abd incisional hernias, reducible) Extremity: No Calf Tenderness, Swelling (edema to BLE) Neurologic/Psychiatric: Alert, Oriented x3, No Motor/Sensory Deficits, Normal Mood/Affect Skin: Normal Color, Warm/Dry Lymphatic: No Adenopathy Assessment/Plan Assessment/Plan Assessment/Plan CHF exacerbation Acute on chronic renal failure HTN CAD Anemia - Hgb 8.5, decreased from yesterday(9.6) Diabetes Recurrent UTI's DJD PAD Carotid artery stenosis Incontinence Gastrtitis GERD/ulcers Shingles EGD on 02/23/20 showed acute and chronic gastritis, negative for H pylori. GE junction showed mild reflux esophagitis without metaplasia. Pt had multiple BM's yesterday that were loose-black, Occult blood test resulted positive Continue to monitor labs transfuse prn prbc Continue PPI/carafate; If significant change in hgb, would consider repeating endoscopy, not needed at this time. Continue medical management. Supervisory-Addendum Brief Verification & Attestation Participated in pt care: history, MDM, physical Personally performed: exam, history, MDM, supervision of care Care discussed with: Medical Student Procedures: n/a Results interpretation: Verified all documentation Verification and Attestation of Medical Student E/M Service A medical student performed and documented this service in my presence. I reviewed and verified all information documented by the medical student and made modifications to such information, when appropriate. I personally performed the physical exam and medical decision making. Maryse Aguillon, Mar 17, 2020,20:58 MARIELY GRIJALVA MED STUDENT Mar 17, 2020 07:22 MARYSE AGUILLON DO Mar 17, 2020 20:58
--- NOTE | 2020-03-17 08:25 | Cardiology Progress Note ---
Subjective Date Seen by Provider: Mar 17, 2020 Time Seen by Provider: 08:20 Subjective/Events-last exam Patient is sitting up in bed, continues to c/o dysphagia. Objective-Cardiology Exam Last Set of Vital Signs Vital Signs 03/14/20 03/17/20 16:45 11:00 Temp 36.2 Pulse 70 Resp 16 B/P (MAP) 157/68 (97) Pulse Ox 97 O2 Delivery Nasal Cannula O2 Flow Rate 1.50 FiO2 2 Capillary Refill : Less Than 3 Seconds I&O Intake and Output 03/17/20 00:00 Intake Total 2050 ml Output Total 2300 ml Balance -250 ml Intake Oral 2050 ml Output Urine Total 2300 ml # Bowel Movements 5 General: Alert, Oriented X3, Cooperative HEENT: Atraumatic, PERRLA Neck: Supple, No JVD, No Thyromegaly Lungs: Other (bilat rhonchi) Heart: Regular Rate, Normal S1, Normal S2, Other (systolic murmur) Abdomen: Normal Bowel Sounds, Soft, No Tenderness Extremities: Other (+1 edema BLE) Skin: No Rashes, No Significant Lesion Neuro: Normal Speech, Cranial Nerves 3-12 NL Psych/Mental Status: Mental Status NL, Mood NL Results Lab Laboratory Tests 03/17/20 05:22 A/P-Cardiology Admission Diagnosis Congestive heart failure, acute on chronic left ventricular diastolic dysfunction nonischemic cardiomyopathy Coronary artery disease Hypertension Hyperlipidemia Assessment/Plan Congestive heart failure, acute left ventricular diastolic dysfunction, last echo showed normal left ventricular systolic function EF 55-65 percent, grade 2 diastolic dysfunction, left atrial dilatation. Moderate aortic stenosis, valve area 1.2-1.6 cm, compensated at this time, feeling better. Continue to Orthostatic dizziness, generalized weakness, patient is having severe diarrhea and worsening anemia. Might not tolerate aggressive diuresis at this point. Continue to monitor. Diarrhea, reporting dark stool, questionable GI bleed, stool for occult blood positive. Underwent EGD last month showing gastritis and esophagitis. On Carafate and Protonix, C. diff negative. Acute on chronic renal insufficiency, chronic kidney disease stage III with diabetic nephropathy. Responding slowly to diuretic, cautious diuresis while monitoring renal function Hypertension, difficult to control. Intolerant to multiple medications, conitnue to monitor blood pressure at this time. Patient has been having orthostatic hypotension and dizziness. Coronary artery disease, had a cardiac catheterization done in August [address] Swift showing diffuse moderate coronary artery disease involving all her coronary system with 50 percent stenosis nonobstructive disease. Anemia, monitor H&H Diabetes mellitus, followed and managed by primary care physician History of recurrent UTI with multidrug resistance Degenerative joint disease History of intolerance to statin with intolerant to angiotensin receptor neeru Peripheral arterial disease bilateral peripheral angiography done with Dr. Monahan showing significant obstructive disease Mild bilateral carotid stenosis, continue to monitor as outpatient. Chronic pedal edema with history of chronic venous insufficiency History of urinary incontinence Patient was seen and evaluated with Ethel, examination performed, management plan was discussed, agree with the current scribed note, I made few changes to the note using Italic font Patient was seen and evaluated, still having diarrhea, having orthostatic dizziness and generalized fatigue and loss of energy Echocardiogram showed normal left ventricular function, mild to moderate aortic stenosis continue to monitor, no changes recommended Clinical Quality Measures DVT/VTE Risk/Contraindication: Risk Factor Score Per Nursin RFS Level Per Nursing on Admit: 4+=Very High ETHEL MORALES Mar 17, 2020 08:25 KATHERYN DIANA MD Mar 17, 2020 12:48
[2020-03-17] MEDS ORDERED: HYOSCYAMINE 0.125 MG (LEVSIN) TAB PO NR (08:45)
--- NOTE | 2020-03-17 08:46 | Progress Note ---
Subjective Subjective Date Seen by Provider: Mar 17, 2020 Time Seen by Provider: 08:15 Pt had black diarrhea yesterday, but no BM's yet today. C. diff test initially appeared to be positive, but lab clarified that pt is negative and report was amended. Pt was evaluated by speech therapy yesterday and they recommended dysphagia II diet, but pt received eggs, guerrero, and a biscuit for breakfast this morning, which she had a hard time swallowing. Denies difficulty breathing, but still having swelling in her legs and some shingles pain. 2D echo yesterday showed grade 2 diastolic dysfunction and mitral and aortic stenosis. Labs today show creatinine of 1.71, Hgb 8.5, and potassium 3.4. Review of Systems General: No Chills HEENT: No Head Aches Pulmonary: No Dyspnea Cardiovascular: Edema; No: Palpitations Gastrointestinal: Diarrhea, Melena; No: Nausea, Vomiting Genitourinary: No Dysuria (farnsworth in place) Musculoskeletal: back pain (shingles to upper back) Neurological: No: Confusion All Other Systems Reviewed All Other Systems Reviewed: Yes (Negative excepted noted.) Objective Exam Vital Signs Vital Signs - First Documented 03/14/20 03/14/20 03/14/20 12:10 15:30 16:45 Temp 35.0 Pulse 63 Resp 18 B/P (MAP) 143/69 Pulse Ox 94 O2 Delivery Room Air O2 Flow Rate 2.00 FiO2 2 Capillary Refill : Less Than 3 Seconds General Appearance: No Apparent Distress, WD/WN, Obese Eyes: Bilateral Eye Normal Inspection, Bilateral Eye PERRL, Bilateral Eye EOMI HEENT: PERRL/EOMI, Normal ENT Inspection Neck: Normal Inspection, Supple Respiratory: Chest Non Tender, No Accessory Muscle Use, No Respiratory Distress, Crackles (bilateral bases, unchanged from yesterday) Cardiovascular: Regular Rate, Rhythm, No JVD, Normal Peripheral Pulses, Systolic Murmur Gastrointestinal: Soft; No Guarding, No Rebound; Tenderness (mild diffuse) Rectal: Deferred Back: Other (mildly erythematous rash to left upper back that is improving) Extremity: No Calf Tenderness, Swelling (moderate edema to BLE, unchanged from yesterday) Neurologic/Psychiatric: Alert, Oriented x3, No Motor/Sensory Deficits, Normal Mood/Affect Skin: Normal Color, Warm/Dry Lymphatic: No Adenopathy Results Lab Laboratory Tests 03/16/20 11:10: Glucometer 135H 03/16/20 15:49: Glucometer 166H 03/16/20 20:12: Glucometer 161H 03/17/20 05:22: White Blood Count 6.3, Red Blood Count 2.89L, Hemoglobin 8.5L, Hematocrit 27L, Mean Corpuscular Volume 95, Mean Corpuscular Hemoglobin 29, Mean Corpuscular Hemoglobin Concent 31L, Red Cell Distribution Width 17.2H, Platelet Count 213, Mean Platelet Volume 10.6, Sodium Level 144, Potassium Level 3.4L, Chloride Le kathie 106, Carbon Dioxide Level 29, Anion Gap 9, Blood Urea Nitrogen 43H, Creatinine 1.71H, Estimat Glomerular Filtration Rate 29, BUN/Creatinine Ratio 25, Glucose Level 115H, Calcium Level 8.2L, Corrected Calcium 9.1, Total Bilirubin 0.7, Aspartate Amino Transf (AST/SGOT) 24, Alanine Aminotransferase (ALT/SGPT) 15, Alkaline Phosphatase 34L, Total Protein 5.9L, Albumin 2.9L 03/17/20 06:20: Glucometer 126H Microbiology 03/16/20 C. difficile GDH Antigen & Toxins - Final, Complete Assessment/Plan Assessment/Plan Admission Dx CHF exacerbation melena chronic kidney disease anemia shingles dysphagia hypokalemia-mild CHF exacerbation -Lasix 40 mg -Dr. Gambino consulted henrique -Dr. Ugarte has pt on Protonix and Carafate, no intervention at this time -guaiac positive -c. diff negative chronic kidney disease -creatinine improving - 1.71 today -caution with Lasix dosing anemia - 8.5 today -continue to monitor shingles -lidocaine patch dysphagia -speech therapy consulted -DYSII diet -Levsin hypokalemia -supplement potassium SCD's for DVT prophylaxis, Lovenox not given d/t probable GI bleed. Admission Dx CHF exacerbation melena chronic kidney disease anemia shingles dysphagia CHF exacerbation -Lasix 40 mg, supplement potassium -consult Dr. Maki duenas -Dr. Ugarte consulted, he started Protonix and Carafate -guaiac positive chronic kidney disease -monitor creatinine -caution with Lasix dosing anemia -monitor labs shingles -pain control as needed dysphagia -speech therapy consult Clinical Quality Measures Admission Status Admission Dx CHF exacerbation melena chronic kidney disease anemia shingles dysphagia CHF exacerbation -Lasix 40 mg, supplement potassium -consult Dr. Maki duenas -Dr. Ugarte consulted, he started Protonix and Carafate -guaiac positive chronic kidney disease -monitor creatinine -caution with Lasix dosing anemia -monitor labs shingles -pain control as needed dysphagia -speech therapy consult DVT/VTE Risk/Contraindication: Risk Factor Score Per Nursin RFS Level Per Nursing on Admit: 4+=Very High Supervisory-Addendum Brief Verification & Attestation Participated in pt care: history, MDM, physical Personally performed: exam, history, MDM, supervision of care Care discussed with: Medical Student Procedures: n/a Results interpretation: Verified all documentation ACUTE ON CHRONIC CONGESTIVE HEART FAILURE HYPERTENSION ANEMIA GERD CHRONIC UTI CKD SHINGLES CONGESTIVE HEART FAILURE - CONTINUE WITH IV LASIX, 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 ANEMIA - CHECK LABS IN AM, - HGB STABLE - PT HAD SCOPE IN JANUARY WITH GASTRITIS, HE ADVISED NO FURTHER SCOPES AT THIS TIME, CONTINUE WITH PPI GERD - - CONTINUE WITH PROTONIX AND CARAFATE - CONSULT DR. UGARTE CHRONIC UTI - RESUMED TRIMETHOPRIM ON ADMISSION CKD - ACUTE ON CHRONIC - PT IS ON LASIX FOR HEART FAILURE, MONITOR SERIAL LABS. SHINGLES - STOP GABAPENTIN DUE TO SYMPTOMS OF TREMORS. CXR REPORTS INFILTRATES, BUT WHITE COUNT IS NORMAL AND PT DOES NOT HAVE ANY SYMPTOMS OF PNEUMONIA - WITH HER MULTIPLE DRUG ALLERGIES, I WILL NOT START HER ON AN ANTIBIOTIC UNTIL OR UNLESS SHE STARTS TO HAVE WORSENING SYMPTOMS. DVT PROPHYLAXIS WITH SCD'S CANNOT USE LOVENOX FOR CONCERN OF GI BLEED ELLYN VILLALOBOS MED STUDENT Mar 17, 2020 08:46 HIRAL WOLF MD Mar 18, 2020 10:58
[2020-03-17] MEDS: LACTOBACILLUS ACIDOPHILUS (PROBIOTIC) CAPSULE PO SCH ×3 (09:40→17:27)
[2020-03-17] MEDS: doxAzosin 2 MG (CARDURA) TAB PO SCH ×2 (09:41→20:09)
[2020-03-17] MEDS: PANTOPRAZOLE 40 MG (PROTONIX) TAB PO SCH ×2 (09:41→20:10)
[2020-03-17] MEDS: meTOproloL SUCCINATE 50 MG (TOPROL XL) TAB PO SCH (09:41)
[2020-03-17] MEDS: ISOSORBIDE MONONITRATE 60 MG (IMDUR) TAB PO SCH (09:42)
[2020-03-17] MEDS: ARTIFICAL TEARS 0.4 ML UNIT DOSE (REFRESH PLUS) OU SCH ×4 (09:43→20:11)
[2020-03-17] MEDS: LIDOCAINE 4% (SALONPAS) PATCH TOP SCH (09:50)
[2020-03-17] MEDS: HYOSCYAMINE 0.125 MG (LEVSIN) TAB PO SCH ×2 (12:49→17:27)
[2020-03-17] MEDS: ALPHA D GALACTOSIDASE 150 UNIT PO SCH ×3 (13:00→20:11)
--- NOTE | 2020-03-17 14:41 | Speech Therapy Daily Note ---
Speech Daily Progress Note Subjective Date Seen by Provider: Mar 17, 2020 Time Seen by Provider: 00:15 Patient resting in bed following breakfast when I entered her room. Patient c/o food still sticking in her esophagus area. Objective Patient trained on compensatory strategies for clearing including alternating food/drink of 2:1 and small sips/bites which she does with 80% given verbal/visual cues. Assessment Assessment Current Status: Fair Progress Treatment Plan Continue Plan of Care Speech Short Term Goals Short Term Goals Short Term Goals 1) Patient will tolerate least restrictive diet level without s/s of aspiration at 90% or greater. 2) Patient will utilize compensatory strategies as trained at 90% or greater with minimal cues. 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 Speech-Plan Patient/Family Goals Patient/Family Goals: Patient will return to the [facility] upon discharge. Treatment Plan Speech Therapy Treatment Plan: Continue Plan of Care Treatment Duration: Mar 21, 2020 Frequency: 3 times per week Estimated Hrs Per Day: .25 hour per day Rehab Potential: Fair Barriers to Learning: Patient's age Pt/Family Agrees to Plan: Yes Safety Risks/Education Teaching Recipient: Patient Teaching Methods: Demonstration, Discussion Response to Teaching: Verbalize Understanding, Return Demonstration Education Topics Provided: Continue strategies as trained Time Speech Therapy Time In: 08:45 Speech Therapy Time Out: 09:00 Total Billed Time: 15 Billed Treatment Time KENIA Valles [address] Mar 17, 2020 14:40
[2020-03-17] MEDS ORDERED: RT-ALBUTEROL/IPRATROPIUM 3 ML (DUONEB) VIAL INH PRN (17:00)
[2020-03-17] MEDS: TRIMETHOPRIM 100 MG TAB (PROLOPRIM) PO SCH (20:08)
[2020-03-17] MEDS: oxyCODONE/APAP 10/325MG (PERCOCET 10) TABLET PO PRN (20:10)
[2020-03-17] MEDS: amLODIPine 5 MG (NORVASC) TAB PO SCH (20:10)
[2020-03-17] MEDS ORDERED: PATCH REMOVAL TP SCH (21:00)
[2020-03-17] MEDS: MELATONIN 10 MG TABLET PO SCH (23:39)
[2020-03-18] VITALS: BP 135/62
[2020-03-18 04:00] VITALS: BP 136/65
--- NOTE | 2020-03-18 05:08 | NUR ---
WIRE WALKER NOTIFIED THIS RN OF CHANGE IN PT'S HEART RATE/RHYTHM ON TELE. DR. WOLF AND DR. DIANA NOTIFIED OF CHANGES. NO NEW ORDERS AT THIS TIME.
[2020-03-18] MEDS: HYOSCYAMINE 0.125 MG (LEVSIN) TAB PO SCH (05:36)
[2020-03-18] MEDS: LEVOTHYROXINE 125 MCG (LEVOTHROID) TABLET PO SCH (05:36)
[2020-03-18] MEDS: SUCRALFATE 1 GM (CARAFATE) TAB PO SCH (05:36)
[2020-03-18] MEDS: KCL 20 MEQ TAB (K-DUR) PO SCH (05:36)
[2020-03-18] MEDS: FUROSEMIDE 40 MG/4 ML INJ (LASIX) IV SCH (05:38)
[2020-03-18] MEDS: CATHETER FLUSH 10 ML SYR IV SCH (05:39)
[2020-03-18 07:46] LABS: MEAN PLATELET VOLUME 9.8 fL (9.0-12.2); WHITE BLOOD COUNT 6.4 10^3/uL (4.3-11.0)
[2020-03-18 07:50] LABS: HEMOGLOBIN 10.4 g/dL (11.5-16.0)
[2020-03-18 08:00] VITALS: BP 177/76
--- NOTE | 2020-03-18 08:04 | Progress Note - Surgery ---
RUDI,MARIELY MED STUDENT 03/18/20 0804: Subjective Date Seen by a Provider: Mar 18, 2020 Time Seen by a Provider: 07:15 Subjective/Events-last exam Pt seen and examined. She was sitting up in bed eating breakfast in NAD. Pt has no new complaints but does still complain of the sensation of something being stuck in her throat when she tries to eat/drink something. Denies chest pain/SOB/N/V. Review of Systems General: No Chills HEENT: No Head Aches Pulmonary: Dyspnea (still some complaints of SOB, but states that it has improved) Cardiovascular: No: Chest Pain, Palpitations, Lt Headedness Gastrointestinal: No: Nausea, Vomiting, Abdominal Pain Genitourinary: No Dysuria; Other (farnsworth in place, denies dysuria) Objective Exam Vital Signs Date Time Temp Pulse Resp B/P (MAP) Pulse Ox O2 Delivery O2 Flow Rate FiO2 03/18/20 04:00 35.9 57 18 136/65 (88) 95 Nasal Cannula 1.50 03/18/20 01:00 97 03/18/20 00:00 36.0 81 18 135/62 (86) 96 Nasal Cannula 1.50 03/17/20 21:23 Nasal Cannula 1.50 03/17/20 20:00 Nasal Cannula 2.00 03/17/20 20:00 36.5 60 18 162/70 (100) 98 Nasal Cannula 2.00 03/17/20 19:00 61 03/17/20 16:00 36.6 62 18 165/70 (101) 97 Nasal Cannula 1.50 03/17/20 14:04 36.2 70 95 03/17/20 13:00 61 03/17/20 11:00 36.2 70 16 157/68 (97) 97 Nasal Cannula 1.50 03/17/20 10:35 90 Nasal Cannula 2.00 03/17/20 08:35 36.8 74 16 167/74 (105) 95 Nasal Cannula 1.50 03/17/20 08:00 97 Nasal Cannula 1.50 I & O 03/18/20 07:00 Intake Total 1470 ml Output Total 1700 ml Balance -230 ml Capillary Refill : Less Than 3 Seconds General Appearance: No Apparent Distress, Chronically ill, Obese HEENT: PERRL/EOMI Neck: Full Range of Motion, Normal Inspection, Non Tender, Supple Respiratory: Chest Non Tender, Lungs Clear, Normal Breath Sounds, No Accessory Muscle Use, No Respiratory Distress Cardiovascular: Regular Rate, Rhythm, No JVD, No Murmur, Normal Peripheral Pulses, Bradycardia Gastrointestinal: normal bowel sounds, soft, tenderness (mild tenderness to epigastric area, R and L abd incisional hernias, reducible) Extremity: Normal Inspection, Swelling (edema to BLE) Neurologic/Psychiatric: Alert, Oriented x3, No Motor/Sensory Deficits, Normal Mood/Affect Skin: Normal Color, Warm/Dry Lymphatic: No Adenopathy Results Lab Laboratory Tests 03/17/20 10:55: Glucometer 169H 03/17/20 16:05: Glucometer 116H 03/17/20 20:20: Glucometer 132H 03/18/20 05:14: Glucometer 78 03/18/20 07:33: White Blood Count 6.4, Red Blood Count 3.55L, Hemoglobin 10.4#L, Hematocrit 34L, Mean Corpuscular Volume 96, Mean Corpuscular Hemoglobin 29, Mean Corpuscular Hemoglobin Concent 31L, Red Cell Distribution Width 16.8H, Platelet Count 263, Mean Platelet Volume 9.8 Microbiology 03/16/20 C. difficile GDH Antigen & Toxins - Final, Complete Assessment/Plan Assessment/Plan Assessment/Plan Anemia - Hgb 10.4, improved from yesterday(8.5) Dysphagia CHF exacerbation Acute on chronic renal failure HTN CAD Diabetes Recurrent UTI's DJD PAD Carotid artery stenosis Incontinence Gastritis GERD/ulcers Shingles EGD on 02/23/20 showed acute and chronic gastritis, negative for H pylori. GE junction showed mild reflux esophagitis without metaplasia. Pt continues to have loose-black stools, Occult blood test resulted positive Consider barium swallow study to evaluate persistent dysphagia Continue to monitor labs transfuse prn prbc Continue PPI/carafate; If significant change in hgb, would consider repeating endoscopy, not needed at this time. Continue medical management. Clinical Quality Measures DVT/VTE Risk/Contraindication: Risk Factor Score Per Nursin RFS Level Per Nursing on Admit: 4+=Very High MARYSE AGUILLON DO 03/18/201950: Subjective Subjective/Events-last exam Patient states she started to feel better today. She is eating breakfast. She still has a little sensation of food getting stuck in her throat. She denies any abdominal pain currently. Her hemoglobin has increased. She denies any nausea vomiting fever sweats chills shortness of breath or chest pain at this time. Objective Exam General Appearance: No Apparent Distress, Chronically ill HEENT: PERRL/EOMI Neck: Full Range of Motion, Normal Inspection, Non Tender Respiratory: Chest Non Tender, No Accessory Muscle Use, No Respiratory Distress Cardiovascular: Regular Rate, Rhythm, No JVD Gastrointestinal: normal bowel sounds, non tender, soft Extremity: Normal Inspection, Swelling (edema to BLE) Neurologic/Psychiatric: Alert, Oriented x3, Normal Mood/Affect Skin: Normal Color, Warm/Dry Lymphatic: No Adenopathy Assessment/Plan Assessment/Plan Assessment/Plan Anemia - Hgb 10.4, improved from yesterday(8.5) Dysphagia CHF exacerbation Acute on chronic renal failure HTN CAD Diabetes Recurrent UTI's DJD PAD Carotid artery stenosis Incontinence Gastritis GERD/ulcers Shingles EGD on 02/23/20 showed acute and chronic gastritis, negative for H pylori. GE junction showed mild reflux esophagitis without metaplasia. Pt continues to have loose-black stools, Occult blood test resulted positive Had previous barium swallow which was unremarkable, considering repeating if persistent dysphagia Continue to monitor labs transfuse prn prbc Continue PPI/carafate; If significant change in hgb, would consider repeating endoscopy, not needed at this time. Continue medical management. Supervisory-Addendum Brief Verification & Attestation Participated in pt care: history, MDM, physical Personally performed: exam, history, MDM, supervision of care Care discussed with: Medical Student Procedures: n/a Results interpretation: Verified all documentation Verification and Attestation of Medical Student E/M Service A medical student performed and documented this service in my presence. I reviewed and verified all information documented by the medical student and made modifications to such information, when appropriate. I personally performed the physical exam and medical decision making. Maryse Aguillon, Mar 18, 2020,10:01 MARIELY GRIJALVA MED STUDENT Mar 18, 2020 08:04 MARYSE AGUILLON DO Mar 18, 2020 19:51
--- NOTE | 2020-03-18 08:22 | Progress Note ---
Subjective Subjective Date Seen by Provider: Mar 18, 2020 Time Seen by Provider: 07:30 SOB and LE swelling has improved. Dysphagia improved with DYS2 diet, but says the ground up sausage is spicy and upsets her stomach. Notes some urethra pain and feels like she may be having some leakage. Concerned that she has a UTI. Notes that her shingles is improving and the lidocaine patch helped. Has not had a BM yesterday or today. Says she used to take Valium for a long time, but the assisted living would not let her take it. She is requesting it now for anxiety attacks. Hgb today is 10.4. Review of Systems General: No Chills HEENT: No Head Aches Pulmonary: No Cough Cardiovascular: No: Chest Pain, Palpitations, Lt Headedness Gastrointestinal: No: Nausea, Vomiting, Abdominal Pain Genitourinary: Other (farnsworth in place, notes dysuria and possible leakage) Musculoskeletal: back pain (shingles to upper back) Neurological: No: Confusion All Other Systems Reviewed All Other Systems Reviewed: Yes (Negative excepted noted.) Objective Exam Vital Signs Vital Signs - First Documented 03/14/20 03/14/20 03/14/20 12:10 15:30 16:45 Temp 35.0 Pulse 63 Resp 18 B/P (MAP) 143/69 Pulse Ox 94 O2 Delivery Room Air O2 Flow Rate 2.00 FiO2 2 Capillary Refill : Less Than 3 Seconds General Appearance: No Apparent Distress, WD/WN, Chronically ill, Obese Eyes: Bilateral Eye Normal Inspection, Bilateral Eye PERRL, Bilateral Eye EOMI HEENT: PERRL/EOMI, Normal ENT Inspection Neck: Normal Inspection, Supple Respiratory: Chest Non Tender, No Accessory Muscle Use, No Respiratory Distress, Crackles (bibasilar crackles, improved from yesterday) Cardiovascular: Regular Rate, Rhythm, Systolic Murmur Gastrointestinal: Soft; No Guarding, No Rebound; Tenderness (mild diffuse) Rectal: Deferred Back: Other (mildly erythematous rash to left upper back that is improving) Extremity: No Calf Tenderness, Swelling (edema to BLE, improved from yesterday) Neurologic/Psychiatric: Alert, Oriented x3, No Motor/Sensory Deficits, Normal Mood/Affect Skin: Normal Color, Warm/Dry Lymphatic: No Adenopathy Results Lab Laboratory Tests 12/17/20 10:55: Glucometer 169H 12/17/20 16:05: Glucometer 116H 03/17/20 20:20: Glucometer 132H 03/18/20 05:14: Glucometer 78 03/18/20 07:33: White Blood Count 6.4, Red Blood Count 3.55L, Hemoglobin 10.4#L, Hematocrit 34L, Mean Corpuscular Volume 96, Mean Corpuscular Hemoglobin 29, Mean Corpuscular Hemoglobin Concent 31L, Red Cell Distribution Width 16.8H, Platelet Count 263, Mean Platelet Volume 9.8 Microbiology 03/16/20 C. difficile GDH Antigen & Toxins - Final, Complete Assessment/Plan Assessment/Plan Admission Dx CHF exacerbation melena chronic kidney disease anemia shingles dysphagia hypokalemia-mild dysuria CHF exacerbation-improving -Lasix 40 mg -Dr. Gambino consulted henrique -Dr. Ugarte has pt on Protonix and Carafate, no intervention at this time -guaiac positive -c. diff negative chronic kidney disease -caution with Lasix dosing anemia - 10.4 today -continue to monitor shingles-improving -lidocaine patch as needed dysphagia -DYSII diet -Levsin hypokalemia -supplement potassium dysuria -check UA SCD's for DVT prophylaxis, Lovenox not given d/t probable GI bleed. Admission Dx CHF exacerbation melena chronic kidney disease anemia shingles dysphagia hypokalemia-mild CHF exacerbation -Lasix 40 mg -Dr. Gambino consulted henrique -Dr. Ugarte has pt on Protonix and Carafate, no intervention at this time -guaiac positive -c. diff negative chronic kidney disease -creatinine improving - 1.71 today -caution with Lasix dosing anemia - 8.5 today -continue to monitor shingles -lidocaine patch dysphagia -speech therapy consulted -DYSII diet -Levsin hypokalemia -supplement potassium SCD's for DVT prophylaxis, Lovenox not given d/t probable GI bleed. Clinical Quality Measures Admission Status Admission Dx CHF exacerbation melena chronic kidney disease anemia shingles dysphagia hypokalemia-mild CHF exacerbation -Lasix 40 mg -Dr. Gambino consulted henrique -Dr. Ugarte has pt on Protonix and Carafate, no intervention at this time -guaiac positive -c. diff negative chronic kidney disease -creatinine improving - 1.71 today -caution with Lasix dosing anemia - 8.5 today -continue to monitor shingles -lidocaine patch dysphagia -speech therapy consulted -DYSII diet -Levsin hypokalemia -supplement potassium SCD's for DVT prophylaxis, Lovenox not given d/t probable GI bleed. DVT/VTE Risk/Contraindication: Risk Factor Score Per Nursin RFS Level Per Nursing on Admit: 4+=Very High Supervisory-Addendum Brief Verification & Attestation Participated in pt care: history, MDM, physical Personally performed: exam, history, MDM, supervision of care Care discussed with: Medical Student Procedures: n/a Results interpretation: Verified all documentation ACUTE ON CHRONIC CONGESTIVE HEART FAILURE HYPERTENSION ANEMIA GERD CHRONIC UTI CKD SHINGLES CONGESTIVE HEART FAILURE - CONTINUE WITH IV LASIX, DEFER TO CONTRACTOR BROOMCORN THRESHING HYPERTENSION - HOLD HOME REGIMEN RIGHT NOW, MONITOR SYMPTOMS. ANEMIA - CHECK LABS IN AM, - HGB STABLE - PT HAD SCOPE IN JANUARY WITH GASTRITIS, HE ADVISED NO FURTHER SCOPES AT THIS TIME, CONTINUE WITH PPI GERD - - CONTINUE WITH PROTONIX AND CARAFATE - CONSULT DR. UGARTE CHRONIC UTI - RESUMED TRIMETHOPRIM ON ADMISSION - HOWEVER TODAY WE WILL STOP TRIMETHOPRIM AND START ON MEROPENEM DUE TO HER HX OF RECURRENT UTI WITH ACUTE SYMPTOMS AND CHECK UA. CKD - ACUTE ON CHRONIC - PT IS ON LASIX FOR HEART FAILURE, MONITOR SERIAL LABS. SHINGLES - STOP GABAPENTIN DUE TO SYMPTOMS OF TREMORS. DVT PROPHYLAXIS WITH SCD'S CANNOT USE LOVENOX FOR CONCERN OF GI BLEED ELLYN VILLALOBOS MED STUDENT Mar 18, 2020 08:21 HIRAL WOLF MD Mar 18, 2020 11:00
[2020-03-18] MEDS: meTOproloL SUCCINATE 50 MG (TOPROL XL) TAB PO SCH (09:25)
[2020-03-18] MEDS: ARTIFICAL TEARS 0.4 ML UNIT DOSE (REFRESH PLUS) OU SCH (09:25)
[2020-03-18] MEDS: doxAzosin 2 MG (CARDURA) TAB PO SCH (09:25)
[2020-03-18] MEDS: PANTOPRAZOLE 40 MG (PROTONIX) TAB PO SCH (09:25)
[2020-03-18] MEDS: LACTOBACILLUS ACIDOPHILUS (PROBIOTIC) CAPSULE PO SCH (09:25)
[2020-03-18] MEDS: LIDOCAINE 4% (SALONPAS) PATCH TOP SCH (09:25)
[2020-03-18] MEDS: ISOSORBIDE MONONITRATE 60 MG (IMDUR) TAB PO SCH (09:25)
[2020-03-18] MEDS: DICLOFENAC 1% GEL 100 GM (VOLTAREN) TUBE TOP PRN (09:26)
--- NOTE | 2020-03-18 10:24 | NUR ---
Swing Bed Note: Dr. Bhakta would like the patient to go to swing bed to continue with needed IV abx (UTI). Anticipate admission to swing bed today 03/18/20.
--- NOTE | 2020-03-18 10:58 | NUR ---
Patient discharged to swing bed status, see new account.
== END 2020-03-18 10:08 | disposition swing bed (61) | DRG 291 ==
LOC: EDUNIT# 12:05 → ER 12:07 → 4TH 14:27
PROVIDERS: ADMIT Family Medicine; ATTEND Family Medicine
DX: I13.0 Hypertensive heart and chronic kidney disease with heart failure and stage 1 through stage 4 chronic kidney disease, or unspecified chronic kidney disease (principal); I50.33 Acute on chronic diastolic (congestive) heart failure; K92.1 Melena; N17.9 Acute kidney failure, unspecified; I42.8 Other cardiomyopathies; J44.9 Chronic obstructive pulmonary disease, unspecified; E78.00 Pure hypercholesterolemia, unspecified; Z20.828 Contact with and (suspected) exposure to other viral communicable diseases; I10 Essential (primary) hypertension; K57.90 Diverticulosis of intestine, part unspecified, without perforation or abscess without bleeding; G89.29 Other chronic pain; M54.9 Dorsalgia, unspecified; M19.90 Unspecified osteoarthritis, unspecified site; E03.9 Hypothyroidism, unspecified; F41.9 Anxiety disorder, unspecified; F43.10 Post-traumatic stress disorder, unspecified; F32.9 Major depressive disorder, single episode, unspecified; E11.22 Type 2 diabetes mellitus with diabetic chronic kidney disease; D64.9 Anemia, unspecified; B02.9 Zoster without complications; E87.6 Hypokalemia; R13.10 Dysphagia, unspecified; I25.10 Atherosclerotic heart disease of native coronary artery without angina pectoris; E11.21 Type 2 diabetes mellitus with diabetic nephropathy; I65.23 Occlusion and stenosis of bilateral carotid arteries; N18.30 Chronic kidney disease, stage 3 unspecified; K21.00 Gastro-esophageal reflux disease with esophagitis, without bleeding; R30.0 Dysuria; R32 Unspecified urinary incontinence; K29.70 Gastritis, unspecified, without bleeding; K25.9 Gastric ulcer, unspecified as acute or chronic, without hemorrhage or perforation; R42 Dizziness and giddiness; R19.7 Diarrhea, unspecified; I08.0 Rheumatic disorders of both mitral and aortic valves; Z79.84 Long term (current) use of oral hypoglycemic drugs; Z87.891 Personal history of nicotine dependence; Z88.1 Allergy status to other antibiotic agents; Z91.041 Radiographic dye allergy status; Z88.0 Allergy status to penicillin; Z88.5 Allergy status to narcotic agent; Z91.013 Allergy to seafood; Z79.899 Other long term (current) drug therapy
CPT/HCPCS: 36415; 51702; 71045; 71046; 80048; 80053; 82274; 82728; 82962; 83540; 83880; 84145; 84484; 85007; 85025; 85027; 85379; 85610; 87324; 87449; 87635; 93005; 93306; 94640; 94760; 96374

== ENCOUNTER 2020-03-18 10:06 | Inpatient (IN) | payer MEDICARE, OTHER, MEDICAID ==
[~2020-03-18] VITALS: Ht 157.5 cm; Wt 81.9 kg
[~2020-03-18 10:06] MED LIST changes: +ACET325C7 PO; +CALC500T47 PO; +CALC500T7 PO; +CETI10TA17 PO; +CHOL4PAC3 PO; +CHOL500044 PO; +CLOP75TA69 PO; +DICL100G31 TOP; +DOXA2TAB2 PO; +FERR325T24 PO; +FLUT9.9S NSEACH; +FURO-125 PO; +GABA300C PO; +NITR0.4T42 SL; +NYST15CR TOP; +ONDA-105 PO; +OXYC-556 PO; +POLY17PO6 PO; +SUCR1TAB PO; +[UNRECOGNIZED DRUG - OTHER] TP
[2020-03-18] MEDS ORDERED: NITROGLYCERIN 0.4 MG SL TABS BTL 25'S SL PRN (10:15)
[2020-03-18] MEDS ORDERED: RT-ALBUTEROL/IPRATROPIUM 3 ML (DUONEB) VIAL INH PRN (10:15)
[2020-03-18] MEDS ORDERED: ACETAMINOPHEN 325 MG TABLET PO PRN (10:15)
[2020-03-18] MEDS ORDERED: DICLOFENAC 1% GEL 100 GM (VOLTAREN) TUBE TOP PRN (10:15)
[2020-03-18] MEDS ORDERED: MECLIZINE 25 MG (ANTIVERT) TAB PO PRN (10:15)
[2020-03-18] MEDS ORDERED: ONDANSETRON 4 MG (ZOFRAN) ORAL DISSOLVE TAB PO PRN (10:15)
[2020-03-18 12:00] VITALS: BP 140/95
[2020-03-18] MEDS ORDERED: ALPHA D GALACTOSIDASE 150 UNIT PO SCH (13:00)
[2020-03-18] MEDS: SUCRALFATE 1 GM (CARAFATE) TAB PO SCH ×3 (13:28→22:04)
[2020-03-18] MEDS: LACTOBACILLUS ACIDOPHILUS (PROBIOTIC) CAPSULE PO SCH ×2 (13:29→17:25)
[2020-03-18] MEDS: MEROPENEM 500 MG in WATER (STERILE) FOR INJECTION 10 ML IV SCH ×2 (13:29→18:42)
[2020-03-18] MEDS: HYOSCYAMINE 0.125 MG (LEVSIN) TAB PO SCH ×2 (13:29→16:37)
[2020-03-18] MEDS: CATHETER FLUSH 10 ML SYR IV SCH ×2 (14:00→22:05)
--- NOTE | 2020-03-18 14:08 | NUR ---
Swing Bed Note: Dr. Bhakta would like the patient to go to swing bed to continue with needed IV abx (UTI). Anticipate admission to swing bed today 03/18/20.
--- NOTE | 2020-03-18 14:12 | NUR ---
Admission Drug Regimen Review Completed: Date: 03/18/20 Time: 1423 Physician Notified: HIRAL BHAKTA MD Date: 03/18/20 Time: 1423 Issue Identified; Action Plan to Resolve and Any Action Taken: The [employer] - [employer] system auto dc'd Carboxymethyicell 1gtt eah OU TID. This was reentered into the swing bed account. Dr. Bhakta notified.
--- NOTE | 2020-03-18 14:42 | NUR ---
Admission Drug Regimen Review Completed: Date: 03/18/20 Time: 1443 Physician Notified: HIRAL BHAKTA MD Date: 03/18/20 Time: 1443 Issue Identified; Action Plan to Resolve and Any Action Taken: Melatonin did not carry across to the acute account. Contacted primary physician, Dr. Bhakta and she wants it to be entered back into [employer]. Melatonin 10mg po HS entered into [employer] per Dr. Bhakta order.
--- NOTE | 2020-03-18 15:32 | Cardiology Progress Note ---
Cardiology SOAP Progress Note Subjective: No significant cardiac complaints. Objective: I&O/Vital Signs 03/18/20 11:56 Pulse Ox 99 O2 Flow Rate 3.00 Weight (Pounds): 190 Weight (Ounces): 8.3 Weight (Calculated Kilograms): 86.692464 Constitutional: AAO x 3 Respiratory: chest is bilaterally symmetric, lungs clear to auscultation Cardiovascular: regular rate-rhythm, S1 and S2 Gastrointestional: soft, audible bowel sounds Extremities: normal range of motion, non-tender, normal inspection, no lower extremity edema bilateral Neurologic/Psychiatric: no motor/sensory deficits, alert, normal mood/affect, oriented x 3 A/P: Assessment/Dx: Congestive heart failure, acute on chronic left ventricular diastolic dysfuncti on nonischemic cardiomyopathy Coronary artery disease Hypertension Hyperlipidemia Plan: Congestive heart failure, acute left ventricular diastolic dysfunction, last echo showed normal left ventricular systolic function EF 55-65 percent, grade 2 diastolic dysfunction, left atrial dilatation. Moderate aortic stenosis, valve area 1.2-1.6 cm, compensated at this time, feeling better. Continue to Orthostatic dizziness, generalized weakness, patient is having severe diarrhea and worsening anemia. Might not tolerate aggressive diuresis at this point. Continue to monitor. Diarrhea, reporting dark stool, questionable GI bleed, stool for occult blood positive. Underwent EGD last month showing gastritis and esophagitis. On Carafate and Protonix, C. diff negative. Acute on chronic renal insufficiency, chronic kidney disease stage III with diabetic nephropathy. Responding slowly to diuretic, cautious diuresis while mo nitoring renal function Hypertension, difficult to control. Intolerant to multiple medications, conitnue to monitor blood pressure at this time. Patient has been having orthostatic hypotension and dizziness. Coronary artery disease, had a cardiac catheterization done in August [address] Swift showing diffuse moderate coronary artery disease involving all her coronary system with 50 percent stenosis nonobstructive disease. Anemia, monitor H&H Diabetes mellitus, followed and managed by primary care physician History of recurrent UTI with multidrug resistance Degenerative joint disease History of intolerance to statin with intolerant to angiotensin receptor neeru Peripheral arterial disease bilateral peripheral angiography done with Dr. Monahan showing significant obstructive disease Mild bilateral carotid stenosis, continue to monitor as outpatient. Chronic pedal edema with history of chronic venous insufficiency History of urinary incontinence Thank you for your consultation. Please call me if you have any questions. Carrington Johnson MD, FACP, FACC, FSCAI, FHRS, CCDS Interventional Cardiology Cardiac Electrophysiology Vascular Medicine and Endovascular Interventions Brad JOHNSON MD Mar 18, 2020 15:32
--- NOTE | 2020-03-18 16:19 | Occupational Therapy Eval ---
OT Evaluation-General/PLF Medical Diagnosis Admission Date Mar 18, 2020 at 11:05 Medical Diagnosis: CHF, UTI Onset Date: Mar 14, 2020 Therapy Diagnosis Therapy Diagnosis: decreased ADL status Height/Weight Height (Feet): 5 Height (Inches): 3.00 Weight (Pounds): 190 Weight (Ounces): 8.3 Referral Physician: Yony Referral Reason: Evaluation/Treatment Medical History Pertinent Medical History: CAD, DM, HTN Additional Medical History bilateral TKR, Bilateral THR, shoulder surgery Current History Pt to ED 03/14/2020 with SOA and LE swelling Social History Home: Assisted Living ([facility]) ADL-Prior Level of Function SCALE: Activities may be completed with or without assistive devices. 0-Gmqlnfrpgh-ozkvayh completes the activity by him/herself with no assistance from a helper. 5-Set-up or Clean-up Assistance-helper sets up or cleans up; patient completes activity. Anderson assists only prior to or following the activity. 4-Supervision or Touching Assistance-helper provides verbal cues and/or touching/steadying and/or contact guard assistance as patient completes activity. Assistance may be provided throughout the activity or intermittently. 3-Partial/Moderate Assistance-helper does LESS THAN HALF the effort. Anderson lifts, holds or supports trunk or limbs, but provides less than half the effort. 2-Substantial/Maximal Assistance-helper does MORE THAN HALF the effort. Anderson lifts or holds trunk or limbs and provides more than half the effort. 9-Zemqkdmej-krnvdv does ALL the effort. Patient does none of the effort to complete the activity. Or, the assistance of 2 or more helpers is required for the patient to complete the activity. If activity was not attempted, code reason: 7-Patient Refused. 9-Not Applicable-not attempted and the patient did not perform the activity before the current illness, exacerbation or injury. 10-Not Attempted due to Environmental Limitations-(lack of equipment, weather restraints, etc.). 88-Not Attempted due to Medical Conditions or Safety Concerns. ADL PLOF Comments Pt indicates she lives at [facility], she is independent with bathing and dressing, she is able to wash dishes and make the bed. Meals are provided to pt and she has some assistance with cleaning on Wednesdays. 2L O2 NC at [facility]. Pt has a sock aide and backhoe operator to assist with footwear and lower body dressing, and a scrubbing device on the floor of the shower where she can wash her feet in a sitting position Self Care: Needed Some Help Functional Cognition: Independent DME/Equipment: Bath Chair, Shower DME/Equipment Comments walker OT Current Status Subjective Pt laying in bed, agreeable to OT tx. Mental Status/Objective Patient Orientation: Person, Place, Time, Situation Attachments: Oxygen (2L) Current Glasses/Contacts: Yes Hearing Aids: No Dentures/Partials: No Hand Dominance: Right Upper Extremity ROM WFL, RUE shoulder flexion to approx 120 degrees, LUE shoulder flexion to approx 110 degrees Upper Extremity Coordination WFL Upper Extremity Sensation WFL ADL-Treatment Eating (QC): 6 (per pt report) Oral Hygiene (QC): 4 (SBA standing at sink) Shower/Bathe Self (QC): 3 (Min A. Assist washing bilat feet, pt able to wash all other parts) Upper Body Dressing (QC): 7 (Pt declined donning shirt, she was able to take off jacket independently.) Lower Body Dressing (QC): 3 (Mod A threading BLEs, pt able to complete pant hike, SBA standing at FWW) On/Off Footwear (QC): 3 (Mod A. Pt able to doff socks, assist to don) Toileting Hygiene (QC): 4 (SBA, pt able to complete hygiene and pant hike with SBA. slight LOB noted with pant hike, pt able to self correct) Other Treatments Pt laying in bed, transferred to EOB with min A. Pt completed sponge bath and dressing at EOB, then ambulated into the restroom using FWW, SBA and OT management of O2 lines. Pt completed toileting, slight LOB noted when pt stood from toilet with pant hike, pt able to self correct. Pt indicates she feels like she would end up on the floor at home if the toilet was not behind her. Pt then stood at sink and washed her hands and brushed her teeth with SBA. Used FWW to return to bed, sit to supine SBA. Post OT tx, pt laying in bed, call light in reach and all needs met. Education OT Patient Education: Correct positioning, Energy conservation, Modified ADL techniques, Progress toward Goal/Update tx plan, Purpose of tx/functional activities, Rehab process Teaching Recipient: Patient Teaching Methods: Discussion Response to Teaching: Verbalize Understanding OT Double Needle Operator Lockstitch Goals Double Needle Operator Lockstitch Goals Time Frame: Mar 30, 2020 Eating (QC): 6 Oral Hygiene (QC): 6 Toileting Hygiene (QC): 6 Shower/Bathe Self (QC): 6 Upper Body Dressing (QC): 6 Lower Body Dressing (QC): 6 On/Off Footwear (QC): 6 Additional Goals: 1-Demonstrate ADL Tasks, 2-Verbalize Understanding, 3- ImproveStrength/Neelima 1=Demonstrate adherence to instructed precautions during ADL tasks. 2=Patient will verbalize/demonstrate understanding of assistive devices/modifica tions for ADL. 3=Patient will improve strength/tolerance for activity to enable patient to perform ADL's. OT Education/Plan Problem List/Assessment Assessment: Decreased Activ Tolerance, Decreased UE Strength, Impaired Funct Balance, Impaired I ADL's, Impaired Self-Care Skills Pt would benefit from short term skilled OT in order to maximize LOF for safe return home to [facility]. Discharge Recommendations Plan/Recommendations: Continue POC Therapy Discharge Recommendati: Assisted Living Treatment Plan/Plan of Care Patient would benefit from OT for education, treatment and training to promote independence in ADL's, mobility, safety and/or upper extremity function for ADL's. Plan of Care: ADL Retraining, Functional Mobility, UE Funct Exercise/Act Treatment Duration: Mar 30, 2020 Frequency: 5 times per week Estimated Hrs Per Day: .25 hour per day Agreement: Yes Rehab Potential: Good Time/GCodes Start Time: 15:40 Stop Time: 16:10 Total Time Billed (hr/min): 30 Billed Treatment Time 1, EVL (10'), ADL (20') HALLE DOMINGO OT Mar 18, 2020 16:18
[2020-03-18 16:35] LABS: BILIRUBIN,URINE NEGATIVE (NEGATIVE); CLARITY,URINE CLEAR; COLOR,URINE YELLOW; GLUCOSE, URINE (UA) NEGATIVE (NEGATIVE); KETONES,URINE NEGATIVE (NEGATIVE); LEUKOCYTE ESTERASE ,URINE 1+ (NEGATIVE); NITRITE,URINE NEGATIVE (NEGATIVE); PROTEIN,URINE NEGATIVE (NEGATIVE)
[2020-03-18] MEDS: ARTIFICAL TEARS 0.4 ML UNIT DOSE (REFRESH PLUS) OU SCH ×3 (16:37→22:03)
[2020-03-18 16:52] LABS: BACTERIA,URINE FEW /HPF; RBC,URINE 0-2 /HPF
[2020-03-18 18:28] VITALS: BP 193/74
[2020-03-18] MEDS: oxyCODONE/APAP 10/325MG (PERCOCET 10) TABLET PO PRN (18:39)
[2020-03-18 22:00] VITALS: BP 155/64
[2020-03-18] MEDS: PANTOPRAZOLE 40 MG (PROTONIX) TAB PO SCH (22:04)
[2020-03-18] MEDS: MELATONIN 10 MG TABLET PO SCH (22:04)
[2020-03-18] MEDS: doxAzosin 2 MG (CARDURA) TAB PO SCH (22:04)
[2020-03-18] MEDS: amLODIPine 5 MG (NORVASC) TAB PO SCH (22:04)
[2020-03-18] MEDS: PATCH REMOVAL TP SCH (22:11)
[2020-03-19] MEDS: oxyCODONE/APAP 10/325MG (PERCOCET 10) TABLET PO PRN ×4 (00:06→20:35)
[2020-03-19] MEDS: MEROPENEM 500 MG in WATER (STERILE) FOR INJECTION 10 ML IV SCH ×4 (00:06→22:24)
[2020-03-19 05:12] LABS: HEMOGLOBIN 9.8 g/dL (11.5-16.0); MEAN PLATELET VOLUME 9.9 fL (9.0-12.2); WHITE BLOOD COUNT 5.5 10^3/uL (4.3-11.0)
[2020-03-19 05:25] LABS: POTASSIUM 3.8 MMOL/L (3.6-5.0)
[2020-03-19 05:26] VITALS: BP 184/77
[2020-03-19 05:26] LABS: CALCIUM 8.5 MG/DL (8.5-10.1)
[2020-03-19 05:27] LABS: TOTAL PROTEIN 6.1 GM/DL (6.4-8.2)
[2020-03-19 05:29] LABS: BILIRUBIN,TOTAL 0.5 MG/DL (0.1-1.0)
[2020-03-19 05:31] LABS: CREATININE SERUM 1.62 MG/DL (0.60-1.30)
[2020-03-19] MEDS: FUROSEMIDE 40 MG/4 ML INJ (LASIX) IV SCH ×2 (06:37→06:46)
[2020-03-19] MEDS: KCL 20 MEQ TAB (K-DUR) PO SCH (06:37)
[2020-03-19] MEDS: CATHETER FLUSH 10 ML SYR IV SCH ×3 (06:37→22:24)
[2020-03-19] MEDS: HYOSCYAMINE 0.125 MG (LEVSIN) TAB PO SCH ×3 (06:38→17:14)
[2020-03-19] MEDS: LEVOTHYROXINE 125 MCG (LEVOTHROID) TABLET PO SCH (06:38)
[2020-03-19] MEDS: SUCRALFATE 1 GM (CARAFATE) TAB PO SCH ×4 (06:38→20:33)
[2020-03-19 06:42] VITALS: BP 160/58
[2020-03-19] MEDS: PANTOPRAZOLE 40 MG (PROTONIX) TAB PO SCH ×2 (08:40→20:34)
[2020-03-19] MEDS: LIDOCAINE 4% (SALONPAS) PATCH TOP SCH (08:40)
[2020-03-19] MEDS: doxAzosin 2 MG (CARDURA) TAB PO SCH ×2 (08:40→20:34)
[2020-03-19] MEDS: LACTOBACILLUS ACIDOPHILUS (PROBIOTIC) CAPSULE PO SCH ×3 (08:40→17:14)
[2020-03-19] MEDS: ISOSORBIDE MONONITRATE 60 MG (IMDUR) TAB PO SCH (08:41)
[2020-03-19] MEDS: ARTIFICAL TEARS 0.4 ML UNIT DOSE (REFRESH PLUS) OU SCH ×4 (08:41→20:36)
[2020-03-19] MEDS: meTOproloL SUCCINATE 50 MG (TOPROL XL) TAB PO SCH (08:47)
[2020-03-19] MEDS ORDERED: LIDOCAINE PF 1% 2 ML AMP ONE (09:43)
--- NOTE | 2020-03-19 10:26 | Physical Therapy Progress Note ---
Therapy Progress Note PT orders received. When PT presented for evaluation, Pt seated at EOB with nursing present. Pt had just fallen in BR, gash on head. Nursing in contact with physician, monitoring vitals, addressing gash. PT will evaluate on 03/21/2020 as Pt condition allows. NICOLAS PEREZ DPMonika Mar 19, 2020 10:26
--- NOTE | 2020-03-19 10:38 | NUR ---
PT FELL ON BATHROOM FLOOR AT APPROX 0935 WHEN SHE GOT OFF OF TOILET WITHOUT USING CALL LIGHT AND UP TO WASH HANDS. WHEN RN AND PCT, JACQUELIN, FOUND HER AFTER FALL, SHE WAS LYING ON HER RIGHT SIDE IN BATHROOM AND RT SABIANIST BLEEDING. BEFORE GETTING PT UP OFF FLOOR RN ASSESSED PT AND SHE REPORTED NO PAIN TO SHOULDERS OR HIPS, JUST TO HEAD. PCT AND RN GOT HER UP OFF FLOOR AND WALKED HER TO HER BED WITH WALKER. PT WAS WEAK AND APPEARED NERVOUS FROM FALL. PRESSURE APPLIED TO WOUND AND V/S TAKEN ALL WNL, BP SLIGHTLY ELEVATED AT 166/76. DR HARRISON LINING STRAP CLOSER FOR DR WOLF NOTIFIED AND SHE ORDERED CT SCAN W/O CONTRAST AND TO HAVE DR UGARTE LOOK AT LACERATION TO SEE IF IT REQUIRED STITCHES. LACERATION TO RT SABIANIST STOPPED BLEEDING BEFORE DR UGARTE CAME TO ASSESS AND PUT IN 3 STITCHES TO THE LACERATION THAT IS APPROX 2.4 CM LONG. PT TOLERATED WELL. NEUROCHECK STARTED AFTER SHE GOT BACK IN BED. RT PUPIL SLIGHTLY SMALLER THAN LEFT. THERE IS SWELLING TO RT SIDE OF FACE AND BRUISING STARTING RT SIDE OF FACE WELL. PT HAS ASKED 3 SEPERATE TIMES IF HER DAUGHTER, HELGA AND GRANDDAUGHTER, LUNA, NOTIFIED, WHICH BREAD WRAPPER, TAURUS HAD DONE RIGHT AFTER FALL. CT CALLED AROUND 1020 AND REPORTED THEY WOULD COME GET PT AFTER CT ROOM CLEANED. PT CONTINUES TO LAY IN BED AND TALKING TO STAFF AND REMINDED NOT TO FALL ASLEEP. SHE DOES HAVE PAIN TO HEAD FROM FALL. PAIN MED, PERCOCET ADMIN 50 MINUTES PRIOR TO FALL, SHE HAS BEEN GETTING PAIN MED FREQUENTLY D/T SHINGLES PAIN ON BACK. WILL CONTINUE TO MONITOR. ICE PACK APPLIED TO RT SIDE OF FACE AND PT REPORTS ICE HELPING.
--- NOTE | 2020-03-19 11:25 | Diagnostic Imaging Report ---
PROCEDURE: CT head without contrast. TECHNIQUE: Multiple contiguous axial images were obtained through the brain without the use of intravenous contrast. Auto Exposure Controls were utilized during the CT exam to meet ALARA standards for radiation dose reduction. INDICATION: Trauma, fall. COMPARISON: CT head from 02/22/2019. FINDINGS: No intracranial hyperdense hemorrhage or space-occupying mass. No hydrocephalus or midline shift. Price-white matter differentiation is well-preserved. Mild global atrophy. Minimal periventricular white matter hypoattenuation indicative of chronic microvascular ischemic disease. No skull fracture. Right supraorbital scalp swelling and soft tissue gas likely from laceration. IMPRESSION: 1. No acute intracranial hemorrhage or skull fracture. 2. Right supraorbital laceration and swelling. Dictated by: Dictated on workstation # [id number]
--- NOTE | 2020-03-19 11:50 | Progress Note - Surgery ---
RUDIMARIELY MED STUDENT 03/19/20 1150: Subjective Date Seen by a Provider: Mar 19, 2020 Time Seen by a Provider: 08:00 Subjective/Events-last exam Pt was seen and examined. She was sitting up in bed eating breakfast, NAD. Denies new complaints of chest pain, abd pain, N/V. Continues to have complaint of something stuck in her throat when she tries to swallow something. She is otherwise doing well in good spirits. Review of Systems General: No Chills HEENT: No Head Aches; Dysphasia Pulmonary: No Dyspnea Cardiovascular: No: Chest Pain, Palpitations, Lt Headedness Gastrointestinal: No: Nausea, Vomiting, Abdominal Pain Genitourinary: No Dysuria Neurological: No: Weakness, Numbness Objective Exam Vital Signs Date Time Temp Pulse Resp B/P (MAP) Pulse Ox O2 Delivery O2 Flow Rate FiO2 03/19/20 07:00 74 03/19/20 06:42 160/58 (92) 03/19/20 05:26 35.6 64 20 184/77 (112) 98 Nasal Cannula 2.00 03/19/20 01:00 56 03/18/20 22:00 36.1 60 18 155/64 (94) 96 Nasal Cannula 2.00 03/18/20 21:59 Nasal Cannula 2.00 03/18/20 19:00 61 03/18/20 18:28 36.6 54 20 193/74 (113) 97 Nasal Cannula 2.00 03/18/20 12:00 36.1 55 20 140/95 (110) 97 Nasal Cannula 2.00 03/18/20 11:56 99 3.00 I & O 03/19/20 07:00 Intake Total 1640 ml Output Total 1500 ml Balance 140 ml Capillary Refill : Less Than 3 Seconds General Appearance: No Apparent Distress, Chronically ill, Obese HEENT: PERRL/EOMI Neck: Full Range of Motion, Normal Inspection, Non Tender, Supple Respiratory: Chest Non Tender, Lungs Clear, Normal Breath Sounds, No Accessory Muscle Use, No Respiratory Distress Cardiovascular: Regular Rate, Rhythm, No JVD, Normal Peripheral Pulses, Systolic Murmur Gastrointestinal: normal bowel sounds, non tender, soft Extremity: Normal Inspection, Normal Range of Motion, Non Tender Neurologic/Psychiatric: Alert, Oriented x3, Normal Mood/Affect Skin: Normal Color, Warm/Dry Lymphatic: No Adenopathy Results Lab Laboratory Tests 03/18/20 14:00: Urine Color YELLOW, Urine Clarity CLEAR, Urine pH 6.0, Urine Specific [place] 1.010L, Urine Protein NEGATIVE, Urine Glucose (UA) NEGATIVE, Urine Ketones NEGATIVE, Urine Nitrite NEGATIVE, Urine Bilirubin NEGATIVE, Urine Urobilinogen 0.2, Urine Leukocyte Esterase 1+H, Urine RBC (Auto) TRACE-L, Urine RBC 0-2, Urine WBC 10-25H, Urine Squamous Epithelial Cells 5-10, Urine Crystals NONE, Urine Bacteria FEWH, Urine Casts PRESENT, Urine Hyaline Casts 2-5H, Urine Mucus NEGATIVE, Urine Culture Indicated YES 03/18/20 16:14: Glucometer 115H 03/18/20 20:27: Glucometer 112H 03/19/20 04:47: White Blood Count 5.5, Red Blood Count 3.38L, Hemoglobin 9.8L, Hematocrit 32L, Mean Corpuscular Volume 94, Mean Corpuscular Hemoglobin 29, Mean Corpuscular Hemoglobin Concent 31L, Red Cell Distribution Width 16.7H, Platelet Count 267, Mean Platelet Volume 9.9, Sodium Level 139, Potassium Level 3.8, Chloride Level 99, Carbon Dioxide Level 31, Anion Gap 9, Blood Urea Nitrogen 33H, Creatinine 1.62H, Estimat Glomerular Filtration Rate 30, BUN/Creatinine Ratio 20, Glucose Level 91, Calcium Level 8.5, Corrected Calcium 9.3, Total Bilirubin 0.5, Aspartate Amino Transf (AST/SGOT) 23, Alanine Aminotransferase (ALT/SGPT) 14, Alkaline Phosphatase 39L, Total Protein 6.1L, Albumin 3.0L 03/19/20 05:26: Glucometer 94 Microbiology 03/18/20 Urine Culture - Preliminary, Resulted Proteus species Assessment/Plan Assessment/Plan Assessment/Plan Anemia - Hgb stable, 9.8 Dysphagia CHF exacerbation Acute on chronic renal failure HTN CAD Diabetes Gastritis GERD/ulcers Shingles Loose black stools have resolved, Hgb stable Had previous barium swallow which was unremarkable, considering repeating if persistent dysphagia Continue to monitor labs transfuse prn prbc Continue PPI/carafate; If significant change in hgb, would consider repeating endoscopy, not needed at this time. Continue medical management. Clinical Quality Measures DVT/VTE Risk/Contraindication: Risk Factor Score Per Nursin MARYSE AGUILLON DO 03/19/20 1256: Subjective Subjective/Events-last exam Patient tolerating diet. No abdominal pain. Laying down, feels like something stuck. She sits up maybe a little better. No n/v fever sweats chills shortness of breath or chest pain. Hgb 9.8 Objective Exam General Appearance: No Apparent Distress, Chronically ill, Obese Cardiovascular: Regular Rate, Rhythm, No JVD Gastrointestinal: normal bowel sounds, non tender, soft, other (incisional hernia reduced) Extremity: Normal Inspection, Normal Range of Motion, Non Tender Neurologic/Psychiatric: Alert, Oriented x3 Skin: Normal Color, Warm/Dry Lymphatic: No Adenopathy Assessment/Plan Assessment/Plan Assessment/Plan Anemia - Hgb stable, 9.8 Dysphagia CHF exacerbation Acute on chronic renal failure HTN CAD Diabetes Gastritis GERD/ulcers Shingles Fall with right temporal laceration Loose black stools have resolved, Hgb stable Had previous barium swallow which was unremarkable, considering repeating if persistent dysphagia. Patient to sit up after eating/drinking. Continue to monitor labs transfuse prn prbc Continue PPI/carafate; If significant change in hgb, would consider repeating endoscopy, not needed at this time. Continue medical management. Called later to see patient, she had fall and has 2.4 cm laceration. Going to have ct head. Procedure: Right temporal area was prepped and draped and irrigated . Local anesthetic 1 mL injected and 2.4 cm area of skin was closed using 4-0 prolene in simple running fashion. Area was washed and dried sterile bandage applied. Supervisory-Addendum Brief Verification & Attestation Participated in pt care: history, MDM, physical Personally performed: exam, history, MDM, supervision of care Care discussed with: Medical Student Procedures: n/a Results interpretation: Verified all documentation Verification and Attestation of Medical Student E/M Service A medical student performed and documented this service in my presence. I reviewed and verified all information documented by the medical student and made modifications to such information, when appropriate. I personally performed the physical exam and medical decision making. Maryse Aguillon, Mar 19, 2020,12:56 MARIELY GRIJALVA MED STUDENT Mar 19, 2020 11:50 MARYSE AGUILLON DO Mar 19, 2020 12:56
--- NOTE | 2020-03-19 12:37 | Progress Note ---
Subjective Date Seen by a Provider: Mar 19, 2020 Time Seen by a Provider: 12:31 Subjective/Events-last exam Fwup acute diastolic CHF, melena, dysphagia, acute on chronic renal ins ufficiency, Hx of CAD, UTI. Today complains of possible thrush. Still complains of feeling like things getting stuck in her chest and episode of shortness of air but no dyspnea on exam. She had a fall this morning and struck the right side of her head--surgery has repaired the laceration. She states she was at the mirror with her walker and just fell through it. Objective Exam Vital Signs Date Time Temp Pulse Resp B/P (MAP) Pulse Ox O2 Delivery O2 Flow Rate FiO2 03/19/20 12:30 82 03/19/20 09:00 Nasal Cannula 2.00 03/19/20 07:00 74 03/19/20 06:42 160/58 (92) 03/19/20 05:26 35.6 64 20 184/77 (112) 98 Nasal Cannula 2.00 03/19/20 01:00 56 03/18/20 22:00 36.1 60 18 155/64 (94) 96 Nasal Cannula 2.00 03/18/20 21:59 Nasal Cannula 2.00 03/18/20 19:00 61 03/18/20 18:28 36.6 54 20 193/74 (113) 97 Nasal Cannula 2.00 I & O 03/19/20 07:00 Intake Total 1640 ml Output Total 1500 ml Balance 140 ml Capillary Refill : Less Than 3 Seconds General Appearance: No Apparent Distress HEENT: Other (tongue some white/brown coating) Neck: Supple Respiratory: Lungs Clear, Decreased Breath Sounds Cardiovascular: Regular Rate, Rhythm, Systolic Murmur Gastrointestinal: normal bowel sounds, non tender, soft Extremity: Non Tender, No Calf Tenderness, No Pedal Edema Neurologic/Psychiatric: Alert, Oriented x3 Skin: Other (right lateral forehead with laceration with stable intact and some hematoma) Results Lab Laboratory Tests 03/18/20 14:00: Urine Color YELLOW, Urine Clarity CLEAR, Urine pH 6.0, Urine Specific [place] 1.010L, Urine Protein NEGATIVE, Urine Glucose (UA) NEGATIVE, Urine Ketones NEGATIVE, Urine Nitrite NEGATIVE, Urine Bilirubin NEGATIVE, Urine Urobilinogen 0.2, Urine Leukocyte Esterase 1+H, Urine RBC (Auto) TRACE-L, Urine RBC 0-2, Urine WBC 10-25H, Urine Squamous Epithelial Cells 5-10, Urine Crystals NONE, Urine Bacteria FEWH, Urine Casts PRESENT, Urine Hyaline Casts 2-5H, Urine Mucus NEGATIVE, Urine Culture Indicated YES 03/18/20 16:14: Glucometer 115H 03/18/20 20:27: Glucometer 112H 03/19/20 04:47: White Blood Count 5.5, Red Blood Count 3.38L, Hemoglobin 9.8L, Hematocrit 32L, Mean Corpuscular Volume 94, Mean Corpuscular Hemoglobin 29, Mean Corpuscular Hemoglobin Concent 31L, Red Cell Distribution Width 16.7H, Platelet Count 267, Mean Platelet Volume 9.9, Sodium Level 139, Potassium Level 3.8, Chloride Level 99, Carbon Dioxide Level 31, Anion Gap 9, Blood Urea Nitrogen 33H, Creatinine 1.62H, Estimat Glomerular Filtration Rate 30, BUN/Creatinine Ratio 20, Glucose Level 91, Calcium Level 8.5, Corrected Calcium 9.3, Total Bilirubin 0.5, Aspartate Amino Transf (AST/SGOT) 23, Alanine Aminotransferase (ALT/SGPT) 14, Alkaline Phosphatase 39L, Total Protein 6.1L, Albumin 3.0L 03/19/20 05:26: Glucometer 94 03/19/20 11:50: Glucometer 140H Microbiology 03/18/20 Urine Culture - Preliminary, Resulted Proteus species Assessment/Plan Assessment/Plan Assess & Plan/Chief Complaint 1. Acute Diastolic CHF--medical management 2. Melena with Anemia--monitoring H/H and stools 3. Dysphagia--has had workup including barium swallow and EGD 4. Acute on Chronic Renal Insufficiency--monitor BUN/Cr 5. UTI--on meropenem 6. Thrush--add diflucan and nystatin 7. Anxiety/panic attacks--patient asking for lorazepam but does tell me that Dr. Bhakta doesn't really want her on this 8. Fall with right head trauma--surgery evaluated and repaired laceration, CT head negative, will do neurochecks and monitor Clinical Quality Measures DVT/VTE Risk/Contraindication: Risk Factor Score Per Nursin JESSICA HARRISON DO Mar 19, 2020 12:37
[2020-03-19] MEDS: fluCOnazole (DIFLUCAN) 100 MG TAB PO SCH (13:17)
[2020-03-19] MEDS: NYSTATIN ORAL SUSP 5 ML UDC PO SCH ×3 (13:17→23:54)
--- NOTE | 2020-03-19 13:47 | Diagnostic Imaging Report ---
INDICATION: Congestive failure COMPARISON: 03/16/2020 FINDINGS: The heart size is within normal limits. Vascular prominence is decreased. Pulmonary edema or pneumonia have improved. No effusion. No pneumothorax. IMPRESSION: Findings suggest improvements in sequelae of failure. No adverse change. Dictated by: Dictated on workstation # [id number]
[2020-03-19 18:16] VITALS: BP 125/58
--- NOTE | 2020-03-19 18:25 | Cardiology Progress Note ---
Cardiology SOAP Progress Note Subjective: no cardiac complaints Objective: I&O/Vital Signs 03/20/20 03/20/20 03/20/20 03/20/20 09:00 10:56 12:36 17:07 Temp 36.1 Pulse 60 58 Resp 18 B/P (MAP) 110/58 (75) Pulse Ox 91 96 O2 Delivery Nasal Cannula Nasal Cannula Nasal Cannula O2 Flow Rate 2.00 1.00 2.00 03/20/20 00:00 Intake Total 1580 ml Output Total 100 ml Balance 1480 ml Weight (Pounds): 190 Weight (Ounces): 8.3 Weight (Calculated Kilograms): [id number] Constitutional: AAO x 3 Respiratory: chest is bilaterally symmetric, lungs clear to auscultation Cardiovascular: regular rate-rhythm, S1 and S2 Gastrointestional: soft, audible bowel sounds Extremities: normal range of motion, non-tender, normal inspection, no lower extremity edema bilateral Neurologic/Psychiatric: no motor/sensory deficits, alert, normal mood/affect, oriented x 3 Results/Procedures: Labs Laboratory Tests 03/19/20 20:25: Glucometer 122H 03/20/20 02:07: Glucometer 102 03/20/20 05:18: Glucometer 90 03/20/20 10:42: Glucometer 116H 03/20/20 15:30: Glucometer 136H Microbiology 03/18/20 Urine Culture - Final, Complete Proteus mirabilis A/P: Assessment/Dx: Congestive heart failure, acute on chronic left ventricular diastolic dysfunct ion nonischemic cardiomyopathy Coronary artery disease Hypertension Hyperlipidemia Plan: Congestive heart failure, acute left ventricular diastolic dysfunction, last echo showed normal left ventricular systolic function EF 55-65 percent, grade 2 diastolic dysfunction, left atrial dilatation. Moderate aortic stenosis, valve area 1.2-1.6 cm, compensated at this time, feeling better. Continue to current medications. Orthostatic dizziness, generalized weakness, patient is having severe diarrhea and worsening anemia. Might not tolerate aggressive diuresis at this point. Continue to monitor. Diarrhea, reporting dark stool, questionable GI bleed, stool for occult blood positive. Underwent EGD last month showing gastritis and esophagitis. On Carafate and Protonix, C. diff negative. Acute on chronic renal insufficiency, chronic kidney disease stage III with diabetic nephropathy. Responding slowly to diuretic, cautious diuresis while monitoring renal function Hypertension, difficult to control. Intolerant to multiple medications, conitnue to monitor blood pressure at this time. Patient has been having orthostatic hypotension and dizziness. Coronary artery disease, had a cardiac catheterization done in August [address] Swift showing diffuse moderate coronary artery disease involving all her coronary system with 50 percent stenosis nonobstructive disease. Anemia, monitor H&H Diabetes mellitus, followed and managed by primary care physician History of recurrent UTI with multidrug resistance Degenerative joint disease History of intolerance to statin with intolerant to angiotensin receptor neeru Peripheral arterial disease bilateral peripheral angiography done with Dr. Monahan showing significant obstructive disease Mild bilateral carotid stenosis, continue to monitor as outpatient. Chronic pedal edema with history of chronic venous insufficiency History of urinary incontinence Thank you for your consultation. Please call me if you have any questions. Carrington Johnson MD, FACP, FACC, FSCAI, FHRS, CCDS Interventional Cardiology Cardiac Electrophysiology Vascular Medicine and Endovascular Interventions Brad JOHNSON MD Mar 19, 2020 18:25
--- NOTE | 2020-03-19 18:47 | NUR ---
CT CAME BACK NEGATIVE, PTS GRANDDAUGHTER, CHANELLE, NOTIFIED. PT HAS SAT IN RECLINER MOST OF THE AFTERNOON WATCHING TV. LACERATION SITE IS STARTING TO BRUISE AND SWELL MORE. PT DENIES PAIN THIS EVENING. NEURO CHECKS HAVE BEEN WNL.
[2020-03-19 20:33] VITALS: BP 143/67
[2020-03-19] MEDS: amLODIPine 5 MG (NORVASC) TAB PO SCH (20:34)
[2020-03-19] MEDS: MELATONIN 10 MG TABLET PO SCH (20:34)
[2020-03-19] MEDS: PATCH REMOVAL TP SCH (20:37)
[2020-03-20 02:25] VITALS: BP 142/64
--- NOTE | 2020-03-20 02:31 | NUR ---
0159- ICU MONITOR JAKE CALLED 4TH FLOOR INFORMATION SCIENTIST RUFINA AND INFORMED HER THAT 404 TELE INDICATED A-FLUTTER, PVC'S AND HEART RATE DROP TO 40'S. THIS RN WAS ABLE TO WAKE PT EASILY FROM SLEEP, PT DENIED ANY PAIN OR ABNORMAL SYMPTOMS. EKG PERFORMED, SHOWED SINUS RHYTHM WITH BORDERLINE PROLONGED QT INTERVAL, HEART RATE 57. ACCUCHECK RESULTED BLOOD SUGAR OF 102. 0225- VS TAKEN: BP 142/64, HR 58, 18 BPM, O2 96% 2L NC, TEMP 36.3. 0231- THIS RN CONTACTED DR TAVERA AND INFORMED HIM OF REPORT FROM ICU, EKG RESULTS, AND MOST RECENT VITALS. ADVISED HE WILL SEE PT IN AM, NO NEW ORDERS AT THIS TIME.
[2020-03-20 06:10] VITALS: BP 149/68
[2020-03-20] MEDS: CATHETER FLUSH 10 ML SYR IV SCH ×3 (06:16→21:31)
[2020-03-20] MEDS: MEROPENEM 500 MG in WATER (STERILE) FOR INJECTION 10 ML IV SCH ×3 (06:16→21:31)
[2020-03-20] MEDS: HYOSCYAMINE 0.125 MG (LEVSIN) TAB PO SCH ×3 (06:16→17:06)
[2020-03-20] MEDS: FUROSEMIDE 40 MG/4 ML INJ (LASIX) IV SCH (06:16)
[2020-03-20] MEDS: NYSTATIN ORAL SUSP 5 ML UDC PO SCH ×4 (06:16→23:54)
[2020-03-20] MEDS: SUCRALFATE 1 GM (CARAFATE) TAB PO SCH ×4 (06:16→21:30)
[2020-03-20] MEDS: LEVOTHYROXINE 125 MCG (LEVOTHROID) TABLET PO SCH (06:17)
[2020-03-20] MEDS: KCL 20 MEQ TAB (K-DUR) PO SCH (06:17)
--- NOTE | 2020-03-20 08:20 | Progress Note - Surgery ---
MARIELY GRIJALVA MED STUDENT 03/20/20 0820: Subjective Date Seen by a Provider: Mar 20, 2020 Time Seen by a Provider: 07:30 Subjective/Events-last exam Pt seen and examined. Sitting in up in bed eating breakfast, NAD. She says she has a slight headache from the fall/hitting her head yesterday, but otherwise no new complaints. Continues to complain of trouble swallowing/something stuck in her throat. Denies chest pain, N/V, abd pain. No bm for 2 days. Review of Systems General: No Chills HEENT: Head Aches Pulmonary: No Dyspnea Cardiovascular: No: Chest Pain, Palpitations, Lt Headedness Gastrointestinal: No: Nausea, Vomiting, Abdominal Pain Genitourinary: No Dysuria Objective Exam Vital Signs Date Time Temp Pulse Resp B/P (MAP) Pulse Ox O2 Delivery O2 Flow Rate FiO2 03/20/20 07:00 68 03/20/20 06:10 36.3 72 18 149/68 (95) 96 Nasal Cannula 2.00 03/20/20 02:25 36.3 58 18 142/64 (90) 96 Nasal Cannula 2.00 03/20/20 01:00 53 03/19/20 20:35 Nasal Cannula 2.00 03/19/20 20:33 143/67 (92) 03/19/20 19:00 54 03/19/20 18:16 36.2 56 16 125/58 (80) 96 Nasal Cannula 2.00 03/19/20 12:30 82 03/19/20 09:00 Nasal Cannula 2.00 I & O 03/20/20 07:00 Intake Total 1880 ml Output Total 550 ml Balance 1330 ml Capillary Refill : Less Than 3 Seconds General Appearance: No Apparent Distress, Chronically ill, Obese HEENT: PERRL/EOMI, Other Neck: Full Range of Motion, Normal Inspection, Non Tender, Supple Respiratory: Lungs Clear, No Accessory Muscle Use, No Respiratory Distress, Decreased Breath Sounds Cardiovascular: Regular Rate, Rhythm, No Gallop, No JVD, No Murmur, Other (moderate BLE edema) Gastrointestinal: normal bowel sounds, non tender, soft, other (2x reducible incisional hernias to abd) Extremity: Normal Inspection, Normal Range of Motion, Non Tender Neurologic/Psychiatric: Alert, Oriented x3, No Motor/Sensory Deficits, Normal Mood/Affect Skin: Normal Color, Warm/Dry Lymphatic: No Adenopathy Results Lab Laboratory Tests 03/19/20 11:50: Glucometer 140H 03/19/20 16:05: Glucometer 130H 03/19/20 20:25: Glucometer 122H 03/20/20 02:07: Glucometer 102 03/20/20 05:18: Glucometer 90 Microbiology 03/18/20 Urine Culture - Preliminary, Resulted Proteus mirabilis Assessment/Plan Assessment/Plan Assessment/Plan Anemia - Hgb stable, 9.8 yesterday Dysphagia CHF exacerbation Acute on chronic renal failure HTN CAD Diabetes Gastritis GERD/ulcers Shingles Fall with right temporal laceration - 03/19 Loose black stools have resolved, Hgb stable Had previous barium swallow which was unremarkable, considering repeating if persistent dysphagia. Patient to sit up after eating/drinking. CT showed no intracranial bleeding/compromise, laceration site w/o s/s infection Continue to monitor labs transfuse prn prbc Continue PPI/carafate; If significant change in hgb, would consider repeating endoscopy, not needed at this time. Continue medical management. Clinical Quality Measures DVT/VTE Risk/Contraindication: Risk Factor Score Per Nursin AGUILLONMARYSE JOHN DO 03/20/20 1337: Subjective Subjective/Events-last exam Patient slight headache from falling yesterday. She states the pain is tolerable. Patient sitting up eating breakfast. Still at times feels like she is getting stuff stuck again. She states nothing really is helping with this. She states that really seems to occur with pills. No new complaints. Denies any nausea vomiting abdominal pain fever sweats chills shortness of breath or chest pain at this time. Objective Exam General Appearance: No Apparent Distress, Chronically ill HEENT: PERRL/EOMI, Normal ENT Inspection, Other (Sutures right congregation area) Neck: Full Range of Motion, Non Tender, Supple Respiratory: Lungs Clear, No Accessory Muscle Use, No Respiratory Distress Cardiovascular: Regular Rate, Rhythm, No JVD, Other (moderate BLE edema) Gastrointestinal: non tender, soft, other (2x reducible incisional hernias to abd) Extremity: Normal Inspection, Normal Range of Motion, Non Tender Neurologic/Psychiatric: Alert, Oriented x3 Skin: Normal Color, Warm/Dry Lymphatic: No Adenopathy Assessment/Plan Assessment/Plan Assessment/Plan Anemia - Hgb stable, 9.8 yesterday Dysphagia CHF exacerbation Acute on chronic renal failure HTN CAD Diabetes Gastritis GERD/ulcers Shingles Fall with right temporal laceration - 03/19 Loose black stools have resolved, Hgb stable Had previous barium swallow which was unremarkable, will repea since persistent dysphagia. Patient to sit up after eating/drinking. CT showed no intracranial bleeding/compromise, laceration site w/o s/s infection Continue to monitor labs transfuse prn prbc Continue PPI/carafate; If significant change in hgb, would consider repeating endoscopy, not needed at this time. Continue medical management. Supervisory-Addendum Brief Verification & Attestation Participated in pt care: history, MDM, physical Personally performed: exam, history, MDM, supervision of care Care discussed with: Medical Student Procedures: n/a Results interpretation: Verified all documentation Verification and Attestation of Medical Student E/M Service A medical student performed and documented this service in my presence. I reviewed and verified all information documented by the medical student and made modifications to such information, when appropriate. I personally performed the physical exam and medical decision making. Maryse Aguillon, Mar 20, 2020,13:37 Verification and Attestation of Medical Student E/M Service A medical student performed and documented this service in my presence. I reviewed and verified all information documented by the medical student and made modifications to such information, when appropriate. I personally performed the physical exam and medical decision making. Maryse Aguillon, Mar 20, 2020,13:37 MARIELY GRIJALVA MED STUDENT Mar 20, 2020 08:20 MARYSE AGUILLON DO Mar 20, 2020 13:37
[2020-03-20] MEDS: ISOSORBIDE MONONITRATE 60 MG (IMDUR) TAB PO SCH (08:36)
[2020-03-20] MEDS: oxyCODONE/APAP 10/325MG (PERCOCET 10) TABLET PO PRN ×2 (08:36→14:25)
[2020-03-20] MEDS: fluCOnazole (DIFLUCAN) 100 MG TAB PO SCH (08:36)
[2020-03-20] MEDS: doxAzosin 2 MG (CARDURA) TAB PO SCH ×2 (08:36→21:30)
[2020-03-20] MEDS: meTOproloL SUCCINATE 50 MG (TOPROL XL) TAB PO SCH (08:36)
[2020-03-20] MEDS: LACTOBACILLUS ACIDOPHILUS (PROBIOTIC) CAPSULE PO SCH ×3 (08:36→17:05)
[2020-03-20] MEDS: ARTIFICAL TEARS 0.4 ML UNIT DOSE (REFRESH PLUS) OU SCH ×4 (08:37→21:30)
[2020-03-20] MEDS: LIDOCAINE 4% (SALONPAS) PATCH TOP SCH (08:39)
[2020-03-20] MEDS: PANTOPRAZOLE 40 MG (PROTONIX) TAB PO SCH ×2 (08:39→21:30)
[2020-03-20] MEDS ORDERED: LORATADINE (CLARITIN) 10 MG TAB PO ONE (09:30)
--- NOTE | 2020-03-20 09:41 | Progress Note ---
Subjective Date Seen by a Provider: Mar 20, 2020 Time Seen by a Provider: 09:36 Subjective/Events-last exam Fwup acute diastolic CHF, melena, dysphagia, acute on chronic renal ins ufficiency, Hx of CAD, UTI. In good spirits today. C/O allergies/RN. Objective Exam Vital Signs Date Time Temp Pulse Resp B/P (MAP) Pulse Ox O2 Delivery O2 Flow Rate FiO2 03/20/20 09:00 Nasal Cannula 2.00 03/20/20 07:00 68 03/20/20 06:10 36.3 72 18 149/68 (95) 96 Nasal Cannula 2.00 03/20/20 02:25 36.3 58 18 142/64 (90) 96 Nasal Cannula 2.00 03/20/20 01:00 53 03/19/20 20:35 Nasal Cannula 2.00 03/19/20 20:33 143/67 (92) 03/19/20 19:00 54 03/19/20 18:16 36.2 56 16 125/58 (80) 96 Nasal Cannula 2.00 03/19/20 12:30 82 I & O 03/20/20 07:00 Intake Total 1880 ml Output Total 550 ml Balance 1330 ml Capillary Refill : Less Than 3 Seconds General Appearance: No Apparent Distress Neck: Supple Respiratory: Decreased Breath Sounds, Rhonci Cardiovascular: Regular Rate, Rhythm, Systolic Murmur Gastrointestinal: normal bowel sounds, non tender, soft Extremity: Non Tender, No Calf Tenderness, No Pedal Edema Neurologic/Psychiatric: Alert, Oriented x3 Results Lab Laboratory Tests 03/19/20 11:50: Glucometer 140H 03/19/20 16:05: Glucometer 130H 03/19/20 20:25: Glucometer 122H 03/20/20 02:07: Glucometer 102 03/20/20 05:18: Glucometer 90 Microbiology 03/18/20 Urine Culture - Preliminary, Resulted Proteus mirabilis Assessment/Plan Assessment/Plan Assess & Plan/Chief Complaint 1. Acute Diastolic CHF--medical management 2. Melena with Anemia--monitoring H/H and stools 3. Dysphagia--has had workup including barium swallow and EGD 4. Acute on Chronic Renal Insufficiency--monitor BUN/Cr 5. UTI--on meropenem 6. Thrush--on diflucan and nystatin 7. Anxiety/panic attacks--patient better today 8. Fall with right head trauma--laceration healing well with less swelling 9. Allergic Rhinitis--start loratadine Clinical Quality Measures DVT/VTE Risk/Contraindication: Risk Factor Score Per Nursin JESSICA HARRISON DO Mar 20, 2020 09:41
[2020-03-20 17:07] VITALS: BP 110/58
[2020-03-20 21:29] VITALS: BP 151/55
[2020-03-20] MEDS: PATCH REMOVAL TP SCH (21:30)
[2020-03-20] MEDS: MELATONIN 10 MG TABLET PO SCH (21:30)
[2020-03-20] MEDS: amLODIPine 5 MG (NORVASC) TAB PO SCH (21:30)
[2020-03-21 05:16] LABS: HEMOGLOBIN 9.7 g/dL (11.5-16.0); MEAN PLATELET VOLUME 9.8 fL (9.0-12.2); WHITE BLOOD COUNT 5.8 10^3/uL (4.3-11.0)
[2020-03-21 05:42] LABS: ALBUMIN 3.3 GM/DL (3.2-4.5); BILIRUBIN,TOTAL 0.4 MG/DL (0.1-1.0); CALCIUM 8.8 MG/DL (8.5-10.1); CREATININE SERUM 1.86 MG/DL (0.60-1.30); POTASSIUM 3.6 MMOL/L (3.6-5.0); TOTAL PROTEIN 6.5 GM/DL (6.4-8.2)
[2020-03-21 06:09] VITALS: BP 150/71
[2020-03-21] MEDS: HYOSCYAMINE 0.125 MG (LEVSIN) TAB PO SCH ×3 (06:15→17:11)
[2020-03-21] MEDS: FUROSEMIDE 40 MG/4 ML INJ (LASIX) IV SCH (06:15)
[2020-03-21] MEDS: LEVOTHYROXINE 125 MCG (LEVOTHROID) TABLET PO SCH (06:15)
[2020-03-21] MEDS: MEROPENEM 500 MG in WATER (STERILE) FOR INJECTION 10 ML IV SCH ×2 (06:15→17:11)
[2020-03-21] MEDS: CATHETER FLUSH 10 ML SYR IV SCH ×3 (06:17→20:49)
[2020-03-21] MEDS: SUCRALFATE 1 GM (CARAFATE) TAB PO SCH ×4 (06:26→20:48)
[2020-03-21] MEDS: KCL 20 MEQ TAB (K-DUR) PO SCH (06:27)
[2020-03-21] MEDS: NYSTATIN ORAL SUSP 5 ML UDC PO SCH ×4 (06:41→23:40)
--- NOTE | 2020-03-21 07:01 | Progress Note - Surgery ---
MARIELY GRIJALVA MED STUDENT 03/21/20 0701: Subjective Date Seen by a Provider: Mar 21, 2020 Time Seen by a Provider: 06:15 Subjective/Events-last exam Pt seen and examined. She was sitting up in bed resting, NAD. She continues to have issues with swallowing, and refused her KCl and Carafate this morning because she wasn't able to get a pill down last night and vomited afterwards. No bm's for a few days but says that she feels like she'll have one today. No complaints of chest pain, abd pain, nausea. Review of Systems General: No Chills HEENT: No Head Aches Pulmonary: No Dyspnea Cardiovascular: No: Chest Pain, Palpitations, Lt Headedness Gastrointestinal: Vomiting (last night x1); No: Nausea, Abdominal Pain Genitourinary: No Dysuria Objective Exam Vital Signs Date Time Temp Pulse Resp B/P (MAP) Pulse Ox O2 Delivery O2 Flow Rate FiO2 03/21/20 06:09 36.4 58 18 150/71 (97) 95 Nasal Cannula 2.00 03/21/20 01:00 54 03/20/20 21:29 62 18 151/55 (87) 96 Nasal Cannula 2.00 03/20/20 20:11 Nasal Cannula 2.00 03/20/20 19:00 52 03/20/20 17:07 36.1 58 18 110/58 (75) 96 Nasal Cannula 2.00 03/20/20 12:36 60 03/20/20 10:56 91 Nasal Cannula 1.00 03/20/20 09:00 Nasal Cannula 2.00 03/20/20 07:00 68 I & O 03/21/20 07:00 Intake Total 1510 ml Output Total 1350 ml Balance 160 ml Capillary Refill : Less Than 3 Seconds General Appearance: No Apparent Distress, Chronically ill, Obese HEENT: PERRL/EOMI, Other (Sutures right taoism area) Neck: Full Range of Motion, Normal Inspection, Non Tender, Supple Respiratory: Chest Non Tender, Lungs Clear, No Accessory Muscle Use, No Respiratory Distress Cardiovascular: Regular Rate, Rhythm, No JVD, Other (moderate BLE edema) Gastrointestinal: non tender, soft, other (2x reducible incisional hernias to abd) Extremity: Normal Inspection, Normal Range of Motion, Non Tender Neurologic/Psychiatric: Alert, Oriented x3, Normal Mood/Affect Skin: Normal Color, Warm/Dry Lymphatic: No Adenopathy Results Lab Laboratory Tests 03/20/20 10:42: Glucometer 116H 03/20/20 15:30: Glucometer 136H 03/20/20 20:06: Glucometer 118H 03/21/20 04:20: White Blood Count 5.8, Red Blood Count 3.36L, Hemoglobin 9.7L, Hematocrit 31L, Mean Corpuscular Volume 93, Mean Corpuscular Hemoglobin 29, Mean Corpuscular Hemoglobin Concent 31L, Red Cell Distribution Width 16.2H, Platelet Count 278, Mean Platelet Volume 9.8 03/21/20 04:35: Sodium Level 137, Potassium Level 3.6, Chloride Level 96L, Carbon Dioxide Level 31, Anion Gap 10, Blood Urea Nitrogen 32H, Creatinine 1.86H, Estimat Glomerular Filtration Rate 26, BUN/Creatinine Ratio 17, Glucose Level 89, Calcium Level 8.8, Corrected Calcium 9.4, Total Bilirubin 0.4, Aspartate Amino Transf (AST/SGOT) 30, Alanine Aminotransferase (ALT/SGPT) 17, Alkaline Phosphatase 39L, Total Protein 6.5, Albumin 3.3 03/21/20 06:08: Glucometer 88 Microbiology 03/18/20 Urine Culture - Final, Complete Proteus mirabilis Assessment/Plan Assessment/Plan Assessment/Plan Anemia - Hgb stable, 9.7 Dysphagia CHF exacerbation Acute on chronic renal failure HTN CAD Diabetes Gastritis GERD/ulcers Shingles Fall with right temporal laceration - 03/19 Loose black stools have resolved, Hgb stable Had previous barium swallow which was unremarkable, will repeat since persistent dysphagia. Patient to sit up after eating/drinking. Head CT showed no intracranial bleeding/compromise, laceration site w/o s/s infe ction Continue to monitor labs transfuse prn prbc Continue PPI/carafate; If significant change in hgb, would consider repeating endoscopy, not needed at this time. Continue medical management. Clinical Quality Measures DVT/VTE Risk/Contraindication: Risk Factor Score Per Nursin MARYSE AGUILLON DO 03/21/20 1510: Subjective Subjective/Events-last exam Sitting up in chair. Still with swallowing difficulty. Feels that food/pill staying in esophagus. No abdominal pain, its better. Denies fever sweats chills shortness of breath or chest pain. Objective Exam General Appearance: No Apparent Distress, Chronically ill HEENT: PERRL/EOMI Neck: Full Range of Motion, Non Tender, Supple Respiratory: Chest Non Tender, No Accessory Muscle Use, No Respiratory Distress Cardiovascular: Regular Rate, Rhythm, No JVD, Other (moderate BLE edema) Gastrointestinal: non tender, soft, other (2x reducible incisional hernias to abd) Extremity: Normal Inspection, Normal Range of Motion, Non Tender Neurologic/Psychiatric: Alert, Oriented x3, Normal Mood/Affect Skin: Normal Color, Warm/Dry Lymphatic: No Adenopathy Assessment/Plan Assessment/Plan Assessment/Plan Anemia - Hgb stable, 9.7 Dysphagia CHF exacerbation Acute on chronic renal failure HTN CAD Diabetes Gastritis GERD/ulcers Shingles Fall with right temporal laceration - 03/19 Loose black stools have resolved, Hgb stable Had previous barium swallow which was unremarkable, will repeat since persistent dysphagia. Patient to sit up after eating/drinking. Head CT showed no intracranial bleeding/compromise, laceration site w/o s/s infection Continue to monitor labs transfuse prn prbc Continue PPI/carafate; If significant change in hgb, would consider repeating endoscopy, not needed at this time. Continue medical management. Barium swallow showing esophageal dysmotility, would consider trial of peppermint oil or calcium channel neeru such as diltiazem Supervisory-Addendum Brief Verification & Attestation Participated in pt care: history, MDM, physical Personally performed: exam, history, MDM, supervision of care Care discussed with: Medical Student Procedures: n/a Results interpretation: Verified all documentation Verification and Attestation of Medical Student E/M Service A medical student performed and documented this service in my presence. I reviewed and verified all information documented by the medical student and made modifications to such information, when appropriate. I personally performed the physical exam and medical decision making. Maryse Aguillon, Mar 21, 2020,15:10 MARIELY GRIJALVA MED STUDENT Mar 21, 2020 07:01 MARYSE AGUILLON DO Mar 21, 2020 15:10
--- NOTE | 2020-03-21 08:06 | Progress Note - Cardiology ---
Cardiology SO Progress Note Objective: I&O/Vital Signs Weight (Pounds): 190 Weight (Ounces): 8.3 Weight (Calculated Kilograms): 86.222223 Constitutional: AAO x 3 Respiratory: chest is bilaterally symmetric, lungs clear to auscultation Cardiovascular: regular rate-rhythm, S1 and S2 Gastrointestional: soft, audible bowel sounds Extremities: normal range of motion, non-tender, normal inspection, no lower extremity edema bilateral Neurologic/Psychiatric: no motor/sensory deficits, alert, normal mood/affect, oriented x 3 Results/Procedures: Labs Microbiology 03/18/20 Urine Culture - Final, Complete Proteus mirabilis A/P: Assessment: Congestive heart failure, acute left ventricular diastolic dysfunction, last echo showed normal left ventricular systolic function EF 55-65 percent, grade 2 diastolic dysfunction, left atrial dilatation. Moderate aortic stenosis, valve area 1.2-1.6 cm, compensated at this time, feeling better. Continue to current medications. Orthostatic dizziness, generalized weakness, patient is having severe diarrhea and worsening anemia. Might not tolerate aggressive diuresis at this point. Continue to monitor. Diarrhea, reporting dark stool, questionable GI bleed, stool for occult blood positive. Underwent EGD last month showing gastritis and esophagitis. On Carafate and Protonix, C. diff negative. Acute on chronic renal insufficiency, chronic kidney disease stage III with diabetic nephropathy. Responding slowly to diuretic, cautious diuresis while monitoring renal function Hypertension, difficult to control. Intolerant to multiple medications, conitnue to monitor blood pressure at this time. Patient has been having orthostatic hypotension and dizziness. Coronary artery disease, had a cardiac catheterization done in August [address] Swift showing diffuse moderate coronary artery disease involving all her coronary system with 50 percent stenosis nonobstructive disease. Anemia, monitor H&H Diabetes mellitus, followed and managed by primary care physician History of recurrent UTI with multidrug resistance Degenerative joint disease History of intolerance to statin with intolerant to angiotensin receptor neeru Peripheral arterial disease bilateral peripheral angiography done with Dr. Monahan showing significant obstructive disease Mild bilateral carotid stenosis, continue to monitor as outpatient. Chronic pedal edema with history of chronic venous insufficiency History of urinary incontinence BENJI LESLIE Mar 21, 2020 08:06
--- NOTE | 2020-03-21 08:17 | Progress Note ---
Subjective Subjective Date Seen by Provider: Mar 21, 2020 Time Seen by Provider: 08:14 Pt had a fall over the weekend, but CT of head was negative. Had a laceration to her right religious that was sutured by Dr. Aguillon. Pt notes no BM's in a couple of days and is still having trouble swallowing. WBC is 5.8, hgb 9.7, creatinine 1.86. Review of Systems General: No Chills HEENT: No Head Aches Pulmonary: No Dyspnea Cardiovascular: No: Chest Pain, Palpitations, Lt Headedness Gastrointestinal: Vomiting (last night x1), Abdominal Pain; No: Nausea Genitourinary: No Dysuria Neurological: No: Weakness, Numbness All Other Systems Reviewed All Other Systems Reviewed: Yes Objective Exam Vital Signs Vital Signs - First Documented 03/18/20 03/18/20 11:56 12:00 Temp 36.1 Pulse 55 Resp 20 B/P (MAP) 140/95 (110) Pulse Ox 99 O2 Delivery Nasal Cannula O2 Flow Rate 3.00 Capillary Refill : Less Than 3 Seconds General Appearance: No Apparent Distress, Chronically ill, Obese Eyes: Bilateral Eye Normal Inspection, Bilateral Eye EOMI HEENT: PERRL/EOMI, Other (Sutures to right religious area; some thrush on the t ongue; periorbital ecchymosis to right eye) Neck: Normal Inspection, Supple Respiratory: Chest Non Tender, No Accessory Muscle Use, No Respiratory Distress, Other (mild crackles throughout) Cardiovascular: Regular Rate, Rhythm, No JVD, Other (moderate BLE edema) Gastrointestinal: Soft; No Guarding, No Rebound; Tenderness (epigastric) Rectal: Deferred Extremity: Normal Inspection, Non Tender Neurologic/Psychiatric: Alert, Oriented x3, No Motor/Sensory Deficits, Normal Mood/Affect Skin: Normal Color, Warm/Dry Lymphatic: No Adenopathy Results Lab Laboratory Tests 03/20/20 10:42: Glucometer 116H 03/20/20 15:30: Glucometer 136H 03/20/20 20:06: Glucometer 118H 03/21/20 04:20: White Blood Count 5.8, Red Blood Count 3.36L, Hemoglobin 9.7L, Hematocrit 31L, Mean Corpuscular Volume 93, Mean Corpuscular Hemoglobin 29, Mean Corpuscular Hemoglobin Concent 31L, Red Cell Distribution Width 16.2H, Platelet Count 278, Mean Platelet Volume 9.8 03/21/20 04:35: Sodium Level 137, Potassium Level 3.6, Chloride Level 96L, Carbon Dioxide Level 31, Anion Gap 10, Blood Urea Nitrogen 32H, Creatinine 1.86H, Estimat Glomerular Filtration Rate 26, BUN/Creatinine Ratio 17, Glucose Level 89, Calcium Level 8.8, Corrected Calcium 9.4, Total Bilirubin 0.4, Aspartate Amino Transf (AST/SGOT) 30, Alanine Aminotransferase (ALT/SGPT) 17, Alkaline Phosphatase 39L, Total Protein 6.5, Albumin 3.3 03/21/20 06:08: Glucometer 88 Microbiology 03/18/20 Urine Culture - Final, Complete Proteus mirabilis Assessment/Plan Assessment/Plan Assessment and Plan CHF exacerbation -Lasix -monitor potassium Melena with anemia -monitoring labs and stools Dysphagia -symptoms unimproved, will do barium swallow today Acute on Chronic Renal Insufficiency -monitor BUN/Creatinine UTI -culture shows Proteus mirabilis -on meropenem Thrush -on diflucan and nystatin Fall with right head trauma -laceration healing well Allergic Rhinitis -loratadine Clinical Quality Measures DVT/VTE Risk/Contraindication: Risk Factor Score Per Nursin Supervisory-Addendum Brief Verification & Attestation Participated in pt care: history, MDM, physical Personally performed: exam, history, MDM, supervision of care Care discussed with: Medical Student Procedures: n/a Results interpretation: Verified all documentation I HAVE PERSONALLY EXAMINED THE PATIENT AND AGREE WITH STUDENT DOCUMENTATION. CHF EXACERBATION - SYMPTOMS STABLE ON CURRENT REGIMEN - CONTINUE WITH CARDIOLOGY EVAL/RECS ANEMIA - STABLE, MONITOR LABS DYSPHAGIA ACUTE ON CHRONIC RENAL INSUFFICIENCY - IMPROVED URINARY TRACT INFECTION - ON MEROPENEM THRUSH - ON NYSTATIN FALL WITH HEAD TRAUMA - FELL IN ROOM - LACERATION TREATED BY SURGERY - WILL NEED SUTURES OUT IN 7 - 10 DAYS ALLERGIES WEAKNESS - WILL CONTINUE WITH THERAPY ON DISCHARGE WITH HOME HEALTH TO HER DTR'S HOME ELLYN VILLALOBOS STUDENT Mar 21, 2020 08:17 HIRAL WOLF MD Mar 21, 2020 21:00
[2020-03-21] MEDS ORDERED: BARIUM for suspension 98% w/w (Vanilla Silq High Density) PO ONE (09:00)
[2020-03-21] MEDS ORDERED: BARIUM for suspension 96% w/w (Vanilla Silq Medium Density) PO ONE (09:00)
[2020-03-21 09:30] VITALS: BP 151/65
--- NOTE | 2020-03-21 09:43 | Physical Therapy Evaluation ---
PT Evaluation-General Medical Diagnosis Admission Date Mar 18, 2020 at 11:05 Medical Diagnosis: CHF, UTI Onset Date: Mar 14, 2020 Therapy Diagnosis Therapy Diagnosis: debility/weakness Height/Weight Height (Feet): 5 Height (Inches): 3.00 Weight (Pounds): 190 Weight (Ounces): 8.3 Precautions Precautions/Isolations: Fall Prevention, Standard Precautions Referral Physician: Yony Reason for Referral: Evaluation/Treatment Medical History Pertinent Medical History: CAD, DM, HTN Additional Medical History ED on 03/14/20 with SOA and bilateral LE edema Current History SWB status and s/p fall in BR resulting in head laceration. Reviewed History: Yes Social History Home: Assisted Living ([facility]) Prior Prior Level of Function SCALE: Activities may be completed with or without assistive devices. 1-Twdzynykpf-psgyyhc completes the activity by him/herself with no assistance from a helper. 5-Set-up or Clean-up Assistance-helper sets up or cleans up; patient completes activity. [place] assists only prior to or following the activity. 4-Supervision or Touching Assistance-helper provides verbal cues and/or touching/steadying and/or contact guard assistance as patient completes activity. Assistance may be provided throughout the activity or intermittently. 3-Partial/Moderate Assistance-helper does LESS THAN HALF the effort. [place] lifts, holds or supports trunk or limbs, but provides less than half the effort. 2-Substantial/Maximal Assistance-helper does MORE THAN HALF the effort. [place] lifts or holds trunk or limbs and provides more than half the effort. 4-Dzusgondl-raoqga does ALL the effort. Patient does none of the effort to complete the activity. Or, the assistance of 2 or more helpers is required for the patient to complete the activity. If activity was not attempted, code reason: 7-Patient Refused. 9-Not Applicable-not attempted and the patient did not perform the activity before the current illness, exacerbation or injury. 10-Not Attempted due to Environmental Limitations-(lack of equipment, weather restraints, etc.). 88-Not Attempted due to Medical Conditions or Safety Concerns. Bed Mobility: 6 Transfers (B,C,W/C): 6 Gait: 6 Stairs: 9 Indoor Mobility (Ambulation): Independent Stairs: Not Applicalbe Prior Devices Use: Walker PT Evaluation-Current Subjective Patient reluctantly agrees to PT. Objective Patient Orientation: Normal For Age Attachments: Oxygen, IV ROM/Strength ROM Lower Extremities bilateral LE WFL Strength Lower Extremities 4-/5 grossly bilateral LE all planes Integumentary/Posture Integumentary refer to nursing notes Bowel Incontinence: No Bladder Incontinence: No Posture WFL Neuromuscular (Tone, Coordination, Reflexes) grossly intact Sensory Vision: Functional Hearing: Impaired Hand Dominance: Right Transfers Roll Left & Right (QC): 5 Sit to Lying (QC): 4 Lying to Sitting/Side of Bed(Q: 4 Sit to Stand (QC): 4 Chair/Btm-le-Gfiop Xfer(QC): 4 Toilet Transfer (QC): 4 Car Transfer (QC): 4 (simulated) Gait Does the Patient Walk?: Yes Mode of Locomotion: Walk Anticipated Mode of Locomotion: Walk Walk 10 feet (QC): 4 Walk 50 ft with 2 Turns(QC): 4 Walk 150 ft (QC): 4 Walking 10ft/uneven surface-QC: 4 Gait Assistive Device: FWW Comments/Gait Description safe and functional with no deviation Wheelchair Training Does the Pt Use a Wheelchair?: No Wheel 50 ft with 2 turns (QC): 9 Wheel 150 ft (QC): 9 Stairs 1 Step (curb) (QC): 9 4 Steps (QC): 9 12 Steps (QC): 9 Balance Sitting Static: Normal Sitting Dynamic: Normal Standing Static: Normal Standing Dynamic: Normal Picking up an Object (QC): 5 (in seated position) Treatment Ambulated in room 150' with FWW SBA. Patient c/o of SOA, however, is asymptomatic. O2 in place Assessment/Needs 84 y.o. female,will be seen short term by skilled PT to address functional stren gth and mobility to ensure safe return to [place] at maximum LOF. Rehab Potential: Fair PT Senior Living Goals Senior Living Goals PT Television Announcer Goals Time Frame: Apr 02, 2020 Roll Left & Right (QC): 6 Sit to Lying (QC): 6 Lying-Sitting on Side/Bed(QC): 6 Sit to Stand (QC): 6 Chair/Dna-wk-Cmepg Xfer(QC): 6 Toilet Transfer (QC): 6 Car Transfer (QC): 6 Does the Patient Walk: Yes Walk 10 feet (QC): 6 Walk 50ft with 2 Turns (QC): 6 Walk 150 ft (QC): 6 Walking 10ft on Uneven Surface: 6 1 Step (curb) (QC): 9 4 Steps (QC): 9 12 Steps (QC): 9 Picking up an Object (QC): 6 Wheel 50 feet with 2 turns (QC: 9 Wheel 150 feet: 9 PT Plan Problem List Problem List: Activity Tolerance Treatment/Plan Treatment Plan: Continue Plan of Care Treatment Plan: Bed Mobility, Education, Functional Activity Neelima, Functional Strength, Gait, Safety, Therapeutic Exercise, Transfers Treatment Duration: Apr 02, 2020 Frequency: 6 times per week Estimated Hrs Per Day: .5 hour per day Patient and/or Family Agrees t: Yes Time/GCodes Time In: 820 Time Out: 850 Total Billed Treatment Time: 30 Total Billed Treatment 1 visit EVModC 14 min FA 16 min MARICARMEN EPSTEIN PT Mar 21, 2020 09:42
[2020-03-21] MEDS: LIDOCAINE 4% (SALONPAS) PATCH TOP SCH (09:53)
[2020-03-21] MEDS: LACTOBACILLUS ACIDOPHILUS (PROBIOTIC) CAPSULE PO SCH ×3 (09:53→18:04)
[2020-03-21] MEDS: ARTIFICAL TEARS 0.4 ML UNIT DOSE (REFRESH PLUS) OU SCH ×4 (09:53→20:49)
[2020-03-21] MEDS: LORATADINE (CLARITIN) 10 MG TAB PO SCH (09:54)
[2020-03-21] MEDS: fluCOnazole (DIFLUCAN) 100 MG TAB PO SCH (09:54)
[2020-03-21] MEDS: ISOSORBIDE MONONITRATE 60 MG (IMDUR) TAB PO SCH (09:54)
[2020-03-21] MEDS: PANTOPRAZOLE 40 MG (PROTONIX) TAB PO SCH ×2 (09:54→20:49)
[2020-03-21] MEDS: doxAzosin 2 MG (CARDURA) TAB PO SCH ×2 (09:54→20:48)
[2020-03-21] MEDS: meTOproloL SUCCINATE 50 MG (TOPROL XL) TAB PO SCH (09:54)
--- NOTE | 2020-03-21 10:30 | NUR ---
CM DISCHARGE PLANNING: Patient will discharge home with her daughter Patty when she has finished her hospital course. She will need HHC at discharge per Dr. Bhakta for Nursing (VS monitoring et wound care/laceration to head), Physical Therapy, and Occupational Therapy. Nargis Brambila has elected [facility] for their provider. Explored [facility] availability over ; if patient discharges home on the the [facility] will be able to open her case on the ; if patient discharges home on the then they will open her case on the . Updated Patty with this information. Also visited with Mariann at [facility] where the patient normally resides on the assisted living side. Daughter Patty and Mariann will make contact and visit about if the patient will come back to them skilled for short term therapies with transition back to CUSTODIAL vs directly to the CUSTODIAL side. [facility] will need finalized HHC before they can process but will be able to take her on service at discharge. Contact will be nargis Barmbila [phone]. Patient will be staying at aPtty's address [address] [place] [address].
--- NOTE | 2020-03-21 12:04 | Occupational Ther Daily Note ---
OT Current Status-Daily Note Subjective Pt alert, in bathroom with nrsg. Pt agrees to therapy. No c/o pain. Mental Status/Objective Patient Orientation: Person, Place, Time Attachments: IV, Oxygen ADL-Treatment Close SBA for safety with ambulation and transfers. Pt able to manipulate clothing and cleanse self with CGA. After set up, pt able to complete sponge bath sitting on toilet. Unable to bathe feet, able to complete all other areas with SBA. Pt able to thread L foot into briefs then required assist to thread R foot. Stated that pt used principal biostatistician at home to complete lower body dressing. Pt stated that her principal biostatistician was broken and needed new principal biostatistician. Pt able to complete bed mobility by self using bedrails. Set up for oral care. After session, pt lying in bed with call light/phone in reach. Bed alarm activated. Therapy Code Descriptions/Definitions Functional [place] Measure: 0=Not Assessed/NA 4=Minimal Assistance 1=Total Assistance 5=Supervision or Setup 2=Maximal Assistance 6=Modified [place] 3=Moderate Assistance 7=Complete IndependenceSCALE: Activities may be completed with or without assistive devices. 2-Jryvpkbvwc-rvzzxsf completes the activity by him/herself with no assistance from a helper. 5-Set-up or Clean-up Assistance-helper sets up or cleans up; patient completes activity. [place] assists only prior to or following the activity. 4-Supervision or Touching Assistance-helper provides verbal cues and/or touching/steadying and/or contact guard assistance as patient completes activity. Assistance may be provided throughout the activity or intermittently. 3-Partial/Moderate Assistance-helper does LESS THAN HALF the effort. [place] lifts, holds or supports trunk or limbs, but provides less than half the effort. 2-Substantial/Maximal Assistance-helper does MORE THAN HALF the effort. [place] lifts or holds trunk or limbs and provides more than half the effort. 3-Fmetzgbjn-kaihnr does ALL the effort. Patient does none of the effort to complete the activity. Or, the assistance of 2 or more helpers is required for the patient to complete the activity. If activity was not attempted, code reason: 7-Patient Refused. 9-Not Applicable-not attempted and the patient did not perform the activity before the current illness, exacerbation or injury. 10-Not Attempted due to Environmental Limitations-(lack of equipment, weather restraints, etc.). 88-Not Attempted due to Medical Conditions or Safety Concerns. Oral Hygiene (QC): 5 Shower/Bathe Self (QC): 3 Lower Body Dressing (QC): 3 Toileting Hygiene (QC): 4 Toilet Transfer (QC): 4 OT Immunopathologist Goals Immunopathologist Goals Time Frame: Mar 30, 2020 Eating (QC): 6 Oral Hygiene (QC): 6 Toileting Hygiene (QC): 6 Shower/Bathe Self (QC): 6 Upper Body Dressing (QC): 6 Lower Body Dressing (QC): 6 On/Off Footwear (QC): 6 Additional Goals: 1-Demonstrate ADL Tasks, 2-Verbalize Understanding, 3-ImproveStrength/Neelima 1=Demonstrate adherence to instructed precautions during ADL tasks. 2=Patient will verbalize/demonstrate understanding of assistive devices/modifications for ADL. 3=Patient will improve strength/tolerance for activity to enable patient to perform ADL's. OT Education/Plan Problem List/Assessment Assessment: Decreased Safety Aware, Impaired Self-Care Skills Pt would benefit from short term skilled OT in order to maximize LOF for safe return home to [facility]. Discharge Recommendations Plan/Recommendations: Continue POC Equpiment Recommendations-D/C: Supervisor Rework, Hip Kit Treatment Plan/Plan of Care Patient would benefit from OT for education, treatment and training to promote independence in ADL's, mobility, safety and/or upper extremity function for ADL's. Plan of Care: ADL Retraining, Functional Mobility, UE Funct Exercise/Act Treatment Duration: Mar 30, 2020 Frequency: 5 times per week Estimated Hrs Per Day: .25 hour per day Agreement: Yes Rehab Potential: Fair Time/GCodes Start Time: 11:22 Stop Time: 11:45 Total Time Billed (hr/min): 23 Billed Treatment Time 1 visit-ADL 2 (23 min) RADHIKA VARGAS Mar 21, 2020 12:04
--- NOTE | 2020-03-21 13:31 | Diagnostic Imaging Report ---
INDICATION: Dysphagia. Patient ingested effervescent crystals as well as thin and thick barium and imaging of the esophagus was performed. Total 51 seconds of fluoroscopic time was utilized. Preliminary radiograph abdomen demonstrates elevation right hemidiaphragm. The esophagus does show diffuse tertiary contractions consistent with generalized esophageal dysmotility. No mass or strictures identified. No gastroesophageal reflux or hiatal hernia was demonstrated. IMPRESSION: Generalized esophageal dysmotility. No other significant abnormality is detected. Dictated by: Dictated on workstation # [id number]
--- NOTE | 2020-03-21 13:51 | NUR ---
OT INFORMED THIS RN THAT PATIENT NEEDS A NEW SUPERINTENDENT MEASUREMENT AT HOME DUE TO HERS BEING BROKEN. OT INFORMED THIS WOULD BE OUT OF POCKET COST.
--- NOTE | 2020-03-21 18:16 | Progress Note - Cardiology ---
Cardiology SOAP Progress Note Subjective: No cp or palp or syncope or shortness of breath No n/v Gen weakness Objective: I&O/Vital Signs 03/21/20 03/21/20 03/21/20 03/21/20 06:09 07:00 07:19 09:30 Temp 36.4 Pulse 58 52 61 Resp 18 B/P (MAP) 150/71 (97) 151/65 (93) Pulse Ox 95 95 O2 Delivery Nasal Cannula Nasal Cannula O2 Flow Rate 2.00 1.00 03/21/20 13:19 Pulse 63 03/21/20 00:00 Intake Total 1210 ml Output Total 875 ml Balance 335 ml Weight (Pounds): 190 Weight (Ounces): 8.3 Weight (Calculated Kilograms): 86.169396 Constitutional: AAO x 3 Respiratory: chest is bilaterally symmetric, lungs clear to auscultation Cardiovascular: regular rate-rhythm, S1 and S2 Gastrointestional: soft; No tenderness; audible bowel sounds Extremities: No clubbing, No cyanosis; no lower extremity edema bilateral Neurologic/Psychiatric: oriented x 3, other (move all her limbs equally) Skin: No rash on exposed areas, No ulcerations on exposed areas Results/Procedures: Labs Laboratory Tests 03/20/20 20:06: Glucometer 118H 03/21/20 04:20: White Blood Count 5.8, Red Blood Count 3.36L, Hemoglobin 9.7L, Hematocrit 31L, Mean Corpuscular Volume 93, Mean Corpuscular Hemoglobin 29, Mean Corpuscular Hemoglobin Concent 31L, Red Cell Distribution Width 16.2H, Platelet Count 278, Mean Platelet Volume 9.8 03/21/20 04:35: Sodium Level 137, Potassium Level 3.6, Chloride Level 96L, Carbon Dioxide Level 31, Anion Gap 10, Blood Urea Nitrogen 32H, Creatinine 1.86H, Estimat Glomerular Filtration Rate 26, BUN/Creatinine Ratio 17, Glucose Level 89, Calcium Level 8.8, Corrected Calcium 9.4, Total Bilirubin 0.4, Aspartate Amino Transf (AST/SG OT) 30, Alanine Aminotransferase (ALT/SGPT) 17, Alkaline Phosphatase 39L, Total Protein 6.5, Albumin 3.3 03/21/20 06:08: Glucometer 88 03/21/20 11:27: Glucometer 100 03/21/20 15:56: Glucometer 113H Microbiology 03/18/20 Urine Culture - Final, Complete Proteus mirabilis Laboratory Tests 03/21/20 04:20 03/21/20 04:35 A/P: Assessment: Ac HFpEF. Echo of 03/16/20 (Dr Gambino): LVEF 55-65 percent, grade 2 diastolic dysfunction, left atrial dilatation, moderate aortic stenosis, valve area 1.2- 1.6 cm DAVID-3 on CKD-3 Orthostatic dizziness, improved Diarrhea, reporting dark stool, questionable GI bleed, stool for occult blood positive. Underwent EGD last month showing gastritis and esophagitis Hypertension. Control difficult because of postural symptoms suggestive of postural hypotension CAD. Cath August 2019: diffuse moderate coronary artery disease involving all her coronary system Anemia, etiology undetermined, managed by the Hospitalist Ivette Diabetes mellitus, managed by the Hospitalist Ivette History of recurrent UTI with multidrug resistance Degenerative joint disease Intolerance to statin and ARB H/o PAD, but no current claudication Mild bilateral carotid stenosis, by history H/o chronic pedal edema with history of chronic venous insufficiency History of urinary incontinence Plan: * Continue current regimen * Monitor labs * Reduce diuretics if evidence of prerenal azotemia JENNIFER PITTMAN MD FACP FAC CCDS Mar 21, 2020 18:16
[2020-03-21 18:18] VITALS: BP 152/67
--- NOTE | 2020-03-21 18:22 | NUR ---
DR. WOLF ON FLOOR AND THIS RN ASKED IF NEURO CHECKS COULD BE COMPLETED. DR. WOLF GAVE VERBAL ORDER TO STOP NEURO CHECKS.
[2020-03-21] MEDS: amLODIPine 5 MG (NORVASC) TAB PO SCH (20:49)
[2020-03-21] MEDS: MELATONIN 10 MG TABLET PO SCH (20:49)
[2020-03-21] MEDS: PATCH REMOVAL TP SCH (20:50)
[2020-03-22 06:03] VITALS: BP 169/77
[2020-03-22] MEDS: KCL 20 MEQ TAB (K-DUR) PO SCH (06:08)
[2020-03-22] MEDS: SUCRALFATE 1 GM (CARAFATE) TAB PO SCH ×4 (06:08→20:27)
[2020-03-22] MEDS: LEVOTHYROXINE 125 MCG (LEVOTHROID) TABLET PO SCH (06:08)
[2020-03-22] MEDS: HYOSCYAMINE 0.125 MG (LEVSIN) TAB PO SCH ×3 (06:08→16:56)
[2020-03-22] MEDS: FUROSEMIDE 40 MG/4 ML INJ (LASIX) IV SCH (06:09)
[2020-03-22] MEDS: NYSTATIN ORAL SUSP 5 ML UDC PO SCH ×4 (06:09→23:37)
[2020-03-22] MEDS: CATHETER FLUSH 10 ML SYR IV SCH ×3 (06:10→20:28)
[2020-03-22] MEDS: MEROPENEM 500 MG in WATER (STERILE) FOR INJECTION 10 ML IV SCH ×2 (06:10→18:18)
--- NOTE | 2020-03-22 07:19 | Progress Note - Surgery ---
MARIELY GRIJALVA MED STUDENT 03/22/20 0719: Subjective Date Seen by a Provider: Mar 22, 2020 Time Seen by a Provider: 06:15 Subjective/Events-last exam Pt seen and examined. She was resting in bed, NAD. Continues to have sensation of something stuck in her throat. Denies chest pain, N/V, SOB. Mild epigastric discomfort with deep breaths. No questions/concerns this morning. Review of Systems General: No Chills HEENT: No Head Aches Pulmonary: No Dyspnea Cardiovascular: No: Chest Pain, Palpitations, Lt Headedness Gastrointestinal: Abdominal Pain (mild epigastric discomfort); No: Nausea, Vomiting Genitourinary: No Dysuria Objective Exam Vital Signs Date Time Temp Pulse Resp B/P (MAP) Pulse Ox O2 Delivery O2 Flow Rate FiO2 03/22/20 06:03 36.4 57 20 169/77 (107) 93 Nasal Cannula 0.50 03/22/20 01:00 57 03/21/20 20:30 Nasal Cannula 1.00 03/21/20 20:30 Nasal Cannula 1.00 03/21/20 19:00 60 03/21/20 18:18 36.8 57 18 152/67 (95) 92 Nasal Cannula 0.50 03/21/20 13:19 63 03/21/20 09:30 61 151/65 (93) 03/21/20 09:00 Nasal Cannula 1.00 03/21/20 07:19 95 Nasal Cannula 1.00 I & O 03/22/20 07:00 Intake Total 1940 ml Output Total 950 ml Balance 990 ml Capillary Refill : Less Than 3 Seconds General Appearance: No Apparent Distress, Chronically ill, Obese HEENT: PERRL/EOMI, Other (Sutures to right congregational area; some thrush on the tongue; periorbital ecchymosis to right eye) Neck: Normal Inspection, Non Tender, Supple Respiratory: Chest Non Tender, No Accessory Muscle Use, No Respiratory Distress, Other (mild crackles throughout) Cardiovascular: Regular Rate, Rhythm, No JVD, Other (moderate BLE edema) Gastrointestinal: non tender, soft, other (2x reducible incisional hernias to abd) Extremity: Normal Inspection, Non Tender Neurologic/Psychiatric: Alert, Oriented x3, No Motor/Sensory Deficits, Normal Mood/Affect Skin: Normal Color, Warm/Dry Lymphatic: No Adenopathy Results Lab Laboratory Tests 03/21/20 11:27: Glucometer 100 03/21/20 15:56: Glucometer 113H 03/21/20 20:57: Glucometer 122H 03/22/20 05:36: Glucometer 102 Microbiology 03/18/20 Urine Culture - Final, Complete Proteus mirabilis Assessment/Plan Assessment/Plan Assessment/Plan Anemia - Hgb stable Dysphagia - Barium swallow showed esophageal dysmotility, no strictures/masses/hernia CHF exacerbation Acute on chronic renal failure HTN CAD Diabetes Gastritis GERD/ulcers Shingles Fall with right temporal laceration - 03/19 Loose black stools have resolved, Hgb stable Barium swallow yesterday showed esophageal dysmotility. Consider peppermint oil or Diltiazem therapy. Patient to sit up after eating/drinking. Head CT showed no intracranial bleeding/compromise, laceration site w/o s/s infection Continue to monitor labs transfuse prn prbc Continue PPI/carafate; If significant change in hgb, would consider repeating e ndoscopy, not needed at this time. Continue medical management. Barium swallow showing esophageal dysmotility, would consider trial of peppermint oil or calcium channel neeru such as diltiazem Clinical Quality Measures DVT/VTE Risk/Contraindication: Risk Factor Score Per Nursin MARYSE AGUILLON DO 03/22/20 1604: Subjective Subjective/Events-last exam No new compliants. No abdominal pain. Tolerating diet. Pills still seem to get stuck. Denies n/v fever sweats chills shortness of breath or chest pain. Objective Exam General Appearance: No Apparent Distress, Chronically ill, Obese HEENT: PERRL/EOMI, Normal ENT Inspection, Other (Sutures to right congregational area; some thrush on the tongue; periorbital ecchymosis to right eye) Neck: Normal Inspection, Non Tender, Supple Respiratory: Chest Non Tender, No Accessory Muscle Use, No Respiratory Distress Cardiovascular: Regular Rate, Rhythm, No JVD Gastrointestinal: non tender, soft Extremity: Normal Inspection, Non Tender Neurologic/Psychiatric: Alert, Oriented x3 Skin: Normal Color, Warm/Dry Lymphatic: No Adenopathy Assessment/Plan Assessment/Plan Assessment/Plan Anemia - Hgb stable Dysphagia - Barium swallow showed esophageal dysmotility, no strictures/masses/hernia CHF exacerbation Acute on chronic renal failure HTN CAD Diabetes Gastritis GERD/ulcers Shingles Fall with right temporal laceration - 03/19 Loose black stools have resolved, Hgb stable Barium swallow yesterday showed esophageal dysmotility. Consider peppermint oil or Diltiazem therapy. Patient to sit up after eating/drinking. Head CT showed no intracranial bleeding/compromise, laceration site w/o s/s infection Continue to monitor labs transfuse prn prbc Continue PPI/carafate; If significant change in hgb, would consider repeating endoscopy, not needed at this time. Continue medical management. Will sign off, call if needed. Supervisory-Addendum Brief Verification & Attestation Participated in pt care: history, MDM, physical Personally performed: exam, history, MDM, supervision of care Care discussed with: Medical Student Procedures: n/a Results interpretation: Verified all documentation Verification and Attestation of Medical Student E/M Service A medical student performed and documented this service in my presence. I reviewed and verified all information documented by the medical student and made modifications to such information, when appropriate. I personally performed the physical exam and medical decision making. Maryse Aguillon, Mar 22, 2020,16:04 MARIELY GRIJALVA MED STUDENT Mar 22, 2020 07:19 MARYSE AGUILLON DO Mar 22, 2020 16:04
[2020-03-22] MEDS: ARTIFICAL TEARS 0.4 ML UNIT DOSE (REFRESH PLUS) OU SCH ×4 (09:25→20:27)
[2020-03-22] MEDS: LIDOCAINE 4% (SALONPAS) PATCH TOP SCH (09:26)
[2020-03-22] MEDS: LACTOBACILLUS ACIDOPHILUS (PROBIOTIC) CAPSULE PO SCH ×3 (09:28→18:18)
[2020-03-22] MEDS: LORATADINE (CLARITIN) 10 MG TAB PO SCH (09:28)
[2020-03-22] MEDS: PANTOPRAZOLE 40 MG (PROTONIX) TAB PO SCH ×2 (09:28→20:27)
[2020-03-22] MEDS: doxAzosin 2 MG (CARDURA) TAB PO SCH ×2 (09:29→20:27)
[2020-03-22] MEDS: ISOSORBIDE MONONITRATE 60 MG (IMDUR) TAB PO SCH (09:29)
[2020-03-22] MEDS: meTOproloL SUCCINATE 50 MG (TOPROL XL) TAB PO SCH (09:29)
[2020-03-22] MEDS: amLODIPine 5 MG (NORVASC) TAB PO SCH ×2 (09:29→20:28)
--- NOTE | 2020-03-22 10:21 | Progress Note - Cardiology ---
Cardiology SOAP Progress Note Subjective: Sitting up in bed States she feels much better today No c/o CP at this time Objective: I&O/Vital Signs Weight (Pounds): 190 Weight (Ounces): 8.3 Weight (Calculated Kilograms): 86.658468 Constitutional: AAO x 3 Respiratory: chest is bilaterally symmetric, lungs clear to auscultation Cardiovascular: regular rate-rhythm, S1 and S2 Gastrointestional: soft; No tenderness; audible bowel sounds Extremities: No clubbing, No cyanosis; no lower extremity edema bilateral Neurologic/Psychiatric: oriented x 3, other (move all her limbs equally) Skin: No rash on exposed areas, No ulcerations on exposed areas Results/Procedures: Labs Microbiology 03/18/20 Urine Culture - Final, Complete Proteus mirabilis A/P: Assessment: Ac HFpEF. Echo of 03/16/20 (Dr Gambino): LVEF 55-65 percent, grade 2 diastolic dysfunction, left atrial dilatation, moderate aortic stenosis, valve area 1.2- 1.6 cm DAVID-3 on CKD-3 Orthostatic dizziness, improved Diarrhea, reporting dark stool, questionable GI bleed, stool for occult blood positive. Underwent EGD last month showing gastritis and esophagitis Hypertension. Control difficult because of postural symptoms suggestive of postural hypotension CAD. Cath August 2019: diffuse moderate coronary artery disease involving all her coronary system Anemia, etiology undetermined, managed by the Hospitalist Ivette Diabetes mellitus, managed by the Hospitalist Ivette History of recurrent UTI with multidrug resistance Degenerative joint disease Intolerance to statin and ARB H/o PAD, but no current claudication Mild bilateral carotid stenosis, by history H/o chronic pedal edema with history of chronic venous insufficiency History of urinary incontinence Plan: * Continue current regimen * Monitor labs * Reduce diuretics if evidence of prerenal azotemia * BP not well controlled - resume home antihypertensive regimen BENJI LESLIE Mar 22, 2020 10:21
--- NOTE | 2020-03-22 11:43 | Occupational Ther Daily Note ---
OT Current Status-Daily Note Subjective Pt alert, sitting in recliner. Pt agrees to therapy. No c/o pain at this time. Mental Status/Objective Patient Orientation: Person, Place, Time, Situation Attachments: IV, Telemetry ADL-Treatment Nrsg reported that pt took shower today. No balance breaks were noted throughout shower, per nrsg. Pt stated that nrsg assisted with bathing buttocks in shower. Discussed with pt how to lean side to side to cleanse buttocks without standing. Pt stated that she uses tub seat in shower at home. Independent with supine to EOB. SBA for pt to ambulate to bathroom and transfer onto toilet. SBA while pt complete clothing manipulation and hygiene. Therapy Code Descriptions/Definitions Functional [place] Measure: 0=Not Assessed/NA 4=Minimal Assistance 1=Total Assistance 5=Supervision or Setup 2=Maximal Assistance 6=Modified [place] 3=Moderate Assistance 7=Complete IndependenceSCALE: Activities may be completed with or without assistive devices. 2-Tfumloqbte-hbkohgj completes the activity by him/herself with no assistance from a helper. 5-Set-up or Clean-up Assistance-helper sets up or cleans up; patient completes activity. [place] assists only prior to or following the activity. 4-Supervision or Touching Assistance-helper provides verbal cues and/or touching /steadying and/or contact guard assistance as patient completes activity. Assistance may be provided throughout the activity or intermittently. 3-Partial/Moderate Assistance-helper does LESS THAN HALF the effort. [place] lifts, holds or supports trunk or limbs, but provides less than half the effort. 2-Substantial/Maximal Assistance-helper does MORE THAN HALF the effort. [place] lifts or holds trunk or limbs and provides more than half the effort. 9-Gabvbsfll-haybpv does ALL the effort. Patient does none of the effort to complete the activity. Or, the assistance of 2 or more helpers is required for the patient to complete the activity. If activity was not attempted, code reason: 7-Patient Refused. 9-Not Applicable-not attempted and the patient did not perform the activity before the current illness, exacerbation or injury. 10-Not Attempted due to Environmental Limitations-(lack of equipment, weather restraints, etc.). 88-Not Attempted due to Medical Conditions or Safety Concerns. Toileting Hygiene (QC): 4 Toilet Transfer (QC): 4 Discussed with nrsg about pt's need of statistical geneticist. Other Treatment Pt given medium resistance theraband for B UE strengthening. Pt demonstrated 4 exercises that pt had previously completed 1 set 10 reps. Educated pt on 2 more exercises to complete. Pt demonstrated understanding of each exercise. After session, pt sitting in recliner with call light/phone in reach. All needs met in room. Education OT Patient Education: Exercise program Teaching Recipient: Patient Teaching Methods: Demonstration, Discussion Response to Teaching: Verbalize Understanding, Return Demonstration OT Group Home Goals Master Brewer Goals Time Frame: Mar 30, 2020 Eating (QC): 6 Oral Hygiene (QC): 6 Toileting Hygiene (QC): 6 Shower/Bathe Self (QC): 6 Upper Body Dressing (QC): 6 Lower Body Dressing (QC): 6 On/Off Footwear (QC): 6 Additional Goals: 1-Demonstrate ADL Tasks, 2-Verbalize Understanding, 3- ImproveStrength/Neelima 1=Demonstrate adherence to instructed precautions during ADL tasks. 2=Patient will verbalize/demonstrate understanding of assistive devices/modifications for ADL. 3=Patient will improve strength/tolerance for activity to enable patient to perform ADL's. OT Education/Plan Problem List/Assessment Assessment: Decreased Activ Tolerance, Decreased UE Strength, Impaired Funct Balance, Impaired Self-Care Skills Pt would benefit from short term skilled OT in order to maximize LOF for safe return home to [facility]. Discharge Recommendations Plan/Recommendations: Continue POC Treatment Plan/Plan of Care Patient would benefit from OT for education, treatment and training to promote independence in ADL's, mobility, safety and/or upper extremity function for A DL's. Plan of Care: ADL Retraining, Functional Mobility, UE Funct Exercise/Act Treatment Duration: Mar 30, 2020 Frequency: 5 times per week Estimated Hrs Per Day: .25 hour per day Agreement: Yes Rehab Potential: Fair Time/GCodes Start Time: 10:45 Stop Time: 11:13 Total Time Billed (hr/min): 28 Billed Treatment Time 1 visit-ADL 1 (14 min) EX 1 (14 min) RADHIKA VARGAS Mar 22, 2020 11:43
--- NOTE | 2020-03-22 14:01 | NUR ---
Discussed with Natalia (DADA RN) about current PO intake. Note avg PO intake 43% x2d, per chart review. Placed order to add Glucerna (vary) with meals TID, for increased kcal intake. Provides 220 kcal and 10 g Pro per serving. Will continue to follow and reassess as pt needs, intake, and status change. Sanna Grover MS RD LD [phone] cell
--- NOTE | 2020-03-22 14:14 | Physical Therapy Daily Note ---
PT Daily Note-Current Subjective PT in recliner. Agrees to ther ex only but then she was persuaded to amb in room as well. Pt states after therapy "I am glad I went ahead and walked." Pt reports both shoulders hurt but does not rate her pain. Pt c/o "dizzy" upon 2nd ambulation trip in room but says "I had this before. This is not new. I was th inking back this morning. It do that. I fall backwards at my apartment but I always have landed on the toilet b/c it is right behind me in my bathroom." Mental Status Patient Orientation: Person, Place, Situation Transfers SCALE: Activities may be completed with or without assistive devices. 0-Dhvjjupepe-lharxle completes the activity by him/herself with no assistance from a helper. 5-Set-up or Clean-up Assistance-helper sets up or cleans up; patient completes activity. [place] assists only prior to or following the activity. 4-Supervision or Touching Assistance-helper provides verbal cues and/or touching/steadying and/or contact guard assistance as patient completes activity. Assistance may be provided throughout the activity or intermittently. 3-Partial/Moderate Assistance-helper does LESS THAN HALF the effort. [place] lifts, holds or supports trunk or limbs, but provides less than half the effort. 2-Substantial/Maximal Assistance-helper does MORE THAN HALF the effort. [place] lifts or holds trunk or limbs and provides more than half the effort. 1-Vapihzldg-qqloxh does ALL the effort. Patient does none of the effort to complete the activity. Or, the assistance of 2 or more helpers is required for the patient to complete the activity. If activity was not attempted, code reason: 7-Patient Refused. 9-Not Applicable-not attempted and the patient did not perform the activity before the current illness, exacerbation or injury. 10-Not Attempted due to Environmental Limitations-(lack of equipment, weather restraints, etc.). 88-Not Attempted due to Medical Conditions or Safety Concerns. Gait Training Gait Assistive Device: FWW Pt amb with FWW 3 x 50ft in room, sitting in recliner x 2min between bouts. Pt CGA throughout and moving at good speed. No LOB. Exercises Seated Therapy Exercises: Ankle pumps, Long arc quads, Hip flexion, Hip abd/add Seated Reps: 15 Assessment Current Status: Good Progress Pt did very well with all ther ex and mobility in room. Pt presented with easy rise from chair and good/safe mobility in room with FWW and CGA. Pt did not present wtih unsteadiness during turns. Pt did have one c/o dizziness but recovered within 1-2 min. Pt resting in recliner post therapy session with call light and all needs met. PT Manager Sas Goals [facility] Goals PT Manager Sas Goals Time Frame: Apr 02, 2020 Roll Left & Right (QC): 6 Sit to Lying (QC): 6 Lying-Sitting on Side/Bed(QC): 6 Sit to Stand (QC): 6 Chair/Bce-ok-Rhtqj Xfer(QC): 6 Toilet Transfer (QC): 6 Car Transfer (QC): 6 Does the Patient Walk: Yes Walk 10 feet (QC): 6 Walk 50ft with 2 Turns (QC): 6 Walk 150 ft (QC): 6 Walking 10ft on Uneven Surface: 6 1 Step (curb) (QC): 9 4 Steps (QC): 9 12 Steps (QC): 9 Picking up an Object (QC): 6 Wheel 50 feet with 2 turns (QC: 9 Wheel 150 feet: 9 PT Plan Treatment/Plan Treatment Plan: Continue Plan of Care Treatment Plan: Bed Mobility, Education, Functional Activity Neelima, Functional Strength, Gait, Safety, Therapeutic Exercise, Transfers Treatment Duration: Apr 02, 2020 Frequency: 6 times per week Estimated Hrs Per Day: .5 hour per day Patient and/or Family Agrees t: Yes Time/GCodes Time In: 1315 Time Out: 1340 Total Billed Treatment Time: 25 Total Billed Treatment 1, ther ex 15', gait 10' KIM ELY CPTA Mar 22, 2020 14:14
--- NOTE | 2020-03-22 17:57 | Progress Note - Cardiology ---
Cardiology SOAP Progress Note Subjective: Gen malaise present Short of breath with exertion No cp or palp or syncope No n/v Objective: I&O/Vital Signs 03/22/20 03/22/20 03/22/20 03/22/20 06:03 07:00 07:40 09:00 Temp 36.4 Pulse 57 59 Resp 20 B/P (MAP) 169/77 (107) Pulse Ox 93 94 94 O2 Delivery Nasal Cannula Room Air Room Air O2 Flow Rate 0.50 03/22/20 13:01 Pulse 61 03/21/20 23:59 Intake Total 1760 ml Output Total 750 ml Balance 1010 ml Weight (Pounds): 190 Weight (Ounces): 8.3 Weight (Calculated Kilograms): [id number] Constitutional: AAO x 3 Respiratory: chest is bilaterally symmetric, lungs clear to auscultation Cardiovascular: regular rate-rhythm, S1 and S2 Gastrointestional: soft; No tenderness; audible bowel sounds Extremities: No clubbing, No cyanosis; no lower extremity edema bilateral Neurologic/Psychiatric: oriented x 3, other (move all her limbs equally) Skin: No rash on exposed areas, No ulcerations on exposed areas Results/Procedures: Labs Laboratory Tests 03/21/20 20:57: Glucometer 122H 03/22/20 05:36: Glucometer 102 03/22/20 11:06: Glucometer 103 03/22/20 15:42: Glucometer 135H Microbiology 03/18/20 Urine Culture - Final, Complete Proteus mirabilis Laboratory Tests 03/21/20 04:20 03/21/20 04:35 A/P: Assessment: Ac HFpEF. Echo of 03/16/20 (Dr Gambino): LVEF 55-65 percent, grade 2 diastolic dysfunction, left atrial dilatation, moderate aortic stenosis, valve area 1.2- 1.6 cm Uncontrolled hypertension DAVID-3 on CKD-3 Orthostatic dizziness, improved Diarrhea, questionable GI bleed, stool for occult blood positive. Underwent EGD last month showing gastritis and esophagitis Hypertension. Control difficult because of postural symptoms suggestive of postural hypotension CAD. Cath August 2019: diffuse moderate coronary artery disease involving all her coronary system Anemia, etiology undetermined, managed by the Hospitalist Svce Diabetes mellitus, managed by the Hospitalist [facility] History of recurrent UTI with multidrug resistance Degenerative joint disease Intolerance to statin and ARB H/o PAD, but no current claudication Mild bilateral carotid stenosis, by history H/o chronic pedal edema with history of chronic venous insufficiency History of urinary incontinence Plan: * Continue current regimen * Monitor labs * Reduce diuretics if evidence of prerenal azotemia * BP not well controlled - resume home antihypertensive regimen JENNIFER PITTMAN MD FACP [facility] CCDS Mar 22, 2020 17:57
[2020-03-22 18:00] VITALS: BP 169/77
[2020-03-22] MEDS: MELATONIN 10 MG TABLET PO SCH (20:27)
[2020-03-22] MEDS: PATCH REMOVAL TP SCH (20:28)
[2020-03-23 04:56] LABS: MEAN PLATELET VOLUME 9.6 fL (9.0-12.2); WHITE BLOOD COUNT 6.8 10^3/uL (4.3-11.0)
[2020-03-23 05:05] LABS: ALBUMIN 3.2 GM/DL (3.2-4.5); POTASSIUM 3.7 MMOL/L (3.6-5.0)
[2020-03-23 05:08] LABS: TOTAL PROTEIN 6.4 GM/DL (6.4-8.2)
[2020-03-23 05:10] LABS: BILIRUBIN,TOTAL 0.5 MG/DL (0.1-1.0)
[2020-03-23 05:11] LABS: CREATININE SERUM 1.57 MG/DL (0.60-1.30)
[2020-03-23 05:18] VITALS: BP 149/67
[2020-03-23] MEDS: KCL 20 MEQ TAB (K-DUR) PO SCH (05:43)
[2020-03-23] MEDS: HYOSCYAMINE 0.125 MG (LEVSIN) TAB PO SCH ×2 (05:43→11:55)
[2020-03-23] MEDS: LEVOTHYROXINE 125 MCG (LEVOTHROID) TABLET PO SCH (05:43)
[2020-03-23] MEDS: SUCRALFATE 1 GM (CARAFATE) TAB PO SCH ×2 (05:43→11:55)
[2020-03-23] MEDS: NYSTATIN ORAL SUSP 5 ML UDC PO SCH ×2 (05:43→11:55)
[2020-03-23] MEDS: MEROPENEM 500 MG in WATER (STERILE) FOR INJECTION 10 ML IV SCH (05:44)
[2020-03-23] MEDS: FUROSEMIDE 40 MG/4 ML INJ (LASIX) IV SCH (05:44)
[2020-03-23] MEDS: oxyCODONE/APAP 10/325MG (PERCOCET 10) TABLET PO PRN (05:44)
[2020-03-23] MEDS: CATHETER FLUSH 10 ML SYR IV SCH ×2 (05:45→11:55)
--- NOTE | 2020-03-23 08:08 | Progress Note ---
Subjective Subjective Date Seen by Provider: Mar 23, 2020 Time Seen by Provider: 07:50 Pt doing well, still having some exertional SOB that is unchanged as well as some difficulty swallowing. LE swelling is slightly improved. Had a BM yesterday, no diarrhea or black stool. Still has some dysuria that she attributes to the catheter, which has been removed. Still has thrush. Shingles is improving. WBC is 6.8, hgb 10.0, creatinine 1.57. Review of Systems General: No Chills HEENT: No Head Aches, No Visual Changes Pulmonary: Other (exertional dyspnea) Cardiovascular: No: Chest Pain, Palpitations Gastrointestinal: No: Nausea, Vomiting, Abdominal Pain Genitourinary: Dysuria Musculoskeletal: other (LE swelling) Neurological: Weakness All Other Systems Reviewed All Other Systems Reviewed: Yes Objective Exam Vital Signs Vital Signs - First Documented 03/18/20 03/18/20 11:56 12:00 Temp 36.1 Pulse 55 Resp 20 B/P (MAP) 140/95 (110) Pulse Ox 99 O2 Delivery Nasal Cannula O2 Flow Rate 3.00 Capillary Refill : Less Than 3 Seconds General Appearance: No Apparent Distress, Chronically ill, Obese Eyes: Bilateral Eye Normal Inspection, Bilateral Eye EOMI HEENT: PERRL/EOMI, Other (Sutures to right holiness area; some thrush on the tongue; periorbital ecchymosis to right eye) Neck: Normal Inspection, Supple Respiratory: Chest Non Tender, No Accessory Muscle Use, No Respiratory Distress, Crackles (mild at the bases) Cardiovascular: Regular Rate, Rhythm, No JVD, No Murmur, Other (edema BLE, improving) Gastrointestinal: Soft; No Guarding, No Rebound; Tenderness (epigastric) Rectal: Deferred Extremity: Normal Inspection, Non Tender Neurologic/Psychiatric: Alert, Oriented x3, No Motor/Sensory Deficits, Normal Mood/Affect Skin: Normal Color, Warm/Dry, Other (R holiness laceration closed with sutures in place; improving shingles rash to left upper back) Lymphatic: No Adenopathy Results Lab Laboratory Tests 03/22/20 11:06: Glucometer 103 03/22/20 15:42: Glucometer 135H 03/22/20 20:46: Glucometer 128H 03/23/20 04:15: White Blood Count 6.8, Red Blood Count 3.44L, Hemoglobin 10.0L, Hematocrit 31L, Mean Corpuscular Volume 91, Mean Corpuscular Hemoglobin 29, Mean Corpuscular Hemoglobin Concent 32, Red Cell Distribution Width 16.7H, Platelet Count 310, Mean Platelet Volume 9.6 03/23/20 04:25: Sodium Level 140, Potassium Level 3.7, Chloride Level 97L, Carbon Dioxide Level 29, Anion Gap 14, Blood Urea Nitrogen 26H, Creatinine 1.57H, Estimat Glomerular Filtration Rate 32, BUN/Creatinine Ratio 17, Glucose Level 90, Calcium Level 9.0, Corrected Calcium 9.6, Total Bilirubin 0.5, Aspartate Amino Transf (AST/SGOT) 34, Alanine Aminotransferase (ALT/SGPT) 18, Alkaline Phosphatase 43, Total Protein 6.4, Albumin 3.2 Microbiology 03/18/20 Urine Culture - Final, Complete Proteus mirabilis Assessment/Plan Assessment/Plan Assessment and Plan CHF exacerbation -Lasix Melena with anemia -monitoring labs and stools - hgb today is 10.0 -BM yesterday was normal Dysphagia -barium swallow showed esophageal dysmotility - Dr. Aguillon recommends pepperment oil since pt is allergic to diltiazem Acute on Chronic Renal Insufficiency -monitor BUN/Creatinine - improved today at 1.57 UTI -culture shows Proteus mirabilis -on meropenem, pt to get last doses today. Thrush -on diflucan and nystatin Fall with right head trauma -laceration healing well Allergic Rhinitis -loratadine Shingles -improving -lidocaine patches Plan to discharge home to daughter today. Will do ambulatory O2 test to assess need for home oxygen. Counselled pt on adequate fluid intake to help with recurrent UTI's. Clinical Quality Measures DVT/VTE Risk/Contraindication: Risk Factor Score Per Nursin ELLYN VILLALOBOS MED STUDENT Mar 23, 2020 08:08
--- NOTE | 2020-03-23 08:52 | NUR ---
DR. WOLF ON FLOOR ASSESSING PATIENT AND GAVE VERBAL ORDER FOR HOME O2 AMBULATION STUDY.
[2020-03-23] MEDS: meTOproloL SUCCINATE 50 MG (TOPROL XL) TAB PO SCH (09:06)
[2020-03-23] MEDS: LIDOCAINE 4% (SALONPAS) PATCH TOP SCH (09:06)
[2020-03-23] MEDS: LACTOBACILLUS ACIDOPHILUS (PROBIOTIC) CAPSULE PO SCH ×2 (09:06→11:55)
[2020-03-23] MEDS: ARTIFICAL TEARS 0.4 ML UNIT DOSE (REFRESH PLUS) OU SCH ×2 (09:07→11:55)
[2020-03-23] MEDS: ISOSORBIDE MONONITRATE 60 MG (IMDUR) TAB PO SCH (09:07)
[2020-03-23] MEDS: amLODIPine 5 MG (NORVASC) TAB PO SCH (09:07)
[2020-03-23] MEDS: PANTOPRAZOLE 40 MG (PROTONIX) TAB PO SCH (09:07)
[2020-03-23] MEDS: doxAzosin 2 MG (CARDURA) TAB PO SCH (09:07)
[2020-03-23] MEDS: LORATADINE (CLARITIN) 10 MG TAB PO SCH (09:07)
--- NOTE | 2020-03-23 09:52 | Discharge Summary ---
Diagnosis/Chief Complaint Date of Admission Mar 18, 2020 at 11:05 Date of Discharge Discharge Summary Discharge Physical Examination Allergies: Coded Allergies: sertraline (Verified Allergy, Severe, CANNOT BREATHE, 03/14/17) Cephalosporins (Unverified Allergy, Mild, 03/14/17) Iodinated Contrast Media (Unverified Allergy, Mild, 03/14/17) Penicillins (Unverified Allergy, Mild, 03/14/17) Shellfish (Unverified Allergy, Mild, 03/14/17) atorvastatin (Unverified Allergy, Mild, 03/14/17) clarithromycin (Unverified Allergy, Mild, 03/14/17) codeine (Unverified Allergy, Mild, PT HAS RECEIVED HYDROMORPHONE IN THE PAST, 03/14/17) diltiazem (Unverified Allergy, Mild, 03/14/17) glucagon (Unverified Allergy, Mild, 03/14/17) lisinopril (Unverified Allergy, Mild, 03/14/17) morphine (Unverified Allergy, Mild, PT HAS RECEIVED HYDROMORPHONE IN THE PAST, 03/14/17) nifedipine (Unverified Allergy, Mild, 03/14/17) paroxetine (Unverified Allergy, Mild, 03/14/17) sulfamethoxazole (Unverified Allergy, Mild, 03/14/17) acetaminophen (Verified Allergy, Unknown, 03/14/17) benzocaine (Verified Allergy, Unknown, methemoglobinemia, 05/14/18) latex (Verified Allergy, Unknown, 03/14/17) meperidine (Verified Allergy, Unknown, PATIENT HAS RECEIVED FENTANYL IN THE PAST, 03/14/17) metoprolol (Verified Allergy, Unknown, 02/17/20) propoxyphene (Verified Allergy, Unknown, 03/14/17) sulindac (Verified Allergy, Unknown, 03/14/17) tramadol (Verified Allergy, Unknown, 04/12/17) Uncoded Allergies: TAPE (Allergy, Unknown, CAN USE PAPER TAPE, 12/08/08) Vitals & I&Os Vital Signs Date Time Temp Pulse Resp B/P (MAP) Pulse Ox O2 Delivery O2 Flow Rate FiO2 03/23/20 08:51 Room Air 03/23/20 07:03 94 03/23/20 07:00 58 03/23/20 05:18 36.4 20 149/67 (94) 0.50 0.50 Hospital Course Pending Labs Laboratory Tests 03/23/20 04:15: White Blood Count 6.8, Red Blood Count 3.44, Hemoglobin 10.0, Hematocrit 31, Mean Corpuscular Volume 91, Mean Corpuscular Hemoglobin 29, Mean Corpuscular Hemoglobin Concent 32, Red Cell Distribution Width 16.7, Platelet Count 310, Mean Platelet Volume 9.6 03/23/20 04:25: Sodium Level 140, Potassium Level 3.7, Chloride Level 97, Carbon Dioxide Level 29, Anion Gap 14, Blood Urea Nitrogen 26, Creatinine 1.57, Estimat Glomerular Filtration Rate 32, BUN/Creatinine Ratio 17, Glucose Level 90, Calcium Level 9.0, Corrected Calcium 9.6, Total Bilirubin 0.5, Aspartate Amino Transf (AST/SGOT) 34, Alanine Aminotransferase (ALT/SGPT) 18, Alkaline Phosphatase 43, Total Protein 6.4, Albumin 3.2 Discharge Instructions to patient/family Please see electronic discharge instructions given to patient. Discharge Medications Reviewed and agree with Discharge Medication list on patient's Discharge Instruction sheet Clinical Quality Measures DVT/VTE Risk/Contraindication: Risk Factor Score Per Nursin HIRAL WOLF MD Mar 23, 2020 09:52
[2020-03-23] MEDS ORDERED: METO50TA7 PO (09:58)
[2020-03-23] MEDS ORDERED: NYST1000 PO (09:58)
[2020-03-23] MEDS ORDERED: DICL100G18 TOP (09:58)
[2020-03-23] MEDS ORDERED: LIDO1ADH78 TP (09:58)
[2020-03-23] MEDS ORDERED: IPRA3AMP31 INH (09:58)
--- NOTE | 2020-03-23 09:59 | D/C HH Face to Face Order ---
D/C HH Face to Face Orders Reconcile Patient Problems Problems Reviewed?: Yes Instructions for Patient Via [employer] Video, Patient Instructions/FollowUp: 1 wk with dorothy 2 wks with maribel 2 wks with cardiology Physician to follow Patient: dorothy Discharge Diet for Home: Regular Diet Patient Problems: copd, hypoxemia cad gi bleed anemia Patient Data-Allergies,Ht & Wt Patient Allergies: Coded Allergies: sertraline (Verified Allergy, Severe, CANNOT BREATHE, 03/14/17) Cephalosporins (Unverified Allergy, Mild, 03/14/17) Iodinated Contrast Media (Unverified Allergy, Mild, 03/14/17) Penicillins (Unverified Allergy, Mild, 03/14/17) Shellfish (Unverified Allergy, Mild, 03/14/17) atorvastatin (Unverified Allergy, Mild, 03/14/17) clarithromycin (Unverified Allergy, Mild, 03/14/17) codeine (Unverified Allergy, Mild, PT HAS RECEIVED HYDROMORPHONE IN THE PAST, 03/14/17) diltiazem (Unverified Allergy, Mild, 03/14/17) glucagon (Unverified Allergy, Mild, 03/14/17) lisinopril (Unverified Allergy, Mild, 03/14/17) morphine (Unverified Allergy, Mild, PT HAS RECEIVED HYDROMORPHONE IN THE PAST, 03/14/17) nifedipine (Unverified Allergy, Mild, 03/14/17) paroxetine (Unverified Allergy, Mild, 03/14/17) sulfamethoxazole (Unverified Allergy, Mild, 03/14/17) acetaminophen (Verified Allergy, Unknown, 03/14/17) benzocaine (Verified Allergy, Unknown, methemoglobinemia, 05/14/18) latex (Verified Allergy, Unknown, 03/14/17) meperidine (Verified Allergy, Unknown, PATIENT HAS RECEIVED FENTANYL IN THE PAST, 03/14/17) metoprolol (Verified Allergy, Unknown, 02/17/20) propoxyphene (Verified Allergy, Unknown, 03/14/17) sulindac (Verified Allergy, Unknown, 03/14/17) tramadol (Verified Allergy, Unknown, 04/12/17) Uncoded Allergies: TAPE (Allergy, Unknown, CAN USE PAPER TAPE, 12/08/08) Height (Feet): 5 Height (Inches): 3.00 Weight (Pounds): 190 Weight (Ounces): 8.3 Home Health Need/Face to Face Date of Face to Face: Mar 23, 2020 Clinical Findings: Muscle weakness, Shortness of breath I have seen Pt [id number]: Yes Discharged To: Other (dtrs house) Diagnosis/Conditions: copd, hypoxemia cad gi bleed anemia recurrent uti Patient is Homebound due to: CognItive deficits, Muscle weakness, Shortness of breath/distress Homebound Status Due to the above stated illness, injury or surgical procedure (medical condition or diagnosis) and associated clinical findings, the patient is homebound because of his/her inability to leave home except with aid of a supportive device and/or person AND leaving the home requires a considerable and taxing effort or is medically contraindicated. Pt req the following assistanc: Aid of another person, Walker Home Health Nursing Orders Home Health Services Order: Nursing Services, Technician [employer]-Evaluate & Treat, Physical Therapy-Evaluate & Treat Home Health Lab Orders Labs (specify type/freq): cbc and cmp on 03/30/2020 Therapy Orders Therapy Orders: Physical Therapy, PT to assess for OT Therapy Specific Orders: Eval assistive deivces, Increase strength/endurance Certify Stmt I certify that this patient is under my care and that I, a nurse practitioner or a physician; a culinary assistant working with me, had a face to face encounter that - meets the physician face to face encounter requirements with this patient as dated. HIRAL WOLF MD Mar 23, 2020 09:59
--- NOTE | 2020-03-23 11:00 | NUR ---
CM FINALIZED DISCHARGE PLAN: Patient will discharge to home today with Home Health Care. She also had an o2 study that showed she will need 2LPM of o2 with exertion. Her daughter Patty rents oxygen from [email or web address] [facility]. Updated Patty and patient that she will qualify to have oxygen provided by the DME under the patient's insurance. Faxed needed information to [facility]. Patty is picking up their rented portable concentrator from [facility] before she picks up the patient. Updated patient's choice of [facility] that she will be dismissing today. They will see the patient on 03/24 and pt and family aware of that too. They deny any further needs or requests. Overall plan is that patient will return to [facility] at some point after vacation is had with her family. Daughter Patty has asked many times if the patient will return to [facility] skilled or be able to go back to the assisted living side where she has lived prior to this hospitalization. Encouraged her to continue talks with Mariann at [facility] and she also reports that her mom is supposed to have an appointment with her doctor before she returns to [facility]. Encouraged her to talk with her doctor about further care plans. She voiced understanding.
--- NOTE | 2020-03-23 11:47 | NUR ---
Patient walked 120 feet and needed 2L oxygen on exertion. Addendum: 03/23/20 at 1147 by RENAE TIM RT Amended: Links added.
[2020-03-23 14:30] VITALS: BP 149/67
--- NOTE | 2020-03-28 14:27 | Therapy Team Discharge Summary ---
Therapy Discharge Summary Discharge Recommendations Date of Discharge Mar 23, 2020 at 14:30 Occupational Therapy Pt admitted SWB with CHF/UTI. At [facility], pt was living at an MAX where she could bath and dress independently using AE. Upon evaluation, pt was independent with eating, SBA oral care, min A showering, mod A lower body dressing, mod A footwear, and SBA toileting. OT txs focused on increasing independence and safety with ADLs and functional mobility, and increasing BUE strength and functional endurance. Pt's LTGs addressed but not attained. Pt d/c'd from facili ty, thus d/c from OT. Decreased Activ Tolerance, Decreased UE Strength, Impaired Funct Balance, Impaired Self-Care Skills PT [facility]ci Goals Fci Goals PT Tire Servicer Goals Time Frame: Apr 02, 2020 Roll Left to Right (QC): 6 Sit to Lying (QC): 6 Lying-Sitting on Side/Bed(QC): 6 Sit to Stand (QC): 6 Chair/Tur-kp-Qsuxz Xfer(QC): 6 Car Transfer (QC): 6 Does the Patient Walk: Yes Walk 10 feet (QC): 6 Walk 10ft-Uneven Surface(QC): 6 Walk 50ft with 2 Turns (QC): 6 Walk 150 ft (QC): 6 Wheel 50 feet with 2 turns (QC: 9 1 Step (curb) (QC): 9 4 Steps (QC): 9 12 Steps (QC): 9 Picking up an Object (QC): 6 OT Tire Servicer Goals Tire Servicer Goals Time Frame: Mar 30, 2020 Eating (QC): 6 (met) Oral Hygiene (QC): 6 (not met, set up) Shower/Bathe Self (QC): 6 (not met, min A) Upper Body Dressing (QC): 6 (not met) Lower Body Dressing (QC): 6 (not met, min A) On/Off Footwear (QC): 6 (not met) Toileting Hygiene (QC): 6 (not met, SBA) Toilet/Commode Transfer (QC): 6 Additional Goals: 1-Demonstrate ADL Tasks, 2-Verbalize Understanding, 3- ImproveStrength/Neelima 1=Demonstrate adherence to instructed precautions during ADL tasks. 2=Patient will verbalize/demonstrate understanding of assistive devices/modifications for ADL. 3=Patient will improve strength/tolerance for activity to enable patient to perform ADL's. HALLE DOMINGO OT Mar 28, 2020 14:27
--- NOTE | 2020-03-28 14:54 | Therapy Team Discharge Summary ---
Therapy Discharge Summary Discharge Recommendations Date of Discharge Mar 23, 2020 at 14:30 Physical Therapy Patient seen x 2 sessions to address goals. Patient is SBA to [facility] for safety with all mobility. Patient ambulates with FWW 50' x 3 sets requiring recovery periods. Goals addressed but not attained due to duration of stay. Occupational Therapy Decreased Activ Tolerance, Decreased UE Strength, Impaired Funct Balance, Impaired Self-Care Skills PT Prison Goals [employer] Internship Goals PT [employer] Internship Goals Time Frame: Apr 02, 2020 Roll Left to Right (QC): 6 Sit to Lying (QC): 6 Lying-Sitting on Side/Bed(QC): 6 Sit to Stand (QC): 6 Chair/Yua-wl-Fcpmy Xfer(QC): 6 Car Transfer (QC): 6 Does the Patient Walk: Yes Walk 10 feet (QC): 6 Walk 10ft-Uneven Surface(QC): 6 Walk 50ft with 2 Turns (QC): 6 Walk 150 ft (QC): 6 Wheel 50 feet with 2 turns (QC: 9 1 Step (curb) (QC): 9 4 Steps (QC): 9 12 Steps (QC): 9 Picking up an Object (QC): 6 OT Prison Goals Prison Goals Time Frame: Mar 30, 2020 Eating (QC): 6 (met) Oral Hygiene (QC): 6 (not met, set up) Shower/Bathe Self (QC): 6 (not met, min A) Upper Body Dressing (QC): 6 (not met) Lower Body Dressing (QC): 6 (not met, min A) On/Off Footwear (QC): 6 (not met) Toileting Hygiene (QC): 6 (not met, SBA) Toilet/Commode Transfer (QC): 6 Additional Goals: 1-Demonstrate ADL Tasks, 2-Verbalize Understanding, 3- ImproveStrength/Neelima 1=Demonstrate adherence to instructed precautions during ADL tasks. 2=Patient will verbalize/demonstrate understanding of assistive devices/modifications for ADL. 3=Patient will improve strength/tolerance for activity to enable patient to perform ADL's. MARICARMEN EPSTEIN PT Mar 28, 2020 14:54
== END 2020-03-23 14:30 | disposition home health service (06) | DRG 291 ==
LOC: 4TH 11:05
PROVIDERS: ADMIT Family Medicine; ATTEND Family Medicine
DX: I13.0 Hypertensive heart and chronic kidney disease with heart failure and stage 1 through stage 4 chronic kidney disease, or unspecified chronic kidney disease (principal); I50.33 Acute on chronic diastolic (congestive) heart failure; K92.1 Melena; N39.0 Urinary tract infection, site not specified; N17.9 Acute kidney failure, unspecified; R13.10 Dysphagia, unspecified; I25.10 Atherosclerotic heart disease of native coronary artery without angina pectoris; D64.9 Anemia, unspecified; B37.9 Candidiasis, unspecified; F41.0 Panic disorder [episodic paroxysmal anxiety]; J30.9 Allergic rhinitis, unspecified; E11.22 Type 2 diabetes mellitus with diabetic chronic kidney disease; K21.9 Gastro-esophageal reflux disease without esophagitis; K29.70 Gastritis, unspecified, without bleeding; B02.9 Zoster without complications; N18.30 Chronic kidney disease, stage 3 unspecified; M19.90 Unspecified osteoarthritis, unspecified site; E11.51 Type 2 diabetes mellitus with diabetic peripheral angiopathy without gangrene; I87.2 Venous insufficiency (chronic) (peripheral); E78.5 Hyperlipidemia, unspecified
CPT/HCPCS: 36415; 70450; 71046; 74220; 80053; 81000; 82962; 85027; 87077; 87088; 87186; 93005; 94664; 94668; 94760; 94761

== ENCOUNTER 2020-04-08 10:29 | Outpatient (RCR) | payer MEDICARE, OTHER, MEDICAID ==
[~2020-04-08] VITALS: Ht 157 cm; Wt 81.9 kg
[~2020-04-08 10:29] MED LIST changes: +DICL100G18 TOP; +IPRA3AMP31 INH; +LIDO1ADH78 TP; +METO50TA7 PO; +NYST1000 PO
[2020-04-08] MEDS ORDERED: IRON DEXTRAN INJECTION 1,000 MG in NS (IVPB) 250 ML IV ONE (10:45)
[2020-04-08] MEDS ORDERED: NS IV 500 ML 500 ML IV SCH (10:45)
[2020-04-08] MEDS ORDERED: EPINEPHrine INJECTION 1 MG/ML AMP IM PRN (10:45)
[2020-04-08] MEDS ORDERED: diphenhydrAMINE 50 MG/ML INJ (BENADRYL) IV PRN (10:45)
[2020-04-08] MEDS ORDERED: RT-ALBUTEROL SULF 2.5 MG/3 ML PRE-MIX VIAL IH PRN (10:45)
[2020-04-08] MEDS ORDERED: IRON DEXTRAN INJECTION 25 MG in NS (IVPB) 5.75 ML IV ONE (10:45)
[2020-04-08] MEDS ORDERED: HYDROCORTISONE 100 MG/2 ML (Solu-CORTEF) VIAL IV PRN (10:45)
[2020-04-08 11:00] VITALS: BP 153/98
== END 2020-04-08 13:55 | disposition home or self-care (01) ==
LOC: SDC 10:29
PROVIDERS: ATTEND Family Medicine
DX: D50.9 Iron deficiency anemia, unspecified (principal)
CPT/HCPCS: 96365

== ENCOUNTER 2020-06-11 10:32 | Inpatient (IN) | payer MEDICARE, OTHER, MEDICAID ==
[~2020-06-11] VITALS: Ht 157 cm; Wt 85.0 kg
[~2020-06-11 10:32] MED LIST changes: +CHOL-34 PO; -CHOL10002 PO; -ISM60TCR PO; +ISOS60TA63 PO; -OXYC-471 PO; +OXYC1TAB11 PO
[2020-06-11 11:03] LABS: ALBUMIN 3.6 GM/DL (3.2-4.5); CHLORIDE 106 MMOL/L (98-107); POTASSIUM 4.3 MMOL/L (3.6-5.0); SODIUM 142 MMOL/L (135-145)
[2020-06-11 11:04] LABS: CALCIUM 9.2 MG/DL (8.5-10.1)
[2020-06-11 11:05] LABS: GLUCOSE 130 MG/DL (70-105); TOTAL PROTEIN 7.2 GM/DL (6.4-8.2)
[2020-06-11 11:06] LABS: CARBON DIOXIDE 25 MMOL/L (21-32)
[2020-06-11 11:07] LABS: BILIRUBIN,TOTAL 0.4 MG/DL (0.1-1.0)
[2020-06-11 11:09] LABS: ALKALINE PHOSPHATASE 43 U/L (40-136); CREATININE SERUM 1.84 MG/DL (0.60-1.30); GFR ESTIMATED 26
[2020-06-11 11:10] LABS: BUN/CREATININE RATIO 17
[2020-06-11 11:12] LABS: ALANINE AMINOTRANSFERASE 12 U/L (0-55)
[2020-06-11] MEDS ORDERED: FUROSEMIDE 40 MG/4 ML INJ (LASIX) IV STA (11:23)
[2020-06-11 11:28] LABS: BASOPHILS # (AUTO) 0.1 10^3/uL (0.0-0.1); BASOPHILS % (AUTO) 1 % (0-10); EOSINOPHILS # (AUTO) 0.2 10^3/uL (0.0-0.3); EOSINOPHILS % (AUTO) 3 % (0-10); HEMATOCRIT 34 % (35-52); HEMOGLOBIN 10.5 g/dL (11.5-16.0); LYMPHOCYTES # (AUTO) 0.5 10^3/uL (1.0-4.0); LYMPHOCYTES % (AUTO) 7 % (12-44); MEAN CORPUSCULAR HEMOGLOBIN 29 pg (25-34); MEAN CORPUSCULAR HGB CONC 31 g/dL (32-36); MEAN CORPUSCULAR VOLUME 95 fL (80-99); MEAN PLATELET VOLUME 9.7 fL (9.0-12.2); MONOCYTES # (AUTO) 0.4 10^3/uL (0.0-1.0); MONOCYTES % (AUTO) 5 % (0-12); NEUTROPHILS # (AUTO) 6.7 10^3/uL (1.8-7.8); NEUTROPHILS % (AUTO) 84 % (42-75); PLATELET COUNT 261 10^3/uL (130-400)
[2020-06-11 11:30] LABS: BILIRUBIN,URINE NEGATIVE (NEGATIVE); CLARITY,URINE CLEAR; COLOR,URINE YELLOW; GLUCOSE, URINE (UA) NEGATIVE (NEGATIVE); KETONES,URINE NEGATIVE (NEGATIVE); LEUKOCYTE ESTERASE ,URINE NEGATIVE (NEGATIVE); NITRITE,URINE POSITIVE (NEGATIVE); PROTEIN,URINE NEGATIVE (NEGATIVE)
--- NOTE | 2020-06-11 11:30 | ED Respiratory ---
General Chief Complaint: Respiratory Problems Stated Complaint: SOA Nursing Triage Note: ARRIVED VIA EMS FROM [facility] WITH COMPLAINTS OF SOA AND DIZZINESS X2 WEEKS. PT STATES SHE IS TESTED FOR COVID EVERY TWO WEEKS AND HAS BEEN VACCINATED. Source: patient Exam Limitations: no limitations History of Present Illness Date Seen by Provider: Jun 11, 2020 Time Seen by Provider: 10:42 Initial Comments [facility] with report of shortness of air and dizziness for 2 weeks. Patient is in the assisted living section of the long-term care facility. She has had both her vaccinations and there is no current active cases in the facility. Patient does have history of CHF as well as COPD. Has had previous admission for CHF. States that for the last 2 weeks that she has been getting up a little dizzy and noted chest pressure that she describes only with breathing. She is normally on oxygen at 2 L and she wears that all the t karie including at night. This morning she was a bit more anxious and was only able to take 4 of her medications but she does not know what those were. She takes quite a few in the morning. She is a patient of Dr. Bhakta's. Chest pain is central and nonradiating and described pressure only with deep breathing. Denies nausea, vomiting, weakness, diaphoresis or other problems. She is wondering if maybe her CHF is acting up. She has grandson at bedside. Timing/Duration: week (2), getting worse, intermittent Severity: moderate Prior Episodes/Possible Cause: occasional episodes Modifying Factors: Worse With Activity; Improves With Rest Associated Symptoms: chest pain/soreness; No cough, No fever/chills, No nasal congestion, No nasal drainage; shortness of breath; No wheezing Allergies and Home Medications Allergies Coded Allergies: sertraline (Verified Allergy, Severe, CANNOT BREATHE, 03/14/17) Cephalosporins (Unverified Allergy, Mild, 03/14/17) Iodinated Contrast Media (Unverified Allergy, Mild, 03/14/17) Penicillins (Unverified Allergy, Mild, 03/14/17) Shellfish (Unverified Allergy, Mild, 03/14/17) atorvastatin (Unverified Allergy, Mild, 03/14/17) clarithromycin (Unverified Allergy, Mild, 03/14/17) codeine (Unverified Allergy, Mild, PT HAS RECEIVED HYDROMORPHONE IN THE PAST, 03/14/17) diltiazem (Unverified Allergy, Mild, 03/14/17) glucagon (Unverified Allergy, Mild, 03/14/17) lisinopril (Unverified Allergy, Mild, 03/14/17) morphine (Unverified Allergy, Mild, PT HAS RECEIVED HYDROMORPHONE IN THE PAST, 03/14/17) nifedipine (Unverified Allergy, Mild, 03/14/17) paroxetine (Unverified Allergy, Mild, 03/14/17) sulfamethoxazole (Unverified Allergy, Mild, 03/14/17) acetaminophen (Verified Allergy, Unknown, 03/14/17) benzocaine (Verified Allergy, Unknown, methemoglobinemia, 05/14/18) latex (Verified Allergy, Unknown, 03/14/17) meperidine (Verified Allergy, Unknown, PATIENT HAS RECEIVED FENTANYL IN THE PAST, 03/14/17) metoprolol (Verified Allergy, Unknown, 02/17/20) propoxyphene (Verified Allergy, Unknown, 03/14/17) sulindac (Verified Allergy, Unknown, 03/14/17) tramadol (Verified Allergy, Unknown, 04/12/17) Uncoded Allergies: TAPE (Allergy, Unknown, CAN USE PAPER TAPE, 12/08/08) Home Medications Acetaminophen 325 Mg Capsule, 650 MG PO Q4H PRN for PAIN-MILD (1-4), (Reported) Mhfbf-R-Utrubaivcmgtb 150 Unit Tablet, 150 UNIT PO TID, (Reported) Amlodipine Besylate 10 Mg Tablet, 10 MG PO HS, (Reported) Aspirin 81 Mg Tab.chew, 81 MG PO DAILY, (Reported) Calcium Carbonate 200 Mg Tab.chew, 400 MG PO Q4H PRN for UPSET STOMACH, (Reported) Cetirizine HCl 10 Mg Tablet, 10 MG PO DAILY PRN for ALLERGY SYMPTOMS, (Reported) Cholecalciferol (Vitamin D3) 125 Mcg Tablet, 125 MCG PO DAILY, (Reported) Cholestyramine/Aspartame 4 Gm Powd.pack, 4 GM PO DAILY PRN for DIARRHEA, (Reported) MIX WITH 4OZ OF LIQUID Citalopram Hydrobromide 20 Mg Tablet, 20 MG PO BID, (Reported) Clopidogrel Bisulfate 75 Mg Tablet, 75 MG PO DAILY, (Reported) Dextran 70/Hypromellose 1 Each Droperette, 1 DROP OU TID, (Reported) Diclofenac Sodium 100 Gm Gel..gram., 1 APPLIC TOP QID PRN for PAIN-BREAKTHROUGH, (Reported) APPLY TO AFFECTED JOINTS/TISSUE Diclofenac Sodium 100 Gm Gel..gram., 0 GM TOP QID PRN for PAIN-BREAKTHROUGH Prescribed by: HIRAL BHAKTA on 03/23/20957 Doxazosin Mesylate 2 Mg Tablet, 2 MG PO BID, (Reported) Ezetimibe 10 Mg Tablet, 10 MG PO DAILY, (Reported) Fenofibrate Nanocrystallized 145 Mg Tablet, 145 MG PO DAILY, (Reported) Fluorouracil 40 Gm Cr, 1 APPLIC TP BID PRN for SKIN CANCER, (Reported) APPLY TO AFFECTED SKIN ON FACE FOR 10 DAYS NEEDED Fluticasone Propionate 9.9 Ml [place].susp, 1 SPRAY NSEACH DAILY PRN for ALLERGY SYMPTOMS, (Reported) Furosemide 20 Mg Tablet, 20 MG PO TUE,,SAT, (Reported) Glipizide 5 Mg Tablet, 2.5 MG PO BID, (Reported) TAKES OF A 5MG TAB Hypromellose 10 Gm Gel..gram., 1 DROPS OU HS, (Reported) Ipratropium/Albuterol Sulfate 3 Ml Ampul.neb, 3 ML INH Q4HR PRN for SHORTNESS OF BREATH Prescribed by: HIRAL BHAKTA on 03/23/20957 Isosorbide Mononitrate 60 Mg Tab, 60 MG PO DAILY, (Reported) Lactobacillus Acidophilus 1 Each Capsule, 1 EACH PO DAILY, (Reported) Levothyroxine Sodium 125 Mcg Tablet, 125 MCG PO DAILY, (Reported) Lidocaine 1 Each Adh..patch, 1 EACH TP DAILY apply in morning, remove after 12 hours, use on site of shingles pain Prescribed by: HIRAL BHAKTA on 03/23/20957 Magnesium Oxide 250 Mg Tablet, 250 MG PO DAILY, (Reported) Meclizine HCl 25 Mg Tablet, 25 MG PO DAILY PRN for DIZZINESS, (Reported) Metoprolol Succinate 50 Mg Tab.er.24h, 50 MG PO DAILY Prescribed by: HIRAL BHAKTA on 03/23/20957 Nitroglycerin 0.4 Mg Tab.subl, 0.4 MG SL UD PRN for CHEST PAIN (ANGINA), (Reported) Nystatin 15 Gm Cream..g., 1 APPLIC TOP QID PRN for YEAST, (Reported) APPLY UNDER THE BREAST/CODY AREA Nystatin 100,000 Unit/1 Ml Oral.susp, 5 ML PO Q6HR use four times a day x 10 days Prescribed by: HIRAL BHAKTA on 03/23/20 0958 Ondansetron HCl 4 Mg Tablet, 4 MG PO TID PRN for NAUSEA/VOMITING-1ST LINE, (Reported) Oxycodone HCl/Acetaminophen 1 Each Tablet, 1-2 EA PO Q4H PRN for PAIN-MODERATE (5-7), (Reported) Pantoprazole Sodium 40 Mg Tablet.dr, 40 MG PO DAILY, (Reported) Phenazopyridine HCl 100 Mg Tablet, 100-200 MG PO TID PRN for BLADDER PAIN, (Reported) Polyethylene Glycol 3350 17 Gm Powd.pack, 17 GM PO DAILY PRN for CONSTIPATION- 1ST LINE, (Reported) Pravastatin Sodium 10 Mg Tablet, 10 MG PO Q48H, (Reported) TAKES AT 2000 Sodium Chloride 30 Ml [place], 1 SPRAY NSEACH BID PRN for CONGESTION, (Reported) Sucralfate 1 Gm Tablet, 1 GM PO QID, (Reported) MAKE INTO A SLURRY WITH A SMALL AMOUNT OF WATER Trimethoprim 100 Mg Tablet, 100 MG PO HS, (Reported) Patient Home Medication List Home Medication List Reviewed: Yes Review of Systems Review of Systems Constitutional: see HPI; No chills, No diaphoresis, No fever, No weakness EENTM: see HPI, no symptoms reported Respiratory: see HPI, dyspnea on exertion, short of breath; No wheezing Cardiovascular: chest pain, edema Gastrointestinal: No abdominal pain, No nausea, No vomiting Genitourinary: no symptoms reported Musculoskeletal: no symptoms reported Skin: no symptoms reported Psychiatric/Neurological: Anxiety; Denies Headache Hematologic/Lymphatic: No Symptoms Reported All Other Systems Reviewed Negative Unless Noted: Yes Past Gzxrbdm-Xzolhg-Sgmfls Hx Past Med/Social Hx: Reviewed Nursing Past Med/Soc Hx Patient Social History Alcohol Use: Denies Use Smoking Status: Never a Smoker Type Used: Cigarettes Former Smoker, Quit: Jan 30, 1966 2nd Hand Smoke Exposure: No Recent Infectious Disease Expo: No Recent Hopitalizations: No Immunizations Up To Date Tetanus Booster (TDap): More than 5yrs PED Vaccines UTD: No Date of Pneumonia Vaccine: Jan 22, 2019 Date of Influenza Vaccine: Jan 04, 2020 Seasonal Allergies Seasonal Allergies: Yes Past Medical History Surgeries: Yes Abdominal, Gallbladder Respiratory: No COPD Currently Using CPAP: No Currently Using BIPAP: No Cardiac: Yes Coronary Artery Disease, High Cholesterol, Hypertension Neurological: No Concussion, Headaches /Migraines 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 Disorders: No Female 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 Disorders: Denies [employer] History: Menopausal Sexually Transmitted Disease: No HIV/AIDS: No Genitourinary: Yes UTI-Chronic Gastrointestinal: Yes Gastroesophageal Reflux, Gastrointestinal Bleed, Chronic Diarrhea Musculoskeletal: Yes Arthritis Endocrine: Yes (THYROID NODULES-S/P THYROIDECTOMY) Hypothyroidsim, Diabetes, Non-Insulin dep HEENT: Yes (GLASSES) Loss of Vision: Denies Hearing Impairment: Denies Cancer: No Skin Did You Recieve Any Treatments: Yes What Type of Treatment Did You: Surgical Intervention Psychosocial: Yes Anxiety, Depression Integumentary: No Blood Disorders: No Adverse Reaction/Blood Tranf: No Family Medical History Reviewed Nursing Family Hx Arthritis G8 BROTHER G8 SISTER Cardiovascular disease 19 MOTHER Completed stroke G8 BROTHER G8 SISTER Congenital disease Dementia G8 SISTER Diabetes mellitus G8 BROTHER Hypertension 19 FATHER 19 MOTHER G8 BROTHER G8 SISTER Respiratory disorder G8 SISTER Heart Disease, Diabetes, Hypertension Physical Exam Vital Signs - First Documented 06/11/20 10:32 Temp 36.7 Pulse 71 Resp 16 B/P (MAP) 174/65 (101) Pulse Ox 94 O2 Delivery Nasal Cannula O2 Flow Rate 3.00 Capillary Refill : Less Than 3 Seconds Height: 5'3.00" Weight: 190lbs. 8.3oz. 86.600377ah; 32.00 BMI Method:Stated General Appearance: WD/WN, no apparent distress HEENT: PERRL/EOMI, pharynx normal Neck: full range of motion, supple Respiratory: no accessory muscle use, crackles (Crackles bilateral bases) Cardiovascular: regular rate, rhythm, no murmur Gastrointestinal: non tender, soft Extremities: non-tender, normal inspection, pedal edema (2+ to ankles bilateral) Neurologic/Psychiatric: alert, oriented x 3 Skin: normal color, warm/dry Progress/Results/Core Measures Suspected Sepsis Recent Fever Within 48 Hours: No Infection Criteria Present: None New/Unexplained Altered Menta: No Sepsis Screen: No Definite Risk SIRS Temperature: Pulse: 71 Respiratory Rate: 16 Laboratory Tests 06/11/20 10:40: White Blood Count 8.0 Blood Pressure 174 /65 Mean: 101 Laboratory Tests 06/11/20 10:40: Creatinine 1.84H, Platelet Count 261, Total Bilirubin 0.4 Results/Orders Lab Results Laboratory Tests Test 06/11/20 10:40 06/11/20 13:06 Range/Units White Blood Count 8.0 4.3-11.0 10^3/uL Red Blood Count 3.59 L 3.80-5.11 10^6/uL Hemoglobin 10.5 L 11.5-16.0 g/dL Hematocrit 34 L 35-52 % Mean Corpuscular Volume 95 80-99 fL Mean Corpuscular Hemoglobin 29 25-34 pg Mean Corpuscular Hemoglobin Concent 31 L 32-36 g/dL Red Cell Distribution Width 14.7 H 10.0-14.5 % Platelet Count 261 130-400 10^3/uL Mean Platelet Volume 9.7 9.0-12.2 fL Immature Granulocyte % (Auto) 1 % Neutrophils (%) (Auto) 84 H 42-75 % Lymphocytes (%) (Auto) 7 L 12-44 % Monocytes (%) (Auto) 5 0-12 % Eosinophils (%) (Auto) 3 0-10 % Basophils (%) (Auto) 1 0-10 % Neutrophils # (Auto) 6.7 1.8-7.8 10^3/uL Lymphocytes # (Auto) 0.5 L 1.0-4.0 10^3/uL Monocytes # (Auto) 0.4 0.0-1.0 10^3/uL Eosinophils # (Auto) 0.2 0.0-0.3 10^3/uL Basophils # (Auto) 0.1 0.0-0.1 10^3/uL Immature Granulocyte # (Auto) 0.1 0.0-0.1 10^3/uL Neutrophils % (Manual) 82 % Lymphocytes % (Manual) 6 % Monocytes % (Manual) 3 % Eosinophils % (Manual) 6 % Band Neutrophils 2 % Reactive Lymphocytes 1 % Blood Morphology Comment NORMAL Urine Color YELLOW Urine Clarity CLEAR Urine pH 6.0 5-9 Urine Specific [place] 1.020 1.016-1.022 Urine Protein NEGATIVE NEGATIVE Urine Glucose (UA) NEGATIVE NEGATIVE Urine Ketones NEGATIVE NEGATIVE Urine Nitrite POSITIVE H NEGATIVE Urine Bilirubin NEGATIVE NEGATIVE Urine Urobilinogen 0.2 < = 1.0 MG/DL Urine Leukocyte Esterase NEGATIVE NEGATIVE Urine RBC (Auto) NEGATIVE NEGATIVE Urine RBC NONE /HPF Urine WBC 2-5 /HPF Urine Squamous Epithelial Cells 2-5 /HPF Urine Crystals NONE /LPF Urine Bacteria LARGE H /HPF Urine Casts NONE /LPF Urine Mucus NEGATIVE /LPF Urine Culture Indicated YES Sodium Level 142 135-145 MMOL/L Potassium Level 4.3 3.6-5.0 MMOL/L Chloride Level 106 98-107 MMOL/L Carbon Dioxide Level 25 21-32 MMOL/L Anion Gap 11 5-14 MMOL/L Blood Urea Nitrogen 31 H 7-18 MG/DL Creatinine 1.84 H 0.60-1.30 MG/DL Estimat Glomerular Filtration Rate 26 BUN/Creatinine Ratio 17 Glucose Level 130 H 70-105 MG/DL Calcium Level 9.2 8.5-10.1 MG/DL Corrected Calcium 9.5 8.5-10.1 MG/DL Total Bilirubin 0.4 0.1-1.0 MG/DL Aspartate Amino Transf (AST/SGOT) 21 5-34 U/L Alanine Aminotransferase (ALT/SGPT) 12 0-55 U/L Alkaline Phosphatase 43 40-136 U/L Troponin I < 0.028 < 0.028 <0.028 NG/ML C-Reactive Protein High Sensitivity 3.07 H 0.00-0.50 MG/DL B-Type Natriuretic Peptide 563.4 H <100.0 PG/ML Total Protein 7.2 6.4-8.2 GM/DL Albumin 3.6 3.2-4.5 GM/DL My Orders Orders - SPENCER COURTNEY MD BNP (06/11/20 10:41) Comprehensive Metabolic Panel (06/11/20 10:41) Hs C Reactive Protein (06/11/20 10:41) Troponin I (06/11/20 10:41) Ed Iv/Invasive Line Start (06/11/20 10:41) Ekg Tracing (06/11/20 10:41) Monitor-Rhythm Ecg Trace Only (06/11/20 10:41) Chest 1 View, Ap/Pa Only (06/11/20 10:41) Cbc With Automated Diff (06/11/20 11:23) Ua Culture If Indicated (06/11/20 11:23) Furosemide Injection (Lasix Injection) (06/11/20 11:23) Manual Differential (06/11/20 10:40) Aspirin Chewable Tablet (Baby Aspirin Ch (06/11/20 11:31) Urine Culture (06/11/20 10:40) Troponin I (06/11/20 12:54) Lactic Acid Analyzer (06/11/20 13:50) Blood Culture (06/11/20 13:50) Meropenem (Merrem 500 Mg) (06/11/20 14:00) Vital Signs/I&O 06/11/20 10:32 Temp 36.7 Pulse 71 Resp 16 B/P (MAP) 174/65 (101) Pulse Ox 94 O2 Delivery Nasal Cannula O2 Flow Rate 3.00 Capillary Refill : Less Than 3 Seconds Blood Pressure Mean: 101 Progress Note : Progress Note Seen and evaluated. IV, labs, EKG and chest x-ray ordered. ASA 324 mg p.o. Lasix 40 mg IV ordered. Monitor patient. 1240: Patient still with shortness of breath and had chest pressure when breathing or moving about. We will repeat troponin and monitor her. Of note she does have nitrate positive findings on her urine. It does appear that she does have chronic urinary tract infections and she is currently on trimethoprim. Chart review shows multiple different organisms and she is known to be a chronic carrier. We will reevaluate with repeat troponin. 1355: I did discuss the findings at length with the patient and family. Patient states that she still getting quite short of breath with the chest pressure with breathing with any activity and she is concerned about that as she lives in assisted living. Family is concerned. Patient does have findings of acute on chronic heart failure with elevated BNP and findings on chest x-ray. She does have chronic kidney disease. I did discuss the case with Dr. Torrez and she accepts patient for admission superintendent transportation for Dr. Bhakta. Patient does have concerns for nitrite positive UTI and this may be the cause of the 2 weeks of dizziness and may be different than her chronic colonized infections that do not cause any significant harm to her. Given that she has had the dizziness since she is nitrate positive at this point (which she often is not) we will go ahead and treat this. Patient does not have findings of severe sepsis or septic shock but we have added blood cultures and lactic acid. No indication for high-volume fluid resuscitation and patient does show class III heart failure symptoms. Patient is not hypotensive. Otherwise stable for admission to medical floor. Admit, inpatient status. Patient and family agree with plan. I have consulted Dr. Gambino, on-call for Dr. Swift and he agrees to see the patient. Recommends Lasix 40 mg twice daily which was ordered. ECG Initial ECG Impression Date: Jun 11, 2020 Initial ECG Impression Time: 10:43 Initial ECG Rate: 70 Initial ECG Rhythm: Normal Sinus Initial ECG Impression: Normal Initial ECG Comparisson: Unchanged Comment Sinus rhythm with normal axis. No evidence of ST elevation NC. Similar to previous. Interpreted by me. Diagnostic Imaging Diagonstic Imaging: Xray Plain Films/CT/US/NM/MRI: chest Comments [facility], [place] NAME: [facility] REC#: [id number] PT STATUS: REG ER : 1935 PHYSICIAN: SPENCER COURTNEY MD ADMIT DATE: 06/11/20/ER Draft Date of Exam:06/11/20 CHEST 1 VIEW, AP/PA ONLY INDICATION: Shortness of air. TIME OF EXAM: 11:19 AM COMPARISON is made with prior chest from 03/19/2020. Heart size is stable. There is elevation of the right hemidiaphragm. The interstitial markings are prominent throughout both lungs. This appears to be somewhat increased since the study from March. Interstitial infiltrates or mild congestive failure cannot be excluded. There is no effusion or pneumothorax. IMPRESSION: Interstitial changes, as described. These are increased since exam from 03/19/2020. Dictated on workstation # [id number] Dict: 06/11/20 1127 Trans: 06/11/20 1131 [facility] [id number] Interpreted by: JAIME MERCHANT MD Electronically signed by: Departure Communication (Admissions) Time/Spoke to Admitting Phy: 13:47 Time/Spoke to Consulting Phy: 13:55 Impression Primary Impression: Acute on chronic heart failure Qualified Codes: I50.9 - Heart failure, unspecified Additional Impression: UTI (urinary tract infection) Qualified Codes: N30.00 - Acute cystitis without hematuria Disposition: ADMITTED INPATIENT Condition: Stable Admissions Decision to Admit Reason: Admit from ER (General) Decision to Admit/Date: Jun 11, 2020 Time/Decision to Admit Time: 13:47 Departure-Patient Inst. Referrals: HIRAL BHAKTA MD (PCP/Family) Primary Care Physician SPENCER COURTNEY MD Jun 11, 2020 11:30
[2020-06-11] MEDS ORDERED: ASPIRIN 81 MG CHEW (CHILDREN'S ASA) PO STA (11:31)
[2020-06-11 11:33] LABS: BAND NEUTROPHILS 2 %; EOSINOPHILS % (MANUAL) 6 %; LYMPHOCYTES % (MANUAL) 6 %; MONOCYTES % (MANUAL) 3 %; NEUTROPHILS % (MANUAL) 82 %; RBC MORPH NORMAL; REACTIVE LYMPHOCYTES 1 %
[2020-06-11 11:39] LABS: BACTERIA,URINE LARGE /HPF
[2020-06-11] MEDS ORDERED: MEROPENEM 500 MG in WATER (STERILE) FOR INJECTION 10 ML IV ONE (14:00)
[2020-06-11 14:45] VITALS: BP 193/67
[2020-06-11 15:45] VITALS: BP 184/70
[2020-06-11] MEDS ORDERED: CATHETER FLUSH 10 ML SYR IV PRN (16:15)
[2020-06-11] MEDS: FUROSEMIDE 40 MG/4 ML INJ (LASIX) IV SCH (17:21)
[2020-06-11 19:47] VITALS: BP 158/78
[2020-06-11] MEDS: CATHETER FLUSH 10 ML SYR IV SCH (22:31)
[2020-06-12 00:58] VITALS: BP 150/72
[2020-06-12] MEDS: MEROPENEM 500 MG/SWFI 10 ML IV PUSH IV SCH ×4 (03:14→14:35)
[2020-06-12 03:55] VITALS: BP 155/69
[2020-06-12 05:48] LABS: BASOPHILS # (AUTO) 0.1 10^3/uL (0.0-0.1); BASOPHILS % (AUTO) 1 % (0-10); EOSINOPHILS # (AUTO) 0.3 10^3/uL (0.0-0.3); EOSINOPHILS % (AUTO) 4 % (0-10); HEMATOCRIT 32 % (35-52); LYMPHOCYTES # (AUTO) 0.5 10^3/uL (1.0-4.0); LYMPHOCYTES % (AUTO) 6 % (12-44); MEAN CORPUSCULAR HEMOGLOBIN 29 pg (25-34); MEAN CORPUSCULAR HGB CONC 31 g/dL (32-36); MEAN CORPUSCULAR VOLUME 94 fL (80-99); MEAN PLATELET VOLUME 9.3 fL (9.0-12.2); MONOCYTES # (AUTO) 0.5 10^3/uL (0.0-1.0); MONOCYTES % (AUTO) 7 % (0-12); NEUTROPHILS # (AUTO) 5.9 10^3/uL (1.8-7.8); NEUTROPHILS % (AUTO) 81 % (42-75); PLATELET COUNT 260 10^3/uL (130-400); WHITE BLOOD COUNT 7.3 10^3/uL (4.3-11.0)
[2020-06-12 06:10] LABS: CALCIUM 8.8 MG/DL (8.5-10.1); CREATININE SERUM 1.71 MG/DL (0.60-1.30); POTASSIUM 3.6 MMOL/L (3.6-5.0)
[2020-06-12] MEDS: CATHETER FLUSH 10 ML SYR IV SCH ×3 (06:28→21:17)
[2020-06-12] MEDS: FUROSEMIDE 40 MG/4 ML INJ (LASIX) IV SCH ×2 (06:53→16:08)
[2020-06-12 08:10] VITALS: BP 145/65
[2020-06-12] MEDS: CLOPIDOGREL 75 MG (PLAVIX) TABLET PO SCH (08:53)
[2020-06-12] MEDS ORDERED: ASPIRIN 325 MG (5 GR) TABLET PO SCH (09:00)
[2020-06-12] MEDS ORDERED: RT-ALBUTEROL/IPRATROPIUM 3 ML (DUONEB) VIAL INH PRN (10:30)
[2020-06-12] MEDS ORDERED: NON-FORMULARY MEDICATION 1 EA EA (Fluticasone Propionate (Flonase Allergy Relief) 1 SPRAY) NSEACH PRN (10:30)
[2020-06-12] MEDS ORDERED: NON-FORMULARY MEDICATION 1 EA EA (Cetirizine HCl 10 MG) PO PRN (10:30)
[2020-06-12] MEDS ORDERED: CHOLESTYRAMINE 4 GM (QUESTRAN LITE, PREVALITE) PKT PO PRN (10:30)
[2020-06-12] MEDS ORDERED: DICLOFENAC 1% GEL 100 GM (VOLTAREN) TUBE TOP PRN (10:30)
[2020-06-12] MEDS ORDERED: polyethylene glycoL POWDER 17 GM (MIRALAX) PACK PO PRN (10:30)
[2020-06-12] MEDS ORDERED: NON-FORMULARY MEDICATION 1 EA EA (Acetaminophen (Tylenol) 650 MG) PO PRN (10:30)
[2020-06-12] MEDS ORDERED: LORATADINE (CLARITIN) 10 MG TAB PO PRN (10:45)
--- NOTE | 2020-06-12 10:49 | History & Physical ---
History of Present Illness History of Present Illness Reason for visit/HPI This is an 84 year old female patient of Dr. 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 She was brought to the ER yesterday by EMS from the half-way with report of shortness of air and dizziness for 2 weeks. Patient is in the assisted living section of the long-term care facility. She has had both her vaccinations and there is no current active COVID cases in the facility. Patient does have history of CHF as well as COPD. She has had previous admission for CHF. States that for the last 2 weeks that she has been getting up a little dizzy and noted chest pressure that she describes only with breathing. She is normally on oxygen at 2 L and she wears that all the time including at night. This morning she was a bit more anxious and was only able to take 4 of her medications. Apparently she is more anxious because her daugher is out of town. Her chest pain is central and nonradiating and described as pressure only with deep breathing. Denies nausea or vomiting. She was found to be in mildly decompensated CHF as well as found to have a UTI. Her last 4 UTIs have grown out 4 different bacteria. She will be admitted for IV diuresis and will cover with IV meropenem until urine culture results back. Date of Admission Jun 11, 2020 at 14:11 Date Seen by a Provider: Jun 12, 2020 Time Seen by a Provider: 10:39 I consulted on this patient on 06/12/20 10:39 Attending Physician Jessica Torrez DO Admitting Physician Hiral Bhakta MD Consult Allergies and Home Medications Allergies Coded Allergies: sertraline (Verified Allergy, Severe, CANNOT BREATHE, 03/14/17) Cephalosporins (Unverified Allergy, Mild, 03/14/17) Iodinated Contrast Media (Unverified Allergy, Mild, 03/14/17) Penicillins (Unverified Allergy, Mild, 03/14/17) Shellfish (Unverified Allergy, Mild, 03/14/17) atorvastatin (Unverified Allergy, Mild, 03/14/17) clarithromycin (Unverified Allergy, Mild, 03/14/17) codeine (Unverified Allergy, Mild, PT HAS RECEIVED HYDROMORPHONE IN THE PAST, 03/14/17) diltiazem (Unverified Allergy, Mild, 03/14/17) glucagon (Unverified Allergy, Mild, 03/14/17) lisinopril (Unverified Allergy, Mild, 03/14/17) morphine (Unverified Allergy, Mild, PT HAS RECEIVED HYDROMORPHONE IN THE PAST, 03/14/17) nifedipine (Unverified Allergy, Mild, 03/14/17) paroxetine (Unverified Allergy, Mild, 03/14/17) sulfamethoxazole (Unverified Allergy, Mild, 03/14/17) acetaminophen (Verified Allergy, Unknown, 03/14/17) benzocaine (Verified Allergy, Unknown, methemoglobinemia, 05/14/18) latex (Verified Allergy, Unknown, 03/14/17) meperidine (Verified Allergy, Unknown, PATIENT HAS RECEIVED FENTANYL IN THE PAST, 03/14/17) metoprolol (Verified Allergy, Unknown, 02/17/20) propoxyphene (Verified Allergy, Unknown, 03/14/17) sulindac (Verified Allergy, Unknown, 03/14/17) tramadol (Verified Allergy, Unknown, 04/12/17) Uncoded Allergies: TAPE (Allergy, Unknown, CAN USE PAPER TAPE, 12/08/08) Home Medications Acetaminophen 325 Mg Capsule, 650 MG PO Q4H PRN for PAIN-MILD (1-4), (Reported) Zabte-H-Gfdhuzunqanhk 150 Unit Tablet, 150 UNIT PO TID, (Reported) Amlodipine Besylate 10 Mg Tablet, 10 MG PO HS, (Reported) Aspirin 81 Mg Tab.chew, 81 MG PO DAILY, (Reported) Calcium Carbonate 200 Mg Tab.chew, 400 MG PO Q4H PRN for UPSET STOMACH, (Reported) Cetirizine HCl 10 Mg Tablet, 10 MG PO DAILY PRN for ALLERGY SYMPTOMS, (Reported) Cholecalciferol (Vitamin D3) 125 Mcg Tablet, 125 MCG PO DAILY, (Reported) Cholestyramine/Aspartame 4 Gm Powd.pack, 4 GM PO DAILY PRN for DIARRHEA, (Repor vitaliy) MIX WITH 4OZ OF LIQUID Citalopram Hydrobromide 20 Mg Tablet, 20 MG PO BID, (Reported) Clopidogrel Bisulfate 75 Mg Tablet, 75 MG PO DAILY, (Reported) Dextran 70/Hypromellose 1 Each Droperette, 1 DROP OU TID, (Reported) Diclofenac Sodium 100 Gm Gel..gram., 1 APPLIC TOP QID PRN for PAIN-BREAKTHROUGH, (Reported) APPLY TO AFFECTED JOINTS/TISSUE Diclofenac Sodium 100 Gm Gel..gram., 0 GM TOP QID PRN for PAIN-BREAKTHROUGH Prescribed by: HIRAL BHAKTA on 03/23/20957 Doxazosin Mesylate 2 Mg Tablet, 2 MG PO BID, (Reported) Ezetimibe 10 Mg Tablet, 10 MG PO DAILY, (Reported) Fenofibrate Nanocrystallized 145 Mg Tablet, 145 MG PO DAILY, (Reported) Fluorouracil 40 Gm Cr, 1 APPLIC TP BID PRN for SKIN CANCER, (Reported) APPLY TO AFFECTED SKIN ON FACE FOR 10 DAYS NEEDED Fluticasone Propionate 9.9 Ml [place].susp, 1 SPRAY NSEACH DAILY PRN for ALLERGY SYMPTOMS, (Reported) Furosemide 20 Mg Tablet, 20 MG PO TUE,,SAT, (Reported) Glipizide 5 Mg Tablet, 2.5 MG PO BID, (Reported) TAKES OF A 5MG TAB Hypromellose 10 Gm Gel..gram., 1 DROPS OU HS, (Reported) Ipratropium/Albuterol Sulfate 3 Ml Ampul.neb, 3 ML INH Q4HR PRN for SHORTNESS OF BREATH Prescribed by: HIRAL BHAKTA on 03/23/20957 Isosorbide Mononitrate 60 Mg Tab, 60 MG PO DAILY, (Reported) Lactobacillus Acidophilus 1 Each Capsule, 1 EACH PO DAILY, (Reported) Levothyroxine Sodium 125 Mcg Tablet, 125 MCG PO DAILY, (Reported) Lidocaine 1 Each Adh..patch, 1 EACH TP DAILY apply in morning, remove after 12 hours, use on site of shingles pain Prescribed by: HIRAL BHAKTA on 03/23/20957 Magnesium Oxide 250 Mg Tablet, 250 MG PO DAILY, (Reported) Meclizine HCl 25 Mg Tablet, 25 MG PO DAILY PRN for DIZZINESS, (Reported) Metoprolol Succinate 50 Mg Tab.er.24h, 50 MG PO DAILY Prescribed by: HIRAL BHAKTA on 03/23/20957 Nitroglycerin 0.4 Mg Tab.subl, 0.4 MG SL UD PRN for CHEST PAIN (ANGINA), (Reported) Nystatin 15 Gm Cream..g., 1 APPLIC TOP QID PRN for YEAST, (Reported) APPLY UNDER THE BREAST/CODY AREA Nystatin 100,000 Unit/1 Ml Oral.susp, 5 ML PO Q6HR use four times a day x 10 days Prescribed by: HIRAL BHAKTA on 03/23/20 0958 Ondansetron HCl 4 Mg Tablet, 4 MG PO TID PRN for NAUSEA/VOMITING-1ST LINE, (Reported) Oxycodone HCl/Acetaminophen 1 Each Tablet, 1-2 EA PO Q4H PRN for PAIN-MODERATE (5-7), (Reported) Pantoprazole Sodium 40 Mg Tablet.dr, 40 MG PO DAILY, (Reported) Phenazopyridine HCl 100 Mg Tablet, 100-200 MG PO TID PRN for BLADDER PAIN, (Reported) Polyethylene Glycol 3350 17 Gm Powd.pack, 17 GM PO DAILY PRN for CONSTIPATION- 1ST LINE, (Reported) Pravastatin Sodium 10 Mg Tablet, 10 MG PO Q48H, (Reported) TAKES AT 2000 Sodium Chloride 30 Ml [place], 1 SPRAY NSEACH BID PRN for CONGESTION, (Reported) Sucralfate 1 Gm Tablet, 1 GM PO QID, (Reported) MAKE INTO A SLURRY WITH A SMALL AMOUNT OF WATER Trimethoprim 100 Mg Tablet, 100 MG PO HS, (Reported) Patient Home Medication List Home Medication List Reviewed: Yes Past Rdfpxgx-[id number]-Phhkhm Hx Past Med/Social Hx: Reviewed Nursing Past Med/Soc Hx Patient Social History Alcohol Use: Denies Use Recreational Drug Use: No Smoking Status: Never a Smoker Former Smoker, Quit: Jan 30, 1966 Type Used: Cigarettes 2nd Hand Smoke Exposure: No Recent Foreign Travel: No Contact w/other who traveled: No Recent Hopitalizations: No Recent Infectious Disease Expo: No Immunizations Up To Date Tetanus Booster (TDap): More than 5yrs Pediatric: No Date of Pneumonia Vaccine: Jan 22, 2019 Date of Influenza Vaccine: Jan 04, 2020 Seasonal Allergies Seasonal Allergies: Yes Past Medical History Surgeries: Abdominal, Gallbladder Currently Using CPAP: No Currently Using BIPAP: No Cardiac: Coronary Artery Disease, High Cholesterol, Hypertension Neurological: Concussion, Headaches /Migraines 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: No Sexually Transmitted Disease: No HIV/AIDS: No Female 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 Disorders: Denies Menopausal Genitourinary: UTI-Chronic Gastrointestinal: Gastroesophageal Reflux, Gastrointestinal Bleed, Chronic Diarrhea Musculoskeletal: Arthritis Endocrine: Hypothyroidsim, Diabetes, Non-Insulin dep Loss of Vision: Denies Hearing Impairment: Denies Cancer: Skin Did You Recieve Any Treatments: Yes What Type of Treatment Did You: Surgical Intervention Psychosocial: Anxiety, Depression History of Blood Disorders: No Adverse Reaction to Blood [place]: No Family History Reviewed Nursing Family Hx Arthritis G8 BROTHER G8 SISTER Cardiovascular disease 19 MOTHER Completed stroke G8 BROTHER G8 SISTER Congenital disease Dementia G8 SISTER Diabetes mellitus G8 BROTHER Hypertension 19 FATHER 19 MOTHER G8 BROTHER G8 SISTER Respiratory disorder G8 SISTER Heart Disease, Diabetes, Hypertension Review of Systems Constitutional: weakness EENTM: No see HPI, No no symptoms reported, No ear discharge, No hearing loss, No ear pain, No blurred vision, No double vision, No eye pain, No tearing, No vision loss, No dental problems, No hoarseness, No mouth pain, No mouth swelling, No epistaxis, No nose congestion, No nose pain, No throat pain, No throat swelling, No other Respiratory: dyspnea on exertion, short of breath Cardiovascular: chest pain Gastrointestinal: No RUQ, No LUQ, No RLQ, No LLQ, No no symptoms reported, No see HPI, No abdominal pain, No constipation, No diarrhea, No dysphagia, No hematemesis, No heartburn, No jaundice, No loss of appetite, No melena, No nausea, No vomiting, No other Genitourinary: No no symptoms reported, No see HPI, No decreased output, No discharge, No dysuria, No frequency, No hematuria, No hesitancy, No incontinence, No nocturia, No pain, No other Musculoskeletal: No no symptoms reported, No see HPI, No back pain, No gout, No joint pain, No joint swelling, No muscle pain, No muscle stiffness, No muscle cramps, No muscle twitching, No muscle weakness, No neck pain, No other Skin: No no symptoms reported, No see HPI, No change in color, No change in hair/nails, No dryness, No hx of skin cancer, No lesions, No lumps, No pruritus, No rash, No other Psychiatric/Neurological: Anxiety Physical Exam Vital Signs Vital Signs - First Documented 06/11/20 10:32 Temp 36.7 Pulse 71 Resp 16 B/P (MAP) 174/65 (101) Pulse Ox 94 O2 Delivery Nasal Cannula O2 Flow Rate 3.00 Capillary Refill : Less Than 3 Seconds Height, Weight, BMI Height: 5'3.00" Weight: 190lbs. 8.3oz. [id number]; 33.95 BMI Method:Stated General Appearance: No Apparent Distress HEENT: Normal ENT Inspection Neck: Supple Respiratory: Lungs Clear Cardiovascular: Regular Rate, Rhythm, Systolic Murmur Gastrointestinal: Normal Bowel Sounds, Non Tender, Soft Rectal: Deferred Back: No CVA Tenderness Extremity: Non Tender, No Calf Tenderness, Pedal Edema (non-pitting) Neurologic/Psychiatric: Alert, Oriented x3 Skin: Warm/Dry Comments Laboratory Tests 06/11/20 13:06: Troponin I < 0.028 06/11/20 14:06: Lactic Acid Level 0.82 06/12/20 05:41: White Blood Count 7.3, Red Blood Count 3.41L, Hemoglobin 10.0L, Hematocrit 32L, Mean Corpuscular Volume 94, Mean Corpuscular Hemoglobin 29, Mean Corpuscular Hemoglobin Concent 31L, Red Cell Distribution Width 14.9H, Platelet Count 260, Mean Platelet Volume 9.3, Immature Granulocyte % (Auto) 1, Neutrophils (%) (Auto) 81H, Lymphocytes (%) (Auto) 6L, Monocytes (%) (Auto) 7, Eosinophils (%) (Auto) 4, Basophils (%) (Auto) 1, Neutrophils # (Auto) 5.9, Lymphocytes # (Auto) 0.5L, Monocytes # (Auto) 0.5, Eosinophils # (Auto) 0.3, Basophils # (Auto) 0.1, Immature Granulocyte # (Auto) 0.1, Sodium Level 142, Potassium Level 3.6, Chloride Level 100, Carbon Dioxide Level 28, Anion Gap 14, Blood Urea Nitrogen 29H, Creatinine 1.71H, Estimat Glomerular Filtration Rate 29, BUN/Creatinine Ratio 17, Glucose Level 84, Calcium Level 8.8 Assessment/Plan Assessment and Plan 1. Acute on Chronic Diastolic CHF--admit for IV diuresis, cardiology consult 2. Hypertension/History of CAD--resume previous home meds 3. Acute UTI with history of recurrent UTIs--cover with IV meropenem 4. COPD--resume SVNs 5. Acute on Chronic Kidney Disease--diurese and treat UTI and monitor BUN/Cr Admission Diagnosis Admission Status: Inpatient Order (span 2 midnights) Reason for Inpatient Admission: Will need IV abx until urine culture results as obtained as well as IV diuresis JESSICA TORREZ DO Jun 12, 2020 10:48
[2020-06-12] MEDS ORDERED: FLUTICASONE NASAL SPRAY (FLONASE) 16 GM BTL NS PRN (11:00)
[2020-06-12] MEDS: ARTIFICAL TEARS 0.4 ML UNIT DOSE (REFRESH PLUS) OU SCH ×2 (11:43→21:19)
[2020-06-12] MEDS: SUCRALFATE 1 GM (CARAFATE) TAB PO SCH ×3 (11:43→21:17)
[2020-06-12 11:55] VITALS: BP 162/70
--- NOTE | 2020-06-12 12:48 | Consultation-Cardiology ---
HPI-Cardiology Cardiology Consultation Date of Consultation 06/12/20 Date of Admission Time Seen by Provider: 12:42 Indication: chest pain, shortness of breath HPI 84 years old lady with history of hypertension, hyperlipidemia, she was brought from the emergency room due to increased shortness of breath and dizziness which has been progressive over the past 2 weeks. She reported that she has been having worsening dyspnea to the point that she required oxygen. On my evaluation she was sitting more comfortably, still having some dyspnea. Reported that she was having chest pain with pain on deep inspiration and movement. No palpitation. No syncope or near syncopal episodes. Home Medications & Allergies Allergies: Coded Allergies: sertraline (Verified Allergy, Severe, CANNOT BREATHE, 03/14/17) Cephalosporins (Unverified Allergy, Mild, 03/14/17) Iodinated Contrast Media (Unverified Allergy, Mild, 03/14/17) Penicillins (Unverified Allergy, Mild, 03/14/17) Shellfish (Unverified Allergy, Mild, 03/14/17) atorvastatin (Unverified Allergy, Mild, 03/14/17) clarithromycin (Unverified Allergy, Mild, 03/14/17) codeine (Unverified Allergy, Mild, PT HAS RECEIVED HYDROMORPHONE IN THE P AST, 03/14/17) diltiazem (Unverified Allergy, Mild, 03/14/17) glucagon (Unverified Allergy, Mild, 03/14/17) lisinopril (Unverified Allergy, Mild, 03/14/17) morphine (Unverified Allergy, Mild, PT HAS RECEIVED HYDROMORPHONE IN THE PAST, 03/14/17) nifedipine (Unverified Allergy, Mild, 03/14/17) paroxetine (Unverified Allergy, Mild, 03/14/17) sulfamethoxazole (Unverified Allergy, Mild, 03/14/17) acetaminophen (Verified Allergy, Unknown, 03/14/17) benzocaine (Verified Allergy, Unknown, methemoglobinemia, 05/14/18) latex (Verified Allergy, Unknown, 03/14/17) meperidine (Verified Allergy, Unknown, PATIENT HAS RECEIVED FENTANYL IN THE PAST, 03/14/17) metoprolol (Verified Allergy, Unknown, 02/17/20) propoxyphene (Verified Allergy, Unknown, 03/14/17) sulindac (Verified Allergy, Unknown, 03/14/17) tramadol (Verified Allergy, Unknown, 04/12/17) Uncoded Allergies: TAPE (Allergy, Unknown, CAN USE PAPER TAPE, 12/08/08) Home Medication List Reviewed: Yes QSZ-Eoqdot-Fwyefc Hx Patient Social History Recreational Drug Use: No Smoking Status: Never a Smoker Former smoker/When Quit: Jun 01, 1966 Type Used: Cigarettes 2nd Hand Smoke Exposure: No Recent Hopitalizations: No Have you traveled recently?: No Alcohol Use?: No Immunizations Up To Date Tetanus Booster (TDap): More than 5yrs Date of Pneumonia Vaccine: Jan 22, 2019 Date of Influenza Vaccine: Jan 04, 2020 Past Medical History Discussed below Family Medical History Significant Family History: Heart Disease, Diabetes, Hypertension Family History: Arthritis G8 BROTHER G8 SISTER Cardiovascular disease 19 MOTHER Completed stroke G8 BROTHER G8 SISTER Congenital disease Dementia G8 SISTER Diabetes mellitus G8 BROTHER Hypertension 19 FATHER 19 MOTHER G8 BROTHER G8 SISTER Respiratory disorder G8 SISTER Review of Systems-General Review of Systems Constitutional: see HPI, weakness EENTM: No see HPI, No no symptoms reported, No ear discharge, No hearing loss, No ear pain, No blurred vision, No double vision, No eye pain, No tearing, No vision loss, No dental problems, No hoarseness, No mouth pain, No mouth swelling, No epistaxis, No nose congestion, No nose pain, No throat pain, No throat swelling, No other Respiratory: see HPI; No cough; dyspnea on exertion; No hemoptysis, No orthopnea, No phlegm; short of breath; No stridor, No wheezing, No other Cardiovascular: see HPI, chest pain; No edema, No Hx of Intervention, No palpitations, No syncope, No vascular heart diseas, No other Gastrointestinal: No RUQ, No LUQ, No RLQ, No LLQ, No no symptoms reported, No see HPI, No abdominal pain, No constipation, No diarrhea, No dysphagia, No hematemesis, No heartburn, No jaundice, No loss of appetite, No melena, No nausea, No vomiting, No other Genitourinary: No no symptoms reported, No see HPI, No decreased output, No discharge, No dysuria, No frequency, No hematuria, No hesitancy, No incontinence, No nocturia, No pain, No other Musculoskeletal: No no symptoms reported, No see HPI, No back pain, No gout, No joint pain, No joint swelling, No muscle pain, No muscle stiffness, No muscle cramps, No muscle twitching, No muscle weakness, No neck pain, No other Skin: No no symptoms reported, No see HPI, No change in color, No change in hair/nails, No dryness, No hx of skin cancer, No lesions, No lumps, No pruritus, No rash, No other Psychiatric/Neurological: Anxiety All Other Systems Reviewed Negative Unless Noted: Yes Reviewed Test Results Reviewed Test Results Lab Laboratory Tests Test 06/11/20 13:06 06/11/20 14:06 06/12/20 05:41 Range/Units Troponin I < 0.028 <0.028 NG/ML Lactic Acid Level 0.82 0.50-2.00 MMOL/L White Blood Count 7.3 4.3-11.0 10^3/uL Red Blood Count 3.41 L 3.80-5.11 10^6/uL Hemoglobin 10.0 L 11.5-16.0 g/dL Hematocrit 32 L 35-52 % Mean Corpuscular Volume 94 80-99 fL Mean Corpuscular Hemoglobin 29 25-34 pg Mean Corpuscular Hemoglobin Concent 31 L 32-36 g/dL Red Cell Distribution Width 14.9 H 10.0-14.5 % Platelet Count 260 130-400 10^3/uL Mean Platelet Volume 9.3 9.0-12.2 fL Immature Granulocyte % (Auto) 1 % Neutrophils (%) (Auto) 81 H 42-75 % Lymphocytes (%) (Auto) 6 L 12-44 % Monocytes (%) (Auto) 7 0-12 % Eosinophils (%) (Auto) 4 0-10 % Basophils (%) (Auto) 1 0-10 % Neutrophils # (Auto) 5.9 1.8-7.8 10^3/uL Lymphocytes # (Auto) 0.5 L 1.0-4.0 10^3/uL Monocytes # (Auto) 0.5 0.0-1.0 10^3/uL Eosinophils # (Auto) 0.3 0.0-0.3 10^3/uL Basophils # (Auto) 0.1 0.0-0.1 10^3/uL Immature Granulocyte # (Auto) 0.1 0.0-0.1 10^3/uL Sodium Level 142 135-145 MMOL/L Potassium Level 3.6 3.6-5.0 MMOL/L Chloride Level 100 98-107 MMOL/L Carbon Dioxide Level 28 21-32 MMOL/L Anion Gap 14 5-14 MMOL/L Blood Urea Nitrogen 29 H 7-18 MG/DL Creatinine 1.71 H 0.60-1.30 MG/DL Estimat Glomerular Filtration Rate 29 BUN/Creatinine Ratio 17 Glucose Level 84 70-105 MG/DL Calcium Level 8.8 8.5-10.1 MG/DL Physical Exam Physical Exam Vital Signs Vital Signs - First Documented 06/11/20 10:32 Temp 36.7 Pulse 71 Resp 16 B/P (MAP) 174/65 (101) Pulse Ox 94 O2 Delivery Nasal Cannula O2 Flow Rate 3.00 Capillary Refill : Less Than 3 Seconds Height, Weight, BMI Height: 5'3.00" Weight: 190lbs. 8.3oz. [id number]; 33.95 BMI Method:Stated General Appearance: No Apparent Distress Eyes: Bilateral Eye Normal Inspection, Bilateral Eye PERRL, Bilateral Eye EOMI HEENT: Normal ENT Inspection Neck: Supple Respiratory: Lungs Clear Cardiovascular: Regular Rate, Rhythm, No Edema, Systolic Murmur Gastrointestinal: Normal Bowel Sounds, Non Tender, Soft Rectal: Deferred Back: No CVA Tenderness Extremity: Non Tender, No Calf Tenderness, Pedal Edema (non-pitting) Neurologic/Psychiatric: Alert, Oriented x3 Skin: Warm/Dry Lymphatic: No Adenopathy A/P-Cardiology Admission Diagnosis Congestive heart failure, acute on chronic left ventricular diastolic dysfunction Moderate aortic stenosis Hypertension Chest pain nonspecific etiology Assessment/Plan Shortness of breath, probably secondary to pulmonary edema, reporting im provement, continue on diuretics and monitor Chest pain nonspecific etiology, probably musculoskeletal, had moderate diffuse coronary artery disease per cardiac catheterization in August 2019. Continue to monitor Congestive heart failure, acute on chronic left ventricular diastolic dysfunction, normal systolic function, nonischemic cardiomyopathy, continue on diuretics, restart home medication and monitor tolerance and response Aortic valve stenosis, moderate per echocardiogram, valve area 1.2-1.6 cm. C ontinue to monitor Echocardiogram done in March 2020 showing normal left ventricular size, EF 55-65 percent, grade 2 diastolic dysfunction, left atrial dilatation, mitral valve sclerosis, moderate aortic stenosis, pulmonary hypertension with PA pressure 45-50 mmHg. Continue to monitor Episode of dizziness and lightheadedness, history of orthostatic dizziness and weakness. Continue to monitor Acute on chronic renal insufficiency, chronic kidney disease stage III with diabetic nephropathy, started back on diuretics, monitor tolerance and response Hypertension, difficult to control. Intolerant to multiple medications, history of orthostatic dizziness and hypotension. Monitor closely. Coronary artery disease, had a cardiac catheterization done in [place] [address] Swift showing diffuse moderate coronary artery disease involving all her coronary system with 50 percent stenosis nonobstructive disease. Anemia, monitor H&H Diabetes mellitus, followed and managed by primary care physician History of recurrent UTI with multidrug resistance, managed by primary care team Degenerative joint disease History of intolerance to statin with intolerant to angiotensin receptor neeru Peripheral arterial disease bilateral peripheral angiography done with Dr. Oswald giordano showing significant obstructive disease Mild bilateral carotid stenosis, continue to monitor as outpatient. Chronic pedal edema with history of chronic venous insufficiency History of urinary incontinence KATHERYN DIANA MD Jun 12, 2020 12:48
[2020-06-12] MEDS ORDERED: DEXTRAN OU SCH (13:00)
[2020-06-12] MEDS ORDERED: HYPROMELLOSE OU SCH ×2 (13:00→21:00)
[2020-06-12] MEDS: glipiZIDE 5 MG (GLUCOTROL) TAB PO SCH (16:09)
[2020-06-12 16:19] VITALS: BP 197/83
[2020-06-12] MEDS: meTOproloL SUCCINATE 50 MG (TOPROL XL) TAB PO SCH (16:33)
[2020-06-12] MEDS: ISOSORBIDE MONONITRATE 60 MG (IMDUR) TAB PO SCH (16:33)
[2020-06-12] MEDS ORDERED: MECLIZINE 25 MG (ANTIVERT) TAB PO PRN (17:45)
[2020-06-12] MEDS ORDERED: MECLIZINE 25 MG (ANTIVERT) TAB ONE (18:04)
[2020-06-12 19:41] VITALS: BP 143/84
[2020-06-12] MEDS: doxAzosin 2 MG (CARDURA) TAB PO SCH (21:16)
[2020-06-12] MEDS: FENOFIBRATE 134 MG (LOFIBRA) CAPSULE PO SCH (21:16)
[2020-06-12] MEDS: amLODIPine 10 MG (NORVASC) TAB PO SCH (21:17)
[2020-06-13] VITALS (19 sets, daily range): BP systolic 90–187; BP diastolic 53–100
[2020-06-13] MEDS: MEROPENEM 500 MG/SWFI 10 ML IV PUSH IV SCH ×4 (02:53→14:03)
[2020-06-13 05:56] LABS: HEMOGLOBIN 9.8 g/dL (11.5-16.0); MEAN PLATELET VOLUME 9.8 fL (9.0-12.2); WHITE BLOOD COUNT 7.5 10^3/uL (4.3-11.0)
[2020-06-13 06:15] LABS: CALCIUM 8.6 MG/DL (8.5-10.1); CREATININE SERUM 1.92 MG/DL (0.60-1.30); MAGNESIUM 1.7 MG/DL (1.6-2.4); POTASSIUM 3.7 MMOL/L (3.6-5.0)
[2020-06-13] MEDS: FUROSEMIDE 40 MG/4 ML INJ (LASIX) IV SCH (06:43)
[2020-06-13] MEDS: CATHETER FLUSH 10 ML SYR IV SCH ×2 (06:43→14:04)
[2020-06-13] MEDS: glipiZIDE 5 MG (GLUCOTROL) TAB PO SCH ×2 (06:43→16:21)
[2020-06-13] MEDS: LEVOTHYROXINE 125 MCG (LEVOTHROID) TABLET PO SCH (06:44)
[2020-06-13] MEDS: SUCRALFATE 1 GM (CARAFATE) TAB PO SCH ×4 (06:44→20:19)
[2020-06-13] MEDS ORDERED: NS IV 1000 ML 1,000 ML ONE (07:41)
--- NOTE | 2020-06-13 07:42 | Progress Note ---
Subjective Subjective Date Seen by Provider: Jun 13, 2020 Time Seen by Provider: 07:10 Pt seen and examined. She was awake, laying in bed, NAD. She denies current SOB, chest pain. She does express that she experiences FAUSTIN with some chest pressure when getting up to use the bathroom. She also has episodes of dizziness eg after having a bowel movement, and states that closing her eyes stops the dizziness. Shortly after leaving her room, she was assisted to the bathroom by a [employer] CON[employer]OR FEEDER. She called for help and was found unconscious by the toilet. The CAN CONVEYOR FEEDER observed a large amount of blood clots per rectum. Rapid response was initiated. Her VS at the time were: 187/100 HR 107 O2 97% 2L NC. She was transferred to the ICU, labs drawn, General Surgery consulted for GI bleed. Review of Systems General: No Chills HEENT: No Head Aches, No Visual Changes Pulmonary: Dyspnea Cardiovascular: Chest Pain, Edema (moderate BLE) Gastrointestinal: Constipation; No: Nausea, Vomiting, Abdominal Pain Genitourinary: No Dysuria, No Hematuria Musculoskeletal: No: neck pain, back pain All Other Systems Reviewed All Other Systems Reviewed: Yes Objective Exam Vital Signs Vital Signs - First Documented 06/11/20 10:32 Temp 36.7 Pulse 71 Resp 16 B/P (MAP) 174/65 (101) Pulse Ox 94 O2 Delivery Nasal Cannula O2 Flow Rate 3.00 Capillary Refill : Less Than 3 Seconds General Appearance: No Apparent Distress, Chronically ill Eyes: Bilateral Eye Normal Inspection, Bilateral Eye PERRL, Bilateral Eye EOMI HEENT: PERRL/EOMI, Normal ENT Inspection, Pale Conjunctivae (L), Pale Conjunctivae (R) Neck: Full Range of Motion, Normal Inspection, Non Tender, Supple Respiratory: Chest Non Tender, Lungs Clear, Normal Breath Sounds, No Accessory Muscle Use, No Respiratory Distress Cardiovascular: Regular Rate, Rhythm, Bradycardia, Systolic Murmur Gastrointestinal: Normal Bowel Sounds, Non Tender, Soft Rectal: Deferred Back: Normal Inspection, No CVA Tenderness Extremity: Normal Inspection, Non Tender, No Calf Tenderness, Pedal Edema (moderate non-pitting BLE) Neurologic/Psychiatric: Alert, Oriented x3, Normal Mood/Affect Skin: Warm/Dry, Pallor Lymphatic: No Adenopathy Results Lab Laboratory Tests 06/13/20 05:45: White Blood Count 7.5, Red Blood Count 3.28L, Hemoglobin 9.8L, Hematocrit 31L, Mean Corpuscular Volume 94, Mean Corpuscular Hemoglobin 30, Mean Corpuscular Hemoglobin Concent 32, Red Cell Distribution Width 14.9H, Platelet Count 281, Mean Platelet Volume 9.8, Sodium Level 139, Potassium Level 3.7, Chloride Level 97L, Carbon Dioxide Level 29, Anion Gap 13, Blood Urea Nitrogen 36H, Creatinine 1.92H, Estimat Glomerular Filtration Rate 25, BUN/Creatinine Ratio 19, Glucose Level 91, Calcium Level 8.6, Magnesium Level 1.7 Microbiology 06/11/20 Blood Culture - Preliminary, Resulted No growth 06/11/20 Urine Culture - Preliminary, Resulted Escherichia coli Assessment/Plan Assessment/Plan Assessment and Plan GI bleed - large clots passed per rectum Acute exacerbation of diastolic CHF UTI Acute on chronic kidney failure - Cr 1.92 today, 1.71 yesterday HTN - Difficult to control, home meds and continue to monitor Anemia - Hgb 9.8 COPD HLD T2DM Cardiology following, continue diuresis Receiving Meropenem IV. Urine culture positive for E Coli CXR showed mild interstitial congestion General Surgery consulted for GI bleed Transferred to step-down Continue to monitor VS/labs Supervisory-Addendum Brief Verification & Attestation Participated in pt care: history, MDM, physical Personally performed: exam, history, MDM, supervision of care Care discussed with: Medical Student Procedures: n/a Results interpretation: Verified all documentation I HAVE PERSONALLY INTERVIEWED AND EXAMINED THE PATIENT. I AGREE WITH MEDICAL STUDENT DOCUMENTATION IN THE CHART. SEE MY ASSESSMENT AND PLAN FOLLOWS: ACUTE GASTROINTESTINAL BLEED ACUTE ON CHRONIC DIASTOLIC HEART FAILURE CHRONIC RECURRENT URINARY TRACT INFECTION HYPERTENSION ANEMIA ACUTE ON CHRONIC RENAL FAILURE DIABETES MELLITUS ACUTE GASTROINTESTINAL BLEED - CONSULT PLACED TO DR. UGARTE, SERIAL H AND H'S ORDERED, MONITOR SYMPTOMS CLOSELY, ANTICIPATE COLONOSCOPE PRIOR TO DISCHARGE - STOPPED ASA AND PLAVIX TODAY. ACUTE ON CHRONIC DIASTOLIC HEART FAILURE - PT ON LASIX, MONITOR SYMPTOMS CHRONIC RECURRENT URINARY TRACT INFECTION - PT ON MEROPENEM, CONTINUE CURRENT MANAGEMENT. HYPERTENSION - PT ON HOME REGIMEN ANEMIA - CHRONIC ANEMIA, HOWEVER WITH HER ACUTE GI BLEEDING - WILL CHECK SERIAL H AND H'S AND TRANSFUSE IF NEEDED. ACUTE ON CHRONIC RENAL FAILURE - MONITOR LABS, CONTINUE WITH LOW DOSE FLUIDS DIABETES MELLITUS - STABLE MARIELY GRIJALVA MED STUDENT Jun 13, 2020 07:42 HIRAL WOLF MD Jun 14, 2020 09:06
[2020-06-13] MEDS ORDERED: NS IV 1000 ML 1,000 ML IV SCH (07:45)
[2020-06-13 08:12] LABS: BASOPHILS # (AUTO) 0.1 10^3/uL (0.0-0.1); BASOPHILS % (AUTO) 1 % (0-10); EOSINOPHILS # (AUTO) 0.4 10^3/uL (0.0-0.3); EOSINOPHILS % (AUTO) 5 % (0-10); HEMATOCRIT 32 % (35-52); HEMOGLOBIN 9.8 g/dL (11.5-16.0); LYMPHOCYTES # (AUTO) 1.2 10^3/uL (1.0-4.0); LYMPHOCYTES % (AUTO) 14 % (12-44); MEAN CORPUSCULAR HEMOGLOBIN 29 pg (25-34); MEAN CORPUSCULAR HGB CONC 31 g/dL (32-36); MEAN CORPUSCULAR VOLUME 95 fL (80-99); MEAN PLATELET VOLUME 9.7 fL (9.0-12.2); MONOCYTES # (AUTO) 0.7 10^3/uL (0.0-1.0); MONOCYTES % (AUTO) 8 % (0-12); NEUTROPHILS # (AUTO) 6.2 10^3/uL (1.8-7.8); NEUTROPHILS % (AUTO) 70 % (42-75); PLATELET COUNT 308 10^3/uL (130-400); WHITE BLOOD COUNT 8.8 10^3/uL (4.3-11.0)
[2020-06-13] MEDS: ISOSORBIDE MONONITRATE 60 MG (IMDUR) TAB PO SCH (08:40)
[2020-06-13] MEDS: VITAMIN D3 125 MCG (5,000 UNITS) CAPSULE PO SCH (08:41)
[2020-06-13] MEDS: MAGNESIUM OXIDE (MAG-OX)400 MG TAB PO SCH (08:41)
[2020-06-13] MEDS: ARTIFICAL TEARS 0.4 ML UNIT DOSE (REFRESH PLUS) OU SCH ×3 (08:41→20:19)
[2020-06-13] MEDS: eZETimibe 10 MG (ZETIA) TABLET PO SCH (08:41)
[2020-06-13] MEDS: meTOproloL SUCCINATE 50 MG (TOPROL XL) TAB PO SCH (08:41)
[2020-06-13] MEDS: LACTOBACILLUS ACIDOPHILUS (PROBIOTIC) CAPSULE PO SCH (08:41)
[2020-06-13] MEDS: PANTOPRAZOLE 40 MG (PROTONIX) TAB PO SCH (08:41)
[2020-06-13] MEDS ORDERED: ASPIRIN 81 MG CHEW (CHILDREN'S ASA) PO SCH (09:00)
[2020-06-13] MEDS ORDERED: ISOSORBIDE MONONITRATE 60 MG (IMDUR) TAB PO SCH (09:00)
[2020-06-13] MEDS: CLOPIDOGREL 75 MG (PLAVIX) TABLET PO SCH (09:00)
[2020-06-13] MEDS ORDERED: NON-FORMULARY MEDICATION 1 EA EA (Magnesium Oxide 250 MG) PO SCH (09:00)
[2020-06-13] MEDS ORDERED: meTOproloL SUCCINATE 50 MG (TOPROL XL) TAB PO SCH (09:00)
[2020-06-13] MEDS: doxAzosin 2 MG (CARDURA) TAB PO SCH ×2 (09:00→20:19)
[2020-06-13] MEDS ORDERED: NON-FORMULARY MEDICATION 1 EA EA (Lactobacillus Acidophilus (Probiotic) 1 EACH) PO SCH (09:00)
[2020-06-13] MEDS ORDERED: CLOPIDOGREL 75 MG (PLAVIX) TABLET PO SCH (09:00)
[2020-06-13] MEDS ORDERED: NON-FORMULARY MEDICATION 1 EA EA (Fenofibrate Nanocrystallized (Fenofibrate) 145 MG) PO SCH (09:00)
[2020-06-13] MEDS ORDERED: IPRA3AMP31 NEB (09:13)
[2020-06-13] MEDS ORDERED: DICL100G27 TP (09:13)
[2020-06-13] MEDS ORDERED: METO50TA7 PO (09:13)
[2020-06-13] MEDS ORDERED: POTA10CA43 PO (09:13)
[2020-06-13] MEDS ORDERED: ALPH1TAB8 PO (09:13)
--- NOTE | 2020-06-13 10:02 | Cardiology Progress Note ---
Subjective Date Seen by Provider: Jun 13, 2020 Time Seen by Provider: 10:00 Subjective/Events-last exam Patient had a syncopal episode this morning, started to have bloody diarrhea Review of Systems General: No Chills, No Night Sweats; Fatigue, Malaise; No Appetite, No Other HEENT: No Head Aches, No Visual Changes, No Eye Pain, No Ear Pain, No Dysphasia, No Sinus Congestion, No Post Nasal Drip, No Sore Throat, No Other Pulmonary: Dyspnea; No Cough, No Pleuritic Chest Pain, No Other Cardiovascular: Lt Headedness; No: Chest Pain, Palpitations, Orthopnea, Paroxysmal Noc. Dyspnea, Edema, Other Focused Exam Lactate Level 06/11/20 14:06: Lactic Acid Level 0.82 Objective-Cardiology Exam Last Set of Vital Signs Vital Signs 06/13/20 06/13/20 07:15 08:20 Temp 36.0 Pulse 106 Resp 18 B/P (MAP) 122/71 (88) Pulse Ox 99 O2 Delivery Nasal Cannula O2 Flow Rate 2.00 Capillary Refill : Less Than 3 Seconds I&O Intake and Output 06/13/20 00:00 Intake Total 1455 ml Output Total 2500 ml Balance -1045 ml Intake Oral 1445 ml IV Total 10 ml Output Urine Total 2500 ml General: Alert, Oriented X3, Cooperative HEENT: Atraumatic, PERRLA Neck: Supple, No JVD, No Thyromegaly Lungs: Clear to Auscultation, Normal Air Movement Heart: Regular Rate, Normal S1, Normal S2, No Murmurs Abdomen: Normal Bowel Sounds, Soft, No Tenderness, No Hepatosplenomegaly, No Masses Extremities: No Clubbing, No Cyanosis, No Edema, Normal Pulses, No Tenderness/Swelling Skin: No Rashes, No Breakdown, No Significant Lesion Neuro: Normal Speech, Strength at 5/5 X4 Ext, Normal Tone, Sensation Intact Psych/Mental Status: Mental Status NL, Mood NL Results Lab Laboratory Tests 06/13/20 05:45 06/13/20 07:56 A/P-Cardiology Admission Diagnosis Congestive heart failure, acute on chronic left ventricular diastolic dysfunction Moderate aortic stenosis Hypertension Chest pain nonspecific etiology Assessment/Plan Shortness of breath, probably secondary to pulmonary edema, reporting improvement, continue on diuretics and monitor Acute lower GI bleed, bright red blood per rectum with syncopal episode, receiving IV fluid, transfer to cardiac stepdown, arrange for blood transfusion as needed, consult general surgery. Chest pain nonspecific etiology, probably musculoskeletal, had moderate diffuse coronary artery disease per cardiac catheterization in August 2019. Aspirin and Plavix are on hold starting June 13, 2020 secondary to GI bleed Congestive heart failure, acute on chronic left ventricular diastolic dy sfunction, normal systolic function, nonischemic cardiomyopathy, continue on diuretics, and tinea to monitor Aortic valve stenosis, moderate per echocardiogram, valve area 1.2-1.6 cm. Continue to monitor Echocardiogram done in March 2020 showing normal left ventricular size, EF 55-65 percent, grade 2 diastolic dysfunction, left atrial dilatation, mitral valve sclerosis, moderate aortic stenosis, pulmonary hypertension with PA pressure 45-50 mmHg. Continue to monitor Episode of dizziness and lightheadedness, history of orthostatic dizziness and weakness. Continue to monitor Acute on chronic renal insufficiency, chronic kidney disease stage III with diabetic nephropathy, started back on diuretics, monitor tolerance and response Hypertension, difficult to control. Intolerant to multiple medications, history of orthostatic dizziness and hypotension. Monitor closely. Coronary artery disease, had a cardiac catheterization done in [place] [address] Swift showing diffuse moderate coronary artery disease involving all her coronary system with 50 percent stenosis nonobstructive disease. Anemia, monitor H&H Diabetes mellitus, followed and managed by primary care physician History of recurrent UTI with multidrug resistance, managed by primary care team Degenerative joint disease History of intolerance to statin with intolerant to angiotensin receptor neeru Peripheral arterial disease bilateral peripheral angiography done with Dr. Monahan showing significant obstructive disease Mild bilateral carotid stenosis, continue to monitor as outpatient. Chronic pedal edema with history of chronic venous insufficiency History of urinary incontinence Clinical Quality Measures DVT/VTE Risk/Contraindication: Contraindications-Pharm: Other *list below* Other: gi bleed KATHERYN DIANA MD Jun 13, 2020 10:02
[2020-06-13 12:15] LABS: HEMOGLOBIN 8.7 g/dL (11.5-16.0)
--- NOTE | 2020-06-13 13:46 | Consultation - Surgery ---
MARV STEINER MED STUDENT 06/13/20 1346: History of Present Illness History of Present Illness Patient Consulted On(jose/time) 06/13/20 13:37 Date Seen by Provider: Jun 13, 2020 Time Seen by Provider: 13:30 Reason for Visit: chest pain, shortness of breath History of Present Illness Consult requested by Dr. Bhakta for blood in. Patient presented to the ED via EMS from the assisted living portion of [facility] with complaints of SOB and dizziness x 2 weeks. She'd also been complaining of chest pressure that was non radiating. She reports that she is chronically mildly SOB and 02 dependent usually on 2L due to COPD. She reports over the last two weeks her SOB has increased, especially with exertion. She reported being unable to catch her breath with any activity such as walking or changing positions. Reports orthopnea as well. She describes the chest pain as a pressure that is constant, worsened by exertional breathing, improved by resting. Reports dizziness x 2 weeks with no prior syncopal episodes until this am when on the toilet in the bathroom on the medical floor. This AM she reports that she accidently soiled herself in bed, and it was found to be bright red blood. She was assisted to the toilet in her room, where she subsequently passed a large amount of blood in her stool with clots and had a syncopal episode. She was then transferred to the stepdown unit. Currently denies chest pain, SOB, cough, fever, nausea, vomiting, and lightheadedness. Reports that she feels "OK". Denies pain at present time. States she's been eating and drinking well at home. Denies issues with BM's but does report having increased frequency urinating and frequent UTI's chronically. Allergies and Home Medications Allergies Coded Allergies: sertraline (Verified Allergy, Severe, CANNOT BREATHE, 03/14/17) Cephalosporins (Unverified Allergy, Mild, 03/14/17) Iodinated Contrast Media (Unverified Allergy, Mild, 03/14/17) Penicillins (Unverified Allergy, Mild, 03/14/17) Shellfish (Unverified Allergy, Mild, 03/14/17) atorvastatin (Unverified Allergy, Mild, 03/14/17) clarithromycin (Unverified Allergy, Mild, 03/14/17) codeine (Unverified Allergy, Mild, PT HAS RECEIVED HYDROMORPHONE IN THE PAST, 03/14/17) diltiazem (Unverified Allergy, Mild, 03/14/17) glucagon (Unverified Allergy, Mild, 03/14/17) lisinopril (Unverified Allergy, Mild, 03/14/17) morphine (Unverified Allergy, Mild, PT HAS RECEIVED HYDROMORPHONE IN THE PAST, 03/14/17) nifedipine (Unverified Allergy, Mild, 03/14/17) paroxetine (Unverified Allergy, Mild, 03/14/17) sulfamethoxazole (Unverified Allergy, Mild, 03/14/17) acetaminophen (Verified Allergy, Unknown, 03/14/17) benzocaine (Verified Allergy, Unknown, methemoglobinemia, 05/14/18) latex (Verified Allergy, Unknown, 03/14/17) meperidine (Verified Allergy, Unknown, PATIENT HAS RECEIVED FENTANYL IN THE PAST, 03/14/17) metoprolol (Verified Allergy, Unknown, 02/17/20) propoxyphene (Verified Allergy, Unknown, 03/14/17) sulindac (Verified Allergy, Unknown, 03/14/17) tramadol (Verified Allergy, Unknown, 04/12/17) Uncoded Allergies: TAPE (Allergy, Unknown, CAN USE PAPER TAPE, 12/08/08) Home Medications Acetaminophen 325 Mg Capsule, 650 MG PO Q4H PRN for PAIN-MILD (1-4), (Reported) Olble-K-Nvdaqavdgjytr 150 Unit Tablet, 150 UNIT PO TID, (Reported) Amlodipine Besylate 10 Mg Tablet, 10 MG PO HS, (Reported) Aspirin 81 Mg Tab.chew, 81 MG PO DAILY, (Reported) Cetirizine HCl 10 Mg Tablet, 10 MG PO DAILY PRN for ALLERGY SYMPTOMS, (Reported) Cholecalciferol (Vitamin D3) 125 Mcg Tablet, 125 MCG PO DAILY, (Reported) Cholestyramine/Aspartame 4 Gm Powd.pack, 4 GM PO DAILY PRN for DIARRHEA, (Reported) MIX WITH 4OZ OF LIQUID Citalopram Hydrobromide 20 Mg Tablet, 20 MG PO BID, (Reported) Clopidogrel Bisulfate 75 Mg Tablet, 75 MG PO DAILY, (Reported) Dextran 70/Hypromellose 1 Each Droperette, 1 DROP OU TID, (Reported) Diclofenac Sodium 100 Gm Gel..gram., 1 APPLIC TP QID PRN for PAIN-BREAKTHROUGH, (Reported) Doxazosin Mesylate 2 Mg Tablet, 2 MG PO BID, (Reported) Ezetimibe 10 Mg Tablet, 10 MG PO DAILY, (Reported) Fenofibrate Nanocrystallized 145 Mg Tablet, 145 MG PO DAILY, (Reported) Fluorouracil 40 Gm Cr, 1 APPLIC TP BID PRN for SKIN CANCER, (Reported) APPLY TO AFFECTED SKIN ON FACE Fluticasone Propionate 9.9 Ml Comstock.susp, 1 SPRAY NSEACH DAILY PRN for ALLERGY SYMPTOMS, (Reported) Furosemide 20 Mg Tablet, 20 MG PO Q48H, (Reported) Glipizide 5 Mg Tablet, 2.5 MG PO BID, (Reported) TAKES OF A 5MG TAB Ipratropium/Albuterol Sulfate 3 Ml Ampul.neb, 3 ML NEB Q4H PRN for SHORTNESS OF BREATH, (Reported) Isosorbide Mononitrate 60 Mg Tab, 60 MG PO DAILY, (Reported) Lactobacillus Acidophilus 1 Each Capsule, 1 EACH PO DAILY, (Reported) Levothyroxine Sodium 125 Mcg Tablet, 125 MCG PO DAILY, (Reported) Magnesium Oxide 250 Mg Tablet, 250 MG PO DAILY, (Reported) Meclizine HCl 25 Mg Tablet, 25 MG PO Q8H PRN for DIZZINESS, (Reported) Metoprolol Succinate 50 Mg Tab.er.24h, 50 MG PO DAILY, (Reported) Nitroglycerin 0.4 Mg Tab.subl, 0.4 MG SL UD PRN for CHEST PAIN (ANGINA), (Reported) Nystatin 15 Gm Cream..g., 1 APPLIC TOP QID PRN for YEAST, (Reported) APPLY UNDER THE BREAST/CODY AREA Ondansetron HCl 4 Mg Tablet, 4 MG PO TID PRN for NAUSEA/VOMITING-1ST LINE, (Reported) Oxycodone HCl/Acetaminophen 1 Each Tablet, 1-2 EA PO Q4H PRN for PAIN-MODERATE (5-7), (Reported) Pantoprazole Sodium 40 Mg Tablet.dr, 40 MG PO DAILY, (Reported) Phenazopyridine HCl 100 Mg Tablet, 200 MG PO TID PRN for BLADDER PAIN, (Reported) Polyethylene Glycol 3350 17 Gm Powd.pack, 17 GM PO DAILY PRN for CONSTIPATION- 1ST LINE, (Reported) Potassium Chloride 10 Meq Capsule.er, 10 MEQ PO Q48H, (Reported) Pravastatin Sodium 10 Mg Tablet, 10 MG PO Q48H, (Reported) TAKES AT 2000 Sodium Chloride 30 Ml Comstock, 1 SPRAY NSEACH BID PRN for CONGESTION, (Reported) Sucralfate 1 Gm Tablet, 1 GM PO QID, (Reported) Trimethoprim 100 Mg Tablet, 100 MG PO HS, (Reported) Past Whshhik-Sraqkd-Jkiokx Hx Patient Social History Smoking Status: Never a Smoker Former Smoker, Quit: Jan 30, 1966 Type Used: Cigarettes 2nd Hand Smoke Exposure: No Recent Hopitalizations: No Alcohol Use?: No Have you traveled recently?: No Immunizations Up To Date Tetanus Booster (TDap): More than 5yrs PED Vaccines UTD: No Date of Pneumonia Vaccine: Jan 22, 2019 Date of Influenza Vaccine: Jan 04, 2020 Seasonal Allergies Seasonal Allergies: Yes Surgeries History of Surgeries: Yes Surgeries: Abdominal, Gallbladder Respiratory History of Respiratory Disorde: No Respiratory Disorders: COPD Cardiovascular History of Cardiac Disorders: Yes Cardiac Disorders: Coronary Artery Disease, High Cholesterol, Hypertension Neurological History of Neurological Disord: No Neurological Disorders: Concussion, Headaches /Migraines 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 System Hx 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 Disorders: No Sexually Transmitted Disease: No HIV/AIDS: No Female 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 Disorders: Denies 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 Genitourinary History of Genitourinary Disor: Yes Genitourinary Disorders: UTI-Chronic Gastrointestinal History of Gastrointestinal Di: Yes Gastrointestinal Disorders: Gastroesophageal Reflux, Gastrointestinal Bleed, Chronic Diarrhea Musculoskeletal History of Musculoskeletal Dis: Yes Musculoskeletal Disorders: Arthritis Endocrine History of Endocrine Disorders: Yes (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, Diabetes, Non-Insulin dep HEENT History of HEENT Disorders: Yes (GLASSES) Loss of Vision: Denies Hearing Impairment: Denies Cancer History of Cancer: No Cancer: Skin Psychosocial History of Psychiatric Problem: Yes Behavioral Health Disorders: Anxiety, Depression Integumentary History of Skin or Integumenta: No Blood Transfusions History of Blood Disorders: No Adverse Reaction to a Blood Tr: No Family Medical History Significant Family History: Heart Disease, Diabetes, Hypertension Family Medial History: Arthritis G8 BROTHER G8 SISTER Cardiovascular disease 19 MOTHER Completed stroke G8 BROTHER G8 SISTER Congenital disease Dementia G8 SISTER Diabetes mellitus G8 BROTHER Hypertension 19 FATHER 19 MOTHER G8 BROTHER G8 SISTER Respiratory disorder G8 SISTER Review of Systems-General Constitutional: No chills, No diaphoresis; dizziness; No fever EENTM: No blurred vision, No double vision Respiratory: No cough; dyspnea on exertion, orthopnea, short of breath; No stridor, No wheezing Cardiovascular: see HPI, chest pain, edema Gastrointestinal: No abdominal pain, No constipation, No heartburn, No nausea, No vomiting Genitourinary: No dysuria; frequency; No hematuria Musculoskeletal: back pain, muscle stiffness Skin: no symptoms reported; No pruritus, No rash Psychiatric/Neurological: Denies Anxiety, Denies Depressed, Denies Headache, Denies Weakness All Other Systems Reviewed Negative Unless Noted: Yes Physical Exam-General Problems Physical Exam Vital Signs Vital Signs - First Documented 06/11/20 10:32 Temp 36.7 Pulse 71 Resp 16 B/P (MAP) 174/65 (101) Pulse Ox 94 O2 Delivery Nasal Cannula O2 Flow Rate 3.00 Capillary Refill : Less Than 3 Seconds General Appearance: WD/WN, no apparent distress Eyes: Bilateral Eye PERRL, Bilateral Eye EOMI HEENT: PERRL/EOMI, pharynx normal Neck: non-tender, supple Respiratory: chest non-tender, lungs clear, normal breath sounds, no respiratory distress, no accessory muscle use Cardiovascular: normal peripheral pulses, irregularly irregular Peripheral Pulses: 2+ Dorsalis Pedis (R), 2+ Left Dors-Pedis (L), 2+ Radial Pulses (R), 2+ Radial Pulses (L) Gastrointestinal: normal bowel sounds, non tender, soft; No distended, No guarding, No rebound Rectal: blood streaked stool, other (clots present ) Back: normal inspection, no CVA tenderness, no vertebral tenderness Extremities: normal range of motion, non-tender, normal capillary refill, pedal edema, swelling (1+ edema BLE) Neurologic/Psychiatric: no motor/sensory deficits, alert, normal mood/affect, oriented x 3 Skin: normal color, warm/dry Lymphatic: no adenopathy Data Review Labs Laboratory Tests 06/13/20 05:45: White Blood Count 7.5, Red Blood Count 3.28L, Hemoglobin 9.8L, Hematocrit 31L, Mean Corpuscular Volume 94, Mean Corpuscular Hemoglobin 30, Mean Corpuscular Hemoglobin Concent 32, Red Cell Distribution Width 14.9H, Platelet Count 281, Mean Platelet Volume 9.8, Sodium Level 139, Potassium Level 3.7, Chloride Level 97L, Carbon Dioxide Level 29, Anion Gap 13, Blood Urea Nitrogen 36H, Creatinine 1.92H, Estimat Glomerular Filtration Rate 25, BUN/Creatinine Ratio 19, Glucose Level 91, Calcium Level 8.6, Magnesium Level 1.7 06/13/20 07:56: White Blood Count 8.8, Red Blood Count 3.39L, Hemoglobin 9.8L, Hematocrit 32L, Mean Corpuscular Volume 95, Mean Corpuscular Hemoglobin 29, Mean Corpuscular Hemoglobin Concent 31L, Red Cell Distribution Width 14.8H, Platelet Count 308, Mean Platelet Volume 9.7, Immature Granulocyte % (Auto) 2, Neutrophils (%) (Auto) 70, Lymphocytes (%) (Auto) 14, Monocytes (%) (Auto) 8, Eosinophils (%) (Auto) 5, Basophils (%) (Auto) 1, Neutrophils # (Auto) 6.2, Lymphocytes # (Auto) 1.2, Monocytes # (Auto) 0.7, Eosinophils # (Auto) 0.4H, Basophils # (Auto) 0.1, Immature Granulocyte # (Auto) 0.2H 06/13/20 12:05: Hemoglobin 8.7L, Hematocrit 28L Microbiology 06/11/20 Blood Culture - Preliminary, Resulted No growth 06/11/20 Urine Culture - Final, Complete Escherichia coli Assessment/Plan Assessment/Plan Assessment/Plan GI bleed - large clots passed per rectum, likely lower Anemia Acute exacerbation of diastolic CHF UTI Afib Acute on chronic kidney failure HTN COPD HLD T2DM GERD Clear liquid diet Hold ASA and Plavix Trend CBC's Continue current medical management Cardiology following CXR showed mild interstitial congestion Possible colonoscopy if further bleeding/patient condition worsens Clinical Quality Measures DVT/VTE Risk/Contraindication: Contraindications-Pharm: Other *list below* Other: gi bleed MARYSE AGUILLON DO 06/13/201952: History of Present Illness History of Present Illness History of Present Illness Patient admitted with shortness of breath and dizziness for about 2 weeks. Patient states that she soiled herself in found she was having bloody bowel movement and had syncopal episode. She does not recall any bloody bowel movements previously. She states she has a some slight cramping in the lower abdomen. The blood she was having was bright red and clots she states. Currently she states she is feeling better. She has no other complaints at this time. She denies any nausea vomiting fever sweats chills shortness of breath or chest pain. Allergies and Home Medications Allergies Coded Allergies: sertraline (Verified Allergy, Severe, CANNOT BREATHE, 03/14/17) Cephalosporins (Unverified Allergy, Mild, 03/14/17) Iodinated Contrast Media (Unverified Allergy, Mild, 03/14/17) Penicillins (Unverified Allergy, Mild, 03/14/17) Shellfish (Unverified Allergy, Mild, 03/14/17) atorvastatin (Unverified Allergy, Mild, 03/14/17) clarithromycin (Unverified Allergy, Mild, 03/14/17) codeine (Unverified Allergy, Mild, PT HAS RECEIVED HYDROMORPHONE IN THE PAST, 03/14/17) diltiazem (Unverified Allergy, Mild, 03/14/17) glucagon (Unverified Allergy, Mild, 03/14/17) lisinopril (Unverified Allergy, Mild, 03/14/17) morphine (Unverified Allergy, Mild, PT HAS RECEIVED HYDROMORPHONE IN THE PAST, 03/14/17) nifedipine (Unverified Allergy, Mild, 03/14/17) paroxetine (Unverified Allergy, Mild, 03/14/17) sulfamethoxazole (Unverified Allergy, Mild, 03/14/17) acetaminophen (Verified Allergy, Unknown, 03/14/17) benzocaine (Verified Allergy, Unknown, methemoglobinemia, 05/14/18) latex (Verified Allergy, Unknown, 03/14/17) meperidine (Verified Allergy, Unknown, PATIENT HAS RECEIVED FENTANYL IN THE PAST, 03/14/17) metoprolol (Verified Allergy, Unknown, 02/17/20) propoxyphene (Verified Allergy, Unknown, 03/14/17) sulindac (Verified Allergy, Unknown, 03/14/17) tramadol (Verified Allergy, Unknown, 04/12/17) Uncoded Allergies: TAPE (Allergy, Unknown, CAN USE PAPER TAPE, 12/08/08) Home Medications Acetaminophen 325 Mg Capsule, 650 MG PO Q4H PRN for PAIN-MILD (1-4), (Reported) Etwby-J-Jprlyhyyveazm 150 Unit Tablet, 150 UNIT PO TID, (Reported) Amlodipine Besylate 10 Mg Tablet, 10 MG PO HS, (Reported) Aspirin 81 Mg Tab.chew, 81 MG PO DAILY, (Reported) Cetirizine HCl 10 Mg Tablet, 10 MG PO DAILY PRN for ALLERGY SYMPTOMS, (Reported) Cholecalciferol (Vitamin D3) 125 Mcg Tablet, 125 MCG PO DAILY, (Reported) Cholestyramine/Aspartame 4 Gm Powd.pack, 4 GM PO DAILY PRN for DIARRHEA, (Reported) MIX WITH 4OZ OF LIQUID Citalopram Hydrobromide 20 Mg Tablet, 20 MG PO BID, (Reported) Clopidogrel Bisulfate 75 Mg Tablet, 75 MG PO DAILY, (Reported) Dextran 70/Hypromellose 1 Each Droperette, 1 DROP OU TID, (Reported) Diclofenac Sodium 100 Gm Gel..gram., 1 APPLIC TP QID PRN for PAIN-BREAKTHROUGH, (Reported) Doxazosin Mesylate 2 Mg Tablet, 2 MG PO BID, (Reported) Ezetimibe 10 Mg Tablet, 10 MG PO DAILY, (Reported) Fenofibrate Nanocrystallized 145 Mg Tablet, 145 MG PO DAILY, (Reported) Fluorouracil 40 Gm Cr, 1 APPLIC TP BID PRN for SKIN CANCER, (Reported) APPLY TO AFFECTED SKIN ON FACE Fluticasone Propionate 9.9 Ml Comstock.susp, 1 SPRAY NSEACH DAILY PRN for ALLERGY SYMPTOMS, (Reported) Furosemide 20 Mg Tablet, 20 MG PO Q48H, (Reported) Glipizide 5 Mg Tablet, 2.5 MG PO BID, (Reported) TAKES OF A 5MG TAB Ipratropium/Albuterol Sulfate 3 Ml Ampul.neb, 3 ML NEB Q4H PRN for SHORTNESS OF BREATH, (Reported) Isosorbide Mononitrate 60 Mg Tab, 60 MG PO DAILY, (Reported) Lactobacillus Acidophilus 1 Each Capsule, 1 EACH PO DAILY, (Reported) Levothyroxine Sodium 125 Mcg Tablet, 125 MCG PO DAILY, (Reported) Magnesium Oxide 250 Mg Tablet, 250 MG PO DAILY, (Reported) Meclizine HCl 25 Mg Tablet, 25 MG PO Q8H PRN for DIZZINESS, (Reported) Metoprolol Succinate 50 Mg Tab.er.24h, 50 MG PO DAILY, (Reported) Nitroglycerin 0.4 Mg Tab.subl, 0.4 MG SL UD PRN for CHEST PAIN (ANGINA), (Re ported) Nystatin 15 Gm Cream..g., 1 APPLIC TOP QID PRN for YEAST, (Reported) APPLY UNDER THE BREAST/CODY AREA Ondansetron HCl 4 Mg Tablet, 4 MG PO TID PRN for NAUSEA/VOMITING-1ST LINE, (Re ported) Oxycodone HCl/Acetaminophen 1 Each Tablet, 1-2 EA PO Q4H PRN for PAIN-MODERATE (5-7), (Reported) Pantoprazole Sodium 40 Mg Tablet.dr, 40 MG PO DAILY, (Reported) Phenazopyridine HCl 100 Mg Tablet, 200 MG PO TID PRN for BLADDER PAIN, (Reported) Polyethylene Glycol 3350 17 Gm Powd.pack, 17 GM PO DAILY PRN for CONSTIPATION- 1ST LINE, (Reported) Potassium Chloride 10 Meq Capsule.er, 10 MEQ PO Q48H, (Reported) Pravastatin Sodium 10 Mg Tablet, 10 MG PO Q48H, (Reported) TAKES AT 2000 Sodium Chloride 30 Ml Comstock, 1 SPRAY NSEACH BID PRN for CONGESTION, (Reported) Sucralfate 1 Gm Tablet, 1 GM PO QID, (Reported) Trimethoprim 100 Mg Tablet, 100 MG PO HS, (Reported) Patient Home Medication List Home Medication List Reviewed: Yes Past Dhalzbb-Ssctik-Rofutr Hx Reviewed Nursing Assessment Reviewed/Agree w Nursing PMH: Yes Family Medical History Significant Family History: No Pertinent Family Hx Family Medial History: Arthritis G8 BROTHER G8 SISTER Cardiovascular disease 19 MOTHER Completed stroke G8 BROTHER G8 SISTER Congenital disease Dementia G8 SISTER Diabetes mellitus G8 BROTHER Hypertension 19 FATHER 19 MOTHER G8 BROTHER G8 SISTER Respiratory disorder G8 SISTER Review of Systems-General Constitutional: No chills, No diaphoresis; dizziness; No fever EENTM: No blurred vision, No double vision Respiratory: No cough; dyspnea on exertion, orthopnea, short of breath; No stridor, No wheezing Cardiovascular: chest pain, edema Gastrointestinal: abdominal pain; No constipation, No heartburn, No nausea, No vomiting Genitourinary: No dysuria; frequency; No hematuria Musculoskeletal: back pain Skin: No change in color, No change in hair/nails Psychiatric/Neurological: Denies Anxiety, Denies Depressed, Denies Headache All Other Systems Reviewed Negative Unless Noted: Yes (Negative excepted noted.) Physical Exam-General Problems Physical Exam General Appearance: WD/WN, no apparent distress HEENT: PERRL/EOMI, normal ENT inspection Neck: non-tender, supple, normal inspection Respiratory: chest non-tender, no respiratory distress, no accessory muscle use Cardiovascular: no JVD, irregularly irregular Gastrointestinal: normal bowel sounds, non tender, soft; No distended, No guarding, No rebound Rectal: blood streaked stool, other (clots present in rectal vault) Back: normal inspection, no CVA tenderness, no vertebral tenderness Extremities: normal range of motion, non-tender, pedal edema, swelling (1+ edema BLE) Neurologic/Psychiatric: no motor/sensory deficits, alert, normal mood/affect, oriented x 3 Skin: normal color, warm/dry Lymphatic: no adenopathy Assessment/Plan Assessment/Plan Assessment/Plan GI bleed - large clots passed per rectum, likely lower Anemia Acute exacerbation of diastolic CHF UTI Afib Acute on chronic kidney failure HTN COPD HLD T2DM GERD Clear liquid diet Hold ASA and Plavix Trend CBC's transfuse prbc as needed. Continue current medical management Cardiology following CXR showed mild interstitial congestion Possible colonoscopy if further bleeding/patient condition worsens Supervisory-Addendum Brief Verification & Attestation Participated in pt care: history, MDM, physical Personally performed: exam, history, MDM, supervision of care Care discussed with: Medical Student Procedures: n/a Results interpretation: Verified all documentation Verification and Attestation of Medical Student E/M Service A medical student performed and documented this service in my presence. I reviewed and verified all information documented by the medical student and made modifications to such information, when appropriate. I personally performed the physical exam and medical decision making. Maryse Aguillon, Jun 13, 2020,19:56 MARV STEINER MED STUDENT Jun 13, 2020 13:46 MARYSE AGUILLON DO Jun 13, 2020 19:53
[2020-06-13 16:18] LABS: HEMOGLOBIN 8.5 g/dL (11.5-16.0)
[2020-06-13] MEDS: FUROSEMIDE 40 MG (LASIX) TAB PO SCH (16:21)
[2020-06-13 20:14] LABS: HEMOGLOBIN 8.6 g/dL (11.5-16.0); MEAN PLATELET VOLUME 9.4 fL (9.0-12.2)
[2020-06-13] MEDS: amLODIPine 10 MG (NORVASC) TAB PO SCH (20:18)
[2020-06-13] MEDS: FENOFIBRATE 134 MG (LOFIBRA) CAPSULE PO SCH (20:19)
[2020-06-14] VITALS (25 sets, daily range): BP systolic 111–187; BP diastolic 38–104
[2020-06-14] MEDS: CATHETER FLUSH 10 ML SYR IV SCH ×4 (01:47→23:07)
[2020-06-14] MEDS: MEROPENEM 500 MG/SWFI 10 ML IV PUSH IV SCH ×4 (01:48→14:56)
[2020-06-14 04:34] LABS: BASOPHILS # (AUTO) 0.1 10^3/uL (0.0-0.1); BASOPHILS % (AUTO) 1 % (0-10); EOSINOPHILS # (AUTO) 0.4 10^3/uL (0.0-0.3); EOSINOPHILS % (AUTO) 5 % (0-10); HEMATOCRIT 28 % (35-52); HEMOGLOBIN 8.8 g/dL (11.5-16.0); LYMPHOCYTES # (AUTO) 0.7 10^3/uL (1.0-4.0); LYMPHOCYTES % (AUTO) 9 % (12-44); MEAN CORPUSCULAR HEMOGLOBIN 29 pg (25-34); MEAN CORPUSCULAR HGB CONC 31 g/dL (32-36); MEAN CORPUSCULAR VOLUME 93 fL (80-99); MEAN PLATELET VOLUME 9.6 fL (9.0-12.2); MONOCYTES # (AUTO) 0.7 10^3/uL (0.0-1.0); MONOCYTES % (AUTO) 9 % (0-12); NEUTROPHILS # (AUTO) 5.8 10^3/uL (1.8-7.8); NEUTROPHILS % (AUTO) 75 % (42-75); PLATELET COUNT 277 10^3/uL (130-400); WHITE BLOOD COUNT 7.8 10^3/uL (4.3-11.0)
[2020-06-14 04:50] LABS: CALCIUM 8.2 MG/DL (8.5-10.1); CREATININE SERUM 1.72 MG/DL (0.60-1.30); POTASSIUM 3.1 MMOL/L (3.6-5.0)
[2020-06-14] MEDS: POTASSIUM CL 10MEQ/50ML IVPB 50 ML IV SCH (04:59)
[2020-06-14] MEDS: KCL 20 MEQ TAB (K-DUR) PO SCH (04:59)
[2020-06-14] MEDS ORDERED: KCL 20 MEQ TAB (K-DUR) PO ONE ×2 (05:00→07:00)
[2020-06-14] MEDS: MAGNESIUM 1 GM/100 ML IVPB 100 ML IV SCH (05:18)
[2020-06-14] MEDS: glipiZIDE 5 MG (GLUCOTROL) TAB PO SCH ×2 (07:11→16:30)
[2020-06-14] MEDS: LEVOTHYROXINE 125 MCG (LEVOTHROID) TABLET PO SCH (07:11)
[2020-06-14] MEDS: SUCRALFATE 1 GM (CARAFATE) TAB PO SCH ×4 (07:11→20:10)
[2020-06-14] MEDS: FUROSEMIDE 40 MG (LASIX) TAB PO SCH ×2 (07:11→16:30)
--- NOTE | 2020-06-14 07:15 | Progress Note - Surgery ---
MARV STEINER MED STUDENT 06/14/20 0715: Subjective Date Seen by a Provider: Jun 14, 2020 Time Seen by a Provider: 06:55 Subjective/Events-last exam Patient reports doing ok this am. Reports slight lightheadedness, but states is normal for her. Denies chest pain, SOB, abdominal cramping/pain, fevers, or chills. States that she has not passed any more blood per rectum since yesterday am. Tolerating clear liquid diet well without nausea or vomiting. Patient denies pain. Review of Systems General: No Chills, No Night Sweats HEENT: No Head Aches, No Visual Changes Pulmonary: No Dyspnea, No Cough Cardiovascular: Lt Headedness; No: Chest Pain, Palpitations Gastrointestinal: No: Nausea, Vomiting, Abdominal Pain Genitourinary: No Dysuria, No Hematuria Musculoskeletal: No: neck pain, back pain Neurological: No: Weakness, Numbness Focused Exam Lactate Level 06/11/20 14:06: Lactic Acid Level 0.82 Objective Exam Vital Signs Date Time Temp Pulse Resp B/P (MAP) Pulse Ox O2 Delivery O2 Flow Rate FiO2 06/14/20 06:00 58 18 161/63 (95) Nasal Cannula 2.00 06/14/20 05:00 58 21 146/60 (88) Nasal Cannula 2.00 06/14/20 04:00 36.5 58 17 138/53 (81) 96 Nasal Cannula 2.00 06/14/20 03:22 56 140/53 (82) Nasal Cannula 2.00 06/14/20 01:00 73 06/14/20 00:00 36.4 106 20 154/77 (102) 95 Nasal Cannula 2.00 06/13/20 23:00 68 11 120/67 (84) Nasal Cannula 2.00 06/13/20 22:00 58 23 139/60 (86) Nasal Cannula 2.00 06/13/20 21:00 57 23 132/65 (87) Nasal Cannula 2.00 06/13/20 20:15 49 25 122/67 (85) Nasal Cannula 2.00 06/13/20 20:00 99 Nasal Cannula 2.00 06/13/20 19:37 37.2 85 15 133/65 (87) 99 06/13/20 19:20 98 Nasal Cannula 2.00 06/13/20 19:00 55 3/15/21 16:02 37.0 77 14 118/64 (82) 100 06/13/20 14:00 86 11 120/69 (86) Nasal Cannula 2.00 06/13/20 13:00 60 23 107/67 (80) Nasal Cannula 2.00 06/13/20 12:41 55 06/13/20 11:40 36.3 92 18 126/67 (86) 98 Nasal Cannula 2.00 06/13/20 11:00 54 19 105/57 (73) Nasal Cannula 2.00 06/13/20 10:00 83 29 118/58 (78) Nasal Cannula 2.00 06/13/20 09:30 105 17 130/65 (86) Nasal Cannula 2.00 06/13/20 09:23 59 06/13/20 08:20 106 122/71 (88) Nasal Cannula 2.00 06/13/20 07:50 86 163/76 (105) 98 06/13/20 07:45 114 186/100 (128) 98 Nasal Cannula 06/13/20 07:40 107 187/80 (115) 97 Nasal Cannula 2.00 06/13/20 07:15 36.0 86 18 90/53 (65) 99 Nasal Cannula 2.00 I & O 06/14/20 07:00 Intake Total 150 ml Output Total 470 ml Balance -320 ml Capillary Refill : Less Than 3 Seconds General Appearance: No Apparent Distress, Chronically ill HEENT: PERRL/EOMI, Pharynx Normal, Pale Conjunctivae (L), Pale Conjunctivae (R) Neck: Normal Inspection, Non Tender, Supple Respiratory: Chest Non Tender, Lungs Clear, Normal Breath Sounds, No Accessory Muscle Use, No Respiratory Distress Cardiovascular: Regular Rate, Rhythm, Normal Peripheral Pulses, Bradycardia, Systolic Murmur Peripheral Pulses: 2+ Dorsalis Pedis (R), 2+ Left Dors-Pedis (L), 2+ Radial Pulses (R), 2+ Radial Pulses (L) Gastrointestinal: normal bowel sounds, non tender, soft; No distended, No guarding, No rebound Extremity: Normal Inspection, Non Tender, No Calf Tenderness, Pedal Edema (moderate non-pitting BLE) Neurologic/Psychiatric: Alert, Oriented x3, Normal Mood/Affect Skin: Warm/Dry, Pallor Lymphatic: No Adenopathy Results Lab Laboratory Tests 06/13/20 07:56: White Blood Count 8.8, Red Blood Count 3.39L, Hemoglobin 9.8L, Hematocrit 32L, Mean Corpuscular Volume 95, Mean Corpuscular Hemoglobin 29, Mean Corpuscular Hemoglobin Concent 31L, Red Cell Distribution Width 14.8H, Platelet Count 308, Mean Platelet Volume 9.7, Immature Granulocyte % (Auto) 2, Neutrophils (%) (Auto) 70, Lymphocytes (%) (Auto) 14, Monocytes (%) (Auto) 8, Eosinophils (%) (Auto) 5, Basophils (%) (Auto) 1, Neutrophils # (Auto) 6.2, Lymphocytes # (Auto) 1.2, Monocytes # (Auto) 0.7, Eosinophils # (Auto) 0.4H, Basophils # (Auto) 0.1, Immature Granulocyte # (Auto) 0.2H 06/13/20 12:05: Hemoglobin 8.7L, Hematocrit 28L 06/13/20 16:07: Hemoglobin 8.5L, Hematocrit 27L 06/13/20 20:02: White Blood Count 8.0, Red Blood Count 2.95L, Hemoglobin 8.6L, Hematocrit 28L, Mean Corpuscular Volume 94, Mean Corpuscular Hemoglobin 29, Mean Corpuscular Hemoglobin Concent 31L, Red Cell Distribution Width 14.8H, Platelet Count 278, Mean Platelet Volume 9.4 06/14/20 04:20: White Blood Count 7.8, Red Blood Count 3.01L, Hemoglobin 8.8L, Hematocrit 28L, Mean Corpuscular Volume 93, Mean Corpuscular Hemoglobin 29, Mean Corpuscular Hemoglobin Concent 31L, Red Cell Distribution Width 14.6H, Platelet Count 277, Mean Platelet Volume 9.6, Immature Granulocyte % (Auto) 1, Neutrophils (%) (Auto) 75, Lymphocytes (%) (Auto) 9L, Monocytes (%) (Auto) 9, Eosinophils (%) (Auto) 5, Basophils (%) (Auto) 1, Neutrophils # (Auto) 5.8, Lymphocytes # (Auto) 0.7L, Monocytes # (Auto) 0.7, Eosinophils # (Auto) 0.4H, Basophils # (Auto) 0.1, Immature Granulocyte # (Auto) 0.1, Sodium Level 138, Potassium Level 3.1L, Chloride Level 98, Carbon Dioxide Level 29, Anion Gap 11, Blood Urea Nitrogen 38H, Creatinine 1.72H, Estimat Glomerular Filtration Rate 28, BUN/Creatinine Ratio 22, Glucose Level 83, Calcium Level 8.2L, Magnesium Level 1.8 Microbiology 06/11/20 Blood Culture - Preliminary, Resulted No growth 06/11/20 Urine Culture - Final, Complete Escherichia coli Assessment/Plan Assessment/Plan Assessment/Plan GI bleed - large clots passed per rectum, likely lower Anemia- stable Hypokalemia- K 3.1 this am Acute exacerbation of diastolic CHF UTI Afib Acute on chronic kidney failure HTN COPD HLD T2DM GERD Clear liquid diet, NPO after midnight Golytely prep today Hold ASA and Plavix Trend CBC's transfuse prbc as needed. HGB stable at 8.8 this am. Replete potassium, continue to monitor Continue current medical management Cardiology following Colonoscopy planned for tomorrow Clinical Quality Measures DVT/VTE Risk/Contraindication: Contraindications-Pharm: Other *list below* Other: gi bleed MARYSE AGUILLON DO 06/14/202056: Subjective Subjective/Events-last exam Patient feeling better today. She has not passed any more blood per rectum. She is tolerating clear liquids. She is not having nausea or vomiting. Patient for pacemaker today. Patient also needing colonoscopy for further evaluation. She like to have this done now. Patient has been on Plavix on hold which I discussed with Dr. Bhakta and cardiology not wanting to hold off on any anticoagulation so most optimal time to do colonoscopy be tomorrow. Objective Exam General Appearance: No Apparent Distress, Chronically ill HEENT: PERRL/EOMI, Pale Conjunctivae (L), Pale Conjunctivae (R) Neck: Normal Inspection, Non Tender, Supple Respiratory: Chest Non Tender, No Accessory Muscle Use, No Respiratory Distress Cardiovascular: Regular Rate, Rhythm, No JVD, Bradycardia Gastrointestinal: normal bowel sounds, non tender, soft Extremity: Normal Inspection, Non Tender, No Calf Tenderness Neurologic/Psychiatric: Alert, Oriented x3, Normal Mood/Affect Skin: Warm/Dry, Pallor Lymphatic: No Adenopathy Assessment/Plan Assessment/Plan Assessment/Plan GI bleed - large clots passed per rectum, likely lower Anemia- stable Hypokalemia- K 3.1 this am Acute exacerbation of diastolic CHF UTI Afib Acute on chronic kidney failure HTN COPD HLD T2DM GERD Clear liquid diet, NPO after midnight Golytely prep today Hold ASA and Plavix Trend CBC's transfuse prbc as needed. HGB stable at 8.8 this am. Replete potassium, continue to monitor Continue current medical management Cardiology following Patient understands risk and benefits of procedure of colonoscopy. Patient also understands higher risk due to shortened period of holding antiplatelets. Plan for colonoscopy tomorrow. Supervisory-Addendum Brief Verification & Attestation Participated in pt care: history, MDM, physical Personally performed: exam, history, MDM, supervision of care Care discussed with: Medical Student Procedures: n/a Results interpretation: Verified all documentation Verification and Attestation of Medical Student E/M Service A medical student performed and documented this service in my presence. I reviewed and verified all information documented by the medical student and made modifications to such information, when appropriate. I personally performed the physical exam and medical decision making. Maryse Aguillon, Jun 14, 2020,20:56 MARV STEINER MED STUDENT Jun 14, 2020 07:15 MARYSE AGUILLON DO Jun 14, 2020 20:57
--- NOTE | 2020-06-14 08:04 | Progress Note ---
Subjective Subjective Date Seen by Provider: Jun 14, 2020 Time Seen by Provider: 07:25 Pt seen and examined. She was awake, laying in bed, NAD. She denies current SOB, chest pain, N/V. No further episodes of blood per rectum since yesterday. Says that she experiences 10-20 episodes of dizziness daily starting about 3wks ago with associated chest pain and trouble breathing. Episode of heart pausing overnight for about 4 seconds. HR ranges from 40's to 100's sporadically. Pt is requesting something to help her sleep, RLS, and inquiring about studies to evaluate her blood per rectum. Review of Systems General: No Chills, No Night Sweats HEENT: No Head Aches, No Visual Changes Pulmonary: Dyspnea (intermittently); No Cough Cardiovascular: Chest Pain (intermittently), Edema (moderate nonpitting BLE), Lt Headedness; No: Palpitations Gastrointestinal: No: Nausea, Vomiting, Abdominal Pain Genitourinary: No Dysuria; Frequency; No Hematuria Musculoskeletal: No: neck pain, back pain Neurological: No: Weakness, Numbness All Other Systems Reviewed All Other Systems Reviewed: Yes (Negative excepted noted.) Objective Exam Vital Signs Vital Signs - First Documented 06/11/20 10:32 Temp 36.7 Pulse 71 Resp 16 B/P (MAP) 174/65 (101) Pulse Ox 94 O2 Delivery Nasal Cannula O2 Flow Rate 3.00 Capillary Refill : Less Than 3 Seconds General Appearance: No Apparent Distress, Chronically ill, Obese Eyes: Bilateral Eye Normal Inspection, Bilateral Eye PERRL, Bilateral Eye EOMI HEENT: PERRL/EOMI, Pharynx Normal, Pale Conjunctivae (L), Pale Conjunctivae (R) Neck: Normal Inspection, Non Tender, Supple Respiratory: Chest Non Tender, Lungs Clear, Normal Breath Sounds, No Accessory Muscle Use, No Respiratory Distress Cardiovascular: Normal Peripheral Pulses, Systolic Murmur, Irregularly Irre gular, Other (HR sporadic from 40's to 100's) Gastrointestinal: Normal Bowel Sounds, Non Tender, Soft Rectal: Deferred Back: Normal Inspection, No CVA Tenderness Extremity: Normal Inspection, Non Tender, No Calf Tenderness, Pedal Edema (moderate non-pitting BLE) Neurologic/Psychiatric: Alert, Oriented x3, Normal Mood/Affect Skin: Warm/Dry, Pallor Lymphatic: No Adenopathy Results Lab Laboratory Tests 06/13/20 12:05: Hemoglobin 8.7L, Hematocrit 28L 06/13/20 16:07: Hemoglobin 8.5L, Hematocrit 27L 06/13/20 20:02: Hemoglobin 8.6L, Hematocrit 28L, White Blood Count 8.0, Red Blood Count 2.95L, Mean Corpuscular Volume 94, Mean Corpuscular Hemoglobin 29, Mean Corpuscular Hemoglobin Concent 31L, Red Cell Distribution Width 14.8H, Platelet Count 278, Mean Platelet Volume 9.4 06/14/20 04:20: Hemoglobin 8.8L, Hematocrit 28L, White Blood Count 7.8, Red Blood Count 3.01L, Mean Corpuscular Volume 93, Mean Corpuscular Hemoglobin 29, Mean Corpuscular Hemoglobin Concent 31L, Red Cell Distribution Width 14.6H, Platelet Count 277, Mean Platelet Volume 9.6, Immature Granulocyte % (Auto) 1, Neutrophils (%) (Auto) 75, Lymphocytes (%) (Auto) 9L, Monocytes (%) (Auto) 9, Eosinophils (%) (Auto) 5, Basophils (%) (Auto) 1, Neutrophils # (Auto) 5.8, Lymphocytes # (Auto) 0.7L, Monocytes # (Auto) 0.7, Eosinophils # (Auto) 0.4H, Basophils # (Auto) 0.1, Immature Granulocyte # (Auto) 0.1, Sodium Level 138, Potassium Level 3.1L, Ch loride Level 98, Carbon Dioxide Level 29, Anion Gap 11, Blood Urea Nitrogen 38H, Creatinine 1.72H, Estimat Glomerular Filtration Rate 28, BUN/Creatinine Ratio 22, Glucose Level 83, Calcium Level 8.2L, Magnesium Level 1.8 Microbiology 06/11/20 Blood Culture - Preliminary, Resulted No growth 06/11/20 Urine Culture - Final, Complete Escherichia coli Assessment/Plan Assessment/Plan Assessment and Plan GI bleed - large clots passed per rectum yesterday Acute exacerbation of diastolic CHF Syncopal episodes Paroxysmal Afib UTI Acute on chronic kidney failure - Cr 1.72 today, 1.92 yesterday HTN - Difficult to control, home meds and continue to monitor Anemia - Hgb 8.8 Hypokalemia - K 3.1 COPD HLD T2DM Cardiology following, continue diuresis Pacemaker placement today General Surgery consulted for GI bleed; Aspirin/Plavix on hold, colonoscopy planned tomorrow Receiving Meropenem IV. Urine culture positive for E Coli Transferred to step-down; awaiting ICU placement K supplementation as needed Continue to monitor VS/labs Clinical Quality Measures DVT/VTE Risk/Contraindication: Contraindications-Pharm: Other *list below* Other: gi bleed Supervisory-Addendum Brief Verification & Attestation Participated in pt care: history, MDM, physical Personally performed: exam, history, MDM, supervision of care Care discussed with: Medical Student Procedures: n/a Results interpretation: Verified all documentation I HAVE PERSONALLY INTERVIEWED AND EXAMINED THE PATIENT. I AGREE WITH MEDICAL STUDENT DOCUMENTATION IN THE CHART. SEE MY ASSESSMENT AND PLAN FOLLOWS: NEW ONSET ATRIAL FIBRILLATION 3 SECOND PAUSES ON MONITOR STRIP OVERNIGHT ACUTE GASTROINTESTINAL BLEED ACUTE ON CHRONIC DIASTOLIC HEART FAILURE CHRONIC RECURRENT URINARY TRACT INFECTION HYPERTENSION ANEMIA ACUTE ON CHRONIC RENAL FAILURE DIABETES MELLITUS NEW ONSET ATRIAL FIBRILLATION WITH 3 SECOND PAUSES ON MONITOR STRIP OVERNIGHT- HEART RATE FROM 30'S - 100'S - DISCUSSED WITH DR. DIANA - PT HAS HAD QUITE A BIT OF PAUSES OVERNIGHT WELL AND SHE WILL BE TAKEN FOR A PACEMAKER TODAY BY DR. PITTMAN PER DR. DIANA'S REPORT. ACUTE GASTROINTESTINAL BLEED - CONSULT PLACED TO DR. UGARTE, SERIAL H AND H'S ORDERED, MONITOR SYMPTOMS CLOSELY, ANTICIPATE COLONOSCOPE PRIOR TO DISCHARGE - STOPPED ASA AND PLAVIX SATURDAY - WILL NEED TO HAVE HER ON XARELTO PRIOR TO DISCHARGE, WILL THEREFORE HAVE SCOPE SATURDAY - PT IS HIGHER RISK FOR COMPLICATION AND MORE ROBUST BLEEDING DUE TO THE FACT THAT SHE WILL NOT BE OFF OF HER PLAVIX AND ASPIRIN FOR THE USUAL 5 DAYS PRIOR TO PLANNED SCOPES. SINCE THIS IS A MORE EMERGENT EVENT, SHE WILL ONLY BE OFF OF HER PLAVIX AND ASPIRIN X 3 DAYS PRIOR TO THE SCOPE. THE RISK OF THE SCOPE IS NECESSARY FOR JOHN DUE TO HER CARDIAC RISK OF CLOTS WITH EMBOLIC STROKE DUE TO ATRIAL FIBRILLATION. ACUTE ON CHRONIC DIASTOLIC HEART FAILURE - PT ON LASIX, MONITOR SYMPTOMS CHRONIC RECURRENT URINARY TRACT INFECTION - PT ON MEROPENEM, CONTINUE CURRENT MANAGEMENT. HYPERTENSION - PT ON HOME REGIMEN ANEMIA - STABLE AT THIS TIME, SHE HAS CHRONIC ANEMIA, HOWEVER WITH HER ACUTE GI BLEEDING - SHE WILL NEED SCOPE TO EVAL FOR LOWER GI CAUSES. ACUTE ON CHRONIC RENAL FAILURE - MONITOR LABS, CONTINUE WITH LOW DOSE FLUIDS DIABETES MELLITUS - STABLE MARIELY GRIJALVA MED STUDENT Jun 14, 2020 08:04 HIRAL WOLF MD Jun 14, 2020 09:18
[2020-06-14] MEDS ORDERED: BACITRACIN INJECTION 50,000 UNIT, SODIUM CHLORIDE 0.9% IRRIGATIO 500 ML IR ONE ×2 (08:45)
[2020-06-14] MEDS ORDERED: VANCOMYCIN INJECTION 1,000 MG in NS (IVPB) 250 ML IV ONE (08:45)
[2020-06-14] MEDS ORDERED: GOLYTELY POWDER 4000 ML BTL PO ONE (09:00)
--- NOTE | 2020-06-14 09:14 | Cardiology Progress Note ---
Subjective Date Seen by Provider: Jun 14, 2020 Time Seen by Provider: 09:09 Subjective/Events-last exam patient is laying down in bed, had few episodes of dizziness, noted to have multiple episode of sinus pause on telemetry followed by atrial flutter Review of Systems General: No Chills, No Night Sweats; Fatigue; No Malaise, No Appetite, No Other HEENT: No Head Aches, No Visual Changes, No Eye Pain, No Ear Pain, No Dysphasia, No Sinus Congestion, No Post Nasal Drip, No Sore Throat, No Other Pulmonary: No Dyspnea, No Cough, No Pleuritic Chest Pain, No Other Cardiovascular: Palpitations, Lt Headedness; No: Chest Pain, Orthopnea, Paroxysmal Noc. Dyspnea, Edema, Other Focused Exam Lactate Level 06/11/20 14:06: Lactic Acid Level 0.82 Objective-Cardiology Exam Last Set of Vital Signs Vital Signs 06/14/20 06/14/20 06/14/20 07:31 07:53 07:55 Temp 36.8 Pulse 107 Resp 20 B/P (MAP) 132/51 (78) Pulse Ox 97 O2 Delivery Nasal Cannula O2 Flow Rate 2.00 Capillary Refill : Greater Than 3 Seconds I&O Intake and Output 06/13/20 23:59 Intake Total 550 ml Output Total 1020 ml Balance -470 ml Intake Oral 550 ml Output Urine Total 1020 ml # Voids 1 # Bowel Movements 1 General: Alert, Oriented X3, Cooperative HEENT: Atraumatic, PERRLA Neck: Supple, No JVD, No Thyromegaly Lungs: Clear to Auscultation, Normal Air Movement Heart: Normal S1, Normal S2, No Murmurs, Other (irregular rhythm) Abdomen: Normal Bowel Sounds, Soft, No Tenderness, No Hepatosplenomegaly, No Masses Extremities: No Clubbing, No Cyanosis, No Edema, Normal Pulses, No Tenderness/Swelling Skin: No Rashes, No Breakdown, No Significant Lesion Neuro: Normal Speech, Strength at 5/5 X4 Ext, Normal Tone, Sensation Intact Psych/Mental Status: Mental Status NL, Mood NL Results Lab Laboratory Tests 06/13/20 12:05 06/13/20 16:07 06/13/20 20:02 06/14/20 04:20 A/P-Cardiology Admission Diagnosis Congestive heart failure, acute on chronic left ventricular diastolic dysfunction Moderate aortic stenosis Hypertension Chest pain nonspecific etiology Assessment/Plan Shortness of breath, probably secondary to pulmonary edema, reporting improvement, continue on diuretics and monitor Acute lower GI bleed, bright red blood per rectum with syncopal episode, receiving IV fluid, transfer to cardiac stepdown, arrange for blood transfusion as needed, consult general surgery. Sinus node dysfunction with multiple episodes of bradycardia, then going in and out of atrial fibrillation/flutter, patient has history of episode of dizziness and lightheadedness and had a similar episode today while having the sinus pause. Discussed the management plan recommended dual-chamber pacemaker, Dr. Swift will proceed with the implantation Paroxysmal atrial fibrillation/ flutter, need to start on Xarelto once GI bleed is excluded Chest pain nonspecific etiology, probably musculoskeletal, had moderate diffuse coronary artery disease per cardiac catheterization in August 2019. Aspirin and Plavix are on hold starting June 13, 2020 secondary to GI bleed Congestive heart failure, acute on chronic left ventricular diastolic dysfunction, normal systolic function, nonischemic cardiomyopathy, continue on diuretics, and tinea to monitor Aortic valve stenosis, moderate per echocardiogram, valve area 1.2-1.6 cm. Continue to monitor Echocardiogram done in March 2020 showing normal left ventricular size, EF 55-65 percent, grade 2 diastolic dysfunction, left atrial dilatation, mitral valve sclerosis, moderate aortic stenosis, pulmonary hypertension with PA pressure 45-50 mmHg. Continue to monitor Acute on chronic renal insufficiency, chronic kidney disease stage III with diabetic nephropathy, started back on diuretics, monitor tolerance and response Hypertension, difficult to control. Intolerant to multiple medications, history of orthostatic dizziness and hypotension. Monitor closely. Coronary artery disease, had a cardiac catheterization done in August [address] Swift showing diffuse moderate coronary artery disease involving all her coronary system with 50 percent stenosis nonobstructive disease. Anemia, monitor H&H Diabetes mellitus, followed and managed by primary care physician History of recurrent UTI with multidrug resistance, managed by primary care team Degenerative joint disease History of intolerance to statin with intolerant to angiotensin receptor neeru Peripheral arterial disease bilateral peripheral angiography done with Dr. Monahan showing significant obstructive disease Mild bilateral carotid stenosis, continue to monitor as outpatient. Chronic pedal edema with history of chronic venous insufficiency History of urinary incontinence Clinical Quality Measures DVT/VTE Risk/Contraindication: Contraindications-Pharm: Other *list below* Other: gi bleed KATHERYN DIANA MD Jun 14, 2020 09:14
[2020-06-14] MEDS ORDERED: fentaNYL INJ 100 MCG/2 ML AMP ONE ×2 (09:29→11:40)
[2020-06-14] MEDS ORDERED: MIDAZOLAM 5 MG/5 ML (VERSED) VIAL ONE (09:29)
[2020-06-14] MEDS: ISOSORBIDE MONONITRATE 60 MG (IMDUR) TAB PO SCH (10:35)
[2020-06-14] MEDS: doxAzosin 2 MG (CARDURA) TAB PO SCH ×2 (10:35→20:06)
[2020-06-14] MEDS: MAGNESIUM OXIDE (MAG-OX)400 MG TAB PO SCH (10:35)
[2020-06-14] MEDS: ARTIFICAL TEARS 0.4 ML UNIT DOSE (REFRESH PLUS) OU SCH ×3 (10:35→20:06)
[2020-06-14] MEDS: LACTOBACILLUS ACIDOPHILUS (PROBIOTIC) CAPSULE PO SCH (10:35)
[2020-06-14] MEDS: PANTOPRAZOLE 40 MG (PROTONIX) TAB PO SCH (10:36)
[2020-06-14] MEDS: meTOproloL SUCCINATE 50 MG (TOPROL XL) TAB PO SCH (10:36)
[2020-06-14] MEDS: VITAMIN D3 125 MCG (5,000 UNITS) CAPSULE PO SCH (10:36)
[2020-06-14] MEDS: eZETimibe 10 MG (ZETIA) TABLET PO SCH (10:36)
[2020-06-14] MEDS ORDERED: LIDOCAINE 1% INJ 20 ML 20 ML VIAL ONE (10:57)
[2020-06-14] MEDS ORDERED: HEParin (CATH LAB) 1,000 ML IV ONE (10:57)
[2020-06-14] MEDS ORDERED: NS IV 1000 ML 1,000 ML ONE (10:57)
[2020-06-14] MEDS: NS IV 1000 ML 1,000 ML IV SCH ×2 (12:17→23:07)
[2020-06-14] MEDS ORDERED: PATIENT MAY USE OWN MEDS, ALL PO SCH (13:30)
[2020-06-14] MEDS ORDERED: NS IV 1000 ML 1,000 ML IV SCH (13:30)
--- NOTE | 2020-06-14 13:53 | OPERATIVE REPORT ---
DATE OF SERVICE: 06/14/2020 INDICATIONS: The patient is an 84-year-old lady, who has sinus node dysfunction and has been experiencing paroxysmal atrial fibrillation and long asystolic pauses. She has symptoms of dizziness and near syncope. Dual chamber pacemaker implantation was carried out today after having obtained an informed consent. DESCRIPTION OF PROCEDURE: [facility] The left prepectoral area was prepared and draped in the usual sterile fashion. Lidocaine 1% was used for local anesthesia. Modified Seldinger technique was used to advance two Guidewires into the subclavian vein and the tips of the wires were placed in the right atrium. Sharp and blunt dissection was used to make a pacemaker pocket. Good hemostasis was assured. The pocket was packed with gauze soaked in an antibiotic solution. The guidewires were removed to advance sheaths and the guidewires were removed. The sheaths were used to advance leads and the sheaths were removed. All lead manipulation was carried out under fluoroscopy. The leads are active fixation leads. The right ventricular lead was placed at the high right ventricular septum and actively fixed. The right atrial lead was placed in the right atrial appendage and actively fixed. Good capture and sensing thresholds were obtained. Right atrial capture threshold is 1 volt at 0.4 milliseconds. The pacing impedance in the right atrium is 456 ohms. P waves are measured at 2.1 millivolts. Right ventricular capture threshold is 0.5 volts at 0.2 milliseconds. The pacing impedance is 722 ohms. R waves are measured at 10.1 millivolts. The pacemaker is set in the DDDR mode. The ventricular lead is Medtronic model 4076-52. Its serial number is [id number]. The right ventricular lead is model 5076-58 and serial number is [id number]. The pacemaker is Medtronic model [id number] with serial #[id number]. Job ID: [id number] DocumentID: [id number] Dictated Date: 06/14/2020 12:59:35 General Handling Supervisor Date: 06/14/2020 13:52:37 Dictated By: JENNIFER PITTMAN MD, MA, FACP, FACC,
--- NOTE | 2020-06-14 14:13 | Cardiac Procedure Note-CS/ASA ---
Pre-Procedure Note Pre-Op Procedure Note H&P Reviewed The H&P was reviewed, patient examined and no changes noted. Date H&P Reviewed: Jun 14, 2020 Time H&P Reviewed: 11:00 Conscious Sedation Pre-Proced Time 11:00 ASA Score 3 For ASA 3 and 4: Consider anesthesia and medical clearance. Also, for patients with a history of failed moderate sedation consider anesthesia. Airway Lungs Heart ASA score ASA 1: a normal healthy patient ASA 2: a patient with a mild systemic disease (mid diabetes, controlled hypertension, obesity ASA 3: a patient with a severe systemic disease that limits activity (angina, COPD, prior Myocardial infarction) ASA 4: a patient with an incapacitating disease that is a constant threat to life (CHF, renal failure) ASA 5: a moribund patient not expected to survive 24 hrs. (ruptured aneurysm) ASA 6: a declared brain- patient whose organs are being harvested. For emergent operations, add the letter E after the classification Mallampati Classification Grade 2 Sedation Plan Analgesia, Amnesia, Plan communicated to team members, Discussed options with patient/fam, Discussed risks with patient/fam The patient is an appropriate candidate to undergo the planned procedure, sedation, and anesthesia. The patient immediately re-assessed prior to indication. JENNIFER PITTMAN MD FACP FAC CCDS Jun 14, 2020 14:13
[2020-06-14] MEDS: inSUlin ASPART (NovoLOG) 1 UNIT/0.01 ML (CHARGE PER UNIT) SQ SCH ×2 (16:00→21:17)
--- NOTE | 2020-06-14 16:56 | Diagnostic Imaging Report ---
INDICATION: Pacemaker placement COMPARISON: June 11, 2020 TECHNIQUE: Two radiographs of the chest dated 06/14/2020 FINDINGS: Interval placement of a 2-lead pacer device with the battery pack overlying the left chest. No pneumothorax. Mitral valve annular calcifications are again identified. The cardiac silhouette is mildly enlarged, though stable. Minimal central pulmonary vascular congestion, improved since the prior examination. Improved diffuse prominence of the pulmonary interstitium. No new focal pulmonary opacity. No significant pleural effusion. No pneumothorax. Postsurgical changes within the right shoulder. No acute osseous abnormality. IMPRESSION: 1. Interval placement of a pacer device without pneumothorax. 2. Improving congestive heart failure/volume overload with improving interstitial edema. Dictated by: Dictated on workstation # [id number]
[2020-06-14] MEDS: ACETAMINOPHEN 325 MG TABLET PO PRN (20:05)
[2020-06-14] MEDS: amLODIPine 10 MG (NORVASC) TAB PO SCH (20:06)
[2020-06-14] MEDS: FENOFIBRATE 134 MG (LOFIBRA) CAPSULE PO SCH (20:06)
[2020-06-14] MEDS ORDERED: NON-FORMULARY MEDICATION 1 EA EA (Trimethoprim 100 MG) PO SCH (21:00)
[2020-06-15] VITALS (25 sets, daily range): BP systolic 98–151; BP diastolic 35–95
[2020-06-15] MEDS: ONDANSETRON 4 MG/2 ML (SDV) Z0FRAN IV PRN (01:33)
[2020-06-15] MEDS: MEROPENEM 500 MG/SWFI 10 ML IV PUSH IV SCH ×4 (03:13→15:18)
[2020-06-15 03:31] LABS: MEAN PLATELET VOLUME 9.7 fL (9.0-12.2); WHITE BLOOD COUNT 7.4 10^3/uL (4.3-11.0)
[2020-06-15 03:51] LABS: ALBUMIN 2.9 GM/DL (3.2-4.5); BILIRUBIN,TOTAL 0.3 MG/DL (0.1-1.0); CALCIUM 7.7 MG/DL (8.5-10.1); CREATININE SERUM 1.34 MG/DL (0.60-1.30); MAGNESIUM 1.7 MG/DL (1.6-2.4); POTASSIUM 3.4 MMOL/L (3.6-5.0); TOTAL PROTEIN 5.6 GM/DL (6.4-8.2)
[2020-06-15] MEDS: MAGNESIUM 1 GM/100 ML IVPB 100 ML IV SCH ×3 (04:04→05:05)
[2020-06-15] MEDS: POTASSIUM CL 10MEQ/50ML IVPB 50 ML IV SCH ×3 (04:04→08:04)
[2020-06-15] MEDS: KCL 20 MEQ TAB (K-DUR) PO SCH (04:04)
[2020-06-15] MEDS: inSUlin ASPART (NovoLOG) 1 UNIT/0.01 ML (CHARGE PER UNIT) SQ SCH ×4 (04:05→20:27)
[2020-06-15] MEDS: SUCRALFATE 1 GM (CARAFATE) TAB PO SCH ×4 (05:05→20:29)
[2020-06-15] MEDS: glipiZIDE 5 MG (GLUCOTROL) TAB PO SCH ×2 (06:04→16:52)
[2020-06-15] MEDS: CATHETER FLUSH 10 ML SYR IV SCH ×3 (06:04→20:29)
--- NOTE | 2020-06-15 06:07 | Diagnostic Imaging Report ---
INDICATION: Cardiac device placement. TIME OF EXAM: 3:02 AM Comparison is made with prior chest from one day earlier. FINDINGS: Heart is enlarged, but stable. Cardiac pacemaker remains in place. There is central congestion but no overt failure. No effusion or pneumothorax is seen. IMPRESSION: Cardiomegaly and central congestion. Dictated by: Dictated on workstation # [id number]
[2020-06-15] MEDS: CALCIUM CARBONATE 500 MG (TUMS) TAB.CHEW PO PRN (06:12)
[2020-06-15] MEDS ORDERED: meTOprolol 5 MG/5 ML (LOPRESSOR) VIAL IV ONE (06:30)
--- NOTE | 2020-06-15 07:07 | Progress Note - Surgery ---
MARV STEINER MED STUDENT 06/15/20 0706: Subjective Date Seen by a Provider: Jun 15, 2020 Time Seen by a Provider: 06:55 Subjective/Events-last exam Patient awake and alert upon entering room. RN's at bedside helping assist patient to commode to finish golytely prep. She has been nauseated over night and dry heaving. No episodes of emesis per RN. She is passing liquid stools which are not completely clear yet. She currently has around 12 ounces of golytely prep to finish. She was up all night working on the prep. RN reports that patient had chest pain for about an hour and a half this am, that was substernal and did not radiate anywhere. Patient was tachycardic to the 120's and the nurse administered some lopressor IVP. Currently patient denies chest pain, SOB, headaches, and dizziness. Reports some mild nausea. Vital signs stable per monitor. Review of Systems General: No Chills, No Night Sweats HEENT: No Head Aches, No Visual Changes Pulmonary: No Dyspnea, No Cough, No Pleuritic Chest Pain Cardiovascular: Chest Pain (substernal and non radiating); No: Palpitations, Orthopnea, Edema Gastrointestinal: Nausea, Other (finishing golytely prep this am); No: Vomiting Genitourinary: No Dysuria, No Frequency Musculoskeletal: No: neck pain, back pain Neurological: No: Weakness, Numbness Objective Exam Vital Signs Date Time Temp Pulse Resp B/P (MAP) Pulse Ox O2 Delivery O2 Flow Rate FiO2 06/15/20 06:15 98 25 146/95 (112) 94 Nasal Cannula 2.00 06/15/20 05:00 80 20 100/41 (60) 97 Nasal Cannula 2.00 06/15/20 04:00 77 18 109/61 (77) 96 Nasal Cannula 2.00 06/15/20 03:13 36.4 06/15/20 03:00 66 24 127/35 (65) 96 Nasal Cannula 2.00 06/15/20 02:41 63 17 104/55 (71) 95 Nasal Cannula 2.00 06/15/20 01:02 61 06/15/20 01:00 72 21 141/81 (101) 97 Nasal Cannula 2.00 06/15/20 00:00 36.5 06/15/20 00:00 80 18 127/48 (74) 96 Nasal Cannula 2.00 06/14/20 23:00 71 19 111/39 (63) 97 Nasal Cannula 2.00 06/14/20 22:00 80 19 134/46 (75) 96 Nasal Cannula 2.00 06/14/20 21:00 61 20 133/52 (79) 96 Nasal Cannula 2.00 06/14/20 20:00 36.8 06/14/20 20:00 Nasal Cannula 2.00 06/14/20 20:00 63 22 143/38 (73) 97 Nasal Cannula 2.00 06/14/20 19:06 60 06/14/20 19:00 98 8 127/62 (83) 98 Nasal Cannula 2.00 06/14/20 18:00 68 15 129/48 (75) 98 Nasal Cannula 2.00 06/14/20 17:00 64 18 146/51 (82) 97 Nasal Cannula 2.00 06/14/20 16:00 65 21 151/43 (79) 87 Nasal Cannula 2.00 06/14/20 15:35 36.5 06/14/20 15:30 65 17 111/51 (71) 92 Nasal Cannula 2.00 06/14/20 15:00 61 19 124/58 (80) 97 Nasal Cannula 2.00 06/14/20 14:30 80 19 133/53 (79) 98 Nasal Cannula 2.00 06/14/20 14:15 96 12 144/62 (89) 95 Nasal Cannula 2.00 06/14/20 14:00 84 10 128/66 (86) 97 Nasal Cannula 2.00 06/14/20 13:45 80 9 152/74 (100) 100 Nasal Cannula 2.00 06/14/20 13:30 136/58 (84) Nasal Cannula 2.00 06/14/20 10:00 54 25 178/66 (103) Nasal Cannula 2.00 06/14/20 09:00 84 27 160/70 (100) Nasal Cannula 2.00 06/14/20 08:00 60 23 111/104 (106) Nasal Cannula 2.00 06/14/20 07:55 36.8 06/14/20 07:53 36.7 107 20 97 06/14/20 07:45 100 Nasal Cannula 2.00 3/16/21 07:31 69 18 132/51 (78) 100 Nasal Cannula 2.00 I & O 06/15/20 07:00 Intake Total 3400 ml Output Total 1950 ml Balance 1450 ml Capillary Refill : Greater Than 3 Seconds General Appearance: No Apparent Distress, Chronically ill HEENT: PERRL/EOMI, Pale Conjunctivae (L), Pale Conjunctivae (R) Neck: Normal Inspection, Non Tender, Supple Respiratory: Chest Non Tender, No Accessory Muscle Use, No Respiratory Distress, Rhonci (bilaterally anteriorly, clear somehwat with cough) Cardiovascular: Regular Rate, Rhythm, Normal Peripheral Pulses Peripheral Pulses: 2+ Dorsalis Pedis (R), 2+ Left Dors-Pedis (L), 2+ Radial Pulses (R), 2+ Radial Pulses (L) Gastrointestinal: normal bowel sounds, non tender, soft Extremity: Normal Inspection, No Calf Tenderness, No Pedal Edema Neurologic/Psychiatric: Alert, Oriented x3, Normal Mood/Affect Skin: Warm/Dry, Pallor Lymphatic: No Adenopathy Results Lab Laboratory Tests 06/14/20 15:49: Glucometer 92 06/14/20 20:50: Glucometer 86 06/15/20 02:53: White Blood Count 7.4, Red Blood Count 2.71L, Hemoglobin 8.0L, Hematocrit 26L, Mean Corpuscular Volume 95, Mean Corpuscular Hemoglobin 30, Mean Corpuscular Hemoglobin Concent 31L, Red Cell Distribution Width 14.4, Platelet Count 235, Mean Platelet Volume 9.7, Sodium Level 139, Potassium Level 3.4L, Chloride Level 101, Carbon Dioxide Level 26, Anion Gap 12, Blood Urea Nitrogen 29H, Creatinine 1.34H, Estimat Glomerular Filtration Rate 38, BUN/Creatinine Ratio 22, Glucose Level 95, Calcium Level 7.7L, Corrected Calcium 8.6, Magnesium Level 1.7, Total Bilirubin 0.3, Aspartate Amino Transf (AST/SGOT) 22, Alanine Aminotransferase (ALT/SGPT) 10, Alkaline Phosphatase 33L, Total Protein 5.6L, Albumin 2.9L Microbiology 06/11/20 Blood Culture - Preliminary, Resulted No growth 06/11/20 Urine Culture - Final, Complete Escherichia coli Assessment/Plan Assessment/Plan Assessment/Plan GI bleed - large clots passed per rectum, likely lower Chest pain substernal this am Anemia- Hgb dropped to 8.0 today from 8.8 yesterday Hypokalemia- K 3.4 this am Acute exacerbation of diastolic CHF UTI Afib Acute on chronic kidney failure HTN COPD HLD T2DM GERD NPO today for planned colonoscopy Continue to hold ASA and Plavix Trend CBC's transfuse prbc as needed. HGB decreased to 8.0 today from 8.8 yesterday. Replete potassium, continue to monitor Continue current medical management Cardiology following, pacemaker placed yesterday per Dr. Swift Patient understands risk and benefits of procedure of colonoscopy. Patient also understands higher risk due to shortened period of holding antiplatelets. Plan for colonoscopy today. Clinical Quality Measures DVT/VTE Risk/Contraindication: Contraindications-Pharm: Other *list below* Other: gi bleed MARYSE AGUILLON DO 06/15/20 1553: Subjective Subjective/Events-last exam patient stools clear. no active bleeding. having some nausea due to prep causing her some chest discomfort. Hgb 8.0 No other new concerns. Objective Exam General Appearance: No Apparent Distress, Chronically ill Neck: Normal Inspection, Non Tender, Supple Respiratory: Chest Non Tender, No Accessory Muscle Use, No Respiratory Distress Cardiovascular: Regular Rate, Rhythm, No JVD Gastrointestinal: normal bowel sounds, non tender, soft Extremity: Normal Inspection, No Calf Tenderness, No Pedal Edema Neurologic/Psychiatric: Alert, Oriented x3, Normal Mood/Affect Skin: Warm/Dry, Pallor Lymphatic: No Adenopathy Assessment/Plan Assessment/Plan Assessment/Plan GI bleed lower Acute on chronic kidney failure HTN COPD HLD T2DM GERD NPO today for planned colonoscopy Continue to hold ASA and Plavix Trend CBC's transfuse prbc as needed. HGB decreased to 8.0 today from 8.8 yesterday. Replete potassium, continue to monitor Continue current medical management Cardiology following, pacemaker placed yesterday per Dr. Swift Patient understands risk and benefits of procedure of colonoscopy. Patient also understands higher risk due to shortened period of holding antiplatelets. Plan for colonoscopy today. Supervisory-Addendum Brief Verification & Attestation Participated in pt care: history, MDM, physical Personally performed: exam, history, MDM, supervision of care Care discussed with: Medical Student Procedures: n/a Results interpretation: Verified all documentation Verification and Attestation of Medical Student E/M Service A medical student performed and documented this service in my presence. I reviewed and verified all information documented by the medical student and made modifications to such information, when appropriate. I personally performed the physical exam and medical decision making. Maryse Aguillon, Jun 15, 2020,15:53 MARV STEINER MED STUDENT Jun 15, 2020 07:06 MARYSE AGUILLON DO Jun 15, 2020 15:53
[2020-06-15] MEDS: PANTOPRAZOLE 40 MG (PROTONIX) TAB PO SCH (08:04)
[2020-06-15] MEDS: meTOproloL SUCCINATE 50 MG (TOPROL XL) TAB PO SCH (08:04)
[2020-06-15] MEDS: VITAMIN D3 125 MCG (5,000 UNITS) CAPSULE PO SCH (08:04)
[2020-06-15] MEDS: LACTOBACILLUS ACIDOPHILUS (PROBIOTIC) CAPSULE PO SCH (08:04)
[2020-06-15] MEDS: doxAzosin 2 MG (CARDURA) TAB PO SCH (08:04)
[2020-06-15] MEDS: LEVOTHYROXINE 125 MCG (LEVOTHROID) TABLET PO SCH (08:05)
[2020-06-15] MEDS: FUROSEMIDE 40 MG (LASIX) TAB PO SCH ×2 (08:05→16:52)
[2020-06-15] MEDS: ISOSORBIDE MONONITRATE 60 MG (IMDUR) TAB PO SCH (08:06)
[2020-06-15] MEDS: MAGNESIUM OXIDE (MAG-OX)400 MG TAB PO SCH (08:06)
[2020-06-15] MEDS: ARTIFICAL TEARS 0.4 ML UNIT DOSE (REFRESH PLUS) OU SCH ×3 (08:06→20:29)
[2020-06-15] MEDS: eZETimibe 10 MG (ZETIA) TABLET PO SCH (08:06)
--- NOTE | 2020-06-15 08:06 | Progress Note ---
Subjective Subjective Date Seen by Provider: Jun 15, 2020 Time Seen by Provider: 07:40 Pt seen and examined. She was resting, laying in bed, NAD. She denies current SOB, chest pain, N/V. She had some epigastric pain this AM that was relieved with antacids. No further dizziness/LOC/chest pain episodes since pacemaker placement yesterday. She complains of L foot pain that started yesterday from blood pressure cuff placement. She states that she had multiple loose BM's yesterday with some blood noted. Otherwise she has no concerns/complaints. Review of Systems General: No Chills, No Night Sweats HEENT: No Head Aches, No Visual Changes Pulmonary: No Dyspnea, No Cough, No Pleuritic Chest Pain Cardiovascular: No: Chest Pain, Palpitations, Orthopnea, Edema Gastrointestinal: Diarrhea (some blood noted in stool per nursing), Other ( finishing [email or web address] prep this am); No: Nausea, Vomiting, Abdominal Pain Genitourinary: No Dysuria, No Frequency Musculoskeletal: foot pain (L foot); No: neck pain, back pain Neurological: No: Weakness, Numbness All Other Systems Reviewed All Other Systems Reviewed: Yes (Negative excepted noted.) Objective Exam Vital Signs Vital Signs - First Documented 06/11/20 10:32 Temp 36.7 Pulse 71 Resp 16 B/P (MAP) 174/65 (101) Pulse Ox 94 O2 Delivery Nasal Cannula O2 Flow Rate 3.00 Capillary Refill : Greater Than 3 Seconds General Appearance: No Apparent Distress, Chronically ill, Obese Eyes: Bilateral Eye Normal Inspection, Bilateral Eye PERRL, Bilateral Eye EOMI HEENT: PERRL/EOMI, Pharynx Normal, Pale Conjunctivae (L), Pale Conjunctivae (R) Neck: Normal Inspection, Non Tender, Supple Respiratory: Chest Non Tender, No Accessory Muscle Use, No Respiratory Distress, Decreased Breath Sounds (bilateral) Cardiovascular: Regular Rate, Rhythm, Normal Peripheral Pulses, Systolic Murmur, Irregularly Irregular Gastrointestinal: Normal Bowel Sounds, Non Tender, Soft Rectal: Deferred Back: Normal Inspection, No CVA Tenderness Extremity: Normal Capillary Refill, Normal Inspection, No Calf Tenderness, Pedal Edema (moderate nonpitting bilateral), Swelling (BLE nonpitting moderate) Neurologic/Psychiatric: Alert, Oriented x3, Normal Mood/Affect Skin: Warm/Dry, Pallor Lymphatic: No Adenopathy Results Lab Laboratory Tests 06/14/20 15:49: Glucometer 92 06/14/20 20:50: Glucometer 86 06/15/20 02:53: White Blood Count 7.4, Red Blood Count 2.71L, Hemoglobin 8.0L, Hematocrit 26L, Mean Corpuscular Volume 95, Mean Corpuscular Hemoglobin 30, Mean Corpuscular Hemoglobin Concent 31L, Red Cell Distribution Width 14.4, Platelet Count 235, Mean Platelet Volume 9.7, Sodium Level 139, Potassium Level 3.4L, Chloride Level 101, Carbon Dioxide Level 26, Anion Gap 12, Blood Urea Nitrogen 29H, Creatinine 1.34H, Estimat Glomerular Filtration Rate 38, BUN/Creatinine Ratio 22, Glucose Level 95, Calcium Level 7.7L, Corrected Calcium 8.6, Magnesium Level 1.7, Total Bilirubin 0.3, Aspartate Amino Transf (AST/SGOT) 22, Alanine Aminotransferase (ALT/SGPT) 10, Alkaline Phosphatase 33L, Total Protein 5.6L, Albumin 2.9L Microbiology 06/11/20 Blood Culture - Preliminary, Resulted No growth 06/11/20 Urine Culture - Final, Complete Escherichia coli Assessment/Plan Assessment/Plan Assessment and Plan GI bleed - large clots passed per rectum 2 days ago, blood noted in stool yes terday Acute exacerbation of diastolic CHF Syncopal episodes Paroxysmal Afib UTI Acute on chronic kidney failure - Cr 1.34 HTN - Difficult to control, home meds and continue to monitor Anemia - Hgb 8.0 Hypokalemia - K 3.4 L foot pain - s/p BP cuff placement COPD HLD T2DM Cardiology following, continue diuresis. Dual chamber pacemaker implanted yesterday General Surgery consulted for GI bleed; Aspirin/Plavix on hold, colonoscopy planned today Receiving Meropenem IV. Urine culture positive for E Coli K supplementation as needed Continue to monitor VS/labs Clinical Quality Measures DVT/VTE Risk/Contraindication: Contraindications-Pharm: Other *list below* Other: gi bleed Supervisory-Addendum Brief Verification & Attestation Participated in pt care: history, MDM, physical Personally performed: exam, history, MDM, supervision of care Care discussed with: Medical Student Procedures: n/a Results interpretation: Verified all documentation I HAVE PERSONALLY INTERVIEWED AND EXAMINED THE PATIENT. I AGREE WITH MEDICAL STUDENT DOCUMENTATION IN THE CHART. SEE MY ASSESSMENT AND PLAN FOLLOWS: NEW ONSET ATRIAL FIBRILLATION 3 SECOND PAUSES ON MONITOR STRIP OVERNIGHT ACUTE GASTROINTESTINAL BLEED ACUTE ON CHRONIC DIASTOLIC HEART FAILURE CHRONIC RECURRENT URINARY TRACT INFECTION HYPERTENSION ANEMIA ACUTE ON CHRONIC RENAL FAILURE DIABETES MELLITUS NEW ONSET ATRIAL FIBRILLATION WITH 3 SECOND PAUSES ON MONITOR STRIP OVERNIGHT- HEART RATE FROM 30'S - 100'S - DISCUSSED WITH DR. DIANA - PT IS STATUS POST PACEMAKER PLACEMENT. - PT HAD AN EVENT IN THE MIDDLE OF THE NIGHT WITH AFIB WITH RATE UP INTO THE 120'S - WAS GIVEN LOPRESSOR IV AND HEART RATE BACK INTO THE 60 - 70'S WITH BPS IN THE 100 - 110/60 RANGE. ACUTE GASTROINTESTINAL BLEED - CONSULT PLACED TO DR. UGARTE, SERIAL H AND H'S ORDERED, MONITOR SYMPTOMS CLOSELY, COLONOSCOPE TODAY - STOPPED ASA AND PLAVIX SATURDAY - WILL NEED TO HAVE HER ON XARELTO PRIOR TO DISCHARGE, WILL THEREFORE HAVE SCOPE TODAY - PT IS HIGHER RISK FOR COMPLICATION AND MORE ROBUST BLEEDING DUE TO THE FACT THAT SHE WILL NOT BE OFF OF HER PLAVIX AND ASPIRIN FOR THE USUAL 5 DAYS PRIOR TO PLANNED SCOPES. SINCE THIS IS A MORE EMERGENT EVENT, SHE WILL ONLY BE OFF OF HER PLAVIX AND ASPIRIN X 3 DAYS PRIOR TO THE SCOPE. THE RISK OF THE SCOPE IS NECESSARY FOR JOHN DUE TO HER CARDIAC RISK OF CLOTS WITH EMBOLIC STROKE DUE TO ATRIAL FIBRILLATION. ACUTE ON CHRONIC DIASTOLIC HEART FAILURE - PT ON LASIX, MONITOR SYMPTOMS CHRONIC RECURRENT URINARY TRACT INFECTION - PT ON MEROPENEM, CONTINUE CURRENT MANAGEMENT. HYPERTENSION - PT ON HOME REGIMEN ANEMIA - STABLE AT THIS TIME, SHE HAS CHRONIC ANEMIA, PLAN IS FOR COLONOSCOPE TODAY. ACUTE ON CHRONIC RENAL FAILURE - MONITOR LABS, CONTINUE WITH LOW DOSE FLUIDS DIABETES MELLITUS - STABLE MARIELY GRIJALVA MED STUDENT Jun 15, 2020 08:06 HIRAL WOLF MD Jun 15, 2020 13:09
[2020-06-15] MEDS: meTOprolol SUCCINATE 100 MG (TOPROL XL) TAB PO SCH (09:13)
[2020-06-15] MEDS ORDERED: VANCOMYCIN INJECTION 1,000 MG in NS (IVPB) 250 ML IV SCH (10:00)
[2020-06-15] MEDS: NS IV 1000 ML 1,000 ML IV SCH ×2 (10:32→15:18)
[2020-06-15] MEDS ORDERED: LACTATED RINGERS 1,000 ML IV ONE ×2 (12:34→13:00)
[2020-06-15] MEDS ORDERED: PROPOFOL INJECTION 50 ML IV ONE (13:37)
--- NOTE | 2020-06-15 13:41 | Progress Note - Cardiology ---
Cardiology SOAP Progress Note Subjective: Has had episodic chest discomfort and palpitations No syncope No shortness of breath Gen malaise No n/v/d No focal weakness Objective: I&O/Vital Signs 06/15/20 06/15/20 06/15/20 06/15/20 02:41 03:00 03:13 04:00 Temp 36.4 Pulse 63 66 77 Resp 17 24 18 B/P (MAP) 104/55 (71) 127/35 (65) 109/61 (77) Pulse Ox 95 96 96 O2 Delivery Nasal Cannula Nasal Cannula Nasal Cannula O2 Flow Rate 2.00 2.00 2.00 06/15/20 06/15/20 06/15/20 06/15/20 05:00 06:15 06:44 07:00 Pulse 80 98 67 70 Resp 20 25 24 B/P (MAP) 100/41 (60) 146/95 (112) 145/52 (83) Pulse Ox 97 94 94 O2 Delivery Nasal Cannula Nasal Cannula Nasal Cannula O2 Flow Rate 2.00 2.00 2.00 06/15/20 06/15/20 06/15/20 06/15/20 07:37 08:00 08:15 09:00 Temp 37.0 Pulse 67 71 Resp 19 8 B/P (MAP) 143/40 (74) 140/56 (84) Pulse Ox 98 98 97 O2 Delivery Nasal Cannula Nasal Cannula Nasal Cannula O2 Flow Rate 2.00 2.00 2.00 06/15/20 06/15/20 06/15/20 06/15/20 10:00 11:00 11:53 12:00 Temp 36.8 Pulse 60 60 60 Resp 13 18 18 B/P (MAP) 148/54 (85) 137/54 (81) 138/55 (82) Pulse Ox 98 98 98 O2 Delivery Nasal Cannula Nasal Cannula Nasal Cannula O2 Flow Rate 2.00 2.00 2.00 06/15/20 00:00 Intake Total 2700 ml Output Total 1500 ml Balance 1200 ml Weight (Pounds): 190 Weight (Ounces): 8.3 Weight (Calculated Kilograms): 86.447854 Device Insertion Site: without hematoma Bruising: mild bruising Constitutional: AAO x 3, well-developed, well-nourished Respiratory: No accessory muscle use; other (good bilateral air entry) Cardiovascular: regular rate-rhythm, S1 and S2, systolic murmur (soft DEVAN at card base) Gastrointestional: No tender; soft; No guarding, No rebound; audible bowel sounds Extremities: No clubbing, No cyanosis, No significant edema Neurologic/Psychiatric: oriented x 3, other (moves all limbs equally) Skin: warm/dry; No cool, No rash on exposed areas, No ulcerations on exposed areas Results/Procedures: Labs Laboratory Tests 06/14/20 15:49: Glucometer 92 06/14/20 20:50: Glucometer 86 06/15/20 02:53: White Blood Count 7.4, Red Blood Count 2.71L, Hemoglobin 8.0L, Hematocrit 26L, Mean Corpuscular Volume 95, Mean Corpuscular Hemoglobin 30, Mean Corpuscular Hemoglobin Concent 31L, Red Cell Distribution Width 14.4, Platelet Count 235, Mean Platelet Volume 9.7, Sodium Level 139, Potassium Level 3.4L, Chloride Level 101, Carbon Dioxide Level 26, Anion Gap 12, Blood Urea Nitrogen 29H, Creatinine 1.34H, Estimat Glomerular Filtration Rate 38, BUN/Creatinine Ratio 22, Glucose Level 95, Calcium Level 7.7L, Corrected Calcium 8.6, Magnesium Level 1.7, Total Bilirubin 0.3, Aspartate Amino Transf (AST/SGOT) 22, Alanine Aminotransferase (ALT/SGPT) 10, Alkaline Phosphatase 33L, Total Protein 5.6L, Albumin 2.9L 06/15/20 10:44: Glucometer 102 Microbiology 06/14/20 MRSA Screen - Final, Complete MRSA not isolated 06/11/20 Blood Culture - Preliminary, Resulted No growth 06/11/20 Urine Culture - Final, Complete Escherichia coli Laboratory Tests 06/13/20 16:07 06/13/20 20:02 06/14/20 04:20 06/15/20 02:53 A/P: Assessment: SSS with PAF and tachy-cornelius syndrome - Dual chamber pacemaker implanted on 06/14/20 to control bradycardia, functioning normally on interrogation of 06/15/20 - Beta-blockers for tachycardia - Oral anticoag held because of hematochezia that the primary care team is managing Chronic HFpEF, currently clinically compensated - Echo Mar 2020: LVEF 55-65 percent, grade 2 diastolic dysfunction, left atrial dilatation, mitral valve sclerosis, moderate aortic stenosis, pulmonary hypertension with PA pressure 45-50 mmHg Acute lower GI bleed and anemia during this hospitalization of May 2020, being managed pcp - Antiplatelet agents and OAC on hold due the above Acute on chronic renal insufficiency, 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 Intolerant to multiple medications, history of orthostatic dizziness and hypotension Chronic chest pain syndrome - cardiac catheterization done in August 2019 showed diffuse moderate coronary artery disease involving all her coronary system, nonobstructive disease - some chest discomfort documented to be associated with episode of PAF Diabetes mellitus, followed and managed by primary care physician History of recurrent UTI with multidrug resistance, managed by primary care team Degenerative joint disease History of intolerance to statin with intolerant to angiotensin receptor neeru H/o PAD but no significant claudication at this time Mild bilateral carotid stenosis Chronic pedal edema with history of chronic venous insufficiency History of urinary incontinence Plan: * I discussed her CV issues with her and answered questions * Increase bb * Monitor labs JENNIFER PITTMAN MD FACP FAC CCDS Jun 15, 2020 13:41
--- NOTE | 2020-06-15 14:31 | Anesthesia-General Post-Op ---
MAC Patient Condition Mental Status/LOC: Same as Preop Cardiovascular: Satisfactory Nausea/Vomiting: Absent Respiratory: Satisfactory Pain: Controlled Complications: Absent Post Op Complications Complications None Follow Up Care/Instructions Patient Instructions None needed. Anesthesiology Discharge Order Discharge Order Patient is doing well, no complaints, stable vital signs, no apparent adverse anesthesia problems. No complications reported per nursing. NOEMI VARGAS CRNA Jun 15, 2020 14:31
[2020-06-15] MEDS: FENOFIBRATE 134 MG (LOFIBRA) CAPSULE PO SCH (20:29)
[2020-06-15] MEDS: amLODIPine 10 MG (NORVASC) TAB PO SCH (20:29)
[2020-06-15] MEDS ORDERED: MELATONIN 3 MG TABLET ONE (21:52)
[2020-06-15] MEDS: MELATONIN 3 MG TABLET PO SCH ×3 (21:58→22:47)
--- NOTE | 2020-06-15 22:28 | OPERATIVE REPORT ---
DATE OF SERVICE: 06/15/2020 PREOPERATIVE DIAGNOSIS: Gastrointestinal bleed. POSTOPERATIVE DIAGNOSIS: Colon polyps and diverticulosis. No active bleeding. PROCEDURE: Colonoscopy with hot biopsy polypectomy x3 and placement of Resolution clip in the cecum. SURGEON: Maryse Aguillon DO ANESTHESIA: Per GREENHOUSE TRANSPLANTER. ESTIMATED BLOOD LOSS: Scant. COMPLICATIONS: None. INDICATIONS: The patient is an 84-year-old female with GI bleed, blood per rectum. It was recommended she have colonoscopy for further evaluation. She understands risks and benefits of procedure and wished to proceed with procedure. Consent was signed in the chart. DESCRIPTION OF PROCEDURE: The patient was taken to the endoscopy suite, placed in the supine position with leg elevated. A digital rectal exam was performed. There were no palpable polyps, masses or ulcerations. Scope was inserted in the rectum and advanced all the way to cecum with minimal difficulty. Prep was adequate with irrigation and suction. Small cecal polyp was present, which hot biopsy polypectomy was performed, but this was continued to bleed, so a Resolution clip was placed to achieve hemostasis. Scope was then continuously retracted back in the ascending colon, another small polyp was present, which hot biopsy polypectomy was performed. Scope was then continuously retracted back in the hepatic flexure, another small polyp was present, which hot biopsy polypectomy was performed. Scope was then continuously retracted back. There were no polyps, masses or ulcerations within the remainder of the transverse, descending and sigmoid colon. Throughout the entire colon, the patient had pandiverticulosis present. There is no evidence of any bleeding. Once in the rectum, scope was retroflexed noting no other pathology. Scope was returned to its normal position, slowly withdrawn until completely removed. The patient tolerated procedure well without any complications, taken to recovery room in stable condition. RECOMMENDATIONS: The patient with pandiverticulosis recommended high fiber diet. No active site of bleeding, would continue with current medical management. Job ID: [id number] DocumentID: [id number] Dictated Date: 06/15/2020 15:49:28 Attendance Officer Date: 06/15/2020 22:27:44 Dictated By: MARYSE AGUILLON DO
[2020-06-16] VITALS (27 sets, daily range): BP systolic 115–167; BP diastolic 42–85
[2020-06-16] MEDS: ONDANSETRON 4 MG/2 ML (SDV) Z0FRAN IV PRN (02:14)
[2020-06-16] MEDS: CALCIUM CARBONATE 500 MG (TUMS) TAB.CHEW PO PRN (02:23)
[2020-06-16] MEDS: NS IV 1000 ML 1,000 ML IV SCH ×2 (02:25→13:21)
[2020-06-16] MEDS: ACETAMINOPHEN 325 MG TABLET PO PRN ×2 (02:57→23:06)
[2020-06-16] MEDS: POTASSIUM CL 10MEQ/50ML IVPB 50 ML IV SCH ×5 (05:41→13:21)
[2020-06-16] MEDS: KCL 20 MEQ TAB (K-DUR) PO SCH (05:41)
[2020-06-16] MEDS: MAGNESIUM 1 GM/100 ML IVPB 100 ML IV SCH (05:41)
[2020-06-16] MEDS: SUCRALFATE 1 GM (CARAFATE) TAB PO SCH ×4 (05:51→20:03)
[2020-06-16] MEDS: glipiZIDE 5 MG (GLUCOTROL) TAB PO SCH ×2 (05:51→15:33)
[2020-06-16] MEDS: FUROSEMIDE 40 MG (LASIX) TAB PO SCH ×2 (05:51→16:19)
[2020-06-16] MEDS: LEVOTHYROXINE 125 MCG (LEVOTHROID) TABLET PO SCH (05:51)
[2020-06-16] MEDS: CATHETER FLUSH 10 ML SYR IV SCH ×3 (05:52→21:15)
--- NOTE | 2020-06-16 06:22 | Progress Note - Surgery ---
MARV STEINER MED STUDENT 06/16/20 0622: Subjective Date Seen by a Provider: Jun 16, 2020 Time Seen by a Provider: 06:05 Subjective/Events-last exam Patient awake upon entering room. Reports having substernal chest pain around 0130 this am that lasted for one hour and radiated into her left shoulder and left arm. She had some associated nausea and slightly increased SOB. The pain was constant and described as shooting and stabbing in quality. The pain resolved after about one hour. She was given zofran, tylenol, and tums. 2 EKG's were done and Dr. Swift was notified. Currently she denies chest pain, headaches, nausea, vomiting, abdominal pain and diarrhea. She is tolerating clear liquids without difficulty. Passing gas and no issues voiding. Denies further blood per rectum. Review of Systems General: No Chills, No Night Sweats HEENT: No Head Aches, No Visual Changes Pulmonary: Dyspnea (baseline SOB from COPD); No Cough, No Pleuritic Chest Pain Cardiovascular: No: Chest Pain, Palpitations Gastrointestinal: No: Nausea, Vomiting, Abdominal Pain Genitourinary: No Dysuria, No Frequency Musculoskeletal: No: neck pain, back pain Neurological: No: Weakness, Numbness Objective Exam Vital Signs Date Time Temp Pulse Resp B/P (MAP) Pulse Ox O2 Delivery O2 Flow Rate FiO2 06/16/20 05:55 Nasal Cannula 2.00 06/16/20 04:00 95 Nasal Cannula 2.00 06/16/20 04:00 61 21 125/42 (69) 95 Nasal Cannula 2.00 06/16/20 03:25 36.6 Nasal Cannula 2.00 06/16/20 03:00 80 22 136/58 (84) 93 Nasal Cannula 2.00 06/16/20 02:00 59 16 142/62 (88) 95 Nasal Cannula 2.00 06/16/20 01:00 60 18 144/50 (81) 96 Nasal Cannula 2.00 06/16/20 01:00 60 06/16/20 00:00 60 19 145/55 (85) 97 Nasal Cannula 2.00 06/15/20 23:30 95 Nasal Cannula 2.00 06/15/20 23:25 36.8 Nasal Cannula 2.00 06/15/20 23:00 60 15 138/52 (80) 96 Nasal Cannula 2.00 06/15/20 22:00 60 15 141/44 (76) 98 Nasal Cannula 2.00 06/15/20 21:00 76 23 145/65 (91) 97 Nasal Cannula 2.00 06/15/20 20:00 96 Nasal Cannula 2.00 06/15/20 20:00 60 18 125/38 (67) 96 Nasal Cannula 2.00 06/15/20 19:02 36.6 06/15/20 19:00 Nasal Cannula 2.00 06/15/20 19:00 60 19 131/45 (73) 97 Nasal Cannula 2.00 06/15/20 19:00 60 06/15/20 18:00 60 16 138/50 (79) 96 Nasal Cannula 2.00 06/15/20 17:00 60 13 143/48 (79) 98 Nasal Cannula 2.00 06/15/20 16:00 60 17 148/59 (88) 96 Nasal Cannula 2.00 06/15/20 15:09 36.8 06/15/20 15:08 151/73 (99) Nasal Cannula 2.00 06/15/20 14:35 80 16 92 OxyMask 4 06/15/20 14:29 81 16 95 OxyMask 6 06/15/20 14:25 80 16 95 OxyMask 8 06/15/20 12:00 60 18 138/55 (82) 98 Nasal Cannula 2.00 06/15/20 11:53 36.8 06/15/20 11:00 60 18 137/54 (81) 98 Nasal Cannula 2.00 06/15/20 10:00 60 13 148/54 (85) 98 Nasal Cannula 2.00 06/15/20 09:00 71 8 140/56 (84) 97 Nasal Cannula 2.00 06/15/20 08:15 98 Nasal Cannula 2.00 06/15/20 08:00 67 19 143/40 (74) 98 Nasal Cannula 2.00 06/15/20 07:37 37.0 06/15/20 07:00 70 24 145/52 (83) 94 Nasal Cannula 2.00 06/15/20 06:44 67 I & O 06/16/20 07:00 Intake Total 2225 ml Output Total 1525 ml Balance 700 ml Capillary Refill : Greater Than 3 Seconds General Appearance: No Apparent Distress, Chronically ill HEENT: PERRL/EOMI, Pharynx Normal, Pale Conjunctivae (L), Pale Conjunctivae (R) Neck: Normal Inspection, Non Tender, Supple Respiratory: Chest Non Tender, No Accessory Muscle Use, No Respiratory Distress, Wheezing Cardiovascular: Regular Rate, Rhythm (paced per bedside monitor), Normal Peripheral Pulses Peripheral Pulses: 2+ Dorsalis Pedis (R), 2+ Left Dors-Pedis (L), 2+ Radial Pulses (R), 2+ Radial Pulses (L) Gastrointestinal: normal bowel sounds, non tender, soft Extremity: Normal Inspection, No Calf Tenderness, No Pedal Edema Neurologic/Psychiatric: Alert, Oriented x3, Normal Mood/Affect Skin: Warm/Dry, Pallor Lymphatic: No Adenopathy Results Lab Laboratory Tests 06/15/20 10:44: Glucometer 102 06/15/20 16:08: Glucometer 94 06/15/20 20:25: Glucometer 76 Microbiology 06/14/20 MRSA Screen - Final, Complete MRSA not isolated 06/11/20 Blood Culture - Preliminary, Resulted No growth 06/11/20 Urine Culture - Final, Complete Escherichia coli Assessment/Plan Assessment/Plan Assessment/Plan S/P colonoscopy 3- GI bleed lower Colon polyps and diverticulosis Acute on chronic kidney failure HTN COPD HLD T2DM GERD Advance diet as tolerated Continue to trend CBC, Hgb dropped from 8.0 yesterday to 6.8 this am. Transfuse PRBC PRN if patient symptomatic or hemoglobin <7 Continue current medical management Cardiology following. Colonoscopy revealed colon polyps and diverticulosis with no active bleeding. Clinical Quality Measures DVT/VTE Risk/Contraindication: Contraindications-Pharm: Other *list below* Other: gi bleed MARYSE AGUILLON DO 06/16/20 1511: Subjective Subjective/Events-last exam Some chest discomfort earlier this morning however doing better. Patient is not had any further bleeding per rectum. She is not having any abdominal pain. She denies any nausea vomiting fever sweats chills shortness of breath or chest pain. Patient underwent colonoscopy yesterday which no active bleeding but did have 3 polyps which hot biopsy polypectomies performed. 1 had a little bit of bleeding that had to have a resolution clip placed on it. Patient also with significant diverticulosis that was throughout most of colon. Objective Exam General Appearance: No Apparent Distress, WD/WN HEENT: PERRL/EOMI, Pharynx Normal Neck: Normal Inspection, Non Tender Respiratory: Chest Non Tender, No Accessory Muscle Use, No Respiratory Distress Cardiovascular: Regular Rate, Rhythm (paced per bedside monitor), No JVD Gastrointestinal: normal bowel sounds, non tender, soft Extremity: Normal Inspection, Non Tender Neurologic/Psychiatric: Alert, Oriented x3 Skin: Warm/Dry, Pallor Lymphatic: No Adenopathy Assessment/Plan Assessment/Plan Assessment/Plan S/P colonoscopy 3-17 GI bleed lower Colon polyps and diverticulosis Acute on chronic kidney failure HTN COPD HLD T2DM GERD Advance diet as tolerated Continue to trend CBC, Hgb dropped from 8.0 yesterday to 6.8 this am. Transfuse PRBC PRN if patient symptomatic or hemoglobin <7 Continue current medical management Cardiology following. Colonoscopy revealed colon polyps and diverticulosis with no active bleeding. Feel bleeding most likely secondary to diverticulosis. Supervisory-Addendum Brief Verification & Attestation Participated in pt care: history, MDM, physical Personally performed: exam, history, MDM, supervision of care Care discussed with: Medical Student Procedures: n/a Results interpretation: Verified all documentation Verification and Attestation of Medical Student E/M Service A medical student performed and documented this service in my presence. I revie wed and verified all information documented by the medical student and made modifications to such information, when appropriate. I personally performed the physical exam and medical decision making. Maryse Aguillon, Jun 16, 2020,15:11 MARV STEINER MED STUDENT Jun 16, 2020 06:22 MARYSE AGUILLON DO Jun 16, 2020 15:11
[2020-06-16] MEDS: inSUlin ASPART (NovoLOG) 1 UNIT/0.01 ML (CHARGE PER UNIT) SQ SCH ×4 (06:41→21:13)
[2020-06-16 06:50] LABS: BASOPHILS % (AUTO) 1 % (0-10); EOSINOPHILS # (AUTO) 0.3 10^3/uL (0.0-0.3); EOSINOPHILS % (AUTO) 4 % (0-10); HEMATOCRIT 22 % (35-52); LYMPHOCYTES # (AUTO) 0.5 10^3/uL (1.0-4.0); LYMPHOCYTES % (AUTO) 7 % (12-44); MEAN CORPUSCULAR HEMOGLOBIN 29 pg (25-34); MEAN CORPUSCULAR HGB CONC 31 g/dL (32-36); MEAN CORPUSCULAR VOLUME 96 fL (80-99); MEAN PLATELET VOLUME 9.3 fL (9.0-12.2); MONOCYTES # (AUTO) 0.5 10^3/uL (0.0-1.0); MONOCYTES % (AUTO) 6 % (0-12); NEUTROPHILS % (AUTO) 81 % (42-75); PLATELET COUNT 217 10^3/uL (130-400); WHITE BLOOD COUNT 7.3 10^3/uL (4.3-11.0)
[2020-06-16 06:53] LABS: HEMOGLOBIN 6.8 g/dL (11.5-16.0)
[2020-06-16 07:13] LABS: CALCIUM 7.6 MG/DL (8.5-10.1); CREATININE SERUM 1.22 MG/DL (0.60-1.30); MAGNESIUM 1.8 MG/DL (1.6-2.4); PHOSPHORUS 3.2 MG/DL (2.3-4.7); POTASSIUM 3.1 MMOL/L (3.6-5.0)
--- NOTE | 2020-06-16 07:49 | Diagnostic Imaging Report ---
CHEST 1 VIEW, AP/PA ONLY Indication: Congestive heart failure. Comparison: 06/15/2020 Findings: Stable left pectoral transvenous pacemaker. Stable cardiomegaly. Bilateral perihilar central vascular redistribution. Interlobular septal thickening in the periphery of the right lung is similar. No pleural effusion or pneumothorax. Impression: 1. Stable changes of probable mild interstitial pulmonary edema. Dictated by: Dictated on workstation # [id number]
[2020-06-16] MEDS: NS IV 500 ML 500 ML IV SCH ×2 (08:04→08:22)
[2020-06-16] MEDS: KCL 20 MEQ TAB (K-DUR) PO ONE ×2 (08:05→08:11)
[2020-06-16] MEDS: VITAMIN D3 125 MCG (5,000 UNITS) CAPSULE PO SCH (08:08)
[2020-06-16] MEDS: LACTOBACILLUS ACIDOPHILUS (PROBIOTIC) CAPSULE PO SCH (08:08)
--- NOTE | 2020-06-16 08:08 | Progress Note ---
Subjective Subjective Date Seen by Provider: Jun 16, 2020 Time Seen by Provider: 07:30 Pt seen and examined. She was resting, laying in bed, NAD. She denies current SOB, chest pain, N/V, lightheadedness. She had an episode of severe chest pain that woke her up at about 2AM this morning; she states that a sharp/stabbing chest pain that radiated to her L arm woke her up. EKG's were obtained and Dr. Swift notified. The pain resolved after admin of tums and Tylenol about 40min after onset. Hgb was 6.8 this morning and 1U PRBC was ordered. She is inquiring about when she can eat. Review of Systems General: No Chills, No Night Sweats HEENT: No Head Aches, No Visual Changes Pulmonary: Dyspnea (baseline SOB from COPD); No Cough, No Pleuritic Chest Pain Cardiovascular: Chest Pain (see HPI); No: Palpitations Gastrointestinal: No: Nausea, Vomiting, Abdominal Pain Genitourinary: No Dysuria, No Frequency Musculoskeletal: No: neck pain, back pain Neurological: No: Weakness, Numbness All Other Systems Reviewed All Other Systems Reviewed: Yes (Negative excepted noted.) Objective Exam Vital Signs Vital Signs - First Documented 06/11/20 10:32 Temp 36.7 Pulse 71 Resp 16 B/P (MAP) 174/65 (101) Pulse Ox 94 O2 Delivery Nasal Cannula O2 Flow Rate 3.00 Capillary Refill : Greater Than 3 Seconds General Appearance: No Apparent Distress, Chronically ill, Obese Eyes: Bilateral Eye Normal Inspection, Bilateral Eye PERRL, Bilateral Eye EOMI HEENT: PERRL/EOMI, Pharynx Normal, Pale Conjunctivae (L), Pale Conjunctivae (R) Neck: Normal Inspection, Non Tender, Supple Respiratory: Chest Non Tender, No Accessory Muscle Use, No Respiratory Distress, Wheezing Cardiovascular: Normal Peripheral Pulses, Systolic Murmur, Irregularly Irregular, Other (BLE moderate nonpitting) Gastrointestinal: Normal Bowel Sounds, Non Tender, Soft Rectal: Deferred Back: Normal Inspection, No CVA Tenderness Extremity: Normal Inspection, No Calf Tenderness, Pedal Edema (bilateral) Neurologic/Psychiatric: Alert, Oriented x3, Normal Mood/Affect Skin: Warm/Dry, Pallor Lymphatic: No Adenopathy Results Lab Laboratory Tests 06/15/20 10:44: Glucometer 102 3/17/21 16:08: Glucometer 94 06/15/20 20:25: Glucometer 76 06/16/20 06:39: Glucometer 75 06/16/20 06:40: White Blood Count 7.3, Red Blood Count 2.32L, Hemoglobin 6.8*L, Hematocrit 22L, Mean Corpuscular Volume 96, Mean Corpuscular Hemoglobin 29, Mean Corpuscular Hemoglobin Concent 31L, Red Cell Distribution Width 14.4, Platelet Count 217, Mean Platelet Volume 9.3, Immature Granulocyte % (Auto) 1, Neutrophils (%) (Auto) 81H, Lymphocytes (%) (Auto) 7L, Monocytes (%) (Auto) 6, Eosinophils (%) (Auto) 4, Basophils (%) (Auto) 1, Neutrophils # (Auto) 6.0, Lymphocytes # (Auto) 0.5L, Monocytes # (Auto) 0.5, Eosinophils # (Auto) 0.3, Basophils # (Auto) 0.0, Immature Granulocyte # (Auto) 0.1, Sodium Level 140, Potassium Level 3.1L, Chloride Level 103, Carbon Dioxide Level 27, Anion Gap 10, Blood Urea Nitrogen 23H, Creatinine 1.22, Estimat Glomerular Filtration Rate 42, BUN/Creatinine Ratio 19, Glucose Level 75, Calcium Level 7.6L, Phosphorus Level 3.2, Magnesium Level 1.8 Microbiology 06/14/20 MRSA Screen - Final, Complete MRSA not isolated 06/11/20 Blood Culture - Preliminary, Resulted No growth 06/11/20 Urine Culture - Final, Complete Escherichia coli Assessment/Plan Assessment/Plan Assessment and Plan Acute GI bleed Acute exacerbation of diastolic CHF Syncopal episodes Paroxysmal Afib UTI Acute on chronic kidney failure - Cr 1.34 HTN - Difficult to control, home meds and continue to monitor Anemia - Hgb 6.8 Hypokalemia - K 3.4 L foot pain - s/p BP cuff placement COPD HLD T2DM Cardiology following, continue diuresis. DC pacemaker placed 2 days ago 1U PRBC for Hgb 6.8 this AM General Surgery consulted for GI bleed; Aspirin/Plavix on hold. colonoscopy yesterday showed polyps/diverticulosis with no signs of active bleed Receiving Meropenem IV. Urine culture positive for E Coli K supplementation as needed Continue to monitor VS/labs Clinical Quality Measures DVT/VTE Risk/Contraindication: Contraindications-Pharm: Other *list below* Other: gi bleed Supervisory-Addendum Brief Verification & Attestation Participated in pt care: history, MDM, physical Personally performed: exam, history, MDM, supervision of care Care discussed with: Medical Student Procedures: n/a Results interpretation: Verified all documentation I HAVE PERSONALLY INTERVIEWED AND EXAMINED THE PATIENT. I AGREE WITH MEDICAL STUDENT DOCUMENTATION IN THE CHART. SEE MY ASSESSMENT AND PLAN FOLLOWS: NEW ONSET ATRIAL FIBRILLATION ACUTE GASTROINTESTINAL BLEED ACUTE ON CHRONIC DIASTOLIC HEART FAILURE CHRONIC RECURRENT URINARY TRACT INFECTION HYPERTENSION ANEMIA ACUTE ON CHRONIC RENAL FAILURE DIABETES MELLITUS NEW ONSET ATRIAL FIBRILLATION WITH 3 SECOND PAUSES ON MONITOR STRIP OVERNIGHT- HEART RATE FROM 30'S - 100'S - DISCUSSED WITH DR. DIANA - PT IS STATUS POST PACEMAKER PLACEMENT. -PT STABLE ON METOPROLOL, HEART RATE BETTER CONTROLLED AT THIS TIME. ACUTE GASTROINTESTINAL BLEED - CONSULT PLACED TO DR. UGARTE, SERIAL H AND H'S ORDERED, MONITOR SYMPTOMS CLOSELY, COLONOSCOPE REVEALED NO ACUTE SOURCE OF BLEED, BIOPSIES TAKEN, WAITING ON PATHOLOGY - STOPPED ASA AND PLAVIX SATURDAY -DISCUSSED WITH PT - SHE IS NOT CERTAIN THAT SHE WANTS TO BE ON ANTICOAGULATION DESPITE RISK OF EMBOLIC STROKE, WILL WAIT ON PATHOLOGY REPORT, MAY NEED TO CONSIDER PILL ENDOSCOPY VERSUS MONITORING OVER TIME OUTPATIENT. ACUTE ON CHRONIC DIASTOLIC HEART FAILURE - PT ON LASIX, MONITOR SYMPTOMS CHRONIC RECURRENT URINARY TRACT INFECTION - PT ON MEROPENEM, CONTINUE CURRENT MANAGEMENT - EXTENDED OUT ANTIBIOTIC UNTIL 06/18/20 HYPERTENSION - PT ON HOME REGIMEN ANEMIA - STABLE AT THIS TIME, SHE HAS CHRONIC ANEMIA ACUTE ON CHRONIC RENAL FAILURE - MONITOR LABS, CONTINUE WITH LOW DOSE FLUIDS DIABETES MELLITUS - STABLE MARIELY GRIJALVA MED STUDENT Jun 16, 2020 08:08 HIRAL WOLF MD Jun 17, 2020 10:42
[2020-06-16] MEDS: ARTIFICAL TEARS 0.4 ML UNIT DOSE (REFRESH PLUS) OU SCH ×3 (08:09→20:03)
[2020-06-16] MEDS: ISOSORBIDE MONONITRATE 60 MG (IMDUR) TAB PO SCH (08:09)
[2020-06-16] MEDS: eZETimibe 10 MG (ZETIA) TABLET PO SCH (08:09)
[2020-06-16] MEDS: meTOprolol SUCCINATE 100 MG (TOPROL XL) TAB PO SCH (08:09)
[2020-06-16] MEDS: PANTOPRAZOLE 40 MG (PROTONIX) TAB PO SCH (08:09)
[2020-06-16] MEDS: MAGNESIUM OXIDE (MAG-OX)400 MG TAB PO SCH (08:09)
--- NOTE | 2020-06-16 09:11 | Progress Note - Cardiology ---
Cardiology SOAP Progress Note Subjective: Continues to have episodes of sharp chest pains, L or R parasternal, sometimes severe, lasting up to 30 min, nonradiating, w/o aggravating factors, improved with analgesics. Has reported allergy to Tylenol but has been able to take it during this admission with improvement of symptoms No palp or syncope Gen malaise and weakness No n/v/d No shortness of breath at rest Objective: I&O/Vital Signs 06/15/20 06/15/20 06/15/20 06/15/20 22:00 23:00 23:25 23:30 Temp 36.8 Pulse 60 60 Resp 15 15 B/P (MAP) 141/44 (76) 138/52 (80) Pulse Ox 98 96 95 O2 Delivery Nasal Cannula Nasal Cannula Nasal Cannula Nasal Cannula O2 Flow Rate 2.00 2.00 2.00 2.00 06/16/20 06/16/20 06/16/20 06/16/20 00:00 01:00 01:00 02:00 Pulse 60 60 60 59 Resp 19 18 16 B/P (MAP) 145/55 (85) 144/50 (81) 142/62 (88) Pulse Ox 97 96 95 O2 Delivery Nasal Cannula Nasal Cannula Nasal Cannula O2 Flow Rate 2.00 2.00 2.00 06/16/20 06/16/20 06/16/20 06/16/20 03:00 03:25 04:00 04:00 Temp 36.6 Pulse 80 61 Resp 22 21 B/P (MAP) 136/58 (84) 125/42 (69) Pulse Ox 93 95 95 O2 Delivery Nasal Cannula Nasal Cannula Nasal Cannula Nasal Cannula O2 Flow Rate 2.00 2.00 2.00 2.00 06/16/20 06/16/20 06/16/20 06/16/20 05:00 05:55 06:00 06:30 Pulse 60 60 61 Resp 18 14 B/P (MAP) 126/44 (71) 122/46 (71) Pulse Ox 96 100 O2 Delivery Nasal Cannula Nasal Cannula Nasal Cannula O2 Flow Rate 2.00 2.00 2.00 06/16/20 06/16/20 07:06 08:09 Temp 36.3 Pulse Ox 100 O2 Delivery Nasal Cannula O2 Flow Rate 2.00 06/16/20 00:00 Intake Total 900 ml Output Total 900 ml Balance 0 ml Weight (Pounds): 190 Weight (Ounces): 8.3 Weight (Calculated Kilograms): 86.258252 Device Insertion Site: without hematoma Bruising: mild bruising Constitutional: AAO x 3, well-developed, well-nourished Respiratory: No accessory muscle use; other (good bilateral air entry) Cardiovascular: regular rate-rhythm, S1 and S2, systolic murmur (soft DEVAN at card base) Gastrointestional: No tender; soft; No guarding, No rebound; audible bowel sounds Extremities: No clubbing, No cyanosis, No significant edema Neurologic/Psychiatric: oriented x 3, other (moves all limbs equally) Skin: warm/dry; No cool; pallor; No rash on exposed areas, No ulcerations on exposed areas Results/Procedures: Labs Laboratory Tests 06/15/20 10:44: Glucometer 102 06/15/20 16:08: Glucometer 94 06/15/20 20:25: Glucometer 76 06/16/20 06:39: Glucometer 75 06/16/20 06:40: White Blood Count 7.3, Red Blood Count 2.32L, Hemoglobin 6.8*L, Hematocrit 22L, Mean Corpuscular Volume 96, Mean Corpuscular Hemoglobin 29, Mean Corpuscular Hemoglobin Concent 31L, Red Cell Distribution Width 14.4, Platelet Count 217, Mean Platelet Volume 9.3, Immature Granulocyte % (Auto) 1, Neutrophils (%) (Auto) 81H, Lymphocytes (%) (Auto) 7L, Monocytes (%) (Auto) 6, Eosinophils (%) (Auto) 4, Basophils (%) (Auto) 1, Neutrophils # (Auto) 6.0, Lymphocytes # (Auto) 0.5L, Monocytes # (Auto) 0.5, Eosinophils # (Auto) 0.3, Basophils # (Auto) 0.0, Immature Granulocyte # (Auto) 0.1, Sodium Level 140, Potassium Level 3.1L, Chloride Level 103, Carbon Dioxide Level 27, Anion Gap 10, Blood Urea Nitrogen 23H, Creatinine 1.22, Estimat Glomerular Filtration Rate 42, BUN/Creatinine Ratio 19, Glucose Level 75, Calcium Level 7.6L, Phosphorus Level 3.2, Magnesium Level 1.8 Microbiology 06/14/20 MRSA Screen - Final, Complete MRSA not isolated 06/11/20 Blood Culture - Preliminary, Resulted No growth 06/11/20 Urine Culture - Final, Complete Escherichia coli Laboratory Tests 06/15/20 02:53 06/16/20 06:40 A/P: Assessment: SSS with PAF and tachy-cornelius syndrome - Dual chamber pacemaker implanted on 06/14/20 to control bradycardia, functioning normally on interrogation of 06/15/20 - Beta-blockers for tachycardia - Oral anticoag held because of hematochezia that the primary care team is managing Chronic HFpEF, currently clinically compensated - Echo Mar 2020: LVEF 55-65 percent, grade 2 diastolic dysfunction, left atrial dilatation, mitral valve sclerosis, moderate aortic stenosis, pulmonary hypertension with PA pressure 45-50 mmHg Acute lower GI bleed and anemia during this hospitalization of May 2020, being managed pcp - Antiplatelet agents and OAC on hold due the above - Colonoscopy with hot biopsy polypectomy x3 and placement of Resolution clip (for continuing bleeding after polypectomy) in the cecum - Marked blood loss anemia requiring blood transfusions Acute on chronic renal insufficiency, 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 Intolerant to multiple medications, history of orthostatic dizziness and hypotension Chronic chest pain syndrome, continuing during this hospitalization - cardiac catheterization done in August 2019 showed diffuse moderate coronary artery disease involving all her coronary system, nonobstructive disease - some chest discomfort documented to be associated with episode of PAF Diabetes mellitus, followed and managed by primary care physician History of recurrent UTI with multidrug resistance, managed by primary care team Degenerative joint disease History of intolerance to statin with intolerant to angiotensin receptor neeru H/o PAD but no significant claudication at this time Mild bilateral carotid stenosis Chronic pedal edema with history of chronic venous insufficiency History of urinary incontinence Plan: * Complex management due to multiple comorbidities and symptoms * Anticoag currently being held due to GI bleed requiring transfusions (getting transfused today). Please resume oral anticoag for stroke prophylaxis as soon as safe from a medical and surg standpoint. Will defer that to the primary care team * Monitor labs JENNIFER PITTMAN MD FACP FAC CCDS Jun 16, 2020 09:11
[2020-06-16] MEDS ORDERED: KCL 20 MEQ TAB (K-DUR) PO ONE (09:45)
[2020-06-16] MEDS: MEROPENEM 500 MG in WATER (STERILE) FOR INJECTION 10 ML IV SCH ×2 (10:56→17:18)
[2020-06-16] MEDS ORDERED: MIRTAZAPINE 15 MG (REMERON) TAB PO PRN (12:00)
[2020-06-16] MEDS ORDERED: FUROSEMIDE 40 MG/4 ML INJ (LASIX) IVP ONE (12:00)
[2020-06-16] MEDS ORDERED: diphenhydrAMINE 50 MG/ML INJ (BENADRYL) ONE (12:08)
[2020-06-16] MEDS: diphenhydrAMINE 50 MG/ML INJ (BENADRYL) IVP PRN (12:18)
[2020-06-16 14:30] LABS: HEMOGLOBIN 8.5 g/dL (11.5-16.0)
[2020-06-16] MEDS ORDERED: ENOXAPARIN 40 MG/0.4 ML (LOVENOX) SYR SC NR (19:30)
[2020-06-16] MEDS: amLODIPine 10 MG (NORVASC) TAB PO SCH (20:03)
[2020-06-16] MEDS: FENOFIBRATE 134 MG (LOFIBRA) CAPSULE PO SCH (20:03)
[2020-06-16 21:23] LABS: HEMOGLOBIN 8.4 g/dL (11.5-16.0)
[2020-06-16] MEDS: MELATONIN 3 MG TABLET PO SCH (23:05)
[2020-06-17] VITALS (23 sets, daily range): BP systolic 111–182; BP diastolic 39–86
[2020-06-17] MEDS: NS IV 1000 ML 1,000 ML IV SCH ×3 (00:07→20:51)
[2020-06-17] MEDS: MEROPENEM 500 MG in WATER (STERILE) FOR INJECTION 10 ML IV SCH ×3 (00:45→16:06)
[2020-06-17 04:24] LABS: BASOPHILS # (AUTO) 0.1 10^3/uL (0.0-0.1); BASOPHILS % (AUTO) 1 % (0-10); EOSINOPHILS # (AUTO) 0.4 10^3/uL (0.0-0.3); EOSINOPHILS % (AUTO) 4 % (0-10); HEMATOCRIT 27 % (35-52); HEMOGLOBIN 8.3 g/dL (11.5-16.0); LYMPHOCYTES # (AUTO) 0.8 10^3/uL (1.0-4.0); LYMPHOCYTES % (AUTO) 10 % (12-44); MEAN CORPUSCULAR HEMOGLOBIN 29 pg (25-34); MEAN CORPUSCULAR HGB CONC 31 g/dL (32-36); MEAN CORPUSCULAR VOLUME 94 fL (80-99); MEAN PLATELET VOLUME 9.8 fL (9.0-12.2); MONOCYTES # (AUTO) 0.7 10^3/uL (0.0-1.0); MONOCYTES % (AUTO) 8 % (0-12); NEUTROPHILS # (AUTO) 6.2 10^3/uL (1.8-7.8); NEUTROPHILS % (AUTO) 76 % (42-75); PLATELET COUNT 225 10^3/uL (130-400); WHITE BLOOD COUNT 8.2 10^3/uL (4.3-11.0)
[2020-06-17 04:43] LABS: CALCIUM 7.5 MG/DL (8.5-10.1); CREATININE SERUM 1.41 MG/DL (0.60-1.30); MAGNESIUM 1.6 MG/DL (1.6-2.4); PHOSPHORUS 2.8 MG/DL (2.3-4.7); POTASSIUM 3.3 MMOL/L (3.6-5.0)
[2020-06-17] MEDS: POTASSIUM CL 10MEQ/50ML IVPB 50 ML IV SCH ×5 (04:47→08:18)
[2020-06-17] MEDS: MAGNESIUM 1 GM/100 ML IVPB 100 ML IV SCH ×3 (04:47→06:02)
[2020-06-17] MEDS: CATHETER FLUSH 10 ML SYR IV SCH ×3 (04:47→20:51)
[2020-06-17] MEDS: KCL 20 MEQ TAB (K-DUR) PO SCH (04:48)
[2020-06-17] MEDS: inSUlin ASPART (NovoLOG) 1 UNIT/0.01 ML (CHARGE PER UNIT) SQ SCH ×4 (04:48→20:51)
[2020-06-17] MEDS: SUCRALFATE 1 GM (CARAFATE) TAB PO SCH ×4 (04:59→20:50)
[2020-06-17] MEDS: FUROSEMIDE 40 MG (LASIX) TAB PO SCH ×2 (04:59→16:06)
[2020-06-17] MEDS: LEVOTHYROXINE 125 MCG (LEVOTHROID) TABLET PO SCH (05:01)
--- NOTE | 2020-06-17 06:52 | Progress Note - Surgery ---
MARV STEINER MED STUDENT 06/17/20 0652: Subjective Date Seen by a Provider: Jun 17, 2020 Time Seen by a Provider: 06:30 Subjective/Events-last exam Patient asleep upon entering room. Awoke to voice. Reports sleeping through most of the night. This am she denies chest pain, headache, SOB, fevers, and pain. She reports feeling better since being transfused yesterday. She is tolerating po intake well with no nausea, vomiting, or abdominal pain. Reports her last BM was approximately 2 days ago without blood. She reports still feeling weak, but is improving a bit. 100% paced per bedside monitor. Review of Systems General: No Chills, No Night Sweats; Fatigue HEENT: No Head Aches, No Visual Changes Pulmonary: No Dyspnea, No Cough Cardiovascular: No: Chest Pain, Palpitations, Lt Headedness Gastrointestinal: No: Nausea, Vomiting, Abdominal Pain, Hematochezia Genitourinary: No Dysuria, No Frequency Musculoskeletal: No: neck pain, back pain, leg pain Neurological: No: Weakness, Numbness Objective Exam Vital Signs Date Time Temp Pulse Resp B/P (MAP) Pulse Ox O2 Delivery O2 Flow Rate FiO2 06/17/20 06:00 60 14 144/52 (82) 97 Nasal Cannula 2.00 06/17/20 05:00 60 18 120/42 (68) 97 Nasal Cannula 2.00 06/17/20 04:15 97 Nasal Cannula 2.00 06/17/20 04:15 36.7 Nasal Cannula 2.00 06/17/20 04:00 60 19 111/51 (71) 95 Nasal Cannula 2.00 06/17/20 03:00 60 19 124/47 (72) 95 Nasal Cannula 2.00 06/17/20 02:00 60 18 118/43 (68) 92 Nasal Cannula 2.00 06/17/20 01:00 59 12 98 Nasal Cannula 2.00 06/17/20 00:22 60 06/17/20 00:00 59 26 145/39 (74) 99 Nasal Cannula 2.00 06/16/20 23:05 96 Nasal Cannula 2.00 06/16/20 23:00 60 24 134/71 (92) 96 Nasal Cannula 2.00 06/16/20 23:00 36.9 Nasal Cannula 2.00 06/16/20 22:00 60 19 157/55 (89) 96 Nasal Cannula 2.00 06/16/20 21:00 60 25 163/64 (97) 100 Nasal Cannula 2.00 06/16/20 20:00 60 13 161/54 (89) 99 Nasal Cannula 2.00 06/16/20 20:00 97 Nasal Cannula 2.00 06/16/20 20:00 Nasal Cannula 2.00 06/16/20 19:58 37.5 06/16/20 19:13 60 06/16/20 19:00 60 25 152/48 (82) 98 Nasal Cannula 2.00 06/16/20 18:00 60 25 126/76 (93) 100 Nasal Cannula 2.00 06/16/20 17:00 59 16 128/60 (82) 98 Nasal Cannula 2.00 06/16/20 16:00 60 21 155/57 (89) 100 Nasal Cannula 2.00 06/16/20 15:26 36.6 06/16/20 15:04 Nasal Cannula 2.00 06/16/20 15:00 59 20 153/54 (87) 96 Nasal Cannula 2.00 06/16/20 14:00 59 18 157/59 (91) 99 Nasal Cannula 2.00 06/16/20 13:00 60 18 152/72 (98) 97 Nasal Cannula 2.00 06/16/20 12:32 Nasal Cannula 2.00 06/16/20 12:26 60 06/16/20 12:00 60 16 157/71 (99) 96 Nasal Cannula 2.00 06/16/20 12:00 36.8 06/16/20 11:56 36.8 60 7 167/64 99 Nasal Cannula 2.00 06/16/20 11:00 80 18 154/52 (86) 97 Nasal Cannula 2.00 06/16/20 10:00 60 19 149/58 (88) 98 Nasal Cannula 2.00 06/16/20 09:40 36.4 60 12 153/62 99 Nasal Cannula 2.00 06/16/20 09:20 36.4 60 19 115/85 98 Nasal Cannula 2.00 06/16/20 09:00 60 19 115/85 (95) 97 Nasal Cannula 2.00 06/16/20 08:09 36.3 06/16/20 08:00 68 21 138/71 (93) 99 Nasal Cannula 2.00 06/16/20 08:00 Nasal Cannula 2.00 06/16/20 07:06 100 Nasal Cannula 2.00 06/16/20 07:00 60 15 128/50 (76) 97 Nasal Cannula 2.00 I & O 06/17/20 07:00 Intake Total 4819 ml Output Total 2375 ml Balance 2444 ml Capillary Refill : Greater Than 3 Seconds General Appearance: No Apparent Distress, Chronically ill HEENT: PERRL/EOMI, Pharynx Normal, Moist Mucous Membranes, Pale Conjunctivae (L), Pale Conjunctivae (R) Neck: Normal Inspection, Non Tender Respiratory: Chest Non Tender, No Accessory Muscle Use, No Respiratory Distress, Wheezing (end expiratory wheezing bilaterally) Cardiovascular: Regular Rate, Rhythm (paced per bedside monitor), Normal Peripheral Pulses, Other (100% paced currently per bedside monitor) Peripheral Pulses: 2+ Dorsalis Pedis (R), 2+ Left Dors-Pedis (L), 2+ Radial Pulses (R), 2+ Radial Pulses (L) Gastrointestinal: normal bowel sounds, non tender, soft Extremity: Normal Inspection, Non Tender, No Calf Tenderness Neurologic/Psychiatric: Alert, Oriented x3, Normal Mood/Affect Skin: Warm/Dry, Ecchymosis (around IV site), Pallor Lymphatic: No Adenopathy Results Lab Laboratory Tests 06/16/20 11:07: Glucometer 86 06/16/20 14:25: Hemoglobin 8.5#L, Hematocrit 27L 06/16/20 16:25: Glucometer 79 06/16/20 20:18: Glucometer 113H 06/16/20 20:50: Hemoglobin 8.4L, Hematocrit 26L 06/17/20 04:10: Hemoglobin 8.3L, Hematocrit 27L, White Blood Count 8.2, Red Blood Count 2.82L, Mean Corpuscular Volume 94, Mean Corpuscular Hemoglobin 29, Mean Corpuscular Hemoglobin Concent 31L, Red Cell Distribution Width 14.4, Platelet Count 225, Mean Platelet Volume 9.8, Immature Granulocyte % (Auto) 1, Neutrophils (%) (Auto) 76H, Lymphocytes (%) (Auto) 10L, Monocytes (%) (Auto) 8, Eosinophils (%) (Auto) 4, Basophils (%) (Auto) 1, Neutrophils # (Auto) 6.2, Lymphocytes # (Auto) 0.8L, Monocytes # (Auto) 0.7, Eosinophils # (Auto) 0.4H, Basophils # (Auto) 0.1, Immature Granulocyte # (Auto) 0.1, Sodium Level 141, Potassium Level 3.3L, Chloride Level 105, Carbon Dioxide Level 27, Anion Gap 9, Blood Urea Nitrogen 24H, Creatinine 1.41H, Estimat Glomerular Filtration Rate 36, BUN/Creatinine Ratio 17, Glucose Level 66L, Calcium Level 7.5L, Phosphorus Level 2.8, Magnesium Level 1.6 06/17/20 06:05: Glucometer 98 Microbiology 06/14/20 MRSA Screen - Final, Complete MRSA not isolated 06/11/20 Blood Culture - Final, Complete No growth 06/11/20 Urine Culture - Final, Complete Escherichia coli Assessment/Plan Assessment/Plan Assessment/Plan S/P colonoscopy 3- S/P dual chamber pacemaker 3- GI bleed lower Hypokalemia- K 3.3 this am Colon polyps and diverticulosis Acute on chronic kidney failure SSS wit PAF HTN 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 Colonoscopy revealed colon polyps and diverticulosis with no active bleeding. Feel bleeding most likely secondary to diverticulosis. Clinical Quality Measures DVT/VTE Risk/Contraindication: Contraindications-Pharm: Other *list below* Other: gi bleed MARYSE AGUILLON DO 06/17/20 0941: Subjective Subjective/Events-last exam Patient no more bloody bm. Hgb stable at 8.3. Had VQ scan this am.No abdominal pain. Denies n/v fever sweats chills shortness of breath or chest pain at this time. Objective Exam General Appearance: No Apparent Distress, Chronically ill HEENT: PERRL/EOMI, Normal ENT Inspection, Pharynx Normal Neck: Normal Inspection, Non Tender Respiratory: Chest Non Tender, No Accessory Muscle Use, No Respiratory Distress Cardiovascular: Regular Rate, Rhythm (paced per bedside monitor), No JVD Gastrointestinal: normal bowel sounds, non tender, soft Extremity: Normal Inspection, Non Tender, No Calf Tenderness Neurologic/Psychiatric: Alert, Oriented x3, Normal Mood/Affect Skin: Warm/Dry, Pallor Lymphatic: No Adenopathy Assessment/Plan Assessment/Plan Assessment/Plan S/P colonoscopy 3-17 S/P dual chamber pacemaker 3-16 GI bleed lower Hypokalemia- K 3.3 this am Colon polyps and diverticulosis Acute on chronic kidney failure SSS wit PAF HTN 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 Colonoscopy revealed colon polyps and diverticulosis with no active bleeding. Feel bleeding most likely secondary to diverticulosis. Supervisory-Addendum Brief Verification & Attestation Participated in pt care: history, MDM, physical Personally performed: exam, history, MDM, supervision of care Care discussed with: Medical Student Procedures: n/a Results interpretation: Verified all documentation Verification and Attestation of Medical Student E/M Service A medical student performed and documented this service in my presence. I reviewed and verified all information documented by the medical student and made modifications to such information, when appropriate. I personally performed the physical exam and medical decision making. Maryse Aguillon, Jun 17, 2020,09:46 MARV STEINER MED STUDENT Jun 17, 2020 06:52 MARYSE AGUILLON DO Jun 17, 2020 09:41
--- NOTE | 2020-06-17 07:42 | Diagnostic Imaging Report ---
INDICATION: Congestive heart failure. Comparison made with prior examination from 06/08/2020 FINDINGS: There is cardiomegaly. There is some venous congestion. There is no pleural effusion or pneumothorax. The mediastinum is unremarkable. Pacemaker overlies left hemithorax. IMPRESSION: Cardiomegaly and mild central pulmonary venous congestion. Dictated by: Dictated on workstation # [id number]
--- NOTE | 2020-06-17 08:09 | Progress Note ---
Subjective Subjective Date Seen by Provider: Jun 17, 2020 Time Seen by Provider: 08:30 Pt seen and examined. She was sleeping, laying in bed, NAD. She denies current SOB, chest pain, N/V, lightheadedness. She had an episode of chest pain yesterday afternoon per nursing, but she doesn't recall the event. No other con cerns/complaints. Review of Systems General: No Chills, No Night Sweats; Fatigue HEENT: No Head Aches, No Visual Changes Pulmonary: No Dyspnea, No Cough Cardiovascular: No: Chest Pain, Palpitations, Lt Headedness Gastrointestinal: No: Nausea, Vomiting, Abdominal Pain, Hematochezia Genitourinary: No Dysuria, No Frequency Musculoskeletal: No: neck pain, back pain, leg pain Neurological: No: Weakness, Numbness All Other Systems Reviewed All Other Systems Reviewed: Yes (Negative excepted noted.) Objective Exam Vital Signs Vital Signs - First Documented 06/11/20 10:32 Temp 36.7 Pulse 71 Resp 16 B/P (MAP) 174/65 (101) Pulse Ox 94 O2 Delivery Nasal Cannula O2 Flow Rate 3.00 Capillary Refill : Greater Than 3 Seconds General Appearance: No Apparent Distress, Chronically ill, Obese Eyes: Bilateral Eye Normal Inspection, Bilateral Eye PERRL, Bilateral Eye EOMI HEENT: PERRL/EOMI, Pharynx Normal, Moist Mucous Membranes, Pale Conjunctivae (L), Pale Conjunctivae (R) Neck: Normal Inspection, Non Tender Respiratory: Chest Non Tender, No Accessory Muscle Use, No Respiratory Distress, Wheezing (end expiratory wheezing bilaterally) Cardiovascular: Regular Rate, Rhythm, Normal Peripheral Pulses, Systolic Murmur, Other (paced at 60) Gastrointestinal: Normal Bowel Sounds, Non Tender, Soft Rectal: Deferred Back: Normal Inspection, No CVA Tenderness Extremity: Normal Inspection, Non Tender, No Calf Tenderness, Other (moderate nonpitting BLE) Neurologic/Psychiatric: Alert, Oriented x3, Normal Mood/Affect Skin: Warm/Dry, Pallor Lymphatic: No Adenopathy Results Lab Laboratory Tests 06/16/20 11:07: Glucometer 86 06/16/20 14:25: Hemoglobin 8.5#L, Hematocrit 27L 06/16/20 16:25: Glucometer 79 06/16/20 20:18: Glucometer 113H 06/16/20 20:50: Hemoglobin 8.4L, Hematocrit 26L 06/17/20 04:10: Hemoglobin 8.3L, Hematocrit 27L, White Blood Count 8.2, Red Blood Count 2.82L, Mean Corpuscular Volume 94, Mean Corpuscular Hemoglobin 29, Mean Corpuscular Hemoglobin Concent 31L, Red Cell Distribution Width 14.4, Platelet Count 225, Mean Platelet Volume 9.8, Immature Granulocyte % (Auto) 1, Neutrophils (%) (Auto) 76H, Lymphocytes (%) (Auto) 10L, Monocytes (%) (Auto) 8, Eosinophils (%) (Auto) 4, Basophils (%) (Auto) 1, Neutrophils # (Auto) 6.2, Lymphocytes # (Auto) 0.8L, Monocytes # (Auto) 0.7, Eosinophils # (Auto) 0.4H, Basophils # (Auto) 0.1, Immature Granulocyte # (Auto) 0.1, Sodium Level 141, Potassium Level 3.3L, Chloride Level 105, Carbon Dioxide Level 27, Anion Gap 9, Blood Urea Nitrogen 24H, Creatinine 1.41H, Estimat Glomerular Filtration Rate 36, BUN/Creatinine Ratio 17, Glucose Level 66L, Calcium Level 7.5L, Phosphorus Level 2.8, Magnesium Level 1.6 06/17/20 06:05: Glucometer 98 Microbiology 06/14/20 MRSA Screen - Final, Complete MRSA not isolated 06/11/20 Blood Culture - Final, Complete No growth 06/11/20 Urine Culture - Final, Complete Escherichia coli Assessment/Plan Assessment/Plan Assessment and Plan Acute GI bleed - 1.4L rectal blood/clots on 06/13 Acute exacerbation of diastolic CHF Syncopal episodes Paroxysmal Afib UTI Acute on chronic kidney failure - Cr 1.41 HTN - Difficult to control, home meds and continue to monitor Anemia - Hgb 8.3, 1U PRBC transfused yesterday Hypokalemia - K 3.3 L foot pain - s/p BP cuff placement COPD HLD T2DM Transfer to step-down Cardiology following, continue diuresis. DC pacemaker placed 06/15. Aspirin QOD, stop Plavix, hold Eliquis d/t bleeding risk. 1U PRBC today General Surgery consulted for GI bleed. colonoscopy 06/15: polyps/diverticulosis with no signs of active bleed V/Q scan today: normal perfusion Receiving Meropenem IV. Urine culture positive for E Coli K supplementation as needed Lovenox for DVT prophylaxis Continue to monitor VS/labs Clinical Quality Measures DVT/VTE Risk/Contraindication: Contraindications-Pharm: Other *list below* Other: gi bleed Supervisory-Addendum Brief Verification & Attestation Participated in pt care: history, MDM, physical Personally performed: exam, history, MDM, supervision of care Care discussed with: Medical Student Procedures: n/a Results interpretation: Verified all documentation I HAVE PERSONALLY INTERVIEWED AND EXAMINED THE PATIENT. I AGREE WITH MEDICAL STUDENT DOCUMENTATION IN THE CHART. SEE MY ASSESSMENT AND PLAN FOLLOWS: NEW ONSET ATRIAL FIBRILLATION ACUTE GASTROINTESTINAL BLEED ACUTE ON CHRONIC DIASTOLIC HEART FAILURE CHRONIC RECURRENT URINARY TRACT INFECTION HYPERTENSION ANEMIA ACUTE ON CHRONIC RENAL FAILURE DIABETES MELLITUS NEW ONSET ATRIAL FIBRILLATION - PT IS STATUS POST PACEMAKER PLACEMENT BY DR. PITTMAN -PT STABLE ON METOPROLOL, HEART RATE BETTER CONTROLLED AT THIS TIME. - PT IS AT HIGHER RISK OF EMBOLIC STROKE DUE TO NOT BEING ON ANTICOAGULATION AT THIS TIME. I HAVE DISCUSSED HER CASE WITH DR. PITTMAN AND DR. UGARTE WELL WITH THE PATIENT AND HER FAMILY (OVER THE PHONE) AND WE WILL INITIATE LOVENOX FOR DVT PROPHYLAXIS. SHE HAD EXTENSIVE DIVERTICULITIS ON HER SCOPE WHICH IS MOST LIKELY THE SOURCE OF HER GI BLEEDING. HOWEVER DUE TO HER EXTENSIVE GASTROINTESTINAL OUTPUT DURING HER BLEED (1.4 LITERS), THERE IS VERY REAL CONCERN OF STARTING HER ON ELIQUIS OR XARELTO AND LEADING TO ANOTHER EXTENSIVE BLEED WHEN SHE IS AN OUTPATIENT - SHE LIVES IN ASSISTED LIVING AND IF SHE WERE TO PASS OUT ON THE TOILET DUE TO A BLEED, THERE IS A VERY HIGH POSSIBILITY OF HER HAVING A NON- RECOVERABLE/SURVIVABLE EVENT. ROBERT AND HER DTR - HELGA- AND GRAND-DAUGHTER- CHANELLE WERE ALL IN AGREEMENT THAT THEY WOULD RATHER TAKE THE RISK OF A STROKE OVER THE RISK OF BLEEDING RIGHT NOW. THE PLAN WILL BE FOR ROBERT TO BE GIVEN LOVENOX IN THE HOSPITAL, [place]IN Q 48 HOURS, AND ATTEMPT TO GET HER TO HAVE ROUTINE BOWEL MOVEMENTS AND MONITOR FOR BLOODY OUTPUT. IF SHE DOES WELL, AND IS STABLE, AND HAS NO MORE BLEEDING THEN WE WILL CONSIDER XARELTO OR ELIQUIS AN OUTPATIENT. (XARELTO WOULD BE PREFERABLE TO THE PT AND FAMILY DUE TO COST OF MEDICATIONS). I HAVE THEREFORE INITIATED DVT PROPHYLAXIS DOSING ON LOVENOX, AND WILL MONITOR HER LABS CLOSELY WELL. SHE IS TO HAVE A UNIT OF BLOOD TODAY. ACUTE GASTROINTESTINAL BLEED - CONSULT PLACED TO DR. UGARTE, SERIAL H AND H'S ORDERED, MONITOR SYMPTOMS CLOSELY, COLONOSCOPE REVEALED NO ACUTE SOURCE OF BLEED, BIOPSIES TAKEN AND SHOWED HYPERPLASTIC POLYS X 2 AND A TUBULAR ADENOMA. - PLAVIX DISCONTINUED, ASPIRIN RESTARTED AT 81MG Q48HR. -DISCUSSED WITH PT - SHE IS NOT CERTAIN THAT SHE WANTS TO BE ON ANTICOAGULATION DESPITE RISK OF EMBOLIC STROKE ACUTE ON CHRONIC DIASTOLIC HEART FAILURE - PT ON LASIX, MONITOR SYMPTOMS CHRONIC RECURRENT URINARY TRACT INFECTION - PT ON MEROPENEM, CONTINUE CURRENT MANAGEMENT - EXTENDED OUT ANTIBIOTIC UNTIL 06/18/20 HYPERTENSION - PT ON HOME REGIMEN ANEMIA - STABLE AT THIS TIME, SHE HAS CHRONIC ANEMIA ACUTE ON CHRONIC RENAL FAILURE - MONITOR LABS, CONTINUE WITH LOW DOSE FLUIDS DIABETES MELLITUS - STABLE HYPOXIC EVENT OVERNIGHT WITH CHEST PAIN - VQ SCAN NEGATIVE. MARIELY GRIJALVA MED STUDENT Jun 17, 2020 08:09 HIRAL WOLF MD Jun 17, 2020 10:49
[2020-06-17] MEDS: eZETimibe 10 MG (ZETIA) TABLET PO SCH (08:17)
[2020-06-17] MEDS: LACTOBACILLUS ACIDOPHILUS (PROBIOTIC) CAPSULE PO SCH (08:17)
[2020-06-17] MEDS: VITAMIN D3 125 MCG (5,000 UNITS) CAPSULE PO SCH (08:17)
[2020-06-17] MEDS: ISOSORBIDE MONONITRATE 60 MG (IMDUR) TAB PO SCH (08:18)
[2020-06-17] MEDS: meTOprolol SUCCINATE 100 MG (TOPROL XL) TAB PO SCH (08:18)
[2020-06-17] MEDS: MAGNESIUM OXIDE (MAG-OX)400 MG TAB PO SCH (08:18)
[2020-06-17] MEDS: glipiZIDE 5 MG (GLUCOTROL) TAB PO SCH ×2 (08:18→16:06)
[2020-06-17] MEDS: PANTOPRAZOLE 40 MG (PROTONIX) TAB PO SCH (08:18)
[2020-06-17] MEDS: ARTIFICAL TEARS 0.4 ML UNIT DOSE (REFRESH PLUS) OU SCH ×3 (08:18→20:50)
--- NOTE | 2020-06-17 09:36 | Diagnostic Imaging Report ---
LUNG SCAN PERFUSION Technique: Perfusion only imaging of the lungs was performed after the intravenous administration of 5.5 mCi of technetium 99 MAA. 8 projections of the lungs were obtained. Indication: Dyspnea after pacemaker placement. Comparison: Portable chest from 06/17/2020 Findings: There is homogeneous radiotracer distribution throughout both lungs. There is some photopenia on the left lateral projection due to patient's left arm being at her side as recent pacemaker prohibited elevation of the arm. Impression: Normal perfusion exam without features of pulmonary embolus. Dictated by: Dictated on workstation # [id number]
[2020-06-17] MEDS: CLOPIDOGREL 75 MG (PLAVIX) TABLET PO SCH (09:48)
[2020-06-17] MEDS ORDERED: NS IV 500 ML 500 ML IV SCH (10:00)
[2020-06-17] MEDS: ASPIRIN 81 MG CHEW (CHILDREN'S ASA) PO SCH (10:06)
[2020-06-17] MEDS: ENOXAPARIN 40 MG/0.4 ML (LOVENOX) SYR SC SCH (10:55)
--- NOTE | 2020-06-17 11:08 | Physical Therapy Evaluation ---
PT Evaluation-General Medical Diagnosis Admission Date Jun 11, 2020 at 14:11 Medical Diagnosis: GI/bleed/anemia/UTI Onset Date: Jun 11, 2020 Therapy Diagnosis Therapy Diagnosis: debility/weakness Height/Weight Height (Feet): 5 Height (Inches): 3.00 Weight (Pounds): 190 Weight (Ounces): 8.3 Precautions Precautions/Isolations: Contact Isolation, Fall Prevention, Pressure Ulcer Referral Physician: Yony Reason for Referral: Evaluation/Treatment Medical History Pertinent Medical History: CAD, COPD (2L NC continuous), DM, Heart Failure, HTN Additional Medical History s/p pacemaker placement Current History EMS secondary to SOA and dizzy x 2 weeks Reviewed History: Yes Social History Home: Assisted Living Prior Prior Level of Function SCALE: Activities may be completed with or without assistive devices. 5-Cdixrkvuox-hukejaf completes the activity by him/herself with no assistance from a helper. 5-Set-up or Clean-up Assistance-helper sets up or cleans up; patient completes activity. [place] assists only prior to or following the activity. 4-Supervision or Touching Assistance-helper provides verbal cues and/or touching/steadying and/or contact guard assistance as patient completes activity. Assistance may be provided throughout the activity or intermittently. 3-Partial/Moderate Assistance-helper does LESS THAN HALF the effort. [place] lifts, holds or supports trunk or limbs, but provides less than half the effort. 2-Substantial/Maximal Assistance-helper does MORE THAN HALF the effort. [place] lifts or holds trunk or limbs and provides more than half the effort. 5-Clrtfzlvh-csarsm does ALL the effort. Patient does none of the effort to complete the activity. Or, the assistance of 2 or more helpers is required for the patient to complete the activity. If activity was not attempted, code reason: 7-Patient Refused. 9-Not Applicable-not attempted and the patient did not perform the activity before the current illness, exacerbation or injury. 10-Not Attempted due to Environmental Limitations-(lack of equipment, weather restraints, etc.). 88-Not Attempted due to Medical Conditions or Safety Concerns. Bed Mobility: 6 Transfers (B,C,W/C): 6 Gait: 6 Stairs: 9 PT Evaluation-Current Subjective Patient agrees to PT. Objective Patient Orientation: Person, Time, Situation Attachments: Central Line, Oxygen, [place] Catheter ROM/Strength ROM Lower Extremities bilateral LE WFL Strength Lower Extremities 4-/5 grossly bilateral LE Integumentary/Posture Bowel Incontinence: No Bladder Incontinence: [place] Cath Posture WFL Neuromuscular (Tone, Coordination, Reflexes) grossly intact Sensory Vision: Functional Hearing: Impaired Transfers Roll Left to Right (QC): 5 Sit to Lying (QC): 4 Lying to Sitting/Side of Bed(Q: 4 Sit to Stand (QC): 4 Chair/Ydi-pw-Arzns Xfer(QC): 4 SBA to CGA for safety Gait Does the Patient Walk?: Yes Mode of Locomotion: Walk Anticipated Mode of Locomotion: Walk Walk 10 feet (QC): 4 Walk 50 ft with 2 Turns(QC): 4 Walk 150 ft (QC): 88 Distance: 50' Gait Assistive Device: FWW Comments/Gait Description no deviation/safe and functional Wheelchair Training Does the Pt Use a Wheelchair?: No Balance Sitting Static: Normal Sitting Dynamic: Normal Standing Static: Normal Standing Dynamic: Normal Assessment/Needs 84 y.o. female, will be seen short term by skilled PT to address functional strength and mobility to ensure safe return to [place] at maximum LOF. Rehab Potential: Fair PT Theoretical Physicist Goals Theoretical Physicist Goals PT Theoretical Physicist Goals Time Frame: Jun 25, 2020 Roll Left & Right (QC): 6 Sit to Lying (QC): 6 Lying-Sitting on Side/Bed(QC): 6 Sit to Stand (QC): 6 Chair/Ute-pu-Bmyro Xfer(QC): 6 Toilet Transfer (QC): 6 Does the Patient Walk: Yes Walk 10 feet (QC): 6 Walk 50ft with 2 Turns (QC): 6 Walk 150 ft (QC): 6 PT Plan Problem List Problem List: Activity Tolerance Treatment/Plan Treatment Plan: Continue Plan of Care Treatment Plan: Bed Mobility, Education, Functional Activity [place], Functional Strength, Gait, Safety, Therapeutic Exercise, Transfers Treatment Duration: Jun 25, 2020 Frequency: 6 times per week Estimated Hrs Per Day: .25 hour per day Patient and/or Family Agrees t: Yes Time/GCodes Time In: 1040 Time Out: 1059 Total Billed Treatment Time: 19 Total Billed Treatment 1 visit EVMod 19 min MARICARMEN EPSTEIN PT Jun 17, 2020 11:08
[2020-06-17] MEDS: diphenhydrAMINE 50 MG/ML INJ (BENADRYL) IVP PRN (12:24)
--- NOTE | 2020-06-17 16:06 | Progress Note - Cardiology ---
Cardiology SOAP Progress Note Subjective: Gen malaise and weakness Shortness of breath with activity Intermittent chest discomfort as before No n/v/d No focal weakness Objective: I&O/Vital Signs 06/17/20 06/17/20 06/17/20 06/17/20 04:15 04:15 05:00 06:00 Temp 36.7 Pulse 60 60 Resp 18 14 B/P (MAP) 120/42 (68) 144/52 (82) Pulse Ox 97 97 97 O2 Delivery Nasal Cannula Nasal Cannula Nasal Cannula Nasal Cannula O2 Flow Rate 2.00 2.00 2.00 2.00 06/17/20 06/17/20 06/17/20 06/17/20 07:00 07:00 07:38 08:00 Pulse 60 60 80 Resp 16 14 B/P (MAP) 139/51 (80) 142/54 (83) Pulse Ox 96 96 96 O2 Delivery Nasal Cannula Nasal Cannula Nasal Cannula O2 Flow Rate 2.00 2.00 2.00 06/17/20 06/17/20 06/17/20 06/17/20 08:00 08:16 09:00 10:00 Temp 36.1 Pulse 60 60 Resp 14 19 B/P (MAP) Pulse Ox 96 99 O2 Delivery Nasal Cannula Nasal Cannula Nasal Cannula O2 Flow Rate 2.00 2.00 2.00 06/17/20 06/17/20 06/17/20 06/17/20 11:46 12:00 12:09 12:27 Temp 36.4 36.8 36.7 Pulse 60 60 60 Resp 14 21 B/P (MAP) 157/67 (97) 153/67 164/65 Pulse Ox 98 97 98 O2 Delivery Nasal Cannula Nasal Cannula Nasal Cannula O2 Flow Rate 2.00 2.00 2.00 06/17/20 06/17/20 06/17/20 06/17/20 12:39 12:41 13:00 14:00 Pulse 60 60 64 Resp 12 20 B/P (MAP) 159/61 (93) 136/73 (94) Pulse Ox 98 98 O2 Delivery Nasal Cannula Nasal Cannula Nasal Cannula O2 Flow Rate 2.00 2.00 2.00 06/17/20 06/17/20 06/17/20 06/17/20 14:40 15:00 15:51 15:59 Temp 36.4 36.6 Pulse 74 90 Resp 18 26 B/P (MAP) 136/73 141/71 (94) Pulse Ox 91 98 O2 Delivery Nasal Cannula Nasal Cannula Nasal Cannula O2 Flow Rate 2.00 2.00 2.00 06/17/20 00:00 Intake Total 2889 ml Output Total 1400 ml Balance 1489 ml Weight (Pounds): 190 Weight (Ounces): 8.3 Weight (Calculated Kilograms): 86.243724 Device Insertion Site: without hematoma Bruising: mild bruising Constitutional: AAO x 3, well-developed, well-nourished Respiratory: No accessory muscle use; other (good bilateral air entry) Cardiovascular: regular rate-rhythm, S1 and S2, systolic murmur (soft DEVAN at card base) Gastrointestional: No tender; soft; No guarding, No rebound; audible bowel s ounds Extremities: No clubbing, No cyanosis, No significant edema Neurologic/Psychiatric: oriented x 3, other (moves all limbs equally) Skin: warm/dry; No cool; pallor; No rash on exposed areas, No ulcerations on exposed areas Results/Procedures: Labs Laboratory Tests 06/16/20 16:25: Glucometer 79 06/16/20 20:18: Glucometer 113H 06/16/20 20:50: Hemoglobin 8.4L, Hematocrit 26L 06/17/20 04:10: Hemoglobin 8.3L, Hematocrit 27L, White Blood Count 8.2, Red Blood Count 2.82L, Mean Corpuscular Volume 94, Mean Corpuscular Hemoglobin 29, Mean Corpuscular Hemoglobin Concent 31L, Red Cell Distribution Width 14.4, Platelet Count 225, Mean Platelet Volume 9.8, Immature Granulocyte % (Auto) 1, Neutrophils (%) (Auto) 76H, Lymphocytes (%) (Auto) 10L, Monocytes (%) (Auto) 8, Eosinophils (%) (Auto) 4, Basophils (%) (Auto) 1, Neutrophils # (Auto) 6.2, Lymphocytes # (Auto) 0.8L, Monocytes # (Auto) 0.7, Eosinophils # (Auto) 0.4H, Basophils # (Auto) 0.1, Immature Granulocyte # (Auto) 0.1, Sodium Level 141, Potassium Level 3.3L, Chloride Level 105, Carbon Dioxide Level 27, Anion Gap 9, Blood Urea Nitrogen 24H, Creatinine 1.41H, Estimat Glomerular Filtration Rate 36, BUN/Creatinine Ratio 17, Glucose Level 66L, Calcium Level 7.5L, Phosphorus Level 2.8, Magnesium Level 1.6 06/17/20 06:05: Glucometer 98 06/17/20 10:53: Glucometer 87 06/17/20 12:21: Lab Scanned Report Transfusion Reaction Form 06/17/20 15:50: Glucometer 132H Microbiology 06/14/20 MRSA Screen - Final, Complete MRSA not isolated 06/11/20 Blood Culture - Final, Complete No growth 06/11/20 Urine Culture - Final, Complete Escherichia coli Laboratory Tests 06/16/20 06:40 06/16/20 14:25 06/16/20 20:50 06/17/20 04:10 A/P: Assessment: SSS with PAF and tachy-cornelius syndrome - Dual chamber pacemaker implanted on 06/14/20 to control bradycardia, functioning normally on interrogation of 06/15/20 - Beta-blockers for tachycardia - Oral anticoag held because of hematochezia that the primary care team is managing Chronic HFpEF, currently clinically compensated - Echo Mar 2020: LVEF 55-65 percent, grade 2 diastolic dysfunction, left atrial dilatation, mitral valve sclerosis, moderate aortic stenosis, pulmonary hypertension with PA pressure 45-50 mmHg Acute lower GI bleed and anemia during this hospitalization of May 2020, being managed pcp - OAC on hold due the above - Colonoscopy with hot biopsy polypectomy x3 and placement of Resolution clip (for continuing bleeding after polypectomy) in the cecum - Marked blood loss anemia requiring blood transfusions Acute on chronic renal insufficiency, 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 Intolerant to multiple medications, history of orthostatic dizziness and hypotension Chronic chest pain syndrome, continuing during this hospitalization - cardiac catheterization done in August 2019 showed diffuse moderate coronary artery disease involving all her coronary system, nonobstructive disease - some chest discomfort documented to be associated with episode of PAF Diabetes mellitus, followed and managed by primary care physician History of recurrent UTI with multidrug resistance, managed by primary care team Degenerative joint disease History of intolerance to statin with intolerant to angiotensin receptor neeru H/o PAD but no significant claudication at this time Mild bilateral carotid stenosis Chronic pedal edema with history of chronic venous insufficiency History of urinary incontinence Plan: * Very complex management due to multiple comorbidities and symptoms * I had a detailed discussion with Dr Bhakta today who feels that pt is not safe for oral anticoag at this time * Given only mild to mod CAD and given GI bleed, we do not feel DAPT is needed. Accordingly, we are discontinuing Plavix and changing ASA to 81 qod * We recommend w/u for PE, Dr Bhakta is pursuing that * We recommend resumption of oral anticoag as soon as safe from Medical and Surgical standpoint * Additional blood transfusion * Monitor labs * She remains quite ill. Continue to monitor closely JENNIFER PITTMAN MD FACP FACC CCDS Jun 17, 2020 16:06
[2020-06-17] MEDS: amLODIPine 10 MG (NORVASC) TAB PO SCH (20:49)
[2020-06-17] MEDS: FENOFIBRATE 134 MG (LOFIBRA) CAPSULE PO SCH (20:49)
[2020-06-17] MEDS: MELATONIN 3 MG TABLET PO SCH (20:50)
[2020-06-17] MEDS: polyethylene glycoL POWDER 17 GM (MIRALAX) PACK PO SCH (20:51)
[2020-06-18] VITALS (13 sets, daily range): BP systolic 127–196; BP diastolic 52–85
[2020-06-18] MEDS: MEROPENEM 500 MG in WATER (STERILE) FOR INJECTION 10 ML IV SCH (00:01)
[2020-06-18 04:06] LABS: BASOPHILS % (AUTO) 1 % (0-10); EOSINOPHILS # (AUTO) 0.4 10^3/uL (0.0-0.3); EOSINOPHILS % (AUTO) 5 % (0-10); HEMATOCRIT 29 % (35-52); HEMOGLOBIN 9.2 g/dL (11.5-16.0); LYMPHOCYTES # (AUTO) 0.7 10^3/uL (1.0-4.0); LYMPHOCYTES % (AUTO) 9 % (12-44); MEAN CORPUSCULAR HEMOGLOBIN 30 pg (25-34); MEAN CORPUSCULAR HGB CONC 32 g/dL (32-36); MEAN CORPUSCULAR VOLUME 94 fL (80-99); MEAN PLATELET VOLUME 9.6 fL (9.0-12.2); MONOCYTES # (AUTO) 0.6 10^3/uL (0.0-1.0); MONOCYTES % (AUTO) 8 % (0-12); NEUTROPHILS # (AUTO) 6.1 10^3/uL (1.8-7.8); NEUTROPHILS % (AUTO) 77 % (42-75); PLATELET COUNT 253 10^3/uL (130-400); WHITE BLOOD COUNT 7.9 10^3/uL (4.3-11.0)
[2020-06-18 04:27] LABS: POTASSIUM 3.6 MMOL/L (3.6-5.0)
[2020-06-18 04:28] LABS: CALCIUM 8.1 MG/DL (8.5-10.1)
[2020-06-18 04:33] LABS: CREATININE SERUM 1.1 MG/DL (0.60-1.30); PHOSPHORUS 2.9 MG/DL (2.3-4.7)
[2020-06-18 04:35] LABS: MAGNESIUM 1.8 MG/DL (1.6-2.4)
[2020-06-18] MEDS: SUCRALFATE 1 GM (CARAFATE) TAB PO SCH ×4 (06:57→21:15)
[2020-06-18] MEDS: LEVOTHYROXINE 125 MCG (LEVOTHROID) TABLET PO SCH (06:57)
[2020-06-18] MEDS: CATHETER FLUSH 10 ML SYR IV SCH ×3 (06:57→23:07)
[2020-06-18] MEDS: inSUlin ASPART (NovoLOG) 1 UNIT/0.01 ML (CHARGE PER UNIT) SQ SCH ×4 (06:57→21:20)
[2020-06-18] MEDS: glipiZIDE 5 MG (GLUCOTROL) TAB PO SCH ×2 (06:57→16:56)
[2020-06-18] MEDS: FUROSEMIDE 40 MG (LASIX) TAB PO SCH ×2 (06:57→16:56)
[2020-06-18] MEDS: NS IV 1000 ML 1,000 ML IV SCH ×3 (06:59→22:16)
--- NOTE | 2020-06-18 07:52 | Progress Note ---
Subjective Subjective Date Seen by Provider: Jun 18, 2020 Time Seen by Provider: 07:25 Pt seen and examined. She was awake, laying in bed, NAD. She denies current SOB, chest pain, N/V, lightheadedness, leg pain. No episodes of chest pain overnight. No acute events overnight. Pt O2sat was dropping to 70's/80's on exam, was instructed to take some deep breaths which brought it back to 90's; states she feels a rattling sensation in her R lower chest. Review of Systems General: No Chills, No Night Sweats; Fatigue HEENT: No Head Aches, No Visual Changes Pulmonary: Dyspnea; No Cough Cardiovascular: No: Chest Pain, Palpitations, Lt Headedness Gastrointestinal: Constipation (last BM 3 days ago); No: Nausea, Vomiting, Abdominal Pain, Hematochezia Genitourinary: No Dysuria, No Frequency Musculoskeletal: No: neck pain, back pain, leg pain Neurological: No: Weakness, Numbness All Other Systems Reviewed All Other Systems Reviewed: Yes (Negative excepted noted.) Objective Exam Vital Signs Vital Signs - First Documented 06/12/20 00:58 Temp 36.3 Pulse 79 Resp 20 B/P (MAP) 150/72 (98) Pulse Ox 93 O2 Delivery Nasal Cannula O2 Flow Rate 2.00 Capillary Refill : Greater Than 3 Seconds General Appearance: No Apparent Distress, Chronically ill, Obese Eyes: Bilateral Eye Normal Inspection, Bilateral Eye PERRL, Bilateral Eye EOMI HEENT: PERRL/EOMI, Pharynx Normal, Moist Mucous Membranes, Pale Conjunctivae (L), Pale Conjunctivae (R) Neck: Normal Inspection, Non Tender Respiratory: Chest Non Tender, No Accessory Muscle Use, No Respiratory Distress, Decreased Breath Sounds, Wheezing (bilateral) Cardiovascular: Regular Rate, Rhythm, Normal Peripheral Pulses, Systolic Murmur, Other (paced at 60) Gastrointestinal: Normal Bowel Sounds, Non Tender, Soft Rectal: Deferred Back: Normal Inspection, No CVA Tenderness Extremity: Normal Inspection, Non Tender, No Calf Tenderness; No Calf Tenderness; Pedal Edema, Other (moderate nonpitting BLE L>R) Neurologic/Psychiatric: Alert, Oriented x3, Normal Mood/Affect Skin: Warm/Dry, Pallor Lymphatic: No Adenopathy Results Lab Laboratory Tests 06/17/20 10:53: Glucometer 87 06/17/20 12:21: Lab Scanned Report Transfusion Reaction Form 06/17/20 15:50: Glucometer 132H 06/17/20 20:09: Glucometer 88 06/18/20 03:45: White Blood Count 7.9, Red Blood Count 3.10L, Hemoglobin 9.2L, Hematocrit 29L, Mean Corpuscular Volume 94, Mean Corpuscular Hemoglobin 30, Mean Corpuscular Hemoglobin Concent 32, Red Cell Distribution Width 14.8H, Platelet Count 253, Mean Platelet Volume 9.6, Immature Granulocyte % (Auto) 1, Neutrophils (%) (Auto) 77H, Lymphocytes (%) (Auto) 9L, Monocytes (%) (Auto) 8, Eosinophils (%) (Auto) 5, Basophils (%) (Auto) 1, Neutrophils # (Auto) 6.1, Lymphocytes # (Auto) 0.7L, Monocytes # (Auto) 0.6, Eosinophils # (Auto) 0.4H, Basophils # (Auto) 0.0, Immature Granulocyte # (Auto) 0.1, Sodium Level 142, Potassium Level 3.6, Chloride Level 104, Carbon Dioxide Level 28, Anion Gap 10, Blood Urea Nitrogen 24H, Creatinine 1.10, Estimat Glomerular Filtration Rate 48, BUN/Creatinine Ratio 22, Glucose Level 80, Calcium Level 8.1L, Phosphorus Level 2.9, Magnesium Level 1.8 Microbiology 06/14/20 MRSA Screen - Final, Complete MRSA not isolated 06/11/20 Blood Culture - Final, Complete No growth 06/11/20 Urine Culture - Final, Complete Escherichia coli Assessment/Plan Assessment/Plan Assessment and Plan Acute GI bleed - 1.4L rectal blood/clots on 06/13 Acute exacerbation of diastolic CHF Syncopal episodes Paroxysmal Afib Chronic chest pain syndrome UTI Acute on chronic kidney failure - Cr 1.1 HTN - Difficult to control, home meds and continue to monitor Anemia - Hgb 9.2, 1U PRBC transfused yesterday, received 2U total Hypokalemia - K 3.6 L foot pain - s/p BP cuff placement COPD HLD T2DM Suppository if no bm today Cardiology following, continue diuresis. DC pacemaker placed 06/15. Aspirin QOD, stop Plavix, hold Eliquis d/t bleeding risk. General Surgery consulted for GI bleed. colonoscopy 06/15: polyps/diverticulosis with no signs of active bleed V/Q scan 06/17: normal perfusion Receiving Meropenem IV. Urine culture positive for E Coli K supplementation as needed Lovenox for DVT prophylaxis Transfer to [facility] Continue to monitor VS/labs Clinical Quality Measures DVT/VTE Risk/Contraindication: Contraindications-Pharm: Other *list below* Other: gi bleed Supervisory-Addendum Brief Verification & Attestation Participated in pt care: history, MDM, physical Personally performed: exam, history, MDM, supervision of care Care discussed with: Medical Student Procedures: n/a Results interpretation: Verified all documentation I HAVE PERSONALLY INTERVIEWED AND EXAMINED THE PATIENT. I AGREE WITH MEDICAL STUDENT DOCUMENTATION IN THE CHART. SEE MY ASSESSMENT AND PLAN FOLLOWS: NEW ONSET ATRIAL FIBRILLATION ACUTE GASTROINTESTINAL BLEED ACUTE ON CHRONIC DIASTOLIC HEART FAILURE CHRONIC RECURRENT URINARY TRACT INFECTION HYPERTENSION ANEMIA ACUTE ON CHRONIC RENAL FAILURE DIABETES MELLITUS NEW ONSET ATRIAL FIBRILLATION - PT IS STATUS POST PACEMAKER PLACEMENT BY DR. PITTMAN -PT STABLE ON METOPROLOL, HEART RATE BETTER CONTROLLED AT THIS TIME. - PT IS AT HIGHER RISK OF EMBOLIC STROKE DUE TO NOT BEING ON ANTICOAGULATION AT THIS TIME. I HAVE DISCUSSED HER CASE WITH DR. PITTMAN AND DR. UGARTE WELL WITH THE PATIENT AND HER FAMILY (OVER THE PHONE) AND WE WILL INITIATE LOVENOX FOR DVT PROPHYLAXIS. SHE HAD EXTENSIVE DIVERTICULITIS ON HER SCOPE WHICH IS MOST LIKELY THE SOURCE OF HER GI BLEEDING. HOWEVER DUE TO HER EXTENSIVE GASTROINTESTINAL OUTPUT DURING HER BLEED (1.4 LITERS), THERE IS VERY REAL CONCERN OF STARTING HER ON ELIQUIS OR XARELTO AND LEADING TO ANOTHER EXTENSIVE BLEED WHEN SHE IS AN OUTPATIENT - SHE LIVES IN ASSISTED LIVING AND IF SHE WERE TO PASS OUT ON THE TOILET DUE TO A BLEED, THERE IS A VERY HIGH POSSIBILITY OF HER HAVING A NON- RECOVERABLE/SURVIVABLE EVENT. ROBERT AND HER DTR - HELGA- AND GRAND-DAUGHTER- CHANELLE WERE ALL IN AGREEMENT THAT THEY WOULD RATHER TAKE THE RISK OF A STROKE OVER THE RISK OF BLEEDING RIGHT NOW. THE PLAN WILL BE FOR ROBERT TO BE GIVEN LOVENOX IN THE HOSPITAL, [place]IN Q 48 HOURS, AND ATTEMPT TO GET HER TO HAVE ROUTINE BOWEL MOVEMENTS AND MONITOR FOR BLOODY OUTPUT. IF SHE DOES WELL, AND IS STABLE, AND HAS NO MORE BLEEDING THEN WE WILL CONSIDER XARELTO OR ELIQUIS AN OUTPATIENT. (XARELTO WOULD BE PREFERABLE TO THE PT AND FAMILY DUE TO COST OF MEDICATIONS). I HAVE THEREFORE INITIATED DVT PROPHYLAXIS DOSING ON LOVENOX, AND WILL MONITOR HER LABS CLOSELY WELL. ACUTE GASTROINTESTINAL BLEED - CONSULT PLACED TO DR. UGARTE, SERIAL H AND H'S ORDERED, MONITOR SYMPTOMS CLOSELY, COLONOSCOPE REVEALED NO ACUTE SOURCE OF BLEED, BIOPSIES TAKEN AND SHOWED HYPERPLASTIC POLYS X 2 AND A TUBULAR ADENOMA. - PLAVIX DISCONTINUED, ASPIRIN RESTARTED AT 81MG Q48HR. -DISCUSSED WITH PT - SHE IS NOT CERTAIN THAT SHE WANTS TO BE ON ANTICOAGULATION DESPITE RISK OF EMBOLIC STROKE ACUTE ON CHRONIC DIASTOLIC HEART FAILURE - PT ON LASIX, MONITOR SYMPTOMS CHRONIC RECURRENT URINARY TRACT INFECTION - PT ON MEROPENEM, - LAST DOSE TODAY. HYPERTENSION - PT ON HOME REGIMEN ANEMIA - STABLE AT THIS TIME, SHE HAS CHRONIC ANEMIA ACUTE ON CHRONIC RENAL FAILURE - MONITOR LABS, CONTINUE WITH LOW DOSE FLUIDS DIABETES MELLITUS - STABLE HYPOXIC EVENT ON 06/16/2020 WITH CHEST PAIN - VQ SCAN NEGATIVE. MARIELY GRIJALVA MED STUDENT Jun 18, 2020 07:52 HIRAL WOLF MD Jun 18, 2020 10:51
[2020-06-18] MEDS: meTOprolol SUCCINATE 100 MG (TOPROL XL) TAB PO SCH (08:30)
[2020-06-18] MEDS: MAGNESIUM OXIDE (MAG-OX)400 MG TAB PO SCH (08:30)
[2020-06-18] MEDS: ARTIFICAL TEARS 0.4 ML UNIT DOSE (REFRESH PLUS) OU SCH ×3 (08:30→21:15)
[2020-06-18] MEDS: LACTOBACILLUS ACIDOPHILUS (PROBIOTIC) CAPSULE PO SCH (08:30)
[2020-06-18] MEDS: VITAMIN D3 125 MCG (5,000 UNITS) CAPSULE PO SCH (08:30)
[2020-06-18] MEDS: ISOSORBIDE MONONITRATE 60 MG (IMDUR) TAB PO SCH (08:30)
[2020-06-18] MEDS: PANTOPRAZOLE 40 MG (PROTONIX) TAB PO SCH (08:30)
[2020-06-18] MEDS: eZETimibe 10 MG (ZETIA) TABLET PO SCH (08:30)
[2020-06-18] MEDS: ENOXAPARIN 40 MG/0.4 ML (LOVENOX) SYR SC SCH (08:32)
--- NOTE | 2020-06-18 08:53 | Physical Therapy Daily Note ---
PT Daily Note-Current Subjective Patient agrees to PT. No c/o. Mental Status Patient Orientation: Normal For Age Attachments: Oxygen, IV Transfers SCALE: Activities may be completed with or without assistive devices. 5-Jcsegnhfdg-tpvndlm completes the activity by him/herself with no assistance from a helper. 5-Set-up or Clean-up Assistance-helper sets up or cleans up; patient completes activity. [place] assists only prior to or following the activity. 4-Supervision or Touching Assistance-helper provides verbal cues and/or touching/steadying and/or contact guard assistance as patient completes activity. Assistance may be provided throughout the activity or intermittently. 3-Partial/Moderate Assistance-helper does LESS THAN HALF the effort. [place] lift s, holds or supports trunk or limbs, but provides less than half the effort. 2-Substantial/Maximal Assistance-helper does MORE THAN HALF the effort. [place] lifts or holds trunk or limbs and provides more than half the effort. 4-Mdaqmbrih-lliqlf does ALL the effort. Patient does none of the effort to complete the activity. Or, the assistance of 2 or more helpers is required for the patient to complete the activity. If activity was not attempted, code reason: 7-Patient Refused. 9-Not Applicable-not attempted and the patient did not perform the activity before the current illness, exacerbation or injury. 10-Not Attempted due to Environmental Limitations-(lack of equipment, weather restraints, etc.). 88-Not Attempted due to Medical Conditions or Safety Concerns. Roll Left & Right (QC): 5 Lying to Sitting/Side of Bed(Q: 5 Sit to Stand (QC): 5 Chair/Gre-sz-Inruf Xfer(QC): 5 SBA for safety Gait Training Does the Patient Walk?: Yes Distance: 10' x 3 Walk 10 feet (QC): 5 Gait Assistive Device: FWW Exercises Seated Therapy Exercises: Ankle pumps, Long arc quads, Hip flexion Seated Reps: 15 (2 sets) Assessment Patient tolerated treatment well and is up in recliner with needs met. SAO2 remained >90% with activity on 2L. PT Sugar Cane Planter Goals Usp Goals PT Usp Goals Time Frame: Jun 25, 2020 Roll Left & Right (QC): 6 Sit to Lying (QC): 6 Lying-Sitting on Side/Bed(QC): 6 Sit to Stand (QC): 6 Chair/Vbg-yo-Nvkzb Xfer(QC): 6 Toilet Transfer (QC): 6 Does the Patient Walk: Yes Walk 10 feet (QC): 6 Walk 50ft with 2 Turns (QC): 6 Walk 150 ft (QC): 6 PT Plan Treatment/Plan Treatment Plan: Continue Plan of Care Treatment Plan: Bed Mobility, Education, Functional Activity Neel[place], Functional Strength, Gait, Safety, Therapeutic Exercise, Transfers Treatment Duration: Jun 25, 2020 Frequency: 6 times per week Estimated Hrs Per Day: .25 hour per day Patient and/or Family Agrees t: Yes Time/GCodes Time In: 730 Time Out: 745 Total Billed Treatment Time: 15 Total Billed Treatment 1 visit EX 15 min MARICARMEN EPSTEIN PT Jun 18, 2020 08:53
--- NOTE | 2020-06-18 10:23 | Progress Note ---
Subjective Date Seen by a Provider: Jun 18, 2020 Time Seen by a Provider: 10:00 Subjective/Events-last exam doing well. no BM for past several days. Hb stable. likely previous diverticular bleed. Objective Exam Vital Signs Date Time Temp Pulse Resp B/P (MAP) Pulse Ox O2 Delivery O2 Flow Rate FiO2 06/18/20 08:36 Nasal Cannula 2.00 06/18/20 08:00 60 11 157/65 (95) 98 Nasal Cannula 2.00 06/18/20 07:13 36.7 06/18/20 07:00 66 06/18/20 06:00 60 24 141/68 (92) 97 Nasal Cannula 2.00 06/18/20 05:00 60 17 154/53 (86) 95 Nasal Cannula 2.00 06/18/20 04:29 36.4 06/18/20 04:00 60 21 187/65 (105) 98 Nasal Cannula 2.00 06/18/20 03:00 60 20 143/52 (82) 98 Nasal Cannula 2.00 06/18/20 02:00 60 20 144/53 (83) 98 Nasal Cannula 2.00 06/18/20 01:03 74 21 152/59 (90) 96 Nasal Cannula 2.00 06/18/20 00:22 60 06/18/20 00:08 Nasal Cannula 2.00 06/18/20 00:02 64 23 150/64 (92) 95 Nasal Cannula 1.00 06/17/20 23:00 60 23 153/52 (85) 95 Nasal Cannula 2.00 06/17/20 22:00 60 21 150/55 (86) 96 Nasal Cannula 2.00 06/17/20 21:15 80 24 169/73 (105) 97 Nasal Cannula 2.00 06/17/20 21:00 80 16 169/73 (105) 99 Nasal Cannula 2.00 06/17/20 20:20 Nasal Cannula 2.00 06/17/20 20:00 71 20 173/53 (93) 96 Nasal Cannula 2.00 06/17/20 19:08 36.1 06/17/20 19:00 60 20 182/86 (118) 96 Nasal Cannula 2.00 06/17/20 19:00 60 06/17/20 19:00 60 18 182/69 (106) 98 Nasal Cannula 2.00 06/17/20 17:00 60 21 128/45 (72) 97 Nasal Cannula 2.00 06/17/20 16:00 60 20 158/57 (90) 96 Nasal Cannula 2.00 06/17/20 15:59 Nasal Cannula 2.00 06/17/20 15:51 36.6 06/17/20 15:00 90 26 141/71 (94) 98 Nasal Cannula 2.00 06/17/20 14:40 36.4 74 18 136/73 91 Nasal Cannula 2.00 06/17/20 14:00 64 20 136/73 (94) 98 Nasal Cannula 2.00 06/17/20 13:00 60 12 159/61 (93) 98 Nasal Cannula 2.00 06/17/20 12:41 Nasal Cannula 2.00 06/17/20 12:39 60 06/17/20 12:27 36.7 60 21 164/65 98 Nasal Cannula 2.00 06/17/20 12:09 36.8 60 20 153/67 97 Nasal Cannula 2.00 06/17/20 12:00 60 14 157/67 (97) 98 Nasal Cannula 2.00 06/17/20 11:46 36.4 I & O 06/18/20 06:59 Intake Total 3725 ml Output Total 2600 ml Balance 1125 ml Capillary Refill : Greater Than 3 Seconds General Appearance: No Apparent Distress HEENT: PERRL/EOMI Neck: Full Range of Motion Respiratory: Chest Non Tender, Lungs Clear Cardiovascular: Regular Rate, Rhythm Gastrointestinal: normal bowel sounds, non tender, soft Extremity: Normal Capillary Refill Neurologic/Psychiatric: Alert, Oriented x3 Skin: Normal Color Lymphatic: No Adenopathy Results Lab Laboratory Tests 06/17/20 10:53: Glucometer 87 06/17/20 12:21: Lab Scanned Report Transfusion Reaction Form 06/17/20 15:50: Glucometer 132H 06/17/20 20:09: Glucometer 88 06/18/20 03:45: White Blood Count 7.9, Red Blood Count 3.10L, Hemoglobin 9.2L, Hematocrit 29L, Mean Corpuscular Volume 94, Mean Corpuscular Hemoglobin 30, Mean Corpuscular Hemoglobin Concent 32, Red Cell Distribution Width 14.8H, Platelet Count 253, Mean Platelet Volume 9.6, Immature Granulocyte % (Auto) 1, Neutrophils (%) ( Auto) 77H, Lymphocytes (%) (Auto) 9L, Monocytes (%) (Auto) 8, Eosinophils (%) (Auto) 5, Basophils (%) (Auto) 1, Neutrophils # (Auto) 6.1, Lymphocytes # (Auto) 0.7L, Monocytes # (Auto) 0.6, Eosinophils # (Auto) 0.4H, Basophils # (Auto) 0.0, Immature Granulocyte # (Auto) 0.1, Sodium Level 142, Potassium Level 3.6, Chloride Level 104, Carbon Dioxide Level 28, Anion Gap 10, Blood Urea Nitrogen 24H, Creatinine 1.10, Estimat Glomerular Filtration Rate 48, BUN/Creatinine Ratio 22, Glucose Level 80, Calcium Level 8.1L, Phosphorus Level 2.9, Magnesium Level 1.8 Microbiology 06/14/20 MRSA Screen - Final, Complete MRSA not isolated 06/11/20 Blood Culture - Final, Complete No growth 06/11/20 Urine Culture - Final, Complete Escherichia coli Assessment/Plan Assessment/Plan Assess & Plan/Chief Complaint lower GI bleed. no signs clinical bleed and Hb stable. now has constipation and laxative added. Clinical Quality Measures DVT/VTE Risk/Contraindication: Contraindications-Pharm: Other *list below* Other: gi bleed KRISTINA SPARROW MD Jun 18, 2020 10:23
--- NOTE | 2020-06-18 13:56 | Progress Note - Cardiology ---
Cardiology SOAP Progress Note Subjective: Gen malaise No cp today Shortness of breath with mild activity No palp or syncope No n/v/d Objective: I&O/Vital Signs 06/18/20 06/18/20 06/18/20 06/18/20 02:00 03:00 04:00 04:29 Temp 36.4 Pulse 60 60 60 Resp B/P (MAP) 144/53 (83) 143/52 (82) 187/65 (105) Pulse Ox 98 98 98 O2 Delivery Nasal Cannula Nasal Cannula Nasal Cannula O2 Flow Rate 2.00 2.00 2.00 06/18/20 06/18/20 06/18/20 06/18/20 05:00 06:00 07:00 07:13 Temp 36.7 Pulse 60 60 66 Resp 17 24 B/P (MAP) 154/53 (86) 141/68 (92) Pulse Ox 95 97 O2 Delivery Nasal Cannula Nasal Cannula O2 Flow Rate 2.00 2.00 06/18/20 06/18/20 06/18/20 06/18/20 08:00 08:36 11:20 12:39 Temp 36.7 Pulse 60 63 60 Resp 11 13 B/P (MAP) 157/65 (95) 127/58 (81) Pulse Ox 98 94 O2 Delivery Nasal Cannula Nasal Cannula Nasal Cannula O2 Flow Rate 2.00 2.00 1.00 06/18/20 00:00 Intake Total 2515 ml Output Total 1125 ml Balance 1390 ml Weight (Pounds): 190 Weight (Ounces): 8.3 Weight (Calculated Kilograms): 86.727832 Device Insertion Site: without hematoma Bruising: mild bruising Constitutional: AAO x 3, well-developed, well-nourished Respiratory: No accessory muscle use; other (good bilateral air entry) Cardiovascular: regular rate-rhythm, S1 and S2, systolic murmur (soft DEVAN at card base) Gastrointestional: No tender; soft; No guarding, No rebound; audible bowel sounds Extremities: No clubbing, No cyanosis, No significant edema Neurologic/Psychiatric: oriented x 3, other (moves all limbs equally) Skin: warm/dry; No cool; pallor; No rash on exposed areas, No ulcerations on exposed areas Results/Procedures: Labs Laboratory Tests 06/17/20 15:50: Glucometer 132H 06/17/20 20:09: Glucometer 88 06/18/20 03:45: White Blood Count 7.9, Red Blood Count 3.10L, Hemoglobin 9.2L, Hematocrit 29L, Mean Corpuscular Volume 94, Mean Corpuscular Hemoglobin 30, Mean Corpuscular Hemoglobin Concent 32, Red Cell Distribution Width 14.8H, Platelet Count 253, Mean Platelet Volume 9.6, Immature Granulocyte % (Auto) 1, Neutrophils (%) (Auto) 77H, Lymphocytes (%) (Auto) 9L, Monocytes (%) (Auto) 8, Eosinophils (%) (Auto) 5, Basophils (%) (Auto) 1, Neutrophils # (Auto) 6.1, Lymphocytes # (Auto) 0.7L, Monocytes # (Auto) 0.6, Eosinophils # (Auto) 0.4H, Basophils # (Auto) 0.0, Immature Granulocyte # (Auto) 0.1, Sodium Level 142, Potassium Level 3.6, Chloride Level 104, Carbon Dioxide Level 28, Anion Gap 10, Blood Urea Nitrogen 24H, Creatinine 1.10, Estimat Glomerular Filtration Rate 48, BUN/Creatinine Ratio 22, Glucose Level 80, Calcium Level 8.1L, Phosphorus Level 2.9, Magnesium Level 1.8 06/18/20 10:25: Glucometer 78 Microbiology 06/14/20 MRSA Screen - Final, Complete MRSA not isolated 06/11/20 Blood Culture - Final, Complete No growth 06/11/20 Urine Culture - Final, Complete Escherichia coli Laboratory Tests 06/16/20 14:25 06/16/20 20:50 06/17/20 04:10 06/18/20 03:45 A/P: Assessment: SSS with PAF and tachy-cornelius syndrome - Dual chamber pacemaker implanted on 06/14/20 to control bradycardia, fun ctioning normally on interrogation of 06/15/20 - Beta-blockers for tachycardia - Oral anticoag held because of hematochezia that the primary care team is managing Chronic HFpEF, currently clinically compensated - Echo Mar 2020: LVEF 55-65 percent, grade 2 diastolic dysfunction, left atrial dilatation, mitral valve sclerosis, moderate aortic stenosis, pulmonary hypertension with PA pressure 45-50 mmHg Acute lower GI bleed and anemia during this hospitalization of May 2020, being managed pcp - OAC on hold due the above - Colonoscopy with hot biopsy polypectomy x3 and placement of Resolution clip (for continuing bleeding after polypectomy) in the cecum - Marked blood loss anemia requiring blood transfusions Acute on chronic renal insufficiency, 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 Intolerant to multiple medications, history of orthostatic dizziness and hypotension Chronic chest pain syndrome, continuing during this hospitalization - cardiac catheterization done in August 2019 showed diffuse moderate coronary artery disease involving all her coronary system, nonobstructive disease - some chest discomfort documented to be associated with episode of PAF Intermittent hypoxia of undetermined etiology - no evidence of PE on VQ scan of 06/17/20 Diabetes mellitus, followed and managed by primary care physician History of recurrent UTI with multidrug resistance, managed by primary care team Degenerative joint disease History of intolerance to statin with intolerant to angiotensin receptor neeru H/o PAD but no significant claudication at this time Mild bilateral carotid stenosis Chronic pedal edema with history of chronic venous insufficiency History of urinary incontinence Plan: * Management remains complex due to multiple comorbidities and symptoms * I had a detailed discussion with Dr Bhakta on 06-17-20 who feels that pt is not safe for oral anticoag at this time * Given only mild to mod CAD and given GI bleed, we do not feel DAPT is needed. Accordingly, we are discontinuing Plavix and changing ASA to 81 qod * We recommend resumption of oral anticoag as soon as safe from Medical and Surgical standpoint * Monitor labs JENNIFER PITTMAN MD FACP FAC CCDS Jun 18, 2020 13:56
[2020-06-18] MEDS: polyethylene glycoL POWDER 17 GM (MIRALAX) PACK PO SCH (20:28)
[2020-06-18] MEDS: MELATONIN 3 MG TABLET PO SCH (21:15)
[2020-06-18] MEDS: amLODIPine 10 MG (NORVASC) TAB PO SCH (21:15)
[2020-06-18] MEDS: FENOFIBRATE 134 MG (LOFIBRA) CAPSULE PO SCH (21:15)
[2020-06-19 04:00] VITALS: BP 161/75
[2020-06-19 05:36] LABS: EOSINOPHILS # (AUTO) 0.4 10^3/uL (0.0-0.3); HEMOGLOBIN 9.5 g/dL (11.5-16.0); MEAN PLATELET VOLUME 10.4 fL (9.0-12.2)
[2020-06-19 05:38] LABS: BASOPHILS # (AUTO) 0.1 10^3/uL (0.0-0.1); BASOPHILS % (AUTO) 1 % (0-10); EOSINOPHILS % (AUTO) 6 % (0-10); HEMATOCRIT 30 % (35-52); LYMPHOCYTES # (AUTO) 0.7 10^3/uL (1.0-4.0); LYMPHOCYTES % (AUTO) 12 % (12-44); MEAN CORPUSCULAR HEMOGLOBIN 30 pg (25-34); MEAN CORPUSCULAR HGB CONC 32 g/dL (32-36); MEAN CORPUSCULAR VOLUME 95 fL (80-99); MONOCYTES # (AUTO) 0.6 10^3/uL (0.0-1.0); MONOCYTES % (AUTO) 9 % (0-12); NEUTROPHILS # (AUTO) 4.4 10^3/uL (1.8-7.8); NEUTROPHILS % (AUTO) 71 % (42-75); PLATELET COUNT 192 10^3/uL (130-400); WHITE BLOOD COUNT 6.2 10^3/uL (4.3-11.0)
[2020-06-19 05:45] LABS: POTASSIUM 3.4 MMOL/L (3.6-5.0)
[2020-06-19 05:46] LABS: CALCIUM 8.6 MG/DL (8.5-10.1)
[2020-06-19 05:51] LABS: CREATININE SERUM 1.11 MG/DL (0.60-1.30)
[2020-06-19] MEDS: inSUlin ASPART (NovoLOG) 1 UNIT/0.01 ML (CHARGE PER UNIT) SQ SCH ×4 (05:52→21:21)
[2020-06-19 05:53] LABS: MAGNESIUM 1.6 MG/DL (1.6-2.4)
[2020-06-19] MEDS: SUCRALFATE 1 GM (CARAFATE) TAB PO SCH ×4 (06:27→21:22)
[2020-06-19] MEDS: FUROSEMIDE 40 MG (LASIX) TAB PO SCH ×2 (06:27→16:53)
[2020-06-19] MEDS: LEVOTHYROXINE 125 MCG (LEVOTHROID) TABLET PO SCH (06:27)
[2020-06-19] MEDS: glipiZIDE 5 MG (GLUCOTROL) TAB PO SCH ×2 (06:28→16:53)
[2020-06-19] MEDS: CATHETER FLUSH 10 ML SYR IV SCH ×3 (06:37→21:22)
[2020-06-19 07:40] VITALS: BP 201/82
[2020-06-19] MEDS: meTOprolol SUCCINATE 100 MG (TOPROL XL) TAB PO SCH (08:12)
[2020-06-19] MEDS: ARTIFICAL TEARS 0.4 ML UNIT DOSE (REFRESH PLUS) OU SCH ×3 (08:12→21:22)
[2020-06-19] MEDS: PANTOPRAZOLE 40 MG (PROTONIX) TAB PO SCH (08:12)
[2020-06-19] MEDS: ISOSORBIDE MONONITRATE 60 MG (IMDUR) TAB PO SCH (08:12)
[2020-06-19] MEDS: LACTOBACILLUS ACIDOPHILUS (PROBIOTIC) CAPSULE PO SCH (08:12)
[2020-06-19] MEDS: eZETimibe 10 MG (ZETIA) TABLET PO SCH (08:12)
[2020-06-19] MEDS: MAGNESIUM OXIDE (MAG-OX)400 MG TAB PO SCH (08:13)
[2020-06-19] MEDS: ASPIRIN 81 MG CHEW (CHILDREN'S ASA) PO SCH (08:16)
[2020-06-19] MEDS: ENOXAPARIN 40 MG/0.4 ML (LOVENOX) SYR SC SCH (08:16)
[2020-06-19] MEDS: VITAMIN D3 125 MCG (5,000 UNITS) CAPSULE PO SCH (08:19)
--- NOTE | 2020-06-19 08:48 | Progress Note ---
Subjective Subjective Date Seen by Provider: Jun 19, 2020 Time Seen by Provider: 08:47 PT REPORTS THAT SHE IS FEELING WELL TODAY. SHE DENIES ANY CHEST PAIN OR SHORTNESS OF BREATH OVERNIGHT. SHE DENIES ABDOMINAL PAIN, NAUSEA, DIZZINESS. SHE HAS QUESTIONS ABOUT IF SHE CAN GO BACK TO ASSISTED LIVING RATHER THAN GOING BACK TO ALF PRIOR TO BEING ABLE TO GO BACK TO HER AL APARTMENT. PT C/O THRUSH SYMPTOMS. Review of Systems General: No Chills, No Night Sweats; Fatigue HEENT: No Head Aches, No Visual Changes, No Dysphasia; Other (SORE MOUTH) Pulmonary: Dyspnea; No Cough Cardiovascular: No: Chest Pain, Palpitations, Edema, Lt Headedness Gastrointestinal: No: Nausea, Vomiting, Abdominal Pain, Diarrhea, Constipation, Hematochezia Genitourinary: No Dysuria, No Frequency Musculoskeletal: No: neck pain, back pain, leg pain Neurological: No: Weakness, Numbness All Other Systems Reviewed All Other Systems Reviewed: Yes (Negative excepted noted.) Objective Exam Vital Signs Vital Signs - First Documented 06/13/20 00:08 Temp 36.1 Pulse 82 Resp 20 B/P (MAP) 148/70 (96) Pulse Ox 97 O2 Delivery Nasal Cannula O2 Flow Rate 2.00 Capillary Refill : Greater Than 3 Seconds General Appearance: No Apparent Distress, Chronically ill, Obese Eyes: Bilateral Eye Normal Inspection, Bilateral Eye PERRL, Bilateral Eye EOMI HEENT: PERRL/EOMI, Pharynx Normal, Moist Mucous Membranes, Pale Conjunctivae (L), Pale Conjunctivae (R) Neck: Normal Inspection, Non Tender Respiratory: Chest Non Tender, No Accessory Muscle Use, No Respiratory Distress, Decreased Breath Sounds, Wheezing (bilateral) Cardiovascular: Regular Rate, Rhythm, Normal Peripheral Pulses, Systolic Murmur, Other (paced at 60) Gastrointestinal: Normal Bowel Sounds, Non Tender, Soft Rectal: Deferred Back: Normal Inspection, No CVA Tenderness Extremity: Normal Inspection, Non Tender, No Calf Tenderness; No Calf Tenderness; Pedal Edema, Other (moderate nonpitting BLE L>R) Neurologic/Psychiatric: Alert, Oriented x3, Normal Mood/Affect Skin: Warm/Dry, Pallor Lymphatic: No Adenopathy Results Lab Laboratory Tests 06/18/20 10:25: Glucometer 78 06/18/20 16:34: Glucometer 126H 06/18/20 21:11: Glucometer 115H 06/19/20 05:27: White Blood Count 6.2, Red Blood Count 3.18L, Hemoglobin 9.5L, Hematocrit 30L, Mean Corpuscular Volume 95, Mean Corpuscular Hemoglobin 30, Mean Corpuscular Hemoglobin Concent 32, Red Cell Distribution Width 14.5, Platelet Count 192, Mean Platelet Volume 10.4, Immature Granulocyte % (Auto) 1, Neutrophils (%) (Auto) 71, Lymphocytes (%) (Auto) 12, Monocytes (%) (Auto) 9, Eosinophils (%) (Auto) 6, Basophils (%) (Auto) 1, Neutrophils # (Auto) 4.4, Lymphocytes # (Auto) 0.7L, Monocytes # (Auto) 0.6, Eosinophils # (Auto) 0.4H, Basophils # (Auto) 0.1, Immature Granulocyte # (Auto) 0.1, Sodium Level 143, Potassium Level 3.4L, Chloride Level 103, Carbon Dioxide Level 29, Anion Gap 11, Blood Urea Nitrogen 27H, Creatinine 1.11, Estimat Glomerular Filtration Rate 47, BUN/Creatinine Ratio 24, Glucose Level 76, Calcium Level 8.6, Phosphorus Level 3.0, Magnesium Level 1.6 Microbiology 06/14/20 MRSA Screen - Final, Complete MRSA not isolated 06/11/20 Blood Culture - Final, Complete No growth 06/11/20 Urine Culture - Final, Complete Escherichia coli Assessment/Plan Assessment/Plan Admission Dx NEW ONSET ATRIAL FIBRILLATION ACUTE GASTROINTESTINAL BLEED ACUTE ON CHRONIC DIASTOLIC HEART FAILURE CHRONIC RECURRENT URINARY TRACT INFECTION HYPERTENSION ANEMIA ACUTE ON CHRONIC RENAL FAILURE DIABETES MELLITUS Assessment and Plan NEW ONSET ATRIAL FIBRILLATION ACUTE GASTROINTESTINAL BLEED ACUTE ON CHRONIC DIASTOLIC HEART FAILURE CHRONIC RECURRENT URINARY TRACT INFECTION HYPERTENSION ANEMIA ACUTE ON CHRONIC RENAL FAILURE DIABETES MELLITUS NEW ONSET ATRIAL FIBRILLATION - PT IS STATUS POST PACEMAKER PLACEMENT BY DR. PITTMAN -PT STABLE ON METOPROLOL, HEART RATE BETTER CONTROLLED AT THIS TIME. - PT IS AT HIGHER RISK OF EMBOLIC STROKE DUE TO NOT BEING ON ANTICOAGULATION AT THIS TIME. I HAVE DISCUSSED HER CASE WITH DR. PITTMAN AND DR. UGARTE WELL WITH THE PATIENT AND HER FAMILY (OVER THE PHONE) AND WE WILL INITIATE LOVENOX FOR DVT PROPHYLAXIS. SHE HAD EXTENSIVE DIVERTICULITIS ON HER SCOPE WHICH IS MOST LIKELY THE SOURCE OF HER GI BLEEDING. HOWEVER DUE TO HER EXTENSIVE GASTROINTESTINAL OUTPUT DURING HER BLEED (1.4 LITERS), THERE IS VERY REAL CONCERN OF STARTING HER ON ELIQUIS OR XARELTO AND LEADING TO ANOTHER EXTENSIVE BLEED WHEN SHE IS AN OUTPATIENT - SHE LIVES IN ASSISTED LIVING AND IF SHE WERE TO PASS OUT ON THE TOILET DUE TO A BLEED, THERE IS A VERY HIGH POSSIBILITY OF HER HAVING A NON- RECOVERABLE/SURVIVABLE EVENT. ROBERT AND HER DTR - HELGA- AND GRAND-DAUGHTER- CHANELLE WERE ALL IN AGREEMENT THAT THEY WOULD RATHER TAKE THE RISK OF A STROKE OVER THE RISK OF BLEEDING RIGHT NOW. THE PLAN WILL BE FOR ROBERT TO BE GIVEN LOVENOX IN THE HOSPITAL, ASPIRIN Q 48 HOURS, AND ATTEMPT TO GET HER TO HAVE ROUTINE BOWEL MOVEMENTS AND MONITOR FOR BLOODY OUTPUT. IF SHE DOES WELL, AND IS STABLE, AND HAS NO MORE BLEEDING THEN WE WILL CONSIDER XARELTO OR ELIQUIS AN OUTPATIENT. (XARELTO WOULD BE PREFERABLE TO THE PT AND FAMILY DUE TO COST OF MEDICATIONS). I HAVE THEREFORE INITIATED DVT PROPHYLAXIS DOSING ON LOVENOX, AND WILL MONITOR HER LABS CLOSELY WELL. ACUTE GASTROINTESTINAL BLEED - CONSULT PLACED TO DR. UGARTE, SERIAL H AND H'S ORDERED, MONITOR SYMPTOMS CLOSELY, COLONOSCOPE REVEALED NO ACUTE SOURCE OF BLEED, BIOPSIES TAKEN AND SHOWED HYPERPLASTIC POLYS X 2 AND A TUBULAR ADENOMA. - PLAVIX DISCONTINUED, ASPIRIN RESTARTED AT 81MG Q48HR. -DISCUSSED WITH PT - SHE IS NOT CERTAIN THAT SHE WANTS TO BE ON ANTICOAGULATION DESPITE RISK OF EMBOLIC STROKE ACUTE ON CHRONIC DIASTOLIC HEART FAILURE - PT ON LASIX, MONITOR SYMPTOMS CHRONIC RECURRENT URINARY TRACT INFECTION - PT ON MEROPENEM, - LAST DOSE TODAY. HYPERTENSION - PT ON HOME REGIMEN ANEMIA - STABLE AT THIS TIME, SHE HAS CHRONIC ANEMIA ACUTE ON CHRONIC RENAL FAILURE - MONITOR LABS, CONTINUE WITH LOW DOSE FLUIDS DIABETES MELLITUS - STABLE HYPOXIC EVENT ON 06/16/2020 WITH CHEST PAIN - VQ SCAN NEGATIVE. THRUSH - RX FOR NYSTATIN SWISH AND SWALLOW ORDERED. Clinical Quality Measures DVT/VTE Risk/Contraindication: Contraindications-Pharm: Other *list below* Other: gi bleed HIRAL WOLF MD Jun 19, 2020 08:48
--- NOTE | 2020-06-19 10:22 | Progress Note ---
Subjective Date Seen by a Provider: Jun 19, 2020 Time Seen by a Provider: 09:45 Subjective/Events-last exam Patient seen with Dr. Nguyễn. Patient reports doing well today. Reports having 2 BMs yesterday with no blood. Denies any abdominal pain or any N/V. Tolerating diet. Objective Exam Vital Signs Date Time Temp Pulse Resp B/P (MAP) Pulse Ox O2 Delivery O2 Flow Rate FiO2 06/19/20 07:40 37.0 74 18 201/82 (121) 96 Nasal Cannula 2.00 06/19/20 07:00 59 06/19/20 04:00 36.6 63 18 161/75 (103) 97 Nasal Cannula 2.00 06/19/20 01:00 60 06/18/20 23:44 36.4 61 20 162/60 (94) 96 Nasal Cannula 2.00 06/18/20 20:42 37.0 60 20 164/70 (101) 97 Nasal Cannula 2.00 06/18/20 20:00 Nasal Cannula 2.00 06/18/20 19:00 60 06/18/20 18:23 96 Nasal Cannula 2.00 06/18/20 15:13 36.9 60 18 171/72 (105) 99 Nasal Cannula 2.00 06/18/20 13:15 36.5 61 16 196/85 (122) 97 Room Air 06/18/20 12:39 60 06/18/20 11:20 36.7 63 13 127/58 (81) 94 Nasal Cannula 1.00 I & O 06/19/20 07:00 Intake Total 1370 ml Output Total 2675 ml Balance -1305 ml Capillary Refill : Greater Than 3 Seconds General Appearance: No Apparent Distress, WD/WN Neck: Full Range of Motion, Normal Inspection Respiratory: No Accessory Muscle Use, No Respiratory Distress Cardiovascular: Regular Rate, Rhythm, No Edema Gastrointestinal: normal bowel sounds, non tender, soft Extremity: Normal Inspection, Normal Range of Motion Neurologic/Psychiatric: Alert, Oriented x3 Skin: Normal Color, Warm/Dry Results Lab Laboratory Tests 06/18/20 10:25: Glucometer 78 06/18/20 16:34: Glucometer 126H 06/18/20 21:11: Glucometer 115H 06/19/20 05:27: White Blood Count 6.2, Red Blood Count 3.18L, Hemoglobin 9.5L, Hematocrit 30L, Mean Corpuscular Volume 95, Mean Corpuscular Hemoglobin 30, Mean Corpuscular Hemoglobin Concent 32, Red Cell Distribution Width 14.5, Platelet Count 192, Mean Platelet Volume 10.4, Immature Granulocyte % (Auto) 1, Neutrophils (%) (Auto) 71, Lymphocytes (%) (Auto) 12, Monocytes (%) (Auto) 9, Eosinophils (%) (Auto) 6, Basophils (%) (Auto) 1, Neutrophils # (Auto) 4.4, Lymphocytes # (Auto) 0.7L, Monocytes # (Auto) 0.6, Eosinophils # (Auto) 0.4H, Basophils # (Auto) 0.1, Immature Granulocyte # (Auto) 0.1, Sodium Level 143, Potassium Level 3.4L, Chloride Level 103, Carbon Dioxide Level 29, Anion Gap 11, Blood Urea Nitrogen 27H, Creatinine 1.11, Estimat Glomerular Filtration Rate 47, BUN/Creatinine Ratio 24, Glucose Level 76, Calcium Level 8.6, Phosphorus Level 3.0, Magnesium Level 1.6 Microbiology 06/14/20 MRSA Screen - Final, Complete MRSA not isolated 06/11/20 Blood Culture - Final, Complete No growth 06/11/20 Urine Culture - Final, Complete Escherichia coli Assessment/Plan Assessment/Plan Assess & Plan/Chief Complaint An 84 year old female with lower GI bleed. VSS Hgb 9.5 no signs clinical bleed and Hb stable. Constipation - on laxatives and had 2 BMs yesterday Clinical Quality Measures DVT/VTE Risk/Contraindication: Contraindications-Pharm: Other *list below* Other: gi bleed JACKY MELIVN SENIOR WAREHOUSE CLERK Jun 19, 2020 10:22
[2020-06-19 11:30] VITALS: BP 182/76
[2020-06-19] MEDS ORDERED: amLODIPine 5 MG (NORVASC) TAB PO ONE (11:45)
[2020-06-19] MEDS: NYSTATIN ORAL SUSP 5 ML UDC PO SCH ×2 (12:04→16:53)
[2020-06-19] MEDS: NS IV 1000 ML 1,000 ML IV SCH ×2 (12:04→17:16)
--- NOTE | 2020-06-19 13:36 | Progress Note - Cardiology ---
Cardiology SOAP Progress Note Subjective: Shortness of breath somewhat better No cp No palp or syncope or swelling No n/v/d Gen malaise present Objective: I&O/Vital Signs 06/19/20 06/19/20 06/19/20 06/19/20 04:00 07:00 07:40 08:00 Temp 36.6 37.0 Pulse 63 59 74 Resp 18 18 B/P (MAP) 161/75 (103) 201/82 (121) Pulse Ox 97 96 O2 Delivery Nasal Cannula Nasal Cannula Nasal Cannula O2 Flow Rate 2.00 2.00 1.00 06/19/20 11:30 Temp 36.8 Pulse 70 Resp 18 B/P (MAP) 182/76 (111) Pulse Ox 98 O2 Delivery Nasal Cannula O2 Flow Rate 1.00 06/19/20 00:00 Intake Total 570 ml Output Total 800 ml Balance -230 ml Weight (Pounds): 190 Weight (Ounces): 8.3 Weight (Calculated Kilograms): 86.297288 Device Insertion Site: without hematoma Bruising: mild bruising Constitutional: AAO x 3, well-developed, well-nourished Respiratory: No accessory muscle use; other (good bilateral air entry) Cardiovascular: regular rate-rhythm, S1 and S2, systolic murmur (soft DEVAN at card base) Gastrointestional: No tender; soft; No guarding, No rebound; audible bowel sounds Extremities: No clubbing, No cyanosis, No significant edema Neurologic/Psychiatric: oriented x 3, other (moves all limbs equally) Skin: warm/dry; No cool; pallor; No rash on exposed areas, No ulcerations on exposed areas Results/Procedures: Labs Laboratory Tests 06/18/20 16:34: Glucometer 126H 06/18/20 21:11: Glucometer 115H 06/19/20 05:27: White Blood Count 6.2, Red Blood Count 3.18L, Hemoglobin 9.5L, Hematocrit 30L, Mean Corpuscular Volume 95, Mean Corpuscular Hemoglobin 30, Mean Corpuscular Hemoglobin Concent 32, Red Cell Distribution Width 14.5, Platelet Count 192, Mean Platelet Volume 10.4, Immature Granulocyte % (Auto) 1, Neutrophils (%) (Auto) 71, Lymphocytes (%) (Auto) 12, Monocytes (%) (Auto) 9, Eosinophils (%) (Auto) 6, Basophils (%) (Auto) 1, Neutrophils # (Auto) 4.4, Lymphocytes # (Auto) 0.7L, Monocytes # (Auto) 0.6, Eosinophils # (Auto) 0.4H, Basophils # (Auto) 0.1, Immature Granulocyte # (Auto) 0.1, Sodium Level 143, Potassium Level 3.4L, Chloride Level 103, Carbon Dioxide Level 29, Anion Gap 11, Blood Urea Nitrogen 27H, Creatinine 1.11, Estimat Glomerular Filtration Rate 47, BUN/Creatinine Ratio 24, Glucose Level 76, Calcium Level 8.6, Phosphorus Level 3.0, Magnesium Level 1.6 06/19/20 11:36: Glucometer 98 Microbiology 06/14/20 MRSA Screen - Final, Complete MRSA not isolated 06/11/20 Blood Culture - Final, Complete No growth 06/11/20 Urine Culture - Final, Complete Escherichia coli Laboratory Tests 06/18/20 03:45 06/19/20 05:27 A/P: Assessment: SSS with PAF and tachy-cornelius syndrome - Dual chamber pacemaker implanted on 06/14/20 to control bradycardia, functioning normally on interrogation of 06/15/20 - Beta-blockers for tachycardia - Oral anticoag held because of hematochezia that the primary care team is managing Chronic HFpEF, currently clinically compensated - Echo Mar 2020: LVEF 55-65 percent, grade 2 diastolic dysfunction, left atrial dilatation, mitral valve sclerosis, moderate aortic stenosis, pulmonary hypertension with PA pressure 45-50 mmHg Acute lower GI bleed and anemia during this hospitalization of May 2020, being managed pcp - OAC on hold due the above - Colonoscopy with hot biopsy polypectomy x3 and placement of Resolution clip (for continuing bleeding after polypectomy) in the cecum - Marked blood loss anemia requiring blood transfusions Acute on chronic renal insufficiency, 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 Intolerant to multiple medications, history of orthostatic dizziness and hypotension Chronic chest pain syndrome, continuing during this hospitalization - cardiac catheterization done in August 2019 showed diffuse moderate coronary artery disease involving all her coronary system, nonobstructive disease - some chest discomfort documented to be associated with episode of PAF Intermittent hypoxia of undetermined etiology - no evidence of PE on VQ scan of 06/17/20 Diabetes mellitus, followed and managed by primary care physician History of recurrent UTI with multidrug resistance, managed by primary care team Degenerative joint disease History of intolerance to statin with intolerant to angiotensin receptor neeru H/o PAD but no significant claudication at this time Mild bilateral carotid stenosis Chronic pedal edema with history of chronic venous insufficiency History of urinary incontinence Plan: * Management remains complex due to multiple comorbidities and symptoms * We recommend resumption of oral anticoag as soon as safe from Medical and Surgical standpoint * Replenish K * Monitor labs JENNIFER PITTMAN MD FACP FAC CCDS Jun 19, 2020 13:36
[2020-06-19] MEDS ORDERED: KCL 20 MEQ TAB (K-DUR) PO ONE (13:45)
[2020-06-19 16:11] VITALS: BP 180/76
[2020-06-19] MEDS: polyethylene glycoL POWDER 17 GM (MIRALAX) PACK PO SCH (19:48)
[2020-06-19 20:00] VITALS: BP 177/75
[2020-06-19] MEDS: FENOFIBRATE 134 MG (LOFIBRA) CAPSULE PO SCH (21:22)
[2020-06-19] MEDS: MELATONIN 3 MG TABLET PO SCH (21:22)
[2020-06-19] MEDS: amLODIPine 10 MG (NORVASC) TAB PO SCH (21:22)
[2020-06-20] VITALS: BP 181/72
[2020-06-20] MEDS: NYSTATIN ORAL SUSP 5 ML UDC PO SCH ×2 (00:30→06:51)
[2020-06-20 04:30] VITALS: BP 174/92
[2020-06-20] MEDS: inSUlin ASPART (NovoLOG) 1 UNIT/0.01 ML (CHARGE PER UNIT) SQ SCH ×2 (05:26→11:03)
[2020-06-20] MEDS: CATHETER FLUSH 10 ML SYR IV SCH (05:58)
[2020-06-20 06:11] LABS: BASOPHILS # (AUTO) 0.1 10^3/uL (0.0-0.1); BASOPHILS % (AUTO) 1 % (0-10); EOSINOPHILS # (AUTO) 0.4 10^3/uL (0.0-0.3); EOSINOPHILS % (AUTO) 6 % (0-10); HEMATOCRIT 31 % (35-52); HEMOGLOBIN 9.6 g/dL (11.5-16.0); LYMPHOCYTES % (AUTO) 15 % (12-44); MEAN CORPUSCULAR HEMOGLOBIN 30 pg (25-34); MEAN CORPUSCULAR HGB CONC 32 g/dL (32-36); MEAN CORPUSCULAR VOLUME 95 fL (80-99); MEAN PLATELET VOLUME 9.3 fL (9.0-12.2); MONOCYTES # (AUTO) 0.6 10^3/uL (0.0-1.0); MONOCYTES % (AUTO) 8 % (0-12); NEUTROPHILS # (AUTO) 4.7 10^3/uL (1.8-7.8); NEUTROPHILS % (AUTO) 68 % (42-75); PLATELET COUNT 274 10^3/uL (130-400); WHITE BLOOD COUNT 6.9 10^3/uL (4.3-11.0)
[2020-06-20 06:33] LABS: POTASSIUM 3.2 MMOL/L (3.6-5.0)
[2020-06-20 06:34] LABS: CALCIUM 8.6 MG/DL (8.5-10.1)
[2020-06-20 06:38] LABS: CREATININE SERUM 1.26 MG/DL (0.60-1.30); PHOSPHORUS 3.4 MG/DL (2.3-4.7)
[2020-06-20 06:40] LABS: MAGNESIUM 1.5 MG/DL (1.6-2.4)
[2020-06-20] MEDS: LEVOTHYROXINE 125 MCG (LEVOTHROID) TABLET PO SCH (06:51)
[2020-06-20] MEDS: glipiZIDE 5 MG (GLUCOTROL) TAB PO SCH (06:51)
[2020-06-20] MEDS: FUROSEMIDE 40 MG (LASIX) TAB PO SCH (06:51)
[2020-06-20] MEDS: SUCRALFATE 1 GM (CARAFATE) TAB PO SCH ×2 (06:52→10:42)
--- NOTE | 2020-06-20 07:47 | Progress Note ---
Subjective Subjective Date Seen by Provider: Jun 20, 2020 Time Seen by Provider: 07:20 Pt seen and examined. She was awake, laying in bed, NAD. She denies current SOB, chest pain, N/V, lightheadedness, leg pain. No episodes of chest pain overnight. No acute events overnight. Pt states she has had multiple BM's over the past couple of days. She has no other concerns/complaints Review of Systems General: No Chills, No Night Sweats; Fatigue HEENT: No Head Aches, No Visual Changes, No Dysphasia; Other (SORE MOUTH) Pulmonary: Dyspnea; No Cough Cardiovascular: No: Chest Pain, Palpitations, Edema, Lt Headedness Gastrointestinal: No: Nausea, Vomiting, Abdominal Pain, Diarrhea, Constipation, Hematochezia Genitourinary: No Dysuria, No Frequency Musculoskeletal: No: neck pain, back pain, leg pain Neurological: No: Weakness, Numbness All Other Systems Reviewed All Other Systems Reviewed: Yes (Negative excepted noted.) Objective Exam Vital Signs Vital Signs - First Documented 06/14/20 00:00 Temp 36.4 Pulse 106 Resp 20 B/P (MAP) 154/77 (102) Pulse Ox 95 O2 Delivery Nasal Cannula O2 Flow Rate 2.00 Capillary Refill : Greater Than 3 Seconds General Appearance: No Apparent Distress, WD/WN Eyes: Bilateral Eye Normal Inspection, Bilateral Eye PERRL, Bilateral Eye EOMI HEENT: PERRL/EOMI, Pharynx Normal, Moist Mucous Membranes, Pale Conjunctivae (L), Pale Conjunctivae (R) Neck: Full Range of Motion, Normal Inspection Respiratory: No Accessory Muscle Use, No Respiratory Distress Cardiovascular: Regular Rate, Rhythm, No Edema, Systolic Murmur Gastrointestinal: Normal Bowel Sounds, Non Tender, Soft Rectal: Deferred Back: Normal Inspection, No CVA Tenderness Extremity: Normal Range of Motion, Other (moderate nonpitting edema BLE) Neurologic/Psychiatric: Alert, Oriented x3, No Motor/Sensory Deficits, Normal Mood/Affect Skin: Normal Color, Warm/Dry Lymphatic: No Adenopathy Results Lab Laboratory Tests 06/19/20 11:36: Glucometer 98 06/19/20 16:13: Glucometer 139H 06/19/20 21:10: Glucometer 132H 06/20/20 05:23: Glucometer 77 06/20/20 05:39: White Blood Count 6.9, Red Blood Count 3.21L, Hemoglobin 9.6L, Hematocrit 31L, Mean Corpuscular Volume 95, Mean Corpuscular Hemoglobin 30, Mean Corpuscular Hemoglobin Concent 32, Red Cell Distribution Width 14.3, Platelet Count 274, Mean Platelet Volume 9.3, Immature Granulocyte % (Auto) 2, Neutrophils (%) (Auto) 68, Lymphocytes (%) (Auto) 15, Monocytes (%) (Auto) 8, Eosinophils (%) (Auto) 6, Basophils (%) (Auto) 1, Neutrophils # (Auto) 4.7, Lymphocytes # (Auto) 1.0, Monocytes # (Auto) 0.6, Eosinophils # (Auto) 0.4H, Basophils # (Auto) 0.1, Immature Granulocyte # (Auto) 0.1, Sodium Level 144, Potassium Level 3.2L, Chloride Level 100, Carbon Dioxide Level 33H, Anion Gap 11, Blood Urea Nitrogen 28H, Creatinine 1.26, Estimat Glomerular Filtration Rate 41, BUN/Creatinine Ratio 22, Glucose Level 73, Calcium Level 8.6, Phosphorus Level 3.4, Magnesium Level 1.5L Microbiology 06/14/20 MRSA Screen - Final, Complete MRSA not isolated 06/11/20 Blood Culture - Final, Complete No growth 06/11/20 Urine Culture - Final, Complete Escherichia coli Assessment/Plan Assessment/Plan Assessment and Plan Acute GI bleed - resolved, Hgb stable Acute exacerbation of diastolic CHF Syncopal episodes Paroxysmal Afib Chronic chest pain syndrome UTI Acute on chronic kidney failure - Cr 1.26 HTN - Difficult to control, home meds and continue to monitor Anemia - Hgb 9.6, received 2U total Hypokalemia - K 3.2 L foot pain - s/p BP cuff placement COPD HLD T2DM Cardiology following, continue diuresis. DC pacemaker placed 06/15. Aspirin QOD, stop Plavix, hold Eliquis d/t bleeding risk. General Surgery consulted for GI bleed. colonoscopy 06/15: polyps/diverticulosis with no signs of active bleed V/Q scan 06/17: normal perfusion K supplementation as needed Lovenox for DVT prophylaxis Continue to monitor VS/labs Clinical Quality Measures DVT/VTE Risk/Contraindication: Contraindications-Pharm: Other *list below* Other: gi bleed MARIELY GRIJALVA MED STUDENT Jun 20, 2020 07:47
[2020-06-20] MEDS ORDERED: POTASSIUM CL 10MEQ/50ML IVPB 50 ML IV SCH (08:00)
[2020-06-20] MEDS: LACTOBACILLUS ACIDOPHILUS (PROBIOTIC) CAPSULE PO SCH (08:00)
[2020-06-20] MEDS: VITAMIN D3 125 MCG (5,000 UNITS) CAPSULE PO SCH (08:00)
[2020-06-20] MEDS: MAGNESIUM OXIDE (MAG-OX)400 MG TAB PO SCH (08:00)
[2020-06-20] MEDS: eZETimibe 10 MG (ZETIA) TABLET PO SCH (08:01)
[2020-06-20] MEDS: PANTOPRAZOLE 40 MG (PROTONIX) TAB PO SCH (08:01)
[2020-06-20] MEDS: ISOSORBIDE MONONITRATE 60 MG (IMDUR) TAB PO SCH (08:01)
[2020-06-20] MEDS: meTOprolol SUCCINATE 100 MG (TOPROL XL) TAB PO SCH (08:01)
[2020-06-20] MEDS: ARTIFICAL TEARS 0.4 ML UNIT DOSE (REFRESH PLUS) OU SCH (08:01)
[2020-06-20] MEDS: NS IV 1000 ML 1,000 ML IV SCH (08:24)
[2020-06-20] MEDS ORDERED: ASPI81TA64 PO (09:03)
[2020-06-20] MEDS ORDERED: MIRT-47 PO (09:03)
[2020-06-20] MEDS ORDERED: MTP100TCR PO (09:03)
[2020-06-20] MEDS ORDERED: POTA10TA36 PO (09:03)
[2020-06-20] MEDS ORDERED: NYST1000 PO (09:03)
[2020-06-20] MEDS ORDERED: DICL100G18 TOP (09:03)
[2020-06-20] MEDS ORDERED: FURO40TA4 PO (09:03)
--- NOTE | 2020-06-20 09:05 | D/C HH Face to Face Order ---
D/C Face to Face Orders Reconcile Patient Problems Problems Reviewed?: Yes Instructions for Patient Via [email or web address], Patient Instructions/FollowUp: 1 wk [facility] Physician to follow Patient: dorothy Discharge Diet for Home: ADA Diet Patient Problems: diabetes mellitus hypertension weakness afib gi bleed Patient Data-Allergies,Ht & Wt Patient Allergies: Coded Allergies: sertraline (Verified Allergy, Severe, CANNOT BREATHE, 03/14/17) Cephalosporins (Unverified Allergy, Mild, 03/14/17) Iodinated Contrast Media (Unverified Allergy, Mild, 03/14/17) Penicillins (Unverified Allergy, Mild, 03/14/17) Shellfish (Unverified Allergy, Mild, 03/14/17) atorvastatin (Unverified Allergy, Mild, 03/14/17) clarithromycin (Unverified Allergy, Mild, 03/14/17) codeine (Unverified Allergy, Mild, PT HAS RECEIVED HYDROMORPHONE IN THE PAST, 03/14/17) diltiazem (Unverified Allergy, Mild, 03/14/17) glucagon (Unverified Allergy, Mild, 03/14/17) lisinopril (Unverified Allergy, Mild, 03/14/17) morphine (Unverified Allergy, Mild, PT HAS RECEIVED HYDROMORPHONE IN THE PAST, 03/14/17) nifedipine (Unverified Allergy, Mild, 03/14/17) paroxetine (Unverified Allergy, Mild, 03/14/17) sulfamethoxazole (Unverified Allergy, Mild, 03/14/17) acetaminophen (Verified Allergy, Unknown, 03/14/17) benzocaine (Verified Allergy, Unknown, methemoglobinemia, 05/14/18) latex (Verified Allergy, Unknown, 03/14/17) meperidine (Verified Allergy, Unknown, PATIENT HAS RECEIVED FENTANYL IN THE PAST, 03/14/17) metoprolol (Verified Allergy, Unknown, 02/17/20) propoxyphene (Verified Allergy, Unknown, 03/14/17) sulindac (Verified Allergy, Unknown, 03/14/17) tramadol (Verified Allergy, Unknown, 04/12/17) Uncoded Allergies: TAPE (Allergy, Unknown, CAN USE PAPER TAPE, 9/9/09) Height (Feet): 5 Height (Inches): 3.00 Weight (Pounds): 190 Weight (Ounces): 8.3 Home Health Need/Face to Face Date of Face to Face: Jun 20, 2020 Clinical Findings: Generalized weakness and fatigue, Muscle weakness, Shortness of breath I have seen Pt [id number]: Yes Discharged To: Home Diagnosis/Conditions: diabetes mellitus hypertension weakness afib gi bleed Patient is Homebound due to: [employer] fall risk due to instabilty, Muscle weakness , Shortness of breath/distress Homebound Status Due to the above stated illness, injury or surgical procedure (medical condition or diagnosis) and associated clinical findings, the patient is homebound because of his/her inability to leave home except with aid of a supportive device and/or person AND leaving the home requires a considerable and taxing effort or is medically contraindicated. Pt req the following assistanc: Aid of another person Home Health Nursing Orders Home Health Services Order: Nursing Services, Care Team Coordinator Scheduler-Evaluate & Treat, Physical Therapy-Evaluate & Treat cbc, cmp in 1 wk from [place] [facility] Therapy Line Start Date: Jun 16, 2020 Therapy Orders Therapy Orders: Physical Therapy Therapy Specific Orders: Increase strength/endurance Certify Stmt I certify that this patient is under my care and that I, a nurse practitioner or a physician; a blood donor unit assistant working with me, had a face to face encounter that -m eets the physician face to face encounter requirements with this patient as dated. HIRAL WOLF MD Jun 20, 2020 09:05
--- NOTE | 2020-06-20 09:07 | Discharge Summary ---
Diagnosis/Chief Complaint Date of Admission Jun 11, 2020 at 14:11 Date of Discharge Discharge Date: Jun 20, 2020 Discharge Time: 1000 Discharge Summary Discharge Physical Examination Allergies: Coded Allergies: sertraline (Verified Allergy, Severe, CANNOT BREATHE, 03/14/17) Cephalosporins (Unverified Allergy, Mild, 03/14/17) Iodinated Contrast Media (Unverified Allergy, Mild, 03/14/17) Penicillins (Unverified Allergy, Mild, 03/14/17) Shellfish (Unverified Allergy, Mild, 03/14/17) atorvastatin (Unverified Allergy, Mild, 03/14/17) clarithromycin (Unverified Allergy, Mild, 03/14/17) codeine (Unverified Allergy, Mild, PT HAS RECEIVED HYDROMORPHONE IN THE PAST, 03/14/17) diltiazem (Unverified Allergy, Mild, 03/14/17) glucagon (Unverified Allergy, Mild, 03/14/17) lisinopril (Unverified Allergy, Mild, 03/14/17) morphine (Unverified Allergy, Mild, PT HAS RECEIVED HYDROMORPHONE IN THE PAST, 03/14/17) nifedipine (Unverified Allergy, Mild, 03/14/17) paroxetine (Unverified Allergy, Mild, 03/14/17) sulfamethoxazole (Unverified Allergy, Mild, 03/14/17) acetaminophen (Verified Allergy, Unknown, 03/14/17) benzocaine (Verified Allergy, Unknown, methemoglobinemia, 05/14/18) latex (Verified Allergy, Unknown, 03/14/17) meperidine (Verified Allergy, Unknown, PATIENT HAS RECEIVED FENTANYL IN THE PAST, 03/14/17) metoprolol (Verified Allergy, Unknown, 02/17/20) propoxyphene (Verified Allergy, Unknown, 03/14/17) sulindac (Verified Allergy, Unknown, 03/14/17) tramadol (Verified Allergy, Unknown, 04/12/17) Uncoded Allergies: TAPE (Allergy, Unknown, CAN USE PAPER TAPE, 12/08/08) Vitals & I&Os Vital Signs Date Time Temp Pulse Resp B/P (MAP) Pulse Ox O2 Delivery O2 Flow Rate FiO2 06/20/20 04:30 36.0 76 18 174/92 (119) 96 Nasal Cannula 2.00 Hospital Course Pending Labs Laboratory Tests 06/20/20 05:23: Glucometer 77 06/20/20 05:39: White Blood Count 6.9, Red Blood Count 3.21, Hemoglobin 9.6, Hematocrit 31, Mean Corpuscular Volume 95, Mean Corpuscular Hemoglobin 30, Mean Corpuscular Hemoglobin Concent 32, Red Cell Distribution Width 14.3, Platelet Count 274, Mean Platelet Volume 9.3, Immature Granulocyte % (Auto) 2, Neutrophils (%) (Auto) 68, Lymphocytes (%) (Auto) 15, Monocytes (%) (Auto) 8, Eosinophils (%) (Auto) 6, Basophils (%) (Auto) 1, Neutrophils # (Auto) 4.7, Lymphocytes # (Auto) 1.0, Monocytes # (Auto) 0.6, Eosinophils # (Auto) 0.4, Basophils # (Auto) 0.1, Immature Granulocyte # (Auto) 0.1, Sodium Level 144, Potassium Level 3.2, Chloride Level 100, Carbon Dioxide Level 33, Anion Gap 11, Blood Urea Nitrogen 2 8, Creatinine 1.26, Estimat Glomerular Filtration Rate 41, BUN/Creatinine Ratio 22, Glucose Level 73, Calcium Level 8.6, Phosphorus Level 3.4, Magnesium Level 1.5 Discharge Instructions to patient/family Please see electronic discharge instructions given to patient. Discharge Medications Reviewed and agree with Discharge Medication list on patient's Discharge Instruction sheet Clinical Quality Measures DVT/VTE Risk/Contraindication: Contraindications-Pharm: Other *list below* Other: gi bleed HIRAL WOLF MD Jun 20, 2020 09:07
[2020-06-20 09:57] VITALS: BP 174/92
[2020-06-20] MEDS: ENOXAPARIN 40 MG/0.4 ML (LOVENOX) SYR SC SCH (10:42)
== END 2020-06-20 11:20 | disposition home or self-care (01) | DRG 242 ==
LOC: EDUNIT# 10:32 → ER 10:33 → 4TH 14:11 → CSD 06-13 08:04 → ICU 06-14 12:59 → 4TH 06-18 13:08
PROVIDERS: ADMIT Family Medicine; ATTEND Family Medicine
PROC: 0JH606Z Insertion of Pacemaker, Dual Chamber into Chest Subcutaneous Tissue and Fascia, Open Approach (ICD-10-PCS; principal; 2020-06-14)
PROC: 02H63JZ Insertion of Pacemaker Lead into Right Atrium, Percutaneous Approach (ICD-10-PCS; 2020-06-14)
PROC: 02HK3JZ Insertion of Pacemaker Lead into Right Ventricle, Percutaneous Approach (ICD-10-PCS; 2020-06-14)
PROC: 0DBK8ZX Excision of Ascending Colon, Via Natural or Artificial Opening Endoscopic, Diagnostic (ICD-10-PCS; 2020-06-15)
PROC: 0DBL8ZX Excision of Transverse Colon, Via Natural or Artificial Opening Endoscopic, Diagnostic (ICD-10-PCS; 2020-06-15)
PROC: 0DBH8ZX Excision of Cecum, Via Natural or Artificial Opening Endoscopic, Diagnostic (ICD-10-PCS; 2020-06-15)
PROC: 0W3P8ZZ Control Bleeding in Gastrointestinal Tract, Via Natural or Artificial Opening Endoscopic (ICD-10-PCS; 2020-06-15)
DX: I13.0 Hypertensive heart and chronic kidney disease with heart failure and stage 1 through stage 4 chronic kidney disease, or unspecified chronic kidney disease (principal); I50.33 Acute on chronic diastolic (congestive) heart failure; K57.31 Diverticulosis of large intestine without perforation or abscess with bleeding; N39.0 Urinary tract infection, site not specified; J44.9 Chronic obstructive pulmonary disease, unspecified; I25.10 Atherosclerotic heart disease of native coronary artery without angina pectoris; E78.00 Pure hypercholesterolemia, unspecified; G43.909 Migraine, unspecified, not intractable, without status migrainosus; K21.9 Gastro-esophageal reflux disease without esophagitis; M19.90 Unspecified osteoarthritis, unspecified site; E03.9 Hypothyroidism, unspecified; E11.22 Type 2 diabetes mellitus with diabetic chronic kidney disease; Z79.4 Long term (current) use of insulin; F41.9 Anxiety disorder, unspecified; F32.9 Major depressive disorder, single episode, unspecified; D64.9 Anemia, unspecified; I48.0 Paroxysmal atrial fibrillation; E87.6 Hypokalemia; R09.02 Hypoxemia; R07.9 Chest pain, unspecified; G89.4 Chronic pain syndrome; B96.20 Unspecified Escherichia coli [E. coli] as the cause of diseases classified elsewhere; B37.9 Candidiasis, unspecified; K63.5 Polyp of colon; I49.5 Sick sinus syndrome; N18.30 Chronic kidney disease, stage 3 unspecified; E11.21 Type 2 diabetes mellitus with diabetic nephropathy; I27.20 Pulmonary hypertension, unspecified; I65.23 Occlusion and stenosis of bilateral carotid arteries; I87.2 Venous insufficiency (chronic) (peripheral); N28.9 Disorder of kidney and ureter, unspecified; Z88.5 Allergy status to narcotic agent; Z88.0 Allergy status to penicillin; Z88.8 Allergy status to other drugs, medicaments and biological substances; Z91.041 Radiographic dye allergy status; Z91.040 Latex allergy status; Z79.82 Long term (current) use of aspirin
CPT/HCPCS: 33208; 36415; 71045; 71046; 80048; 80053; 81000; 82962; 83605; 83735; 83880; 84100; 84484; 85007; 85014; 85018; 85025; 85027; 86141; 86850; 86900; 86901; 86920; 87040; 87077; 87081; 87088; 87186; 88305; 93005; 93041; 94760; 96374